=== PATIENT | female | born 1965 | race Caucasian/White ===

== ENCOUNTER 2017-11-17 09:29 | Emergency (ER) | payer MEDICAID, SELFPAY ==
[2017-11-17 09:30] VITALS: BP 105/62; PULSE 96; RESP 16; TEMP 36.5; O2SAT 100; BMI 19.5
--- NOTE | 2017-11-17 09:48 | EKG12_ITS ---
Test Reason : BACK PAIN Blood Pressure : / mmHG Vent. Rate : 087 BPM Atrial Rate : 087 BPM P-R Int : 156 ms QRS Dur : 090 ms QT Int : 358 ms P-R-T Axes : 069 077 074 degrees QTc Int : 430 ms Normal sinus rhythm Normal ECG Confirmed by JUAN MANUEL SUAZO, SHERIN ([id number]), electronic news gathering editor MIREYA WEISS ([id number]) on 11/22/2017 9:02:17 AM Referred By: TATO Confirmed By:SHERIN ZAMBRANO MD
--- NOTE | 2017-11-17 09:49 | CT_ITS ---
STUDY: CT CHEST WITH CONTRAST REASON FOR EXAM: Female, 52 years old. Chest pain. Lung cancer. RADIATION DOSAGE (If Supplied By Facility): CTDIvol = ( 7.66 ) mGy, DLP = ( 381.24 ) mGycm TECHNIQUE: Transaxial imaging was performed following intravenous administration of 75 ml of Isovue 370 contrast material. Individualized dose optimization techniques were used for this CT. COMPARISON: 05/31/2017 FINDINGS: Lungs are adequately inflated. Again noted is a left perihilar spiculated mass which is increased in size since prior exam. Now measuring 2.1 cm AP by 2 cm wide. Increased size of nodules in the left lower lobe as well. No acute airspace disease is noted. Increased spiculated nodule in the right upper lobe. There is no demonstrated pleural abnormality. Normal heart and pericardium. Increased mediastinal and bilateral hilar lymphadenopathy. Normal hilar regions. Normal enhanced pulmonary arteries. Normal aorta arch and descending thoracic aorta. No large pulmonary embolism. Normal osseous structures. There is no demonstrated abnormality of the visualized upper abdomen. CT/Chest WITH Contrast IMPRESSION: Increased size of mediastinal and bihilar lymphadenopathy as well as left perihilar spiculated mass and multiple increase in size of left lower lobe pulmonary nodules. Indicating worsening disease. No evidence of large pulmonary embolism. No acute airspace disease. Electronically Signed: David Sarmiento DO at 11:51 EDT Tel , Service support ,
[2017-11-17 10:17] LABS: Hematocrit 35.5 % (37-47); Hemoglobin 11.7 g/dl (12.0-15.0); Mean Corpuscular Hgb 31.5 pg (27.0-32.0); Mean Corpuscular Volume 95.4 fL (81-99); Mean Platelet Vol. 9.5 fl (6.2-12.0); Platelet Count 151 K/mm3 (150-450); RBC Distribution Width CV 15.4 % (11.6-14.6); RBC Distribution Width SD 52.4 fl (35.1-43.9); Red Blood Count 3.72 M/mm3 (4.2-5.4); White Blood Count 11.5 K/mm3 (4.4-11.0)
--- NOTE | 2017-11-17 10:17 | ED.VISSUMM ---
- ER Visit Summary Date of Service: 11/17/17 Chief Complaint: Back pain History of Present Illness: The patient is a 52 F who states that last night she developed the pain in her right scapular region. She states it is very sharp. It is worse with deep breathing. She states that this feels similar to the pain she experienced in her chest when she was diagnosed with pulmonary embolism. Patient has a history of small cell lung carcinoma stage IIIb. She states that she had been in remission until last summer. She is currently seeing oncology in [place]. Patient sees Dr. Mckeon from pulmonology here at this hospital. She is not currently on blood thinners. Patient notes a worsening of her cough. She denies any neurologic deficits. Physical Examination: 105/62 temperature 97.3 heart rate of 96 respirations are 16 pulse ox is 100% on room air Gen: Well-nourished well-developed Head: Normocephalic atraumatic Eyes: Perrl EOMI ENT: TMs clear no rhinorrhea moist mucous membranes Neck: Supple no lymphadenopathy no JVD nontender CVS: Regular rate rhythm no murmurs normal S1-S2 Respiratory: No distress clear to auscultation bilaterally chest nontender dry cough. Abdomen: Soft nontender nondistended normal bowel sounds no masses Back: Tender to palpation along the right thoracic musculature Extremity: Nontender no edema Skin: Normal color no rash Neuro: alert orientated ?3 CN II-XII intact normal strength sensation reflexes gait cerebellar Psych: Patient is tearful Test Results: EKG shows a sinus rhythm at a rate of 87. White count 11.5. Hemoglobin 11.7. Platelets are 151. Troponin less than 0.02. CTA of the chest does not demonstrate pulmonary embolism. There is noted worsening of her cancer. Emergency Department Course and Treatment: Patient received IV fluids, Dilaudid, and Zofran. She is asleep on repeat examination and was easily awoken. Patient was advised that sometimes patient with aggressive cancers can have severe pain and is not always easily diagnosed. I will write for her to have oxycodone because she does not have any pain medication at home. She states she has not needed it. Patient will be following up with her oncologist return if worsening. Impression: 1. Right thoracic back pain 2. Small cell lung cancer stage IIIB This note was generated with MD Revolutionation software. It may contain incorrect words, spelling, and punctuation that were not noted in review of the chart prior to signing ED Disposition - Plan for ED Patient: Disposition: Home or Assisted Living Chief Complaint: Back Instructions: ED Neck Back Pain General Prescriptions: Oxycodone [Oxyir] 10 mg PO Q6H PRN PRN 5 Days #40 tab PRN Reason: Pain Additional Instructions: Follow-up with your oncologist as scheduled. Please take your CT report with them. Follow-up with your primary care doctor soon as possible.
[2017-11-17 10:18] LABS: Differential Indicated MANUAL DIFF; POSITIVE COUNT YES; POSITIVE DIFFERENTIAL NO; POSITIVE MORPHOLOGY YES
--- NOTE | 2017-11-17 10:20 | ED.DCSUM_ITS ---
- ER Visit Summary Date of Service: 11/17/17 Chief Complaint: Back pain History of Present Illness: The patient is a 52 F who states that last night she developed the pain in her right scapular region. She states it is very sharp. It is worse with deep breathing. She states that this feels similar to the pain she experienced in her chest when she was diagnosed with pulmonary embolism. Patient has a history of small cell lung carcinoma stage IIIb. She states that she had been in remission until last summer. She is currently seeing oncology in [place]. Patient sees Dr. Mckeon from pulmonology here at this hospital. She is not currently on blood thinners. Patient notes a worsening of her cough. She denies any neurologic deficits. Physical Examination: 105/62 temperature 97.3 heart rate of 96 respirations are 16 pulse ox is 100% on room air Gen: Well-nourished well-developed Head: Normocephalic atraumatic Eyes: Perrl EOMI ENT: TMs clear no rhinorrhea moist mucous membranes Neck: Supple no lymphadenopathy no JVD nontender CVS: Regular rate rhythm no murmurs normal S1-S2 Respiratory: No distress clear to auscultation bilaterally chest nontender dry cough. Abdomen: Soft nontender nondistended normal bowel sounds no masses Back: Tender to palpation along the right thoracic musculature Extremity: Nontender no edema Skin: Normal color no rash Neuro: alert orientated ?3 CN II-XII intact normal strength sensation reflexes gait cerebellar Psych: Patient is tearful Test Results: EKG shows a sinus rhythm at a rate of 87. White count 11.5. Hemoglobin 11.7. Platelets are 151. Troponin less than 0.02. CTA of the chest does not demonstrate pulmonary embolism. There is noted worsening of her cancer. Emergency Department Course and Treatment: Patient received IV fluids, Dilaudid , and Zofran. She is asleep on repeat examination and was easily awoken. Patient was advised that sometimes patient with aggressive cancers can have severe pain and is not always easily diagnosed. I will write for her to have oxycodone because she does not have any pain medication at home. She states she has not needed it. Patient will be following up with her oncologist return if worsening. Impression: 1. Right thoracic back pain 2. Small cell lung cancer stage IIIB This note was generated with mycirQleation software. It may contain incorrect words, spelling, and punctuation that were not noted in review of the chart prior to signing ED Disposition - Plan for ED Patient: Disposition: Home or Assisted Living Chief Complaint: Back Instructions: ED Neck Back Pain General Prescriptions: Oxycodone [Oxyir] 10 mg PO Q6H PRN PRN 5 Days #40 tab PRN Reason: Pain Additional Instructions: Follow-up with your oncologist as scheduled. Please take your CT report with them. Follow-up with your primary care doctor soon as possible.
[2017-11-17] MEDS: 0.9% Normal Saline 1,000 ML 1000 ML IV (10:22)
[2017-11-17] MEDS: HYDROmorphone 1 MG/ML Syringe IV (10:22)
[2017-11-17] MEDS: 0.9% Normal Saline 1,000 ML 150 ML IV (10:22)
[2017-11-17] MEDS: Ondansetron 4 MG/2 ML Vial IV (10:22)
[2017-11-17 10:24] LABS: Prothrombin Time (Protime)PT. 13.1 SECONDS (11.7-14.9)
[2017-11-17 10:25] LABS: Partial Thromboplast Time 48.3 Seconds (24.1-36.2)
[2017-11-17 10:29] VITALS: BP 94/71; PULSE 88; RESP 15; O2SAT 94
[2017-11-17 10:34] LABS: AST(SGOT) 12 U/L (15-37); Alanine Aminotransfer ALT/SGPT 29 U/L (13-56); Albumin, Serum 3.7 g/dL (3.2-5.0); Alkaline Phosphatase 127 U/L (45-117); Anion Gap 7 (5-15); BUN 9 mg/dL (7-18); Calcium,Total 8.6 mg/dL (8.5-10.1); Chloride 105 mmol/L (98-107); Creatinine, Serum 0.56 mg/dL (0.55-1.02); EST Glomerular Filtration Rate 119 mL/min (>60); Est Glom Filt Rate - Afr Amer 144 mL/min (>60); Estimated Creatinine Clearance 100.51 ml/min; Globulin 3.7 g/dL (2.2-4.2); Glucose 102 mg/dL (74-106); Potassium 3.9 mmol/L (3.5-5.1); Protein, Total 7.4 g/dL (6.4-8.2); Sodium Level 140 mmol/L (136-145)
[2017-11-17 10:50] LABS: Absolute Neutrophil Count 8.9 X10^3/uL (2.0-7.7); Basophil 1 % (0-1); Eosinophil 3 % (0-5); Lymphocyte 11 % (19-41); Metamyelocyte 1 % (0-1); Monocyte 7 % (0-10); Neutrophil-Segmented 77 % (47-70); Platelet Estimate ADEQUATE (ADEQ); Red Cell Morphology NORM C+C NORMAL (NORM C&C); Total Cells Counted 100 (MANUAL DIFF)
[2017-11-17 10:51] LABS: Absolute Lymphocyte Count 1.27 X10^3/ul (0.83-4.51)
[2017-11-17 12:12] VITALS: BP 95/70; PULSE 90; RESP 21; O2SAT 95
[2017-11-17 12:13] VITALS: BP 90/70; PULSE 91; RESP 21; O2SAT 94
[2017-11-18 10:20] LABS: Pathologist Review Reviewed
== END 2017-11-17 12:47 | disposition home or self-care (01) ==
PROVIDERS: Emergency Provider Emergency Medicine; Family Provider Family Medicine; PCP Family Medicine
DX: M54.6 Pain in thoracic spine (principal); C34.90 Malignant neoplasm of unspecified part of unspecified bronchus or lung; Z86.711 Personal history of pulmonary embolism; J44.9 Chronic obstructive pulmonary disease, unspecified; Z72.0 Tobacco use
CPT/HCPCS: 71260; 80053; 84484; 85025; 85610; 85730; 93005; 96361; 96374; 96375; 99284; J7030; Q9967; A4216; J2405

== ENCOUNTER → 2018-01-17 12:51 | Outpatient (CLI) | payer MEDICAID, SELFPAY ==
--- NOTE | 2018-01-17 12:51 | DT_ITS ---
This patient was seen during an EMR downtime January 16, 2018 - January 23, 2018. This patient may have a combination of paper and electronic documentation or all paper documentation. All documentation is viewable within the e-chart portion of [facility] for each patient visit.
--- NOTE | 2018-01-23 11:20 | PFT ---
INTRODUCTION: The patient is a 52-year-old female that presents for pulmonary function testing secondary to a diagnosis of lung cancer. Respiratory therapy reports good patient effort. Bronchodilators were used during testing. INTERPRETATION: Forced expiration spirometry demonstrates no evidence of a large airways obstructive ventilatory defect, based upon GOLD and ATS criteria. There was no significant response to aerosolized bronchodilators. Spirograms are of good quality and plateau gradually. Body plethysmography was performed and reveals lung volumes to be within normal limits. Diffusing capacity by single breath CO is preserved at 75% of predicted. IMPRESSION: These pulmonary function studies are essentially within normal limits.
== END ==
PROVIDERS: Family Provider Family Medicine; PCP Family Medicine; Visit Provider Internal Medicine Critical Care Medicine
DX: C34.90 Malignant neoplasm of unspecified part of unspecified bronchus or lung (principal); J44.9 Chronic obstructive pulmonary disease, unspecified
CPT/HCPCS: 94060; 94726; 94729

== ENCOUNTER → 2018-03-13 09:38 | Outpatient (CLI) | payer MEDICAID, SELFPAY ==
--- NOTE | 2018-03-13 09:41 | RAD_ITS ---
STUDY: X-RAY - ESOPHAGUS (BARIUM SWALLOW) WITH FLUOROSCOPY REASON FOR EXAM: Female, 52 years old. Dysphagia. TECHNIQUE: 20 view(s) of the esophagus were obtained following swallowing of barium. FLUOROSCOPY TIME (if supplied): (0:41) minutes/seconds COMPARISON: None. FINDINGS: There is no demonstrated esophageal foreign body. There is no demonstrated stricture or mucosal abnormality. Normal gastroesophageal junction, without a demonstrated hiatal hernia. The patient ingested a 12 mm tablet of barium without any difficulty. Normal visualized aortic arch and descending thoracic aorta. Normal visualized pulmonary parenchyma. A jeffrey catheter is seen within the superior vena cava. Normal visualized osseous structures of the thorax. RAD/Esophagus Only IMPRESSION: Normal plain film x-ray examination (barium swallow) of the esophagus. Electronically Signed: Rodney Schwartz MD at 9:17 EDT Tel [phone], Service support ,
== END ==
PROVIDERS: Family Provider Family Medicine; PCP Family Medicine; Visit Provider Otolaryngology Otolaryngology/Facial Plastic Surgery
DX: R13.10 Dysphagia, unspecified (principal); J38.01 Paralysis of vocal cords and larynx, unilateral; C34.90 Malignant neoplasm of unspecified part of unspecified bronchus or lung
CPT/HCPCS: 74220

== ENCOUNTER 2018-05-16 17:25 | Inpatient (IN) | payer MEDICAID, SELFPAY ==
[2018-05-16] VITALS (13 sets, daily range): BP systolic 76–107; BP diastolic 59–90; PULSE 89–101; RESP 13–23; TEMP 36.4–36.6; O2SAT 97–100; BMI 19.2; BMI 19.5; BMI 19.6
--- NOTE | 2018-05-16 17:32 | EKG12_ITS ---
Test Reason : CHEST PAIN Blood Pressure : / mmHG Vent. Rate : 102 BPM Atrial Rate : 102 BPM P-R Int : 160 ms QRS Dur : 114 ms QT Int : 416 ms P-R-T Axes : 078 111 064 degrees QTc Int : 542 ms Sinus tachycardia Biatrial enlargement RSR' or QR pattern in V1 suggests right ventricular conduction delay Left posterior fascicular block Cannot rule out Anterior infarct , age undetermined Inferior lateral ischemia Confirmed by JUAN MANUEL SUAZO, SHERIN ([id number]), deputy editor in chief MIREYA WEISS ([id number]) on 05/22/2018 3:34:35 PM Referred By: Eyad Blue Confirmed By:SHERIN ZAMBRANO MD
--- NOTE | 2018-05-16 17:35 | RAD_ITS ---
STUDY: X-RAY CHEST REASON FOR EXAM: Female, 52 years old. Weakness and decreased oral intake x 2 days. History of lung cancer. TECHNIQUE: Single AP portable upright view of the chest. COMPARISON: AP upright expiratory post biopsy chest x-ray January 04, 2017; CT chest/thorax with IV contrast November 17, 2017. FINDINGS: MediPort again seen in the soft tissues of the right chest wall, its catheter extending to the superior vena cava. Ill-defined right perihilar stranding/scarring, minor peripheral scarring in the lateral right apex, as well as bronchiectatic and emphysematous changes in the medial and apical right upper lobe again noted. Faint nodular density with an eccentric gaseous lucency projecting over the lateral right mid lung may be artifact. The lungs are otherwise clear and borderline to mildly hyperexpanded. There is no demonstrated pleural abnormality. Normal size heart. Normal mediastinum and dyan. Normal visualized pulmonary arteries. Normal visualized aortic arch and descending thoracic aorta. Normal visualized thoracic spine. Normal visualized ribs, clavicles, and shoulders. There is no demonstrated abnormality of the visualized soft tissue structures of the upper abdomen. RAD/Chest 1 View (Portable) IMPRESSION: Stable x-ray examination of the chest since CT chest/thorax November 17, 2017, as described. Electronically Signed: Ken Real MD at 17:56 EDT , Service support ,
[2018-05-16] MEDS: 0.9% Normal Saline 1,000 ML IV.SOLN. 2000 ML IV (17:44)
[2018-05-16] MEDS: Aspirin 300 MG Suppository RECTAL (17:51)
--- NOTE | 2018-05-16 18:05 | CM.ED ---
Social Work Note STEMI Alert called. Face to face with pt's friend, Brian, who also reports to be her HCPOA. Introduced self and role at [facility]. Per Brian the pt had chemo on Tuesday at the [facility] in [place], and it took a larger toll on her than it has in the past. He reports that she has not been eating well, and had stated that she started to use a walker on Tuesday because she had a fall. STEMI cancelled. Copied HCPOA and Living Will and placed in chart. Originals given back to Brian to place in pt's folder. Made aware that SW and RN CM on assigned unit can assist with discharge planning. Geri Robertson, MANAGER BOOK, LIGHTING FIXTURES DECORATOR
[2018-05-16 18:08] LABS: Bacteria 0 SEEN /hpf (None Seen); Mucous, Urine 0 SEEN /hpf (<or=2+)
[2018-05-16 18:14] LABS: Prothrombin Time (Protime)PT. 13.2 SECONDS (11.7-14.9)
[2018-05-16 18:20] LABS: Absolute Lymphocyte Count 1.01 X10^3/ul (0.83-4.51); Absolute Neutrophil Count 2.4 X10^3/uL (2.0-7.7); Basophil# 0.01 X10^3/uL; Basophil% 0.3 % (0-1); Eosinophil# 0.15 X10^3/uL; Eosinophils% 3.8 % (0-5); Hematocrit 38.6 % (37-47); Lymphocyte # 1.01 X10^3/ul (4.0); Lymphocyte % 25.6 % (19-41); Mean Corpuscular Volume 76.3 fL (81-99); Monocyte# 0.35 X10^3/uL; Monocyte% 8.9 % (0-10); Neutrophil # 2.42 X10^3/uL (2.7-7.7); Neutrophil % 61.1 % (47-70); Platelet Count 258 K/mm3 (150-450); RBC Distribution Width CV 16.8 % (11.6-14.6); RBC Distribution Width SD 46.6 fl (35.1-43.9); Red Blood Count 5.06 M/mm3 (4.2-5.4)
[2018-05-16 18:21] LABS: Mean Corp Hgb Conc 33.7 g/gl (32-36); Mean Corpuscular Hgb 25.7 pg (27.0-32.0); POSITIVE COUNT NO; POSITIVE DIFFERENTIAL NO; POSITIVE MORPHOLOGY NO
[2018-05-16 18:23] LABS: Lactic Acid 0.9 mmol/L (0.4-2.0)
[2018-05-16 18:24] LABS: Partial Thromboplast Time 157.3 Seconds (24.1-36.2)
--- NOTE | 2018-05-16 18:28 | ED.VISSUMM ---
- ER Visit Summary Date of Service: 05/16/18 Chief Complaint: Decreased p.o. intake History of Present Illness: The patient is a 52 F patient brought in by EMS for decreased p.o. intake. History of small cell lung cancer recurrent with multiple chemotherapy treatments. Reported last chemotherapy in the last week at [facility]. EMS EKG sent and had concerning for possible STEMI with isolated aVR elevation depression inferior lateral leads. STEMI team was activated, art history instructor Dr. Blue was in the department with her arrival. She was evaluated in the room together. She denied any chest pain, pressure, dyspnea, nausea, vomiting. Reports no p.o. intake for 2 days. No cardiac history. Tobacco history. Review records, noted history of psychiatric disorders of bipolar, depression, PTSD. Patient is a poor historian, additional records from [facility]. Physical Examination: General: thin cachetic, poor historian, protecting airway HEENT: Normocephalic, atraumatic. Dry mucosa membranes Neck: supple, nontender. Cardiovascular: Regular rate and rhythm, no murmurs Respiratory: Normal breath sounds, symmetric, no distress Abdomen: Soft, nontender, nondistended Extremities: Nontender, no edema, pulses intact ?4 Neuro: no focal neurological deficits. Test Results: Repeat EKG in room notes sinus rate of 102, isolated ST elevation in aVR depressions inferior lateral leads. T wave inversions V4 to V6 along with inferior leads. White count 4, hemoglobin 13. Potassium 2 sodium 126 creatinine 2.14, BUN 42. Troponin 0 0.015. Lactic acid 0.9. Blood culture x2 pending. Urine culture pending. Magnesium pending. Chest x-ray negative. Emergency Department Course and Treatment: Patient evaluated cardiology bedside. EKG with concerning findings. However she has no angina symptoms. Blood pressure systolic 76/61 on arrival, sepsis protocol will be initiated. She is afebrile. We will give aspirin. STEMI alert was called off by art history instructor Dr. Blue. Plan if elevated troponin will be to give 300 of Plavix, Lovenox and further workup as inpatient. Patient workup notes AK I with creatinine of 2.14 dyspnea. She has potassium 2.0. Magnesium sent and is pending. Sodium 126. Continue oral fluids blood pressure improved to 93/73 heart rate 93. On reevaluation patient more alert awake she is taken down oral fluids, will try oral potassium for replacement. This time concerns for prerenal AK I. She will continue IV fluids. Discussed with hospitalist, Dr. Waddell for admission to stepdown for close monitoring. Discussed plan of care if patient develops angina symptoms. Treatment Plan: [] Disposition: Admission Impression: 1. Acute kidney injury 2. Hypokalemia 3. Abnormal EKG 4. Hyponatremia 5. Small cell lung cancer This note was generated with Waygo dictation software. It may contain incorrect words, spelling, and punctuation that were not noted in review of the chart prior to signing ED Disposition - Plan for ED Patient: Disposition: Acute Care Hospital [facility] Chief Complaint: General Illness Diagnosis: Acute kidney injury, Hypokalemia, Abnormal EKG, Hyponatremia, Small cell lung cancer Referrals: Fausto Iverson DO [Primary Care Provider] -
--- NOTE | 2018-05-16 18:32 | ED.DCSUM_ITS ---
- ER Visit Summary Date of Service: 05/16/18 Chief Complaint: Decreased p.o. intake History of Present Illness: The patient is a 52 F patient brought in by EMS for decreased p.o. intake. History of small cell lung cancer recurrent with multiple chemotherapy treatments. Reported last chemotherapy in the last week at [facility]. EMS EKG sent and had concerning for possible STEMI with isolated aVR elevation depression inferior lateral leads. STEMI team was activated, night worker Dr. Blue was in the department with her arrival. She was evaluated in the room together. She denied any chest pain, pressure, dyspnea, nausea, vomiting. Reports no p.o. intake for 2 days. No cardiac history. Tobacco history. Review records, noted history of psychiatric disorders of bipolar, depression, PTSD. Patient is a poor historian, additional records from [facility]. Physical Examination: General: thin cachetic, poor historian, protecting airway HEENT: Normocephalic, atraumatic. Dry mucosa membranes Neck: supple, nontender. Cardiovascular: Regular rate and rhythm, no murmurs Respiratory: Normal breath sounds, symmetric, no distress Abdomen: Soft, nontender, nondistended Extremities: Nontender, no edema, pulses intact ?4 Neuro: no focal neurological deficits. Test Results: Repeat EKG in room notes sinus rate of 102, isolated ST elevation in aVR depressions inferior lateral leads. T wave inversions V4 to V6 along with inferior leads. White count 4, hemoglobin 13. Potassium 2 sodium 126 creatinine 2.14, BUN 42. Troponin 0 0.015. Lactic acid 0.9. Blood culture x2 pending. Urine culture pending. Magnesium pending. Chest x-ray negative. Emergency Department Course and Treatment: Patient evaluated cardiology bedside. EKG with concerning findings. However she has no angina symptoms. Blood pr essure systolic 76/61 on arrival, sepsis protocol will be initiated. She is afebrile. We will give aspirin. STEMI alert was called off by night worker Dr. Blue. Plan if elevated troponin will be to give 300 of Plavix, Lovenox and further workup as inpatient. Patient workup notes AK I with creatinine of 2.14 dyspnea. She has potassium 2.0. Magnesium sent and is pending. Sodium 126. Continue oral fluids blood pressure improved to 93/73 heart rate 93. On reevaluation patient more alert awake she is taken down oral fluids, will try oral potassium for replacement. This time concerns for prerenal AK I. She will continue IV fluids. Discussed with hospitalist, Dr. Waddell for admission to stepdown for close monitoring. Discussed plan of care if patient develops angina symptoms. Treatment Plan: [] Disposition: Admission Impression: 1. Acute kidney injury 2. Hypokalemia 3. Abnormal EKG 4. Hyponatremia 5. Small cell lung cancer This note was generated with LootWorks dictation software. It may contain incorrect words, spelling, and punctuation that were not noted in review of the chart prior to signing ED Disposition - Plan for ED Patient: Disposition: Acute Care Hospital [facility] Chief Complaint: General Illness Diagnosis: Acute kidney injury, Hypokalemia, Abnormal EKG, Hyponatremia, Small cell lung cancer Referrals: Fausto Iverson DO [Primary Care Provider] -
[2018-05-16 18:48] LABS: Color, Urine Yellow (Yellow); Glucose, Dipstick Normal (Normal); Ketone-Dipstick 50 mg/dl (Negative); Leukocyte Esterase-Dipstick 25 /ul (Negative); Nitrite-Dipstick Negative (Negative); Occult Blood-Urine 10 /ul (Negative); Protein-Dipstick 100 mg/dl (Negative); Urine Bilirubin Dipstick Negative (Negative); Urine Clarity Sl. Cloudy (Clear); Urine Urobilinogen Normal (Normal)
[2018-05-16 19:04] LABS: ALB/GLOB Ratio 0.8 RATIO (0.9-2.4); AST(SGOT) 53 U/L (15-37); Alanine Aminotransfer ALT/SGPT 37 U/L (13-56); Albumin, Serum 3.1 g/dL (3.2-5.0); Alkaline Phosphatase 110 U/L (45-117); Anion Gap 21 (5-15); BUN 42 mg/dL (7-18); BUN/Creat Ratio 19.6 RATIO (10-20); Calcium,Total 8.3 mg/dL (8.5-10.1); Chloride 96 mmol/L (98-107); Creatinine, Serum 2.14 mg/dL (0.55-1.02); EST Glomerular Filtration Rate 26 mL/min (>60); Est Glom Filt Rate - Afr Amer 31 mL/min (>60); Estimated Creatinine Clearance 25.92 ml/min; Globulin 4.1 g/dL (2.2-4.2); Glucose 67 mg/dL (74-106); Protein, Total 7.2 g/dL (6.4-8.2); Sodium Level 126 mmol/L (136-145)
[2018-05-16 19:18] LABS: Magnesium 2.8 mg/dL (1.6-2.6)
[2018-05-16 19:18] LABS: Red Blood Cells-Urine 0-5 SEEN /hpf (0-5); Squamous Epithelial Cells - UA 0-5 SEEN /hpf (5-10); White Blood Cells 0-5 SEEN /hpf (0-5)
[2018-05-16 19:19] LABS: Amorphous Sediment 1+ PHOS
[2018-05-16] MEDS: 0.9% Normal Saline 1,000 ML 150 ML IV (19:51)
--- NOTE | 2018-05-16 20:00 | PCM.HP.STD ---
Problem List (1) Nausea vomiting and diarrhea Status: Acute (2) Acute kidney injury Status: Acute (3) Hypokalemia Status: Acute (4) Abnormal EKG Status: Acute (5) Hyponatremia Status: Acute (6) Bipolar affect, depressed Status: Chronic Qualifiers: Current episode severity: moderate Qualified Code(s): F31.32 - Bipolar disorder, current episode depressed, moderate (7) Tobacco abuse Status: Chronic History of Present Illness Date of Admission: 05/16/18 Chief Complaint: Nausea, vomiting and diarrhea times x 10 days. The patient is a 52 year old F with a significant history of COPD; tobacco abuse; and right lung small cell carcinoma who presents with a 10-day history of nausea, vomiting and diarrhea. Patient came in with her friend who is her POA. Patient is less talkative because of lethargy. Per her friend and occasionally confirmed by patient, patient received a chemotherapy 10 days ago. She follows up with the [facility] [place] for chemotherapy. In the past she had radiation therapy also for her small cell lung cancer. After her chemotherapy 10 days ago patient have had above symptoms. Also associated with her symptoms is anorexia with decreased fluid and food intake.. Her friend who is a POA check on her on the day of admission and found that she has been lying pretty much at the same place in the past 10 days so he called EMS who brought patient here. Her friend to the patient might have lost some weight. Associated with her symptoms is lethargy. EKG reported by the paramedics showed some ST elevation so ST alert was called. ST elevation was subtle and occured only in aVR. Patient had no chest pain or diaphoresis. ED doctor reported conversation between him (ED Doctor) and retirement village manager. At the ED patient was given aspirin rectally. ED doctor reported that cardiology recommended Plavix and Lovenox if patient has an increase in troponin. And if patient has any chest pain cardiology should be called. Per ED doctor cardiology plans to get echocardiogram in am. Patient was found to have severely low potassium, low sodium and elevation of creatinine above her baseline. 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) Acid reflux disease (Chronic) Rotator cuff syndrome (Chronic) Adrenal nodule (Chronic) COPD (chronic obstructive pulmonary disease) (Chronic) Poor compliance with medication (Chronic) Left atrial thrombus (Chronic) Tobacco dependence (Chronic) PTSD (post-traumatic stress disorder) (Chronic) 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 [place] Spasm of back muscles (Chronic) Manic depression (Chronic) Dyspnea (Chronic) 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) Chest pain (Chronic) Medical History: Medical History (Last Reviewed 05/16/18 @ 20:50 by Sohan Waddell MD) Pulmonary embolism (Acute) I26.99 Tobacco abuse (Chronic) Z72.0 Muscle spasm (Chronic) M62.838 Periodontal disease (Acute) K05.6 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) Z79.01 Nausea & vomiting (Acute) R11.2 Acid reflux disease (Chronic) K21.9 Headache (Acute) R51 Rotator cuff syndrome (Chronic) M75.100 Adrenal nodule (Chronic) E27.9 Encounter for adjustment or management of vascular access device (Acute) Z45.2 Small cell lung cancer (Acute) C34.90 Regional lymph node metastasis present (Acute) C77.9 Lung metastasis (Acute) C78.00 COPD (chronic obstructive pulmonary disease) (Chronic) J44.9 Poor compliance with medication (Chronic) Z91.14 Left atrial thrombus (Chronic) [id number] Tobacco dependence (Chronic) F17.200 PTSD (post-traumatic stress disorder) (Chronic) F43.10 Thrombus of pulmonary vein (Chronic) I26.99 R pulmonary vein as it enters the LA Spasm of back muscles (Chronic) M62.830 Manic depression (Chronic) F31.9 Dyspnea (Chronic) R06.00 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) I82.210 Chest pain (Chronic) R07.9 Allergies acetaminophen [From Sudafed PE Severe Cold] Allergy (Verified 05/16/18 17:58) / dextromethorphan HBr [From Comtrex Cold-Cough] Allergy (Verified 05/16/18 17:58) Anaphylaxis diphenhydramine [From Sudafed PE Severe Cold] Allergy (Verified 05/16/18 17:58) / phenylephrine [From Sudafed PE Severe Cold] Allergy (Verified 05/16/18 17:58) / phenylephrine HCl [From Comtrex Cold-Cough] Allergy (Verified 05/16/18 17:58) Anaphylaxis Home Medications: Ambulatory Orders Medication Instructions Recorded Mirtazapine [Remeron] 7.5 mg PO QHS PRN 05/31/17 Cyclobenzaprine HCl 5 mg PO TID PRN 05/16/18 Diazepam 10 mg PO BID PRN 05/16/18 Ondansetron [Zofran] 8 mg PO Q8H PRN PRN 05/16/18 Oxycodone [Oxyir] 5 mg PO Q6H PRN PRN 05/16/18 Surgical History: Surgical History (Last Reviewed 05/16/18 @ 20:50 by Sohan Waddell MD) History of lung biopsy Z98.890 [facility] 09/29/17, Surgical History: - - 2 C sections and surgery on her foot Psychiatric History: Bipolar, 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 Smoking Status: Current every day smoker Tobacco Use: Cigarettes Alcohol: None - *Family History Maternal Family History: Family History (Last Reviewed 05/17/18 @ 03:08 by Sohan Waddell MD) Mother Diabetes Hypertension Cancer Father Cancer Headache Sister Cancer Brother Cancer History Items: Diabetes, Hypertension, - - mother of lung CA Paternal Family History: Family History (Last Reviewed 05/17/18 @ 03:08 by Sohan Waddell MD) Mother Diabetes Hypertension Cancer Father Cancer Headache Sister Cancer Brother Cancer History Items: - - father had pancreatitic CA Sibling Family History: Family History (Last Reviewed 05/17/18 @ 03:08 by Sohan Waddell MD) Mother Diabetes Hypertension Cancer Father Cancer Headache Sister Cancer Brother Cancer History Items: Cancer - 1 sister of lymphoma and a brother with pancreatic, - - no one in her family has been diagnosed with BPD Review of Systems Constitutional: Reports: Anorexia, Malaise, Weakness, Weight Change - subjective per friend, Fatigue. Denies: Chills, Fever Eyes: Denies: Blurred vision, Pain HEENT: Denies: Difficulty Hearing Cardiovascular: Denies: Chest Pain, Orthopnea, Palpitations Respiratory: Denies: Cough, Shortness of breath at rest, Sputum production Gastrointestinal: Reports: Diarrhea, Nausea, Vomiting. Denies: Abdominal Pain, Hematemesis Genitourinary: Denies: Dysuria Musculoskeletal: Denies: Joint Pain, Joint Tenderness Skin: Denies: Rash, Wounds Neurological: Reports: Confusion. Denies: Tremor Psychiatric: Denies: Anxiety, Depression, Homicidal Ideations, Suicidal Ideations Hematologic/ Lymphatic: Denies: Easy Bruising, Easy Bleeding VTE Information - Inpt Only VTE Present on Admission: No VTE Mechan Device Prophylaxis: None VTE Pharm Prophylaxis ordered?: Yes Patient Problems: Active and Suspected Problems (Last Reviewed 05/16/18 @ 20:50 by Soahn Waddell MD) Acute kidney injury (Acute) Hypokalemia (Acute) Abnormal EKG (Acute) Hyponatremia (Acute) Nausea vomiting and diarrhea (Acute) Small cell lung cancer (Acute) - Physical Exam General: Alert, Oriented x3, Cooperative, Lethargic HEENT: Atraumatic, PERRLA, EOMI, Normocephalic Oral: Dry Mucosa Neck: Supple, No JVD, Negative Carotid Bruits Lungs: Clear to auscultation, Rhonchi - mild Cardiovascular: Regular rate, No murmurs Abdomen: Bowel Sounds Present, Soft, Non Tender Extremities: No edema, Capillary Refill Less than 3 Seconds Skin: No rashes, No breakdown Musculoskeletal: No Tenderness to Palpation of Joints or Extremities Neurological: Cranial nerves II-XII grossly intact Psych/Mental Status: Normal Affect, Appropriate Vital Signs Temp Pulse Resp BP Pulse Ox 97.6 F L 89 16 94/64 98 05/16/18 17:30 05/16/18 19:52 05/16/18 19:52 05/16/18 19:52 05/16/18 17:57 Oxygen Flow Rate (L/min) 2 Oxygen Delivery Method Nasal Cannula Weight: 54 kg Body Mass Index (BMI) 19.2 Laboratory Tests Past 24 Hrs 05/16/18 05/16/18 05/16/18 17:35 17:35 17:35 WBC 4.0 L RBC 5.06 Hgb 13.0 Hct 38.6 MCV 76.3 L MCH 25.7 L MCHC 33.7 RDW 16.8 H RDW Differential 46.6 H Plt Count 258 MPV 9.0 Immature Gran % (Auto) 0.300 Neut % (Auto) 61.1 Lymph % (Auto) 25.6 Coffee % (Auto) 8.9 Eos % (Auto) 3.8 Baso % (Auto) 0.3 Absolute Neuts (auto) 2.4 Absolute Lymphs (auto) 1.01 Total Counted Not Reportable PT 13.2 INR 1.0 APTT 157.3 H* Sodium 126 L Potassium 2.0 L* Chloride 96 L Carbon Dioxide 9.0 L* Anion Gap 21 H BUN 42 H Creatinine 2.14 H Estim Creat Clear Calc 25.92 Est GFR (MDRD) Af Amer 31 L Est GFR (MDRD) Non-Af 26 L BUN/Creatinine Ratio 19.6 Glucose 67 L Lactic Acid Calcium 8.3 L Magnesium Total Bilirubin 0.40 AST 53 H ALT 37 Alkaline Phosphatase 110 Troponin I < 0.015 Total Protein 7.2 Albumin 3.1 L Globulin 4.1 Albumin/Globulin Ratio 0.8 L Urine Color Urine Clarity Urine pH Ur Specific [place] Urine Protein Urine Glucose (UA) Urine Ketones Urine Occult Blood Urine Nitrite Urine Bilirubin Urine Urobilinogen Ur Leukocyte Esterase Urine RBC Urine WBC Ur Squamous Epith Cells Amorphous Sediment Urine Bacteria Urine Mucus 05/16/18 05/16/18 05/16/18 17:35 17:35 18:00 WBC RBC Hgb Hct MCV MCH MCHC RDW RDW Differential Plt Count MPV Immature Gran % (Auto) Neut % (Auto) Lymph % (Auto) Coffee % (Auto) Eos % (Auto) Baso % (Auto) Absolute Neuts (auto) Absolute Lymphs (auto) Total Counted PT INR APTT Sodium Potassium Chloride Carbon Dioxide Anion Gap BUN Creatinine Estim Creat Clear Calc Est GFR (MDRD) Af Amer Est GFR (MDRD) Non-Af BUN/Creatinine Ratio Glucose Lactic Acid 0.9 Calcium Magnesium 2.8 H Total Bilirubin AST ALT Alkaline Phosphatase Troponin I Total Protein Albumin Globulin Albumin/Globulin Ratio Urine Color Yellow Urine Clarity Sl. Cloudy Urine pH 7.0 Ur Specific [place] 1.010 Urine Protein 100 H Urine Glucose (UA) Normal Urine Ketones 50 H Urine Occult Blood 10 H Urine Nitrite Negative Urine Bilirubin Negative Urine Urobilinogen Normal Ur Leukocyte Esterase 25 H Urine RBC 0-5 SEEN Urine WBC 0-5 SEEN Ur Squamous Epith Cells 0-5 SEEN Amorphous Sediment 1+ PHOS Urine Bacteria 0 SEEN Urine Mucus 0 SEEN Assessment/Plan All Active Problems (Last Reviewed 05/16/18 @ 20:50 by Sohan Waddell MD) Acute kidney injury (Acute) Hypokalemia (Acute) Abnormal EKG (Acute) Hyponatremia (Acute) Nausea vomiting and diarrhea (Acute) Pulmonary embolism (Acute) Periodontal disease (Acute) Nausea & vomiting (Acute) Headache (Acute) Encounter for adjustment or management of vascular access device (Acute) Small cell lung cancer (Acute) Regional lymph node metastasis present (Acute) Lung metastasis (Acute) The patient is a 52 year old F with a significant history of COPD; tobacco abuse; and right lung small cell carcinoma who received chemotherapy 10 days ago presenting with a 10-day history of nausea; vomiting; diarrhea; anorexia with poor p.o. intake; and lethargy and found to have severe electrolyte imbalance and abnormal EKG Gastroenteritis Likely due to Chemotherapy Emergency department lab, CBC and BMP were reviewed. Patient received IV fluid bolus at emergency department Normal NSS maintenance fluids initiated. Follow BMP and CBC. C. difficile, enteric pathogens and O&P ordered. Hypotension Likely due to diarrhea and poor p.o. intake causing hypovolemia. Lactic acid unremarkable. Sepsis less likely. Emergency department doctor reported that at emergency department patient's initial blood pressure was 76/51. Status post fluid bolus at emergency department Maintenance Normal Saline was started but changed to bicarbonate with dextrose due to hypoglycemia and severe metabolic acidosis.. Electrolytes imbalance likely due to dehydration and diarrhea Hyponatremia, hypokalemia Bicarbonate infusion as above Patient received potassium p.o. at emergency department. Patient was unable to swallow while inpatient. IV potassium ordered. Magnesium level actually elevated Trend BMP urine chloride urine potassium, urine sodium and urine creatinine ordered. MEAGAN Creatinine on admission was 2.14. Her baseline creatinine is around 0.56 to 0.79. IV fluid hydration as above Avoid nephrotoxic. Urine studies as above Abnormal EKG EKG personally reviewed by me showed less than [address] elevation in aVR and ST depression in inferolateral leads. Received aspirin at emergency department Aspirin and Lipitor daily Cardiology consulted Fasting lipids ordered. Trend troponin; so far negative Anion gap metabolic acidosis Bicarbonate on admission was 9. Anion gap is 21 Likely due to diarrhea and dehydration. Urine electrolytes and ABG ordered. ABG remarkable for metabolic acidosis; with appropriate respiratory compensation by Figueredo formula. Nephrology consult. Small cell lung cancer of the right lung This could also explain her hyponatremia. Oncology consulted. Hypoglycemia Blood glucose 67 on BMP while at ED. On the floor blood glucose was 52. D50 was given. Patient was started on bicarbonate with D5W at 150 mL's per hour but her blood glucose started creeping into 180s to lower 200s so the rate of bicarbonate with D5 W was decreased. Hypoglycemia could be due to poor intake as above. We will check her phosphorus level and replace if low to avoid refeeding syndrome. Thiamine ordered to prevent Wernicke encephalopathy. Debility Likely due to devastating effect of chemotherapy or cancer PT/OT to work with patient. Protein Calorie Malnutrition Cachectic and with low albumin Nutrition consult ordered. Ensure Enlive 120 ml 4 times a day Acute encephalopathy Patient with Lethargy and Dysphagia If electrolytes becomes normal and patient continued to be lethargic consider imaging of her head in the setting of patient having small cell lung cancer. Speech therapy for swallowing and cognitive evaluation Tobacco abuse Reportedly she smokes a few cigarettes per day. She has not smoked for the last 10 days. We will not order a nicotine patch at this time. Inpatient consult to smoke smoking cessation. DVT prophylaxis Noted to have elevated aPTT Subcutaneous heparin initially ordered but not administered secondary to elevated aPTT. Will discontinue heparin subcutaneous and repeat PTT in am. If PTT normal consider thromboprophylaxis in the setting of cancer. SCD ordered Code Visit Inpatient E&M: 39288 Init Hosp L3
--- NOTE | 2018-05-16 20:22 | ECHOCS_ITS ---
Reason For Study: ABN EKG Procedure This was a 2D Doppler, Color Flow transthoracic echocardiogram. The study was technically limited. The exam was of poor technical quality due to poor acoustic windows. Exam performed portable in patient room. Left Ventricle Normal size and thickness. The estimated ejection fraction is 60 %. No regional wall motion abnormalities noted. Right Ventricle Normal size and thickness. Normal systolic function. Atria Normal left atrium. Normal right atrium. Tricuspid Valve Normal tricuspid valve. Unable to estimate RV systolic pressure due to inadequate jet, pulmonary artery pressure probably normal. Pulmonic Valve The pulmonic valve is not well visualized. Great Vessels Normal aortic root. Normal arch. Normal inferior vena cava. Inferior vena cava collapse with sniff. Pericardium/Pleural No pericardial effusion. MMode/2D Measurements & Calculations LVIDd: 2.7 cm IVSd: 1.1 cm LVIDs: 2.1 cm LVPWd: 0.99 cm FS: 20.9 % Interpretation Summary The estimated ejection fraction is 60 %. Unable to estimate RV systolic pressure due to inadequate jet, pulmonary artery pressure probably normal. Compared to echo report dated 09/19/2017, no appreciable changes noted. The study was technically difficult. Ordering Physician: Sohan Waddell Referring Physician: KIMBER PATRICIO Performed By: Ileana Guajardo, JANNETH, RVT
[2018-05-16 21:56] LABS: Cholesterol 157 mg/dL (200); High Density Lipoprotein 23 mg/dL; Triglycerides 159 mg/dL; Very Low Density Lipoprotein 32 mg/dL (5-40)
[2018-05-16] MEDS: Dextrose 50%-Water 25 GM/50 ML DISP.SYRIN IV (22:49)
[2018-05-16] MEDS: 0.9% NaCl VAD Flush 10 ML IV ×3 (23:38→23:40)
[2018-05-16 23:51] LABS: Bedside Glucose 52 mg/dL (70-110)
[2018-05-16 23:51] LABS: Bedside Glucose 182 mg/dL (70-110)
[2018-05-16 23:51] LABS: Bedside Glucose 225 mg/dL (70-110)
[2018-05-17] VITALS (54 sets, daily range): BP systolic 62–110; BP diastolic 45–87; PULSE 89–115; RESP 19–30; TEMP 36.2–38.7; O2SAT 96–100
[2018-05-17 00:26] LABS: Allen Test POS; Base Excess -21 mmol/L (-2 to +2); Bicarbonate 7.7 mmol/L (22-26); Blood Gas Specimen Type ART; O2 Delivery Device Nasal Can; PO2 171 mmHG (75-100); SITE R Radial; SO2 99 % (95-99); Total Carbon Dioxide 8 mmol/L; pCO2 20.2 mmHg (35-45); pH 7.19 (7.35-7.45)
[2018-05-17 01:01] LABS: Bedside Glucose 243 mg/dL (70-110)
--- NOTE | 2018-05-17 01:15 | EKG12_ITS ---
Test Reason : RHY CHANGE Blood Pressure : / mmHG Vent. Rate : 099 BPM Atrial Rate : 099 BPM P-R Int : 156 ms QRS Dur : 090 ms QT Int : 376 ms P-R-T Axes : 068 087 075 degrees QTc Int : 482 ms Normal sinus rhythm ST & T wave abnormality, consider lateral ischemia Abnormal ECG Confirmed by JUAN MANUEL SUAZO, SHERIN ([id number]), loan expeditor MIREYA WEISS ([id number]) on 05/22/2018 3:48:24 PM Referred By: Eyad Blue Confirmed By:SHERIN ZAMBRANO MD
[2018-05-17 03:01] LABS: Bedside Glucose 202 mg/dL (70-110)
[2018-05-17 03:29] LABS: Anion Gap 10 (5-15); BUN 31 mg/dL (7-18); BUN/Creat Ratio 20.5 RATIO (10-20); Calcium,Total 7.5 mg/dL (8.5-10.1); Chloride 106 mmol/L (98-107); Creatinine, Serum 1.51 mg/dL (0.55-1.02); EST Glomerular Filtration Rate 38 mL/min (>60); Est Glom Filt Rate - Afr Amer 46 mL/min (>60); Estimated Creatinine Clearance 37.55 ml/min; Glucose 184 mg/dL (74-106); Potassium 2.7 mmol/L (3.5-5.1); Sodium Level 132 mmol/L (136-145)
[2018-05-17 03:37] LABS: Hematocrit 31.3 % (37-47); Hemoglobin 11.6 g/dl (12.0-15.0); Mean Corp Hgb Conc 37.1 g/gl (32-36); Mean Corpuscular Hgb 27.9 pg (27.0-32.0); Mean Corpuscular Volume 75.2 fL (81-99); Mean Platelet Vol. 8.4 fl (6.2-12.0); Platelet Count 190 K/mm3 (150-450); RBC Distribution Width CV 16.7 % (11.6-14.6); RBC Distribution Width SD 45.7 fl (35.1-43.9); Red Blood Count 4.16 M/mm3 (4.2-5.4); Scan Indicated on CBC? Y/N NO; White Blood Count 2.7 K/mm3 (4.4-11.0)
[2018-05-17] MEDS: 0.9% NaCl VAD Flush 10 ML IV ×3 (04:10→07:02)
[2018-05-17 04:12] LABS: Phosphorus 0.6 mg/dL (2.5-4.9)
[2018-05-17 05:53] LABS: Partial Thromboplast Time 45.8 Seconds (24.1-36.2)
[2018-05-17] MEDS: Heparin Injection (Vial) 5,000 UNIT/ML VIAL 5000 UNIT SC ×3 (07:03→21:48)
[2018-05-17 07:15] LABS: Bedside Glucose 112 mg/dL (70-110)
[2018-05-17 09:58] LABS: Urine Sodium 69 mmol/L (Not Establ.)
--- NOTE | 2018-05-17 09:58 | ONC.CONS.INP ---
Subjective Date of Service:: 05/17/18 Chief Complaint: Small cell lung cancer History of Present Illness: Ms. Neetu Angel is 52 year old woman with a PMH significant for anxiety/depression, tobacco use who was diagnosed with limited stage small cell lung cancer in 2014. She underwent concurrent chemoradiation wtih cisplatin/etoposide and completed prophylactic intracranial irradiation. She presented with local recurrent disease in 2016. Biopsy of LIMA on 04/17/17 was positive for small cell carcinoma. She has since progressed through 3 additional cycles of cisplatin/etoposide, topotecan and weekly paclitaxel. Began nivolumab and ipilimumab on 03/03/18 under the care of Dr. Cabral at [facility]. CT chest obtained 04/14/18 demonstrated response as evidenced by decreased size of 2 LLL nodules and pretracheal, periaortic and mediastinal lymphadenopathy. Received cycle 4 nivolumab/ipilimumab on 05/05/18 at the [facility]. Upon interview, patient is lethargic and unable to answer questions necessary for thorough ROS. Denies pain. 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 LA Spasm of back muscles (Chronic) Manic depression (Chronic) Dyspnea (Chronic) 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) Chest pain (Chronic) Past Medical/Surgical History: Past Medical History - Most Recent Inpatient Visit Past Medical History Start: 05/16/18 20:49 Text: Status: Complete Freq: ONCE Protocol: Document 05/16/18 23:04 [email or web address] (Rec: 05/16/18 23:09 [id number]) BMI Required to complete PMH What is Patient's BMI 19.6 Neurologic Medical History Hx Stroke/TIA Yes Hx Dementia/Alzheimer's No Hx Parkinson's Disease No Hx Seizures No Hx Multiple Sclerosis No Hx Migraines No Cardiac Medical History VTE Present on Admission No Hx of Deep Vein Thrombosis/VTE/PE No Hx Hypertension No Hx Chest Pain/Angina Yes: d/t breathing/upper chest Hx Heart Attack No Hx Cardiac Surgery/Stents/Etc. No Hx Heart Failure No Hx Pacemaker/AICD No Hx Irregular Heartbeat and/or Afib No Hx Anticoagulant Therapy Yes Query Text:(Coumadin, Aspirin, Plavix, Xarelto, etc.) Hx Pain in Legs when Walking/Leg Cramps No Respiratory Medical History Hx COPD Yes Hx Emphysema No Hx Smoking Yes: 1/2 ppd currently/1 ppd for 36 yrs Smoking Status Current every day smoker Tobacco Use Cigarettes Hx Smoking Cessation Counseling No Hx Smoking Exposure Yes Hx Tobacco Use in last 12 months Yes Sent to [facility] Yes Hx of Pipe Smoking Yes Hx Sleep Apnea No CPAP No BIPAP No Do you snore loudly (louder than talking Yes or can be heard through closed doors)? Do you often feel tired/ fatigued/ No sleepy during daytime? Has anyone observed you stop breathing No during sleep? STOP Results Negative GI Medical History Hx Ulcer No Hx Hepatitis No Hx Cirrhosis No Hx GI Bleed No Hx Unplanned Weight Loss No Genitourinary Medical History Indwelling Catheter in Place on Arrival/ No Admission Hx Renal Disease No Hx Dialysis No Musculoskeletal History Hx Arthritis Yes Hx Rheumatoid Arthritis No Endocrine Medical History Hx Diabetes No Hx Thyroid Disease No Hematologic Medical History Hx of Blood Transfusion Yes Hx of Transfusion in last 3 Months No Ever experience any problems with No transfusion(s)? Hx of Preganancy in last 3 Months No Nurse Filling Out Transfusion & ZBEAM Questions: Date: 05/16/18 Time: 23:08 Psycho/Social Medical History Hx Depression Yes Hx Anxiety Yes: prn med Hx Behavior Disorder Yes Hx Alcohol Use No Hx Substance Use No Other Medical History Hx Blood Disorders No Hx Anemia No Hx Cancer Yes: small cell lung cancer WITH METS Hx Drug Resistant Organism No Wound/Pressure Injury Present on Arrival No /Admission Query Text:If yes, chart assessment in Shift/Clinical Findings Central Line/PICC/VAD Present on Arrival Yes /Admission Risk for Readmission Number of Risk Factors 6 At Risk for Readmission Patient is At Risk For Readmission Patient is eligible for Call Back Y Past Medical History (Last Reviewed 05/16/18 @ 20:50 by Sohan Waddell MD) Pulmonary embolism (Acute) Tobacco abuse (Chronic) Muscle spasm (Chronic) Periodontal disease (Acute) detention current use of anticoagulant (Chronic) Nausea & vomiting (Acute) Acid reflux disease (Chronic) Headache (Acute) Rotator cuff syndrome (Chronic) Adrenal nodule (Chronic) Encounter for adjustment or management of vascular access device (Acute) Small cell lung cancer (Acute) Regional lymph node metastasis present (Acute) Lung metastasis (Acute) COPD (chronic obstructive pulmonary disease) (Chronic) Poor compliance with medication (Chronic) Left atrial thrombus (Chronic) Tobacco dependence (Chronic) PTSD (post-traumatic stress disorder) (Chronic) Thrombus of pulmonary vein (Chronic) Spasm of back muscles (Chronic) Manic depression (Chronic) Dyspnea (Chronic) 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) Chest pain (Chronic) Past Surgical History (Last Reviewed 05/16/18 @ 20:50 by Sohan Waddell MD) History of lung biopsy (Resolved) Maternal Family History: Family History (Last Reviewed 05/17/18 @ 03:08 by Sohan Waddell MD) Mother Diabetes Hypertension Cancer Father Cancer Headache Sister Cancer Brother Cancer Family History: Diabetes, Hypertension, - - mother of lung CA Paternal Family History: Family History (Last Reviewed 05/17/18 @ 03:08 by Sohan Waddell MD) Mother Diabetes Hypertension Cancer Father Cancer Headache Sister Cancer Brother Cancer Family History: - - father had pancreatitic CA Sibling Family History: Family History (Last Reviewed 05/17/18 @ 03:08 by Sohan Waddell MD) Mother Diabetes Hypertension Cancer Father Cancer Headache Sister Cancer Brother Cancer Family History: Cancer - 1 sister of lymphoma and a brother with pancreatic, - - no one in her family has been diagnosed with BPD - Social History Smoking Status: Current every day smoker Tobacco Use: Cigarettes Alcohol: None Allergies/Adverse Reactions: Allergy/AdvReac Type Severity Reaction Status Date / Time acetaminophen Allergy / Verified 05/16/18 17:58 [From Sudafed PE Severe Cold] dextromethorphan HBr Allergy Anaphylaxis Verified 05/16/18 17:58 [From Comtrex Cold-Cough] diphenhydramine Allergy / Verified 05/16/18 17:58 [From Sudafed PE Severe Cold] phenylephrine Allergy / Verified 05/16/18 17:58 [From Sudafed PE Severe Cold] phenylephrine HCl Allergy Anaphylaxis Verified 05/16/18 17:58 [From Comtrex Cold-Cough] Review of Systems Constitutional:: Reports: - - Unable to perform ROS d/t patient lethargy Vital Signs Height 5 ft 6.14 in Weight: 121 lb 0.54 oz Weight in Pounds 121.0 lbs Pulse Ox 100 Temperature 99.6 F Pulse Rate 102 Respiratory Rate 27 Blood Pressure [BP] 84/53 Blood Pressure 95/64 Blood Pressure Position [BP] Semi-Fowlers Blood Pressure Position Semi-Fowlers - Physical Exam General: No apparent distress, Lethargic HEENT: Atraumatic, Normocephalic Oropharynx:: Dry mucosa Neck:: Supple, Trachea midline. Negative for: JVD, bilateral Cardiac:: Regular rate, Regular rhythm, Normal S1, Normal S2. Negative for: Murmur Lungs: Diminished, Excusion symmetrical. Negative for: Tachypneic, Increased respiratory effort Abdomen:: Bowel sounds x 4, Soft, Non-tender, Non-distended. Negative for: Hepatosplenomegaly Extremities:: Negative for: Cyanosis, Edema Neurological: Slurred Speech Skin:: Negative for: Lesions, Rash, Petechiae, Ecchymosis Lymphatics:: Negative for: Cervical lymphadenopathy, Supraclavicular lymphadenopathy Laboratory Data: Microbiology 05/16/18 21:30 C. difficile DNA Amplification - Final Stool Laboratory Tests 05/17/18 05/17/18 05/17/18 Range/Units 09:30 09:30 07:11 WBC (4.4-11.0) K/mm3 RBC (4.2-5.4) M/mm3 Hgb (12.0-15.0) g/dl Hct (37-47) % MCV (81-99) fL MCH (27.0-32.0) pg MCHC (32-36) g/gl RDW (11.6-14.6) % RDW Differential (35.1-43.9) fl Plt Count (150-450) K/mm3 MPV (6.2-12.0) fl Immature Gran % (Auto) (0.0-0.9) % Neut % (Auto) (47-70) % Lymph % (Auto) (19-41) % Fannin % (Auto) (0-10) % Eos % (Auto) (0-5) % Baso % (Auto) (0-1) % Absolute Neuts (auto) (2.0-7.7) X10^3/uL Absolute Lymphs (auto) (0.83-4.51) X10^3/ul Total Counted PT (11.7-14.9) SECONDS INR APTT (24.1-36.2) Seconds Specimen Type Sample Site pH (7.35-7.45) Bicarbonate Actual (22-26) mmol/L POC Total CO2 mmol/L Base Excess (-2 to +2) mmol/L O2 Saturation (95-99) % ABG pCO2 (35-45) mmHg ABG pO2 (75-100) mmHG Nicolas Test O2 Delivery Device Liter Flow /min Blood Gas Notified Whom Sodium (136-145) mmol/L Potassium (3.5-5.1) mmol/L Chloride (98-107) mmol/L Carbon Dioxide (21.0-32.0) mmol/L Anion Gap (5-15) BUN (7-18) mg/dL Creatinine (0.55-1.02) mg/dL Estim Creat Clear Calc ml/min Est GFR (MDRD) Af Amer (>60) mL/min Est GFR (MDRD) Non-Af (>60) mL/min BUN/Creatinine Ratio (10-20) RATIO Glucose (74-106) mg/dL Lactic Acid (0.4-2.0) mmol/L Calcium (8.5-10.1) mg/dL Phosphorus (2.5-4.9) mg/dL Magnesium (1.6-2.6) mg/dL Total Bilirubin (0.20-1.00) mg/dL AST (15-37) U/L ALT (13-56) U/L Alkaline Phosphatase (45-117) U/L Troponin I (<0.045) ng/mL Total Protein (6.4-8.2) g/dL Albumin (3.2-5.0) g/dL Globulin (2.2-4.2) g/dL Albumin/Globulin Ratio (0.9-2.4) RATIO Triglycerides ( - 199) mg/dL Cholesterol (200) mg/dL LDL Cholesterol (0-130) mg/dL VLDL Cholesterol (5-40) mg/dL HDL Cholesterol (40 - ) mg/dL Urine Color (Yellow) Urine Clarity (Clear) Urine pH (5.0 - 8.0) Ur Specific Cheney (1.002-1.030) Urine Protein (Negative) mg/dl Urine Glucose (UA) (Normal) mg/dl Urine Ketones (Negative) mg/dl Urine Occult Blood (Negative) /ul Urine Nitrite (Negative) Urine Bilirubin (Negative) mg/dL Urine Urobilinogen (Normal) mg/dl Ur Leukocyte Esterase (Negative) /ul Urine RBC (0-5) /hpf Urine WBC (0-5) /hpf Ur Squamous Epith Cells (5-10) /hpf Amorphous Sediment Urine Bacteria (None Seen) /hpf Urine Mucus (<or=2+) /hpf Ur Random Sodium 69 (Not Establ.) mmol/L Urine Creatinine 25.90 (NO RANGE EST.) mg/dL POC Glucose 112 H (70-110) mg/dL 05/17/18 05/17/18 05/17/18 Range/Units 05:00 03:00 03:00 WBC (4.4-11.0) K/mm3 RBC (4.2-5.4) M/mm3 Hgb (12.0-15.0) g/dl Hct (37-47) % MCV (81-99) fL MCH (27.0-32.0) pg MCHC (32-36) g/gl RDW (11.6-14.6) % RDW Differential (35.1-43.9) fl Plt Count (150-450) K/mm3 MPV (6.2-12.0) fl Immature Gran % (Auto) (0.0-0.9) % Neut % (Auto) (47-70) % Lymph % (Auto) (19-41) % Fannin % (Auto) (0-10) % Eos % (Auto) (0-5) % Baso % (Auto) (0-1) % Absolute Neuts (auto) (2.0-7.7) X10^3/uL Absolute Lymphs (auto) (0.83-4.51) X10^3/ul Total Counted PT (11.7-14.9) SECONDS INR APTT 45.8 H (24.1-36.2) Seconds Specimen Type Sample Site pH (7.35-7.45) Bicarbonate Actual (22-26) mmol/L POC Total CO2 mmol/L Base Excess (-2 to +2) mmol/L O2 Saturation (95-99) % ABG pCO2 (35-45) mmHg ABG pO2 (75-100) mmHG Nicolas Test O2 Delivery Device Liter Flow /min Blood Gas Notified Whom Sodium (136-145) mmol/L Potassium (3.5-5.1) mmol/L Chloride (98-107) mmol/L Carbon Dioxide (21.0-32.0) mmol/L Anion Gap (5-15) BUN (7-18) mg/dL Creatinine (0.55-1.02) mg/dL Estim Creat Clear Calc ml/min Est GFR (MDRD) Af Amer (>60) mL/min Est GFR (MDRD) Non-Af (>60) mL/min BUN/Creatinine Ratio (10-20) RATIO Glucose (74-106) mg/dL Lactic Acid (0.4-2.0) mmol/L Calcium (8.5-10.1) mg/dL Phosphorus 0.6 L* (2.5-4.9) mg/dL Magnesium (1.6-2.6) mg/dL Total Bilirubin (0.20-1.00) mg/dL AST (15-37) U/L ALT (13-56) U/L Alkaline Phosphatase (45-117) U/L Troponin I < 0.015 (<0.045) ng/mL Total Protein (6.4-8.2) g/dL Albumin (3.2-5.0) g/dL Globulin (2.2-4.2) g/dL Albumin/Globulin Ratio (0.9-2.4) RATIO Triglycerides ( - 199) mg/dL Cholesterol (200) mg/dL LDL Cholesterol (0-130) mg/dL VLDL Cholesterol (5-40) mg/dL HDL Cholesterol (40 - ) mg/dL Urine Color (Yellow) Urine Clarity (Clear) Urine pH (5.0 - 8.0) Ur Specific Cheney (1.002-1.030) Urine Protein (Negative) mg/dl Urine Glucose (UA) (Normal) mg/dl Urine Ketones (Negative) mg/dl Urine Occult Blood (Negative) /ul Urine Nitrite (Negative) Urine Bilirubin (Negative) mg/dL Urine Urobilinogen (Normal) mg/dl Ur Leukocyte Esterase (Negative) /ul Urine RBC (0-5) /hpf Urine WBC (0-5) /hpf Ur Squamous Epith Cells (5-10) /hpf Amorphous Sediment Urine Bacteria (None Seen) /hpf Urine Mucus (<or=2+) /hpf Ur Random Sodium (Not Establ.) mmol/L Urine Creatinine (NO RANGE EST.) mg/dL POC Glucose (70-110) mg/dL 05/17/18 05/17/18 05/17/18 Range/Units 03:00 03:00 02:55 WBC 2.7 L (4.4-11.0) K/mm3 RBC 4.16 L (4.2-5.4) M/mm3 Hgb 11.6 L (12.0-15.0) g/dl Hct 31.3 L (37-47) % MCV 75.2 L (81-99) fL MCH 27.9 (27.0-32.0) pg MCHC 37.1 H (32-36) g/gl RDW 16.7 H (11.6-14.6) % RDW Differential 45.7 H (35.1-43.9) fl Plt Count 190 (150-450) K/mm3 MPV 8.4 (6.2-12.0) fl Immature Gran % (Auto) (0.0-0.9) % Neut % (Auto) (47-70) % Lymph % (Auto) (19-41) % Fannin % (Auto) (0-10) % Eos % (Auto) (0-5) % Baso % (Auto) (0-1) % Absolute Neuts (auto) (2.0-7.7) X10^3/uL Absolute Lymphs (auto) (0.83-4.51) X10^3/ul Total Counted PT (11.7-14.9) SECONDS INR APTT (24.1-36.2) Seconds Specimen Type Sample Site pH (7.35-7.45) Bicarbonate Actual (22-26) mmol/L POC Total CO2 mmol/L Base Excess (-2 to +2) mmol/L O2 Saturation (95-99) % ABG pCO2 (35-45) mmHg ABG pO2 (75-100) mmHG Nicolas Test O2 Delivery Device Liter Flow /min Blood Gas Notified Whom Sodium 132 L (136-145) mmol/L Potassium 2.7 L* (3.5-5.1) mmol/L Chloride 106 (98-107) mmol/L Carbon Dioxide 16.0 L (21.0-32.0) mmol/L Anion Gap 10 (5-15) BUN 31 H (7-18) mg/dL Creatinine 1.51 H (0.55-1.02) mg/dL Estim Creat Clear Calc 37.55 ml/min Est GFR (MDRD) Af Amer 46 L (>60) mL/min Est GFR (MDRD) Non-Af 38 L (>60) mL/min BUN/Creatinine Ratio 20.5 H (10-20) RATIO Glucose 184 H (74-106) mg/dL Lactic Acid (0.4-2.0) mmol/L Calcium 7.5 L (8.5-10.1) mg/dL Phosphorus (2.5-4.9) mg/dL Magnesium (1.6-2.6) mg/dL Total Bilirubin (0.20-1.00) mg/dL AST (15-37) U/L ALT (13-56) U/L Alkaline Phosphatase (45-117) U/L Troponin I (<0.045) ng/mL Total Protein (6.4-8.2) g/dL Albumin (3.2-5.0) g/dL Globulin (2.2-4.2) g/dL Albumin/Globulin Ratio (0.9-2.4) RATIO Triglycerides ( - 199) mg/dL Cholesterol (200) mg/dL LDL Cholesterol (0-130) mg/dL VLDL Cholesterol (5-40) mg/dL HDL Cholesterol (40 - ) mg/dL Urine Color (Yellow) Urine Clarity (Clear) Urine pH (5.0 - 8.0) Ur Specific [place]ney (1.002-1.030) Urine Protein (Negative) mg/dl Urine Glucose (UA) (Normal) mg/dl Urine Ketones (Negative) mg/dl Urine Occult Blood (Negative) /ul Urine Nitrite (Negative) Urine Bilirubin (Negative) mg/dL Urine Urobilinogen (Normal) mg/dl Ur Leukocyte Esterase (Negative) /ul Urine RBC (0-5) /hpf Urine WBC (0-5) /hpf Ur Squamous Epith Cells (5-10) /hpf Amorphous Sediment Urine Bacteria (None Seen) /hpf Urine Mucus (<or=2+) /hpf Ur Random Sodium (Not Establ.) mmol/L Urine Creatinine (NO RANGE EST.) mg/dL POC Glucose 202 H (70-110) mg/dL 05/17/18 05/17/18 05/16/18 Range/Units 00:44 00:15 23:42 WBC (4.4-11.0) K/mm3 RBC (4.2-5.4) M/mm3 Hgb (12.0-15.0) g/dl Hct (37-47) % MCV (81-99) fL MCH (27.0-32.0) pg MCHC (32-36) g/gl RDW (11.6-14.6) % RDW Differential (35.1-43.9) fl Plt Count (150-450) K/mm3 MPV (6.2-12.0) fl Immature Gran % (Auto) (0.0-0.9) % Neut % (Auto) (47-70) % Lymph % (Auto) (19-41) % Fannin % (Auto) (0-10) % Eos % (Auto) (0-5) % Baso % (Auto) (0-1) % Absolute Neuts (auto) (2.0-7.7) X10^3/uL Absolute Lymphs (auto) (0.83-4.51) X10^3/ul Total Counted PT (11.7-14.9) SECONDS INR APTT (24.1-36.2) Seconds Specimen Type ART Sample Site R Radial pH 7.19 L* (7.35-7.45) Bicarbonate Actual 7.7 L (22-26) mmol/L POC Total CO2 8 mmol/L Base Excess -21 L (-2 to +2) mmol/L O2 Saturation 99 (95-99) % ABG pCO2 20.2 L (35-45) mmHg ABG pO2 171 H (75-100) mmHG Nicolas Test POS O2 Delivery Device Nasal Can Liter Flow 2.0 /min Blood Gas Notified Whom HOSP Sodium (136-145) mmol/L Potassium (3.5-5.1) mmol/L Chloride (98-107) mmol/L Carbon Dioxide (21.0-32.0) mmol/L Anion Gap (5-15) BUN (7-18) mg/dL Creatinine (0.55-1.02) mg/dL Estim Creat Clear Calc ml/min Est GFR (MDRD) Af Amer (>60) mL/min Est GFR (MDRD) Non-Af (>60) mL/min BUN/Creatinine Ratio (10-20) RATIO Glucose (74-106) mg/dL Lactic Acid (0.4-2.0) mmol/L Calcium (8.5-10.1) mg/dL Phosphorus (2.5-4.9) mg/dL Magnesium (1.6-2.6) mg/dL Total Bilirubin (0.20-1.00) mg/dL AST (15-37) U/L ALT (13-56) U/L Alkaline Phosphatase (45-117) U/L Troponin I (<0.045) ng/mL Total Protein (6.4-8.2) g/dL Albumin (3.2-5.0) g/dL Globulin (2.2-4.2) g/dL Albumin/Globulin Ratio (0.9-2.4) RATIO Triglycerides ( - 199) mg/dL Cholesterol (200) mg/dL LDL Cholesterol (0-130) mg/dL VLDL Cholesterol (5-40) mg/dL HDL Cholesterol (40 - ) mg/dL Urine Color (Yellow) Urine Clarity (Clear) Urine pH (5.0 - 8.0) Ur Specific Cheney (1.002-1.030) Urine Protein (Negative) mg/dl Urine Glucose (UA) (Normal) mg/dl Urine Ketones (Negative) mg/dl Urine Occult Blood (Negative) /ul Urine Nitrite (Negative) Urine Bilirubin (Negative) mg/dL Urine Urobilinogen (Normal) mg/dl Ur Leukocyte Esterase (Negative) /ul Urine RBC (0-5) /hpf Urine WBC (0-5) /hpf Ur Squamous Epith Cells (5-10) /hpf Amorphous Sediment Urine Bacteria (None Seen) /hpf Urine Mucus (<or=2+) /hpf Ur Random Sodium (Not Establ.) mmol/L Urine Creatinine (NO RANGE EST.) mg/dL POC Glucose 243 H 182 H (70-110) mg/dL 05/16/18 05/16/18 05/16/18 Range/Units 23:40 23:01 22:07 WBC (4.4-11.0) K/mm3 RBC (4.2-5.4) M/mm3 Hgb (12.0-15.0) g/dl Hct (37-47) % MCV (81-99) fL MCH (27.0-32.0) pg MCHC (32-36) g/gl RDW (11.6-14.6) % RDW Differential (35.1-43.9) fl Plt Count (150-450) K/mm3 MPV (6.2-12.0) fl Immature Gran % (Auto) (0.0-0.9) % Neut % (Auto) (47-70) % Lymph % (Auto) (19-41) % Fannin % (Auto) (0-10) % Eos % (Auto) (0-5) % Baso % (Auto) (0-1) % Absolute Neuts (auto) (2.0-7.7) X10^3/uL Absolute Lymphs (auto) (0.83-4.51) X10^3/ul Total Counted PT (11.7-14.9) SECONDS INR APTT (24.1-36.2) Seconds Specimen Type Sample Site pH (7.35-7.45) Bicarbonate Actual (22-26) mmol/L POC Total CO2 mmol/L Base Excess (-2 to +2) mmol/L O2 Saturation (95-99) % ABG pCO2 (35-45) mmHg ABG pO2 (75-100) mmHG Nicolas Test O2 Delivery Device Liter Flow /min Blood Gas Notified Whom Sodium (136-145) mmol/L Potassium (3.5-5.1) mmol/L Chloride (98-107) mmol/L Carbon Dioxide (21.0-32.0) mmol/L Anion Gap (5-15) BUN (7-18) mg/dL Creatinine (0.55-1.02) mg/dL Estim Creat Clear Calc ml/min Est GFR (MDRD) Af Amer (>60) mL/min Est GFR (MDRD) Non-Af (>60) mL/min BUN/Creatinine Ratio (10-20) RATIO Glucose (74-106) mg/dL Lactic Acid (0.4-2.0) mmol/L Calcium (8.5-10.1) mg/dL Phosphorus (2.5-4.9) mg/dL Magnesium (1.6-2.6) mg/dL Total Bilirubin (0.20-1.00) mg/dL AST (15-37) U/L ALT (13-56) U/L Alkaline Phosphatase (45-117) U/L Troponin I < 0.015 (<0.045) ng/mL Total Protein (6.4-8.2) g/dL Albumin (3.2-5.0) g/dL Globulin (2.2-4.2) g/dL Albumin/Globulin Ratio (0.9-2.4) RATIO Triglycerides ( - 199) mg/dL Cholesterol (200) mg/dL LDL Cholesterol (0-130) mg/dL VLDL Cholesterol (5-40) mg/dL HDL Cholesterol (40 - ) mg/dL Urine Color (Yellow) Urine Clarity (Clear) Urine pH (5.0 - 8.0) Ur Specific [place]ney (1.002-1.030) Urine Protein (Negative) mg/dl Urine Glucose (UA) (Normal) mg/dl Urine Ketones (Negative) mg/dl Urine Occult Blood (Negative) /ul Urine Nitrite (Negative) Urine Bilirubin (Negative) mg/dL Urine Urobilinogen (Normal) mg/dl Ur Leukocyte Esterase (Negative) /ul Urine RBC (0-5) /hpf Urine WBC (0-5) /hpf Ur Squamous Epith Cells (5-10) /hpf Amorphous Sediment Urine Bacteria (None Seen) /hpf Urine Mucus (<or=2+) /hpf Ur Random Sodium (Not Establ.) mmol/L Urine Creatinine (NO RANGE EST.) mg/dL POC Glucose 225 H 52 L (70-110) mg/dL 05/16/18 05/16/18 05/16/18 Range/Units 21:30 18:00 17:35 WBC (4.4-11.0) K/mm3 RBC (4.2-5.4) M/mm3 Hgb (12.0-15.0) g/dl Hct (37-47) % MCV (81-99) fL MCH (27.0-32.0) pg MCHC (32-36) g/gl RDW (11.6-14.6) % RDW Differential (35.1-43.9) fl Plt Count (150-450) K/mm3 MPV (6.2-12.0) fl Immature Gran % (Auto) (0.0-0.9) % Neut % (Auto) (47-70) % Lymph % (Auto) (19-41) % Fannin % (Auto) (0-10) % Eos % (Auto) (0-5) % Baso % (Auto) (0-1) % Absolute Neuts (auto) (2.0-7.7) X10^3/uL Absolute Lymphs (auto) (0.83-4.51) X10^3/ul Total Counted PT (11.7-14.9) SECONDS INR APTT (24.1-36.2) Seconds Specimen Type Sample Site pH (7.35-7.45) Bicarbonate Actual (22-26) mmol/L POC Total CO2 mmol/L Base Excess (-2 to +2) mmol/L O2 Saturation (95-99) % ABG pCO2 (35-45) mmHg ABG pO2 (75-100) mmHG Nicolas Test O2 Delivery Device Liter Flow /min Blood Gas Notified Whom Sodium (136-145) mmol/L Potassium (3.5-5.1) mmol/L Chloride (98-107) mmol/L Carbon Dioxide (21.0-32.0) mmol/L Anion Gap (5-15) BUN (7-18) mg/dL Creatinine (0.55-1.02) mg/dL Estim Creat Clear Calc ml/min Est GFR (MDRD) Af Amer (>60) mL/min Est GFR (MDRD) Non-Af (>60) mL/min BUN/Creatinine Ratio (10-20) RATIO Glucose (74-106) mg/dL Lactic Acid (0.4-2.0) mmol/L Calcium (8.5-10.1) mg/dL Phosphorus (2.5-4.9) mg/dL Magnesium 2.8 H (1.6-2.6) mg/dL Total Bilirubin (0.20-1.00) mg/dL AST (15-37) U/L ALT (13-56) U/L Alkaline Phosphatase (45-117) U/L Troponin I < 0.015 (<0.045) ng/mL Total Protein (6.4-8.2) g/dL Albumin (3.2-5.0) g/dL Globulin (2.2-4.2) g/dL Albumin/Globulin Ratio (0.9-2.4) RATIO Triglycerides 159 ( - 199) mg/dL Cholesterol 157 (200) mg/dL LDL Cholesterol 102 (0-130) mg/dL VLDL Cholesterol 32 (5-40) mg/dL HDL Cholesterol 23 L (40 - ) mg/dL Urine Color Yellow (Yellow) Urine Clarity Sl. Cloudy (Clear) Urine pH 7.0 (5.0 - 8.0) Ur Specific [place] 1.010 (1.002-1.030) Urine Protein 100 H (Negative) mg/dl Urine Glucose (UA) Normal (Normal) mg/dl Urine Ketones 50 H (Negative) mg/dl Urine Occult Blood 10 H (Negative) /ul Urine Nitrite Negative (Negative) Urine Bilirubin Negative (Negative) mg/dL Urine Urobilinogen Normal (Normal) mg/dl Ur Leukocyte Esterase 25 H (Negative) /ul Urine RBC 0-5 SEEN (0-5) /hpf Urine WBC 0-5 SEEN (0-5) /hpf Ur Squamous Epith Cells 0-5 SEEN (5-10) /hpf Amorphous Sediment 1+ PHOS Urine Bacteria 0 SEEN (None Seen) /hpf Urine Mucus 0 SEEN (<or=2+) /hpf Ur Random Sodium (Not Establ.) mmol/L Urine Creatinine (NO RANGE EST.) mg/dL POC Glucose (70-110) mg/dL 05/16/18 05/16/18 05/16/18 Range/Units 17:35 17:35 17:35 WBC (4.4-11.0) K/mm3 RBC (4.2-5.4) M/mm3 Hgb (12.0-15.0) g/dl Hct (37-47) % MCV (81-99) fL MCH (27.0-32.0) pg MCHC (32-36) g/gl RDW (11.6-14.6) % RDW Differential (35.1-43.9) fl Plt Count (150-450) K/mm3 MPV (6.2-12.0) fl Immature Gran % (Auto) (0.0-0.9) % Neut % (Auto) (47-70) % Lymph % (Auto) (19-41) % [place] % (Auto) (0-10) % Eos % (Auto) (0-5) % Baso % (Auto) (0-1) % Absolute Neuts (auto) (2.0-7.7) X10^3/uL Absolute Lymphs (auto) (0.83-4.51) X10^3/ul Total Counted PT 13.2 (11.7-14.9) SECONDS INR 1.0 APTT 157.3 H* (24.1-36.2) Seconds Specimen Type Sample Site pH (7.35-7.45) Bicarbonate Actual (22-26) mmol/L POC Total CO2 mmol/L Base Excess (-2 to +2) mmol/L O2 Saturation (95-99) % ABG pCO2 (35-45) mmHg ABG pO2 (75-100) mmHG Nicolas Test O2 Delivery Device Liter Flow /min Blood Gas Notified Whom Sodium 126 L (136-145) mmol/L Potassium 2.0 L* (3.5-5.1) mmol/L Chloride 96 L (98-107) mmol/L Carbon Dioxide 9.0 L* (21.0-32.0) mmol/L Anion Gap 21 H (5-15) BUN 42 H (7-18) mg/dL Creatinine 2.14 H (0.55-1.02) mg/dL Estim Creat Clear Calc 25.92 ml/min Est GFR (MDRD) Af Amer 31 L (>60) mL/min Est GFR (MDRD) Non-Af 26 L (>60) mL/min BUN/Creatinine Ratio 19.6 (10-20) RATIO Glucose 67 L (74-106) mg/dL Lactic Acid 0.9 (0.4-2.0) mmol/L Calcium 8.3 L (8.5-10.1) mg/dL Phosphorus (2.5-4.9) mg/dL Magnesium (1.6-2.6) mg/dL Total Bilirubin 0.40 (0.20-1.00) mg/dL AST 53 H (15-37) U/L ALT 37 (13-56) U/L Alkaline Phosphatase 110 (45-117) U/L Troponin I < 0.015 (<0.045) ng/mL Total Protein 7.2 (6.4-8.2) g/dL Albumin 3.1 L (3.2-5.0) g/dL Globulin 4.1 (2.2-4.2) g/dL Albumin/Globulin Ratio 0.8 L (0.9-2.4) RATIO Triglycerides ( - 199) mg/dL Cholesterol (200) mg/dL LDL Cholesterol (0-130) mg/dL VLDL Cholesterol (5-40) mg/dL HDL Cholesterol (40 - ) mg/dL Urine Color (Yellow) Urine Clarity (Clear) Urine pH (5.0 - 8.0) Ur Specific [place] (1.002-1.030) Urine Protein (Negative) mg/dl Urine Glucose (UA) (Normal) mg/dl Urine Ketones (Negative) mg/dl Urine Occult Blood (Negative) /ul Urine Nitrite (Negative) Urine Bilirubin (Negative) mg/dL Urine Urobilinogen (Normal) mg/dl Ur Leukocyte Esterase (Negative) /ul Urine RBC (0-5) /hpf Urine WBC (0-5) /hpf Ur Squamous Epith Cells (5-10) /hpf Amorphous Sediment Urine Bacteria (None Seen) /hpf Urine Mucus (<or=2+) /hpf Ur Random Sodium (Not Establ.) mmol/L Urine Creatinine (NO RANGE EST.) mg/dL POC Glucose (70-110) mg/dL 05/16/18 Range/Units 17:35 WBC 4.0 L (4.4-11.0) K/mm3 RBC 5.06 (4.2-5.4) M/mm3 Hgb 13.0 (12.0-15.0) g/dl Hct 38.6 (37-47) % MCV 76.3 L (81-99) fL MCH 25.7 L (27.0-32.0) pg MCHC 33.7 (32-36) g/gl RDW 16.8 H (11.6-14.6) % RDW Differential 46.6 H (35.1-43.9) fl Plt Count 258 (150-450) K/mm3 MPV 9.0 (6.2-12.0) fl Immature Gran % (Auto) 0.300 (0.0-0.9) % Neut % (Auto) 61.1 (47-70) % Lymph % (Auto) 25.6 (19-41) % [place] % (Auto) 8.9 (0-10) % Eos % (Auto) 3.8 (0-5) % Baso % (Auto) 0.3 (0-1) % Absolute Neuts (auto) 2.4 (2.0-7.7) X10^3/uL Absolute Lymphs (auto) 1.01 (0.83-4.51) X10^3/ul Total Counted Not Reportable PT (11.7-14.9) SECONDS INR APTT (24.1-36.2) Seconds Specimen Type Sample Site pH (7.35-7.45) Bicarbonate Actual (22-26) mmol/L POC Total CO2 mmol/L Base Excess (-2 to +2) mmol/L O2 Saturation (95-99) % ABG pCO2 (35-45) mmHg ABG pO2 (75-100) mmHG Nicolas Test O2 Delivery Device Liter Flow /min Blood Gas Notified Whom Sodium (136-145) mmol/L Potassium (3.5-5.1) mmol/L Chloride (98-107) mmol/L Carbon Dioxide (21.0-32.0) mmol/L Anion Gap (5-15) BUN (7-18) mg/dL Creatinine (0.55-1.02) mg/dL Estim Creat Clear Calc ml/min Est GFR (MDRD) Af Amer (>60) mL/min Est GFR (MDRD) Non-Af (>60) mL/min BUN/Creatinine Ratio (10-20) RATIO Glucose (74-106) mg/dL Lactic Acid (0.4-2.0) mmol/L Calcium (8.5-10.1) mg/dL Phosphorus (2.5-4.9) mg/dL Magnesium (1.6-2.6) mg/dL Total Bilirubin (0.20-1.00) mg/dL AST (15-37) U/L ALT (13-56) U/L Alkaline Phosphatase (45-117) U/L Troponin I (<0.045) ng/mL Total Protein (6.4-8.2) g/dL Albumin (3.2-5.0) g/dL Globulin (2.2-4.2) g/dL Albumin/Globulin Ratio (0.9-2.4) RATIO Triglycerides ( - 199) mg/dL Cholesterol (200) mg/dL LDL Cholesterol (0-130) mg/dL VLDL Cholesterol (5-40) mg/dL HDL Cholesterol (40 - ) mg/dL Urine Color (Yellow) Urine Clarity (Clear) Urine pH (5.0 - 8.0) Ur Specific [place] (1.002-1.030) Urine Protein (Negative) mg/dl Urine Glucose (UA) (Normal) mg/dl Urine Ketones (Negative) mg/dl Urine Occult Blood (Negative) /ul Urine Nitrite (Negative) Urine Bilirubin (Negative) mg/dL Urine Urobilinogen (Normal) mg/dl Ur Leukocyte Esterase (Negative) /ul Urine RBC (0-5) /hpf Urine WBC (0-5) /hpf Ur Squamous Epith Cells (5-10) /hpf Amorphous Sediment Urine Bacteria (None Seen) /hpf Urine Mucus (<or=2+) /hpf Ur Random Sodium (Not Establ.) mmol/L Urine Creatinine (NO RANGE EST.) mg/dL POC Glucose (70-110) mg/dL Diagnostic Data: Diagnostic Data Chest X-Ray 05/16/18 17:35 IMPRESSION: Stable x-ray examination of the chest since CT chest/thorax November 17, 2017, as described. Electronically Signed: Ken Real MD at 17:56 EDT , Service support , Assessment and Plan 52 year old woman with recurrent small cell lung cancer, progressed through multiple lines of palliative chemotherapy now receiving immunotherapy, ipilimumab and nivolumab at [facility] under the care of Dr. Cabral. 1. Small cell lung cancer- Managed by Dr. Cabral as [facility]. Last dose of ipilimumab and nivolumab administered on 05/05/18. Most recent brain MRI to assess for [employer] involvement was completed 01/2018. May consider repeating study given degree of lethargy and cognitive changes. No active therapy is recommended at this time. 2. Electrolyte aberrancies- accompanied by nausea concerning for adrenal insufficiency (although hypokalemia is present rather than hyperkalemia?). May consider endocrinology consult to r/o other endocrinopathies associated with checkpoint inhibitor therapy such as pituitary insufficiency, hypophysitis and hypothyroidism in which case corticosteroids may be indicated. Also may consider nephrology consult r/o SIADH. Case discussed with Dr. Fontanez. Radha Man, MSN, [employer], AOCNP Medications: Prescriptions This Visit Medication Instructions Recorded Cyclobenzaprine HCl 5 mg PO TID PRN 05/16/18 Diazepam 10 mg PO BID PRN 05/16/18 Ondansetron [Zofran] 8 mg PO Q8H PRN PRN 05/16/18 Oxycodone [Oxyir] 5 mg PO Q6H PRN PRN 05/16/18 Medications Added to Medication List This Visit Category Date Time Status Aspirin [Aspirin, Baby] Med 05/17/18 08:00 Active 81 mg PO DAILY@0800 Dextrose 5%-Water 1,000 ml Med 05/17/18 01:33 Active Sodium Bicarbonate 150 meq IV 100 mls/hr Potassium Chloride IVPB [KCl 10Meq/100Ml] Med 05/17/18 10:00 Active 10 meq in 100 ml IV BOLUS Q1H Sodium Phosphate/Na Biphos [Sod. Phos] 30 mm Med 05/17/18 05:55 Active 0.9% Normal Saline 250 ml IV X1 Thiamine Hydrochloride 100 mg Med 05/17/18 03:25 Active 0.9% Normal Saline 50 ml IV DAILY Primary Care Provider: Fausto Iverson DO Referring Provider: Eyad Blue
[2018-05-17 10:10] LABS: Urine Chloride 93 mmol/L (Not Establ.)
[2018-05-17] MEDS: 0.9% Normal Saline 1,000 ML 999 ML IV (11:15)
--- NOTE | 2018-05-17 11:16 | PCM.PN.HOSP ---
Patient Problems: Active and Suspected Problems (Last Reviewed 05/16/18 @ 20:50 by Sohan Waddell MD) Acute kidney injury (Acute) Hypokalemia (Acute) Abnormal EKG (Acute) Hyponatremia (Acute) Nausea vomiting and diarrhea (Acute) Small cell lung cancer (Acute) Subjective: Patient is very lethargic and moribund. Not able to respond with verbal command but only incomprehensible sounds. Blood pressure on the lower side. She was admitted with systolic blood pressure 95 and intermittently in systolic 80s. Temperature was 99.6 in the morning and then 100s, T-max 100.7. Map is 66. Patient is very acidotic, pH 7.19/PCO2 20, PO2 171 on 2 L of oxygen with bicarb on initial BMP 9 which improved to 16 on bicarb drip. ABG is consistent with metabolic acidosis with compensatory respiratory alkalosis Patient is tachypneic. Heart rate is low 100s. 1 L normal saline bolus. ABG stat. Patient is being transferred to ICU. Discussed with mortar mixer. Vitals/I&O's: Vital Signs Temp Pulse Resp BP Pulse Ox 99.6 F H 102 H 22 H 85/57 L 100 05/17/18 07:00 05/17/18 10:00 05/17/18 10:00 05/17/18 10:00 05/17/18 10:00 Oxygen Flow Rate (L/min) 2 Oxygen Delivery Method Nasal Cannula Weight: 121 lb 0.54 oz Body Mass Index (BMI) 19.5 Intake and Output for Last 24 Hours 05/15/18 05/16/18 05/17/18 23:59 23:59 23:59 Intake Total 512 / 512 433 / 433 Output Total 300 / 300 Balance 512 / 512 133 / 133 General: Confused, Disoriented, Lethargic, - - Somnolent HEENT: Atraumatic, PERRLA, EOMI, Normocephalic Oral: Dry Mucosa Neck: Supple, No JVD, Negative Carotid Bruits Lungs: No rhonchi, No wheeze, Diminished - Diminished in both lungs. Cardiovascular: Regular rate, Normal S1, Normal S2, No murmurs Abdomen: Bowel Sounds Present, Soft, Non Tender, Non-Distended Extremities: No edema, Capillary Refill Less than 3 Seconds Skin: No rashes, No breakdown Musculoskeletal: Arthritic Changes Neurological: - - Patient is lethargic and somnolent. Hard to assess neurologically Microbiology Past 72 Hours 05/16/18 21:30 Stool C. difficile DNA Amplification - Final Laboratory Results 05/16/18 17:35: WBC 4.0 L, RBC 5.06, Hgb 13.0, Hct 38.6, MCV 76.3 L, MCH 25.7 L, MCHC 33.7, RDW 16.8 H, RDW Differential 46.6 H, Plt Count 258, MPV 9.0, Immature Gran % (Auto) 0.300, Neut % (Auto) 61.1, Lymph % (Auto) 25.6, [place] % (Auto) 8.9, Eos % (Auto) 3.8, Baso % (Auto) 0.3, Absolute Neuts (auto) 2.4, Absolute Lymphs (auto) 1.01, Total Counted Not Reportable 05/16/18 17:35: PT 13.2, INR 1.0, APTT 157.3 H* 05/16/18 17:35: Sodium 126 L, Potassium 2.0 L*, Chloride 96 L, Carbon Dioxide 9.0 L*, Anion Gap 21 H, BUN 42 H, Creatinine 2.14 H, Estim Creat Clear Calc 25.92, Est GFR (MDRD) Af Amer 31 L, Est GFR (MDRD) Non-Af 26 L, BUN/Creatinine Ratio 19.6, Glucose 67 L, Calcium 8.3 L, Total Bilirubin 0.40, AST 53 H, ALT 37, Alkaline Phosphatase 110, Troponin I < 0.015, Total Protein 7.2, Albumin 3.1 L, Globulin 4.1, Albumin/Globulin Ratio 0.8 L 05/16/18 17:35: Lactic Acid 0.9 05/16/18 17:35: Magnesium 2.8 H 05/16/18 18:00: Urine Color Yellow, Urine Clarity Sl. Cloudy, Urine pH 7.0, Ur Specific [place] 1.010, Urine Protein 100 H, Urine Glucose (UA) Normal, Urine Ketones 50 H, Urine Occult Blood 10 H, Urine Nitrite Negative, Urine Bilirubin Negative, Urine Urobilinogen Normal, Ur Leukocyte Esterase 25 H, Urine RBC 0-5 SEEN, Urine WBC 0-5 SEEN, Ur Squamous Epith Cells 0-5 SEEN, Amorphous Sediment 1+ PHOS, Urine Bacteria 0 SEEN, Urine Mucus 0 SEEN 05/16/18 21:30: Troponin I < 0.015, Triglycerides 159, Cholesterol 157, LDL Cholesterol 102, VLDL Cholesterol 32, HDL Cholesterol 23 L 05/16/18 22:07: POC Glucose 52 L 05/16/18 23:01: POC Glucose 225 H 05/16/18 23:40: Troponin I < 0.015 05/16/18 23:42: POC Glucose 182 H 05/17/18 00:15: Specimen Type ART, Sample Site R Radial, pH 7.19 L*, Bicarbonate Actual 7.7 L, POC Total CO2 8, Base Excess -21 L, O2 Saturation 99, ABG pCO2 20.2 L, ABG pO2 171 H, Nicolas Test POS, O2 Delivery Device Nasal Can, Liter Flow 2.0, Blood Gas Notified Whom HOSP 05/17/18 00:44: POC Glucose 243 H 05/17/18 02:55: POC Glucose 202 H 05/17/18 03:00: WBC 2.7 L, RBC 4.16 L, Hgb 11.6 L, Hct 31.3 L, MCV 75.2 L, MCH 27.9, MCHC 37.1 H, RDW 16.7 H, RDW Differential 45.7 H, Plt Count 190, MPV 8.4 05/17/18 03:00: Sodium 132 L, Potassium 2.7 L*, Chloride 106, Carbon Dioxide 16.0 L, Anion Gap 10, BUN 31 H, Creatinine 1.51 H, Estim Creat Clear Calc 37.55, Est GFR (MDRD) Af Amer 46 L, Est GFR (MDRD) Non-Af 38 L, BUN/Creatinine Ratio 20.5 H, Glucose 184 H, Calcium 7.5 L 05/17/18 03:00: Troponin I < 0.015 05/17/18 03:00: Phosphorus 0.6 L* 05/17/18 05:00: APTT 45.8 H 05/17/18 07:11: POC Glucose 112 H 05/17/18 09:30: Urine Creatinine 25.90 05/17/18 09:30: Urine Chloride 93 05/17/18 09:30: Urine Potassium 28.0 05/17/18 09:30: Ur Random Sodium 69 Current Medications Aspirin (Aspirin, Baby) 81 mg PO DAILY@0800 [facility] Last Admin: 05/17/18 08:47 Dose: Not Given Atorvastatin Calcium (Lipitor) 80 mg PO QHS [facility] Last Admin: 05/16/18 22:27 Dose: Not Given Cyclobenzaprine HCl (Cyclobenzaprine Hcl) 5 mg PO TID PRN PRN Reason: ANXIETY Heparin Sodium (Porcine) (Heparin Na) 5,000 unit SC Q8 [facility] Last Admin: 05/17/18 07:03 Dose: 5,000 unit Sodium Bicarbonate 150 meq/ (Dextrose) 1,150 mls @ 100 mls/hr IV .[id number] [facility] Stop: 05/18/18 00:31 Last Admin: 05/17/18 01:47 Dose: Not Given Thiamine HCl 100 mg/ Sodium (Chloride) 51 mls @ 200 mls/hr IV DAILY [facility] Last Admin: 05/17/18 08:49 Dose: Not Given Potassium Chloride (Kcl 10meq/100ml) 10 meq in 100 mls @ 100 mls/hr IV BOLUS Q1H [facility] Stop: 05/17/18 11:59 Sodium Chloride () 1,000 mls @ 999 mls/hr IV .Q1H1M ONE Stop: 05/17/18 12:05 Last Admin: 05/17/18 11:15 Dose: 999 mls/hr Lorazepam (Ativan) 1 mg PO Q4H PRN PRN PRN Reason: ANXIETY Magnesium Hydroxide (Milk Of Magnesia) 30 ml PO DAILY PRN PRN Reason: Constipation Mirtazapine (Remeron) 7.5 mg PO QHS PRN PRN Reason: SLEEP Ondansetron HCl (Zofran) 8 mg PO Q8H PRN PRN PRN Reason: NAUSEA Ondansetron HCl (Zofran) 4 mg IV Q6H PRN PRN PRN Reason: NAUSEA/VOMITING Oxycodone HCl (Oxyir) 5 mg PO Q6H PRN PRN PRN Reason: PAIN Sodium Chloride () 10 ml IV UD PRN PRN Reason: VAD FLUSH Last Admin: 05/17/18 07:02 Dose: 10 ml Medical Necessity - Tobacco Use Smoking Status: Current every day smoker Tobacco Use: Cigarettes Assessment/Plan All Active Problems (Last Reviewed 05/16/18 @ 20:50 by Sohan Waddell MD) Acute kidney injury (Acute) Hypokalemia (Acute) Abnormal EKG (Acute) Hyponatremia (Acute) Nausea vomiting and diarrhea (Acute) Pulmonary embolism (Acute) Periodontal disease (Acute) Nausea & vomiting (Acute) Headache (Acute) Encounter for adjustment or management of vascular access device (Acute) Small cell lung cancer (Acute) Regional lymph node metastasis present (Acute) Lung metastasis (Acute) There is a 52 female with history of COPD, right side limited small cell cancer on chemoradiation before and now on immunotherapy, follows Dr. Giraldo in [facility] was admitted yesterday night for 10 days history of nausea, vomiting, diarrhea, anorexia and poor oral intake, lethargic with altered mental status and severe electrolyte imbalance to stepdown. The patient was initially resuscitated with IV fluid normal saline, electrolyte repletion and bicarb drip for severe metabolic acidosis. Patient was later transferred to ICU. Discussed with the oncologist team and Dr. Mckeon. 1. Septic shock/hypovolemic shock secondary to fluid loss: Patient is currently admitted in ICU. C. difficile and entry but probably panel are negative. Blood culture drawn on 05/16 and then in ICU, 05/17 are pending. On IV fluid resuscitation. Started on Levophed drip. Currently on IV vancomycin and meropenem for broad-spectrum coverage. 2. Severe electrolyte imbalance with high anion gap metabolic acidosis with compensatory respiratory alkalosis: Hypokalemia, hypophosphatemia and hyponatremia: Potassium was 2.0. It improved to 2.7 and then back to 2.2. Phosphorus 0.6 improved 1.8. Oncologist think electrolyte imbalance may be secondary to endocrinopathy due to immunotherapy. Continue monitoring and replacement. 3. Acute kidney injury most probably secondary to hypovolemia/prerenal etiology: Monitor creatinine and electrolytes as mentioned above. Sack Sewer Machine consulted. 4. Abnormal EKG: Patient had ST depression in inferolateral leads and slight ST elevation in aVR. Discussed with Dr. Blue and he thinks there is no coronary event as patient troponins are negative. It may be secondary to electrolyte imbalance: 5. Right-sided small cell lung cancer with history of multiple chemoradiation, currently immunotherapy ipilimumab and nivolumab at [facility] under the care of Dr. Cabral. Discussed with the oncologist Radha FRIEDMAN. Severe protein calorie malnutrition: Brake Operator Helper consult. 6. 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 Multiple comorbidities complicates the present care and expect difficult and delay recovery. Poor prognosis. DVT prophylaxis: On heparin 500 subcutaneous 3 times daily. Microbiology Past 72 Hours 05/16/18 21:30 Stool Enteric Bacteriology - Final 05/16/18 21:30 Stool C. difficile DNA Amplification - Final Laboratory Results 05/17/18 03:00: Sodium 132 L, Potassium 2.7 L*, Chloride 106, Carbon Dioxide 16.0 L, Anion Gap 10, BUN 31 H, Creatinine 1.51 H, Estim Creat Clear Calc 37.55, Est GFR (MDRD) Af Amer 46 L, Est GFR (MDRD) Non-Af 38 L, BUN/Creatinine Ratio 20.5 H, Glucose 184 H, Calcium 7.5 L 05/17/18 03:00: Troponin I < 0.015 05/17/18 03:00: Phosphorus 0.6 L* 05/17/18 12:09: Specimen Type ART, Sample Site R Brachial, pH 7.36, Bicarbonate Actual 13.7 L, POC Total CO2 14, Base Excess -12 L, O2 Saturation 99, ABG pCO2 24.1 L, ABG pO2 123 H, O2 Delivery Device Nasal Can, Liter Flow 2.0, Blood Gas Notified Whom ICU MD, Blood Gas Notified Time 1207 05/17/18 12:45: Phosphorus 1.8 L 05/17/18 12:45: WBC 2.3 L, RBC 3.73 L, Hgb 10.4 L, Hct 27.9 L, MCV 74.8 L, MCH 27.9, MCHC 37.3 H, RDW 16.8 H, RDW Differential 46.1 H, Plt Count 164, MPV 8.3, Immature Gran % (Auto) 0.000, Neut % (Auto) 66.5, Lymph % (Auto) 23.9, [place] % (Auto) 6.1, Eos % (Auto) 3.5, Baso % (Auto) 0.0, Absolute Neuts (auto) 1.5 L, Absolute Lymphs (auto) 0.55 L, Total Counted Not Reportable, Platelet Estimate ADEQUATE, Hypochromasia RARE, Microcytosis 1+ 05/17/18 12:45: Sodium 137, Potassium 2.2 L*, Chloride 109 H, Carbon Dioxide 18.0 L, Anion Gap 10, BUN 20 H, Creatinine 1.22 H, Estim Creat Clear Calc 46.22, Est GFR (MDRD) Af Amer 59 L, Est GFR (MDRD) Non-Af 49 L, BUN/Creatinine Ratio 16.4, Glucose 67 L, Calcium 7.2 L Active Medications Aspirin (Aspirin, Baby) 81 mg PO DAILY@0800 [facility] Last Admin: 05/17/18 08:47 Dose: Not Given Atorvastatin Calcium (Lipitor) 80 mg PO QHS [facility] Last Admin: 05/16/18 22:27 Dose: Not Given Cyclobenzaprine HCl (Cyclobenzaprine Hcl) 5 mg PO TID PRN PRN Reason: ANXIETY Heparin Sodium (Beef Lung) (Heparin 500 Unit/5 Ml (100/Ml)) 500 unit IV UD PRN PRN Reason: HEPARIN FLUSH Heparin Sodium (Porcine) (Heparin Na) 5,000 unit SC Q8 [facility] Last Admin: 05/17/18 13:53 Dose: 5,000 unit Sodium Bicarbonate 150 meq/ (Dextrose) 1,150 mls @ 100 mls/hr IV .[id number] [facility] Stop: 05/18/18 00:31 Last Admin: 05/17/18 12:57 Dose: 100 mls/hr Thiamine HCl 100 mg/ Sodium (Chloride) 51 mls @ 200 mls/hr IV DAILY [facility] Last Admin: 05/17/18 13:11 Dose: 200 mls/hr Norepinephrine Bitartrate 8 mg (/ Dextrose) 258 mls @ 9.68 mls/hr IV .[id number] [facility] Last Admin: 05/17/18 13:38 Dose: 9.68 mls/hr Vancomycin IV Pharmacy to Dose (1 ea/ Sodium Chloride) 500 mls @ 250 mls/hr IV X1 PRN; Protocol PRN Reason: Rx to Dose Potassium Phosphate 40 mm/ (Sodium Chloride) 513.3333 mls @ 62.5 mls/hr IV X1 ONE Stop: 05/17/18 22:12 Meropenem 500 mg/ Sodium (Chloride) 60 mls @ 100 mls/hr IV Q8 [facility] Last Admin: 05/17/18 13:44 Dose: 100 mls/hr Vancomycin HCl () 500 mg in 100 mls @ 100 mls/hr IV Q12H [facility] Lorazepam (Ativan) 1 mg PO Q4H PRN PRN PRN Reason: ANXIETY Magnesium Hydroxide (Milk Of Magnesia) 30 ml PO DAILY PRN PRN Reason: Constipation Mirtazapine (Remeron) 7.5 mg PO QHS PRN PRN Reason: SLEEP Ondansetron HCl (Zofran) 8 mg PO Q8H PRN PRN PRN Reason: NAUSEA Ondansetron HCl (Zofran) 4 mg IV Q6H PRN PRN PRN Reason: NAUSEA/VOMITING Oxycodone HCl (Oxyir) 5 mg PO Q6H PRN PRN PRN Reason: PAIN Sodium Chloride () 10 ml IV UD PRN PRN Reason: VAD FLUSH Last Admin: 05/17/18 07:02 Dose: 10 ml Sodium Chloride () 10 ml IV UD PRN PRN Reason: VAD FLUSH . Code Visit Inpatient E&M: 27243 Subs Hosp L3
--- NOTE | 2018-05-17 11:21 | PN_ITS ---
Patient Problems: Active and Suspected Problems (Last Reviewed 05/16/18 @ 20:50 by Sohan Waddell MD) Acute kidney injury (Acute) Hypokalemia (Acute) Abnormal EKG (Acute) Hyponatremia (Acute) Nausea vomiting and diarrhea (Acute) Small cell lung cancer (Acute) Subjective: Patient is very lethargic and moribund. Not able to respond with verbal command but only incomprehensible sounds. Blood pressure on the lower side. She was admitted with systolic blood pressure 95 and intermittently in systolic 80s. Temperature was 99.6 in the morning and then 100s, T-max 100.7. Map is 66. Patient is very acidotic, pH 7.19/PCO2 20, PO2 171 on 2 L of oxygen with bicarb on initial BMP 9 which improved to 16 on bicarb drip. ABG is consistent with metabolic acidosis with compensatory respiratory alkalosis Patient is tachypneic. Heart rate is low 100s. 1 L normal saline bolus. ABG stat. Patient is being transferred to ICU. Discussed with syrup filterer. Vitals/I&O's: Vital Signs Temp Pulse Resp BP Pulse Ox 99.6 F H 102 H 22 H 85/57 L 100 05/17/18 07:00 05/17/18 10:00 05/17/18 10:00 05/17/18 10:00 05/17/18 10:00 Oxygen Flow Rate (L/min) 2 Oxygen Delivery Method Nasal Cannula Weight: 121 lb 0.54 oz Body Mass Index (BMI) 19.5 Intake and Output for Last 24 Hours 05/15/18 05/16/18 05/17/18 23:59 23:59 23:59 Intake Total 512 / 512 433 / 433 Output Total 300 / 300 Balance 512 / 512 133 / 133 General: Confused, Disoriented, Lethargic, - - Somnolent HEENT: Atraumatic, PERRLA, EOMI, Normocephalic Oral: Dry Mucosa Neck: Supple, No JVD, Negative Carotid Bruits Lungs: No rhonchi, No wheeze, Diminished - Diminished in both lungs. Cardiovascular: Regular rate, Normal S1, Normal S2, No murmurs Abdomen: Bowel Sounds Present, Soft, Non Tender, Non-Distended Extremities: No edema, Capillary Refill Less than 3 Seconds Skin: No rashes, No breakdown Musculoskeletal: Arthritic Changes Neurological: - - Patient is lethargic and somnolent. Hard to assess neurologically Microbiology Past 72 Hours 05/16/18 21:30 Stool C. difficile DNA Amplification - Final Laboratory Results 05/16/18 17:35: WBC 4.0 L, RBC 5.06, Hgb 13.0, Hct 38.6, MCV 76.3 L, MCH 25.7 L, MCHC 33.7, RDW 16.8 H, RDW Differential 46.6 H, Plt Count 258, MPV 9.0, Immature Gran % (Auto) 0.300, Neut % (Auto) 61.1, Lymph % (Auto) 25.6, [place] % (Auto) 8.9, Eos % (Auto) 3.8, Baso % (Auto) 0.3, Absolute Neuts (auto) 2.4, Absolute Lymphs (auto) 1.01, Total Counted Not Reportable 05/16/18 17:35: PT 13.2, INR 1.0, APTT 157.3 H* 05/16/18 17:35: Sodium 126 L, Potassium 2.0 L*, Chloride 96 L, Carbon Dioxide 9.0 L*, Anion Gap 21 H, BUN 42 H, Creatinine 2.14 H, Estim Creat Clear Calc 25.92, Est GFR (MDRD) Af Amer 31 L, Est GFR (MDRD) Non-Af 26 L, BUN/Creatinine Ratio 19.6, Glucose 67 L, Calcium 8.3 L, Total Bilirubin 0.40, AST 53 H, ALT 37, Alkaline Phosphatase 110, Troponin I < 0.015, Total Protein 7.2, Albumin 3.1 L, Globulin 4.1, Albumin/Globulin Ratio 0.8 L 05/16/18 17:35: Lactic Acid 0.9 05/16/18 17:35: Magnesium 2.8 H 05/16/18 18:00: Urine Color Yellow, Urine Clarity Sl. Cloudy, Urine pH 7.0, Ur Specific [place] 1.010, Urine Protein 100 H, Urine Glucose (UA) Normal, Urine Ketones 50 H, Urine Occult Blood 10 H, Urine Nitrite Negative, Urine Bilirubin Negative, Urine Urobilinogen Normal, Ur Leukocyte Esterase 25 H, Urine RBC 0-5 SEEN, Urine WBC 0-5 SEEN, Ur Squamous Epith Cells 0-5 SEEN, Amorphous Sediment 1+ PHOS, Urine Bacteria 0 SEEN, Urine Mucus 0 SEEN 05/16/18 21:30: Troponin I < 0.015, Triglycerides 159, Cholesterol 157, LDL Cholesterol 102, VLDL Cholesterol 32, HDL Cholesterol 23 L 05/16/18 22:07: POC Glucose 52 L 05/16/18 23:01: POC Glucose 225 H 05/16/18 23:40: Troponin I < 0.015 05/16/18 23:42: POC Glucose 182 H 05/17/18 00:15: Specimen Type ART, Sample Site R Radial, pH 7.19 L*, Bicarbonate Actual 7.7 L, POC Total CO2 8, Base Excess -21 L, O2 Saturation 99, ABG pCO2 20.2 L, ABG pO2 171 H, Nicolas Test POS, O2 Delivery Device Nasal Can, Liter Flow 2.0, Blood Gas Notified Whom HOSP 05/17/18 00:44: POC Glucose 243 H 05/17/18 02:55: POC Glucose 202 H 05/17/18 03:00: WBC 2.7 L, RBC 4.16 L, Hgb 11.6 L, Hct 31.3 L, MCV 75.2 L, MCH 27.9, MCHC 37.1 H, RDW 16.7 H, RDW Differential 45.7 H, Plt Count 190, MPV 8.4 05/17/18 03:00: Sodium 132 L, Potassium 2.7 L*, Chloride 106, Carbon Dioxide 16.0 L, Anion Gap 10, BUN 31 H, Creatinine 1.51 H, Estim Creat Clear Calc 37.55, Est GFR (MDRD) Af Amer 46 L, Est GFR (MDRD) Non-Af 38 L, BUN/Creatinine Ratio 20.5 H, Glucose 184 H, Calcium 7.5 L 05/17/18 03:00: Troponin I < 0.015 05/17/18 03:00: Phosphorus 0.6 L* 05/17/18 05:00: APTT 45.8 H 05/17/18 07:11: POC Glucose 112 H 05/17/18 09:30: Urine Creatinine 25.90 05/17/18 09:30: Urine Chloride 93 05/17/18 09:30: Urine Potassium 28.0 05/17/18 09:30: Ur Random Sodium 69 Current Medications Aspirin (Aspirin, Baby) 81 mg PO DAILY@0800 [facility] Last Admin: 05/17/18 08:47 Dose: Not Given Atorvastatin Calcium (Lipitor) 80 mg PO QHS [facility] Last Admin: 05/16/18 22:27 Dose: Not Given Cyclobenzaprine HCl (Cyclobenzaprine Hcl) 5 mg PO TID PRN PRN Reason: ANXIETY Heparin Sodium (Porcine) (Heparin Na) 5,000 unit SC Q8 [facility] Last Admin: 05/17/18 07:03 Dose: 5,000 unit Sodium Bicarbonate 150 meq/ (Dextrose) 1,150 mls @ 100 mls/hr IV .[id number] [facility] Stop: 05/18/18 00:31 Last Admin: 05/17/18 01:47 Dose: Not Given Thiamine HCl 100 mg/ Sodium (Chloride) 51 mls @ 200 mls/hr IV DAILY [facility] Last Admin: 05/17/18 08:49 Dose: Not Given Potassium Chloride (Kcl 10meq/100ml) 10 meq in 100 mls @ 100 mls/hr IV BOLUS Q1H [facility] Stop: 05/17/18 11:59 Sodium Chloride () 1,000 mls @ 999 mls/hr IV .[id number] [facility] Stop: 05/17/18 12:05 Last Admin: 05/17/18 11:15 Dose: 999 mls/hr Lorazepam (Ativan) 1 mg PO Q4H PRN PRN PRN Reason: ANXIETY Magnesium Hydroxide (Milk Of Magnesia) 30 ml PO DAILY PRN PRN Reason: Constipation Mirtazapine (Remeron) 7.5 mg PO QHS PRN PRN Reason: SLEEP Ondansetron HCl (Zofran) 8 mg PO Q8H PRN PRN PRN Reason: NAUSEA Ondansetron HCl (Zofran) 4 mg IV Q6H PRN PRN PRN Reason: NAUSEA/VOMITING Oxycodone HCl (Oxyir) 5 mg PO Q6H PRN PRN PRN Reason: PAIN Sodium Chloride () 10 ml IV UD PRN PRN Reason: VAD FLUSH Last Admin: 05/17/18 07:02 Dose: 10 ml Medical Necessity - Tobacco Use Smoking Status: Current every day smoker Tobacco Use: Cigarettes Assessment/Plan All Active Problems (Last Reviewed 05/16/18 @ 20:50 by Sohan Waddell MD) Acute kidney injury (Acute) Hypokalemia (Acute) Abnormal EKG (Acute) Hyponatremia (Acute) Nausea vomiting and diarrhea (Acute) Pulmonary embolism (Acute) Periodontal disease (Acute) Nausea & vomiting (Acute) Headache (Acute) Encounter for adjustment or management of vascular access device (Acute) Small cell lung cancer (Acute) Regional lymph node metastasis present (Acute) Lung metastasis (Acute) There is a 52 female with history of COPD, right side limited small cell cancer on chemoradiation before and now on immunotherapy, follows Dr. Giraldo in [facility] was admitted yesterday night for 10 days history of nausea, vomiting, diarrhea, anorexia and poor oral intake, lethargic with altered mental status and severe electrolyte imbalance to stepdown. The patient was initially resuscitated with IV fluid normal saline, electrolyte repletion and bicarb drip for severe metabolic acidosis. Patient was later transferred to ICU. Discussed with the oncologist team and Dr. Mckeon. 1. Septic shock/hypovolemic shock secondary to fluid loss: Patient is currently admitted in ICU. C. difficile and entry but probably panel are negative. Blood culture drawn on 05/16 and then in ICU, 05/17 are pending. On IV fluid resuscitation. Started on Levophed drip. Currently on IV vancomycin and meropenem for broad-spectrum coverage. 2. Severe electrolyte imbalance with high anion gap metabolic acidosis with compensatory respiratory alkalosis: Hypokalemia, hypophosphatemia and hyponatremia: Potassium was 2.0. It improved to 2.7 and then back to 2.2. Phosphorus 0.6 improved 1.8. Oncologist think electrolyte imbalance may be secondary to endocrinopathy due to immunotherapy. Continue monitoring and replacement. 3. Acute kidney injury most probably secondary to hypovolemia/prerenal etiology: Monitor creatinine and electrolytes as mentioned above. Blasting Helper consulted. 4. Abnormal EKG: Patient had ST depression in inferolateral leads and slight ST elevation in aVR. Discussed with Dr. Blue and he thinks there is no coronary event as patient troponins are negative. It may be secondary to electrolyte imbalance: 5. Right-sided small cell lung cancer with history of multiple chemoradiation, currently immunotherapy ipilimumab and nivolumab at [facility] under the care of Dr. Cabral. Discussed with the oncologist Radha FRIEDMAN. Severe protein calorie malnutrition: Medical Device Sales consult. 6. 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 Multiple comorbidities complicates the present care and expect difficult and delay recovery. Poor prognosis. DVT prophylaxis: On heparin 500 subcutaneous 3 times daily. Microbiology Past 72 Hours 05/16/18 21:30 Stool Enteric Bacteriology - Final 05/16/18 21:30 Stool C. difficile DNA Amplification - Final Laboratory Results 05/17/18 03:00: Sodium 132 L, Potassium 2.7 L*, Chloride 106, Carbon Dioxide 16.0 L, Anion Gap 10, BUN 31 H, Creatinine 1.51 H, Estim Creat Clear Calc 37.55, Est GFR (MDRD) Af Amer 46 L, Est GFR (MDRD) Non-Af 38 L, BUN/Creatinine Ratio 20.5 H, Glucose 184 H, Calcium 7.5 L 05/17/18 03:00: Troponin I < 0.015 05/17/18 03:00: Phosphorus 0.6 L* 05/17/18 12:09: Specimen Type ART, Sample Site R Brachial, pH 7.36, Bicarbonate Actual 13.7 L, POC Total CO2 14, Base Excess -12 L, O2 Saturation 99, ABG pCO2 24.1 L, ABG pO2 123 H, O2 Delivery Device Nasal Can, Liter Flow 2.0, Blood Gas Notified Whom ICU MD, Blood Gas Notified Time 1207 05/17/18 12:45: Phosphorus 1.8 L 05/17/18 12:45: WBC 2.3 L, RBC 3.73 L, Hgb 10.4 L, Hct 27.9 L, MCV 74.8 L, MCH 27.9, MCHC 37.3 H, RDW 16.8 H, RDW Differential 46.1 H, Plt Count 164, MPV 8.3, Immature Gran % (Auto) 0.000, Neut % (Auto) 66.5, Lymph % (Auto) 23.9, [place]son % (Auto) 6.1, Eos % (Auto) 3.5, Baso % (Auto) 0.0, Absolute Neuts (auto) 1.5 L, Absolute Lymphs (auto) 0.55 L, Total Counted Not Reportable, Platelet Estimate ADEQUATE, Hypochromasia RARE, Microcytosis 1+ 05/17/18 12:45: Sodium 137, Potassium 2.2 L*, Chloride 109 H, Carbon Dioxide 18.0 L, Anion Gap 10, BUN 20 H, Creatinine 1.22 H, Estim Creat Clear Calc 46.22, Est GFR (MDRD) Af Amer 59 L, Est GFR (MDRD) Non-Af 49 L, BUN/Creatinine Ratio 16.4, Glucose 67 L, Calcium 7.2 L Active Medications Aspirin (Aspirin, Baby) 81 mg PO DAILY@0800 [facility] Last Admin: 05/17/18 08:47 Dose: Not Given Atorvastatin Calcium (Lipitor) 80 mg PO QHS [facility] Last Admin: 05/16/18 22:27 Dose: Not Given Cyclobenzaprine HCl (Cyclobenzaprine Hcl) 5 mg PO TID PRN PRN Reason: ANXIETY Heparin Sodium (Beef Lung) (Heparin 500 Unit/5 Ml (100/Ml)) 500 unit IV UD PRN PRN Reason: HEPARIN FLUSH Heparin Sodium (Porcine) (Heparin Na) 5,000 unit SC Q8 [facility] Last Admin: 05/17/18 13:53 Dose: 5,000 unit Sodium Bicarbonate 150 meq/ (Dextrose) 1,150 mls @ 100 mls/hr IV .[id number] [facility] Stop: 05/18/18 00:31 Last Admin: 05/17/18 12:57 Dose: 100 mls/hr Thiamine HCl 100 mg/ Sodium (Chloride) 51 mls @ 200 mls/hr IV DAILY [facility] Last Admin: 05/17/18 13:11 Dose: 200 mls/hr Norepinephrine Bitartrate 8 mg (/ Dextrose) 258 mls @ 9.68 mls/hr IV .[id number] [facility] Last Admin: 05/17/18 13:38 Dose: 9.68 mls/hr Vancomycin IV Pharmacy to Dose (1 ea/ Sodium Chloride) 500 mls @ 250 mls/hr IV X1 PRN; Protocol PRN Reason: Rx to Dose Potassium Phosphate 40 mm/ (Sodium Chloride) 513.3333 mls @ 62.5 mls/hr IV X1 ONE Stop: 05/17/18 22:12 Meropenem 500 mg/ Sodium (Chloride) 60 mls @ 100 mls/hr IV Q8 [facility] Last Admin: 05/17/18 13:44 Dose: 100 mls/hr Vancomycin HCl () 500 mg in 100 mls @ 100 mls/hr IV Q12H [facility] Lorazepam (Ativan) 1 mg PO Q4H PRN PRN PRN Reason: ANXIETY Magnesium Hydroxide (Milk Of Magnesia) 30 ml PO DAILY PRN PRN Reason: Constipation Mirtazapine (Remeron) 7.5 mg PO QHS PRN PRN Reason: SLEEP Ondansetron HCl (Zofran) 8 mg PO Q8H PRN PRN PRN Reason: NAUSEA Ondansetron HCl (Zofran) 4 mg IV Q6H PRN PRN PRN Reason: NAUSEA/VOMITING Oxycodone HCl (Oxyir) 5 mg PO Q6H PRN PRN PRN Reason: PAIN Sodium Chloride () 10 ml IV UD PRN PRN Reason: VAD FLUSH Last Admin: 05/17/18 07:02 Dose: 10 ml Sodium Chloride () 10 ml IV UD PRN PRN Reason: VAD FLUSH . Code Visit Inpatient E&M: 10783 Subs Hosp L3
[2018-05-17 11:25] LABS: Bedside Glucose 105 mg/dL (70-110)
[2018-05-17 12:16] LABS: Base Excess -12 mmol/L (-2 to +2); Bicarbonate 13.7 mmol/L (22-26); Blood Gas Specimen Type ART; O2 Delivery Device Nasal Can; PO2 123 mmHG (75-100); SITE R Brachial; SO2 99 % (95-99); Time Given 1207; Total Carbon Dioxide 14 mmol/L; pCO2 24.1 mmHg (35-45); pH 7.36 (7.35-7.45)
--- NOTE | 2018-05-17 12:21 | RAD_ITS ---
STUDY: X-RAY CHEST REASON FOR EXAM: Female, 52 years old. Fever. TECHNIQUE: Single AP portable upright view of the chest. COMPARISON: Portable AP upright chest x-ray May 16, 2018. FINDINGS: Right chest wall MediPort again noted. The right perihilar stranding density as well as small irregular interstitial densities in the periphery of the right upper lobe are unchanged. Faint nodular density projecting on the left base between the posterolateral left eighth and ninth ribs is likely a summation artifact. There is no demonstrated pleural abnormality. Normal size heart. Normal mediastinum and dyan. Normal visualized pulmonary arteries. Normal visualized aortic arch and descending thoracic aorta. Normal visualized thoracic spine. Normal visualized ribs, clavicles, and shoulders. There is no demonstrated abnormality of the visualized soft tissue structures of the upper abdomen. RAD/Chest 1 View (Portable) IMPRESSION: 1. Stable chronic right perihilar stranding. 2. Subcentimeter faint nodular density projecting in left base is likely an artifact. 3. Right chest wall MediPort again noted. Electronically Signed: Ken Real MD at 13:33 EDT , Service support ,
--- NOTE | 2018-05-17 12:27 | NURSING ---
Contacted [facility] Magana and notified of transfer from PCU to ICU
[2018-05-17] MEDS: Lactated Ringers 1,000 ML 999 ML IV (12:30)
[2018-05-17 13:19] LABS: Anion Gap 10 (5-15); BUN 20 mg/dL (7-18); BUN/Creat Ratio 16.4 RATIO (10-20); Calcium,Total 7.2 mg/dL (8.5-10.1); Chloride 109 mmol/L (98-107); Creatinine, Serum 1.22 mg/dL (0.55-1.02); EST Glomerular Filtration Rate 49 mL/min (>60); Est Glom Filt Rate - Afr Amer 59 mL/min (>60); Estimated Creatinine Clearance 46.22 ml/min; Glucose 67 mg/dL (74-106); Potassium 2.2 mmol/L (3.5-5.1); Sodium Level 137 mmol/L (136-145)
[2018-05-17 13:26] LABS: Phosphorus 1.8 mg/dL (2.5-4.9)
[2018-05-17 14:01] LABS: Differential Indicated SCAN CRITERIA MET; Eosinophils% 3.5 % (0-5); Hematocrit 27.9 % (37-47); Hemoglobin 10.4 g/dl (12.0-15.0); Lymphocyte % 23.9 % (19-41); Mean Corp Hgb Conc 37.3 g/gl (32-36); Mean Corpuscular Hgb 27.9 pg (27.0-32.0); Mean Corpuscular Volume 74.8 fL (81-99); Mean Platelet Vol. 8.3 fl (6.2-12.0); Monocyte% 6.1 % (0-10); Neutrophil % 66.5 % (47-70); POSITIVE COUNT YES; POSITIVE DIFFERENTIAL YES; POSITIVE MORPHOLOGY NO; Platelet Count 164 K/mm3 (150-450); RBC Distribution Width CV 16.8 % (11.6-14.6); RBC Distribution Width SD 46.1 fl (35.1-43.9); Red Blood Count 3.73 M/mm3 (4.2-5.4); White Blood Count 2.3 K/mm3 (4.4-11.0)
[2018-05-17 14:02] LABS: Absolute Lymphocyte Count 0.55 X10^3/ul (0.83-4.51); Absolute Neutrophil Count 1.5 X10^3/uL (2.0-7.7); Eosinophil# 0.08 X10^3/uL; Lymphocyte # 0.55 X10^3/ul (4.0); Monocyte# 0.14 X10^3/uL; Neutrophil # 1.53 X10^3/uL (2.7-7.7)
--- NOTE | 2018-05-17 14:06 | PCM.CON.CC ---
Problem List (1) Acute kidney injury Status: Acute (2) Hypokalemia Status: Acute (3) Hyponatremia Status: Acute (4) Nausea vomiting and diarrhea Status: Acute (5) Bipolar affect, depressed Status: Chronic Qualifiers: Current episode severity: moderate Qualified Code(s): F31.32 - Bipolar disorder, current episode depressed, moderate (6) Pulmonary embolism Status: Acute (7) Rotator cuff syndrome Status: Chronic (8) Small cell lung cancer Status: Acute (9) Regional lymph node metastasis present Status: Acute (10) COPD (chronic obstructive pulmonary disease) Status: Chronic Qualifiers: COPD type: chronic bronchitis Chronic bronchitis type: simple Qualified Code(s): J41.0 - Simple chronic bronchitis; J41.0 - Simple chronic bronchitis; J41.0 - Simple chronic bronchitis; J41.0 - Simple chronic bronchitis (11) Left atrial thrombus Status: Chronic (12) PTSD (post-traumatic stress disorder) Status: Chronic Reason for Consult Date of Consultation: 05/17/18 Reason for Consultation: Severe Sepsis History of Present Illness: The patient is a 52 year old F, with past medical history listed below, who presented to [facility] on May 16, 2018 secondary to nausea, vomiting and diarrhea for 10 days. Patient is well-known to me from the outpatient office where I follow her for her small cell lung cancer and COPD. Patient is currently being treated at the [facility] with immunotherapy. Patient recently had a recurrence and had to be reinitiated on therapy. Upon being evaluated in the field, there was some ST elevation noted. Patient was evaluated cardiology in the emergency department, given aspirin rectally, Plavix and Lovenox. Patient was not taken to the [employer] Service [employer]. Patient was found to have severely low potassium and admitted to the floor for further evaluation. While in the PCU, patient developed worsening hypotension and mental status. Patient was transferred to the intensive care unit for more aggressive electrolyte repletion and for possible pressor therapy. On arrival to the intensive care unit, patient was found to be listless and did not know who I was despite the fact I have been seeing her for over 2 years. Is unable to provide any history at this time. Patient's POA is no longer at the bedside. Patient was noted to be hypotensive. Patient did receive a liter and a half of crystalloid bolus with some improvement in blood pressure. Repeat laboratory data showed continued hypokalemia. Repletion has been ordered. ABG showed normalization of acid base status, but patient does have a respiratory alkalosis compensating for a metabolic acidosis. Patient has been having continued watery diarrhea throughout the hospitalization is continued in the intensive care unit. 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) Acid reflux disease (Chronic) Rotator cuff syndrome (Chronic) Adrenal nodule (Chronic) COPD (chronic obstructive pulmonary disease) (Chronic) Poor compliance with medication (Chronic) Left atrial thrombus (Chronic) Tobacco dependence (Chronic) PTSD (post-traumatic stress disorder) (Chronic) 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 [place] Spasm of back muscles (Chronic) Manic depression (Chronic) Dyspnea (Chronic) 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) Chest pain (Chronic) Medical History: Medical History (Last Reviewed 05/16/18 @ 20:50 by Sohna Waddell MD) Pulmonary embolism (Acute) I26.99 Tobacco abuse (Chronic) Z72.0 Muscle spasm (Chronic) M62.838 Periodontal disease (Acute) K05.6 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) Z79.01 Nausea & vomiting (Acute) R11.2 Acid reflux disease (Chronic) K21.9 Headache (Acute) R51 Rotator cuff syndrome (Chronic) M75.100 Adrenal nodule (Chronic) E27.9 Encounter for adjustment or management of vascular access device (Acute) Z45.2 Small cell lung cancer (Acute) C34.90 Regional lymph node metastasis present (Acute) C77.9 Lung metastasis (Acute) C78.00 COPD (chronic obstructive pulmonary disease) (Chronic) J44.9 Poor compliance with medication (Chronic) Z91.14 Left atrial thrombus (Chronic) [id number] Tobacco dependence (Chronic) F17.200 PTSD (post-traumatic stress disorder) (Chronic) F43.10 Thrombus of pulmonary vein (Chronic) I26.99 R pulmonary vein as it enters the LA Spasm of back muscles (Chronic) M62.830 Manic depression (Chronic) F31.9 Dyspnea (Chronic) R06.00 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) I82.210 Chest pain (Chronic) R07.9 Allergies acetaminophen [From Sudafed PE Severe Cold] Allergy (Verified 05/16/18 17:58) / dextromethorphan HBr [From Comtrex Cold-Cough] Allergy (Verified 05/16/18 17:58) Anaphylaxis diphenhydramine [From Sudafed PE Severe Cold] Allergy (Verified 05/16/18 17:58) / phenylephrine [From Sudafed PE Severe Cold] Allergy (Verified 05/16/18 17:58) / phenylephrine HCl [From Comtrex Cold-Cough] Allergy (Verified 05/16/18 17:58) Anaphylaxis Home Medications: Ambulatory Orders Medication Instructions Recorded Mirtazapine [Remeron] 7.5 mg PO QHS PRN 17 Cyclobenzaprine HCl 5 mg PO TID PRN 05/16/18 Diazepam 10 mg PO BID PRN 05/16/18 Ondansetron [Zofran] 8 mg PO Q8H PRN PRN 05/16/18 Oxycodone [Oxyir] 5 mg PO Q6H PRN PRN 05/16/18 Surgical History: Surgical History (Last Reviewed 05/16/18 @ 20:50 by Sohan Waddell MD) History of lung biopsy Z98.890 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 History: No pertinent FRONT LINE LEADER history Smoking Status: Current every day smoker Tobacco Use: Cigarettes Alcohol: None - *Family History Maternal Family History: Family History (Last Reviewed 05/17/18 @ 03:08 by Sohan Waddell MD) Mother Diabetes Hypertension Cancer Father Cancer Headache Sister Cancer Brother Cancer History Items: Diabetes, Hypertension, - - mother of lung CA Paternal Family History: Family History (Last Reviewed 05/17/18 @ 03:08 by Sohan Waddell MD) Mother Diabetes Hypertension Cancer Father Cancer Headache Sister Cancer Brother Cancer History Items: - - father had pancreatitic CA Sibling Family History: Family History (Last Reviewed 05/17/18 @ 03:08 by Sohan Waddell MD) Mother Diabetes Hypertension Cancer Father Cancer Headache Sister Cancer Brother Cancer History Items: Cancer - 1 sister of lymphoma and a brother with pancreatic, - - no one in her family has been diagnosed with BPD Review of Systems Comment: See HPI Patient Problems: Active and Suspected Problems (Last Reviewed 05/16/18 @ 20:50 by Sohan Waddell MD) Acute kidney injury (Acute) Hypokalemia (Acute) Abnormal EKG (Acute) Hyponatremia (Acute) Nausea vomiting and diarrhea (Acute) Small cell lung cancer (Acute) Objective: Chest x-rays were personally reviewed and I agree with the formal interpretation. She has had slightly increased infiltrates bilaterally. Echocardiogram shows an EF of 60% with no focal wall motion abnormality. This was a difficult exam, so RV systolic pressure was not adequately visualized. Inferior vena cava did collapse with sniff. - Physical Exam General: Lethargic, Non-Cooperative, - - Thin build. Appears older than stated age. HEENT: Atraumatic, PERRLA, EOMI, Normocephalic, - - Slight scleral injection without icterus Oral: No Gingival or Mucosal Lesions/ Ulcerations, Dry Mucosa Neck: Supple, No JVD, No Nodes, Trachea Midline Lungs: No rhonchi, No wheeze, No rales, Diminished, - - Symmetric expansion. No dullness to percussion. Cardiovascular: Normal S1, Normal S2, No murmurs, No rub noted, No Gallop, Tachycardic Abdomen: Bowel Sounds Present, Soft, Non Tender, Non-Distended Extremities: No cyanosis, No edema, Clubbing Skin: - - Desquamation on the forehead noted. Musculoskeletal: No Tenderness to Palpation of Joints or Extremities, Muscle Wasting Lymphatic: No Cervical, Supraclavicular, or Inguinal Adenopathy Neurological: Cranial nerves II-XII grossly intact, Neuro grossly intact Psych/Mental Status: Flat Affect, Restless Vital Signs Temp Pulse Resp BP Pulse Ox 37.9 C H 96 25 H 70/53 L 100 05/17/18 13:42 05/17/18 13:42 05/17/18 13:42 05/17/18 13:42 05/17/18 13:42 Oxygen Flow Rate (L/min) 2 Oxygen Delivery Method Nasal Cannula Weight: 54.9 kg Body Mass Index (BMI) 19.5 Intake and Output for Last 24 Hours 05/15/18 05/16/18 05/17/18 23:59 23:59 23:59 Intake Total 512 / 512 433 / 433 Output Total 300 / 300 Balance 512 / 512 133 / 133 Microbiology Past 72 Hours 05/16/18 21:30 Enteric Bacteriology - Final Stool 05/16/18 21:30 C. difficile DNA Amplification - Final Stool Laboratory Tests Past 24 Hrs 05/16/18 05/16/18 05/16/18 17:35 17:35 17:35 WBC 4.0 L RBC 5.06 Hgb 13.0 Hct 38.6 MCV 76.3 L MCH 25.7 L MCHC 33.7 RDW 16.8 H RDW Differential 46.6 H Plt Count 258 MPV 9.0 Immature Gran % (Auto) 0.300 Neut % (Auto) 61.1 Lymph % (Auto) 25.6 [place] % (Auto) 8.9 Eos % (Auto) 3.8 Baso % (Auto) 0.3 Absolute Neuts (auto) 2.4 Absolute Lymphs (auto) 1.01 Total Counted Not Reportable PT 13.2 INR 1.0 APTT 157.3 H* Specimen Type Sample Site pH Bicarbonate Actual POC Total CO2 Base Excess O2 Saturation ABG pCO2 ABG pO2 Nicolas Test O2 Delivery Device Liter Flow Blood Gas Notified Whom Blood Gas Notified Time Sodium 126 L Potassium 2.0 L* Chloride 96 L Carbon Dioxide 9.0 L* Anion Gap 21 H BUN 42 H Creatinine 2.14 H Estim Creat Clear Calc 25.92 Est GFR (MDRD) Af Amer 31 L Est GFR (MDRD) Non-Af 26 L BUN/Creatinine Ratio 19.6 Glucose 67 L Lactic Acid Calcium 8.3 L Phosphorus Magnesium Total Bilirubin 0.40 AST 53 H ALT 37 Alkaline Phosphatase 110 Troponin I < 0.015 Total Protein 7.2 Albumin 3.1 L Globulin 4.1 Albumin/Globulin Ratio 0.8 L Triglycerides Cholesterol LDL Cholesterol VLDL Cholesterol HDL Cholesterol Urine Color Urine Clarity Urine pH Ur Specific [place] Urine Protein Urine Glucose (UA) Urine Ketones Urine Occult Blood Urine Nitrite Urine Bilirubin Urine Urobilinogen Ur Leukocyte Esterase Urine RBC Urine WBC Ur Squamous Epith Cells Amorphous Sediment Urine Bacteria Urine Mucus Ur Random Sodium Urine Creatinine Urine Potassium Urine Chloride 05/16/18 05/16/18 05/16/18 17:35 17:35 18:00 WBC RBC Hgb Hct MCV MCH MCHC RDW RDW Differential Plt Count MPV Immature Gran % (Auto) Neut % (Auto) Lymph % (Auto) [place] % (Auto) Eos % (Auto) Baso % (Auto) Absolute Neuts (auto) Absolute Lymphs (auto) Total Counted PT INR APTT Specimen Type Sample Site pH Bicarbonate Actual POC Total CO2 Base Excess O2 Saturation ABG pCO2 ABG pO2 Nicolas Test O2 Delivery Device Liter Flow Blood Gas Notified Whom Blood Gas Notified Time Sodium Potassium Chloride Carbon Dioxide Anion Gap BUN Creatinine Estim Creat Clear Calc Est GFR (MDRD) Af Amer Est GFR (MDRD) Non-Af BUN/Creatinine Ratio Glucose Lactic Acid 0.9 Calcium Phosphorus Magnesium 2.8 H Total Bilirubin AST ALT Alkaline Phosphatase Troponin I Total Protein Albumin Globulin Albumin/Globulin Ratio Triglycerides Cholesterol LDL Cholesterol VLDL Cholesterol HDL Cholesterol Urine Color Yellow Urine Clarity Sl. Cloudy Urine pH 7.0 Ur Specific [place] 1.010 Urine Protein 100 H Urine Glucose (UA) Normal Urine Ketones 50 H Urine Occult Blood 10 H Urine Nitrite Negative Urine Bilirubin Negative Urine Urobilinogen Normal Ur Leukocyte Esterase 25 H Urine RBC 0-5 SEEN Urine WBC 0-5 SEEN Ur Squamous Epith Cells 0-5 SEEN Amorphous Sediment 1+ PHOS Urine Bacteria 0 SEEN Urine Mucus 0 SEEN Ur Random Sodium Urine Creatinine Urine Potassium Urine Chloride 05/16/18 05/16/18 05/17/18 21:30 23:40 00:15 WBC RBC Hgb Hct MCV MCH MCHC RDW RDW Differential Plt Count MPV Immature Gran % (Auto) Neut % (Auto) Lymph % (Auto) [place] % (Auto) Eos % (Auto) Baso % (Auto) Absolute Neuts (auto) Absolute Lymphs (auto) Total Counted PT INR APTT Specimen Type ART Sample Site R Radial pH 7.19 L* Bicarbonate Actual 7.7 L POC Total CO2 8 Base Excess -21 L O2 Saturation 99 ABG pCO2 20.2 L ABG pO2 171 H Nicolas Test POS O2 Delivery Device Nasal Can Liter Flow 2.0 Blood Gas Notified Whom [facility] Blood Gas Notified Time Sodium Potassium Chloride Carbon Dioxide Anion Gap BUN Creatinine Estim Creat Clear Calc Est GFR (MDRD) Af Amer Est GFR (MDRD) Non-Af BUN/Creatinine Ratio Glucose Lactic Acid Calcium Phosphorus Magnesium Total Bilirubin AST ALT Alkaline Phosphatase Troponin I < 0.015 < 0.015 Total Protein Albumin Globulin Albumin/Globulin Ratio Triglycerides 159 Cholesterol 157 LDL Cholesterol 102 VLDL Cholesterol 32 HDL Cholesterol 23 L Urine Color Urine Clarity Urine pH Ur Specific [place] Urine Protein Urine Glucose (UA) Urine Ketones Urine Occult Blood Urine Nitrite Urine Bilirubin Urine Urobilinogen Ur Leukocyte Esterase Urine RBC Urine WBC Ur Squamous Epith Cells Amorphous Sediment Urine Bacteria Urine Mucus Ur Random Sodium Urine Creatinine Urine Potassium Urine Chloride 05/17/18 05/17/18 05/17/18 03:00 03:00 03:00 WBC 2.7 L RBC 4.16 L Hgb 11.6 L Hct 31.3 L MCV 75.2 L MCH 27.9 MCHC 37.1 H RDW 16.7 H RDW Differential 45.7 H Plt Count 190 MPV 8.4 Immature Gran % (Auto) Neut % (Auto) Lymph % (Auto) [place] % (Auto) Eos % (Auto) Baso % (Auto) Absolute Neuts (auto) Absolute Lymphs (auto) Total Counted PT INR APTT Specimen Type Sample Site pH Bicarbonate Actual POC Total CO2 Base Excess O2 Saturation ABG pCO2 ABG pO2 Nicolas Test O2 Delivery Device Liter Flow Blood Gas Notified Whom Blood Gas Notified Time Sodium 132 L Potassium 2.7 L* Chloride 106 Carbon Dioxide 16.0 L Anion Gap 10 BUN 31 H Creatinine 1.51 H Estim Creat Clear Calc 37.55 Est GFR (MDRD) Af Amer 46 L Est GFR (MDRD) Non-Af 38 L BUN/Creatinine Ratio 20.5 H Glucose 184 H Lactic Acid Calcium 7.5 L Phosphorus Magnesium Total Bilirubin AST ALT Alkaline Phosphatase Troponin I < 0.015 Total Protein Albumin Globulin Albumin/Globulin Ratio Triglycerides Cholesterol LDL Cholesterol VLDL Cholesterol HDL Cholesterol Urine Color Urine Clarity Urine pH Ur Specific [place] Urine Protein Urine Glucose (UA) Urine Ketones Urine Occult Blood Urine Nitrite Urine Bilirubin Urine Urobilinogen Ur Leukocyte Esterase Urine RBC Urine WBC Ur Squamous Epith Cells Amorphous Sediment Urine Bacteria Urine Mucus Ur Random Sodium Urine Creatinine Urine Potassium Urine Chloride 05/17/18 05/17/18 05/17/18 03:00 05:00 09:30 WBC RBC Hgb Hct MCV MCH MCHC RDW RDW Differential Plt Count MPV Immature Gran % (Auto) Neut % (Auto) Lymph % (Auto) [place] % (Auto) Eos % (Auto) Baso % (Auto) Absolute Neuts (auto) Absolute Lymphs (auto) Total Counted PT INR APTT 45.8 H Specimen Type Sample Site pH Bicarbonate Actual POC Total CO2 Base Excess O2 Saturation ABG pCO2 ABG pO2 Nicolas Test O2 Delivery Device Liter Flow Blood Gas Notified Whom Blood Gas Notified Time Sodium Potassium Chloride Carbon Dioxide Anion Gap BUN Creatinine Estim Creat Clear Calc Est GFR (MDRD) Af Amer Est GFR (MDRD) Non-Af BUN/Creatinine Ratio Glucose Lactic Acid Calcium Phosphorus 0.6 L* Magnesium Total Bilirubin AST ALT Alkaline Phosphatase Troponin I Total Protein Albumin Globulin Albumin/Globulin Ratio Triglycerides Cholesterol LDL Cholesterol VLDL Cholesterol HDL Cholesterol Urine Color Urine Clarity Urine pH Ur Specific [place] Urine Protein Urine Glucose (UA) Urine Ketones Urine Occult Blood Urine Nitrite Urine Bilirubin Urine Urobilinogen Ur Leukocyte Esterase Urine RBC Urine WBC Ur Squamous Epith Cells Amorphous Sediment Urine Bacteria Urine Mucus Ur Random Sodium Urine Creatinine 25.90 Urine Potassium Urine Chloride 05/17/18 05/17/18 05/17/18 09:30 09:30 09:30 WBC RBC Hgb Hct MCV MCH MCHC RDW RDW Differential Plt Count MPV Immature Gran % (Auto) Neut % (Auto) Lymph % (Auto) [place] % (Auto) Eos % (Auto) Baso % (Auto) Absolute Neuts (auto) Absolute Lymphs (auto) Total Counted PT INR APTT Specimen Type Sample Site pH Bicarbonate Actual POC Total CO2 Base Excess O2 Saturation ABG pCO2 ABG pO2 Nicolas Test O2 Delivery Device Liter Flow Blood Gas Notified Whom Blood Gas Notified Time Sodium Potassium Chloride Carbon Dioxide Anion Gap BUN Creatinine Estim Creat Clear Calc Est GFR (MDRD) Af Amer Est GFR (MDRD) Non-Af BUN/Creatinine Ratio Glucose Lactic Acid Calcium Phosphorus Magnesium Total Bilirubin AST ALT Alkaline Phosphatase Troponin I Total Protein Albumin Globulin Albumin/Globulin Ratio Triglycerides Cholesterol LDL Cholesterol VLDL Cholesterol HDL Cholesterol Urine Color Urine Clarity Urine pH Ur Specific [place] Urine Protein Urine Glucose (UA) Urine Ketones Urine Occult Blood Urine Nitrite Urine Bilirubin Urine Urobilinogen Ur Leukocyte Esterase Urine RBC Urine WBC Ur Squamous Epith Cells Amorphous Sediment Urine Bacteria Urine Mucus Ur Random Sodium 69 Urine Creatinine Urine Potassium 28.0 Urine Chloride 93 05/17/18 05/17/18 05/17/18 12:09 12:45 12:45 WBC Pending RBC Pending Hgb Pending Hct Pending MCV Pending MCH Pending MCHC Pending RDW Pending RDW Differential Pending Plt Count Pending MPV Pending Immature Gran % (Auto) Pending Neut % (Auto) Pending Lymph % (Auto) Pending [place] % (Auto) Pending Eos % (Auto) Pending Baso % (Auto) Pending Absolute Neuts (auto) Pending Absolute Lymphs (auto) Pending Total Counted Not Reportable PT INR APTT Specimen Type ART Sample Site R Brachial pH 7.36 Bicarbonate Actual 13.7 L POC Total CO2 14 Base Excess -12 L O2 Saturation 99 ABG pCO2 24.1 L ABG pO2 123 H Nicolas Test O2 Delivery Device Nasal Can Liter Flow 2.0 Blood Gas Notified Whom ICU MD Blood Gas Notified Time 1207 Sodium Potassium Chloride Carbon Dioxide Anion Gap BUN Creatinine Estim Creat Clear Calc Est GFR (MDRD) Af Amer Est GFR (MDRD) Non-Af BUN/Creatinine Ratio Glucose Lactic Acid Calcium Phosphorus 1.8 L Magnesium Total Bilirubin AST ALT Alkaline Phosphatase Troponin I Total Protein Albumin Globulin Albumin/Globulin Ratio Triglycerides Cholesterol LDL Cholesterol VLDL Cholesterol HDL Cholesterol Urine Color Urine Clarity Urine pH Ur Specific [place] Urine Protein Urine Glucose (UA) Urine Ketones Urine Occult Blood Urine Nitrite Urine Bilirubin Urine Urobilinogen Ur Leukocyte Esterase Urine RBC Urine WBC Ur Squamous Epith Cells Amorphous Sediment Urine Bacteria Urine Mucus Ur Random Sodium Urine Creatinine Urine Potassium Urine Chloride 05/17/18 12:45 WBC RBC Hgb Hct MCV MCH MCHC RDW RDW Differential Plt Count MPV Immature Gran % (Auto) Neut % (Auto) Lymph % (Auto) [place] % (Auto) Eos % (Auto) Baso % (Auto) Absolute Neuts (auto) Absolute Lymphs (auto) Total Counted PT INR APTT Specimen Type Sample Site pH Bicarbonate Actual POC Total CO2 Base Excess O2 Saturation ABG pCO2 ABG pO2 Nicolas Test O2 Delivery Device Liter Flow Blood Gas Notified Whom Blood Gas Notified Time Sodium 137 Potassium 2.2 L* Chloride 109 H Carbon Dioxide 18.0 L Anion Gap 10 BUN 20 H Creatinine 1.22 H Estim Creat Clear Calc 46.22 Est GFR (MDRD) Af Amer 59 L Est GFR (MDRD) Non-Af 49 L BUN/Creatinine Ratio 16.4 Glucose 67 L Lactic Acid Calcium 7.2 L Phosphorus Magnesium Total Bilirubin AST ALT Alkaline Phosphatase Troponin I Total Protein Albumin Globulin Albumin/Globulin Ratio Triglycerides Cholesterol LDL Cholesterol VLDL Cholesterol HDL Cholesterol Urine Color Urine Clarity Urine pH Ur Specific [place] Urine Protein Urine Glucose (UA) Urine Ketones Urine Occult Blood Urine Nitrite Urine Bilirubin Urine Urobilinogen Ur Leukocyte Esterase Urine RBC Urine WBC Ur Squamous Epith Cells Amorphous Sediment Urine Bacteria Urine Mucus Ur Random Sodium Urine Creatinine Urine Potassium Urine Chloride POC Glucose 05/17/18 05/17/18 05/17/18 11:14 07:11 02:55 POC Glucose 105 112 H 202 H 05/17/18 05/16/18 05/16/18 00:44 23:42 23:01 POC Glucose 243 H 182 H 225 H 05/16/18 22:07 POC Glucose 52 L Clinical Impression(s) from Imaging Studies Chest X-Ray 05/16/18 17:35 IMPRESSION: Stable x-ray examination of the chest since CT chest/thorax November 17, 2017, as described. Electronically Signed: Ken Real MD at 17:56 EDT , Service support , Chest X-Ray 05/17/18 12:21 IMPRESSION: 1. Stable chronic right perihilar stranding. 2. Subcentimeter faint nodular density projecting in left base is likely an artifact. 3. Right chest wall [employer] again noted. Electronically Signed: Ken Real MD at 13:33 EDT , Service support , Assessment/Plan Active and Suspected Problems (Last Reviewed 05/16/18 @ 20:50 by Sohan Waddell MD) Acute kidney injury (Acute) Hypokalemia (Acute) Abnormal EKG (Acute) Hyponatremia (Acute) Nausea vomiting and diarrhea (Acute) Small cell lung cancer (Acute) RECOMMENDATIONS: 1. Initiate empiric antibiotics, guevara culture 2. Initiate pressors if not fluid responsive 3. Aggressive potassium repletion 4. Appreciate oncology input 5. Obtain chest x-ray IMPRESSIONS: 1. Septic shock of unclear etiology Patient is currently immunosuppressed secondary to chemotherapy. Patient did develop fever and hypotension. Patient did not respond to fluid boluses. Levophed has been initiated. Patient will have guevara cultures to evaluate for etiology. Patient will also be started initially on healthcare associated antibiotics. 2. Acute kidney injury secondary to hypovolemia secondary to gastroenteritis Clinical suspicion for prerenal etiology secondary to volume loss from gastroenteritis. Patient may have an element of sloughing secondary to immunotherapy. No indication for renal replacement therapy at this time. Hima difficile and enteric pathogens are negative. Continue with supportive care. 3. Hypokalemia/hypophosphatemia/hyponatremia Patient continues to have very suppressed potassium levels. Patient was significantly acidotic on presentation. Acidosis has been improved, but still very hypokalemic. We will aggressively resuscitate potassium and phosphorus. Continue telemetry monitoring. Patient may require calcium supplementation. Magnesium is elevated. Patient's EKG changes are likely secondary to electrolyte abnormalities, but cardiology is following. Patient is on aspirin and Lipitor. 4. Small cell lung cancer of the right lung Patient currently receiving immunotherapy at [facility]. Oncology is currently following. 5. Severe protein calorie malnutrition/debility/recurrent hypoglycemia/bipolar/minimal tobacco abuse Complicates care, management, recovery and prognosis. Patient's mental status makes feeding difficult at this time. We will continue to monitor. Dietitian has been consulted and will be following. TIME: 33 minutes critical care time spent addressing patient's septic shock, acute kidney injury, electrolyte abnormalities, review of all data and collaboration with care team. (12:30 PM to 2:30 PM) Code Visit 9xxxx: [id number] Critical care first hour
--- NOTE | 2018-05-17 14:14 | CON.PCM_ITS ---
Problem List (1) Acute kidney injury Status: Acute (2) Hypokalemia Status: Acute (3) Hyponatremia Status: Acute (4) Nausea vomiting and diarrhea Status: Acute (5) Bipolar affect, depressed Status: Chronic Qualifiers: Current episode severity: moderate Qualified Code(s): F31.32 - Bipolar disorder, current episode depressed, moderate (6) Pulmonary embolism Status: Acute (7) Rotator cuff syndrome Status: Chronic (8) Small cell lung cancer Status: Acute (9) Regional lymph node metastasis present Status: Acute (10) COPD (chronic obstructive pulmonary disease) Status: Chronic Qualifiers: COPD type: chronic bronchitis Chronic bronchitis type: simple Qualified Code(s): J41.0 - Simple chronic bronchitis; J41.0 - Simple chronic bronchitis; J41.0 - Simple chronic bronchitis; J41.0 - Simple chronic bronchitis (11) Left atrial thrombus Status: Chronic (12) PTSD (post-traumatic stress disorder) Status: Chronic Reason for Consult Date of Consultation: 05/17/18 Reason for Consultation: Severe Sepsis History of Present Illness: The patient is a 52 year old F, with past medical history listed below, who presented to [facility] on May 16, 2018 secondary to nausea, vomiting and diarrhea for 10 days. Patient is well-known to me from the outpatient office where I follow her for her small cell lung cancer and COPD. Patient is currently being treated at the [facility] with immunotherapy. Patient recently had a recurrence and had to be reinitiated on therapy. Upon being evaluated in the field, there was some ST elevation noted. Patient was evaluated cardiology in the emergency department, given aspirin rectally, Plavix and Lovenox. Patient was not taken to the [facility]. Patient was found to have severely low potassium and admitted to the floor for further evaluation. While in the PCU, patient developed worsening hypotension and mental status. Patient was transferred to the intensive care unit for more aggressive electrolyte repletion and for possible pressor therapy. On arrival to the intensive care unit, patient was found to be listless and did not know who I was despite the fact I have been seeing her for over 2 years. Is unable to provide any history at this time. Patient's POA is no longer at the bedside. Patient was noted to be hypotensive. Patient did receive a liter and a half of crystalloid bolus with some improvement in blood pressure. Repeat laboratory data showed continued hypokalemia. Repletion has been ordered. ABG showed normalization of acid base status, but patient does have a respiratory alkalosis compensating for a metabolic acidosis. Patient has been having continued watery diarrhea throughout the hospitalization is continued in the intensive care unit. 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) Acid reflux disease (Chronic) Rotator cuff syndrome (Chronic) Adrenal nodule (Chronic) COPD (chronic obstructive pulmonary disease) (Chronic) Poor compliance with medication (Chronic) Left atrial thrombus (Chronic) Tobacco dependence (Chronic) PTSD (post-traumatic stress disorder) (Chronic) 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 LA Spasm of back muscles (Chronic) Manic depression (Chronic) Dyspnea (Chronic) 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) Chest pain (Chronic) Medical History: Medical History (Last Reviewed 05/16/18 @ 20:50 by Sohan Waddell MD) Pulmonary embolism (Acute) I26.99 Tobacco abuse (Chronic) Z72.0 Muscle spasm (Chronic) M62.838 Periodontal disease (Acute) K05.6 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 (Chronic) Z79.01 Nausea & vomiting (Acute) R11.2 Acid reflux disease (Chronic) K21.9 Headache (Acute) R51 Rotator cuff syndrome (Chronic) M75.100 Adrenal nodule (Chronic) E27.9 Encounter for adjustment or management of vascular access device (Acute) Z45.2 Small cell lung cancer (Acute) C34.90 Regional lymph node metastasis present (Acute) C77.9 Lung metastasis (Acute) C78.00 COPD (chronic obstructive pulmonary disease) (Chronic) J44.9 Poor compliance with medication (Chronic) Z91.14 Left atrial thrombus (Chronic) [id number] Tobacco dependence (Chronic) F17.200 PTSD (post-traumatic stress disorder) (Chronic) F43.10 Thrombus of pulmonary vein (Chronic) I26.99 R pulmonary vein as it enters the LA Spasm of back muscles (Chronic) M62.830 Manic depression (Chronic) F31.9 Dyspnea (Chronic) R06.00 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) I82.210 Chest pain (Chronic) R07.9 Allergies acetaminophen [From Sudafed PE Severe Cold] Allergy (Verified 05/16/18 17:58) / dextromethorphan HBr [From Comtrex Cold-Cough] Allergy (Verified 05/16/18 17:58) Anaphylaxis diphenhydramine [From Sudafed PE Severe Cold] Allergy (Verified 05/16/18 17:58) / phenylephrine [From Sudafed PE Severe Cold] Allergy (Verified 05/16/18 17:58) / phenylephrine HCl [From Comtrex Cold-Cough] Allergy (Verified 05/16/18 17:58) Anaphylaxis Home Medications: Ambulatory Orders Medication Instructions Recorded Mirtazapine [Remeron] 7.5 mg PO QHS PRN 17 Cyclobenzaprine HCl 5 mg PO TID PRN 05/16/18 Diazepam 10 mg PO BID PRN 05/16/18 Ondansetron [Zofran] 8 mg PO Q8H PRN PRN 05/16/18 Oxycodone [Oxyir] 5 mg PO Q6H PRN PRN 05/16/18 Surgical History: Surgical History (Last Reviewed 05/16/18 @ 20:50 by Sohan Waddell MD) History of lung biopsy Z98.890 [facility] 09/29/17, Surgical History: - - 2 C sections and surgery on her foot Psychiatric History: Bipolar, Post traumatic stress HOSPITAL PHARMACY DIRECTOR History: No pertinent HOSPITAL PHARMACY DIRECTOR history Smoking Status: Current every day smoker Tobacco Use: Cigarettes Alcohol: None - *Family History Maternal Family History: Family History (Last Reviewed 05/17/18 @ 03:08 by Sohan Waddell MD) Mother Diabetes Hypertension Cancer Father Cancer Headache Sister Cancer Brother Cancer History Items: Diabetes, Hypertension, - - mother of lung CA Paternal Family History: Family History (Last Reviewed 05/17/18 @ 03:08 by Sohan Waddell MD) Mother Diabetes Hypertension Cancer Father Cancer Headache Sister Cancer Brother Cancer History Items: - - father had pancreatitic CA Sibling Family History: Family History (Last Reviewed 05/17/18 @ 03:08 by Sohan Waddell MD) Mother Diabetes Hypertension Cancer Father Cancer Headache Sister Cancer Brother Cancer History Items: Cancer - 1 sister of lymphoma and a brother with pancreatic, - - no one in her family has been diagnosed with BPD Review of Systems Comment: See HPI Patient Problems: Active and Suspected Problems (Last Reviewed 05/16/18 @ 20:50 by Sohan Waddell MD) Acute kidney injury (Acute) Hypokalemia (Acute) Abnormal EKG (Acute) Hyponatremia (Acute) Nausea vomiting and diarrhea (Acute) Small cell lung cancer (Acute) Objective: Chest x-rays were personally reviewed and I agree with the formal interpretation. She has had slightly increased infiltrates bilaterally. Echocardiogram shows an EF of 60% with no focal wall motion abnormality. This was a difficult exam, so RV systolic pressure was not adequately visualized. Inferior vena cava did collapse with sniff. - Physical Exam General: Lethargic, Non-Cooperative, - - Thin build. Appears older than stated age. HEENT: Atraumatic, PERRLA, EOMI, Normocephalic, - - Slight scleral injection without icterus Oral: No Gingival or Mucosal Lesions/ Ulcerations, Dry Mucosa Neck: Supple, No JVD, No Nodes, Trachea Midline Lungs: No rhonchi, No wheeze, No rales, Diminished, - - Symmetric expansion. No dullness to percussion. Cardiovascular: Normal S1, Normal S2, No murmurs, No rub noted, No Gallop, Tachycardic Abdomen: Bowel Sounds Present, Soft, Non Tender, Non-Distended Extremities: No cyanosis, No edema, Clubbing Skin: - - Desquamation on the forehead noted. Musculoskeletal: No Tenderness to Palpation of Joints or Extremities, Muscle Wasting Lymphatic: No Cervical, Supraclavicular, or Inguinal Adenopathy Neurological: Cranial nerves II-XII grossly intact, Neuro grossly intact Psych/Mental Status: Flat Affect, Restless Vital Signs Temp Pulse Resp BP Pulse Ox 37.9 C H 96 25 H 70/53 L 100 05/17/18 13:42 05/17/18 13:42 05/17/18 13:42 05/17/18 13:42 05/17/18 13:42 Oxygen Flow Rate (L/min) 2 Oxygen Delivery Method Nasal Cannula Weight: 54.9 kg Body Mass Index (BMI) 19.5 Intake and Output for Last 24 Hours 05/15/18 05/16/18 05/17/18 23:59 23:59 23:59 Intake Total 512 / 512 433 / 433 Output Total 300 / 300 Balance 512 / 512 133 / 133 Microbiology Past 72 Hours 05/16/18 21:30 Enteric Bacteriology - Final Stool 05/16/18 21:30 C. difficile DNA Amplification - Final Stool Laboratory Tests Past 24 Hrs 05/16/18 05/16/18 05/16/18 17:35 17:35 17:35 WBC 4.0 L RBC 5.06 Hgb 13.0 Hct 38.6 MCV 76.3 L MCH 25.7 L MCHC 33.7 RDW 16.8 H RDW Differential 46.6 H Plt Count 258 MPV 9.0 Immature Gran % (Auto) 0.300 Neut % (Auto) 61.1 Lymph % (Auto) 25.6 Bowie % (Auto) 8.9 Eos % (Auto) 3.8 Baso % (Auto) 0.3 Absolute Neuts (auto) 2.4 Absolute Lymphs (auto) 1.01 Total Counted Not Reportable PT 13.2 INR 1.0 APTT 157.3 H* Specimen Type Sample Site pH Bicarbonate Actual POC Total CO2 Base Excess O2 Saturation ABG pCO2 ABG pO2 Nicolas Test O2 Delivery Device Liter Flow Blood Gas Notified Whom Blood Gas Notified Time Sodium 126 L Potassium 2.0 L* Chloride 96 L Carbon Dioxide 9.0 L* Anion Gap 21 H BUN 42 H Creatinine 2.14 H Estim Creat Clear Calc 25.92 Est GFR (MDRD) Af Amer 31 L Est GFR (MDRD) Non-Af 26 L BUN/Creatinine Ratio 19.6 Glucose 67 L Lactic Acid Calcium 8.3 L Phosphorus Magnesium Total Bilirubin 0.40 AST 53 H ALT 37 Alkaline Phosphatase 110 Troponin I < 0.015 Total Protein 7.2 Albumin 3.1 L Globulin 4.1 Albumin/Globulin Ratio 0.8 L Triglycerides Cholesterol LDL Cholesterol VLDL Cholesterol HDL Cholesterol Urine Color Urine Clarity Urine pH Ur Specific [place] Urine Protein Urine Glucose (UA) Urine Ketones Urine Occult Blood Urine Nitrite Urine Bilirubin Urine Urobilinogen Ur Leukocyte Esterase Urine RBC Urine WBC Ur Squamous Epith Cells Amorphous Sediment Urine Bacteria Urine Mucus Ur Random Sodium Urine Creatinine Urine Potassium Urine Chloride 05/16/18 05/16/18 05/16/18 17:35 17:35 18:00 WBC RBC Hgb Hct MCV MCH MCHC RDW RDW Differential Plt Count MPV Immature Gran % (Auto) Neut % (Auto) Lymph % (Auto) Bowie % (Auto) Eos % (Auto) Baso % (Auto) Absolute Neuts (auto) Absolute Lymphs (auto) Total Counted PT INR APTT Specimen Type Sample Site pH Bicarbonate Actual POC Total CO2 Base Excess O2 Saturation ABG pCO2 ABG pO2 Nicolas Test O2 Delivery Device Liter Flow Blood Gas Notified Whom Blood Gas Notified Time Sodium Potassium Chloride Carbon Dioxide Anion Gap BUN Creatinine Estim Creat Clear Calc Est GFR (MDRD) Af Amer Est GFR (MDRD) Non-Af BUN/Creatinine Ratio Glucose Lactic Acid 0.9 Calcium Phosphorus Magnesium 2.8 H Total Bilirubin AST ALT Alkaline Phosphatase Troponin I Total Protein Albumin Globulin Albumin/Globulin Ratio Triglycerides Cholesterol LDL Cholesterol VLDL Cholesterol HDL Cholesterol Urine Color Yellow Urine Clarity Sl. Cloudy Urine pH 7.0 Ur Specific [place] 1.010 Urine Protein 100 H Urine Glucose (UA) Normal Urine Ketones 50 H Urine Occult Blood 10 H Urine Nitrite Negative Urine Bilirubin Negative Urine Urobilinogen Normal Ur Leukocyte Esterase 25 H Urine RBC 0-5 SEEN Urine WBC 0-5 SEEN Ur Squamous Epith Cells 0-5 SEEN Amorphous Sediment 1+ PHOS Urine Bacteria 0 SEEN Urine Mucus 0 SEEN Ur Random Sodium Urine Creatinine Urine Potassium Urine Chloride 05/16/18 05/16/18 05/17/18 21:30 23:40 00:15 WBC RBC Hgb Hct MCV MCH MCHC RDW RDW Differential Plt Count MPV Immature Gran % (Auto) Neut % (Auto) Lymph % (Auto) Bowie % (Auto) Eos % (Auto) Baso % (Auto) Absolute Neuts (auto) Absolute Lymphs (auto) Total Counted PT INR APTT Specimen Type ART Sample Site R Radial pH 7.19 L* Bicarbonate Actual 7.7 L POC Total CO2 8 Base Excess -21 L O2 Saturation 99 ABG pCO2 20.2 L ABG pO2 171 H Nicolas Test POS O2 Delivery Device Nasal Can Liter Flow 2.0 Blood Gas Notified Whom [facility] Blood Gas Notified Time Sodium Potassium Chloride Carbon Dioxide Anion Gap BUN Creatinine Estim Creat Clear Calc Est GFR (MDRD) Af Amer Est GFR (MDRD) Non-Af BUN/Creatinine Ratio Glucose Lactic Acid Calcium Phosphorus Magnesium Total Bilirubin AST ALT Alkaline Phosphatase Troponin I < 0.015 < 0.015 Total Protein Albumin Globulin Albumin/Globulin Ratio Triglycerides 159 Cholesterol 157 LDL Cholesterol 102 VLDL Cholesterol 32 HDL Cholesterol 23 L Urine Color Urine Clarity Urine pH Ur Specific [place] Urine Protein Urine Glucose (UA) Urine Ketones Urine Occult Blood Urine Nitrite Urine Bilirubin Urine Urobilinogen Ur Leukocyte Esterase Urine RBC Urine WBC Ur Squamous Epith Cells Amorphous Sediment Urine Bacteria Urine Mucus Ur Random Sodium Urine Creatinine Urine Potassium Urine Chloride 05/17/18 05/17/18 05/17/18 03:00 03:00 03:00 WBC 2.7 L RBC 4.16 L Hgb 11.6 L Hct 31.3 L MCV 75.2 L MCH 27.9 MCHC 37.1 H RDW 16.7 H RDW Differential 45.7 H Plt Count 190 MPV 8.4 Immature Gran % (Auto) Neut % (Auto) Lymph % (Auto) Bowie % (Auto) Eos % (Auto) Baso % (Auto) Absolute Neuts (auto) Absolute Lymphs (auto) Total Counted PT INR APTT Specimen Type Sample Site pH Bicarbonate Actual POC Total CO2 Base Excess O2 Saturation ABG pCO2 ABG pO2 Nicolas Test O2 Delivery Device Liter Flow Blood Gas Notified Whom Blood Gas Notified Time Sodium 132 L Potassium 2.7 L* Chloride 106 Carbon Dioxide 16.0 L Anion Gap 10 BUN 31 H Creatinine 1.51 H Estim Creat Clear Calc 37.55 Est GFR (MDRD) Af Amer 46 L Est GFR (MDRD) Non-Af 38 L BUN/Creatinine Ratio 20.5 H Glucose 184 H Lactic Acid Calcium 7.5 L Phosphorus Magnesium Total Bilirubin AST ALT Alkaline Phosphatase Troponin I < 0.015 Total Protein Albumin Globulin Albumin/Globulin Ratio Triglycerides Cholesterol LDL Cholesterol VLDL Cholesterol HDL Cholesterol Urine Color Urine Clarity Urine pH Ur Specific [place] Urine Protein Urine Glucose (UA) Urine Ketones Urine Occult Blood Urine Nitrite Urine Bilirubin Urine Urobilinogen Ur Leukocyte Esterase Urine RBC Urine WBC Ur Squamous Epith Cells Amorphous Sediment Urine Bacteria Urine Mucus Ur Random Sodium Urine Creatinine Urine Potassium Urine Chloride 05/17/18 05/17/18 05/17/18 03:00 05:00 09:30 WBC RBC Hgb Hct MCV MCH MCHC RDW RDW Differential Plt Count MPV Immature Gran % (Auto) Neut % (Auto) Lymph % (Auto) Bowie % (Auto) Eos % (Auto) Baso % (Auto) Absolute Neuts (auto) Absolute Lymphs (auto) Total Counted PT INR APTT 45.8 H Specimen Type Sample Site pH Bicarbonate Actual POC Total CO2 Base Excess O2 Saturation ABG pCO2 ABG pO2 Nicolas Test O2 Delivery Device Liter Flow Blood Gas Notified Whom Blood Gas Notified Time Sodium Potassium Chloride Carbon Dioxide Anion Gap BUN Creatinine Estim Creat Clear Calc Est GFR (MDRD) Af Amer Est GFR (MDRD) Non-Af BUN/Creatinine Ratio Glucose Lactic Acid Calcium Phosphorus 0.6 L* Magnesium Total Bilirubin AST ALT Alkaline Phosphatase Troponin I Total Protein Albumin Globulin Albumin/Globulin Ratio Triglycerides Cholesterol LDL Cholesterol VLDL Cholesterol HDL Cholesterol Urine Color Urine Clarity Urine pH Ur Specific [place] Urine Protein Urine Glucose (UA) Urine Ketones Urine Occult Blood Urine Nitrite Urine Bilirubin Urine Urobilinogen Ur Leukocyte Esterase Urine RBC Urine WBC Ur Squamous Epith Cells Amorphous Sediment Urine Bacteria Urine Mucus Ur Random Sodium Urine Creatinine 25.90 Urine Potassium Urine Chloride 05/17/18 05/17/18 05/17/18 09:30 09:30 09:30 WBC RBC Hgb Hct MCV MCH MCHC RDW RDW Differential Plt Count MPV Immature Gran % (Auto) Neut % (Auto) Lymph % (Auto) Bowie % (Auto) Eos % (Auto) Baso % (Auto) Absolute Neuts (auto) Absolute Lymphs (auto) Total Counted PT INR APTT Specimen Type Sample Site pH Bicarbonate Actual POC Total CO2 Base Excess O2 Saturation ABG pCO2 ABG pO2 Nicolas Test O2 Delivery Device Liter Flow Blood Gas Notified Whom Blood Gas Notified Time Sodium Potassium Chloride Carbon Dioxide Anion Gap BUN Creatinine Estim Creat Clear Calc Est GFR (MDRD) Af Amer Est GFR (MDRD) Non-Af BUN/Creatinine Ratio Glucose Lactic Acid Calcium Phosphorus Magnesium Total Bilirubin AST ALT Alkaline Phosphatase Troponin I Total Protein Albumin Globulin Albumin/Globulin Ratio Triglycerides Cholesterol LDL Cholesterol VLDL Cholesterol HDL Cholesterol Urine Color Urine Clarity Urine pH Ur Specific [place] Urine Protein Urine Glucose (UA) Urine Ketones Urine Occult Blood Urine Nitrite Urine Bilirubin Urine Urobilinogen Ur Leukocyte Esterase Urine RBC Urine WBC Ur Squamous Epith Cells Amorphous Sediment Urine Bacteria Urine Mucus Ur Random Sodium 69 Urine Creatinine Urine Potassium 28.0 Urine Chloride 93 05/17/18 05/17/18 05/17/18 12:09 12:45 12:45 WBC Pending RBC Pending Hgb Pending Hct Pending MCV Pending MCH Pending MCHC Pending RDW Pending RDW Differential Pending Plt Count Pending MPV Pending Immature Gran % (Auto) Pending Neut % (Auto) Pending Lymph % (Auto) Pending Bowie % (Auto) Pending Eos % (Auto) Pending Baso % (Auto) Pending Absolute Neuts (auto) Pending Absolute Lymphs (auto) Pending Total Counted Not Reportable PT INR APTT Specimen Type ART Sample Site R Brachial pH 7.36 Bicarbonate Actual 13.7 L POC Total CO2 14 Base Excess -12 L O2 Saturation 99 ABG pCO2 24.1 L ABG pO2 123 H Nicolas Test O2 Delivery Device Nasal Can Liter Flow 2.0 Blood Gas Notified Whom ICU MD Blood Gas Notified Time 1207 Sodium Potassium Chloride Carbon Dioxide Anion Gap BUN Creatinine Estim Creat Clear Calc Est GFR (MDRD) Af Amer Est GFR (MDRD) Non-Af BUN/Creatinine Ratio Glucose Lactic Acid Calcium Phosphorus 1.8 L Magnesium Total Bilirubin AST ALT Alkaline Phosphatase Troponin I Total Protein Albumin Globulin Albumin/Globulin Ratio Triglycerides Cholesterol LDL Cholesterol VLDL Cholesterol HDL Cholesterol Urine Color Urine Clarity Urine pH Ur Specific [place] Urine Protein Urine Glucose (UA) Urine Ketones Urine Occult Blood Urine Nitrite Urine Bilirubin Urine Urobilinogen Ur Leukocyte Esterase Urine RBC Urine WBC Ur Squamous Epith Cells Amorphous Sediment Urine Bacteria Urine Mucus Ur Random Sodium Urine Creatinine Urine Potassium Urine Chloride 05/17/18 12:45 WBC RBC Hgb Hct MCV MCH MCHC RDW RDW Differential Plt Count MPV Immature Gran % (Auto) Neut % (Auto) Lymph % (Auto) Bowie % (Auto) Eos % (Auto) Baso % (Auto) Absolute Neuts (auto) Absolute Lymphs (auto) Total Counted PT INR APTT Specimen Type Sample Site pH Bicarbonate Actual POC Total CO2 Base Excess O2 Saturation ABG pCO2 ABG pO2 Nicolas Test O2 Delivery Device Liter Flow Blood Gas Notified Whom Blood Gas Notified Time Sodium 137 Potassium 2.2 L* Chloride 109 H Carbon Dioxide 18.0 L Anion Gap 10 BUN 20 H Creatinine 1.22 H Estim Creat Clear Calc 46.22 Est GFR (MDRD) Af Amer 59 L Est GFR (MDRD) Non-Af 49 L BUN/Creatinine Ratio 16.4 Glucose 67 L Lactic Acid Calcium 7.2 L Phosphorus Magnesium Total Bilirubin AST ALT Alkaline Phosphatase Troponin I Total Protein Albumin Globulin Albumin/Globulin Ratio Triglycerides Cholesterol LDL Cholesterol VLDL Cholesterol HDL Cholesterol Urine Color Urine Clarity Urine pH Ur Specific [place] Urine Protein Urine Glucose (UA) Urine Ketones Urine Occult Blood Urine Nitrite Urine Bilirubin Urine Urobilinogen Ur Leukocyte Esterase Urine RBC Urine WBC Ur Squamous Epith Cells Amorphous Sediment Urine Bacteria Urine Mucus Ur Random Sodium Urine Creatinine Urine Potassium Urine Chloride POC Glucose 05/17/18 05/17/18 05/17/18 11:14 07:11 02:55 POC Glucose 105 112 H 202 H 05/17/18 05/16/18 05/16/18 00:44 23:42 23:01 POC Glucose 243 H 182 H 225 H 05/16/18 22:07 POC Glucose 52 L Clinical Impression(s) from Imaging Studies Chest X-Ray 05/16/18 17:35 IMPRESSION: Stable x-ray examination of the chest since CT chest/thorax November 17, 2017, as described. Electronically Signed: Ken Real MD at 17:56 EDT , Service support , Chest X-Ray 05/17/18 12:21 IMPRESSION: 1. Stable chronic right perihilar stranding. 2. Subcentimeter faint nodular density projecting in left base is likely an artifact. 3. Right chest wall MediPort again noted. Electronically Signed: Ken Real MD at 13:33 EDT , Service support , Assessment/Plan Active and Suspected Problems (Last Reviewed 05/16/18 @ 20:50 by Sohan Waddell MD) Acute kidney injury (Acute) Hypokalemia (Acute) Abnormal EKG (Acute) Hyponatremia (Acute) Nausea vomiting and diarrhea (Acute) Small cell lung cancer (Acute) RECOMMENDATIONS: 1. Initiate empiric antibiotics, guevara culture 2. Initiate pressors if not fluid responsive 3. Aggressive potassium repletion 4. Appreciate oncology input 5. Obtain chest x-ray IMPRESSIONS: 1. Septic shock of unclear etiology Patient is currently immunosuppressed secondary to chemotherapy. Patient did develop fever and hypotension. Patient did not respond to fluid boluses. Levophed has been initiated. Patient will have guevara cultures to evaluate for etiology. Patient will also be started initially on healthcare associated antibiotics. 2. Acute kidney injury secondary to hypovolemia secondary to gastroenteritis Clinical suspicion for prerenal etiology secondary to volume loss from gastroenteritis. Patient may have an element of sloughing secondary to immunotherapy. No indication for renal replacement therapy at this time. Hima difficile and enteric pathogens are negative. Continue with supportive care. 3. Hypokalemia/hypophosphatemia/hyponatremia Patient continues to have very suppressed potassium levels. Patient was significantly acidotic on presentation. Acidosis has been improved, but still very hypokalemic. We will aggressively resuscitate potassium and phosphorus. Continue telemetry monitoring. Patient may require calcium supplementation. Magnesium is elevated. Patient's EKG changes are likely secondary to jazzmine ctrolyte abnormalities, but cardiology is following. Patient is on aspirin and Lipitor. 4. Small cell lung cancer of the right lung Patient currently receiving immunotherapy at [facility]. Oncology is currently following. 5. Severe protein calorie malnutrition/debility/recurrent hypoglycemia/bipolar/minimal tobacco abuse Complicates care, management, recovery and prognosis. Patient's mental status makes feeding difficult at this time. We will continue to monitor. Dietitian has been consulted and will be following. TIME: 33 minutes critical care time spent addressing patient's septic shock, acute kidney injury, electrolyte abnormalities, review of all data and collaboration with care team. (12:30 PM to 2:30 PM) Code Visit 9xxxx: [id number] Critical care first hour
[2018-05-17 14:21] LABS: Hypochromasia RARE; Microcytosis 1+; Platelet Estimate ADEQUATE (ADEQ)
--- NOTE | 2018-05-17 15:16 | PCM.RX.CS ---
Consult Pharmacy has been consulted to manage selected antiobiotic: Vancomycin Type of Consult: New start Suspected Infection: Sepsis Labs: Sodium 137 mmol/L (136-145) 05/17/18 12:45 Potassium 2.2 mmol/L (3.5-5.1) L* 05/17/18 12:45 Chloride 109 mmol/L (98-107) H 05/17/18 12:45 Carbon Dioxide 18.0 mmol/L (21.0-32.0) L 05/17/18 12:45 Anion Gap 10 (5-15) 05/17/18 12:45 BUN 20 mg/dL (7-18) H 05/17/18 12:45 Creatinine 1.22 mg/dL (0.55-1.02) H 05/17/18 12:45 Est GFR (MDRD) Af Amer 59 mL/min (>60) L 05/17/18 12:45 Est GFR (MDRD) Non-Af 49 mL/min (>60) L 05/17/18 12:45 BUN/Creatinine Ratio 16.4 RATIO (10-20) 05/17/18 12:45 Glucose 67 mg/dL (74-106) L 05/17/18 12:45 Microbiology: Microbiology 05/16/18 21:30 Stool Enteric Bacteriology - Final 05/16/18 21:30 Stool C. difficile DNA Amplification - Final Weight used for dosin.9 kg Estimated Creatinine Clearance: 46 ML/MIN Goal Trough: 15-20 mcg/mL Pharmacy Plan for Drug Dosing: Load with vancomycin 1500mg IV x1, then continue at 500mg IV q12h per pharmacist-managed IV vancomycin dosing protocol. Obtain trough before the 4th total dose. Pharmacy Service will continue to monitor and adjust dosing as required. Follow-Up Labs: Trough Vancomycin Labs to be done on [date and time ordered]: 05/19/18 at 02:30 before the 4th dose at 03:00
--- NOTE | 2018-05-17 17:10 | CON.PCM_ITS ---
Problem List (1) Acute kidney injury Status: Acute (2) Hypokalemia Status: Acute (3) Hyponatremia Status: Acute Consultation - Renal 05/17/18 PCP/ Referring MD: Requesting physician: Dr Caceres Primary care physician: Fausto Iverson DO Reason for Consultation:: MEAGAN, electrolytes abnormalities - History of Present Illness History of Present Illness: The patient is a 52 year old F admitted to hospital with AMS after being found down by friend. she has known history of lung malignancy now with metastasis. was initially on cisplatin, etoposide and recently on opdivo and opililumab. presented to hospital with above complaints. currently in severe septic shock with multiple electrolyte abnormalities currently denies any complaints - Allergies Allergies: Allergies acetaminophen [From Sudafed PE Severe Cold] Allergy (Verified 05/16/18 17:58) / dextromethorphan HBr [From Comtrex Cold-Cough] Allergy (Verified 05/16/18 17:58) Anaphylaxis diphenhydramine [From Sudafed PE Severe Cold] Allergy (Verified 05/16/18 17:58) / phenylephrine [From Sudafed PE Severe Cold] Allergy (Verified 05/16/18 17:58) / phenylephrine HCl [From Comtrex Cold-Cough] Allergy (Verified 05/16/18 17:58) Anaphylaxis - Current Medications Current Medications: Current Medications Aspirin (Aspirin, Baby) 81 mg PO DAILY@0800 [facility] Last Admin: 05/17/18 08:47 Dose: Not Given Atorvastatin Calcium (Lipitor) 80 mg PO QHS [facility] Last Admin: 05/16/18 22:27 Dose: Not Given Cyclobenzaprine HCl (Cyclobenzaprine Hcl) 5 mg PO TID PRN PRN Reason: ANXIETY Heparin Sodium (Beef Lung) (Heparin 500 Unit/5 Ml (100/Ml)) 500 unit IV UD PRN PRN Reason: HEPARIN FLUSH Heparin Sodium (Porcine) (Heparin Na) 5,000 unit SC Q8 [facility] Last Admin: 05/17/18 13:53 Dose: 5,000 unit Sodium Bicarbonate 150 meq/ (Dextrose) 1,150 mls @ 100 mls/hr IV .[id number] [facility] Stop: 05/18/18 00:31 Last Admin: 05/17/18 12:57 Dose: 100 mls/hr Thiamine HCl 100 mg/ Sodium (Chloride) 51 mls @ 200 mls/hr IV DAILY [facility] Last Admin: 05/17/18 13:11 Dose: 200 mls/hr Norepinephrine Bitartrate 8 mg (/ Dextrose) 258 mls @ 9.68 mls/hr IV .[id number] [facility] Last Admin: 05/17/18 13:38 Dose: 9.68 mls/hr Vancomycin IV Pharmacy to Dose (1 ea/ Sodium Chloride) 500 mls @ 250 mls/hr IV X1 PRN; Protocol PRN Reason: Rx to Dose Potassium Phosphate 40 mm/ (Sodium Chloride) 513.3333 mls @ 62.5 mls/hr IV X1 ONE Stop: 05/17/18 22:12 Last Admin: 05/17/18 16:10 Dose: 62.5 mls/hr Meropenem 500 mg/ Sodium (Chloride) 60 mls @ 100 mls/hr IV Q8 [facility] Last Admin: 05/17/18 13:44 Dose: 100 mls/hr Vancomycin HCl () 500 mg in 100 mls @ 100 mls/hr IV Q12H [facility] Potassium Chloride 40 meq/ (Sodium Chloride) 120 mls @ 100 mls/hr IV BOLUS X1 ONE Stop: 05/17/18 17:41 Lorazepam (Ativan) 1 mg PO Q4H PRN PRN PRN Reason: ANXIETY Magnesium Hydroxide (Milk Of Magnesia) 30 ml PO DAILY PRN PRN Reason: Constipation Mirtazapine (Remeron) 7.5 mg PO QHS PRN PRN Reason: SLEEP Ondansetron HCl (Zofran) 8 mg PO Q8H PRN PRN PRN Reason: NAUSEA Ondansetron HCl (Zofran) 4 mg IV Q6H PRN PRN PRN Reason: NAUSEA/VOMITING Oxycodone HCl (Oxyir) 5 mg PO Q6H PRN PRN PRN Reason: PAIN Sodium Chloride () 10 ml IV UD PRN PRN Reason: VAD FLUSH Last Admin: 05/17/18 07:02 Dose: 10 ml Sodium Chloride () 10 ml IV UD PRN PRN Reason: VAD FLUSH - Past Medical History Past Medical History (Chronic Problems): Chronic Problems (Last Reviewed 05/16/18 @ 20:50 by Sohan Waddell MD) Bipolar affect, depressed (Chronic) Tobacco abuse (Chronic) 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) Acid reflux disease (Chronic) Rotator cuff syndrome (Chronic) Adrenal nodule (Chronic) COPD (chronic obstructive pulmonary disease) (Chronic) Poor compliance with medication (Chronic) Left atrial thrombus (Chronic) Tobacco dependence (Chronic) PTSD (post-traumatic stress disorder) (Chronic) 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 [place] Spasm of back muscles (Chronic) Manic depression (Chronic) Dyspnea (Chronic) 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) Chest pain (Chronic) - Past Surgical History Surgical History: - - 2 C sections and surgery on her foot - Social History Smoking Status: Current every day smoker Alcohol: None - Family History Maternal Family History: Family History (Last Reviewed 05/17/18 @ 03:08 by Sohan Waddell MD) Mother Diabetes Hypertension Cancer Father Cancer Headache Sister Cancer Brother Cancer History Items: Diabetes, Hypertension, - - mother of lung CA Paternal Family History: Family History (Last Reviewed 05/17/18 @ 03:08 by Sohan Waddell MD) Mother Diabetes Hypertension Cancer Father Cancer Headache Sister Cancer Brother Cancer History Items: - - father had pancreatitic CA Sibling Family History: Family History (Last Reviewed 05/17/18 @ 03:08 by Sohan Waddell MD) Mother Diabetes Hypertension Cancer Father Cancer Headache Sister Cancer Brother Cancer History Items: Cancer - 1 sister of lymphoma and a brother with pancreatic, - - no one in her family has been diagnosed with BPD Review of Systems Constitutional: Denies: Chills, Fever, Weight Change HEENT: Denies: Head Aches, Sinus Congestion, Sinus Drainage Cardiovascular: Denies: Chest Pain, Palpitations Respiratory: Denies: Cough, Shortness of breath at rest, Sputum production Gastrointestinal: Denies: Abdominal Pain, Nausea, Vomiting Genitourinary: Denies: Dysuria Musculoskeletal: Denies: Joint Pain, Joint Tenderness Skin: Denies: Rash, Wounds Neurological: Denies: Numbness, Tingling, Focal weakness Psychiatric: Denies: Anxiety, Depression, Homicidal Ideations, Suicidal Ideations Hematologic/ Lymphatic: Denies: Easy Bruising, Easy Bleeding Patient Problems: Active and Suspected Problems (Last Reviewed 05/16/18 @ 20:50 by Sohan Waddell MD) Acute kidney injury (Acute) Hypokalemia (Acute) Abnormal EKG (Acute) Hyponatremia (Acute) Nausea vomiting and diarrhea (Acute) Small cell lung cancer (Acute) - Physical Exam General: Alert, Oriented x3, Cooperative HEENT: Atraumatic, PERRLA, EOMI, Normocephalic Neck: Supple, No JVD, Negative Carotid Bruits Lungs: Clear to auscultation, Normal air movement Cardiovascular: Regular rate, No murmurs Abdomen: Bowel Sounds Present, Soft, Non Tender Extremities: No edema, Capillary Refill Less than 3 Seconds Skin: No rashes, No breakdown Musculoskeletal: No Tenderness to Palpation of Joints or Extremities Neurological: Cranial nerves II-XII grossly intact Psych/Mental Status: Normal Affect, Appropriate Vital Signs Temp Pulse Resp BP Pulse Ox 100.1 F H 98 25 H 76/61 L 100 05/17/18 15:05 05/17/18 15:05 05/17/18 15:05 05/17/18 15:05 05/17/18 15:05 Oxygen Flow Rate (L/min) 2 Oxygen Delivery Method Room Air Weight: 54.9 kg Body Mass Index (BMI) 19.5 Intake and Output for Last 24 Hours 05/15/18 05/16/18 05/17/18 23:59 23:59 23:59 Intake Total 512 / 512 433 / 433 Output Total 300 / 300 Balance 512 / 512 133 / 133 Microbiology Past 72 Hours 05/16/18 21:30 Enteric Bacteriology - Final Stool 05/16/18 21:30 C. difficile DNA Amplification - Final Stool Laboratory Tests Past 24 Hrs 05/16/18 05/16/18 05/16/18 17:35 17:35 17:35 WBC 4.0 L RBC 5.06 Hgb 13.0 Hct 38.6 MCV 76.3 L MCH 25.7 L MCHC 33.7 RDW 16.8 H RDW Differential 46.6 H Plt Count 258 MPV 9.0 Immature Gran % (Auto) 0.300 Neut % (Auto) 61.1 Lymph % (Auto) 25.6 [place] % (Auto) 8.9 Eos % (Auto) 3.8 Baso % (Auto) 0.3 Absolute Neuts (auto) 2.4 Absolute Lymphs (auto) 1.01 Total Counted Not Reportable Platelet Estimate Hypochromasia Microcytosis PT 13.2 INR 1.0 APTT 157.3 H* Specimen Type Sample Site pH Bicarbonate Actual POC Total CO2 Base Excess O2 Saturation ABG pCO2 ABG pO2 Nicolas Test O2 Delivery Device Liter Flow Blood Gas Notified Whom Blood Gas Notified Time Sodium 126 L Potassium 2.0 L* Chloride 96 L Carbon Dioxide 9.0 L* Anion Gap 21 H BUN 42 H Creatinine 2.14 H Estim Creat Clear Calc 25.92 Est GFR (MDRD) Af Amer 31 L Est GFR (MDRD) Non-Af 26 L BUN/Creatinine Ratio 19.6 Glucose 67 L Lactic Acid Calcium 8.3 L Phosphorus Magnesium Total Bilirubin 0.40 AST 53 H ALT 37 Alkaline Phosphatase 110 Troponin I < 0.015 Total Protein 7.2 Albumin 3.1 L Globulin 4.1 Albumin/Globulin Ratio 0.8 L Triglycerides Cholesterol LDL Cholesterol VLDL Cholesterol HDL Cholesterol Urine Color Urine Clarity Urine pH Ur Specific [place] Urine Protein Urine Glucose (UA) Urine Ketones Urine Occult Blood Urine Nitrite Urine Bilirubin Urine Urobilinogen Ur Leukocyte Esterase Urine RBC Urine WBC Ur Squamous Epith Cells Amorphous Sediment Urine Bacteria Urine Mucus Ur Random Sodium Urine Creatinine Urine Potassium Urine Chloride 05/16/18 05/16/18 05/16/18 17:35 17:35 18:00 WBC RBC Hgb Hct MCV MCH MCHC RDW RDW Differential Plt Count MPV Immature Gran % (Auto) Neut % (Auto) Lymph % (Auto) [place] % (Auto) Eos % (Auto) Baso % (Auto) Absolute Neuts (auto) Absolute Lymphs (auto) Total Counted Platelet Estimate Hypochromasia Microcytosis PT INR APTT Specimen Type Sample Site pH Bicarbonate Actual POC Total CO2 Base Excess O2 Saturation ABG pCO2 ABG pO2 Nicolas Test O2 Delivery Device Liter Flow Blood Gas Notified Whom Blood Gas Notified Time Sodium Potassium Chloride Carbon Dioxide Anion Gap BUN Creatinine Estim Creat Clear Calc Est GFR (MDRD) Af Amer Est GFR (MDRD) Non-Af BUN/Creatinine Ratio Glucose Lactic Acid 0.9 Calcium Phosphorus Magnesium 2.8 H Total Bilirubin AST ALT Alkaline Phosphatase Troponin I Total Protein Albumin Globulin Albumin/Globulin Ratio Triglycerides Cholesterol LDL Cholesterol VLDL Cholesterol HDL Cholesterol Urine Color Yellow Urine Clarity Sl. Cloudy Urine pH 7.0 Ur Specific [place] 1.010 Urine Protein 100 H Urine Glucose (UA) Normal Urine Ketones 50 H Urine Occult Blood 10 H Urine Nitrite Negative Urine Bilirubin Negative Urine Urobilinogen Normal Ur Leukocyte Esterase 25 H Urine RBC 0-5 SEEN Urine WBC 0-5 SEEN Ur Squamous Epith Cells 0-5 SEEN Amorphous Sediment 1+ PHOS Urine Bacteria 0 SEEN Urine Mucus 0 SEEN Ur Random Sodium Urine Creatinine Urine Potassium Urine Chloride 05/16/18 05/16/18 05/17/18 21:30 23:40 00:15 WBC RBC Hgb Hct MCV MCH MCHC RDW RDW Differential Plt Count MPV Immature Gran % (Auto) Neut % (Auto) Lymph % (Auto) [place] % (Auto) Eos % (Auto) Baso % (Auto) Absolute Neuts (auto) Absolute Lymphs (auto) Total Counted Platelet Estimate Hypochromasia Microcytosis PT INR APTT Specimen Type ART Sample Site R Radial pH 7.19 L* Bicarbonate Actual 7.7 L POC Total CO2 8 Base Excess -21 L O2 Saturation 99 ABG pCO2 20.2 L ABG pO2 171 H Nicolas Test POS O2 Delivery Device Nasal Can Liter Flow 2.0 Blood Gas Notified Whom HOSP Blood Gas Notified Time Sodium Potassium Chloride Carbon Dioxide Anion Gap BUN Creatinine Estim Creat Clear Calc Est GFR (MDRD) Af Amer Est GFR (MDRD) Non-Af BUN/Creatinine Ratio Glucose Lactic Acid Calcium Phosphorus Magnesium Total Bilirubin AST ALT Alkaline Phosphatase Troponin I < 0.015 < 0.015 Total Protein Albumin Globulin Albumin/Globulin Ratio Triglycerides 159 Cholesterol 157 LDL Cholesterol 102 VLDL Cholesterol 32 HDL Cholesterol 23 L Urine Color Urine Clarity Urine pH Ur Specific [place] Urine Protein Urine Glucose (UA) Urine Ketones Urine Occult Blood Urine Nitrite Urine Bilirubin Urine Urobilinogen Ur Leukocyte Esterase Urine RBC Urine WBC Ur Squamous Epith Cells Amorphous Sediment Urine Bacteria Urine Mucus Ur Random Sodium Urine Creatinine Urine Potassium Urine Chloride 05/17/18 05/17/18 05/17/18 03:00 03:00 03:00 WBC 2.7 L RBC 4.16 L Hgb 11.6 L Hct 31.3 L MCV 75.2 L MCH 27.9 MCHC 37.1 H RDW 16.7 H RDW Differential 45.7 H Plt Count 190 MPV 8.4 Immature Gran % (Auto) Neut % (Auto) Lymph % (Auto) [place] % (Auto) Eos % (Auto) Baso % (Auto) Absolute Neuts (auto) Absolute Lymphs (auto) Total Counted Platelet Estimate Hypochromasia Microcytosis PT INR APTT Specimen Type Sample Site pH Bicarbonate Actual POC Total CO2 Base Excess O2 Saturation ABG pCO2 ABG pO2 Nicolas Test O2 Delivery Device Liter Flow Blood Gas Notified Whom Blood Gas Notified Time Sodium 132 L Potassium 2.7 L* Chloride 106 Carbon Dioxide 16.0 L Anion Gap 10 BUN 31 H Creatinine 1.51 H Estim Creat Clear Calc 37.55 Est GFR (MDRD) Af Amer 46 L Est GFR (MDRD) Non-Af 38 L BUN/Creatinine Ratio 20.5 H Glucose 184 H Lactic Acid Calcium 7.5 L Phosphorus Magnesium Total Bilirubin AST ALT Alkaline Phosphatase Troponin I < 0.015 Total Protein Albumin Globulin Albumin/Globulin Ratio Triglycerides Cholesterol LDL Cholesterol VLDL Cholesterol HDL Cholesterol Urine Color Urine Clarity Urine pH Ur Specific [place] Urine Protein Urine Glucose (UA) Urine Ketones Urine Occult Blood Urine Nitrite Urine Bilirubin Urine Urobilinogen Ur Leukocyte Esterase Urine RBC Urine WBC Ur Squamous Epith Cells Amorphous Sediment Urine Bacteria Urine Mucus Ur Random Sodium Urine Creatinine Urine Potassium Urine Chloride 05/17/18 05/17/18 05/17/18 03:00 05:00 09:30 WBC RBC Hgb Hct MCV MCH MCHC RDW RDW Differential Plt Count MPV Immature Gran % (Auto) Neut % (Auto) Lymph % (Auto) [place] % (Auto) Eos % (Auto) Baso % (Auto) Absolute Neuts (auto) Absolute Lymphs (auto) Total Counted Platelet Estimate Hypochromasia Microcytosis PT INR APTT 45.8 H Specimen Type Sample Site pH Bicarbonate Actual POC Total CO2 Base Excess O2 Saturation ABG pCO2 ABG pO2 Nicolas Test O2 Delivery Device Liter Flow Blood Gas Notified Whom Blood Gas Notified Time Sodium Potassium Chloride Carbon Dioxide Anion Gap BUN Creatinine Estim Creat Clear Calc Est GFR (MDRD) Af Amer Est GFR (MDRD) Non-Af BUN/Creatinine Ratio Glucose Lactic Acid Calcium Phosphorus 0.6 L* Magnesium Total Bilirubin AST ALT Alkaline Phosphatase Troponin I Total Protein Albumin Globulin Albumin/Globulin Ratio Triglycerides Cholesterol LDL Cholesterol VLDL Cholesterol HDL Cholesterol Urine Color Urine Clarity Urine pH Ur Specific [place] Urine Protein Urine Glucose (UA) Urine Ketones Urine Occult Blood Urine Nitrite Urine Bilirubin Urine Urobilinogen Ur Leukocyte Esterase Urine RBC Urine WBC Ur Squamous Epith Cells Amorphous Sediment Urine Bacteria Urine Mucus Ur Random Sodium Urine Creatinine 25.90 Urine Potassium Urine Chloride 05/17/18 05/17/18 05/17/18 09:30 09:30 09:30 WBC RBC Hgb Hct MCV MCH MCHC RDW RDW Differential Plt Count MPV Immature Gran % (Auto) Neut % (Auto) Lymph % (Auto) [place] % (Auto) Eos % (Auto) Baso % (Auto) Absolute Neuts (auto) Absolute Lymphs (auto) Total Counted Platelet Estimate Hypochromasia Microcytosis PT INR APTT Specimen Type Sample Site pH Bicarbonate Actual POC Total CO2 Base Excess O2 Saturation ABG pCO2 ABG pO2 Nicolas Test O2 Delivery Device Liter Flow Blood Gas Notified Whom Blood Gas Notified Time Sodium Potassium Chloride Carbon Dioxide Anion Gap BUN Creatinine Estim Creat Clear Calc Est GFR (MDRD) Af Amer Est GFR (MDRD) Non-Af BUN/Creatinine Ratio Glucose Lactic Acid Calcium Phosphorus Magnesium Total Bilirubin AST ALT Alkaline Phosphatase Troponin I Total Protein Albumin Globulin Albumin/Globulin Ratio Triglycerides Cholesterol LDL Cholesterol VLDL Cholesterol HDL Cholesterol Urine Color Urine Clarity Urine pH Ur Specific [place] Urine Protein Urine Glucose (UA) Urine Ketones Urine Occult Blood Urine Nitrite Urine Bilirubin Urine Urobilinogen Ur Leukocyte Esterase Urine RBC Urine WBC Ur Squamous Epith Cells Amorphous Sediment Urine Bacteria Urine Mucus Ur Random Sodium 69 Urine Creatinine Urine Potassium 28.0 Urine Chloride 93 05/17/18 05/17/18 05/17/18 12:09 12:45 12:45 WBC 2.3 L RBC 3.73 L Hgb 10.4 L Hct 27.9 L MCV 74.8 L MCH 27.9 MCHC 37.3 H RDW 16.8 H RDW Differential 46.1 H Plt Count 164 MPV 8.3 Immature Gran % (Auto) 0.000 Neut % (Auto) 66.5 Lymph % (Auto) 23.9 [place] % (Auto) 6.1 Eos % (Auto) 3.5 Baso % (Auto) 0.0 Absolute Neuts (auto) 1.5 L Absolute Lymphs (auto) 0.55 L Total Counted Not Reportable Platelet Estimate ADEQUATE Hypochromasia RARE Microcytosis 1+ PT INR APTT Specimen Type ART Sample Site R Brachial pH 7.36 Bicarbonate Actual 13.7 L POC Total CO2 14 Base Excess -12 L O2 Saturation 99 ABG pCO2 24.1 L ABG pO2 123 H Nicolas Test O2 Delivery Device Nasal Can Liter Flow 2.0 Blood Gas Notified Whom ICU MD Blood Gas Notified Time 1207 Sodium Potassium Chloride Carbon Dioxide Anion Gap BUN Creatinine Estim Creat Clear Calc Est GFR (MDRD) Af Amer Est GFR (MDRD) Non-Af BUN/Creatinine Ratio Glucose Lactic Acid Calcium Phosphorus 1.8 L Magnesium Total Bilirubin AST ALT Alkaline Phosphatase Troponin I Total Protein Albumin Globulin Albumin/Globulin Ratio Triglycerides Cholesterol LDL Cholesterol VLDL Cholesterol HDL Cholesterol Urine Color Urine Clarity Urine pH Ur Specific [place] Urine Protein Urine Glucose (UA) Urine Ketones Urine Occult Blood Urine Nitrite Urine Bilirubin Urine Urobilinogen Ur Leukocyte Esterase Urine RBC Urine WBC Ur Squamous Epith Cells Amorphous Sediment Urine Bacteria Urine Mucus Ur Random Sodium Urine Creatinine Urine Potassium Urine Chloride 05/17/18 12:45 WBC RBC Hgb Hct MCV MCH MCHC RDW RDW Differential Plt Count MPV Immature Gran % (Auto) Neut % (Auto) Lymph % (Auto) [place] % (Auto) Eos % (Auto) Baso % (Auto) Absolute Neuts (auto) Absolute Lymphs (auto) Total Counted Platelet Estimate Hypochromasia Microcytosis PT INR APTT Specimen Type Sample Site pH Bicarbonate Actual POC Total CO2 Base Excess O2 Saturation ABG pCO2 ABG pO2 Nicolas Test O2 Delivery Device Liter Flow Blood Gas Notified Whom Blood Gas Notified Time Sodium 137 Potassium 2.2 L* Chloride 109 H Carbon Dioxide 18.0 L Anion Gap 10 BUN 20 H Creatinine 1.22 H Estim Creat Clear Calc 46.22 Est GFR (MDRD) Af Amer 59 L Est GFR (MDRD) Non-Af 49 L BUN/Creatinine Ratio 16.4 Glucose 67 L Lactic Acid Calcium 7.2 L Phosphorus Magnesium Total Bilirubin AST ALT Alkaline Phosphatase Troponin I Total Protein Albumin Globulin Albumin/Globulin Ratio Triglycerides Cholesterol LDL Cholesterol VLDL Cholesterol HDL Cholesterol Urine Color Urine Clarity Urine pH Ur Specific [place] Urine Protein Urine Glucose (UA) Urine Ketones Urine Occult Blood Urine Nitrite Urine Bilirubin Urine Urobilinogen Ur Leukocyte Esterase Urine RBC Urine WBC Ur Squamous Epith Cells Amorphous Sediment Urine Bacteria Urine Mucus Ur Random Sodium Urine Creatinine Urine Potassium Urine Chloride POC Glucose 05/17/18 05/17/18 05/17/18 11:14 07:11 02:55 POC Glucose 105 112 H 202 H 05/17/18 05/16/18 05/16/18 00:44 23:42 23:01 POC Glucose 243 H 182 H 225 H 05/16/18 22:07 POC Glucose 52 L Assessment/Plan All Active Problems (Last Reviewed 05/16/18 @ 20:50 by Sohan Waddell MD) Acute kidney injury (Acute) Hypokalemia (Acute) Abnormal EKG (Acute) Hyponatremia (Acute) Nausea vomiting and diarrhea (Acute) Pulmonary embolism (Acute) Periodontal disease (Acute) Nausea & vomiting (Acute) Headache (Acute) Encounter for adjustment or management of vascular access device (Acute) Small cell lung cancer (Acute) Regional lymph node metastasis present (Acute) Lung metastasis (Acute) MEAGAN. likely related to volume depletion. Creatinine is better, urine output is better Hypokalemia Hypophosphatemia Acidosis normal serum magnesium Could be part of fanconis syndrome related to cisplatin or electrolyte depletion. Opdivo is not known to cause fanconis syndrome. continue bicarbonate drip continue other electrolyte repletion as tolerated Hyponatremia. likely hypovolemic. better will follow
[2018-05-17 18:46] LABS: Bedside Glucose 119 mg/dL (70-110)
[2018-05-17] MEDS: Acetaminophen 325 MG Tablet 650 MG PO (21:47)
[2018-05-18] VITALS (59 sets, daily range): BP systolic 63–104; BP diastolic 40–80; PULSE 98–130; RESP 15–126; TEMP 37.1–39.1; O2SAT 96–100
[2018-05-18 01:06] LABS: Bedside Glucose 171 mg/dL (70-110)
[2018-05-18] MEDS: Vancomycin IV 500 MG/100 ML BAG 100 MG IV ×2 (02:58→15:14)
[2018-05-18] MEDS: 0.9% NaCl VAD Flush 10 ML IV ×5 (02:59→13:36)
[2018-05-18] MEDS: CHLORHEXIDINE GLUC 2% CLOTH 1 EACH TOWELETTE TOPICAL (03:37)
[2018-05-18 04:02] LABS: Anion Gap 10 (5-15); BUN 10 mg/dL (7-18); Calcium,Total 7.1 mg/dL (8.5-10.1); Chloride 108 mmol/L (98-107); Creatinine, Serum 1.25 mg/dL (0.55-1.02); EST Glomerular Filtration Rate 48 mL/min (>60); Est Glom Filt Rate - Afr Amer 57 mL/min (>60); Estimated Creatinine Clearance 45.11 ml/min; Glucose 158 mg/dL (74-106); Phosphorus 2.7 mg/dL (2.5-4.9); Potassium 2.7 mmol/L (3.5-5.1); Sodium Level 140 mmol/L (136-145)
[2018-05-18 04:11] LABS: Absolute Lymphocyte Count 0.79 X10^3/ul (0.83-4.51); Absolute Neutrophil Count 2.1 X10^3/uL (2.0-7.7); Basophil# 0.01 X10^3/uL; Basophil% 0.3 % (0-1); Eosinophils% 3.2 % (0-5); Hematocrit 29.8 % (37-47); Hemoglobin 11.6 g/dl (12.0-15.0); Lymphocyte # 0.79 X10^3/ul (4.0); Mean Corp Hgb Conc 38.9 g/gl (32-36); Mean Corpuscular Volume 74.5 fL (81-99); Mean Platelet Vol. 8.9 fl (6.2-12.0); Monocyte% 6.3 % (0-10); Neutrophil # 2.05 X10^3/uL (2.7-7.7); Neutrophil % 64.9 % (47-70); Platelet Count 212 K/mm3 (150-450); RBC Distribution Width CV 16.7 % (11.6-14.6); RBC Distribution Width SD 44.2 fl (35.1-43.9); White Blood Count 3.2 K/mm3 (4.4-11.0)
[2018-05-18 04:45] LABS: Differential Comment SCANNED; Differential Indicated SCAN CRITERIA MET; POSITIVE COUNT YES; POSITIVE DIFFERENTIAL NO; POSITIVE MORPHOLOGY NO
[2018-05-18] MEDS: Heparin Injection (Vial) 5,000 UNIT/ML VIAL 5000 UNIT SC ×3 (06:06→21:25)
[2018-05-18] MEDS: Acetaminophen 325 MG Tablet 650 MG PO (06:06)
[2018-05-18 06:31] LABS: Bedside Glucose 96 mg/dL (70-110)
--- NOTE | 2018-05-18 06:43 | PN_ITS ---
Subjective: Patient did okay overnight. Patient did have significant fever that did respond to Tylenol. No anaphylaxis was noted. Patient has been able to come off of pressor therapy this morning, but remains tachycardic. Patient is more responsive and knows who I am, which is an improvement from yesterday. However, patient does not appear to be completely alert and oriented. Patient continues to have significant diarrhea. General: Cooperative - Improved from previous, No apparent distress, - - RASS - 1. Appears older than stated age. Cachectic. HEENT: Atraumatic, PERRLA, EOMI, Normocephalic, - - No scleral icterus or injection noted. Oral: No Gingival or Mucosal Lesions/ Ulcerations, Dry Mucosa, - - No thrush is appreciated. Neck: Supple, No JVD, No Nodes, Trachea Midline Lungs: No rhonchi, No wheeze, No rales, Diminished, - - Symmetric expansion. No dullness to percussion. Cardiovascular: Normal S1, Normal S2, No murmurs, No rub noted, No Gallop, Tachycardic Abdomen: Bowel Sounds Present, Soft, Non Tender, Non-Distended Extremities: No cyanosis, No edema, Capillary Refill Less than 3 Seconds, Clubbing Musculoskeletal: No Tenderness to Palpation of Joints or Extremities, Cachexia, Muscle Wasting Lymphatic: No Cervical, Supraclavicular, or Inguinal Adenopathy Neurological: Cranial nerves II-XII grossly intact, Neuro grossly intact Psych/Mental Status: Flat Affect Vital Signs Temp Pulse Resp BP Pulse Ox 38.7 C H 111 H 30 H 88/67 L 99 05/18/18 06:00 05/18/18 06:30 05/18/18 06:30 05/18/18 06:30 05/18/18 06:30 Oxygen Flow Rate (L/min) 2 Oxygen Delivery Method Room Air Weight: 54.7 kg Body Mass Index (BMI) 19.5 Intake and Output for Last 24 Hours 05/16/18 05/17/18 05/18/18 23:59 23:59 23:59 Intake Total 512 / 512 1641 / 1641 2402 / 2402 Output Total 1600 / 1600 2400 / 2400 Balance 512 / 512 41 / 41 2 / 2 Labs (Last 48 Hours) 05/16/18 05/16/18 05/16/18 17:35 17:35 17:35 WBC 4.0 L RBC 5.06 Hgb 13.0 Hct 38.6 MCV 76.3 L MCH 25.7 L MCHC 33.7 RDW 16.8 H RDW Differential 46.6 H Plt Count 258 MPV 9.0 Immature Gran % (Auto) 0.300 Neut % (Auto) 61.1 Lymph % (Auto) 25.6 [place] % (Auto) 8.9 Eos % (Auto) 3.8 Baso % (Auto) 0.3 Absolute Neuts (auto) 2.4 Absolute Lymphs (auto) 1.01 Total Counted Not Reportable Differential Comment Platelet Estimate Hypochromasia Microcytosis PT 13.2 INR 1.0 APTT 157.3 H* Specimen Type Sample Site pH Bicarbonate Actual POC Total CO2 Base Excess O2 Saturation ABG pCO2 ABG pO2 Nicolas Test O2 Delivery Device Liter Flow Blood Gas Notified Whom Blood Gas Notified Time Sodium 126 L Potassium 2.0 L* Chloride 96 L Carbon Dioxide 9.0 L* Anion Gap 21 H BUN 42 H Creatinine 2.14 H Estim Creat Clear Calc 25.92 Est GFR (MDRD) Af Amer 31 L Est GFR (MDRD) Non-Af 26 L BUN/Creatinine Ratio 19.6 Glucose 67 L Lactic Acid Calcium 8.3 L Phosphorus Magnesium Total Bilirubin 0.40 AST 53 H ALT 37 Alkaline Phosphatase 110 Troponin I < 0.015 Total Protein 7.2 Albumin 3.1 L Globulin 4.1 Albumin/Globulin Ratio 0.8 L Triglycerides Cholesterol LDL Cholesterol VLDL Cholesterol HDL Cholesterol Urine Color Urine Clarity Urine pH Ur Specific [place] Urine Protein Urine Glucose (UA) Urine Ketones Urine Occult Blood Urine Nitrite Urine Bilirubin Urine Urobilinogen Ur Leukocyte Esterase Urine RBC Urine WBC Ur Squamous Epith Cells Amorphous Sediment Urine Bacteria Urine Mucus Ur Random Sodium Urine Creatinine Urine Potassium Urine Chloride POC Glucose 05/16/1818 18 17:35 17:35 18:00 WBC RBC Hgb Hct MCV MCH MCHC RDW RDW Differential Plt Count MPV Immature Gran % (Auto) Neut % (Auto) Lymph % (Auto) [place] % (Auto) Eos % (Auto) Baso % (Auto) Absolute Neuts (auto) Absolute Lymphs (auto) Total Counted Differential Comment Platelet Estimate Hypochromasia Microcytosis PT INR APTT Specimen Type Sample Site pH Bicarbonate Actual POC Total CO2 Base Excess O2 Saturation ABG pCO2 ABG pO2 Nicolas Test O2 Delivery Device Liter Flow Blood Gas Notified Whom Blood Gas Notified Time Sodium Potassium Chloride Carbon Dioxide Anion Gap BUN Creatinine Estim Creat Clear Calc Est GFR (MDRD) Af Amer Est GFR (MDRD) Non-Af BUN/Creatinine Ratio Glucose Lactic Acid 0.9 Calcium Phosphorus Magnesium 2.8 H Total Bilirubin AST ALT Alkaline Phosphatase Troponin I Total Protein Albumin Globulin Albumin/Globulin Ratio Triglycerides Cholesterol LDL Cholesterol VLDL Cholesterol HDL Cholesterol Urine Color Yellow Urine Clarity Sl. Cloudy Urine pH 7.0 Ur Specific [place] 1.010 Urine Protein 100 H Urine Glucose (UA) Normal Urine Ketones 50 H Urine Occult Blood 10 H Urine Nitrite Negative Urine Bilirubin Negative Urine Urobilinogen Normal Ur Leukocyte Esterase 25 H Urine RBC 0-5 SEEN Urine WBC 0-5 SEEN Ur Squamous Epith Cells 0-5 SEEN Amorphous Sediment 1+ PHOS Urine Bacteria 0 SEEN Urine Mucus 0 SEEN Ur Random Sodium Urine Creatinine Urine Potassium Urine Chloride POC Glucose 05/16/18 05/16/18 05/16/18 21:30 22:07 23:01 WBC RBC Hgb Hct MCV MCH MCHC RDW RDW Differential Plt Count MPV Immature Gran % (Auto) Neut % (Auto) Lymph % (Auto) [place] % (Auto) Eos % (Auto) Baso % (Auto) Absolute Neuts (auto) Absolute Lymphs (auto) Total Counted Differential Comment Platelet Estimate Hypochromasia Microcytosis PT INR APTT Specimen Type Sample Site pH Bicarbonate Actual POC Total CO2 Base Excess O2 Saturation ABG pCO2 ABG pO2 Nicolas Test O2 Delivery Device Liter Flow Blood Gas Notified Whom Blood Gas Notified Time Sodium Potassium Chloride Carbon Dioxide Anion Gap BUN Creatinine Estim Creat Clear Calc Est GFR (MDRD) Af Amer Est GFR (MDRD) Non-Af BUN/Creatinine Ratio Glucose Lactic Acid Calcium Phosphorus Magnesium Total Bilirubin AST ALT Alkaline Phosphatase Troponin I < 0.015 Total Protein Albumin Globulin Albumin/Globulin Ratio Triglycerides 159 Cholesterol 157 LDL Cholesterol 102 VLDL Cholesterol 32 HDL Cholesterol 23 L Urine Color Urine Clarity Urine pH Ur Specific [place] Urine Protein Urine Glucose (UA) Urine Ketones Urine Occult Blood Urine Nitrite Urine Bilirubin Urine Urobilinogen Ur Leukocyte Esterase Urine RBC Urine WBC Ur Squamous Epith Cells Amorphous Sediment Urine Bacteria Urine Mucus Ur Random Sodium Urine Creatinine Urine Potassium Urine Chloride POC Glucose 52 L 225 H 05/16/18 05/16/18 05/17/18 23:40 23:42 00:15 WBC RBC Hgb Hct MCV MCH MCHC RDW RDW Differential Plt Count MPV Immature Gran % (Auto) Neut % (Auto) Lymph % (Auto) [place] % (Auto) Eos % (Auto) Baso % (Auto) Absolute Neuts (auto) Absolute Lymphs (auto) Total Counted Differential Comment Platelet Estimate Hypochromasia Microcytosis PT INR APTT Specimen Type ART Sample Site R Radial pH 7.19 L* Bicarbonate Actual 7.7 L POC Total CO2 8 Base Excess -21 L O2 Saturation 99 ABG pCO2 20.2 L ABG pO2 171 H Nicolas Test POS O2 Delivery Device Nasal Can Liter Flow 2.0 Blood Gas Notified Whom [facility] Blood Gas Notified Time Sodium Potassium Chloride Carbon Dioxide Anion Gap BUN Creatinine Estim Creat Clear Calc Est GFR (MDRD) Af Amer Est GFR (MDRD) Non-Af BUN/Creatinine Ratio Glucose Lactic Acid Calcium Phosphorus Magnesium Total Bilirubin AST ALT Alkaline Phosphatase Troponin I < 0.015 Total Protein Albumin Globulin Albumin/Globulin Ratio Triglycerides Cholesterol LDL Cholesterol VLDL Cholesterol HDL Cholesterol Urine Color Urine Clarity Urine pH Ur Specific [place] Urine Protein Urine Glucose (UA) Urine Ketones Urine Occult Blood Urine Nitrite Urine Bilirubin Urine Urobilinogen Ur Leukocyte Esterase Urine RBC Urine WBC Ur Squamous Epith Cells Amorphous Sediment Urine Bacteria Urine Mucus Ur Random Sodium Urine Creatinine Urine Potassium Urine Chloride POC Glucose 182 H 05/17/18 05/17/18 05/17/18 00:44 02:55 03:00 WBC 2.7 L RBC 4.16 L Hgb 11.6 L Hct 31.3 L MCV 75.2 L MCH 27.9 MCHC 37.1 H RDW 16.7 H RDW Differential 45.7 H Plt Count 190 MPV 8.4 Immature Gran % (Auto) Neut % (Auto) Lymph % (Auto) [place] % (Auto) Eos % (Auto) Baso % (Auto) Absolute Neuts (auto) Absolute Lymphs (auto) Total Counted Differential Comment Platelet Estimate Hypochromasia Microcytosis PT INR APTT Specimen Type Sample Site pH Bicarbonate Actual POC Total CO2 Base Excess O2 Saturation ABG pCO2 ABG pO2 Nicolas Test O2 Delivery Device Liter Flow Blood Gas Notified Whom Blood Gas Notified Time Sodium Potassium Chloride Carbon Dioxide Anion Gap BUN Creatinine Estim Creat Clear Calc Est GFR (MDRD) Af Amer Est GFR (MDRD) Non-Af BUN/Creatinine Ratio Glucose Lactic Acid Calcium Phosphorus Magnesium Total Bilirubin AST ALT Alkaline Phosphatase Troponin I Total Protein Albumin Globulin Albumin/Globulin Ratio Triglycerides Cholesterol LDL Cholesterol VLDL Cholesterol HDL Cholesterol Urine Color Urine Clarity Urine pH Ur Specific [place] Urine Protein Urine Glucose (UA) Urine Ketones Urine Occult Blood Urine Nitrite Urine Bilirubin Urine Urobilinogen Ur Leukocyte Esterase Urine RBC Urine WBC Ur Squamous Epith Cells Amorphous Sediment Urine Bacteria Urine Mucus Ur Random Sodium Urine Creatinine Urine Potassium Urine Chloride POC Glucose 243 H 202 H 05/17/18 05/17/18 05/17/18 03:00 03:00 03:00 WBC RBC Hgb Hct MCV MCH MCHC RDW RDW Differential Plt Count MPV Immature Gran % (Auto) Neut % (Auto) Lymph % (Auto) [place] % (Auto) Eos % (Auto) Baso % (Auto) Absolute Neuts (auto) Absolute Lymphs (auto) Total Counted Differential Comment Platelet Estimate Hypochromasia Microcytosis PT INR APTT Specimen Type Sample Site pH Bicarbonate Actual POC Total CO2 Base Excess O2 Saturation ABG pCO2 ABG pO2 Nicolas Test O2 Delivery Device Liter Flow Blood Gas Notified Whom Blood Gas Notified Time Sodium 132 L Potassium 2.7 L* Chloride 106 Carbon Dioxide 16.0 L Anion Gap 10 BUN 31 H Creatinine 1.51 H Estim Creat Clear Calc 37.55 Est GFR (MDRD) Af Amer 46 L Est GFR (MDRD) Non-Af 38 L BUN/Creatinine Ratio 20.5 H Glucose 184 H Lactic Acid Calcium 7.5 L Phosphorus 0.6 L* Magnesium Total Bilirubin AST ALT Alkaline Phosphatase Troponin I < 0.015 Total Protein Albumin Globulin Albumin/Globulin Ratio Triglycerides Cholesterol LDL Cholesterol VLDL Cholesterol HDL Cholesterol Urine Color Urine Clarity Urine pH Ur Specific [place] Urine Protein Urine Glucose (UA) Urine Ketones Urine Occult Blood Urine Nitrite Urine Bilirubin Urine Urobilinogen Ur Leukocyte Esterase Urine RBC Urine WBC Ur Squamous Epith Cells Amorphous Sediment Urine Bacteria Urine Mucus Ur Random Sodium Urine Creatinine Urine Potassium Urine Chloride POC Glucose 05/17/18 05/17/18 05/17/18 05:00 07:11 09:30 WBC RBC Hgb Hct MCV MCH MCHC RDW RDW Differential Plt Count MPV Immature Gran % (Auto) Neut % (Auto) Lymph % (Auto) [place] % (Auto) Eos % (Auto) Baso % (Auto) Absolute Neuts (auto) Absolute Lymphs (auto) Total Counted Differential Comment Platelet Estimate Hypochromasia Microcytosis PT INR APTT 45.8 H Specimen Type Sample Site pH Bicarbonate Actual POC Total CO2 Base Excess O2 Saturation ABG pCO2 ABG pO2 Nicolas Test O2 Delivery Device Liter Flow Blood Gas Notified Whom Blood Gas Notified Time Sodium Potassium Chloride Carbon Dioxide Anion Gap BUN Creatinine Estim Creat Clear Calc Est GFR (MDRD) Af Amer Est GFR (MDRD) Non-Af BUN/Creatinine Ratio Glucose Lactic Acid Calcium Phosphorus Magnesium Total Bilirubin AST ALT Alkaline Phosphatase Troponin I Total Protein Albumin Globulin Albumin/Globulin Ratio Triglycerides Cholesterol LDL Cholesterol VLDL Cholesterol HDL Cholesterol Urine Color Urine Clarity Urine pH Ur Specific [place] Urine Protein Urine Glucose (UA) Urine Ketones Urine Occult Blood Urine Nitrite Urine Bilirubin Urine Urobilinogen Ur Leukocyte Esterase Urine RBC Urine WBC Ur Squamous Epith Cells Amorphous Sediment Urine Bacteria Urine Mucus Ur Random Sodium Urine Creatinine 25.90 Urine Potassium Urine Chloride POC Glucose 112 H 05/17/18 05/17/18 05/17/18 09:30 09:30 09:30 WBC RBC Hgb Hct MCV MCH MCHC RDW RDW Differential Plt Count MPV Immature Gran % (Auto) Neut % (Auto) Lymph % (Auto) [place] % (Auto) Eos % (Auto) Baso % (Auto) Absolute Neuts (auto) Absolute Lymphs (auto) Total Counted Differential Comment Platelet Estimate Hypochromasia Microcytosis PT INR APTT Specimen Type Sample Site pH Bicarbonate Actual POC Total CO2 Base Excess O2 Saturation ABG pCO2 ABG pO2 Nicolas Test O2 Delivery Device Liter Flow Blood Gas Notified Whom Blood Gas Notified Time Sodium Potassium Chloride Carbon Dioxide Anion Gap BUN Creatinine Estim Creat Clear Calc Est GFR (MDRD) Af Amer Est GFR (MDRD) Non-Af BUN/Creatinine Ratio Glucose Lactic Acid Calcium Phosphorus Magnesium Total Bilirubin AST ALT Alkaline Phosphatase Troponin I Total Protein Albumin Globulin Albumin/Globulin Ratio Triglycerides Cholesterol LDL Cholesterol VLDL Cholesterol HDL Cholesterol Urine Color Urine Clarity Urine pH Ur Specific [place] Urine Protein Urine Glucose (UA) Urine Ketones Urine Occult Blood Urine Nitrite Urine Bilirubin Urine Urobilinogen Ur Leukocyte Esterase Urine RBC Urine WBC Ur Squamous Epith Cells Amorphous Sediment Urine Bacteria Urine Mucus Ur Random Sodium 69 Urine Creatinine Urine Potassium 28.0 Urine Chloride 93 POC Glucose 05/17/18 05/17/18 05/17/18 11:14 12:09 12:45 WBC RBC Hgb Hct MCV MCH MCHC RDW RDW Differential Plt Count MPV Immature Gran % (Auto) Neut % (Auto) Lymph % (Auto) [place] % (Auto) Eos % (Auto) Baso % (Auto) Absolute Neuts (auto) Absolute Lymphs (auto) Total Counted Differential Comment Platelet Estimate Hypochromasia Microcytosis PT INR APTT Specimen Type ART Sample Site R Brachial pH 7.36 Bicarbonate Actual 13.7 L POC Total CO2 14 Base Excess -12 L O2 Saturation 99 ABG pCO2 24.1 L ABG pO2 123 H Nicolas Test O2 Delivery Device Nasal Can Liter Flow 2.0 Blood Gas Notified Whom ICU MD Blood Gas Notified Time 1207 Sodium Potassium Chloride Carbon Dioxide Anion Gap BUN Creatinine Estim Creat Clear Calc Est GFR (MDRD) Af Amer Est GFR (MDRD) Non-Af BUN/Creatinine Ratio Glucose Lactic Acid Calcium Phosphorus 1.8 L Magnesium Total Bilirubin AST ALT Alkaline Phosphatase Troponin I Total Protein Albumin Globulin Albumin/Globulin Ratio Triglycerides Cholesterol LDL Cholesterol VLDL Cholesterol HDL Cholesterol Urine Color Urine Clarity Urine pH Ur Specific [place] Urine Protein Urine Glucose (UA) Urine Ketones Urine Occult Blood Urine Nitrite Urine Bilirubin Urine Urobilinogen Ur Leukocyte Esterase Urine RBC Urine WBC Ur Squamous Epith Cells Amorphous Sediment Urine Bacteria Urine Mucus Ur Random Sodium Urine Creatinine Urine Potassium Urine Chloride POC Glucose 105 05/17/18 05/17/18 05/17/18 12:45 12:45 18:38 WBC 2.3 L RBC 3.73 L Hgb 10.4 L Hct 27.9 L MCV 74.8 L MCH 27.9 MCHC 37.3 H RDW 16.8 H RDW Differential 46.1 H Plt Count 164 MPV 8.3 Immature Gran % (Auto) 0.000 Neut % (Auto) 66.5 Lymph % (Auto) 23.9 [place] % (Auto) 6.1 Eos % (Auto) 3.5 Baso % (Auto) 0.0 Absolute Neuts (auto) 1.5 L Absolute Lymphs (auto) 0.55 L Total Counted Not Reportable Differential Comment Platelet Estimate ADEQUATE Hypochromasia RARE Microcytosis 1+ PT INR APTT Specimen Type Sample Site pH Bicarbonate Actual POC Total CO2 Base Excess O2 Saturation ABG pCO2 ABG pO2 Nicolas Test O2 Delivery Device Liter Flow Blood Gas Notified Whom Blood Gas Notified Time Sodium 137 Potassium 2.2 L* Chloride 109 H Carbon Dioxide 18.0 L Anion Gap 10 BUN 20 H Creatinine 1.22 H Estim Creat Clear Calc 46.22 Est GFR (MDRD) Af Amer 59 L Est GFR (MDRD) Non-Af 49 L BUN/Creatinine Ratio 16.4 Glucose 67 L Lactic Acid Calcium 7.2 L Phosphorus Magnesium Total Bilirubin AST ALT Alkaline Phosphatase Troponin I Total Protein Albumin Globulin Albumin/Globulin Ratio Triglycerides Cholesterol LDL Cholesterol VLDL Cholesterol HDL Cholesterol Urine Color Urine Clarity Urine pH Ur Specific [place] Urine Protein Urine Glucose (UA) Urine Ketones Urine Occult Blood Urine Nitrite Urine Bilirubin Urine Urobilinogen Ur Leukocyte Esterase Urine RBC Urine WBC Ur Squamous Epith Cells Amorphous Sediment Urine Bacteria Urine Mucus Ur Random Sodium Urine Creatinine Urine Potassium Urine Chloride POC Glucose 119 H 05/18/18 05/18/18 05/18/18 00:59 03:30 03:30 WBC 3.2 L RBC 4.00 L Hgb 11.6 L Hct 29.8 L MCV 74.5 L MCH 29.0 MCHC 38.9 H RDW 16.7 H RDW Differential 44.2 H Plt Count 212 MPV 8.9 Immature Gran % (Auto) 0.300 Neut % (Auto) 64.9 Lymph % (Auto) 25.0 [place] % (Auto) 6.3 Eos % (Auto) 3.2 Baso % (Auto) 0.3 Absolute Neuts (auto) 2.1 Absolute Lymphs (auto) 0.79 L Total Counted Not Reportable Differential Comment SCANNED Platelet Estimate Hypochromasia Microcytosis PT INR APTT Specimen Type Sample Site pH Bicarbonate Actual POC Total CO2 Base Excess O2 Saturation ABG pCO2 ABG pO2 Nicolas Test O2 Delivery Device Liter Flow Blood Gas Notified Whom Blood Gas Notified Time Sodium 140 Potassium 2.7 L* Chloride 108 H Carbon Dioxide 22.0 Anion Gap 10 BUN 10 Creatinine 1.25 H Estim Creat Clear Calc 45.11 Est GFR (MDRD) Af Amer 57 L Est GFR (MDRD) Non-Af 48 L BUN/Creatinine Ratio 8.0 L Glucose 158 H Lactic Acid Calcium 7.1 L Phosphorus 2.7 Magnesium Total Bilirubin AST ALT Alkaline Phosphatase Troponin I Total Protein Albumin Globulin Albumin/Globulin Ratio Triglycerides Cholesterol LDL Cholesterol VLDL Cholesterol HDL Cholesterol Urine Color Urine Clarity Urine pH Ur Specific [place] Urine Protein Urine Glucose (UA) Urine Ketones Urine Occult Blood Urine Nitrite Urine Bilirubin Urine Urobilinogen Ur Leukocyte Esterase Urine RBC Urine WBC Ur Squamous Epith Cells Amorphous Sediment Urine Bacteria Urine Mucus Ur Random Sodium Urine Creatinine Urine Potassium Urine Chloride POC Glucose 171 H 05/18/18 06:26 WBC RBC Hgb Hct MCV MCH MCHC RDW RDW Differential Plt Count MPV Immature Gran % (Auto) Neut % (Auto) Lymph % (Auto) [place] % (Auto) Eos % (Auto) Baso % (Auto) Absolute Neuts (auto) Absolute Lymphs (auto) Total Counted Differential Comment Platelet Estimate Hypochromasia Microcytosis PT INR APTT Specimen Type Sample Site pH Bicarbonate Actual POC Total CO2 Base Excess O2 Saturation ABG pCO2 ABG pO2 Nicolas Test O2 Delivery Device Liter Flow Blood Gas Notified Whom Blood Gas Notified Time Sodium Potassium Chloride Carbon Dioxide Anion Gap BUN Creatinine Estim Creat Clear Calc Est GFR (MDRD) Af Amer Est GFR (MDRD) Non-Af BUN/Creatinine Ratio Glucose Lactic Acid Calcium Phosphorus Magnesium Total Bilirubin AST ALT Alkaline Phosphatase Troponin I Total Protein Albumin Globulin Albumin/Globulin Ratio Triglycerides Cholesterol LDL Cholesterol VLDL Cholesterol HDL Cholesterol Urine Color Urine Clarity Urine pH Ur Specific [place] Urine Protein Urine Glucose (UA) Urine Ketones Urine Occult Blood Urine Nitrite Urine Bilirubin Urine Urobilinogen Ur Leukocyte Esterase Urine RBC Urine WBC Ur Squamous Epith Cells Amorphous Sediment Urine Bacteria Urine Mucus Ur Random Sodium Urine Creatinine Urine Potassium Urine Chloride POC Glucose 96 Microbiology 05/16/18 21:30 Stool Enteric Bacteriology - Final 05/16/18 21:30 Stool C. difficile DNA Amplification - Final Clinical Impression(s) from Imaging Studies Chest X-Ray 05/17/18 12:21 IMPRESSION: 1. Stable chronic right perihilar stranding. 2. Subcentimeter faint nodular density projecting in left base is likely an artifact. 3. Right chest wall MediPort again noted. Electronically Signed: Ken Real MD at 13:33 EDT , Service support , Medical Necessity - Tobacco Use Smoking Status: Current every day smoker Tobacco Use: Cigarettes Assessment/Plan All Active Problems (Last Reviewed 05/16/18 @ 20:50 by Sohan Waddell MD) Acute kidney injury (Acute) Hypokalemia (Acute) Abnormal EKG (Acute) Hyponatremia (Acute) Nausea vomiting and diarrhea (Acute) Pulmonary embolism (Acute) Periodontal disease (Acute) Nausea & vomiting (Acute) Headache (Acute) Encounter for adjustment or management of vascular access device (Acute) Small cell lung cancer (Acute) Regional lymph node metastasis present (Acute) Lung metastasis (Acute) RECOMMENDATIONS: 1. Continue empiric antibiotics, await guevara culture 2. Reinitiate pressors if needed 3. Aggressive potassium repletion 4. Appreciate oncology, renal input 5. Consult speech therapy for evaluation IMPRESSIONS: 1. Septic shock of unclear etiology Patient is currently immunosuppressed secondary to chemotherapy. Patient did develop fever and hypotension. Patient did not respond to fluid boluses. Levophed was initiated overnight, but is currently on hold. Await guevara cultures to evaluate for etiology. Patient will also be started initially on healthcare associated antibiotics. 2. Acute kidney injury secondary to hypovolemia secondary to gastroenteritis Improving. Clinical suspicion for prerenal etiology secondary to volume loss from gastroenteritis. Patient may have an element of sloughing secondary to immunotherapy. No indication for renal replacement therapy at this time. C. difficile and enteric pathogens are negative. Continue with supportive care. 3. Hypokalemia/hypophosphatemia/hyponatremia Patient continues to have very suppressed potassium levels. Patient's phosphorus is now repleted. We will continue with aggressive potassium repletion. 80 mEq will be ordered along with a repeat lab. Anticipate 160-200 mEq of potassium will be needed today to get to appropriate levels. No EKG changes are appreciated. 4. 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 Oncology is currently following. 5. Severe protein calorie malnutrition/debility/recurrent hypoglycemia/bipolar/minimal tobacco abuse Complicates care, management, recovery and prognosis. Patient's mental status makes feeding difficult at this time. We will continue to monitor. Dietitian has been consulted and will be following. TIME: 31 minutes critical care time spent addressing patient's septic shock, acute kidney injury, electrolyte abnormalities, review of all data and collaboration with care team. (5:30 AM to 6:45 AM) Code Visit [id number]: [id number] Critical care first hour
--- NOTE | 2018-05-18 08:12 | PCM.PN.HOSP ---
Patient Problems: Active and Suspected Problems (Last Reviewed 05/16/18 @ 20:50 by Sohan Waddell MD) Acute kidney injury (Acute) Hypokalemia (Acute) Abnormal EKG (Acute) Hyponatremia (Acute) Nausea vomiting and diarrhea (Acute) Small cell lung cancer (Acute) Subjective: Patient is more awake and alert and talking coherent although which is low volume and slow to respond. On Levophed 5 mcg per minute, IV KCl supplement. Patient was seen by technical communication teacher and civil engineering intern. Patient had low-grade fever, temperature range from 99.5 -101.7. Blood pressure is 72/55. Heart rate in 100s. Urine output 2400 mL last 24 hours. 3 bowel movements Vitals/I&O's: Vital Signs Temp Pulse Resp BP Pulse Ox 100.4 F H 106 H 24 H 72/55 L 99 05/18/18 08:00 05/18/18 08:00 05/18/18 08:00 05/18/18 08:00 05/18/18 08:00 Oxygen Flow Rate (L/min) 2 Oxygen Delivery Method Room Air Weight: 120 lb 9.486 oz Body Mass Index (BMI) 19.5 Intake and Output for Last 24 Hours 05/16/18 05/17/18 05/18/18 23:59 23:59 23:59 Intake Total 512 / 512 1641 / 1641 2402 / 2402 Output Total 1600 / 1600 2400 / 2400 Balance 512 / 512 41 / 41 2 / 2 General: Alert, Cooperative, Lethargic HEENT: Atraumatic, PERRLA, EOMI, Normocephalic Oral: Moist Mucosa Neck: Supple, No JVD, Negative Carotid Bruits Lungs: Clear to auscultation, No rhonchi, No wheeze, No rales, Diminished Cardiovascular: Regular Rhythm, Normal S1, Normal S2, No murmurs, Tachycardic Abdomen: Bowel Sounds Present, Soft, Non Tender, Non-Distended Extremities: No edema, Capillary Refill Less than 3 Seconds Skin: No rashes, No breakdown Musculoskeletal: No Tenderness to Palpation of Joints or Extremities, Arthritic Changes, Cachexia, Muscle Wasting Neurological: Cranial nerves II-XII grossly intact, Neuro grossly intact, - - Generalized weakness of muscles. Detailed neurological assessment not possible Psych/Mental Status: Normal Affect, Appropriate Microbiology Past 72 Hours 05/16/18 21:30 Stool Enteric Bacteriology - Final 05/16/18 21:30 Stool C. difficile DNA Amplification - Final Laboratory Results 05/17/18 09:30: Urine Creatinine 25.90 05/17/18 09:30: Urine Chloride 93 05/17/18 09:30: Urine Potassium 28.0 05/17/18 09:30: Ur Random Sodium 69 05/17/18 11:14: POC Glucose 105 05/17/18 12:09: Specimen Type ART, Sample Site R Brachial, pH 7.36, Bicarbonate Actual 13.7 L, POC Total CO2 14, Base Excess -12 L, O2 Saturation 99, ABG pCO2 24.1 L, ABG pO2 123 H, O2 Delivery Device Nasal Can, Liter Flow 2.0, Blood Gas Notified Whom ICU , Blood Gas Notified Time 1207 05/17/18 12:45: Phosphorus 1.8 L 05/17/18 12:45: WBC 2.3 L, RBC 3.73 L, Hgb 10.4 L, Hct 27.9 L, MCV 74.8 L, MCH 27.9, MCHC 37.3 H, RDW 16.8 H, RDW Differential 46.1 H, Plt Count 164, MPV 8.3, Immature Gran % (Auto) 0.000, Neut % (Auto) 66.5, Lymph % (Auto) 23.9, Conway % (Auto) 6.1, Eos % (Auto) 3.5, Baso % (Auto) 0.0, Absolute Neuts (auto) 1.5 L, Absolute Lymphs (auto) 0.55 L, Total Counted Not Reportable, Platelet Estimate ADEQUATE, Hypochromasia RARE, Microcytosis 1+ 05/17/18 12:45: Sodium 137, Potassium 2.2 L*, Chloride 109 H, Carbon Dioxide 18.0 L, Anion Gap 10, BUN 20 H, Creatinine 1.22 H, Estim Creat Clear Calc 46.22, Est GFR (MDRD) Af Amer 59 L, Est GFR (MDRD) Non-Af 49 L, BUN/Creatinine Ratio 16.4, Glucose 67 L, Calcium 7.2 L 05/17/18 18:38: POC Glucose 119 H 05/18/18 00:59: POC Glucose 171 H 05/18/18 03:30: WBC 3.2 L, RBC 4.00 L, Hgb 11.6 L, Hct 29.8 L, MCV 74.5 L, MCH 29.0, MCHC 38.9 H, RDW 16.7 H, RDW Differential 44.2 H, Plt Count 212, MPV 8.9, Immature Gran % (Auto) 0.300, Neut % (Auto) 64.9, Lymph % (Auto) 25.0, Conway % (Auto) 6.3, Eos % (Auto) 3.2, Baso % (Auto) 0.3, Absolute Neuts (auto) 2.1, Absolute Lymphs (auto) 0.79 L, Total Counted Not Reportable, Differential Comment SCANNED 05/18/18 03:30: Sodium 140, Potassium 2.7 L*, Chloride 108 H, Carbon Dioxide 22.0, Anion Gap 10, BUN 10, Creatinine 1.25 H, Estim Creat Clear Calc 45.11, Est GFR (MDRD) Af Amer 57 L, Est GFR (MDRD) Non-Af 48 L, BUN/Creatinine Ratio 8.0 L, Glucose 158 H, Calcium 7.1 L, Phosphorus 2.7 05/18/18 06:26: POC Glucose 96 Current Medications Acetaminophen (Tylenol) 650 mg PO Q6H PRN PRN PRN Reason: Fever >101 Last Admin: 05/18/18 06:06 Dose: 650 mg Aspirin (Aspirin, Baby) 81 mg PO DAILY@0800 [facility] Last Admin: 05/18/18 08:10 Dose: Not Given Atorvastatin Calcium (Lipitor) 80 mg PO QHS [facility] Last Admin: 05/17/18 21:14 Dose: Not Given Chlorhexidine Gluconate () 1 each TOPICAL DAILY [facility] Last Admin: 05/18/18 03:37 Dose: 1 each Cyclobenzaprine HCl (Cyclobenzaprine Hcl) 5 mg PO TID PRN PRN Reason: ANXIETY Heparin Sodium (Beef Lung) (Heparin 500 Unit/5 Ml (100/Ml)) 500 unit IV UD PRN PRN Reason: HEPARIN FLUSH Heparin Sodium (Porcine) (Heparin Na) 5,000 unit SC Q8 [facility] Last Admin: 05/18/18 06:06 Dose: 5,000 unit Thiamine HCl 100 mg/ Sodium (Chloride) 51 mls @ 200 mls/hr IV DAILY [facility] Last Admin: 05/17/18 13:11 Dose: 200 mls/hr Norepinephrine Bitartrate 8 mg (/ Dextrose) 258 mls @ 9.68 mls/hr IV .[id number] [facility] Last Admin: 05/18/18 02:59 Dose: 9.68 mls/hr Vancomycin IV Pharmacy to Dose (1 ea/ Sodium Chloride) 500 mls @ 250 mls/hr IV X1 PRN; Protocol PRN Reason: Rx to Dose Meropenem 500 mg/ Sodium (Chloride) 60 mls @ 100 mls/hr IV Q8 [facility] Last Admin: 05/18/18 06:06 Dose: 100 mls/hr Vancomycin HCl () 500 mg in 100 mls @ 100 mls/hr IV Q12H [facility] Last Admin: 05/18/18 02:58 Dose: 100 mls/hr Potassium Chloride 40 meq/ (Sodium Chloride) 120 mls @ 100 mls/hr IV BOLUS X1 ONE Stop: 05/18/18 10:11 Last Admin: 05/18/18 08:11 Dose: 100 mls/hr Lorazepam (Ativan) 1 mg PO Q4H PRN PRN PRN Reason: ANXIETY Magnesium Hydroxide (Milk Of Magnesia) 30 ml PO DAILY PRN PRN Reason: Constipation Mirtazapine (Remeron) 7.5 mg PO QHS PRN PRN Reason: SLEEP Ondansetron HCl (Zofran) 8 mg PO Q8H PRN PRN PRN Reason: NAUSEA Ondansetron HCl (Zofran) 4 mg IV Q6H PRN PRN PRN Reason: NAUSEA/VOMITING Oxycodone HCl (Oxyir) 5 mg PO Q6H PRN PRN PRN Reason: PAIN Sodium Chloride () 10 ml IV UD PRN PRN Reason: VAD FLUSH Last Admin: 05/18/18 02:59 Dose: 10 ml Sodium Chloride () 10 ml IV UD PRN PRN Reason: VAD FLUSH Medical Necessity - Tobacco Use Smoking Status: Current every day smoker Tobacco Use: Cigarettes Assessment/Plan All Active Problems (Last Reviewed 05/16/18 @ 20:50 by Sohan Waddell MD) Acute kidney injury (Acute) Hypokalemia (Acute) Abnormal EKG (Acute) Hyponatremia (Acute) Nausea vomiting and diarrhea (Acute) Pulmonary embolism (Acute) Periodontal disease (Acute) Nausea & vomiting (Acute) Headache (Acute) Encounter for adjustment or management of vascular access device (Acute) Small cell lung cancer (Acute) Regional lymph node metastasis present (Acute) Lung metastasis (Acute) There is a 52 female with history of COPD, right side limited small cell cancer on chemoradiation before and now on immunotherapy, follows Dr. Giraldo in [facility] was admitted yesterday night for 10 days history of nausea, vomiting, diarrhea, anorexia and poor oral intake, lethargic with altered mental status and severe electrolyte imbalance to stepdown. The patient was initially resuscitated with IV fluid normal saline, electrolyte repletion and bicarb drip for severe metabolic acidosis. Patient was later transferred to ICU. Discussed with the oncologist team and Dr. Mckeon. 1. Septic shock of unclear etiology: Patient is currently admitted in ICU. C. difficile and enteric bacteriology panel are negative. Blood culture drawn on 05/16 and then in ICU, 05/17 are pending. On IV fluid resuscitation. Started on Levophed drip. Currently on IV vancomycin and meropenem for broad-spectrum coverage. 2. Severe electrolyte imbalance with high anion gap metabolic acidosis with compensatory respiratory alkalosis: Hypokalemia, hypophosphatemia and hyponatremia: Potassium was 2.0. Patient still significantly hypokalemic 2.7 despite high dose of replacement. Phosphorus normal. Sodium normal. Oncologist think electrolyte imbalance may be secondary to endocrinopathy due to immunotherapy Fanconi syndrome as per civil engineering intern. But patient completed 4 cycles nivolumab/ipilimumab, last dose on 05/05/[address] [facility]. 3. Acute kidney injury most probably secondary to hypovolemia/prerenal etiology: Monitor creatinine and electrolytes as mentioned above. Childcare Director consult reviewed. Creatinine remains stable 1.25, BUN 10. Urine electrolytes 6 sodium 69, potassium 28, chloride 93, creatinine 25.9. 4. Abnormal EKG: Patient had ST depression in inferolateral leads and slight ST elevation in aVR. Discussed with Dr. Blue and he thinks there is no coronary event as patient troponins are negative. It may be secondary to electrolyte imbalance: 5. Right-sided small cell lung cancer with history of multiple chemoradiation, currently immunotherapy ipilimumab and nivolumab at [facility] under the care of Dr. Cabral. Discussed with the oncologist Radha FRIEDMAN. Severe protein calorie malnutrition: Desktop Operator consult. 6. 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 Multiple comorbidities complicates the present care and expect difficult and delay recovery. Poor prognosis. DVT prophylaxis: On heparin 500 subcutaneous 3 times daily. Microbiology Past 72 Hours 05/16/18 21:30 Stool Enteric Bacteriology - Final 05/16/18 21:30 Stool C. difficile DNA Amplification - Final Laboratory Results 05/17/18 09:30: Urine Creatinine 25.90 05/17/18 09:30: Urine Chloride 93 05/17/18 09:30: Urine Potassium 28.0 05/17/18 09:30: Ur Random Sodium 69 05/17/18 11:14: POC Glucose 105 05/17/18 12:09: Specimen Type ART, Sample Site R Brachial, pH 7.36, Bicarbonate Actual 13.7 L, POC Total CO2 14, Base Excess -12 L, O2 Saturation 99, ABG pCO2 24.1 L, ABG pO2 123 H, O2 Delivery Device Nasal Can, Liter Flow 2.0, Blood Gas Notified Whom ICU MD, Blood Gas Notified Time 1207 05/17/18 12:45: Phosphorus 1.8 L 1 05/18/18 03:30: WBC 3.2 L, RBC 4.00 L, Hgb 11.6 L, Hct 29.8 L, MCV 74.5 L, MCH 29.0, MCHC 38.9 H, RDW 16.7 H, RDW Differential 44.2 H, Plt Count 212, MPV 8.9, Immature Gran % (Auto) 0.300, Neut % (Auto) 64.9, Lymph % (Auto) 25.0, Conway % (Auto) 6.3, Eos % (Auto) 3.2, Baso % (Auto) 0.3, Absolute Neuts (auto) 2.1, Absolute Lymphs (auto) 0.79 L, Total Counted Not Reportable, Differential Comment SCANNED 05/18/18 03:30: Sodium 140, Potassium 2.7 L*, Chloride 108 H, Carbon Dioxide 22.0, Anion Gap 10, BUN 10, Creatinine 1.25 H, Estim Creat Clear Calc 45.11, Est GFR (MDRD) Af Amer 57 L, Est GFR (MDRD) Non-Af 48 L, BUN/Creatinine Ratio 8.0 L, Glucose 158 H, Calcium 7.1 L, Phosphorus 2.7 05/18/18 06:26: POC Glucose 96 Clinical Impression(s) from Imaging Studies Chest X-Ray 05/16/18 17:35 IMPRESSION: Stable x-ray examination of the chest since CT chest/thorax November 17, 2017, as described. Chest X-Ray 05/17/18 12:21 IMPRESSION: 1. Stable chronic right perihilar stranding. 2. Subcentimeter faint nodular density projecting in left base is likely an artifact. 3. Right chest wall MediPort again noted. Active Medications Acetaminophen (Tylenol) 650 mg PO Q6H PRN PRN PRN Reason: Fever >101 Last Admin: 05/18/18 06:06 Dose: 650 mg Aspirin (Aspirin, Baby) 81 mg PO DAILY@0800 [facility] Last Admin: 05/18/18 08:10 Dose: Not Given Atorvastatin Calcium (Lipitor) 80 mg PO QHS [facility] Last Admin: 05/17/18 21:14 Dose: Not Given Chlorhexidine Gluconate () 1 each TOPICAL DAILY [facility] Last Admin: 05/18/18 03:37 Dose: 1 each Cyclobenzaprine HCl (Cyclobenzaprine Hcl) 5 mg PO TID PRN PRN Reason: ANXIETY Heparin Sodium (Beef Lung) (Heparin 500 Unit/5 Ml (100/Ml)) 500 unit IV UD PRN PRN Reason: HEPARIN FLUSH Heparin Sodium (Porcine) (Heparin Na) 5,000 unit SC Q8 [facility] Last Admin: 05/18/18 06:06 Dose: 5,000 unit Thiamine HCl 100 mg/ Sodium (Chloride) 51 mls @ 200 mls/hr IV DAILY [facility] Last Admin: 05/17/18 13:11 Dose: 200 mls/hr Norepinephrine Bitartrate 8 mg (/ Dextrose) 258 mls @ 9.68 mls/hr IV .[id number] [facility] Last Admin: 05/18/18 02:59 Dose: 9.68 mls/hr Vancomycin IV Pharmacy to Dose (1 ea/ Sodium Chloride) 500 mls @ 250 mls/hr IV X1 PRN; Protocol PRN Reason: Rx to Dose Meropenem 500 mg/ Sodium (Chloride) 60 mls @ 100 mls/hr IV Q8 [facility] Last Admin: 05/18/18 06:06 Dose: 100 mls/hr Vancomycin HCl () 500 mg in 100 mls @ 100 mls/hr IV Q12H [facility] Last Admin: 05/18/18 02:58 Dose: 100 mls/hr Potassium Chloride 40 meq/ (Sodium Chloride) 120 mls @ 100 mls/hr IV BOLUS X1 ONE Stop: 05/18/18 10:11 Last Admin: 05/18/18 08:11 Dose: 100 mls/hr Lorazepam (Ativan) 1 mg PO Q4H PRN PRN PRN Reason: ANXIETY Magnesium Hydroxide (Milk Of Magnesia) 30 ml PO DAILY PRN PRN Reason: Constipation Mirtazapine (Remeron) 7.5 mg PO QHS PRN PRN Reason: SLEEP Ondansetron HCl (Zofran) 8 mg PO Q8H PRN PRN PRN Reason: NAUSEA Ondansetron HCl (Zofran) 4 mg IV Q6H PRN PRN PRN Reason: NAUSEA/VOMITING Oxycodone HCl (Oxyir) 5 mg PO Q6H PRN PRN PRN Reason: PAIN Sodium Chloride () 10 ml IV UD PRN PRN Reason: VAD FLUSH Last Admin: 05/18/18 02:59 Dose: 10 ml Sodium Chloride () 10 ml IV UD PRN PRN Reason: VAD FLUSH Code Visit Inpatient E&M: [id number] [place] [id number]
--- NOTE | 2018-05-18 08:16 | PN_ITS ---
Patient Problems: Active and Suspected Problems (Last Reviewed 05/16/18 @ 20:50 by Sohan Waddell MD) Acute kidney injury (Acute) Hypokalemia (Acute) Abnormal EKG (Acute) Hyponatremia (Acute) Nausea vomiting and diarrhea (Acute) Small cell lung cancer (Acute) Subjective: Patient is more awake and alert and talking coherent although which is low volume and slow to respond. On Levophed 5 mcg per minute, IV KCl supplement. Patient was seen by cardiac catheterization technician and supervisor pole yard. Patient had low-grade fever, temperature range from 99.5 -101.7. Blood pressure is 72/55. Heart rate in 100s. Urine output 2400 mL last 24 hours. 3 bowel movements Vitals/I&O's: Vital Signs Temp Pulse Resp BP Pulse Ox 100.4 F H 106 H 24 H 72/55 L 99 05/18/18 08:00 05/18/18 08:00 05/18/18 08:00 05/18/18 08:00 05/18/18 08:00 Oxygen Flow Rate (L/min) 2 Oxygen Delivery Method Room Air Weight: 120 lb 9.486 oz Body Mass Index (BMI) 19.5 Intake and Output for Last 24 Hours 05/16/18 05/17/18 05/18/18 23:59 23:59 23:59 Intake Total 512 / 512 1641 / 1641 2402 / 2402 Output Total 1600 / 1600 2400 / 2400 Balance 512 / 512 41 / 41 2 / 2 General: Alert, Cooperative, Lethargic HEENT: Atraumatic, PERRLA, EOMI, Normocephalic Oral: Moist Mucosa Neck: Supple, No JVD, Negative Carotid Bruits Lungs: Clear to auscultation, No rhonchi, No wheeze, No rales, Diminished Cardiovascular: Regular Rhythm, Normal S1, Normal S2, No murmurs, Tachycardic Abdomen: Bowel Sounds Present, Soft, Non Tender, Non-Distended Extremities: No edema, Capillary Refill Less than 3 Seconds Skin: No rashes, No breakdown Musculoskeletal: No Tenderness to Palpation of Joints or Extremities, Arthritic Changes, Cachexia, Muscle Wasting Neurological: Cranial nerves II-XII grossly intact, Neuro grossly intact, - - Generalized weakness of muscles. Detailed neurological assessment not possible Psych/Mental Status: Normal Affect, Appropriate Microbiology Past 72 Hours 05/16/18 21:30 Stool Enteric Bacteriology - Final 05/16/18 21:30 Stool C. difficile DNA Amplification - Final Laboratory Results 05/17/18 09:30: Urine Creatinine 25.90 05/17/18 09:30: Urine Chloride 93 05/17/18 09:30: Urine Potassium 28.0 05/17/18 09:30: Ur Random Sodium 69 05/17/18 11:14: POC Glucose 105 05/17/18 12:09: Specimen Type ART, Sample Site R Brachial, pH 7.36, Bicarbonate Actual 13.7 L, POC Total CO2 14, Base Excess -12 L, O2 Saturation 99, ABG pCO2 24.1 L, ABG pO2 123 H, O2 Delivery Device Nasal Can, Liter Flow 2.0, Blood Gas Notified Whom ICU , Blood Gas Notified Time 1207 05/17/18 12:45: Phosphorus 1.8 L 05/17/18 12:45: WBC 2.3 L, RBC 3.73 L, Hgb 10.4 L, Hct 27.9 L, MCV 74.8 L, MCH 27.9, MCHC 37.3 H, RDW 16.8 H, RDW Differential 46.1 H, Plt Count 164, MPV 8.3, Immature Gran % (Auto) 0.000, Neut % (Auto) 66.5, Lymph % (Auto) 23.9, [place] % (Auto) 6.1, Eos % (Auto) 3.5, Baso % (Auto) 0.0, Absolute Neuts (auto) 1.5 L, Absolute Lymphs (auto) 0.55 L, Total Counted Not Reportable, Platelet Estimate ADEQUATE, Hypochromasia RARE, Microcytosis 1+ 05/17/18 12:45: Sodium 137, Potassium 2.2 L*, Chloride 109 H, Carbon Dioxide 18.0 L, Anion Gap 10, BUN 20 H, Creatinine 1.22 H, Estim Creat Clear Calc 46.22, Est GFR (MDRD) Af Amer 59 L, Est GFR (MDRD) Non-Af 49 L, BUN/Creatinine Ratio 16.4, Glucose 67 L, Calcium 7.2 L 05/17/18 18:38: POC Glucose 119 H 05/18/18 00:59: POC Glucose 171 H 05/18/18 03:30: WBC 3.2 L, RBC 4.00 L, Hgb 11.6 L, Hct 29.8 L, MCV 74.5 L, MCH 29.0, MCHC 38.9 H, RDW 16.7 H, RDW Differential 44.2 H, Plt Count 212, MPV 8.9, Immature Gran % (Auto) 0.300, Neut % (Auto) 64.9, Lymph % (Auto) 25.0, [place] % (Auto) 6.3, Eos % (Auto) 3.2, Baso % (Auto) 0.3, Absolute Neuts (auto) 2.1, Absolute Lymphs (auto) 0.79 L, Total Counted Not Reportable, Differential Comment SCANNED 05/18/18 03:30: Sodium 140, Potassium 2.7 L*, Chloride 108 H, Carbon Dioxide 22.0, Anion Gap 10, BUN 10, Creatinine 1.25 H, Estim Creat Clear Calc 45.11, Est GFR (MDRD) Af Amer 57 L, Est GFR (MDRD) Non-Af 48 L, BUN/Creatinine Ratio 8.0 L, Glucose 158 H, Calcium 7.1 L, Phosphorus 2.7 05/18/18 06:26: POC Glucose 96 Current Medications Acetaminophen (Tylenol) 650 mg PO Q6H PRN PRN PRN Reason: Fever >101 Last Admin: 05/18/18 06:06 Dose: 650 mg Aspirin (Aspirin, Baby) 81 mg PO DAILY@0800 [facility] Last Admin: 05/18/18 08:10 Dose: Not Given Atorvastatin Calcium (Lipitor) 80 mg PO QHS [facility] Last Admin: 05/17/18 21:14 Dose: Not Given Chlorhexidine Gluconate () 1 each TOPICAL DAILY [facility] Last Admin: 05/18/18 03:37 Dose: 1 each Cyclobenzaprine HCl (Cyclobenzaprine Hcl) 5 mg PO TID PRN PRN Reason: ANXIETY Heparin Sodium (Beef Lung) (Heparin 500 Unit/5 Ml (100/Ml)) 500 unit IV UD PRN PRN Reason: HEPARIN FLUSH Heparin Sodium (Porcine) (Heparin Na) 5,000 unit SC Q8 [facility] Last Admin: 05/18/18 06:06 Dose: 5,000 unit Thiamine HCl 100 mg/ Sodium (Chloride) 51 mls @ 200 mls/hr IV DAILY [facility] Last Admin: 05/17/18 13:11 Dose: 200 mls/hr Norepinephrine Bitartrate 8 mg (/ Dextrose) 258 mls @ 9.68 mls/hr IV .[id number] [facility] Last Admin: 05/18/18 02:59 Dose: 9.68 mls/hr Vancomycin IV Pharmacy to Dose (1 ea/ Sodium Chloride) 500 mls @ 250 mls/hr IV X1 PRN; Protocol PRN Reason: Rx to Dose Meropenem 500 mg/ Sodium (Chloride) 60 mls @ 100 mls/hr IV Q8 [facility] Last Admin: 05/18/18 06:06 Dose: 100 mls/hr Vancomycin HCl () 500 mg in 100 mls @ 100 mls/hr IV Q12H [facility] Last Admin: 05/18/18 02:58 Dose: 100 mls/hr Potassium Chloride 40 meq/ (Sodium Chloride) 120 mls @ 100 mls/hr IV BOLUS X1 ONE Stop: 05/18/18 10:11 Last Admin: 05/18/18 08:11 Dose: 100 mls/hr Lorazepam (Ativan) 1 mg PO Q4H PRN PRN PRN Reason: ANXIETY Magnesium Hydroxide (Milk Of Magnesia) 30 ml PO DAILY PRN PRN Reason: Constipation Mirtazapine (Remeron) 7.5 mg PO QHS PRN PRN Reason: SLEEP Ondansetron HCl (Zofran) 8 mg PO Q8H PRN PRN PRN Reason: NAUSEA Ondansetron HCl (Zofran) 4 mg IV Q6H PRN PRN PRN Reason: NAUSEA/VOMITING Oxycodone HCl (Oxyir) 5 mg PO Q6H PRN PRN PRN Reason: PAIN Sodium Chloride () 10 ml IV UD PRN PRN Reason: VAD FLUSH Last Admin: 05/18/18 02:59 Dose: 10 ml Sodium Chloride () 10 ml IV UD PRN PRN Reason: VAD FLUSH Medical Necessity - Tobacco Use Smoking Status: Current every day smoker Tobacco Use: Cigarettes Assessment/Plan All Active Problems (Last Reviewed 05/16/18 @ 20:50 by Sohan Waddell MD) Acute kidney injury (Acute) Hypokalemia (Acute) Abnormal EKG (Acute) Hyponatremia (Acute) Nausea vomiting and diarrhea (Acute) Pulmonary embolism (Acute) Periodontal disease (Acute) Nausea & vomiting (Acute) Headache (Acute) Encounter for adjustment or management of vascular access device (Acute) Small cell lung cancer (Acute) Regional lymph node metastasis present (Acute) Lung metastasis (Acute) There is a 52 female with history of COPD, right side limited small cell cancer on chemoradiation before and now on immunotherapy, follows Dr. Giraldo in [facility] was admitted yesterday night for 10 days history of nausea, vomiting, diarrhea, anorexia and poor oral intake, lethargic with altered mental status and severe electrolyte imbalance to stepdown. The patient was initially resuscitated with IV fluid normal saline, electrolyte repletion and bicarb drip for severe metabolic acidosis. Patient was later transferred to ICU. Discussed with the oncologist team and Dr. Mckeon. 1. Septic shock of unclear etiology: Patient is currently admitted in ICU. C. difficile and enteric bacteriology panel are negative. Blood culture drawn on 05/16 and then in ICU, 05/17 are pending. On IV fluid resuscitation. Started on Levophed drip. Currently on IV vancomycin and meropenem for broad-spectrum coverage. 2. Severe electrolyte imbalance with high anion gap metabolic acidosis with compensatory respiratory alkalosis: Hypokalemia, hypophosphatemia and hyponatremia: Potassium was 2.0. Patient still significantly hypokalemic 2.7 despite high dose of replacement. Phosphorus normal. Sodium normal. Oncologist think electrolyte imbalance may be secondary to endocrinopathy due to immunotherapy Fanconi syndrome as per supervisor pole yard. But patient completed 4 cycles nivolumab/ipilimumab, last dose on 05/05/18 at the [facility]. 3. Acute kidney injury most probably secondary to hypovolemia/prerenal etiology: Monitor creatinine and electrolytes as mentioned above. Handbag Finisher consult reviewed. Creatinine remains stable 1.25, BUN 10. Urine electrolytes 6 sodium 69, potassium 28, chloride 93, creatinine 25.9. 4. Abnormal EKG: Patient had ST depression in inferolateral leads and slight ST elevation in aVR. Discussed with Dr. Blue and he thinks there is no coronary event as patient troponins are negative. It may be secondary to electrolyte imbalance: 5. Right-sided small cell lung cancer with history of multiple chemoradiation, currently immunotherapy ipilimumab and nivolumab at [facility] under the care of Dr. Cabral. Discussed with the oncologist Radha FRIEDMAN. Severe protein calorie malnutrition: Child Care Associate Teacher consult. 6. 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 Multiple comorbidities complicates the present care and expect difficult and delay recovery. Poor prognosis. DVT prophylaxis: On heparin 500 subcutaneous 3 times daily. Microbiology Past 72 Hours 05/16/18 21:30 Stool Enteric Bacteriology - Final 05/16/18 21:30 Stool C. difficile DNA Amplification - Final Laboratory Results 05/17/18 09:30: Urine Creatinine 25.90 05/17/18 09:30: Urine Chloride 93 05/17/18 09:30: Urine Potassium 28.0 05/17/18 09:30: Ur Random Sodium 69 05/17/18 11:14: POC Glucose 105 05/17/18 12:09: Specimen Type ART, Sample Site R Brachial, pH 7.36, Bicarbonate Actual 13.7 L, POC Total CO2 14, Base Excess -12 L, O2 Saturation 99, ABG pCO2 24.1 L, ABG pO2 123 H, O2 Delivery Device Nasal Can, Liter Flow 2.0, Blood Gas Notified Whom ICU MD, Blood Gas Notified Time 1207 05/17/18 12:45: Phosphorus 1.8 L 1 05/18/18 03:30: WBC 3.2 L, RBC 4.00 L, Hgb 11.6 L, Hct 29.8 L, MCV 74.5 L, MCH 29.0, MCHC 38.9 H, RDW 16.7 H, RDW Differential 44.2 H, Plt Count 212, MPV 8.9, Immature Gran % (Auto) 0.300, Neut % (Auto) 64.9, Lymph % (Auto) 25.0, [place] % (Auto) 6.3, Eos % (Auto) 3.2, Baso % (Auto) 0.3, Absolute Neuts (auto) 2.1, Absolute Lymphs (auto) 0.79 L, Total Counted Not Reportable, Differential Comment SCANNED 05/18/18 03:30: Sodium 140, Potassium 2.7 L*, Chloride 108 H, Carbon Dioxide 22.0, Anion Gap 10, BUN 10, Creatinine 1.25 H, Estim Creat Clear Calc 45.11, Est GFR (MDRD) Af Amer 57 L, Est GFR (MDRD) Non-Af 48 L, BUN/Creatinine Ratio 8.0 L, Glucose 158 H, Calcium 7.1 L, Phosphorus 2.7 05/18/18 06:26: POC Glucose 96 Clinical Impression(s) from Imaging Studies Chest X-Ray 05/16/18 17:35 IMPRESSION: Stable x-ray examination of the chest since CT chest/thorax November 17, 2017, as described. Chest X-Ray 05/17/18 12:21 IMPRESSION: 1. Stable chronic right perihilar stranding. 2. Subcentimeter faint nodular density projecting in left base is likely an artifact. 3. Right chest wall MediPort again noted. Active Medications Acetaminophen (Tylenol) 650 mg PO Q6H PRN PRN PRN Reason: Fever >101 Last Admin: 05/18/18 06:06 Dose: 650 mg Aspirin (Aspirin, Baby) 81 mg PO DAILY@0800 [facility] Last Admin: 05/18/18 08:10 Dose: Not Given Atorvastatin Calcium (Lipitor) 80 mg PO QHS [facility] Last Admin: 05/17/18 21:14 Dose: Not Given Chlorhexidine Gluconate () 1 each TOPICAL DAILY [facility] Last Admin: 05/18/18 03:37 Dose: 1 each Cyclobenzaprine HCl (Cyclobenzaprine Hcl) 5 mg PO TID PRN PRN Reason: ANXIETY Heparin Sodium (Beef Lung) (Heparin 500 Unit/5 Ml (100/Ml)) 500 unit IV UD PRN PRN Reason: HEPARIN FLUSH Heparin Sodium (Porcine) (Heparin Na) 5,000 unit SC Q8 [facility] Last Admin: 05/18/18 06:06 Dose: 5,000 unit Thiamine HCl 100 mg/ Sodium (Chloride) 51 mls @ 200 mls/hr IV DAILY [facility] Last Admin: 05/17/18 13:11 Dose: 200 mls/hr Norepinephrine Bitartrate 8 mg (/ Dextrose) 258 mls @ 9.68 mls/hr IV .[id number] [facility] Last Admin: 05/18/18 02:59 Dose: 9.68 mls/hr Vancomycin IV Pharmacy to Dose (1 ea/ Sodium Chloride) 500 mls @ 250 mls/hr IV X1 PRN; Protocol PRN Reason: Rx to Dose Meropenem 500 mg/ Sodium (Chloride) 60 mls @ 100 mls/hr IV Q8 [facility] Last Admin: 05/18/18 06:06 Dose: 100 mls/hr Vancomycin HCl () 500 mg in 100 mls @ 100 mls/hr IV Q12H [facility] Last Admin: 05/18/18 02:58 Dose: 100 mls/hr Potassium Chloride 40 meq/ (Sodium Chloride) 120 mls @ 100 mls/hr IV BOLUS X1 ONE Stop: 05/18/18 10:11 Last Admin: 05/18/18 08:11 Dose: 100 mls/hr Lorazepam (Ativan) 1 mg PO Q4H PRN PRN PRN Reason: ANXIETY Magnesium Hydroxide (Milk Of Magnesia) 30 ml PO DAILY PRN PRN Reason: Constipation Mirtazapine (Remeron) 7.5 mg PO QHS PRN PRN Reason: SLEEP Ondansetron HCl (Zofran) 8 mg PO Q8H PRN PRN PRN Reason: NAUSEA Ondansetron HCl (Zofran) 4 mg IV Q6H PRN PRN PRN Reason: NAUSEA/VOMITING Oxycodone HCl (Oxyir) 5 mg PO Q6H PRN PRN PRN Reason: PAIN Sodium Chloride () 10 ml IV UD PRN PRN Reason: VAD FLUSH Last Admin: 05/18/18 02:59 Dose: 10 ml Sodium Chloride () 10 ml IV UD PRN PRN Reason: VAD FLUSH Code Visit Inpatient E&M: [id number] [place] [id number]
[2018-05-18] MEDS: Famotidine 20mg IV Push Syringe Q24 300 MG IV (10:37)
--- NOTE | 2018-05-18 11:56 | PCM.PN.REN ---
Patient Problems: Active and Suspected Problems (Last Reviewed 05/16/18 @ 20:50 by Sohna Waddell MD) Acute kidney injury (Acute) Hypokalemia (Acute) Abnormal EKG (Acute) Hyponatremia (Acute) Nausea vomiting and diarrhea (Acute) Small cell lung cancer (Acute) Subjective: no new events - Physical Exam General: Alert, Oriented x3, Cooperative HEENT: Atraumatic, PERRLA, EOMI, Normocephalic Neck: Supple, No JVD, Negative Carotid Bruits Lungs: Clear to auscultation, Normal air movement Cardiovascular: Regular rate, No murmurs Abdomen: Bowel Sounds Present, Soft, Non Tender Extremities: No edema, Capillary Refill Less than 3 Seconds Skin: No rashes, No breakdown Musculoskeletal: No Tenderness to Palpation of Joints or Extremities Neurological: Cranial nerves II-XII grossly intact Psych/Mental Status: Normal Affect, Appropriate Vital Signs Temp Pulse Resp BP Pulse Ox 99.2 F H 106 H 27 H 75/63 L 99 05/18/18 11:00 05/18/18 11:09 05/18/18 11:00 05/18/18 11:00 05/18/18 11:00 Oxygen Flow Rate (L/min) 2 Oxygen Delivery Method Room Air Weight: 54.7 kg Body Mass Index (BMI) 19.5 Intake and Output for Last 24 Hours 05/16/18 05/17/18 05/18/18 23:59 23:59 23:59 Intake Total 512 / 512 1641 / 1641 2402 / 2402 Output Total 1600 / 1600 2400 / 2400 Balance 512 / 512 41 / 41 2 / 2 Microbiology Past 72 Hours 05/16/18 18:00 Urine Culture - Final Urine, Clean Catch Culture exhibits no growth. 05/16/18 21:30 Enteric Bacteriology - Final Stool 05/16/18 21:30 C. difficile DNA Amplification - Final Stool Laboratory Tests Past 24 Hrs 05/17/18 05/17/18 05/17/18 12:09 12:45 12:45 WBC 2.3 L RBC 3.73 L Hgb 10.4 L Hct 27.9 L MCV 74.8 L MCH 27.9 MCHC 37.3 H RDW 16.8 H RDW Differential 46.1 H Plt Count 164 MPV 8.3 Immature Gran % (Auto) 0.000 Neut % (Auto) 66.5 Lymph % (Auto) 23.9 [place] % (Auto) 6.1 Eos % (Auto) 3.5 Baso % (Auto) 0.0 Absolute Neuts (auto) 1.5 L Absolute Lymphs (auto) 0.55 L Total Counted Not Reportable Differential Comment Platelet Estimate ADEQUATE Hypochromasia RARE Microcytosis 1+ Specimen Type ART Sample Site R Brachial pH 7.36 Bicarbonate Actual 13.7 L POC Total CO2 14 Base Excess -12 L O2 Saturation 99 ABG pCO2 24.1 L ABG pO2 123 H O2 Delivery Device Nasal Can Liter Flow 2.0 Blood Gas Notified Whom ICU MD Blood Gas Notified Time 1207 Sodium Potassium Chloride Carbon Dioxide Anion Gap BUN Creatinine Estim Creat Clear Calc Est GFR (MDRD) Af Amer Est GFR (MDRD) Non-Af BUN/Creatinine Ratio Glucose Calcium Phosphorus 1.8 L 05/17/18 05/18/18 05/18/18 12:45 03:30 03:30 WBC 3.2 L RBC 4.00 L Hgb 11.6 L Hct 29.8 L MCV 74.5 L MCH 29.0 MCHC 38.9 H RDW 16.7 H RDW Differential 44.2 H Plt Count 212 MPV 8.9 Immature Gran % (Auto) 0.300 Neut % (Auto) 64.9 Lymph % (Auto) 25.0 [place] % (Auto) 6.3 Eos % (Auto) 3.2 Baso % (Auto) 0.3 Absolute Neuts (auto) 2.1 Absolute Lymphs (auto) 0.79 L Total Counted Not Reportable Differential Comment SCANNED Platelet Estimate Hypochromasia Microcytosis Specimen Type Sample Site pH Bicarbonate Actual POC Total CO2 Base Excess O2 Saturation ABG pCO2 ABG pO2 O2 Delivery Device Liter Flow Blood Gas Notified Whom Blood Gas Notified Time Sodium 137 140 Potassium 2.2 L* 2.7 L* Chloride 109 H 108 H Carbon Dioxide 18.0 L 22.0 Anion Gap 10 10 BUN 20 H 10 Creatinine 1.22 H 1.25 H Estim Creat Clear Calc 46.22 45.11 Est GFR (MDRD) Af Amer 59 L 57 L Est GFR (MDRD) Non-Af 49 L 48 L BUN/Creatinine Ratio 16.4 8.0 L Glucose 67 L 158 H Calcium 7.2 L 7.1 L Phosphorus 2.7 POC Glucose 05/18/18 05/18/18 05/17/18 06:26 00:59 18:38 POC Glucose 96 171 H 119 H Medical Necessity - Tobacco Use Smoking Status: Current every day smoker Tobacco Use: Cigarettes Assessment/Plan All Active Problems (Last Reviewed 05/16/18 @ 20:50 by Sohan Waddell MD) Acute kidney injury (Acute) Hypokalemia (Acute) Abnormal EKG (Acute) Hyponatremia (Acute) Nausea vomiting and diarrhea (Acute) Pulmonary embolism (Acute) Periodontal disease (Acute) Nausea & vomiting (Acute) Headache (Acute) Encounter for adjustment or management of vascular access device (Acute) Small cell lung cancer (Acute) Regional lymph node metastasis present (Acute) Lung metastasis (Acute) MEAGAN. likely related to volume depletion. Creatinine is better, urine output is better Hypokalemia Hypophosphatemia Acidosis normal serum magnesium Could be part of fanconis syndrome related to cisplatin or electrolyte depletion. Opdivo is not known to cause fanconis syndrome. bicarbonate normal phor normal K better, more repletion today Hyponatremia. likely hypovolemic. better d/w Dr Mckeon
[2018-05-18 12:41] LABS: Bedside Glucose 112 mg/dL (70-110)
[2018-05-18 12:54] LABS: Magnesium 1.4 mg/dL (1.6-2.6)
[2018-05-18 13:03] LABS: Potassium 2.3 mmol/L (3.5-5.1)
--- NOTE | 2018-05-18 15:11 | CASEMGMT ---
RN CM Assessment. PCP: Dr. Iverson Pharmacy: [facility], [place] DME: none -Intro role of CM to patient in room. Noted lethargy, but awakens to questions, slow to respond. Pt answered that she bathes @ sink, did not use DME @ home, either drove self or friend drove to appointments and pt stated she drove self to grocery store, pharmacy. -Attempted call to her friend Brian. Message machine was full, could not leave message. -No Home Health or aide assistance @ home -PT/OT evaluations are pending. Pt remains in ICU on Norepi gtt, PT/OT deferred @ this time. -anticipate pt may need SNF on dc-will continue to follow and assess dc needs. Yamil PHILIPN RN ACM
[2018-05-18] MEDS: Acetaminophen 650 MG Suppository RECTAL (20:18)
[2018-05-18] MEDS: Menthol/Lanolin/Calamine/Znox 113 GM Tube 1 APPLIC TOPICAL (21:24)
[2018-05-18 23:36] LABS: Bedside Glucose 91 mg/dL (70-110)
[2018-05-19] VITALS (48 sets, daily range): BP systolic 69–115; BP diastolic 46–88; PULSE 92–132; RESP 13–34; TEMP 36.1–38.6; O2SAT 96–100
[2018-05-19 03:47] LABS: Anion Gap 11 (5-15); BUN 8 mg/dL (7-18); BUN/Creat Ratio 6.1 RATIO (10-20); Calcium,Total 7.6 mg/dL (8.5-10.1); Chloride 114 mmol/L (98-107); Creatinine, Serum 1.31 mg/dL (0.55-1.02); EST Glomerular Filtration Rate 45 mL/min (>60); Est Glom Filt Rate - Afr Amer 54 mL/min (>60); Estimated Creatinine Clearance 42.89 ml/min; Glucose 82 mg/dL (74-106); Potassium 2.8 mmol/L (3.5-5.1); Sodium Level 143 mmol/L (136-145)
[2018-05-19] MEDS: Vancomycin IV 500 MG/100 ML BAG 100 MG IV ×2 (04:00→15:07)
[2018-05-19] MEDS: CHLORHEXIDINE GLUC 2% CLOTH 1 EACH TOWELETTE TOPICAL (04:00)
[2018-05-19] MEDS: Ondansetron 4 MG/2 ML Vial IV (04:05)
[2018-05-19] MEDS: 0.9% NaCl VAD Flush 10 ML IV ×2 (04:05→06:21)
[2018-05-19 04:22] LABS: Absolute Lymphocyte Count 0.84 X10^3/ul (0.83-4.51); Absolute Neutrophil Count 2.7 X10^3/uL (2.0-7.7); Basophil# 0.01 X10^3/uL; Basophil% 0.3 % (0-1); Eosinophil# 0.11 X10^3/uL; Eosinophils% 2.9 % (0-5); Hematocrit 33.6 % (37-47); Lymphocyte # 0.84 X10^3/ul (4.0); Mean Corpuscular Volume 76.4 fL (81-99); Mean Platelet Vol. 9.1 fl (6.2-12.0); Monocyte# 0.16 X10^3/uL; Monocyte% 4.2 % (0-10); Neutrophil # 2.69 X10^3/uL (2.7-7.7); Neutrophil % 70.6 % (47-70); Platelet Count 183 K/mm3 (150-450); RBC Distribution Width CV 17.3 % (11.6-14.6); RBC Distribution Width SD 48.4 fl (35.1-43.9); White Blood Count 3.8 K/mm3 (4.4-11.0)
[2018-05-19 04:30] LABS: Magnesium 3.5 mg/dL (1.6-2.6); Phosphorus 3.5 mg/dL (2.5-4.9)
[2018-05-19 04:41] LABS: Mean Corp Hgb Conc 35.7 g/gl (32-36); Mean Corpuscular Hgb 27.3 pg (27.0-32.0)
[2018-05-19 04:42] LABS: Differential Indicated SCAN CRITERIA MET; POSITIVE COUNT YES; POSITIVE DIFFERENTIAL NO; POSITIVE MORPHOLOGY NO
[2018-05-19 04:54] LABS: Vancomycin, Trough Level 18.9 ug/mL (5.0-15.0)
--- NOTE | 2018-05-19 05:03 | PCM.RX.CS ---
Consult Pharmacy has been consulted to manage selected antiobiotic: Vancomycin Type of Consult: Follow-up Suspected Infection: Sepsis Prior Doses of Antibiotics Received/Current Regimen: Medications Vancomycin HCl () 500 mg in 100 mls @ 100 mls/hr IV Q12H [facility] Last Admin: 05/19/18 04:00 Dose: 100 mls/hr Labs: Sodium 143 mmol/L (136-145) 05/19/18 03:15 Potassium 2.8 mmol/L (3.5-5.1) L 05/19/18 03:15 Chloride 114 mmol/L (98-107) H 05/19/18 03:15 Carbon Dioxide 18.0 mmol/L (21.0-32.0) L 05/19/18 03:15 Anion Gap 11 (5-15) 05/19/18 03:15 BUN 8 mg/dL (7-18) 05/19/18 03:15 Creatinine 1.31 mg/dL (0.55-1.02) H 05/19/18 03:15 Est GFR (MDRD) Af Amer 54 mL/min (>60) L 05/19/18 03:15 Est GFR (MDRD) Non-Af 45 mL/min (>60) L 05/19/18 03:15 BUN/Creatinine Ratio 6.1 RATIO (10-20) L 05/19/18 03:15 Glucose 82 mg/dL (74-106) 05/19/18 03:15 Vancomycin Trough 18.9 ug/mL (5.0-15.0) H 05/19/18 03:15 Microbiology: Microbiology 05/16/18 18:00 Urine, Clean Catch Urine Culture - Final Culture exhibits no growth. 05/16/18 21:30 Stool Enteric Bacteriology - Final 05/16/18 21:30 Stool C. difficile DNA Amplification - Final Weight used for dosin.9 kg Estimated Creatinine Clearance: 42.9 Goal Trough: 15-20 mcg/mL Pharmacy Plan for Drug Dosing: Trough level received as 18.9, within target range of 15-20. Will continue current dose of 500mg q 12 hours, and redraw trough in 4 days. Pharmacy Service will continue to monitor and adjust dosing as required. Follow-Up Labs: Trough Vancomycin Labs to be done on [date and time ordered]: 05/23/18 @023
[2018-05-19 05:16] LABS: Anisocytosis RARE; Platelet Estimate ADEQUATE (ADEQ)
[2018-05-19] MEDS: Heparin Injection (Vial) 5,000 UNIT/ML VIAL 5000 UNIT SC ×3 (05:28→21:13)
[2018-05-19 05:46] LABS: Bedside Glucose 88 mg/dL (70-110)
[2018-05-19] MEDS: Lactated Ringers 1,000 ML 999 ML IV ×2 (06:25→07:38)
--- NOTE | 2018-05-19 07:47 | PN_ITS ---
Subjective: Patient did okay overnight. Patient is more responsive, but is still having significant amounts of diarrhea and Levophed had to be increased to 12.5 overnight. Patient is also having issues with tachycardia. Patient did spike a fever overnight despite rectal Tylenol. Patient continues to deny any pain. Patient has not been able to pass a swallow evaluation. General: Alert, Cooperative - Intermittently, No apparent distress, - - Appears older than stated age. HEENT: Atraumatic, PERRLA, EOMI, Normocephalic, - - Some temporal wasting Oral: No Gingival or Mucosal Lesions/ Ulcerations, Dry Mucosa Neck: Supple, No JVD, No Nodes, Trachea Midline Lungs: No rhonchi, No wheeze, No rales, Diminished, - - Symmetric expansion. No dullness to percussion. Cardiovascular: Normal S1, Normal S2, No murmurs, No rub noted, No Gallop, Tachycardic, - - Sinus tachycardia noted on telemetry Abdomen: Bowel Sounds Present, Soft, Non Tender, Non-Distended, - - Scaphoid abdomen. Extremities: No cyanosis, No edema, Capillary Refill Less than 3 Seconds, Clubbing Skin: - - No significant change compared to previous Musculoskeletal: No Tenderness to Palpation of Joints or Extremities Lymphatic: No Cervical, Supraclavicular, or Inguinal Adenopathy Neurological: Cranial nerves II-XII grossly intact, Neuro grossly intact Psych/Mental Status: Flat Affect Vital Signs Temp Pulse Resp BP Pulse Ox 38.6 C H 124 H 34 H 79/61 L 100 05/19/18 06:00 05/19/18 06:00 05/19/18 06:00 05/19/18 06:00 05/19/18 06:00 Oxygen Flow Rate (L/min) 2 Oxygen Delivery Method Room Air Weight: 54 kg Body Mass Index (BMI) 19.5 Intake and Output for Last 24 Hours 05/17/18 05/18/18 05/19/18 23:59 23:59 23:59 Intake Total 1641 / 1641 4060 / 4060 272 / 272 Output Total 1600 / 1600 3675 / 3675 250 / 250 Balance 41 / 41 385 / 385 22 / 22 Labs (Last 48 Hours) 05/17/18 05/17/18 05/17/18 09:30 09:30 09:30 WBC RBC Hgb Hct MCV MCH MCHC RDW RDW Differential Plt Count MPV Immature Gran % (Auto) Neut % (Auto) Lymph % (Auto) [place] % (Auto) Eos % (Auto) Baso % (Auto) Absolute Neuts (auto) Absolute Lymphs (auto) Total Counted Differential Comment Platelet Estimate Hypochromasia Anisocytosis Microcytosis Specimen Type Sample Site pH Bicarbonate Actual POC Total CO2 Base Excess O2 Saturation ABG pCO2 ABG pO2 O2 Delivery Device Liter Flow Blood Gas Notified Whom Blood Gas Notified Time Sodium Potassium Chloride Carbon Dioxide Anion Gap BUN Creatinine Estim Creat Clear Calc Est GFR (MDRD) Af Amer Est GFR (MDRD) Non-Af BUN/Creatinine Ratio Glucose Calcium Phosphorus Magnesium Cortisol Ur Random Sodium Urine Creatinine 25.90 Urine Potassium 28.0 Urine Chloride 93 Vancomycin Trough POC Glucose 05/17/18 05/17/18 05/17/18 09:30 11:14 12:09 WBC RBC Hgb Hct MCV MCH MCHC RDW RDW Differential Plt Count MPV Immature Gran % (Auto) Neut % (Auto) Lymph % (Auto) [place] % (Auto) Eos % (Auto) Baso % (Auto) Absolute Neuts (auto) Absolute Lymphs (auto) Total Counted Differential Comment Platelet Estimate Hypochromasia Anisocytosis Microcytosis Specimen Type ART Sample Site R Brachial pH 7.36 Bicarbonate Actual 13.7 L POC Total CO2 14 Base Excess -12 L O2 Saturation 99 ABG pCO2 24.1 L ABG pO2 123 H O2 Delivery Device Nasal Can Liter Flow 2.0 Blood Gas Notified Whom ICU MD Blood Gas Notified Time 1207 Sodium Potassium Chloride Carbon Dioxide Anion Gap BUN Creatinine Estim Creat Clear Calc Est GFR (MDRD) Af Amer Est GFR (MDRD) Non-Af BUN/Creatinine Ratio Glucose Calcium Phosphorus Magnesium Cortisol Ur Random Sodium 69 Urine Creatinine Urine Potassium Urine Chloride Vancomycin Trough POC Glucose 105 05/17/18 05/17/18 05/17/18 12:45 12:45 12:45 WBC 2.3 L RBC 3.73 L Hgb 10.4 L Hct 27.9 L MCV 74.8 L MCH 27.9 MCHC 37.3 H RDW 16.8 H RDW Differential 46.1 H Plt Count 164 MPV 8.3 Immature Gran % (Auto) 0.000 Neut % (Auto) 66.5 Lymph % (Auto) 23.9 [place] % (Auto) 6.1 Eos % (Auto) 3.5 Baso % (Auto) 0.0 Absolute Neuts (auto) 1.5 L Absolute Lymphs (auto) 0.55 L Total Counted Not Reportable Differential Comment Platelet Estimate ADEQUATE Hypochromasia RARE Anisocytosis Microcytosis 1+ Specimen Type Sample Site pH Bicarbonate Actual POC Total CO2 Base Excess O2 Saturation ABG pCO2 ABG pO2 O2 Delivery Device Liter Flow Blood Gas Notified Whom Blood Gas Notified Time Sodium 137 Potassium 2.2 L* Chloride 109 H Carbon Dioxide 18.0 L Anion Gap 10 BUN 20 H Creatinine 1.22 H Estim Creat Clear Calc 46.22 Est GFR (MDRD) Af Amer 59 L Est GFR (MDRD) Non-Af 49 L BUN/Creatinine Ratio 16.4 Glucose 67 L Calcium 7.2 L Phosphorus 1.8 L Magnesium Cortisol Ur Random Sodium Urine Creatinine Urine Potassium Urine Chloride Vancomycin Trough POC Glucose 05/17/18 05/18/18 05/18/18 18:38 00:59 03:30 WBC 3.2 L RBC 4.00 L Hgb 11.6 L Hct 29.8 L MCV 74.5 L MCH 29.0 MCHC 38.9 H RDW 16.7 H RDW Differential 44.2 H Plt Count 212 MPV 8.9 Immature Gran % (Auto) 0.300 Neut % (Auto) 64.9 Lymph % (Auto) 25.0 [place] % (Auto) 6.3 Eos % (Auto) 3.2 Baso % (Auto) 0.3 Absolute Neuts (auto) 2.1 Absolute Lymphs (auto) 0.79 L Total Counted Not Reportable Differential Comment SCANNED Platelet Estimate Hypochromasia Anisocytosis Microcytosis Specimen Type Sample Site pH Bicarbonate Actual POC Total CO2 Base Excess O2 Saturation ABG pCO2 ABG pO2 O2 Delivery Device Liter Flow Blood Gas Notified Whom Blood Gas Notified Time Sodium Potassium Chloride Carbon Dioxide Anion Gap BUN Creatinine Estim Creat Clear Calc Est GFR (MDRD) Af Amer Est GFR (MDRD) Non-Af BUN/Creatinine Ratio Glucose Calcium Phosphorus Magnesium Cortisol Ur Random Sodium Urine Creatinine Urine Potassium Urine Chloride Vancomycin Trough POC Glucose 119 H 171 H 05/18/18 05/18/18 05/18/18 03:30 06:26 12:25 WBC RBC Hgb Hct MCV MCH MCHC RDW RDW Differential Plt Count MPV Immature Gran % (Auto) Neut % (Auto) Lymph % (Auto) [place] % (Auto) Eos % (Auto) Baso % (Auto) Absolute Neuts (auto) Absolute Lymphs (auto) Total Counted Differential Comment Platelet Estimate Hypochromasia Anisocytosis Microcytosis Specimen Type Sample Site pH Bicarbonate Actual POC Total CO2 Base Excess O2 Saturation ABG pCO2 ABG pO2 O2 Delivery Device Liter Flow Blood Gas Notified Whom Blood Gas Notified Time Sodium 140 Potassium 2.7 L* 2.3 L* Chloride 108 H Carbon Dioxide 22.0 Anion Gap 10 BUN 10 Creatinine 1.25 H Estim Creat Clear Calc 45.11 Est GFR (MDRD) Af Amer 57 L Est GFR (MDRD) Non-Af 48 L BUN/Creatinine Ratio 8.0 L Glucose 158 H Calcium 7.1 L Phosphorus 2.7 Magnesium Cortisol Ur Random Sodium Urine Creatinine Urine Potassium Urine Chloride Vancomycin Trough POC Glucose 96 05/18/18 05/18/18 05/18/18 12:25 12:34 23:26 WBC RBC Hgb Hct MCV MCH MCHC RDW RDW Differential Plt Count MPV Immature Gran % (Auto) Neut % (Auto) Lymph % (Auto) [place] % (Auto) Eos % (Auto) Baso % (Auto) Absolute Neuts (auto) Absolute Lymphs (auto) Total Counted Differential Comment Platelet Estimate Hypochromasia Anisocytosis Microcytosis Specimen Type Sample Site pH Bicarbonate Actual POC Total CO2 Base Excess O2 Saturation ABG pCO2 ABG pO2 O2 Delivery Device Liter Flow Blood Gas Notified Whom Blood Gas Notified Time Sodium Potassium Chloride Carbon Dioxide Anion Gap BUN Creatinine Estim Creat Clear Calc Est GFR (MDRD) Af Amer Est GFR (MDRD) Non-Af BUN/Creatinine Ratio Glucose Calcium Phosphorus Magnesium 1.4 L Cortisol Ur Random Sodium Urine Creatinine Urine Potassium Urine Chloride Vancomycin Trough POC Glucose 112 H 91 05/19/18 05/19/18 05/19/18 03:15 03:15 03:15 WBC 3.8 L RBC 4.40 Hgb 12.0 Hct 33.6 L MCV 76.4 L MCH 27.3 MCHC 35.7 RDW 17.3 H RDW Differential 48.4 H Plt Count 183 MPV 9.1 Immature Gran % (Auto) 0.000 Neut % (Auto) 70.6 H Lymph % (Auto) 22.0 [place] % (Auto) 4.2 Eos % (Auto) 2.9 Baso % (Auto) 0.3 Absolute Neuts (auto) 2.7 Absolute Lymphs (auto) 0.84 Total Counted Not Reportable Differential Comment Platelet Estimate ADEQUATE Hypochromasia Anisocytosis RARE Microcytosis Specimen Type Sample Site pH Bicarbonate Actual POC Total CO2 Base Excess O2 Saturation ABG pCO2 ABG pO2 O2 Delivery Device Liter Flow Blood Gas Notified Whom Blood Gas Notified Time Sodium 143 Potassium 2.8 L Chloride 114 H Carbon Dioxide 18.0 L Anion Gap 11 BUN 8 Creatinine 1.31 H Estim Creat Clear Calc 42.89 Est GFR (MDRD) Af Amer 54 L Est GFR (MDRD) Non-Af 45 L BUN/Creatinine Ratio 6.1 L Glucose 82 Calcium 7.6 L Phosphorus Magnesium Cortisol Ur Random Sodium Urine Creatinine Urine Potassium Urine Chloride Vancomycin Trough 18.9 H POC Glucose 05/19/18 05/19/18 05/19/18 03:15 05:29 06:25 WBC RBC Hgb Hct MCV MCH MCHC RDW RDW Differential Plt Count MPV Immature Gran % (Auto) Neut % (Auto) Lymph % (Auto) [place] % (Auto) Eos % (Auto) Baso % (Auto) Absolute Neuts (auto) Absolute Lymphs (auto) Total Counted Differential Comment Platelet Estimate Hypochromasia Anisocytosis Microcytosis Specimen Type Sample Site pH Bicarbonate Actual POC Total CO2 Base Excess O2 Saturation ABG pCO2 ABG pO2 O2 Delivery Device Liter Flow Blood Gas Notified Whom Blood Gas Notified Time Sodium Potassium Chloride Carbon Dioxide Anion Gap BUN Creatinine Estim Creat Clear Calc Est GFR (MDRD) Af Amer Est GFR (MDRD) Non-Af BUN/Creatinine Ratio Glucose Calcium Phosphorus 3.5 Magnesium 3.5 H Cortisol Pending Ur Random Sodium Urine Creatinine Urine Potassium Urine Chloride Vancomycin Trough POC Glucose 88 Microbiology 05/16/18 18:00 Urine, Clean Catch Urine Culture - Final Culture exhibits no growth. 05/16/18 21:30 Stool Enteric Bacteriology - Final Medical Necessity - Tobacco Use Smoking Status: Current every day smoker Tobacco Use: Cigarettes Assessment/Plan All Active Problems (Last Reviewed 05/16/18 @ 20:50 by Sohan Waddell MD) Acute kidney injury (Acute) Hypokalemia (Acute) Abnormal EKG (Acute) Hyponatremia (Acute) Nausea vomiting and diarrhea (Acute) Pulmonary embolism (Acute) Periodontal disease (Acute) Nausea & vomiting (Acute) Headache (Acute) Encounter for adjustment or management of vascular access device (Acute) Small cell lung cancer (Acute) Regional lymph node metastasis present (Acute) Lung metastasis (Acute) RECOMMENDATIONS: 1. Continue empiric antibiotics, repeat culture with next fever spike 2. Continue pressors, obtain random cortisol 3. Aggressive potassium repletion 4. Appreciate oncology, renal input 5. Likely initiate Imodium if able to pass swallow eval IMPRESSIONS: 1. Septic shock of unclear etiology Patient is currently immunosuppressed secondary to chemotherapy. Patient did develop fever and hypotension. Patient was given a fluid challenge this morning and appears to have improved somewhat. Patient is still on significant amount of Levophed. Nursing estimates 500-1000 mL's of stool in a daily basis. Stool continues to be reported as liquid, but workup for C. difficile and other infectious etiologies has been negative to this point. Will obtain a random cortisol to see if stress dose steroids would be appropriate. 2. Acute kidney injury secondary to hypovolemia secondary to gastroenteritis Improving. Clinical suspicion for prerenal etiology secondary to volume loss from gastroenteritis. Patient may have an element of sloughing secondary to immunotherapy. No indication for renal replacement therapy at this time. C. difficile and enteric pathogens are negative. Continue with supportive care. 3. Hypokalemia/hypophosphatemia/hyponatremia Patient continues to have very suppressed potassium levels. Patient's phosphorus is now repleted. We will continue with aggressive potassium repletion. 80 mEq will be ordered along with a repeat lab. Anticipate 160-200 mEq of potassium will be needed today to get to appropriate levels. No EKG changes are appreciated. Clinical suspicion for GI losses. 4. Small cell lung cancer of the right lung Patient currently receiving immunotherapy at [facility]. Oncology is currently following. 5. Severe protein calorie malnutrition/debility/recurrent hypoglycemia/bipolar/minimal tobacco abuse Complicates care, management, recovery and prognosis. Patient's mental status makes feeding difficult at this time. We will continue to monitor. Dietitian has been consulted and will be following. TIME: 32 minutes critical care time spent addressing patient's septic shock, acute kidney injury, electrolyte abnormalities, review of all data and collaboration with care team. (5:30 AM to 7:45 AM) Code Visit [id number]: [id number] Critical care first hour
--- NOTE | 2018-05-19 08:05 | PCM.PN.HOSP ---
Patient Problems: Active and Suspected Problems (Last Reviewed 05/16/18 @ 20:50 by Sohan Waddell MD) Acute kidney injury (Acute) Hypokalemia (Acute) Abnormal EKG (Acute) Hyponatremia (Acute) Nausea vomiting and diarrhea (Acute) Small cell lung cancer (Acute) Subjective: Patient continues to have persistent temperature, 101-102F, T-max last night 102.4 Fahrenheit. Blood pressure persistently low, Levophed drip which was increased. Patient has diarrhea, significant fluid loss. Serum potassium is low but better than before. Patient is awake but disoriented x1 with weakness and lethargy Vitals/I&O's: Vital Signs Temp Pulse Resp BP Pulse Ox 101.4 F H 122 H 34 H 79/61 L 100 05/19/18 06:00 05/19/18 07:54 05/19/18 06:00 05/19/18 06:00 05/19/18 06:00 Oxygen Flow Rate (L/min) 2 Oxygen Delivery Method Room Air Weight: 119 lb 0.794 oz Body Mass Index (BMI) 19.5 Intake and Output for Last 24 Hours 05/17/18 05/18/18 05/19/18 23:59 23:59 23:59 Intake Total 1641 / 1641 4060 / 4060 272 / 272 Output Total 1600 / 1600 3675 / 3675 250 / 250 Balance 41 / 41 385 / 385 22 / 22 General: Confused, Disoriented, Lethargic HEENT: Atraumatic, PERRLA, EOMI, Normocephalic Oral: Moist Mucosa Neck: Supple, No JVD, Negative Carotid Bruits Lungs: No rhonchi, No wheeze, Diminished Cardiovascular: Regular rate, Regular Rhythm, Normal S1, Normal S2, No murmurs Abdomen: Bowel Sounds Present, Soft, Non Tender, Non-Distended Extremities: No edema, Capillary Refill Less than 3 Seconds Skin: No rashes, No breakdown Musculoskeletal: No Tenderness to Palpation of Joints or Extremities, Arthritic Changes, Muscle Wasting Neurological: Cranial nerves II-XII grossly intact Psych/Mental Status: Normal Affect, Appropriate Microbiology Past 72 Hours 05/16/18 18:00 Urine, Clean Catch Urine Culture - Final Culture exhibits no growth. 05/16/18 21:30 Stool Enteric Bacteriology - Final 05/16/18 21:30 Stool C. difficile DNA Amplification - Final Laboratory Results 05/18/18 12:25: Potassium 2.3 L* 05/18/18 12:25: Magnesium 1.4 L 05/18/18 12:34: POC Glucose 112 H 05/18/18 23:26: POC Glucose 91 05/19/18 03:15: Sodium 143, Potassium 2.8 L, Chloride 114 H, Carbon Dioxide 18.0 L, Anion Gap 11, BUN 8, Creatinine 1.31 H, Estim Creat Clear Calc 42.89, Est GFR (MDRD) Af Amer 54 L, Est GFR (MDRD) Non-Af 45 L, BUN/Creatinine Ratio 6.1 L, Glucose 82, Calcium 7.6 L 05/19/18 03:15: WBC 3.8 L, RBC 4.40, Hgb 12.0, Hct 33.6 L, MCV 76.4 L, MCH 27.3, MCHC 35.7, RDW 17.3 H, RDW Differential 48.4 H, Plt Count 183, MPV 9.1, Immature Gran % (Auto) 0.000, Neut % (Auto) 70.6 H, Lymph % (Auto) 22.0, [place] % (Auto) 4.2, Eos % (Auto) 2.9, Baso % (Auto) 0.3, Absolute Neuts (auto) 2.7, Absolute Lymphs (auto) 0.84, Total Counted Not Reportable, Platelet Estimate ADEQUATE, Anisocytosis RARE 05/19/18 03:15: Vancomycin Trough 18.9 H 05/19/18 03:15: Phosphorus 3.5, Magnesium 3.5 H 05/19/18 05:29: POC Glucose 88 05/19/18 06:25: Cortisol Pending Current Medications Acetaminophen (Tylenol) 650 mg RECTAL Q6H PRN PRN PRN Reason: Fever >101 Last Admin: 05/18/18 20:18 Dose: 650 mg Albuterol/Ipratropium (Duoneb) 3 ml INHALATION Q6H PRN PRN PRN Reason: Shortness of breath/Wheeze Aspirin (Aspirin, Baby) 81 mg PO DAILY@0800 [facility] Last Admin: 05/19/18 07:29 Dose: Not Given Atorvastatin Calcium (Lipitor) 80 mg PO QHS [facility] Last Admin: 05/18/18 21:15 Dose: Not Given Calamine/Phenol (Calmoseptine Ointment) 1 applic TOPICAL BID [facility]; Protocol Last Admin: 05/18/18 21:24 Dose: 1 applicatio Chlorhexidine Gluconate () 1 each TOPICAL DAILY [facility] Last Admin: 05/19/18 04:00 Dose: 1 each Cyclobenzaprine HCl (Cyclobenzaprine Hcl) 5 mg PO TID PRN PRN Reason: ANXIETY Heparin Sodium (Beef Lung) (Heparin 500 Unit/5 Ml (100/Ml)) 500 unit IV UD PRN PRN Reason: HEPARIN FLUSH Heparin Sodium (Porcine) (Heparin Na) 5,000 unit SC Q8 [facility] Last Admin: 05/19/18 05:28 Dose: 5,000 unit Thiamine HCl 100 mg/ Sodium (Chloride) 51 mls @ 200 mls/hr IV DAILY [facility] Last Admin: 05/18/18 10:37 Dose: 200 mls/hr Norepinephrine Bitartrate 8 mg (/ Dextrose) 258 mls @ 9.68 mls/hr IV .[id number] [facility] Last Admin: 05/18/18 21:25 Dose: 9.68 mls/hr Vancomycin IV Pharmacy to Dose (1 ea/ Sodium Chloride) 500 mls @ 250 mls/hr IV X1 PRN; Protocol PRN Reason: Rx to Dose Meropenem 500 mg/ Sodium (Chloride) 60 mls @ 100 mls/hr IV Q8 [facility] Last Admin: 05/19/18 05:27 Dose: 100 mls/hr Vancomycin HCl () 500 mg in 100 mls @ 100 mls/hr IV Q12H [facility] Last Admin: 05/19/18 04:00 Dose: 100 mls/hr Famotidine 20 mg/ Sodium (Chloride) 10 mls @ 300 mls/hr IV Q24 [facility] Last Admin: 05/18/18 10:37 Dose: 300 mls/hr Potassium Chloride 40 meq/ (Sodium Chloride) 120 mls @ 100 mls/hr IV BOLUS X1 ONE Stop: 05/19/18 10:11 Lactated Ringer's () 1,000 mls @ 999 mls/hr IV .Q1H1M [facility] Stop: 05/19/18 08:35 Last Admin: 05/19/18 07:38 Dose: 999 mls/hr Lorazepam (Ativan) 1 mg PO Q4H PRN PRN PRN Reason: ANXIETY Magnesium Hydroxide (Milk Of Magnesia) 30 ml PO DAILY PRN PRN Reason: Constipation Mirtazapine (Remeron) 7.5 mg PO QHS PRN PRN Reason: SLEEP Ondansetron HCl (Zofran) 8 mg PO Q8H PRN PRN PRN Reason: NAUSEA Ondansetron HCl (Zofran) 4 mg IV Q6H PRN PRN PRN Reason: NAUSEA/VOMITING Last Admin: 05/19/18 04:05 Dose: 4 mg Oxycodone HCl (Oxyir) 5 mg PO Q6H PRN PRN PRN Reason: PAIN Sodium Chloride () 10 ml IV UD PRN PRN Reason: VAD FLUSH Last Admin: 05/19/18 06:21 Dose: 10 ml Sodium Chloride () 10 ml IV UD PRN PRN Reason: VAD FLUSH Last Admin: 05/18/18 13:36 Dose: 10 ml Medical Necessity - Tobacco Use Smoking Status: Current every day smoker Tobacco Use: Cigarettes Assessment/Plan All Active Problems (Last Reviewed 05/16/18 @ 20:50 by Sohan Waddell MD) Acute kidney injury (Acute) Hypokalemia (Acute) Abnormal EKG (Acute) Hyponatremia (Acute) Nausea vomiting and diarrhea (Acute) Pulmonary embolism (Acute) Periodontal disease (Acute) Nausea & vomiting (Acute) Headache (Acute) Encounter for adjustment or management of vascular access device (Acute) Small cell lung cancer (Acute) Regional lymph node metastasis present (Acute) Lung metastasis (Acute) There is a 52 female with history of COPD, right side limited small cell cancer on chemoradiation before and now on immunotherapy, follows Dr. Giraldo in [facility] was admitted yesterday night for 10 days history of nausea, vomiting, diarrhea, anorexia and poor oral intake, lethargic with altered mental status and severe electrolyte imbalance to stepdown. The patient was initially resuscitated with IV fluid normal saline, electrolyte repletion and bicarb drip for severe metabolic acidosis. Patient was later transferred to ICU. Discussed with the oncologist team and Dr. Mckeon. 1. Septic shock of unclear etiology: Patient is currently admitted in ICU. C. difficile and enteric bacteriology panel are negative. Blood culture drawn on 05/16 and then in ICU, 05/17 are pending. On IV fluid resuscitation. Started on Levophed drip. Currently on IV vancomycin and meropenem for broad-spectrum coverage. 2. Severe electrolyte imbalance with high anion gap metabolic acidosis with compensatory respiratory alkalosis, most probably secondary to diarrhea, or Fanconi syndrome/possible endocrinopathy secondary to immunotherapy: Hypokalemia, hypophosphatemia and hyponatremia: Potassium was 2.0. Serum is improved to 2.8. Bicarb 18. Anion gap 11. Phosphorus normal. Sodium normal. B gastroenteritis, nausea, vomiting, diarrhea secondary to chemotherapy/immunotherapy. 3. Acute kidney injury most probably secondary to hypovolemia/prerenal etiology: Monitor creatinine and electrolytes as mentioned above. Insurance Sales Assistant consult reviewed. Creatinine remains stable. Urine electrolytes 6 sodium 69, potassium 28, chloride 93, creatinine 25.9. 4. Abnormal EKG: Patient had ST depression in inferolateral leads and slight ST elevation in aVR. Discussed with Dr. Blue and he thinks there is no coronary event as patient troponins are negative. It may be secondary to electrolyte imbalance: 5. Right-sided small cell lung cancer with history of multiple chemoradiation, currently immunotherapy ipilimumab and nivolumab at [facility] under the care of Dr. Cabral. Discussed with the oncologist Radha FRIEDMAN. patient completed 4 cycles nivolumab/ipilimumab, last dose on 05/05/18 at the [facility]. Severe protein calorie malnutrition: Solvent Mixer consult. 6. 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 Multiple comorbidities complicates the present care and expect difficult and delay recovery. Poor prognosis. DVT prophylaxis: On heparin 500 subcutaneous 3 times daily. Microbiology Past 72 Hours 05/16/18 19:05 Blood Culture (Wb) - Left Hand Blood Culture - Preliminary No growth in 48 hours. 05/16/18 17:35 Blood Culture (Wb) - Port Blood Culture - Preliminary No growth in 48 hours. 05/16/18 18:00 Urine, Clean Catch Urine Culture - Final Culture exhibits no growth. 05/16/18 21:30 Stool Enteric Bacteriology - Final 05/16/18 21:30 Stool C. difficile DNA Amplification - Final Laboratory Results 05/19/18 03:15: Sodium 143, Potassium 2.8 L, Chloride 114 H, Carbon Dioxide 18.0 L, Anion Gap 11, BUN 8, Creatinine 1.31 H, Estim Creat Clear Calc 42.89, Est GFR (MDRD) Af Amer 54 L, Est GFR (MDRD) Non-Af 45 L, BUN/Creatinine Ratio 6.1 L, Glucose 82, Calcium 7.6 L 05/19/18 03:15: WBC 3.8 L, RBC 4.40, Hgb 12.0, Hct 33.6 L, MCV 76.4 L, MCH 27.3, MCHC 35.7, RDW 17.3 H, RDW Differential 48.4 H, Plt Count 183, MPV 9.1, Immature Gran % (Auto) 0.000, Neut % (Auto) 70.6 H, Lymph % (Auto) 22.0, [place] % (Auto) 4.2, Eos % (Auto) 2.9, Baso % (Auto) 0.3, Absolute Neuts (auto) 2.7, Absolute Lymphs (auto) 0.84, Total Counted Not Reportable, Platelet Estimate ADEQUATE, Anisocytosis RARE 05/19/18 03:15: Vancomycin Trough 18.9 H 05/19/18 03:15: Phosphorus 3.5, Magnesium 3.5 H 05/19/18 05:29: POC Glucose 88 05/19/18 06:25: Cortisol Pending Clinical Impression(s) from Imaging Studies Chest X-Ray 05/16/18 17:35 IMPRESSION: Stable x-ray examination of the chest since CT chest/thorax November 17, 2017, as described. Chest X-Ray 05/17/18 12:21 IMPRESSION: 1. Stable chronic right perihilar stranding. 2. Subcentimeter faint nodular density projecting in left base is likely an artifact. 3. Right chest wall MediPort again noted. Active Medications Acetaminophen (Tylenol) 650 mg RECTAL Q6H PRN PRN PRN Reason: Fever >101 Last Admin: 05/18/18 20:18 Dose: 650 mg Albuterol/Ipratropium (Duoneb) 3 ml INHALATION Q6H PRN PRN PRN Reason: Shortness of breath/Wheeze Aspirin (Aspirin, Baby) 81 mg PO DAILY@0800 [facility] Last Admin: 05/19/18 07:29 Dose: Not Given Atorvastatin Calcium (Lipitor) 80 mg PO QHS [facility] Last Admin: 05/18/18 21:15 Dose: Not Given Calamine/Phenol (Calmoseptine Ointment) 1 applic TOPICAL BID [facility]; Protocol Last Admin: 05/18/18 21:24 Dose: 1 applicatio Chlorhexidine Gluconate () 1 each TOPICAL DAILY [facility] Last Admin: 05/19/18 04:00 Dose: 1 each Cyclobenzaprine HCl (Cyclobenzaprine Hcl) 5 mg PO TID PRN PRN Reason: ANXIETY Heparin Sodium (Beef Lung) (Heparin 500 Unit/5 Ml (100/Ml)) 500 unit IV UD PRN PRN Reason: HEPARIN FLUSH Heparin Sodium (Porcine) (Heparin Na) 5,000 unit SC Q8 [facility] Last Admin: 05/19/18 05:28 Dose: 5,000 unit Thiamine HCl 100 mg/ Sodium (Chloride) 51 mls @ 200 mls/hr IV DAILY [facility] Last Admin: 05/18/18 10:37 Dose: 200 mls/hr Norepinephrine Bitartrate 8 mg (/ Dextrose) 258 mls @ 9.68 mls/hr IV .[id number] [facility] Last Admin: 05/18/18 21:25 Dose: 9.68 mls/hr Vancomycin IV Pharmacy to Dose (1 ea/ Sodium Chloride) 500 mls @ 250 mls/hr IV X1 PRN; Protocol PRN Reason: Rx to Dose Meropenem 500 mg/ Sodium (Chloride) 60 mls @ 100 mls/hr IV Q8 [facility] Last Admin: 05/19/18 05:27 Dose: 100 mls/hr Vancomycin HCl () 500 mg in 100 mls @ 100 mls/hr IV Q12H [facility] Last Admin: 05/19/18 04:00 Dose: 100 mls/hr Famotidine 20 mg/ Sodium (Chloride) 10 mls @ 300 mls/hr IV Q24 [facility] Last Admin: 05/18/18 10:37 Dose: 300 mls/hr Potassium Chloride 40 meq/ (Sodium Chloride) 120 mls @ 100 mls/hr IV BOLUS X1 ONE Stop: 05/19/18 10:11 Lactated Ringer's () 1,000 mls @ 999 mls/hr IV .Q1H1M [facility] Stop: 05/19/18 08:35 Last Admin: 05/19/18 07:38 Dose: 999 mls/hr Lorazepam (Ativan) 1 mg PO Q4H PRN PRN PRN Reason: ANXIETY Magnesium Hydroxide (Milk Of Magnesia) 30 ml PO DAILY PRN PRN Reason: Constipation Mirtazapine (Remeron) 7.5 mg PO QHS PRN PRN Reason: SLEEP Ondansetron HCl (Zofran) 8 mg PO Q8H PRN PRN PRN Reason: NAUSEA Ondansetron HCl (Zofran) 4 mg IV Q6H PRN PRN PRN Reason: NAUSEA/VOMITING Last Admin: 05/19/18 04:05 Dose: 4 mg Oxycodone HCl (Oxyir) 5 mg PO Q6H PRN PRN PRN Reason: PAIN Sodium Chloride () 10 ml IV UD PRN PRN Reason: VAD FLUSH Last Admin: 05/19/18 06:21 Dose: 10 ml Sodium Chloride () 10 ml IV UD PRN PRN Reason: VAD FLUSH Last Admin: 05/18/18 13:36 Dose: 10 ml Code Visit Inpatient E&M: 76724 Subs Hosp L3
--- NOTE | 2018-05-19 08:12 | PN_ITS ---
Patient Problems: Active and Suspected Problems (Last Reviewed 05/16/18 @ 20:50 by Sohan Waddell MD) Acute kidney injury (Acute) Hypokalemia (Acute) Abnormal EKG (Acute) Hyponatremia (Acute) Nausea vomiting and diarrhea (Acute) Small cell lung cancer (Acute) Subjective: Patient continues to have persistent temperature, 101-102F, T-max last night 102.4 Fahrenheit. Blood pressure persistently low, Levophed drip which was increased. Patient has diarrhea, significant fluid loss. Serum potassium is low but better than before. Patient is awake but disoriented x1 with weakness and lethargy Vitals/I&O's: Vital Signs Temp Pulse Resp BP Pulse Ox 101.4 F H 122 H 34 H 79/61 L 100 05/19/18 06:00 05/19/18 07:54 05/19/18 06:00 05/19/18 06:00 05/19/18 06:00 Oxygen Flow Rate (L/min) 2 Oxygen Delivery Method Room Air Weight: 119 lb 0.794 oz Body Mass Index (BMI) 19.5 Intake and Output for Last 24 Hours 05/17/18 05/18/18 05/19/18 23:59 23:59 23:59 Intake Total 1641 / 1641 4060 / 4060 272 / 272 Output Total 1600 / 1600 3675 / 3675 250 / 250 Balance 41 / 41 385 / 385 22 / 22 General: Confused, Disoriented, Lethargic HEENT: Atraumatic, PERRLA, EOMI, Normocephalic Oral: Moist Mucosa Neck: Supple, No JVD, Negative Carotid Bruits Lungs: No rhonchi, No wheeze, Diminished Cardiovascular: Regular rate, Regular Rhythm, Normal S1, Normal S2, No murmurs Abdomen: Bowel Sounds Present, Soft, Non Tender, Non-Distended Extremities: No edema, Capillary Refill Less than 3 Seconds Skin: No rashes, No breakdown Musculoskeletal: No Tenderness to Palpation of Joints or Extremities, Arthritic Changes, Muscle Wasting Neurological: Cranial nerves II-XII grossly intact Psych/Mental Status: Normal Affect, Appropriate Microbiology Past 72 Hours 05/16/18 18:00 Urine, Clean Catch Urine Culture - Final Culture exhibits no growth. 05/16/18 21:30 Stool Enteric Bacteriology - Final 05/16/18 21:30 Stool C. difficile DNA Amplification - Final Laboratory Results 05/18/18 12:25: Potassium 2.3 L* 05/18/18 12:25: Magnesium 1.4 L 05/18/18 12:34: POC Glucose 112 H 05/18/18 23:26: POC Glucose 91 05/19/18 03:15: Sodium 143, Potassium 2.8 L, Chloride 114 H, Carbon Dioxide 18.0 L, Anion Gap 11, BUN 8, Creatinine 1.31 H, Estim Creat Clear Calc 42.89, Est GFR (MDRD) Af Amer 54 L, Est GFR (MDRD) Non-Af 45 L, BUN/Creatinine Ratio 6.1 L, Glucose 82, Calcium 7.6 L 05/19/18 03:15: WBC 3.8 L, RBC 4.40, Hgb 12.0, Hct 33.6 L, MCV 76.4 L, MCH 27.3, MCHC 35.7, RDW 17.3 H, RDW Differential 48.4 H, Plt Count 183, MPV 9.1, Immature Gran % (Auto) 0.000, Neut % (Auto) 70.6 H, Lymph % (Auto) 22.0, [place] % (Auto) 4.2, Eos % (Auto) 2.9, Baso % (Auto) 0.3, Absolute Neuts (auto) 2.7, Absolute Lymphs (auto) 0.84, Total Counted Not Reportable, Platelet Estimate ADEQUATE, Anisocytosis RARE 05/19/18 03:15: Vancomycin Trough 18.9 H 05/19/18 03:15: Phosphorus 3.5, Magnesium 3.5 H 05/19/18 05:29: POC Glucose 88 05/19/18 06:25: Cortisol Pending Current Medications Acetaminophen (Tylenol) 650 mg RECTAL Q6H PRN PRN PRN Reason: Fever >101 Last Admin: 05/18/18 20:18 Dose: 650 mg Albuterol/Ipratropium (Duoneb) 3 ml INHALATION Q6H PRN PRN PRN Reason: Shortness of breath/Wheeze Aspirin (Aspirin, Baby) 81 mg PO DAILY@0800 [facility] Last Admin: 05/19/18 07:29 Dose: Not Given Atorvastatin Calcium (Lipitor) 80 mg PO QHS [facility] Last Admin: 05/18/18 21:15 Dose: Not Given Calamine/Phenol (Calmoseptine Ointment) 1 applic TOPICAL BID [facility]; Protocol Last Admin: 05/18/18 21:24 Dose: 1 applicatio Chlorhexidine Gluconate () 1 each TOPICAL DAILY [facility] Last Admin: 05/19/18 04:00 Dose: 1 each Cyclobenzaprine HCl (Cyclobenzaprine Hcl) 5 mg PO TID PRN PRN Reason: ANXIETY Heparin Sodium (Beef Lung) (Heparin 500 Unit/5 Ml (100/Ml)) 500 unit IV UD PRN PRN Reason: HEPARIN FLUSH Heparin Sodium (Porcine) (Heparin Na) 5,000 unit SC Q8 [facility] Last Admin: 05/19/18 05:28 Dose: 5,000 unit Thiamine HCl 100 mg/ Sodium (Chloride) 51 mls @ 200 mls/hr IV DAILY [facility] Last Admin: 05/18/18 10:37 Dose: 200 mls/hr Norepinephrine Bitartrate 8 mg (/ Dextrose) 258 mls @ 9.68 mls/hr IV .[id number] [facility] Last Admin: 05/18/18 21:25 Dose: 9.68 mls/hr Vancomycin IV Pharmacy to Dose (1 ea/ Sodium Chloride) 500 mls @ 250 mls/hr IV X1 PRN; Protocol PRN Reason: Rx to Dose Meropenem 500 mg/ Sodium (Chloride) 60 mls @ 100 mls/hr IV Q8 [facility] Last Admin: 05/19/18 05:27 Dose: 100 mls/hr Vancomycin HCl () 500 mg in 100 mls @ 100 mls/hr IV Q12H [facility] Last Admin: 05/19/18 04:00 Dose: 100 mls/hr Famotidine 20 mg/ Sodium (Chloride) 10 mls @ 300 mls/hr IV Q24 [facility] Last Admin: 05/18/18 10:37 Dose: 300 mls/hr Potassium Chloride 40 meq/ (Sodium Chloride) 120 mls @ 100 mls/hr IV BOLUS X1 ONE Stop: 05/19/18 10:11 Lactated Ringer's () 1,000 mls @ 999 mls/hr IV .Q1H1M [facility] Stop: 05/19/18 08:35 Last Admin: 05/19/18 07:38 Dose: 999 mls/hr Lorazepam (Ativan) 1 mg PO Q4H PRN PRN PRN Reason: ANXIETY Magnesium Hydroxide (Milk Of Magnesia) 30 ml PO DAILY PRN PRN Reason: Constipation Mirtazapine (Remeron) 7.5 mg PO QHS PRN PRN Reason: SLEEP Ondansetron HCl (Zofran) 8 mg PO Q8H PRN PRN PRN Reason: NAUSEA Ondansetron HCl (Zofran) 4 mg IV Q6H PRN PRN PRN Reason: NAUSEA/VOMITING Last Admin: 05/19/18 04:05 Dose: 4 mg Oxycodone HCl (Oxyir) 5 mg PO Q6H PRN PRN PRN Reason: PAIN Sodium Chloride () 10 ml IV UD PRN PRN Reason: VAD FLUSH Last Admin: 05/19/18 06:21 Dose: 10 ml Sodium Chloride () 10 ml IV UD PRN PRN Reason: VAD FLUSH Last Admin: 05/18/18 13:36 Dose: 10 ml Medical Necessity - Tobacco Use Smoking Status: Current every day smoker Tobacco Use: Cigarettes Assessment/Plan All Active Problems (Last Reviewed 05/16/18 @ 20:50 by Sohan Waddell MD) Acute kidney injury (Acute) Hypokalemia (Acute) Abnormal EKG (Acute) Hyponatremia (Acute) Nausea vomiting and diarrhea (Acute) Pulmonary embolism (Acute) Periodontal disease (Acute) Nausea & vomiting (Acute) Headache (Acute) Encounter for adjustment or management of vascular access device (Acute) Small cell lung cancer (Acute) Regional lymph node metastasis present (Acute) Lung metastasis (Acute) There is a 52 female with history of COPD, right side limited small cell cancer on chemoradiation before and now on immunotherapy, follows Dr. Giraldo in [facility] was admitted yesterday night for 10 days history of nausea, vomiting, diarrhea, anorexia and poor oral intake, lethargic with altered mental status and severe electrolyte imbalance to stepdown. The patient was initially resuscitated with IV fluid normal saline, electrolyte repletion and bicarb drip for severe metabolic acidosis. Patient was later transferred to ICU. Discussed with the oncologist team and Dr. Mckeon. 1. Septic shock of unclear etiology: Patient is currently admitted in ICU. C. difficile and enteric bacteriology panel are negative. Blood culture drawn on 05/16 and then in ICU, 05/17 are pending. On IV fluid resuscitation. Started on Levophed drip. Currently on IV vancomycin and meropenem for broad-spectrum coverage. 2. Severe electrolyte imbalance with high anion gap metabolic acidosis with compensatory respiratory alkalosis, most probably secondary to diarrhea, or Fanconi syndrome/possible endocrinopathy secondary to immunotherapy: Hypokalemia, hypophosphatemia and hyponatremia: Potassium was 2.0. Serum is improved to 2.8. Bicarb 18. Anion gap 11. Phosphorus normal. Sodium normal. B gastroenteritis, nausea, vomiting, diarrhea secondary to chemotherapy/immunotherapy. 3. Acute kidney injury most probably secondary to hypovolemia/prerenal etiology: Monitor creatinine and electrolytes as mentioned above. Carpentry Instructor consult reviewed. Creatinine remains stable. Urine electrolytes 6 sodium 69, potassium 28, chloride 93, creatinine 25.9. 4. Abnormal EKG: Patient had ST depression in inferolateral leads and slight ST elevation in aVR. Discussed with Dr. Blue and he thinks there is no coronary event as patient troponins are negative. It may be secondary to electrolyte imbalance: 5. Right-sided small cell lung cancer with history of multiple chemoradiation, currently immunotherapy ipilimumab and nivolumab at [facility] under the care of Dr. Cabral. Discussed with the oncologist Radha FRIEDMAN. patient completed 4 cycles nivolumab/ipilimumab, last dose on 05/05/18 at the [facility]. Severe protein calorie malnutrition: Systems Software Manager consult. 6. 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 Multiple comorbidities complicates the present care and expect difficult and delay recovery. Poor prognosis. DVT prophylaxis: On heparin 500 subcutaneous 3 times daily. Microbiology Past 72 Hours 05/16/18 19:05 Blood Culture (Wb) - Left Hand Blood Culture - Preliminary No growth in 48 hours. 05/16/18 17:35 Blood Culture (Wb) - Port Blood Culture - Preliminary No growth in 48 hours. 05/16/18 18:00 Urine, Clean Catch Urine Culture - Final Culture exhibits no growth. 05/16/18 21:30 Stool Enteric Bacteriology - Final 05/16/18 21:30 Stool C. difficile DNA Amplification - Final Laboratory Results 05/19/18 03:15: Sodium 143, Potassium 2.8 L, Chloride 114 H, Carbon Dioxide 18.0 L, Anion Gap 11, BUN 8, Creatinine 1.31 H, Estim Creat Clear Calc 42.89, Est GFR (MDRD) Af Amer 54 L, Est GFR (MDRD) Non-Af 45 L, BUN/Creatinine Ratio 6.1 L, Glucose 82, Calcium 7.6 L 05/19/18 03:15: WBC 3.8 L, RBC 4.40, Hgb 12.0, Hct 33.6 L, MCV 76.4 L, MCH 27.3, MCHC 35.7, RDW 17.3 H, RDW Differential 48.4 H, Plt Count 183, MPV 9.1, Immature Gran % (Auto) 0.000, Neut % (Auto) 70.6 H, Lymph % (Auto) 22.0, [place] % (Auto) 4.2, Eos % (Auto) 2.9, Baso % (Auto) 0.3, Absolute Neuts (auto) 2.7, Absolute Lymphs (auto) 0.84, Total Counted Not Reportable, Platelet Estimate ADEQUATE, Anisocytosis RARE 05/19/18 03:15: Vancomycin Trough 18.9 H 05/19/18 03:15: Phosphorus 3.5, Magnesium 3.5 H 05/19/18 05:29: POC Glucose 88 05/19/18 06:25: Cortisol Pending Clinical Impression(s) from Imaging Studies Chest X-Ray 05/16/18 17:35 IMPRESSION: Stable x-ray examination of the chest since CT chest/thorax November 17, 2017, as described. Chest X-Ray 05/17/18 12:21 IMPRESSION: 1. Stable chronic right perihilar stranding. 2. Subcentimeter faint nodular density projecting in left base is likely an artifact. 3. Right chest wall MediPort again noted. Active Medications Acetaminophen (Tylenol) 650 mg RECTAL Q6H PRN PRN PRN Reason: Fever >101 Last Admin: 05/18/18 20:18 Dose: 650 mg Albuterol/Ipratropium (Duoneb) 3 ml INHALATION Q6H PRN PRN PRN Reason: Shortness of breath/Wheeze Aspirin (Aspirin, Baby) 81 mg PO DAILY@0800 [facility] Last Admin: 05/19/18 07:29 Dose: Not Given Atorvastatin Calcium (Lipitor) 80 mg PO QHS [facility] Last Admin: 05/18/18 21:15 Dose: Not Given Calamine/Phenol (Calmoseptine Ointment) 1 applic TOPICAL BID [facility]; Protocol Last Admin: 05/18/18 21:24 Dose: 1 applicatio Chlorhexidine Gluconate () 1 each TOPICAL DAILY [facility] Last Admin: 05/19/18 04:00 Dose: 1 each Cyclobenzaprine HCl (Cyclobenzaprine Hcl) 5 mg PO TID PRN PRN Reason: ANXIETY Heparin Sodium (Beef Lung) (Heparin 500 Unit/5 Ml (100/Ml)) 500 unit IV UD PRN PRN Reason: HEPARIN FLUSH Heparin Sodium (Porcine) (Heparin Na) 5,000 unit SC Q8 [facility] Last Admin: 05/19/18 05:28 Dose: 5,000 unit Thiamine HCl 100 mg/ Sodium (Chloride) 51 mls @ 200 mls/hr IV DAILY [facility] Last Admin: 05/18/18 10:37 Dose: 200 mls/hr Norepinephrine Bitartrate 8 mg (/ Dextrose) 258 mls @ 9.68 mls/hr IV .[id number] [facility] Last Admin: 05/18/18 21:25 Dose: 9.68 mls/hr Vancomycin IV Pharmacy to Dose (1 ea/ Sodium Chloride) 500 mls @ 250 mls/hr IV X1 PRN; Protocol PRN Reason: Rx to Dose Meropenem 500 mg/ Sodium (Chloride) 60 mls @ 100 mls/hr IV Q8 [facility] Last Admin: 05/19/18 05:27 Dose: 100 mls/hr Vancomycin HCl () 500 mg in 100 mls @ 100 mls/hr IV Q12H [facility] Last Admin: 05/19/18 04:00 Dose: 100 mls/hr Famotidine 20 mg/ Sodium (Chloride) 10 mls @ 300 mls/hr IV Q24 [facility] Last Admin: 05/18/18 10:37 Dose: 300 mls/hr Potassium Chloride 40 meq/ (Sodium Chloride) 120 mls @ 100 mls/hr IV BOLUS X1 ONE Stop: 05/19/18 10:11 Lactated Ringer's () 1,000 mls @ 999 mls/hr IV .Q1H1M [facility] Stop: 05/19/18 08:35 Last Admin: 05/19/18 07:38 Dose: 999 mls/hr Lorazepam (Ativan) 1 mg PO Q4H PRN PRN PRN Reason: ANXIETY Magnesium Hydroxide (Milk Of Magnesia) 30 ml PO DAILY PRN PRN Reason: Constipation Mirtazapine (Remeron) 7.5 mg PO QHS PRN PRN Reason: SLEEP Ondansetron HCl (Zofran) 8 mg PO Q8H PRN PRN PRN Reason: NAUSEA Ondansetron HCl (Zofran) 4 mg IV Q6H PRN PRN PRN Reason: NAUSEA/VOMITING Last Admin: 05/19/18 04:05 Dose: 4 mg Oxycodone HCl (Oxyir) 5 mg PO Q6H PRN PRN PRN Reason: PAIN Sodium Chloride () 10 ml IV UD PRN PRN Reason: VAD FLUSH Last Admin: 05/19/18 06:21 Dose: 10 ml Sodium Chloride () 10 ml IV UD PRN PRN Reason: VAD FLUSH Last Admin: 05/18/18 13:36 Dose: 10 ml Code Visit Inpatient E&M: 31706 Subs Hosp L3
--- NOTE | 2018-05-19 09:17 | CASEMGMT ---
SW participated in ICU rounds this morning, spoke w/pt after rounds. SW confirmed w/pt she lives alone and is normally independent. SW spoke w/pt about possibly needing to go somewhere for rehab, pt has not done this in the past. SW asked pt about her mental health, how she is managing. Pt states, I need a walker. SW inquired if pt is in counseling at this time, she states she does not want counseling. SW asked about medication, pt states she takes Valium. Pt quite sleepy this morning, struggling to stay awake to speak w/SW. RN entered room for care, SW will speak w/pt again when more appropriate. GIL Bolton, DIRECTOR OF SCIENCE
[2018-05-19] MEDS: Famotidine 20mg IV Push Syringe Q24 300 MG IV (09:31)
[2018-05-19] MEDS: Menthol/Lanolin/Calamine/Znox 113 GM Tube 1 APPLIC TOPICAL ×2 (09:32→21:13)
--- NOTE | 2018-05-19 09:45 | CASEMGMT ---
ED SW placed copies of living will and POA in chart. GIL Bolton, STATION EXAMINER
[2018-05-19 12:05] LABS: Bedside Glucose 110 mg/dL (70-110)
[2018-05-19 12:43] LABS: Anion Gap 12 (5-15); BUN 8 mg/dL (7-18); BUN/Creat Ratio 5.7 RATIO (10-20); Calcium,Total 7.3 mg/dL (8.5-10.1); Chloride 116 mmol/L (98-107); EST Glomerular Filtration Rate 42 mL/min (>60); Est Glom Filt Rate - Afr Amer 50 mL/min (>60); Estimated Creatinine Clearance 39.62 ml/min; Glucose 97 mg/dL (74-106); Potassium 3.9 mmol/L (3.5-5.1); Sodium Level 146 mmol/L (136-145)
--- NOTE | 2018-05-19 12:59 | PCM.PN.REN ---
Patient Problems: Active and Suspected Problems (Last Reviewed 05/16/18 @ 20:50 by Sohan Waddell MD) Acute kidney injury (Acute) Hypokalemia (Acute) Abnormal EKG (Acute) Hyponatremia (Acute) Nausea vomiting and diarrhea (Acute) Small cell lung cancer (Acute) Subjective: no new complaints - Physical Exam General: Alert, Oriented x3, Cooperative HEENT: Atraumatic, PERRLA, EOMI, Normocephalic Neck: Supple, No JVD, Negative Carotid Bruits Lungs: Clear to auscultation, Normal air movement Cardiovascular: Regular rate, No murmurs Abdomen: Bowel Sounds Present, Soft, Non Tender Extremities: No edema, Capillary Refill Less than 3 Seconds Skin: No rashes, No breakdown Musculoskeletal: No Tenderness to Palpation of Joints or Extremities Neurological: Cranial nerves II-XII grossly intact Psych/Mental Status: Normal Affect, Appropriate Vital Signs Temp Pulse Resp BP Pulse Ox 100.2 F H 120 H 23 H 99/88 H 100 05/19/18 12:00 05/19/18 12:00 05/19/18 12:00 05/19/18 12:17 05/19/18 12:00 Oxygen Flow Rate (L/min) 2 Oxygen Delivery Method Room Air Weight: 54 kg Body Mass Index (BMI) 19.5 Intake and Output for Last 24 Hours 05/17/18 05/18/18 05/19/18 23:59 23:59 23:59 Intake Total 1641 / 1641 4060 / 4060 1822 / 1822 Output Total 1600 / 1600 3675 / 3675 875 / 875 Balance 41 / 41 385 / 385 947 / 947 Microbiology Past 72 Hours 05/17/18 12:45 Blood Culture - Preliminary Blood Culture (Wb) - Port No growth in 48 hours. 05/17/18 15:15 Urine Culture - Preliminary Urine Catheter - [place] Culture exhibits no growth. 05/16/18 19:05 Blood Culture - Preliminary Blood Culture (Wb) - Left Hand No growth in 48 hours. 05/16/18 17:35 Blood Culture - Preliminary Blood Culture (Wb) - Port No growth in 48 hours. 05/16/18 18:00 Urine Culture - Final Urine, Clean Catch Culture exhibits no growth. 05/16/18 21:30 Enteric Bacteriology - Final Stool 10/02/18 21:30 C. difficile DNA Amplification - Final Stool Laboratory Tests Past 24 Hrs 05/18/18 05/19/18 05/19/18 12:25 03:15 03:15 WBC 3.8 L RBC 4.40 Hgb 12.0 Hct 33.6 L MCV 76.4 L MCH 27.3 MCHC 35.7 RDW 17.3 H RDW Differential 48.4 H Plt Count 183 MPV 9.1 Immature Gran % (Auto) 0.000 Neut % (Auto) 70.6 H Lymph % (Auto) 22.0 [place] % (Auto) 4.2 Eos % (Auto) 2.9 Baso % (Auto) 0.3 Absolute Neuts (auto) 2.7 Absolute Lymphs (auto) 0.84 Total Counted Not Reportable Platelet Estimate ADEQUATE Anisocytosis RARE Sodium 143 Potassium 2.3 L* 2.8 L Chloride 114 H Carbon Dioxide 18.0 L Anion Gap 11 BUN 8 Creatinine 1.31 H Estim Creat Clear Calc 42.89 Est GFR (MDRD) Af Amer 54 L Est GFR (MDRD) Non-Af 45 L BUN/Creatinine Ratio 6.1 L Glucose 82 Calcium 7.6 L Phosphorus Magnesium Cortisol Vancomycin Trough 05/19/18 05/19/18 05/19/18 03:15 03:15 06:25 WBC RBC Hgb Hct MCV MCH MCHC RDW RDW Differential Plt Count MPV Immature Gran % (Auto) Neut % (Auto) Lymph % (Auto) [place] % (Auto) Eos % (Auto) Baso % (Auto) Absolute Neuts (auto) Absolute Lymphs (auto) Total Counted Platelet Estimate Anisocytosis Sodium Potassium Chloride Carbon Dioxide Anion Gap BUN Creatinine Estim Creat Clear Calc Est GFR (MDRD) Af Amer Est GFR (MDRD) Non-Af BUN/Creatinine Ratio Glucose Calcium Phosphorus 3.5 Magnesium 3.5 H Cortisol 9.60 Vancomycin Trough 18.9 H 05/19/18 12:00 WBC RBC Hgb Hct MCV MCH MCHC RDW RDW Differential Plt Count MPV Immature Gran % (Auto) Neut % (Auto) Lymph % (Auto) [place] % (Auto) Eos % (Auto) Baso % (Auto) Absolute Neuts (auto) Absolute Lymphs (auto) Total Counted Platelet Estimate Anisocytosis Sodium 146 H Potassium 3.9 Chloride 116 H Carbon Dioxide 18.0 L Anion Gap 12 BUN 8 Creatinine 1.40 H Estim Creat Clear Calc 39.62 Est GFR (MDRD) Af Amer 50 L Est GFR (MDRD) Non-Af 42 L BUN/Creatinine Ratio 5.7 L Glucose 97 Calcium 7.3 L Phosphorus Magnesium Cortisol Vancomycin Trough POC Glucose 05/19/18 05/19/18 05/18/18 12:01 05:29 23:26 POC Glucose 110 88 91 Medical Necessity - Tobacco Use Smoking Status: Current every day smoker Tobacco Use: Cigarettes Assessment/Plan All Active Problems (Last Reviewed 05/16/18 @ 20:50 by Sohan Waddell MD) Acute kidney injury (Acute) Hypokalemia (Acute) Abnormal EKG (Acute) Hyponatremia (Acute) Nausea vomiting and diarrhea (Acute) Pulmonary embolism (Acute) Periodontal disease (Acute) Nausea & vomiting (Acute) Headache (Acute) Encounter for adjustment or management of vascular access device (Acute) Small cell lung cancer (Acute) Regional lymph node metastasis present (Acute) Lung metastasis (Acute) MEAGAN. likely related to volume depletion. 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 Opdivo is not known to cause fanconis syndrome. bicarbonate better phos normal now Mg repleted she continues to have some diarrhea which might be causing K losses Hyponatremia. likely hypovolemic. better d/w Dr branch
[2018-05-19] MEDS: Loperamide 2 MG Capsule PO ×2 (13:09→21:08)
[2018-05-19] MEDS: Aspirin 81 MG TAB.CHEW PO (13:10)
[2018-05-19] MEDS: Hydrocortisone Sod Succinate 100 MG/2 ML Vial IV ×2 (15:34→21:12)
[2018-05-19 17:37] LABS: Bedside Glucose 138 mg/dL (70-110)
[2018-05-19] MEDS: Atorvastatin Calcium 80 MG Tablet PO (21:08)
[2018-05-19 23:41] LABS: Bedside Glucose 153 mg/dL (70-110)
[2018-05-20] VITALS (36 sets, daily range): BP systolic 78–114; BP diastolic 61–88; PULSE 90–111; RESP 14–23; TEMP 35.8–36.3; O2SAT 97–100
--- NOTE | 2018-05-20 01:41 | NURSING ---
Pt. given water and cranberry juice nectar thickened and had a consistent dry cough after drinking both. Pt. was seated in an upright position while drinking. Told pt. that will make her NPO until speech can re-evaluate her. Drinks moved from pt's reach.
[2018-05-20] MEDS: Vancomycin IV 500 MG/100 ML BAG 100 MG IV ×2 (02:33→15:56)
[2018-05-20] MEDS: Heparin Injection (Vial) 5,000 UNIT/ML VIAL 5000 UNIT SC ×3 (05:10→22:17)
[2018-05-20] MEDS: Hydrocortisone Sod Succinate 100 MG/2 ML Vial IV ×3 (05:10→22:17)
[2018-05-20] MEDS: 0.9% NaCl VAD Flush 10 ML IV ×3 (05:11→22:17)
[2018-05-20 05:48] LABS: Anion Gap 13 (5-15); BUN 12 mg/dL (7-18); BUN/Creat Ratio 8.6 RATIO (10-20); Calcium,Total 7.3 mg/dL (8.5-10.1); Chloride 110 mmol/L (98-107); Creatinine, Serum 1.39 mg/dL (0.55-1.02); EST Glomerular Filtration Rate 42 mL/min (>60); Est Glom Filt Rate - Afr Amer 51 mL/min (>60); Estimated Creatinine Clearance 40.64 ml/min; Glucose 161 mg/dL (74-106); Magnesium 2.8 mg/dL (1.6-2.6); Phosphorus 4.7 mg/dL (2.5-4.9); Potassium 2.9 mmol/L (3.5-5.1); Sodium Level 141 mmol/L (136-145)
[2018-05-20 05:53] LABS: Absolute Lymphocyte Count 0.66 X10^3/ul (0.83-4.51); Absolute Neutrophil Count 2.9 X10^3/uL (2.0-7.7); Basophil# 0.02 X10^3/uL; Basophil% 0.6 % (0-1); Hematocrit 26.7 % (37-47); Hemoglobin 9.6 g/dl (12.0-15.0); Lymphocyte # 0.66 X10^3/ul (4.0); Lymphocyte % 18.2 % (19-41); Mean Corpuscular Volume 77.4 fL (81-99); Monocyte# 0.07 X10^3/uL; Monocyte% 1.9 % (0-10); Neutrophil # 2.87 X10^3/uL (2.7-7.7); Platelet Count 196 K/mm3 (150-450); RBC Distribution Width CV 18.1 % (11.6-14.6); RBC Distribution Width SD 48.7 fl (35.1-43.9); Red Blood Count 3.45 M/mm3 (4.2-5.4); White Blood Count 3.6 K/mm3 (4.4-11.0)
[2018-05-20 05:54] LABS: Mean Corpuscular Hgb 27.8 pg (27.0-32.0); POSITIVE COUNT YES; POSITIVE DIFFERENTIAL NO; POSITIVE MORPHOLOGY NO
[2018-05-20 05:55] LABS: Differential Indicated SCAN CRITERIA MET
--- NOTE | 2018-05-20 06:43 | PN_ITS ---
Subjective: The patient was seen and examined at the bedside this morning. Events from the last 24 hours have been reviewed. The patient is a bit hypothermic this morning, but is maintaining appropriate oxygen saturations on room air. Her Levophed requirement has been decreased this morning to 5 mics. Nursing staff did report that the patient was coughing overnight with ingestion of liquids. Therefore, she was made n.p.o. until reevaluation by speech therapy this morning. Potassium was also low this morning at 2.9. Objective: The patient's most recent lab work, culture data and imaging studies have all been personally reviewed. Blood and urine cultures have shown no growth to date. C. difficile was negative. Ova and parasites are pending. Surface echocardiogram revealed normal LV size and thickness with an ejection fraction of 60%. Pulmonary artery systolic pressure was unable to be estimated. General: Alert, No apparent distress, - - A bit disoriented this morning. HEENT: Atraumatic, PERRLA, Normocephalic Oral: Dry Mucosa Neck: Supple, No Nodes, Trachea Midline Lungs: No rhonchi, No wheeze, No rales, Diminished Cardiovascular: Normal S1, Normal S2, No murmurs, Tachycardic Abdomen: Bowel Sounds Present, Soft, Non Tender Extremities: No cyanosis, No edema, Clubbing Skin: No breakdown Musculoskeletal: No Tenderness to Palpation of Joints or Extremities Lymphatic: No Cervical, Supraclavicular, or Inguinal Adenopathy Neurological: Neuro grossly intact Psych/Mental Status: Flat Affect Vital Signs Temp Pulse Resp BP Pulse Ox 96.4 F L 94 21 H 85/66 L 100 05/20/18 06:00 05/20/18 06:30 05/20/18 06:30 05/20/18 06:30 05/20/18 06:30 Oxygen Flow Rate (L/min) 2 Oxygen Delivery Method Room Air Weight: 121 lb 4.068 oz Body Mass Index (BMI) 19.5 Intake and Output for Last 24 Hours 05/18/18 05/19/18 05/20/18 23:59 23:59 23:59 Intake Total 4060 / 4060 3315 / 3315 363.6 / 363.6 Output Total 3675 / 3675 1400 / 1400 250 / 250 Balance 385 / 385 1915 / 1915 113.6 / 113.6 Labs (Last 48 Hours) 05/18/18 05/18/18 05/18/18 12:25 12:25 12:34 WBC RBC Hgb Hct MCV MCH MCHC RDW RDW Differential Plt Count MPV Immature Gran % (Auto) Neut % (Auto) Lymph % (Auto) Amador % (Auto) Eos % (Auto) Baso % (Auto) Absolute Neuts (auto) Absolute Lymphs (auto) Total Counted Platelet Estimate Anisocytosis Sodium Potassium 2.3 L* Chloride Carbon Dioxide Anion Gap BUN Creatinine Estim Creat Clear Calc Est GFR (MDRD) Af Amer Est GFR (MDRD) Non-Af BUN/Creatinine Ratio Glucose Calcium Phosphorus Magnesium 1.4 L Cortisol Vancomycin Trough POC Glucose 112 H 05/18/18 05/19/18 05/19/18 23:26 03:15 03:15 WBC 3.8 L RBC 4.40 Hgb 12.0 Hct 33.6 L MCV 76.4 L MCH 27.3 MCHC 35.7 RDW 17.3 H RDW Differential 48.4 H Plt Count 183 MPV 9.1 Immature Gran % (Auto) 0.000 Neut % (Auto) 70.6 H Lymph % (Auto) 22.0 Amador % (Auto) 4.2 Eos % (Auto) 2.9 Baso % (Auto) 0.3 Absolute Neuts (auto) 2.7 Absolute Lymphs (auto) 0.84 Total Counted Not Reportable Platelet Estimate ADEQUATE Anisocytosis RARE Sodium 143 Potassium 2.8 L Chloride 114 H Carbon Dioxide 18.0 L Anion Gap 11 BUN 8 Creatinine 1.31 H Estim Creat Clear Calc 42.89 Est GFR (MDRD) Af Amer 54 L Est GFR (MDRD) Non-Af 45 L BUN/Creatinine Ratio 6.1 L Glucose 82 Calcium 7.6 L Phosphorus Magnesium Cortisol Vancomycin Trough POC Glucose 91 05/19/18 05/19/18 05/19/18 03:15 03:15 05:29 WBC RBC Hgb Hct MCV MCH MCHC RDW RDW Differential Plt Count MPV Immature Gran % (Auto) Neut % (Auto) Lymph % (Auto) Amador % (Auto) Eos % (Auto) Baso % (Auto) Absolute Neuts (auto) Absolute Lymphs (auto) Total Counted Platelet Estimate Anisocytosis Sodium Potassium Chloride Carbon Dioxide Anion Gap BUN Creatinine Estim Creat Clear Calc Est GFR (MDRD) Af Amer Est GFR (MDRD) Non-Af BUN/Creatinine Ratio Glucose Calcium Phosphorus 3.5 Magnesium 3.5 H Cortisol Vancomycin Trough 18.9 H POC Glucose 88 05/19/18 05/19/18 05/19/18 06:25 12:00 12:01 WBC RBC Hgb Hct MCV MCH MCHC RDW RDW Differential Plt Count MPV Immature Gran % (Auto) Neut % (Auto) Lymph % (Auto) Amador % (Auto) Eos % (Auto) Baso % (Auto) Absolute Neuts (auto) Absolute Lymphs (auto) Total Counted Platelet Estimate Anisocytosis Sodium 146 H Potassium 3.9 Chloride 116 H Carbon Dioxide 18.0 L Anion Gap 12 BUN 8 Creatinine 1.40 H Estim Creat Clear Calc 39.62 Est GFR (MDRD) Af Amer 50 L Est GFR (MDRD) Non-Af 42 L BUN/Creatinine Ratio 5.7 L Glucose 97 Calcium 7.3 L Phosphorus Magnesium Cortisol 9.60 Vancomycin Trough POC Glucose 110 05/19/18 05/19/18 05/20/18 17:31 23:34 05:10 WBC 3.6 L RBC 3.45 L Hgb 9.6 L Hct 26.7 L MCV 77.4 L MCH 27.8 MCHC 36.0 RDW 18.1 H RDW Differential 48.7 H Plt Count 196 MPV 9.0 Immature Gran % (Auto) 0.300 Neut % (Auto) 79.0 H Lymph % (Auto) 18.2 L Amador % (Auto) 1.9 Eos % (Auto) 0.0 Baso % (Auto) 0.6 Absolute Neuts (auto) 2.9 Absolute Lymphs (auto) 0.66 L Total Counted Not Reportable Platelet Estimate Anisocytosis Sodium Potassium Chloride Carbon Dioxide Anion Gap BUN Creatinine Estim Creat Clear Calc Est GFR (MDRD) Af Amer Est GFR (MDRD) Non-Af BUN/Creatinine Ratio Glucose Calcium Phosphorus Magnesium Cortisol Vancomycin Trough POC Glucose 138 H 153 H 05/20/18 05:10 WBC RBC Hgb Hct MCV MCH MCHC RDW RDW Differential Plt Count MPV Immature Gran % (Auto) Neut % (Auto) Lymph % (Auto) Amador % (Auto) Eos % (Auto) Baso % (Auto) Absolute Neuts (auto) Absolute Lymphs (auto) Total Counted Platelet Estimate Anisocytosis Sodium 141 Potassium 2.9 L Chloride 110 H Carbon Dioxide 18.0 L Anion Gap 13 BUN 12 Creatinine 1.39 H Estim Creat Clear Calc 40.64 Est GFR (MDRD) Af Amer 51 L Est GFR (MDRD) Non-Af 42 L BUN/Creatinine Ratio 8.6 L Glucose 161 H Calcium 7.3 L Phosphorus 4.7 Magnesium 2.8 H Cortisol Vancomycin Trough POC Glucose Microbiology 05/17/18 12:45 Blood Culture (Wb) - Port Blood Culture - Preliminary No growth in 48 hours. 05/17/18 15:15 Urine Catheter - [place] Urine Culture - Preliminary Culture exhibits no growth. 05/16/18 19:05 Blood Culture (Wb) - Left Hand Blood Culture - Preliminary No growth in 48 hours. 05/16/18 17:35 Blood Culture (Wb) - Port Blood Culture - Preliminary No growth in 48 hours. 05/16/18 18:00 Urine, Clean Catch Urine Culture - Final Culture exhibits no growth. Clinical Impression(s) from Imaging Studies Chest X-Ray 05/16/18 17:35 IMPRESSION: Stable x-ray examination of the chest since CT chest/thorax November 17, 2017, as described. Electronically Signed: Ken Real MD at 17:56 EDT , Service support , Chest X-Ray 05/17/18 12:21 IMPRESSION: 1. Stable chronic right perihilar stranding. 2. Subcentimeter faint nodular density projecting in left base is likely an artifact. 3. Right chest wall [employer] again noted. Electronically Signed: Ken Real MD at 13:33 EDT , Service support , Medical Necessity - Tobacco Use Smoking Status: Current every day smoker Tobacco Use: Cigarettes Assessment/Plan All Active Problems (Last Reviewed 05/16/18 @ 20:50 by Sohan Waddell MD) Acute kidney injury (Acute) Hypokalemia (Acute) Abnormal EKG (Acute) Hyponatremia (Acute) Nausea vomiting and diarrhea (Acute) Pulmonary embolism (Acute) Periodontal disease (Acute) Nausea & vomiting (Acute) Headache (Acute) Encounter for adjustment or management of vascular access device (Acute) Small cell lung cancer (Acute) Regional lymph node metastasis present (Acute) Lung metastasis (Acute) RECOMMENDATIONS: 1. Continue to wean Levophed to maintain a mean arterial pressure at or above 65 mmHg. 2. Continue empiric antibiotics. 3. Patient to remain n.p.o. until reevaluation by speech therapy this morning. 4. Continue stress dose steroids. Continue weaning once vasopressor requirement has decreased. 5. Potassium repletion IMPRESSIONS: 1. Septic shock of unclear etiology Patient is currently immunosuppressed secondary to chemotherapy. Patient did de velop fever and hypotension, which may be secondary to gastrointestinal infection and subsequent GI losses. Her hemodynamics have improved in the setting of volume expansion and stress dose steroid therapy. She will also remain on empiric antibiotics, pending finalized infectious workup. Levophed will be weaned to maintain a mean arterial pressure at or above 65 mmHg. The patient stress dose steroids can be weaned once the Levophed has been discontinued. 2. Acute kidney injury secondary to hypovolemia secondary to gastroenteritis Improving. Clinical suspicion for prerenal etiology secondary to volume loss from gastroenteritis. No indication for renal replacement therapy at this time. Continue with supportive care. 3. Hypokalemia Patient continues to have very suppressed potassium levels. Patient's phosphorus is now repleted. We will continue with aggressive potassium repletion. Clinical suspicion for GI losses. 4. Small cell lung cancer of the right lung Patient currently receiving immunotherapy at [facility]. Oncology is currently following. 5. Severe protein calorie malnutrition/debility/recurrent hypoglycemia/bipolar/minimal tobacco abuse Complicates care, management, recovery and prognosis. The patient is once again to remain n.p.o. until reevaluation by speech therapy. TIME: 35 minutes of critical care time, independent of procedures, was spent addressing the patient's septic shock, acute kidney injury, presumptive gastroenteritis, hypokalemia, small cell lung cancer, review of all data and collaboration with the care team. ([id number]) Code Visit [id number]: [id number] Critical care first hour
--- NOTE | 2018-05-20 07:42 | PN_ITS ---
Patient Problems: Active and Suspected Problems (Last Reviewed 05/16/18 @ 20:50 by Sohan Waddell MD) Acute kidney injury (Acute) Hypokalemia (Acute) Abnormal EKG (Acute) Hyponatremia (Acute) Nausea vomiting and diarrhea (Acute) Small cell lung cancer (Acute) Subjective: Patient is awake and responding to simple questions. No fever last night but patient was a little hypothermic, temperature 96.4-97.0 Fahrenheit. Currently on 5 mcg/min of Levophed drip. Patient is being evaluated by speech therapist. Currently n.p.o. patient has cough, mainly dry. Vitals/I&O's: Vital Signs Temp Pulse Resp BP Pulse Ox 96.4 F L 100 18 100/77 100 05/20/18 06:00 05/20/18 07:38 05/20/18 06:45 05/20/18 06:45 05/20/18 06:45 Oxygen Flow Rate (L/min) 2 Oxygen Delivery Method Room Air Weight: 121 lb 4.068 oz Body Mass Index (BMI) 19.5 Intake and Output for Last 24 Hours 05/18/18 05/19/18 05/20/18 23:59 23:59 23:59 Intake Total 4060 / 4060 3315 / 3315 363.6 / 363.6 Output Total 3675 / 3675 1400 / 1400 250 / 250 Balance 385 / 385 1915 / 1915 113.6 / 113.6 General: Alert, Cooperative, Confused, Disoriented - Disorientation to time HEENT: Atraumatic, PERRLA, EOMI, Normocephalic Neck: Supple, No JVD, Negative Carotid Bruits Lungs: Diminished, Rhonchi, Wheezes Cardiovascular: Regular rate, Regular Rhythm, Normal S1, Normal S2, No murmurs Abdomen: Bowel Sounds Present, Soft, Non Tender, Non-Distended Extremities: No edema, Capillary Refill Less than 3 Seconds Skin: Rash Present - Maculopapular, patchy rash present over face. Musculoskeletal: No Tenderness to Palpation of Joints or Extremities, Arthritic Changes, Muscle Wasting Neurological: Cranial nerves II-XII grossly intact, Neuro grossly intact Psych/Mental Status: Normal Affect, Appropriate Microbiology Past 72 Hours 05/17/18 12:45 Blood Culture (Wb) - Port Blood Culture - Preliminary No growth in 48 hours. 05/17/18 15:15 Urine Catheter - Mcdermott Urine Culture - Preliminary Culture exhibits no growth. 05/16/18 19:05 Blood Culture (Wb) - Left Hand Blood Culture - Preliminary No growth in 48 hours. 05/16/18 17:35 Blood Culture (Wb) - Port Blood Culture - Preliminary No growth in 48 hours. 05/16/18 18:00 Urine, Clean Catch Urine Culture - Final Culture exhibits no growth. 05/16/18 21:30 Stool Enteric Bacteriology - Final Laboratory Results 05/19/18 06:25: Cortisol 9.60 05/19/18 12:00: Sodium 146 H, Potassium 3.9, Chloride 116 H, Carbon Dioxide 18.0 L, Anion Gap 12, BUN 8, Creatinine 1.40 H, Estim Creat Clear Calc 39.62, Est GFR (MDRD) Af Amer 50 L, Est GFR (MDRD) Non-Af 42 L, BUN/Creatinine Ratio 5.7 L, Glucose 97, Calcium 7.3 L 05/19/18 12:01: POC Glucose 110 05/19/18 17:31: POC Glucose 138 H 05/19/18 23:34: POC Glucose 153 H 05/20/18 05:10: WBC 3.6 L, RBC 3.45 L, Hgb 9.6 L, Hct 26.7 L, MCV 77.4 L, MCH 27.8, MCHC 36.0, RDW 18.1 H, RDW Differential 48.7 H, Plt Count 196, MPV 9.0, Immature Gran % (Auto) 0.300, Neut % (Auto) 79.0 H, Lymph % (Auto) 18.2 L, Garden % (Auto) 1.9, Eos % (Auto) 0.0, Baso % (Auto) 0.6, Absolute Neuts (auto) 2.9, Absolute Lymphs (auto) 0.66 L, Total Counted Not Reportable 05/20/18 05:10: Sodium 141, Potassium 2.9 L, Chloride 110 H, Carbon Dioxide 18.0 L, Anion Gap 13, BUN 12, Creatinine 1.39 H, Estim Creat Clear Calc 40.64, Est GFR (MDRD) Af Amer 51 L, Est GFR (MDRD) Non-Af 42 L, BUN/Creatinine Ratio 8.6 L, Glucose 161 H, Calcium 7.3 L, Phosphorus 4.7, Magnesium 2.8 H Current Medications Acetaminophen (Tylenol) 650 mg RECTAL Q6H PRN PRN PRN Reason: Fever >101 Last Admin: 05/18/18 20:18 Dose: 650 mg Albuterol/Ipratropium (Duoneb) 3 ml INHALATION Q6H PRN PRN PRN Reason: Shortness of breath/Wheeze Aspirin (Aspirin, Baby) 81 mg PO DAILY@0800 [facility] Last Admin: 05/19/18 13:10 Dose: 81 mg Atorvastatin Calcium (Lipitor) 80 mg PO QHS [facility] Last Admin: 05/19/18 21:08 Dose: 80 mg Calamine/Phenol (Calmoseptine Ointment) 1 applic TOPICAL BID [facility]; Protocol Last Admin: 05/19/18 21:13 Dose: 1 applicatio Chlorhexidine Gluconate () 1 each TOPICAL DAILY [facility] Last Admin: 05/19/18 04:00 Dose: 1 each Cyclobenzaprine HCl (Cyclobenzaprine Hcl) 5 mg PO TID PRN PRN Reason: ANXIETY Heparin Sodium (Beef Lung) (Heparin 500 Unit/5 Ml (100/Ml)) 500 unit IV UD PRN PRN Reason: HEPARIN FLUSH Heparin Sodium (Porcine) (Heparin Na) 5,000 unit SC Q8 [facility] Last Admin: 05/20/18 05:10 Dose: 5,000 unit Hydrocortisone Sodium Succinate (Solu-Cortef) 100 mg IV Q8 [facility] Last Admin: 05/20/18 05:10 Dose: 100 mg Thiamine HCl 100 mg/ Sodium (Chloride) 51 mls @ 200 mls/hr IV DAILY [facility] Last Admin: 05/19/18 10:38 Dose: 200 mls/hr Vancomycin IV Pharmacy to Dose (1 ea/ Sodium Chloride) 500 mls @ 250 mls/hr IV X1 PRN; Protocol PRN Reason: Rx to Dose Meropenem 500 mg/ Sodium (Chloride) 60 mls @ 100 mls/hr IV Q8 [facility] Last Admin: 05/20/18 05:10 Dose: 100 mls/hr Vancomycin HCl () 500 mg in 100 mls @ 100 mls/hr IV Q12H [facility] Last Admin: 05/20/18 02:33 Dose: 100 mls/hr Famotidine 20 mg/ Sodium (Chloride) 10 mls @ 300 mls/hr IV Q24 [facility] Last Admin: 05/19/18 09:31 Dose: 300 mls/hr Norepinephrine Bitartrate 8 mg (/ Dextrose) 258 mls @ 9.68 mls/hr IV .[id number] [facility]; Protocol Last Admin: 05/19/18 21:52 Dose: 9.68 mls/hr Potassium Chloride 40 meq/ (Sodium Chloride) 120 mls @ 100 mls/hr IV BOLUS X1 ONE Stop: 05/20/18 08:37 Potassium Chloride 40 meq/ (Sodium Chloride) 120 mls @ 100 mls/hr IV BOLUS X1 ONE Stop: 05/20/18 10:11 Insulin Human Lispro (Humalog Kwikpen (Bkc)) 0 unit SC Q6 [facility]; Protocol Loperamide HCl (Imodium) 2 mg PO Q2H PRN PRN PRN Reason: DIARRHEA/LOOSE STOOLS Last Admin: 05/19/18 21:08 Dose: 2 mg Lorazepam (Ativan) 1 mg PO Q4H PRN PRN PRN Reason: ANXIETY Magnesium Hydroxide (Milk Of Magnesia) 30 ml PO DAILY PRN PRN Reason: Constipation Mirtazapine (Remeron) 7.5 mg PO QHS PRN PRN Reason: SLEEP Ondansetron HCl (Zofran) 8 mg PO Q8H PRN PRN PRN Reason: NAUSEA Ondansetron HCl (Zofran) 4 mg IV Q6H PRN PRN PRN Reason: NAUSEA/VOMITING Last Admin: 05/19/18 04:05 Dose: 4 mg Oxycodone HCl (Oxyir) 5 mg PO Q6H PRN PRN PRN Reason: PAIN Sodium Chloride () 10 ml IV UD PRN PRN Reason: VAD FLUSH Last Admin: 05/20/18 05:14 Dose: 10 ml Sodium Chloride () 10 ml IV UD PRN PRN Reason: VAD FLUSH Last Admin: 05/18/18 13:36 Dose: 10 ml Medical Necessity - Tobacco Use Smoking Status: Current every day smoker Tobacco Use: Cigarettes Assessment/Plan All Active Problems (Last Reviewed 05/16/18 @ 20:50 by Soahn Waddell MD) Acute kidney injury (Acute) Hypokalemia (Acute) Abnormal EKG (Acute) Hyponatremia (Acute) Nausea vomiting and diarrhea (Acute) Pulmonary embolism (Acute) Periodontal disease (Acute) Nausea & vomiting (Acute) Headache (Acute) Encounter for adjustment or management of vascular access device (Acute) Small cell lung cancer (Acute) Regional lymph node metastasis present (Acute) Lung metastasis (Acute) There is a 52 female with history of COPD, right side limited small cell cancer on chemoradiation before and now on immunotherapy, follows Dr. Giraldo in [facility] was admitted yesterday night for 10 days history of nausea, vomiting, diarrhea, anorexia and poor oral intake, lethargic with altered mental status and severe electrolyte imbalance to stepdown. The patient was initially resuscitated with IV fluid normal saline, electrolyte repletion and bicarb drip for severe metabolic acidosis. Patient was later transferred to ICU. Discussed with the oncologist team and Dr. Mckeon. 1. Septic shock of unclear etiology: Patient is currently admitted in ICU. C. difficile and enteric bacteriology panel are negative. Blood culture drawn on 05/16 and then in ICU, 05/17 did not show growth for more than 48 hours. On IV fluid resuscitation. Started on Levophed drip, on taper to keep map more than 65. Currently on IV vancomycin and meropenem for broad-spectrum coverage. 2. Severe electrolyte imbalance with high anion gap metabolic acidosis with compensatory respiratory alkalosis, most probably secondary to diarrhea, or Fanconi syndrome/possible endocrinopathy secondary to immunotherapy: Hypokalemia, hypophosphatemia and hyponatremia: Potassium was 2.0 and still fluctuates. Currently 2.9. Phosphorus 4.7. Magnesium 2.8. Serum cortisol level normal, 9.6. gastroenteritis, nausea, vomiting, diarrhea secondary to chemotherapy/immunotherapy. 3. Acute kidney injury most probably secondary to hypovolemia/prerenal etiology and ATN, probably ischemic or secondary to chemotherapy: Monitor creatinine and electrolytes as mentioned above. Clock Mechanic consult reviewed. Creatinine remains stable. Urine electrolytes 6 sodium 69, potassium 28, chloride 93, creatinine 25.9. Creatinine is still elevated 1.39, BUN normal even after aggressive fluid resuscitation 4. Abnormal EKG: Patient had ST depression in inferolateral leads and slight ST elevation in aVR. Discussed with Dr. Blue and he thinks there is no coronary event as patient troponins are negative. It may be secondary to electrolyte imbalance: Echo on 05/16 shows EF 60% with normal LV size. No regional wall motion abnormality. Normal right and left atria. Normal right ventricle. No significant valvular pathology. 5. Right-sided small cell lung cancer with history of multiple chemoradiation, currently immunotherapy ipilimumab and nivolumab at [facility] under the care of Dr. Cabral. Discussed with the oncologist Radha FRIEDMAN. patient completed 4 cycles nivolumab/ipilimumab, last dose on 05/05/18 at the [facility]. Severe protein calorie malnutrition: Rn Digestive consult. 6. 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 Multiple comorbidities complicates the present care and expect difficult and delay recovery. Poor prognosis. DVT prophylaxis: On heparin 5000 subcutaneous 3 times daily. Microbiology Past 72 Hours 05/17/18 12:45 Blood Culture (Wb) - Port Blood Culture - Preliminary No growth in 48 hours. 05/17/18 15:15 Urine Catheter - Mcdermott Urine Culture - Preliminary Culture exhibits no growth. 05/16/18 19:05 Blood Culture (Wb) - Left Hand Blood Culture - Preliminary No growth in 48 hours. 05/16/18 17:35 Blood Culture (Wb) - Port Blood Culture - Preliminary No growth in 48 hours. 05/16/18 18:00 Urine, Clean Catch Urine Culture - Final Culture exhibits no growth. 05/16/18 21:30 Stool Enteric Bacteriology - Final Laboratory Results 05/19/18 06:25: Cortisol 9.60 05/19/18 12:00: Sodium 146 H, Potassium 3.9, Chloride 116 H, Carbon Dioxide 18.0 L, Anion Gap 12, BUN 8, Creatinine 1.40 H, Estim Creat Clear Calc 39.62, Est GFR (MDRD) Af Amer 50 L, Est GFR (MDRD) Non-Af 42 L, BUN/Creatinine Ratio 5.7 L, Glucose 97, Calcium 7.3 L 05/19/18 12:01: POC Glucose 110 05/20/18 05:10: WBC 3.6 L, RBC 3.45 L, Hgb 9.6 L, Hct 26.7 L, MCV 77.4 L, MCH 27.8, MCHC 36.0, RDW 18.1 H, RDW Differential 48.7 H, Plt Count 196, MPV 9.0, Immature Gran % (Auto) 0.300, Neut % (Auto) 79.0 H, Lymph % (Auto) 18.2 L, Garden % (Auto) 1.9, Eos % (Auto) 0.0, Baso % (Auto) 0.6, Absolute Neuts (auto) 2.9, Absolute Lymphs (auto) 0.66 L, Total Counted Not Reportable 05/20/18 05:10: Sodium 141, Potassium 2.9 L, Chloride 110 H, Carbon Dioxide 18.0 L, Anion Gap 13, BUN 12, Creatinine 1.39 H, Estim Creat Clear Calc 40.64, Est GFR (MDRD) Af Amer 51 L, Est GFR (MDRD) Non-Af 42 L, BUN/Creatinine Ratio 8.6 L, Glucose 161 H, Calcium 7.3 L, Phosphorus 4.7, Magnesium 2.8 H Clinical Impression(s) from Imaging Studies Chest X-Ray 05/16/18 17:35 IMPRESSION: Stable x-ray examination of the chest since CT chest/thorax November 17, 2017, as described. Chest X-Ray 05/17/18 12:21 IMPRESSION: 1. Stable chronic right perihilar stranding. 2. Subcentimeter faint nodular density projecting in left base is likely an artifact. 3. Right chest wall MediPort again noted. Active Medications Acetaminophen (Tylenol) 650 mg RECTAL Q6H PRN PRN PRN Reason: Fever >101 Last Admin: 05/18/18 20:18 Dose: 650 mg Albuterol/Ipratropium (Duoneb) 3 ml INHALATION Q6H PRN PRN PRN Reason: Shortness of breath/Wheeze Aspirin (Aspirin, Baby) 81 mg PO DAILY@0800 [facility] Last Admin: 05/20/18 09:31 Dose: 81 mg Atorvastatin Calcium (Lipitor) 80 mg PO QHS [facility] Last Admin: 05/19/18 21:08 Dose: 80 mg Calamine/Phenol (Calmoseptine Ointment) 1 applic TOPICAL BID [facility]; Protocol Last Admin: 05/20/18 08:26 Dose: 1 applicatio Chlorhexidine Gluconate () 1 each TOPICAL DAILY [facility] Last Admin: 05/20/18 09:32 Dose: 1 each Cyclobenzaprine HCl (Cyclobenzaprine Hcl) 5 mg PO TID PRN PRN Reason: ANXIETY Heparin Sodium (Beef Lung) (Heparin 500 Unit/5 Ml (100/Ml)) 500 unit IV UD PRN PRN Reason: HEPARIN FLUSH Heparin Sodium (Porcine) (Heparin Na) 5,000 unit SC Q8 [facility] Last Admin: 05/20/18 05:10 Dose: 5,000 unit Hydrocortisone Sodium Succinate (Solu-Cortef) 100 mg IV Q8 [facility] Last Admin: 05/20/18 05:10 Dose: 100 mg Thiamine HCl 100 mg/ Sodium (Chloride) 51 mls @ 200 mls/hr IV DAILY [facility] Last Admin: 05/20/18 10:14 Dose: 200 mls/hr Vancomycin IV Pharmacy to Dose (1 ea/ Sodium Chloride) 500 mls @ 250 mls/hr IV X1 PRN; Protocol PRN Reason: Rx to Dose Meropenem 500 mg/ Sodium (Chloride) 60 mls @ 100 mls/hr IV Q8 [facility] Last Admin: 05/20/18 05:10 Dose: 100 mls/hr Vancomycin HCl () 500 mg in 100 mls @ 100 mls/hr IV Q12H [facility] Last Admin: 05/20/18 02:33 Dose: 100 mls/hr Famotidine 20 mg/ Sodium (Chloride) 10 mls @ 300 mls/hr IV Q24 [facility] Last Admin: 05/20/18 09:32 Dose: 300 mls/hr Norepinephrine Bitartrate 8 mg (/ Dextrose) 258 mls @ 9.68 mls/hr IV .[id number] [facility]; Protocol Last Admin: 05/19/18 21:52 Dose: 9.68 mls/hr Sodium Chloride () 250 mls @ 15 mls/hr IV .[id number] PRN PRN Reason: SALINE FLUSH Insulin Human Lispro (Humalog Kwikpen (Bkc)) 0 unit SC ACHS [facility]; Protocol Last Admin: 05/20/18 11:26 Dose: Not Given Loperamide HCl (Imodium) 2 mg PO Q2H PRN PRN PRN Reason: DIARRHEA/LOOSE STOOLS Last Admin: 05/20/18 10:19 Dose: 2 mg Lorazepam (Ativan) 1 mg PO Q4H PRN PRN PRN Reason: ANXIETY Magnesium Hydroxide (Milk Of Magnesia) 30 ml PO DAILY PRN PRN Reason: Constipation Mirtazapine (Remeron) 7.5 mg PO QHS PRN PRN Reason: SLEEP Ondansetron HCl (Zofran) 8 mg PO Q8H PRN PRN PRN Reason: NAUSEA Ondansetron HCl (Zofran) 4 mg IV Q6H PRN PRN PRN Reason: NAUSEA/VOMITING Last Admin: 05/19/18 04:05 Dose: 4 mg Oxycodone HCl (Oxyir) 5 mg PO Q6H PRN PRN PRN Reason: PAIN Sodium Chloride () 10 ml IV UD PRN PRN Reason: VAD FLUSH Last Admin: 05/20/18 05:14 Dose: 10 ml Sodium Chloride () 10 ml IV UD PRN PRN Reason: VAD FLUSH Last Admin: 05/18/18 13:36 Dose: 10 ml Code Visit Inpatient E&M: 63471 Subs Hosp L3
[2018-05-20] MEDS: Menthol/Lanolin/Calamine/Znox 113 GM Tube 1 APPLIC TOPICAL (08:26)
[2018-05-20] MEDS: Aspirin 81 MG TAB.CHEW PO (09:31)
[2018-05-20] MEDS: Famotidine 20mg IV Push Syringe Q24 300 MG IV (09:32)
[2018-05-20] MEDS: CHLORHEXIDINE GLUC 2% CLOTH 1 EACH TOWELETTE TOPICAL (09:32)
[2018-05-20] MEDS: Loperamide 2 MG Capsule PO ×2 (10:19→23:56)
--- NOTE | 2018-05-20 10:49 | CASEMGMT ---
Social Work Note SW met with pt to discuss mental health and to discuss discharge plans. SW introduced self and role at [facility]. Pt is alert and orientated, able to answer most questions appropriately. Pt states that she lives alone in a story home. Pt states that she was previously independent with ADLs. Pt states that she has one good friend that she is able to call for support. Pt states that she would like to return home at discharge and would like someone checking in on her a few times a week. SW educated pt on HHC, private aides, and waiver programs through [facility]. Pt states that she would prefer to return home at discharge with HHC. Pt denied wanting SNF placement at this time. SW provided pt with [facility] information and list of private duty aides. SW explained to pt that HHC will most likely need to be set up on Tuesday. Pt states she doesn't want to be here till Tuesday and that she can leave at any time. SW educated pt to the risk of leaving AMA. Pt states understanding. Pt states that she has a history of anxiety and depression. Pt states that she currently takes medication. Pt states that she was previously seeing a counselor but current denied seeing a counselor and denied counseling resources. Pt denied any current suicidal/homicidal thoughts/plans/ideations. Pt states that being at the hospital is making her depression worse. Pt informed this worker that she has cancer. SW offered support and empathy to pt. Plan: Pt wishes to discharge home at this time. It should be noted that PT/OT haven't been able to work with pt yet due to pt's medication levophed. Per physician notes, pt's levophed requirements dropped to 5 mics today. RN CM/SW will follow up with pt, most likely on Tuesday, to determine discharge plans. Samreen Saini LIGHTER, [employer] DEVELOPER
[2018-05-20 11:40] LABS: Bedside Glucose 108 mg/dL (70-110)
[2018-05-20 14:33] LABS: Anion Gap 10 (5-15); BUN 15 mg/dL (7-18); BUN/Creat Ratio 11.4 RATIO (10-20); Calcium,Total 7.2 mg/dL (8.5-10.1); Chloride 112 mmol/L (98-107); Creatinine, Serum 1.32 mg/dL (0.55-1.02); EST Glomerular Filtration Rate 45 mL/min (>60); Est Glom Filt Rate - Afr Amer 54 mL/min (>60); Glucose 121 mg/dL (74-106); Potassium 4.4 mmol/L (3.5-5.1); Sodium Level 139 mmol/L (136-145)
[2018-05-20 17:45] LABS: Bedside Glucose 133 mg/dL (70-110)
[2018-05-20] MEDS: Atorvastatin Calcium 80 MG Tablet PO (22:17)
[2018-05-20 23:00] LABS: Bedside Glucose 141 mg/dL (70-110)
[2018-05-21] VITALS (11 sets, daily range): BP systolic 94–109; BP diastolic 66–78; PULSE 93–110; RESP 18; TEMP 36.6–36.8; O2SAT 95–100
[2018-05-21] MEDS: Vancomycin IV 500 MG/100 ML BAG 100 MG IV (02:39)
[2018-05-21] MEDS: Heparin Injection (Vial) 5,000 UNIT/ML VIAL 5000 UNIT SC ×2 (05:43→14:01)
[2018-05-21] MEDS: Hydrocortisone Sod Succinate 100 MG/2 ML Vial IV ×3 (05:43→21:34)
[2018-05-21] MEDS: 0.9% NaCl VAD Flush 10 ML IV ×4 (05:43→21:34)
[2018-05-21 06:05] LABS: Anion Gap 12 (5-15); BUN 15 mg/dL (7-18); BUN/Creat Ratio 13.2 RATIO (10-20); Calcium,Total 7.3 mg/dL (8.5-10.1); Chloride 112 mmol/L (98-107); Creatinine, Serum 1.14 mg/dL (0.55-1.02); EST Glomerular Filtration Rate 53 mL/min (>60); Est Glom Filt Rate - Afr Amer 64 mL/min (>60); Estimated Creatinine Clearance 49.55 ml/min; Glucose 100 mg/dL (74-106); Potassium 3.2 mmol/L (3.5-5.1); Sodium Level 142 mmol/L (136-145)
[2018-05-21 07:00] LABS: Bedside Glucose 98 mg/dL (70-110)
--- NOTE | 2018-05-21 07:54 | PCM.PN.HOSP ---
Patient Problems: Active and Suspected Problems (Last Reviewed 05/16/18 @ 20:50 by Sohan Waddell MD) Acute kidney injury (Acute) Hypokalemia (Acute) Abnormal EKG (Acute) Hyponatremia (Acute) Nausea vomiting and diarrhea (Acute) Small cell lung cancer (Acute) Subjective: The patient was transferred to PCU yesterday, patient did not had fever for about 2 days. No growth on culture. Enteric bacteriology panel, C. difficile and urine culture all negative. Patient is awake and alert but seems irritable and she could not sleep for about 72 hours. Blood pressure is on lower side but I think that is normal and she has a small body size, lost a lot of weight on chemotherapy immunotherapy for small cell lung cancer Vitals/I&O's: Vital Signs Temp Pulse Resp BP Pulse Ox 97.8 F 110 H 18 106/67 98 05/21/18 05:37 05/21/18 07:07 05/21/18 05:37 05/21/18 05:37 05/21/18 07:15 Oxygen Flow Rate (L/min) 3 Oxygen Delivery Method Room Air Weight: 121 lb 0.54 oz Body Mass Index (BMI) 19.5 Intake and Output for Last 24 Hours 05/19/18 05/20/18 05/21/18 23:59 23:59 23:59 Intake Total 3315 / 3315 1463.6 / 1463.6 305 / 305 Output Total 1400 / 1400 600 / 600 575 / 575 Balance 1915 / 1915 863.6 / 863.6 -270 / -270 General: Alert, Oriented x3, Cooperative HEENT: Atraumatic, PERRLA, EOMI, Normocephalic Neck: Supple, No JVD, Negative Carotid Bruits Lungs: No wheeze, No rales, Diminished, Rhonchi Cardiovascular: Regular rate, Regular Rhythm, Normal S1, Normal S2, No murmurs Abdomen: Bowel Sounds Present, Soft, Non Tender, Non-Distended Extremities: No edema, Capillary Refill Less than 3 Seconds Skin: No rashes, No breakdown, Rash Present - Small edematous rash, improving on face Musculoskeletal: No Tenderness to Palpation of Joints or Extremities, Muscle Wasting Neurological: Cranial nerves II-XII grossly intact Psych/Mental Status: Normal Affect, Appropriate Microbiology Past 72 Hours 05/17/18 15:15 Urine Catheter - Mcdermott Urine Culture - Final Culture exhibits no growth. 05/17/18 12:45 Blood Culture (Wb) - Port Blood Culture - Preliminary No growth in 48 hours. 05/16/18 19:05 Blood Culture (Wb) - Left Hand Blood Culture - Preliminary No growth in 48 hours. 05/16/18 17:35 Blood Culture (Wb) - Port Blood Culture - Preliminary No growth in 48 hours. 05/16/18 18:00 Urine, Clean Catch Urine Culture - Final Culture exhibits no growth. Laboratory Results 05/20/18 11:25: POC Glucose 108 05/20/18 14:15: Sodium 139, Potassium 4.4, Chloride 112 H, Carbon Dioxide 17.0 L, Anion Gap 10, BUN 15, Creatinine 1.32 H, Estim Creat Clear Calc 42.80, Est GFR (MDRD) Af Amer 54 L, Est GFR (MDRD) Non-Af 45 L, BUN/Creatinine Ratio 11.4, Glucose 121 H, Calcium 7.2 L 05/20/18 17:42: POC Glucose 133 H 05/20/18 22:14: POC Glucose 141 H 05/21/18 05:35: Sodium 142, Potassium 3.2 L, Chloride 112 H, Carbon Dioxide 18.0 L, Anion Gap 12, BUN 15, Creatinine 1.14 H, Estim Creat Clear Calc 49.55, Est GFR (MDRD) Af Amer 64, Est GFR (MDRD) Non-Af 53 L, BUN/Creatinine Ratio 13.2, Glucose 100, Calcium 7.3 L 05/21/18 06:51: POC Glucose 98 Current Medications Acetaminophen (Tylenol) 650 mg RECTAL Q6H PRN PRN PRN Reason: Fever >101 Last Admin: 05/18/18 20:18 Dose: 650 mg Albuterol/Ipratropium (Duoneb) 3 ml INHALATION Q6H PRN PRN PRN Reason: Shortness of breath/Wheeze Aspirin (Aspirin, Baby) 81 mg PO DAILY@0800 REPLACED BY [facility] Last Admin: 05/20/18 09:31 Dose: 81 mg Atorvastatin Calcium (Lipitor) 80 mg PO QHS REPLACED BY [facility] Last Admin: 05/20/18 22:17 Dose: 80 mg Calamine/Phenol (Calmoseptine Ointment) 1 applic TOPICAL BID REPLACED BY [facility]; Protocol Last Admin: 05/20/18 22:18 Dose: Not Given Chlorhexidine Gluconate () 1 each TOPICAL DAILY REPLACED BY [facility] Last Admin: 05/20/18 09:32 Dose: 1 each Cyclobenzaprine HCl (Cyclobenzaprine Hcl) 5 mg PO TID PRN PRN Reason: ANXIETY Heparin Sodium (Beef Lung) (Heparin 500 Unit/5 Ml (100/Ml)) 500 unit IV UD PRN PRN Reason: HEPARIN FLUSH Heparin Sodium (Porcine) (Heparin Na) 5,000 unit SC Q8 REPLACED BY [facility] Last Admin: 05/21/18 05:43 Dose: 5,000 unit Hydrocortisone Sodium Succinate (Solu-Cortef) 100 mg IV Q8 REPLACED BY [facility] Last Admin: 05/21/18 05:43 Dose: 100 mg Thiamine HCl 100 mg/ Sodium (Chloride) 51 mls @ 200 mls/hr IV DAILY REPLACED BY [facility] Last Admin: 05/20/18 10:14 Dose: 200 mls/hr Vancomycin IV Pharmacy to Dose (1 ea/ Sodium Chloride) 500 mls @ 250 mls/hr IV X1 PRN; Protocol PRN Reason: Rx to Dose Meropenem 500 mg/ Sodium (Chloride) 60 mls @ 100 mls/hr IV Q8 REPLACED BY [facility] Last Admin: 05/21/18 05:43 Dose: 100 mls/hr Vancomycin HCl () 500 mg in 100 mls @ 100 mls/hr IV Q12H REPLACED BY [facility] Last Admin: 05/21/18 02:39 Dose: 100 mls/hr Famotidine 20 mg/ Sodium (Chloride) 10 mls @ 300 mls/hr IV Q24 REPLACED BY [facility] Last Admin: 05/20/18 09:32 Dose: 300 mls/hr Norepinephrine Bitartrate 8 mg (/ Dextrose) 258 mls @ 9.68 mls/hr IV .[id number] REPLACED BY [facility]; Protocol Last Admin: 05/20/18 20:44 Dose: Not Given Sodium Chloride () 250 mls @ 15 mls/hr IV .[id number] PRN PRN Reason: SALINE FLUSH Potassium Chloride 40 meq/ (Sodium Chloride) 120 mls @ 100 mls/hr IV BOLUS X1 ONE Stop: 05/21/18 09:03 Insulin Human Lispro (Humalog Kwikpen (Bkc)) 0 unit SC ACHS REPLACED BY [facility]; Protocol Last Admin: 05/21/18 07:39 Dose: Not Given Loperamide HCl (Imodium) 2 mg PO Q2H PRN PRN PRN Reason: DIARRHEA/LOOSE STOOLS Last Admin: 05/20/18 23:56 Dose: 2 mg Lorazepam (Ativan) 1 mg PO Q4H PRN PRN PRN Reason: ANXIETY Magnesium Hydroxide (Milk Of Magnesia) 30 ml PO DAILY PRN PRN Reason: Constipation Mirtazapine (Remeron) 7.5 mg PO QHS PRN PRN Reason: SLEEP Ondansetron HCl (Zofran) 8 mg PO Q8H PRN PRN PRN Reason: NAUSEA Ondansetron HCl (Zofran) 4 mg IV Q6H PRN PRN PRN Reason: NAUSEA/VOMITING Last Admin: 05/19/18 04:05 Dose: 4 mg Oxycodone HCl (Oxyir) 5 mg PO Q6H PRN PRN PRN Reason: PAIN Potassium Chloride (K-Dur) 40 meq PO DAILYCM LUCRECIA Sodium Chloride () 10 ml IV UD PRN PRN Reason: VAD FLUSH Last Admin: 05/21/18 05:44 Dose: 10 ml Sodium Chloride () 10 ml IV UD PRN PRN Reason: VAD FLUSH Last Admin: 05/18/18 13:36 Dose: 10 ml Medical Necessity - Tobacco Use Smoking Status: Current every day smoker Tobacco Use: Cigarettes Assessment/Plan All Active Problems (Last Reviewed 05/16/18 @ 20:50 by Sohan Waddell MD) Acute kidney injury (Acute) Hypokalemia (Acute) Abnormal EKG (Acute) Hyponatremia (Acute) Nausea vomiting and diarrhea (Acute) Pulmonary embolism (Acute) Periodontal disease (Acute) Nausea & vomiting (Acute) Headache (Acute) Encounter for adjustment or management of vascular access device (Acute) Small cell lung cancer (Acute) Regional lymph node metastasis present (Acute) Lung metastasis (Acute) There is a 52 female with history of COPD, right side limited small cell cancer on chemoradiation before and now on immunotherapy, follows Dr. Giraldo in [facility] was admitted yesterday night for 10 days history of nausea, vomiting, diarrhea, anorexia and poor oral intake, lethargic with altered mental status and severe electrolyte imbalance to stepdown. The patient was initially resuscitated with IV fluid normal saline, electrolyte repletion and bicarb drip for severe metabolic acidosis. Patient was later transferred to ICU. Discussed with the oncologist team and Dr. Mckeon. 1. Septic shock of unclear etiology: Patient is currently admitted in ICU. C. difficile and enteric bacteriology panel are negative. Blood culture drawn on 05/16 and then in ICU, 05/17 did not show growth for more than 48 hours. Levophed is discontinued. As patient has been afebrile for about 2 days with negative culture, Dr. Cano suggested discontinuation of antibiotics and watch temperature curve off antibiotics. IV vancomycin and meropenem discontinued. 2. Severe electrolyte imbalance with high anion gap metabolic acidosis with compensatory respiratory alkalosis, most probably secondary to diarrhea, or Fanconi syndrome/possible endocrinopathy secondary to immunotherapy: Hypokalemia, hypophosphatemia and hyponatremia: Potassium was 2.0 and still fluctuates. Phosphorus 4.7. Magnesium 2.8. K still low 3.2. On replacement. Started on K-Dur 40 M EQ twice daily with intermittent IV potassium replacement depending on K level. Serum cortisol level normal, 9.6. gastroenteritis, nausea, vomiting, diarrhea secondary to chemotherapy/immunotherapy. 3. Acute kidney injury most probably secondary to hypovolemia/prerenal etiology and ATN, probably ischemic or secondary to chemotherapy: Monitor creatinine and electrolytes as mentioned above. Roll Inspector consult reviewed. Creatinine remains stable. Urine electrolytes 6 sodium 69, potassium 28, chloride 93, creatinine 25.9. Creatinine is still elevated 1.39, BUN normal even after aggressive fluid resuscitation 4. Abnormal EKG: Patient had ST depression in inferolateral leads and slight ST elevation in aVR. Discussed with Dr. Blue and he thinks there is no coronary event as patient troponins are negative. It may be secondary to electrolyte imbalance: Echo on 05/16 shows EF 60% with normal LV size. No regional wall motion abnormality. Normal right and left atria. Normal right ventricle. No significant valvular pathology. 5. Right-sided small cell lung cancer with history of multiple chemoradiation, currently immunotherapy ipilimumab and nivolumab at [facility] under the care of Dr. Cabral. Discussed with the oncologist Radha FRIEDMAN. patient completed 4 cycles nivolumab/ipilimumab, last dose on 05/05/18 at [facility]. Severe protein calorie malnutrition: Tape Duplicator consult. 6. 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 Multiple comorbidities complicates the present care and expect difficult and delay recovery. Poor prognosis. DVT prophylaxis: On heparin 5000 subcutaneous 3 times daily. Discharge planning: Patient will need SNF placement as she is very weak with severe protein calorie malnutrition. Microbiology Past 72 Hours 05/17/18 15:15 Urine Catheter - Mcdermott Urine Culture - Final Culture exhibits no growth. 05/17/18 12:45 Blood Culture (Wb) - Port Blood Culture - Preliminary No growth in 48 hours. 05/16/18 19:05 Blood Culture (Wb) - Left Hand Blood Culture - Preliminary No growth in 48 hours. 05/16/18 17:35 Blood Culture (Wb) - Port Blood Culture - Preliminary No growth in 48 hours. Laboratory Results 05/20/18 14:15: Sodium 139, Potassium 4.4, Chloride 112 H, Carbon Dioxide 17.0 L, Anion Gap 10, BUN 15, Creatinine 1.32 H, Estim Creat Clear Calc 42.80, Est GFR (MDRD) Af Amer 54 L, Est GFR (MDRD) Non-Af 45 L, BUN/Creatinine Ratio 11.4, Glucose 121 H, Calcium 7.2 L 05/20/18 17:42: POC Glucose 133 H 05/20/18 22:14: POC Glucose 141 H 05/21/18 05:35: Sodium 142, Potassium 3.2 L, Chloride 112 H, Carbon Dioxide 18.0 L, Anion Gap 12, BUN 15, Creatinine 1.14 H, Estim Creat Clear Calc 49.55, Est GFR (MDRD) Af Amer 64, Est GFR (MDRD) Non-Af 53 L, BUN/Creatinine Ratio 13.2, Glucose 100, Calcium 7.3 L 05/21/18 06:51: POC Glucose 98 05/21/18 : MRSA (PCR) Pending Clinical Impression(s) from Imaging Studies Chest X-Ray 05/16/18 17:35 IMPRESSION: Stable x-ray examination of the chest since CT chest/thorax November 17, 2017, as described. Chest X-Ray 05/17/18 12:21 IMPRESSION: 1. Stable chronic right perihilar stranding. 2. Subcentimeter faint nodular density projecting in left base is likely an artifact. 3. Right chest wall MediPort again noted. Active Medications Acetaminophen (Tylenol) 650 mg RECTAL Q6H PRN PRN PRN Reason: Fever >101 Last Admin: 05/18/18 20:18 Dose: 650 mg Albuterol/Ipratropium (Duoneb) 3 ml INHALATION Q6H PRN PRN PRN Reason: Shortness of breath/Wheeze Aspirin (Aspirin, Baby) 81 mg PO DAILY@0800 REPLACED BY [facility] Last Admin: 05/21/18 08:03 Dose: 81 mg Atorvastatin Calcium (Lipitor) 80 mg PO QHS REPLACED BY [facility] Last Admin: 05/20/18 22:17 Dose: 80 mg Calamine/Phenol (Calmoseptine Ointment) 1 applic TOPICAL BID REPLACED BY [facility]; Protocol Last Admin: 05/21/18 09:22 Dose: 1 applicatio Cyclobenzaprine HCl (Cyclobenzaprine Hcl) 5 mg PO TID PRN PRN Reason: ANXIETY Heparin Sodium (Beef Lung) (Heparin 500 Unit/5 Ml (100/Ml)) 500 unit IV UD PRN PRN Reason: HEPARIN FLUSH Heparin Sodium (Porcine) (Heparin Na) 5,000 unit SC Q8 REPLACED BY [facility] Last Admin: 05/21/18 14:01 Dose: 5,000 unit Hydrocortisone Sodium Succinate (Solu-Cortef) 100 mg IV Q8 REPLACED BY [facility] Last Admin: 05/21/18 14:01 Dose: 100 mg Thiamine HCl 100 mg/ Sodium (Chloride) 51 mls @ 200 mls/hr IV DAILY REPLACED BY [facility] Last Admin: 05/21/18 11:21 Dose: Not Given Famotidine 20 mg/ Sodium (Chloride) 10 mls @ 300 mls/hr IV Q24 REPLACED BY [facility] Last Admin: 05/21/18 10:49 Dose: 300 mls/hr Sodium Chloride () 250 mls @ 15 mls/hr IV .[id number] PRN PRN Reason: SALINE FLUSH Insulin Human Lispro (Humalog Kwikpen (Bkc)) 0 unit SC ACHS REPLACED BY [facility]; Protocol Last Admin: 05/21/18 11:22 Dose: Not Given Loperamide HCl (Imodium) 2 mg PO Q2H PRN PRN PRN Reason: DIARRHEA/LOOSE STOOLS Last Admin: 05/20/18 23:56 Dose: 2 mg Lorazepam (Ativan) 1 mg PO Q4H PRN PRN PRN Reason: ANXIETY Magnesium Hydroxide (Milk Of Magnesia) 30 ml PO DAILY PRN PRN Reason: Constipation Mirtazapine (Remeron) 7.5 mg PO QHS PRN PRN Reason: SLEEP Ondansetron HCl (Zofran) 8 mg PO Q8H PRN PRN PRN Reason: NAUSEA Ondansetron HCl (Zofran) 4 mg IV Q6H PRN PRN PRN Reason: NAUSEA/VOMITING Last Admin: 05/19/18 04:05 Dose: 4 mg Oxycodone HCl (Oxyir) 5 mg PO Q6H PRN PRN PRN Reason: PAIN Potassium Chloride (K-Dur) 40 meq PO DAILYCM LUCRECIA Last Admin: 05/21/18 08:03 Dose: 40 meq Sodium Chloride () 10 ml IV UD PRN PRN Reason: VAD FLUSH Last Admin: 05/21/18 10:49 Dose: 10 ml Sodium Chloride () 10 ml IV UD PRN PRN Reason: VAD FLUSH Last Admin: 05/18/18 13:36 Dose: 10 ml Code Visit Inpatient E&M: 93906 Subs Hosp L3
[2018-05-21] MEDS: Aspirin 81 MG TAB.CHEW PO (08:03)
--- NOTE | 2018-05-21 08:34 | PCM.PROGNOTE ---
Patient Problems: Active and Suspected Problems (Last Reviewed 05/16/18 @ 20:50 by Sohan Waddell MD) Acute kidney injury (Acute) Hypokalemia (Acute) Abnormal EKG (Acute) Hyponatremia (Acute) Nausea vomiting and diarrhea (Acute) Small cell lung cancer (Acute) Subjective: The patient was seen and examined at the bedside this morning. Events from the last 24 hours have been reviewed. The patient is currently afebrile, hemodynamically stable and maintaining appropriate oxygen saturations on room air. The patient has remained clinically stable following her transfer out of the intensive care unit yesterday. Objective: The patient's most recent lab work, culture data and imaging studies have all been personally reviewed. Blood and urine cultures have shown no growth to date. C. difficile was negative. Ova and parasites are pending. Surface echocardiogram revealed normal LV size and thickness with an ejection fraction of 60%. Pulmonary artery systolic pressure was unable to be estimated. - Physical Exam General: Alert, No apparent distress HEENT: Atraumatic, PERRLA, Normocephalic Oral: Dry Mucosa Neck: Supple, No Nodes, Trachea Midline Lungs: No rhonchi, No wheeze, No rales, Diminished Cardiovascular: Regular rate, Regular Rhythm, Normal S1, Normal S2, No murmurs Abdomen: Bowel Sounds Present, Soft, Non Tender Extremities: No cyanosis, No edema, Clubbing Skin: - - No significant change from previous. Musculoskeletal: No Tenderness to Palpation of Joints or Extremities Lymphatic: No Cervical, Supraclavicular, or Inguinal Adenopathy Neurological: Neuro grossly intact Psych/Mental Status: Flat Affect Vital Signs Temp Pulse Resp BP Pulse Ox 97.8 F 110 H 18 106/67 98 05/21/18 05:37 05/21/18 07:07 05/21/18 05:37 05/21/18 05:37 05/21/18 07:15 Oxygen Flow Rate (L/min) 3 Oxygen Delivery Method Room Air Weight: 121 lb 0.54 oz Body Mass Index (BMI) 19.5 Intake and Output for Last 24 Hours 05/19/18 05/20/18 05/21/18 23:59 23:59 23:59 Intake Total 3315 / 3315 1463.6 / 1463.6 305 / 305 Output Total 1400 / 1400 600 / 600 575 / 575 Balance 1915 / 191 863.6 / 863.6 -270 / -270 Microbiology Past 72 Hours 05/17/18 15:15 Urine Culture - Final Urine Catheter - Mcdermott Culture exhibits no growth. 05/17/18 12:45 Blood Culture - Preliminary Blood Culture (Wb) - Port No growth in 48 hours. 05/16/18 19:05 Blood Culture - Preliminary Blood Culture (Wb) - Left Hand No growth in 48 hours. 05/16/18 17:35 Blood Culture - Preliminary Blood Culture (Wb) - Port No growth in 48 hours. 05/16/18 18:00 Urine Culture - Final Urine, Clean Catch Culture exhibits no growth. Laboratory Tests Past 24 Hrs 05/20/18 05/21/18 14:15 05:35 Sodium 139 142 Potassium 4.4 3.2 L Chloride 112 H 112 H Carbon Dioxide 17.0 L 18.0 L Anion Gap 10 12 BUN 15 15 Creatinine 1.32 H 1.14 H Estim Creat Clear Calc 42.80 49.55 Est GFR (MDRD) Af Amer 54 L 64 Est GFR (MDRD) Non-Af 45 L 53 L BUN/Creatinine Ratio 11.4 13.2 Glucose 121 H 100 Calcium 7.2 L 7.3 L POC Glucose 05/21/18 05/20/18 05/20/18 06:51 22:14 17:42 POC Glucose 98 141 H 133 H 05/20/18 11:25 POC Glucose 108 Clinical Impression(s) from Imaging Studies Chest X-Ray 05/16/18 17:35 IMPRESSION: Stable x-ray examination of the chest since CT chest/thorax November 17, 2017, as described. Electronically Signed: Ken Real MD at 17:56 EDT , Service support , Chest X-Ray 05/17/18 12:21 IMPRESSION: 1. Stable chronic right perihilar stranding. 2. Subcentimeter faint nodular density projecting in left base is likely an artifact. 3. Right chest wall MediPort again noted. Electronically Signed: Ken Real MD at 13:33 EDT , Service support , Medical Necessity - Tobacco Use Smoking Status: Current every day smoker Tobacco Use: Cigarettes Assessment/Plan All Active Problems (Last Reviewed 05/16/18 @ 20:50 by Sohan Waddell MD) Acute kidney injury (Acute) Hypokalemia (Acute) Abnormal EKG (Acute) Hyponatremia (Acute) Nausea vomiting and diarrhea (Acute) Pulmonary embolism (Acute) Periodontal disease (Acute) Nausea & vomiting (Acute) Headache (Acute) Encounter for adjustment or management of vascular access device (Acute) Small cell lung cancer (Acute) Regional lymph node metastasis present (Acute) Lung metastasis (Acute) RECOMMENDATIONS: 1. Begin to wean stress dose steroids. 2. Continue bronchodilators 3. Antibiotics can likely be discontinued, as no infectious process has been identified. 4. The patient should follow-up with Dr. Mckeon as scheduled. IMPRESSIONS: 1. Septic shock of unclear etiology Patient is currently immunosuppressed secondary to chemotherapy. Patient did develop fever and hypotension, which may be secondary to gastrointestinal infection and subsequent GI losses. Her hemodynamics have improved in the setting of volume expansion and stress dose steroid therapy. At this time, her antibiotics can likely be discontinued, as no infectious process has been identified. She has been successfully weaned from vasopressor support. Stress dose steroids can be weaned at this time. 2. Acute kidney injury secondary to hypovolemia secondary to gastroenteritis Improving. Clinical suspicion for prerenal etiology secondary to volume loss from gastroenteritis. No indication for renal replacement therapy at this time. Continue with supportive care. 3. Hypokalemia Patient continues to have very suppressed potassium levels. Additional potassium repletion as indicated. 4. Small cell lung cancer of the right lung Patient currently receiving immunotherapy at [facility]. Oncology is currently following. 5. Severe protein calorie malnutrition/debility/recurrent hypoglycemia/bipolar/minimal tobacco abuse Complicates care, management, recovery and prognosis. This note was generated with [employer] dictation software. It may contain incorrect words, spelling, and punctuation that were not noted in checking the note before signing. DISPOSITION: Given the lack of ongoing ICU/pulmonary needs, will sign off. Please call with any additional questions. Code Visit Inpatient E&M: 95559 Subs Hosp L2
--- NOTE | 2018-05-21 08:37 | PN_ITS ---
Patient Problems: Active and Suspected Problems (Last Reviewed 05/16/18 @ 20:50 by Sohan Waddell MD) Acute kidney injury (Acute) Hypokalemia (Acute) Abnormal EKG (Acute) Hyponatremia (Acute) Nausea vomiting and diarrhea (Acute) Small cell lung cancer (Acute) Subjective: The patient was seen and examined at the bedside this morning. Events from the last 24 hours have been reviewed. The patient is currently afebrile, hemodynamically stable and maintaining appropriate oxygen saturations on room air. The patient has remained clinically stable following her transfer out of the intensive care unit yesterday. Objective: The patient's most recent lab work, culture data and imaging studies have all been personally reviewed. Blood and urine cultures have shown no growth to date. C. difficile was negative. Ova and parasites are pending. Surface echocardiogram revealed normal LV size and thickness with an ejection fraction of 60%. Pulmonary artery systolic pressure was unable to be estimated. - Physical Exam General: Alert, No apparent distress HEENT: Atraumatic, PERRLA, Normocephalic Oral: Dry Mucosa Neck: Supple, No Nodes, Trachea Midline Lungs: No rhonchi, No wheeze, No rales, Diminished Cardiovascular: Regular rate, Regular Rhythm, Normal S1, Normal S2, No murmurs Abdomen: Bowel Sounds Present, Soft, Non Tender Extremities: No cyanosis, No edema, Clubbing Skin: - - No significant change from previous. Musculoskeletal: No Tenderness to Palpation of Joints or Extremities Lymphatic: No Cervical, Supraclavicular, or Inguinal Adenopathy Neurological: Neuro grossly intact Psych/Mental Status: Flat Affect Vital Signs Temp Pulse Resp BP Pulse Ox 97.8 F 110 H 18 106/67 98 05/21/18 05:37 05/21/18 07:07 05/21/18 05:37 05/21/18 05:37 05/21/18 07:15 Oxygen Flow Rate (L/min) 3 Oxygen Delivery Method Room Air Weight: 121 lb 0.54 oz Body Mass Index (BMI) 19.5 Intake and Output for Last 24 Hours 05/19/18 05/20/18 05/21/18 23:59 23:59 23:59 Intake Total 3315 / 3315 1463.6 / 1463.6 305 / 305 Output Total 1400 / 1400 600 / 600 575 / 575 Balance 1915 / 191 863.6 / 863.6 -270 / -270 Microbiology Past 72 Hours 05/17/18 15:15 Urine Culture - Final Urine Catheter - Mcdermott Culture exhibits no growth. 05/17/18 12:45 Blood Culture - Preliminary Blood Culture (Wb) - Port No growth in 48 hours. 05/16/18 19:05 Blood Culture - Preliminary Blood Culture (Wb) - Left Hand No growth in 48 hours. 05/16/18 17:35 Blood Culture - Preliminary Blood Culture (Wb) - Port No growth in 48 hours. 05/16/18 18:00 Urine Culture - Final Urine, Clean Catch Culture exhibits no growth. Laboratory Tests Past 24 Hrs 05/20/18 05/21/18 14:15 05:35 Sodium 139 142 Potassium 4.4 3.2 L Chloride 112 H 112 H Carbon Dioxide 17.0 L 18.0 L Anion Gap 10 12 BUN 15 15 Creatinine 1.32 H 1.14 H Estim Creat Clear Calc 42.80 49.55 Est GFR (MDRD) Af Amer 54 L 64 Est GFR (MDRD) Non-Af 45 L 53 L BUN/Creatinine Ratio 11.4 13.2 Glucose 121 H 100 Calcium 7.2 L 7.3 L POC Glucose 05/21/18 05/20/18 05/20/18 06:51 22:14 17:42 POC Glucose 98 141 H 133 H 05/20/18 11:25 POC Glucose 108 Clinical Impression(s) from Imaging Studies Chest X-Ray 05/16/18 17:35 IMPRESSION: Stable x-ray examination of the chest since CT chest/thorax November 17, 2017, as described. Electronically Signed: Ken Real MD at 17:56 EDT , Service support , Chest X-Ray 05/17/18 12:21 IMPRESSION: 1. Stable chronic right perihilar stranding. 2. Subcentimeter faint nodular density projecting in left base is likely an artifact. 3. Right chest wall MediPort again noted. Electronically Signed: Ken Real MD at 13:33 EDT , Service support , Medical Necessity - Tobacco Use Smoking Status: Current every day smoker Tobacco Use: Cigarettes Assessment/Plan All Active Problems (Last Reviewed 05/16/18 @ 20:50 by Sohan Waddell MD) Acute kidney injury (Acute) Hypokalemia (Acute) Abnormal EKG (Acute) Hyponatremia (Acute) Nausea vomiting and diarrhea (Acute) Pulmonary embolism (Acute) Periodontal disease (Acute) Nausea & vomiting (Acute) Headache (Acute) Encounter for adjustment or management of vascular access device (Acute) Small cell lung cancer (Acute) Regional lymph node metastasis present (Acute) Lung metastasis (Acute) RECOMMENDATIONS: 1. Begin to wean stress dose steroids. 2. Continue bronchodilators 3. Antibiotics can likely be discontinued, as no infectious process has been identified. 4. The patient should follow-up with Dr. Mckeon as scheduled. IMPRESSIONS: 1. Septic shock of unclear etiology Patient is currently immunosuppressed secondary to chemotherapy. Patient did develop fever and hypotension, which may be secondary to gastrointestinal infection and subsequent GI losses. Her hemodynamics have improved in the setting of volume expansion and stress dose steroid therapy. At this time, her antibiotics can likely be discontinued, as no infectious process has been i dentified. She has been successfully weaned from vasopressor support. Stress dose steroids can be weaned at this time. 2. Acute kidney injury secondary to hypovolemia secondary to gastroenteritis Improving. Clinical suspicion for prerenal etiology secondary to volume loss from gastroenteritis. No indication for renal replacement therapy at this time. Continue with supportive care. 3. Hypokalemia Patient continues to have very suppressed potassium levels. Additional potassium repletion as indicated. 4. 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 Oncology is currently following. 5. Severe protein calorie malnutrition/debility/recurrent hypoglycemia/bipolar/minimal tobacco abuse Complicates care, management, recovery and prognosis. This note was generated with App[employer] dictation software. It may contain incorrect words, spelling, and punctuation that were not noted in checking the note before signing. DISPOSITION: Given the lack of ongoing ICU/pulmonary needs, will sign off. Please call with any additional questions. Code Visit Inpatient E&M: 00031 Subs Hosp L2
[2018-05-21] MEDS: Menthol/Lanolin/Calamine/Znox 113 GM Tube 1 APPLIC TOPICAL ×2 (09:22→21:34)
[2018-05-21] MEDS: Famotidine 20mg IV Push Syringe Q24 300 MG IV (10:49)
[2018-05-21 15:29] LABS: M R Staph aureus DNA By PCR Negative (Negative); Probe Check PASS; Specimen Processing Control PASS
[2018-05-21 16:30] LABS: Bedside Glucose 117 mg/dL (70-110)
[2018-05-21] MEDS: Atorvastatin Calcium 80 MG Tablet PO (21:33)
[2018-05-21 21:55] LABS: Bedside Glucose 100 mg/dL (70-110)
[2018-05-22] VITALS (7 sets, daily range): BP systolic 95–108; BP diastolic 60–73; PULSE 91–102; RESP 16–18; TEMP 36.6–36.8; O2SAT 99
[2018-05-22] MEDS: 0.9% NaCl VAD Flush 10 ML IV ×5 (04:48→16:06)
[2018-05-22] MEDS: Hydrocortisone Sod Succinate 100 MG/2 ML Vial IV ×2 (05:08→13:39)
[2018-05-22 05:11] LABS: Absolute Lymphocyte Count 0.77 X10^3/ul (0.83-4.51); Absolute Neutrophil Count 2.5 X10^3/uL (2.0-7.7); Basophil# 0.01 X10^3/uL; Basophil% 0.3 % (0-1); Hematocrit 24.3 % (37-47); Hemoglobin 8.6 g/dl (12.0-15.0); Lymphocyte # 0.77 X10^3/ul (4.0); Lymphocyte % 21.9 % (19-41); Mean Corp Hgb Conc 35.4 g/gl (32-36); Mean Corpuscular Hgb 28.8 pg (27.0-32.0); Mean Corpuscular Volume 81.3 fL (81-99); Mean Platelet Vol. 9.3 fl (6.2-12.0); Monocyte# 0.25 X10^3/uL; Monocyte% 7.1 % (0-10); Neutrophil # 2.46 X10^3/uL (2.7-7.7); Neutrophil % 69.8 % (47-70); Platelet Count 173 K/mm3 (150-450); RBC Distribution Width CV 18.2 % (11.6-14.6); Red Blood Count 2.99 M/mm3 (4.2-5.4); White Blood Count 3.5 K/mm3 (4.4-11.0)
[2018-05-22 05:12] LABS: POSITIVE COUNT NO; POSITIVE DIFFERENTIAL NO; POSITIVE MORPHOLOGY NO
[2018-05-22 05:14] LABS: Anion Gap 11 (5-15); BUN 14 mg/dL (7-18); BUN/Creat Ratio 13.3 RATIO (10-20); Calcium,Total 7.8 mg/dL (8.5-10.1); Chloride 116 mmol/L (98-107); Creatinine, Serum 1.05 mg/dL (0.55-1.02); EST Glomerular Filtration Rate 58 mL/min (>60); Est Glom Filt Rate - Afr Amer 70 mL/min (>60); Glucose 114 mg/dL (74-106); Potassium 3.3 mmol/L (3.5-5.1); Sodium Level 144 mmol/L (136-145)
[2018-05-22 06:56] LABS: Bedside Glucose 127 mg/dL (70-110)
[2018-05-22] MEDS: Aspirin 81 MG TAB.CHEW PO (09:05)
[2018-05-22] MEDS: Menthol/Lanolin/Calamine/Znox 113 GM Tube 1 APPLIC TOPICAL (09:05)
[2018-05-22] MEDS: Famotidine 20 MG Tablet PO (09:06)
--- NOTE | 2018-05-22 09:27 | DCINST_ITS ---
- Discharge Diagnoses Current Active Problems: Current Active and Chronic Problems (Last Reviewed 05/16/18 @ 20:50 by Sohan Waddell MD) Acute kidney injury (Acute) Hypokalemia (Acute) Abnormal EKG (Acute) Hyponatremia (Acute) Nausea vomiting and diarrhea (Acute) Small cell lung cancer (Acute) You will use the following diet at home:: Regular Your food should be the consistency of: Mechanical soft (ground) Discharge Activity: May not drive while taking narcotic pain medications. Allergies/Adverse Reactions: Allergies dextromethorphan HBr [From Comtrex Cold-Cough] Allergy (Verified 05/16/18 17:58) Anaphylaxis diphenhydramine [From Sudafed PE Severe Cold] Allergy (Verified 05/16/18 17:58) / phenylephrine [From Sudafed PE Severe Cold] Allergy (Verified 05/16/18 17:58) / phenylephrine HCl [From Comtrex Cold-Cough] Allergy (Verified 05/16/18 17:58) Anaphylaxis Medications to take at Discharge Mirtazapine [Remeron] 7.5 mg PO QHS PRN 05/31/17 Cyclobenzaprine HCl 5 mg PO TID PRN 05/16/18 Diazepam 10 mg PO BID PRN 05/16/18 Ondansetron [Zofran] 8 mg PO Q8H PRN PRN 05/16/18 Oxycodone [Oxyir] 5 mg PO Q6H PRN PRN 05/16/18 Potassium Chloride [K-Dur] 40 meq PO DAILY #30 tablet 05/22/18 The following prescriptions were given: Potassium Chloride [K-Dur] 40 meq PO DAILY #30 tablet Primary Care Physician: Fausto Iverson DO [Primary Care Provider] - Please follow up with your Primary Care Physician in: in 5-7 days Test Results: Test results from this visit will be discussed in further detail at your follow- up appointment, if applicable. Proposed Discharge Date: 05/22/18
--- NOTE | 2018-05-22 09:27 | PCM.DC.SUM ---
Discharge Date and Diagnosis - Problem List Patient Problems: Active and Suspected Problems (Last Reviewed 05/16/18 @ 20:50 by Sohan Waddell MD) Acute kidney injury (Acute) Hypokalemia (Acute) Abnormal EKG (Acute) Hyponatremia (Acute) Nausea vomiting and diarrhea (Acute) Small cell lung cancer (Acute) Date of Admission: 05/16/18 Date of Discharge: 05/22/18 - Primary Discharge Diagnosis Active and Suspected Problems (Last Reviewed 05/16/18 @ 20:50 by Sohan Waddell MD) Acute kidney injury (Acute) Hypokalemia (Acute) Abnormal EKG (Acute) Hyponatremia (Acute) Nausea vomiting and diarrhea (Acute) Small cell lung cancer (Acute) - Secondary Discharge Diagnosis Chronic Problems (Last Reviewed 05/16/18 @ 20:50 by Sohan Waddell MD) Bipolar affect, depressed (Chronic) Tobacco abuse (Chronic) Muscle spasm (Chronic) custodial current use of anticoagulant (Chronic) Acid reflux disease (Chronic) Rotator cuff syndrome (Chronic) Adrenal nodule (Chronic) COPD (chronic obstructive pulmonary disease) (Chronic) Poor compliance with medication (Chronic) Left atrial thrombus (Chronic) Tobacco dependence (Chronic) PTSD (post-traumatic stress disorder) (Chronic) 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 LA Spasm of back muscles (Chronic) Manic depression (Chronic) Dyspnea (Chronic) 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 Patient was found to have multiple electrolyte abnormalities including hypokalemia hypophosphatemia as well as hyponatremia 1. Septic shock ruled out 2. Hypotension secondary to hypovolemia from gastroenteritis patient was managed with IV fluid resuscitation 3. Acute gastroenteritis attributed to patient's immunotherapy treated symptomatically 4. Acute kidney injury secondary to hypovolemia from above did resolve prior to discharge 5. Hypokalemia repleted per protocol 6. Hypophosphatemia corrected per protocol 7. Hyponatremia resuscitated with IV fluid resolved at time of discharge 8. Abnormal EKG attributed to patient's electrolyte imbalance 9. COPD; nebs prn 10. Right side limited small cell cancer on current receives treatment at the [facility] 11. 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 GERD, 13. History of of pulmonary embolism 14. Bipolar disorder 15. Severe protein calorie malnutrition Discharge Diet: No Restrictions Discharge Activity: May not drive while taking narcotic pain medications. Home Medications: Medications to take at Discharge Mirtazapine [Remeron] 7.5 mg PO QHS PRN 05/31/17 Cyclobenzaprine HCl 5 mg PO TID PRN 05/16/18 Diazepam 10 mg PO BID PRN 05/16/18 Ondansetron [Zofran] 8 mg PO Q8H PRN PRN 05/16/18 Oxycodone [Oxyir] 5 mg PO Q6H PRN PRN 05/16/18 Potassium Chloride [K-Dur] 40 meq PO DAILY #30 tablet 05/22/18 Following Prescrptions Were Given to Patient: Potassium Chloride [K-Dur] 40 meq PO DAILY #30 tablet Primary Care Physician: Fausto Iverson DO [Primary Care Provider] - Please follow up with your Primary Care Physician in: in 5-7 days Disposition: Home with Home Health Minutes spent on discharge:: 35 Medical Necessity - Tobacco Use Smoking Status: Current every day smoker Tobacco Use: Cigarettes Meaningful Use Info Meaningful Use Diagnoses (Choose all that apply): None applicable Code Visit Inpatient E&M: 60965 Disch Hosp - Physical Exam General: Alert HEENT: Atraumatic Neck: Supple Lungs: Diminished Neurological: Neuro grossly intact Psych/Mental Status: Appropriate Vital Signs Temp Pulse Resp BP Pulse Ox 98.3 F 99 16 108/73 99 05/22/18 13:52 05/22/18 13:52 05/22/18 13:52 05/22/18 13:52 05/22/18 13:52 Oxygen Flow Rate (L/min) 3 Oxygen Delivery Method Room Air Weight: 58.1 kg Body Mass Index (BMI) 19.5 Intake and Output for Last 24 Hours 05/20/18 05/21/18 05/22/18 23:59 23:59 23:59 Intake Total 1463.6 / 1463.6 1770 / 1770 999 / 999 Output Total 600 / 600 1275 / 1275 Balance 863.6 / 863.6 495 / 495 999 / 999 Microbiology Past 72 Hours 05/17/18 12:45 Blood Culture - Final Blood Culture (Wb) - Port No growth in 5 days. 05/16/18 19:05 Blood Culture - Final Blood Culture (Wb) - Left Hand No growth in 5 days. 05/16/18 17:35 Blood Culture - Final Blood Culture (Wb) - Port No growth in 5 days. 05/17/18 15:15 Urine Culture - Final Urine Catheter - Mcdermott Culture exhibits no growth. Laboratory Tests Past 24 Hrs 05/21/18 05/22/18 05/22/18 Unknown 04:45 04:45 WBC 3.5 L RBC 2.99 L Hgb 8.6 L Hct 24.3 L MCV 81.3 MCH 28.8 MCHC 35.4 RDW 18.2 H RDW Differential 52.0 H Plt Count 173 MPV 9.3 Immature Gran % (Auto) 0.900 Neut % (Auto) 69.8 Lymph % (Auto) 21.9 [place] % (Auto) 7.1 Eos % (Auto) 0.0 Baso % (Auto) 0.3 Absolute Neuts (auto) 2.5 Absolute Lymphs (auto) 0.77 L Total Counted Not Reportable Sodium 144 Potassium 3.3 L Chloride 116 H Carbon Dioxide 17.0 L Anion Gap 11 BUN 14 Creatinine 1.05 H Estim Creat Clear Calc 53.70 Est GFR (MDRD) Af Amer 70 Est GFR (MDRD) Non-Af 58 L BUN/Creatinine Ratio 13.3 Glucose 114 H Calcium 7.8 L MRSA (PCR) Negative POC Glucose 05/22/18 05/22/18 05/21/18 12:16 06:49 21:36 POC Glucose 138 H 127 H 100 05/21/18 16:17 POC Glucose 117 H
--- NOTE | 2018-05-22 09:52 | CASEMGMT ---
Patient is ready for discharge today. Physician spoke with her and she wants to go home with home health and a walker. SW spoke with patient and she has no preference for agency for home health or DME. SW called [facility] and they do not take [facility]. SW called [facility] and made referral for detention, PT, and OT. Faxed referral. [place] [facility] and [place] prescription for wheeled walker. SW spoke with patient and let her know [facility] is the agency that will be seeing her at home. [facility] told her they will be calling her to set up a time to visit. [facility] told her that [facility] will deliver her walker here before she leaves today. She thanked [facility]. Plan: d/c home with [facility] detention, PT, and OT. She also received a wheeled walker from [facility]. Josy RODRIGUEZ MSW
--- NOTE | 2018-05-22 10:24 | PCM.PN.REN ---
Patient Problems: Active and Suspected Problems (Last Reviewed 05/16/18 @ 20:50 by Sohan Waddell MD) Acute kidney injury (Acute) Hypokalemia (Acute) Abnormal EKG (Acute) Hyponatremia (Acute) Nausea vomiting and diarrhea (Acute) Small cell lung cancer (Acute) Subjective: no new complaints - Physical Exam General: Alert, Oriented x3, Cooperative HEENT: Atraumatic, PERRLA, EOMI, Normocephalic Neck: Supple, No JVD, Negative Carotid Bruits Lungs: Clear to auscultation, Normal air movement Cardiovascular: Regular rate, No murmurs Abdomen: Bowel Sounds Present, Soft, Non Tender Extremities: No edema, Capillary Refill Less than 3 Seconds Skin: No rashes, No breakdown Musculoskeletal: No Tenderness to Palpation of Joints or Extremities Neurological: Cranial nerves II-XII grossly intact Psych/Mental Status: Normal Affect, Appropriate Vital Signs Temp Pulse Resp BP Pulse Ox 98.0 F 95 16 95/64 99 05/22/18 08:06 05/22/18 08:06 05/22/18 08:06 05/22/18 08:06 05/22/18 08:06 Oxygen Flow Rate (L/min) 3 Oxygen Delivery Method Room Air Weight: 58.1 kg Body Mass Index (BMI) 19.5 Intake and Output for Last 24 Hours 05/20/18 05/21/18 05/22/18 23:59 23:59 23:59 Intake Total 1463.6 / 1463.6 1770 / 1770 550 / 550 Output Total 600 / 600 1275 / 1275 Balance 863.6 / 863.6 495 / 495 550 / 550 Microbiology Past 72 Hours 05/17/18 12:45 Blood Culture - Final Blood Culture (Wb) - Port No growth in 5 days. 05/16/18 19:05 Blood Culture - Final Blood Culture (Wb) - Left Hand No growth in 5 days. 05/16/18 17:35 Blood Culture - Final Blood Culture (Wb) - Port No growth in 5 days. 05/17/18 15:15 Urine Culture - Final Urine Catheter - Mcdermott Culture exhibits no growth. Laboratory Tests Past 24 Hrs 05/21/18 05/22/18 05/22/18 Unknown 04:45 04:45 WBC 3.5 L RBC 2.99 L Hgb 8.6 L Hct 24.3 L MCV 81.3 MCH 28.8 MCHC 35.4 RDW 18.2 H RDW Differential 52.0 H Plt Count 173 MPV 9.3 Immature Gran % (Auto) 0.900 Neut % (Auto) 69.8 Lymph % (Auto) 21.9 [place] % (Auto) 7.1 Eos % (Auto) 0.0 Baso % (Auto) 0.3 Absolute Neuts (auto) 2.5 Absolute Lymphs (auto) 0.77 L Total Counted Not Reportable Sodium 144 Potassium 3.3 L Chloride 116 H Carbon Dioxide 17.0 L Anion Gap 11 BUN 14 Creatinine 1.05 H Estim Creat Clear Calc 53.70 Est GFR (MDRD) Af Amer 70 Est GFR (MDRD) Non-Af 58 L BUN/Creatinine Ratio 13.3 Glucose 114 H Calcium 7.8 L MRSA (PCR) Negative POC Glucose 05/22/18 05/21/18 05/21/18 06:49 21:36 16:17 POC Glucose 127 H 100 117 H Medical Necessity - Tobacco Use Smoking Status: Current every day smoker Tobacco Use: Cigarettes Assessment/Plan All Active Problems (Last Reviewed 05/16/18 @ 20:50 by Sohan Waddell MD) Acute kidney injury (Acute) Hypokalemia (Acute) Abnormal EKG (Acute) Hyponatremia (Acute) Nausea vomiting and diarrhea (Acute) Pulmonary embolism (Acute) Periodontal disease (Acute) Nausea & vomiting (Acute) Headache (Acute) Encounter for adjustment or management of vascular access device (Acute) Small cell lung cancer (Acute) Regional lymph node metastasis present (Acute) Lung metastasis (Acute) MEAGAN. likely related to volume depletion. 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 Opdivo is not known to cause fanconis syndrome. bicarbonate better phos normal now Mg repleted Hyponatremia. likely hypovolemic. better d/w Dr jhaveri discharge today. will follow up with oncology at [facility]
--- NOTE | 2018-05-22 10:45 | PHA.DC.MC ---
Pharmacy Service has performed discharge medication reconciliation and counseling for this patient. The patient's discharge medication list was reviewed for discrepancies and discrepancies were resolved. The patient was counseled on the following discharge medications and changes in medications for homegoing were reviewed. The Reason for Use, instructions for use, and potential side effects were reviewed for all new medications. The patient's questions regarding all of their medications were answered. The patient was able to verbally demonstrate an understanding of their discharge medications.
[2018-05-22 12:25] LABS: Bedside Glucose 138 mg/dL (70-110)
[2018-05-22] MEDS: Loperamide 2 MG Capsule PO (13:38)
--- NOTE | 2018-05-22 14:42 | CASEMGMT ---
Received call from [facility] and they are not able to take patient. Apparently her insurance is not approving home health through their agency. SW called [facility] and they do not go to [place]. SW called [facility] and made a referral as well as faxed over information. SW wrote down name and number of [facility] on patient's d/c instructions. Josy RODRIGUEZ MSW
--- NOTE | 2018-05-23 13:43 | CASEMGMT ---
JENNIFER LOZANO DC phone call DC DATE: 05/23/18 DC Dispostion: Home with Home Health MARLENE 13/STRATA 4 Intro role of CM via home phone. Pt states she does not have questions re: dc instructions, f/u or prescriptions. States Home Health did notify her and will be seeing pt tomorrow. RN MARTA thanked her for utilizing [facility]. No suggestions given for care improvements per pt. Yamil TAM RN AC
== END 2018-05-22 16:34 | disposition home health service (06) | DRG 469 ==
LOC: ED 19:46 → PCU 20:03 → ICU 05-17 11:51 → PCU 05-20 20:39 → ICU 05-22 15:35
PROVIDERS: Internal Medicine; Internal Medicine Critical Care Medicine; Admitting Provider Hospitalist; Emergency Provider Emergency Medicine; Family Provider Family Medicine; PCP Family Medicine; Referring Provider Internal Medicine Cardiovascular Disease; Visit Provider Internal Medicine
DX: N17.9 Acute kidney failure, unspecified (principal); J44.9 Chronic obstructive pulmonary disease, unspecified; K52.1 Toxic gastroenteritis and colitis; E87.1 Hypo-osmolality and hyponatremia; E86.1 Hypovolemia; C34.91 Malignant neoplasm of unspecified part of right bronchus or lung; R64 Cachexia; E87.6 Hypokalemia; E83.39 Other disorders of phosphorus metabolism; T45.1X5A Adverse effect of antineoplastic and immunosuppressive drugs, initial encounter; R94.31 Abnormal electrocardiogram [ECG] [EKG]; K21.9 Gastro-esophageal reflux disease without esophagitis; Z86.711 Personal history of pulmonary embolism; Z68.1 Body mass index [BMI] 19.9 or less, adult; Z86.718 Personal history of other venous thrombosis and embolism; F43.12 Post-traumatic stress disorder, chronic; F17.210 Nicotine dependence, cigarettes, uncomplicated; G93.40 Encephalopathy, unspecified; F31.9 Bipolar disorder, unspecified
CPT/HCPCS: 36600; 71045; 80048; 80053; 80061; 80202; 81001; 82436; 82533; 82570; 82803; 82962; 83605; 83735; 84100; 84132; 84133; 84300; 84484; 85025; 85027; 85610; 85730; 87040; 87086; 87177; 87209; 87493; 87506; 87641; 92526; 93005; 93306; 97110; 97162; 97166; 97530; 99284; 99406; J2185; J7030; J7040; J7050; J7120; A4216; J2405; J3490

== ENCOUNTER 2018-05-26 11:46 | Inpatient (IN) | payer MEDICAID, SELFPAY ==
[2018-05-26] VITALS (38 sets, daily range): BP systolic 56–91; BP diastolic 44–72; PULSE 86–123; RESP 18–24; TEMP 35.9–37.2; O2SAT 96–100; BMI 19.3; BMI 18.3; BMI 18.4
--- NOTE | 2018-05-26 11:56 | EKG12_ITS ---
Test Reason : Blood Pressure : / mmHG Vent. Rate : 115 BPM Atrial Rate : 115 BPM P-R Int : 148 ms QRS Dur : 100 ms QT Int : 358 ms P-R-T Axes : 075 097 065 degrees QTc Int : 495 ms Sinus tachycardia Right atrial enlargement Rightward axis Incomplete right bundle branch block Cannot rule out Anterior infarct , age undetermined T wave abnormality, consider inferior ischemia Abnormal ECG Confirmed by JUAN MANUEL SUAZO, SHERIN ([id number]), staff editor MIREYA WEISS ([id number]) on 05/29/2018 3:06:10 PM Referred By: MIGUEL Confirmed By:SHERIN ZAMBRANO MD
[2018-05-26 12:45] LABS: Hematocrit 35.4 % (37-47); Hemoglobin 12.4 g/dl (12.0-15.0); Mean Corpuscular Hgb 28.2 pg (27.0-32.0); Mean Corpuscular Volume 80.6 fL (81-99); Mean Platelet Vol. 9.1 fl (6.2-12.0); Platelet Count 432 K/mm3 (150-450); RBC Distribution Width CV 17.8 % (11.6-14.6); RBC Distribution Width SD 50.6 fl (35.1-43.9); Red Blood Count 4.39 M/mm3 (4.2-5.4); White Blood Count 10.1 K/mm3 (4.4-11.0)
[2018-05-26 12:49] LABS: Differential Indicated MANUAL DIFF; POSITIVE COUNT YES; POSITIVE DIFFERENTIAL NO; POSITIVE MORPHOLOGY YES
[2018-05-26 12:55] LABS: ALB/GLOB Ratio 0.7 RATIO (0.9-2.4); AST(SGOT) 41 U/L (15-37); Alanine Aminotransfer ALT/SGPT 83 U/L (13-56); Albumin, Serum 2.9 g/dL (3.2-5.0); Alkaline Phosphatase 173 U/L (45-117); Anion Gap 13 (5-15); BUN 22 mg/dL (7-18); BUN/Creat Ratio 12.9 RATIO (10-20); Calcium,Total 8.2 mg/dL (8.5-10.1); Chloride 103 mmol/L (98-107); Creatinine, Serum 1.71 mg/dL (0.55-1.02); EST Glomerular Filtration Rate 33 mL/min (>60); Est Glom Filt Rate - Afr Amer 40 mL/min (>60); Estimated Creatinine Clearance 32.61 ml/min; Globulin 3.9 g/dL (2.2-4.2); Glucose 78 mg/dL (74-106); Potassium 2.5 mmol/L (3.5-5.1); Protein, Total 6.8 g/dL (6.4-8.2); Sodium Level 132 mmol/L (136-145)
--- NOTE | 2018-05-26 12:57 | ED.RN ---
potassium 2.[address] dr lu aware
[2018-05-26 12:59] LABS: Lactic Acid 1.2 mmol/L (0.4-2.0)
[2018-05-26] MEDS: Ondansetron 4 MG/2 ML Vial IV (12:59)
[2018-05-26 13:13] LABS: Eosinophil 4 % (0-5); Lymphocyte 24 % (19-41); Metamyelocyte 5 % (0-1); Monocyte 1 % (0-10); Neutrophil-Band 19 % (0-5); Neutrophil-Segmented 47 % (47-70); Total Cells Counted 100 (MANUAL DIFF)
[2018-05-26 13:14] LABS: Absolute Neutrophil Count 6.7 X10^3/uL (2.0-7.7); Neutrophil # 6.66 X10^3/uL (2.7-7.7); Platelet Estimate ADEQUATE (ADEQ); Red Cell Morphology NORM C+C NORMAL (NORM C&C)
--- NOTE | 2018-05-26 13:19 | ED.VISSUMM ---
- ER Visit Summary Date of Service: 05/26/18 Chief Complaint: [Weakness] History of Present Illness: The patient is a 52 F [presents the emergency department generalized weakness since yesterday. Patient's caregiver is with her and was over this morning to pick her up to take her to a doctor's appointment and she was found in the tub apparently had gotten in and then can get back out. Patient has a history of small cell lung cancer and undergoing chemotherapy. Patient also with history of COPD. Patient is not been eating or drinking very much. Patient was admitted for dehydration last week. Apparently patient was on vancomycin at that time they are not sure why. Patient denies any headache, chest pain, or shortness of breath. She denies any abdominal pain. She denies any fever or recent illness.] Patient does state that she felt hot today but did not take her temperature. Physical Examination: [HEENT-PERRLA, EOMI. Cranial nerves II through XII grossly intact. TMs clear. Mucous membranes dry. No adenopathy. Cardiovascular-regular rate and cardiac. No murmurs. Lungs-clear to auscultation, chest wall stable without crepitus or subcu emphysema Abdomen-normoactive bowel sounds, soft, nontender, no rebound or rigidity, no peritoneal signs. Extremities-intact ?4, normal range of motion, normal pulses, atraumatic] Test Results: [EKG obtained arrival shows sinus tachycardia with a ventricular rate of 115 bpm with some nonspecific ST changes. CBC with differential showed a white count 10.1, hemoglobin 12, hematocrit 35, platelets 432. Chemistry showed a sodium 132, potassium 2.5 CO2 was 16, glucose 78, BUN 21 creatinine was 1.71. LFTs showed alk phos 173, ALT of 83, AST 41, troponin less than 0.015.] Emergency Department Course and Treatment: [Patient had her port accessed and she was given 2 L normal saline. Patient was given 60 mg once potassium chloride.] Treatment Plan: [Admit] Disposition: Admit to ICU] Impression: [Dehydration Hypotension Hypokalemia] This note was generated with [employer] dictation software. It may contain incorrect words, spelling, and punctuation that were not noted in review of the chart prior to signing ED Disposition - Plan for ED Patient: Chief Complaint: Weakness Referrals: Fausto Iverson DO [Primary Care Provider] -
--- NOTE | 2018-05-26 13:23 | ED.DCSUM_ITS ---
- ER Visit Summary Date of Service: 05/26/18 Chief Complaint: [Weakness] History of Present Illness: The patient is a 52 F [presents the emergency department generalized weakness since yesterday. Patient's caregiver is with her and was over this morning to pick her up to take her to a doctor's appointment and she was found in the tub apparently had gotten in and then can get back out. Patient has a history of small cell lung cancer and undergoing chemotherapy. Patient also with history of COPD. Patient is not been eating or drinking very much. Patient was admitted for dehydration last week. Apparently patient was on vancomycin at that time they are not sure why. Patient denies any headache, chest pain, or shortness of breath. She denies any abdominal pain. She denies any fever or recent illness.] Patient does state that she felt hot today but did not take her temperature. Physical Examination: [HEENT-PERRLA, EOMI. Cranial nerves II through XII grossly intact. TMs clear. Mucous membranes dry. No adenopathy. Cardiovascular-regular rate and cardiac. No murmurs. Lungs-clear to auscultation, chest wall stable without crepitus or subcu emphysema Abdomen-normoactive bowel sounds, soft, nontender, no rebound or rigidity, no peritoneal signs. Extremities-intact ?4, normal range of motion, normal pulses, atraumatic] Test Results: [EKG obtained arrival shows sinus tachycardia with a ventricular rate of 115 bpm with some nonspecific ST changes. CBC with differential showed a white count 10.1, hemoglobin 12, hematocrit 35, platelets 432. Chemistry showed a sodium 132, potassium 2.5 CO2 was 16, glucose 78, BUN 21 creatinine was 1.71. LFTs showed alk phos 173, ALT of 83, AST 41, troponin less than 0.015.] Emergency Department Course and Treatment: [Patient had her port accessed and s he was given 2 L normal saline. Patient was given 60 mg once potassium chloride.] Treatment Plan: [Admit] Disposition: Admit to ICU] Impression: [Dehydration Hypotension Hypokalemia] This note was generated with [employer] dictation software. It may contain incorrect words, spelling, and punctuation that were not noted in review of the chart prior to signing ED Disposition - Plan for ED Patient: Chief Complaint: Weakness Referrals: Fausto Iverson DO [Primary Care Provider] -
[2018-05-26 14:14] LABS: Mucous, Urine 0 SEEN /hpf (<or=2+)
[2018-05-26 14:16] LABS: Color, Urine Yellow (Yellow); Glucose, Dipstick Normal (Normal); Ketone-Dipstick Negative (Negative); Leukocyte Esterase-Dipstick 25 /ul (Negative); Nitrite-Dipstick Negative (Negative); Occult Blood-Urine 150 /ul (Negative); Protein-Dipstick 100 mg/dl (Negative); Specific Gravity, Urine 1.005 (1.002-1.030); Urine Bilirubin Dipstick Negative (Negative); Urine Clarity Sl. Cloudy (Clear); Urine Urobilinogen Normal (Normal)
[2018-05-26 14:24] LABS: Bacteria 1+ /hpf (None Seen); Red Blood Cells-Urine 10-25 SEEN /hpf (0-5); Squamous Epithelial Cells - UA 0-5 SEEN /hpf (5-10); White Blood Cells 0-5 SEEN /hpf (0-5)
[2018-05-26] MEDS: 0.9% Normal Saline 1,000 ML 999 ML IV ×4 (14:30→17:35)
--- NOTE | 2018-05-26 14:41 | PCM.HP.STD ---
Problem List (1) Severe dehydration Status: Acute History of Present Illness Date of Admission: 05/26/18 Chief Complaint: weakness and hypotension x 2-3 days Is a 52-year-old female with a history of small cell lung cancer currently undergoing immunotherapy at [facility]. She is receiving treatment Ipilimumab and Nivolumab (Opdivo). Last treatment was 3 weeks ago. Patient was at was discharged just 4 days ago following an admission for intractable nausea vomiting and diarrhea with severe weakness acute kidney injury and dehydration. She presents to the emergency department with similar symptoms but apparently worse. She was found in the bathtub today extremely weak and unable to help herself out. Patient states that a day or 2 following discharge same symptoms of intractable nausea vomiting and diarrhea started again she also complains of severe weakness fatigue lethargy malaise and inability to walk or ambulate. In the emergency department patient was found to be hypotensive with systolic blood pressure in the 60s. She has received about 3 L of IV fluid with normal saline. Blood pressure remains in the 80s. Patient denies any chest pain but does admit to SOB. Appetite is extremely poor as well as intake. She denies any fever or chills. Past Medical History Past Medical History (Chronic Problems): Chronic Problems (Last Reviewed 05/16/18 @ 20:50 by Sohan Waddell MD) Bipolar affect, depressed (Chronic) Tobacco abuse (Chronic) Muscle spasm (Chronic) detention current use of anticoagulant (Chronic) Acid reflux disease (Chronic) Rotator cuff syndrome (Chronic) Adrenal nodule (Chronic) COPD (chronic obstructive pulmonary disease) (Chronic) Poor compliance with medication (Chronic) Left atrial thrombus (Chronic) Tobacco dependence (Chronic) PTSD (post-traumatic stress disorder) (Chronic) 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 [place] Spasm of back muscles (Chronic) Manic depression (Chronic) Dyspnea (Chronic) 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) Chest pain (Chronic) Medical History: Medical History (Last Reviewed 05/16/18 @ 20:50 by Sohan Waddell MD) Pulmonary embolism (Acute) I26.99 Tobacco abuse (Chronic) Z72.0 Muscle spasm (Chronic) M62.838 Periodontal disease (Acute) 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) Z79.01 Nausea & vomiting (Acute) R11.2 Acid reflux disease (Chronic) K21.9 Headache (Acute) R51 Rotator cuff syndrome (Chronic) M75.100 Adrenal nodule (Chronic) E27.9 Encounter for adjustment or management of vascular access device (Acute) Z45.2 Small cell lung cancer (Acute) C34.90 Regional lymph node metastasis present (Acute) C77.9 Lung metastasis (Acute) C78.00 COPD (chronic obstructive pulmonary disease) (Chronic) J44.9 Poor compliance with medication (Chronic) Z91.14 Left atrial thrombus (Chronic) [id number] Tobacco dependence (Chronic) F17.200 PTSD (post-traumatic stress disorder) (Chronic) F43.10 Thrombus of pulmonary vein (Chronic) I26.99 R pulmonary vein as it enters the [place] Spasm of back muscles (Chronic) M62.830 Manic depression (Chronic) F31.9 Dyspnea (Chronic) R06.00 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) I82.210 Chest pain (Chronic) R07.9 Allergies No Known Allergies Allergy (Verified 05/26/18 12:01) Home Medications: Ambulatory Orders Medication Instructions Recorded Mirtazapine [Remeron] 7.5 - 15 mg PO QHS PRN 05/31/17 Cyclobenzaprine HCl 5 mg PO TID PRN 05/16/18 Diazepam 10 mg PO BID PRN 05/16/18 Ondansetron [Zofran] 8 mg PO Q8H PRN PRN 05/16/18 Oxycodone [Oxyir] 5 mg PO Q6H PRN PRN 05/16/18 Potassium Chloride [K-Dur] 40 meq PO DAILY #30 tablet 05/22/18 Diphenoxylate HCl/Atropine 1 each PO Q4H PRN PRN 05/26/18 [Lomotil 2.5-0.025 mg Tablet] Nicotine [Nicotine Patch] 1 patch TD DAILY 05/26/18 Surgical History: Surgical History (Last Reviewed 05/16/18 @ 20:50 by Sohan Waddell MD) History of lung biopsy Z98.890 [facility] 09/29/17, Surgical History: - - 2 C sections and surgery on her foot Smoking Status: Current some day smoker - *Family History Maternal Family History: Family History (Last Reviewed 05/17/18 @ 03:08 by Sohan Waddell MD) Mother Diabetes Hypertension Cancer Father Cancer Headache Sister Cancer Brother Cancer History Items: Diabetes, Hypertension, - - mother of lung CA Paternal Family History: Family History (Last Reviewed 05/17/18 @ 03:08 by Sohan Waddell MD) Mother Diabetes Hypertension Cancer Father Cancer Headache Sister Cancer Brother Cancer History Items: - - father had pancreatitic CA Sibling Family History: Family History (Last Reviewed 05/17/18 @ 03:08 by Sohan Waddell MD) Mother Diabetes Hypertension Cancer Father Cancer Headache Sister Cancer Brother Cancer History Items: Cancer - 1 sister of lymphoma and a brother with pancreatic, - - no one in her family has been diagnosed with BPD Review of Systems Constitutional: Reports: Anorexia, Malaise, Weakness, Weight Change, Fatigue Cardiovascular: Reports: Light Headedness. Denies: Chest Pain Respiratory: Reports: Cough, Shortness of Breath, Shortness of breath upon exertion Neurological: Reports: Balance problems, Focal weakness Comment: All other systems were reviewed and found to be negative. VTE Information - Inpt Only VTE Present on Admission: No Patient Problems: Active and Suspected Problems (Last Reviewed 05/16/18 @ 20:50 by Sohan Waddell MD) Severe dehydration (Acute) - Physical Exam General: Alert, Oriented x3, Lethargic, - - Very weak and chronically ill looking listless and restless HEENT: Atraumatic Oral: Dry Mucosa Neck: Supple Lungs: - - Reduced breath sounds and air entry in the left hemithorax with mild wheezing there as well. Cardiovascular: Regular rate, Regular Rhythm, Normal S1, Normal S2, No murmurs, No Ectopic Activity Abdomen: Soft, Non Tender, Non-Distended, No Hepato-splenomegaly Extremities: No edema Skin: - - Scaly hyperpigmented plaque on the forehead with desquamation Neurological: Cranial nerves II-XII grossly intact, - - Weakness in legs. Psych/Mental Status: Depressed Vital Signs Temp Pulse Resp BP Pulse Ox 99.0 F 107 H 20 H 63/44 L 100 05/26/18 14:00 05/26/18 14:00 05/26/18 14:00 05/26/18 14:00 05/26/18 14:00 Oxygen Flow Rate (L/min) 2 Oxygen Delivery Method Nasal Cannula Weight: 54.3 kg Body Mass Index (BMI) 19.3 Laboratory Tests Past 24 Hrs 05/26/18 05/26/18 05/26/18 12:15 12:15 12:15 WBC 10.1 RBC 4.39 Hgb 12.4 Hct 35.4 L MCV 80.6 L MCH 28.2 MCHC 35.0 RDW 17.8 H RDW Differential 50.6 H Plt Count 432 MPV 9.1 Neut % (Auto) Not Reportable Absolute Neuts (auto) 6.7 Absolute Lymphs (auto) 2.40 Total Counted 100 Neutrophils % (Manual) 47 Band Neutrophils % 19 H Lymphocytes % (Manual) 24 Monocytes % (Manual) 1 Eosinophils % (Manual) 4 Metamyelocytes % 5 H Diff Path Review May foll Platelet Estimate ADEQUATE RBC Morphology NORM C+C Sodium 132 L Potassium 2.5 L* Chloride 103 Carbon Dioxide 16.0 L Anion Gap 13 BUN 22 H Creatinine 1.71 H Estim Creat Clear Calc 32.61 Est GFR (MDRD) Af Amer 40 L Est GFR (MDRD) Non-Af 33 L BUN/Creatinine Ratio 12.9 Glucose 78 Lactic Acid 1.2 Calcium 8.2 L Total Bilirubin 0.80 AST 41 H ALT 83 H Alkaline Phosphatase 173 H Troponin I < 0.015 Total Protein 6.8 Albumin 2.9 L Globulin 3.9 Albumin/Globulin Ratio 0.7 L Urine Color Urine Clarity Urine pH Ur Specific [place] Urine Protein Urine Glucose (UA) Urine Ketones Urine Occult Blood Urine Nitrite Urine Bilirubin Urine Urobilinogen Ur Leukocyte Esterase Urine RBC Urine WBC Ur Squamous Epith Cells Urine Bacteria Urine Mucus 05/26/18 14:05 WBC RBC Hgb Hct MCV MCH MCHC RDW RDW Differential Plt Count MPV Neut % (Auto) Absolute Neuts (auto) Absolute Lymphs (auto) Total Counted Neutrophils % (Manual) Band Neutrophils % Lymphocytes % (Manual) Monocytes % (Manual) Eosinophils % (Manual) Metamyelocytes % Diff Path Review Platelet Estimate RBC Morphology Sodium Potassium Chloride Carbon Dioxide Anion Gap BUN Creatinine Estim Creat Clear Calc Est GFR (MDRD) Af Amer Est GFR (MDRD) Non-Af BUN/Creatinine Ratio Glucose Lactic Acid Calcium Total Bilirubin AST ALT Alkaline Phosphatase Troponin I Total Protein Albumin Globulin Albumin/Globulin Ratio Urine Color Yellow Urine Clarity Sl. Cloudy Urine pH 7.0 Ur Specific [place] 1.005 Urine Protein 100 H Urine Glucose (UA) Normal Urine Ketones Negative Urine Occult Blood 150 H Urine Nitrite Negative Urine Bilirubin Negative Urine Urobilinogen Normal Ur Leukocyte Esterase 25 H Urine RBC 10-25 SEEN Urine WBC 0-5 SEEN Ur Squamous Epith Cells 0-5 SEEN Urine Bacteria 1+ Urine Mucus 0 SEEN Assessment/Plan All Active Problems (Last Reviewed 05/16/18 @ 20:50 by Sohan Waddell MD) Acute kidney injury (Acute) Hypokalemia (Acute) Abnormal EKG (Acute) Hyponatremia (Acute) Nausea vomiting and diarrhea (Acute) Severe dehydration (Acute) Pulmonary embolism (Acute) Periodontal disease (Acute) Nausea & vomiting (Acute) Headache (Acute) Encounter for adjustment or management of vascular access device (Acute) Small cell lung cancer (Acute) Regional lymph node metastasis present (Acute) Lung metastasis (Acute) 1. Intractable nausea vomiting and diarrhea. I doubt if this is an infectious gastroenteritis. Strongly suspect that this is related to the chemotherapy/immunotherapy that the patient has been receiving. We will treat symptomatically with aggressive treatment of nausea vomiting and diarrhea. 2. Severe dehydration secondary to #1 above with hypovolemic shock. Patient will be managed initially in the intensive care unit until hemodynamics are stable. She was normal blood glucose 2 We will aggressively rehydrate. 3. Acute kidney injury. Secondary to volume depletion. will aggressively rehydrate 4. Severe protein energy malnutrition secondary to cancer causing cachexia and markedly reduced caloric intake due to nausea and vomiting. 5. Hypokalemia secondary to potassium losses from the GI tract. Will repeat orally and intravenously. 6. Hyponatremia mild secondary to due to dehydration. 7. COPD stable and not in exacerbation at this time. 8. Small cell lung cancer getting systemic chemotherapy/immunotherapy. Code Visit Inpatient E&M: 14539 Init Hosp L3
[2018-05-26 16:18] LABS: Phosphorus 2.8 mg/dL (2.5-4.9)
[2018-05-26] MEDS: Potassium Chloride 40 MEQ in Dextrose 5%/0.9% NaCl 1,000 ML 150 MEQ IV (18:43)
[2018-05-26] MEDS: proCHLORPERazine 10 MG/2 ML Vial IV (18:50)
[2018-05-26] MEDS: Ondansetron 4 MG/2 ML Vial 8 MG IV ×2 (18:53→22:40)
[2018-05-26] MEDS: Mirtazapine 30 MG Tablet PO (21:54)
[2018-05-26] MEDS: Menthol/Lanolin/Calamine/Znox 113 GM Tube 1 APPLIC TOPICAL (21:55)
[2018-05-26] MEDS: 0.9% NaCl Peripheral Flush Adult/Peds IV (22:41)
[2018-05-27] VITALS (43 sets, daily range): BP systolic 71–107; BP diastolic 48–90; PULSE 99–131; RESP 18–29; TEMP 36.4–37.7; O2SAT 97–100
[2018-05-27] MEDS: proCHLORPERazine 10 MG/2 ML Vial IV ×5 (00:12→23:00)
[2018-05-27] MEDS: Potassium Chloride 40 MEQ in Dextrose 5%/0.9% NaCl 1,000 ML 150 MEQ IV (02:35)
[2018-05-27] MEDS: Acetaminophen 325 MG Tablet 650 MG PO (05:34)
[2018-05-27] MEDS: Loperamide 2 MG Capsule PO ×4 (05:34→22:52)
[2018-05-27] MEDS: Ondansetron 4 MG/2 ML Vial 8 MG IV ×3 (05:40→21:02)
[2018-05-27 06:00] LABS: Hematocrit 30.6 % (37-47); Hemoglobin 10.5 g/dl (12.0-15.0); Mean Corp Hgb Conc 34.3 g/gl (32-36); Mean Corpuscular Hgb 28.3 pg (27.0-32.0); Mean Corpuscular Volume 82.5 fL (81-99); Mean Platelet Vol. 8.7 fl (6.2-12.0); Platelet Count 365 K/mm3 (150-450); RBC Distribution Width CV 17.9 % (11.6-14.6); RBC Distribution Width SD 53.1 fl (35.1-43.9); Red Blood Count 3.71 M/mm3 (4.2-5.4); White Blood Count 7.8 K/mm3 (4.4-11.0)
[2018-05-27 06:01] LABS: Scan Indicated on CBC? Y/N NO
[2018-05-27 06:20] LABS: Phosphorus 3.1 mg/dL (2.5-4.9)
[2018-05-27 06:30] LABS: ALB/GLOB Ratio 0.6 RATIO (0.9-2.4); AST(SGOT) 43 U/L (15-37); Alanine Aminotransfer ALT/SGPT 63 U/L (13-56); Albumin, Serum 2.2 g/dL (3.2-5.0); Alkaline Phosphatase 163 U/L (45-117); Anion Gap 10 (5-15); BUN 12 mg/dL (7-18); Calcium,Total 7.1 mg/dL (8.5-10.1); Chloride 118 mmol/L (98-107); EST Glomerular Filtration Rate 50 mL/min (>60); Est Glom Filt Rate - Afr Amer 60 mL/min (>60); Estimated Creatinine Clearance 43.82 ml/min; Globulin 3.4 g/dL (2.2-4.2); Glucose 138 mg/dL (74-106); Potassium 3.2 mmol/L (3.5-5.1); Protein, Total 5.6 g/dL (6.4-8.2); Sodium Level 140 mmol/L (136-145)
--- NOTE | 2018-05-27 07:31 | CON.PCM_ITS ---
Reason for Consult Date of Consultation: 05/27/18 Reason for Consultation: Hypovolemic shock History of Present Illness: The patient is a 52-year-old female, with a history as outlined below, who presented to the emergency department on May 26 with generalized weakness and failure to thrive. The patient does have a known history of small cell lung cancer and COPD, for which she follows with Dr. Chucky Mckeon. She is currently on immunotherapy through the [facility]. The patient was just admitted to the hospital May 16 under similar circumstances with concerns for septic shock in the setting of hypotension and severe electrolyte abnormalities. The patient's infectious workup during her previous hospitalization was completely negative. She did receive stress dose steroids during her prior hospitalization. On presentation to the emergency department, the patient was noted to be afebrile, tachycardic and hypotensive. Laboratory evaluation revealed no evidence of a leukocytosis. Chemistry profile did reveal a sodium of 132, potassium of 2.5, serum bicarbonate of 16 and acute kidney injury with a creatinine of 1.71. Her lactate was only noted to be 1.2. AST and ALT were mildly elevated with an elevated alkaline phosphatase to 173. Troponin was negative. Urinalysis was largely unrevealing for the presence of infection. The patient received IV fluid resuscitation and was subsequently admitted to the medical intensive care unit in treatment for presumptive hypovolemic shock. The patient is currently overall net +2 L for the admission. She did have to be started on vasopressor support last night due to non-fluid responsive hypotension. She was also noted to have 3 loose bowel movements. This morning, she is quite lethargic, and will only answer a few of the questions posed to her. She currently denies the presence of abdominal pain, nausea or vomiting. 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 (Chronic) Acid reflux disease (Chronic) Rotator cuff syndrome (Chronic) Adrenal nodule (Chronic) COPD (chronic obstructive pulmonary disease) (Chronic) Poor compliance with medication (Chronic) Left atrial thrombus (Chronic) Tobacco dependence (Chronic) PTSD (post-traumatic stress disorder) (Chronic) 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 [place] Spasm of back muscles (Chronic) Manic depression (Chronic) Dyspnea (Chronic) 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) Chest pain (Chronic) Medical History: Medical History (Last Reviewed 05/16/18 @ 20:50 by Sohan Waddell MD) Pulmonary embolism (Acute) I26.99 Tobacco abuse (Chronic) Z72.0 Muscle spasm (Chronic) M62.838 Periodontal disease (Acute) K05.6 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 use of anticoagulant (Chronic) Z79.01 Nausea & vomiting (Acute) R11.2 Acid reflux disease (Chronic) K21.9 Headache (Acute) R51 Rotator cuff syndrome (Chronic) M75.100 Adrenal nodule (Chronic) E27.9 Encounter for adjustment or management of vascular access device (Acute) Z45.2 Small cell lung cancer (Acute) C34.90 Regional lymph node metastasis present (Acute) C77.9 Lung metastasis (Acute) C78.00 COPD (chronic obstructive pulmonary disease) (Chronic) J44.9 Poor compliance with medication (Chronic) Z91.14 Left atrial thrombus (Chronic) [id number] Tobacco dependence (Chronic) F17.200 PTSD (post-traumatic stress disorder) (Chronic) F43.10 Thrombus of pulmonary vein (Chronic) I26.99 R pulmonary vein as it enters the [place] Spasm of back muscles (Chronic) M62.830 Manic depression (Chronic) F31.9 Dyspnea (Chronic) R06.00 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) I82.210 Chest pain (Chronic) R07.9 Allergies No Known Allergies Allergy (Verified 05/26/18 12:01) Home Medications: Ambulatory Orders Medication Instructions Recorded Mirtazapine [Remeron] 7.5 - 15 mg PO QHS PRN 05/31/17 Cyclobenzaprine HCl 5 mg PO TID PRN 05/16/18 Diazepam 10 mg PO BID PRN 05/16/18 Ondansetron [Zofran] 8 mg PO Q8H PRN PRN 05/16/18 Oxycodone [Oxyir] 5 mg PO Q6H PRN PRN 05/16/18 Potassium Chloride [K-Dur] 40 meq PO DAILY #30 tablet 05/22/18 Diphenoxylate HCl/Atropine 1 each PO Q4H PRN PRN 05/26/18 [Lomotil 2.5-0.025 mg Tablet] Nicotine [Nicotine Patch] 1 patch TD DAILY 05/26/18 Surgical History: Surgical History (Last Reviewed 05/16/18 @ 20:50 by Sohan Waddell MD) History of lung biopsy Z98.890 [facility] 09/29/17, Surgical History: - - 2 C sections and surgery on her foot Smoking Status: Current some day smoker - *Family History Maternal Family History: Family History (Last Reviewed 05/17/18 @ 03:08 by Sohan Waddell MD) Mother Diabetes Hypertension Cancer Father Cancer Headache Sister Cancer Brother Cancer History Items: Diabetes, Hypertension, - - mother of lung CA Paternal Family History: Family History (Last Reviewed 05/17/18 @ 03:08 by Sohan Waddell MD) Mother Diabetes Hypertension Cancer Father Cancer Headache Sister Cancer Brother Cancer History Items: - - father had pancreatitic CA Sibling Family History: Family History (Last Reviewed 05/17/18 @ 03:08 by Sohan Waddell MD) Mother Diabetes Hypertension Cancer Father Cancer Headache Sister Cancer Brother Cancer History Items: Cancer - 1 sister of lymphoma and a brother with pancreatic, - - no one in her family has been diagnosed with BPD Review of Systems Constitutional: Reports: Weakness, Fatigue Eyes: Denies: Blurred vision, Double vision HEENT: Reports: Difficulty Swallowing, Dysphasia Cardiovascular: Denies: Chest Pain, Palpitations Respiratory: Denies: Cough, Shortness of breath at rest, Sputum production Gastrointestinal: Reports: Diarrhea. Denies: Abdominal Pain, Nausea, Vomiting Genitourinary: Denies: Dysuria Musculoskeletal: Reports: - - Chronic pain syndrome Skin: Reports: Dryness. Denies: Rash, Wounds Neurological: Reports: Balance problems Psychiatric: Reports: Depression Hematologic/ Lymphatic: Reports: Anemia Patient Problems: Active and Suspected Problems (Last Reviewed 05/16/18 @ 20:50 by Sohan Waddell MD) Severe dehydration (Acute) Objective: The patient's most recent lab work, culture data and imaging studies have all been personally reviewed. The patient's most recent lab work, culture data and imaging studies have all been personally reviewed. C. difficile was negative. Ova and parasites are currently pending. Prior surface echocardiogram revealed normal LV size and thickness with an ejection fraction of 60%. Pulmonary artery systolic pressure was unable to be estimated. - Physical Exam General: No apparent distress, Lethargic HEENT: Atraumatic, PERRLA, Normocephalic Oral: Dry Mucosa Neck: Supple, No Nodes, Trachea Midline Lungs: No rhonchi, No wheeze, No rales, Diminished Cardiovascular: Normal S1, Normal S2, No murmurs, Tachycardic Abdomen: Bowel Sounds Present, Soft, Non Tender Extremities: No cyanosis, No edema, Clubbing Skin: No breakdown Musculoskeletal: No Tenderness to Palpation of Joints or Extremities Lymphatic: No Cervical, Supraclavicular, or Inguinal Adenopathy Neurological: Neuro grossly intact Psych/Mental Status: Flat Affect Vital Signs Temp Pulse Resp BP Pulse Ox 99.1 F 113 H 23 H 79/52 L 99 05/27/18 07:00 05/27/18 07:00 05/27/18 07:00 05/27/18 07:00 05/27/18 07:00 Oxygen Flow Rate (L/min) 2 Oxygen Delivery Method Room Air Weight: 112 lb 14.027 oz Body Mass Index (BMI) 18.3 Intake and Output for Last 24 Hours 05/25/18 05/26/18 05/27/18 23:59 23:59 23:59 Intake Total 4050 / 4050 1944 / 1944 Output Total 1100 / 1100 2900 / 2900 Balance 2950 / 2950 -956 / -956 Microbiology Past 72 Hours 05/26/18 14:05 C. difficile DNA Amplification - Final Stool Laboratory Tests Past 24 Hrs 05/26/18 05/26/18 05/26/18 12:15 12:15 12:15 WBC 10.1 RBC 4.39 Hgb 12.4 Hct 35.4 L MCV 80.6 L MCH 28.2 MCHC 35.0 RDW 17.8 H RDW Differential 50.6 H Plt Count 432 MPV 9.1 Neut % (Auto) Not Reportable Absolute Neuts (auto) 6.7 Absolute Lymphs (auto) 2.40 Total Counted 100 Neutrophils % (Manual) 47 Band Neutrophils % 19 H Lymphocytes % (Manual) 24 Monocytes % (Manual) 1 Eosinophils % (Manual) 4 Metamyelocytes % 5 H Diff Path Review May foll Platelet Estimate ADEQUATE RBC Morphology NORM C+C Sodium 132 L Potassium 2.5 L* Chloride 103 Carbon Dioxide 16.0 L Anion Gap 13 BUN 22 H Creatinine 1.71 H Estim Creat Clear Calc 32.61 Est GFR (MDRD) Af Amer 40 L Est GFR (MDRD) Non-Af 33 L BUN/Creatinine Ratio 12.9 Glucose 78 Lactic Acid 1.2 Calcium 8.2 L Phosphorus Total Bilirubin 0.80 AST 41 H ALT 83 H Alkaline Phosphatase 173 H Troponin I < 0.015 Total Protein 6.8 Albumin 2.9 L Globulin 3.9 Albumin/Globulin Ratio 0.7 L Urine Color Urine Clarity Urine pH Ur Specific [place] Urine Protein Urine Glucose (UA) Urine Ketones Urine Occult Blood Urine Nitrite Urine Bilirubin Urine Urobilinogen Ur Leukocyte Esterase Urine RBC Urine WBC Ur Squamous Epith Cells Urine Bacteria Urine Mucus 05/26/18 05/26/18 05/27/18 12:15 14:05 05:45 WBC 7.8 RBC 3.71 L Hgb 10.5 L Hct 30.6 L MCV 82.5 MCH 28.3 MCHC 34.3 RDW 17.9 H RDW Differential 53.1 H Plt Count 365 MPV 8.7 Neut % (Auto) Absolute Neuts (auto) Absolute Lymphs (auto) Total Counted Neutrophils % (Manual) Band Neutrophils % Lymphocytes % (Manual) Monocytes % (Manual) Eosinophils % (Manual) Metamyelocytes % Diff Path Review Platelet Estimate RBC Morphology Sodium Potassium Chloride Carbon Dioxide Anion Gap BUN Creatinine Estim Creat Clear Calc Est GFR (MDRD) Af Amer Est GFR (MDRD) Non-Af BUN/Creatinine Ratio Glucose Lactic Acid Calcium Phosphorus 2.8 Total Bilirubin AST ALT Alkaline Phosphatase Troponin I Total Protein Albumin Globulin Albumin/Globulin Ratio Urine Color Yellow Urine Clarity Sl. Cloudy Urine pH 7.0 Ur Specific [place] 1.005 Urine Protein 100 H Urine Glucose (UA) Normal Urine Ketones Negative Urine Occult Blood 150 H Urine Nitrite Negative Urine Bilirubin Negative Urine Urobilinogen Normal Ur Leukocyte Esterase 25 H Urine RBC 10-25 SEEN Urine WBC 0-5 SEEN Ur Squamous Epith Cells 0-5 SEEN Urine Bacteria 1+ Urine Mucus 0 SEEN 05/27/18 05/27/18 05:45 05:45 WBC RBC Hgb Hct MCV MCH MCHC RDW RDW Differential Plt Count MPV Neut % (Auto) Absolute Neuts (auto) Absolute Lymphs (auto) Total Counted Neutrophils % (Manual) Band Neutrophils % Lymphocytes % (Manual) Monocytes % (Manual) Eosinophils % (Manual) Metamyelocytes % Diff Path Review Platelet Estimate RBC Morphology Sodium 140 Potassium 3.2 L Chloride 118 H Carbon Dioxide 12.0 L Anion Gap 10 BUN 12 Creatinine 1.20 H Estim Creat Clear Calc 43.82 Est GFR (MDRD) Af Amer 60 Est GFR (MDRD) Non-Af 50 L BUN/Creatinine Ratio 10.0 Glucose 138 H Lactic Acid Calcium 7.1 L Phosphorus 3.1 Total Bilirubin 0.50 AST 43 H ALT 63 H Alkaline Phosphatase 163 H Troponin I Total Protein 5.6 L Albumin 2.2 L Globulin 3.4 Albumin/Globulin Ratio 0.6 L Urine Color Urine Clarity Urine pH Ur Specific [place] Urine Protein Urine Glucose (UA) Urine Ketones Urine Occult Blood Urine Nitrite Urine Bilirubin Urine Urobilinogen Ur Leukocyte Esterase Urine RBC Urine WBC Ur Squamous Epith Cells Urine Bacteria Urine Mucus Assessment/Plan Active and Suspected Problems (Last Reviewed 05/16/18 @ 20:50 by Sohan Waddell MD) Severe dehydration (Acute) RECOMMENDATIONS: 1. Change fluids to D5 half-normal saline with potassium, given rising chloride level. 2. Potassium supplementation as ordered. 3. Continue Imodium 4. Check stool lactoferrin 5. Obtain plain film chest x-ray, along with blood and urine cultures. 6. Perform cosyntropin stimulation test, after which time, stress dose steroids can be initiated as indicated. 7. Potassium repletion as ordered. IMPRESSIONS: 1. Distributive versus hypovolemic shock The patient presented with hypotension, similar to her previous hospitalization. She has been volume resuscitated with IV fluids, but has remained hemodynamically unstable, requiring vasopressor initiation. Continue Levophed to maintain a mean arterial pressure at or above 65 mmHg. We will plan to check a cosyntropin stimulation test and evaluation for potential adrenal insufficiency. Following the completion of the test, the patient can be started empirically on stress dose steroids. C. difficile was again negative with stool for ova and parasites currently pending. Given that the patient currently has no fever or white count, will hold off on empiric antibiotics. Additional supplemental IV fluid hydration will likely be required, given the patient's ongoing GI losses. 2. Acute kidney injury likely secondary to prerenal azotemia Improving with volume expansion. We will continue to monitor urine output. No indication for renal replacement therapy at this time. 3. Hyponatremia/hypokalemia/non-anion gap metabolic acidosis Likely secondary to intravascular volume depletion from gastrointestinal losses. We will continue supplemental IV fluid hydration as ordered. 4. Small cell lung cancer of the right lung Patient currently receiving immunotherapy at [facility]. 5. Severe protein calorie malnutrition/debility/recurrent hypoglycemia/bipolar/minimal tobacco abuse Complicates care, management, recovery and prognosis. Continue nicotine replacement therapy. Nutrition is following. TIME: 45 minutes of critical care time, independent of procedures, was spent addressing the patient's hypovolemic versus septic shock, acute kidney injury, hyponatremia, now an anion gap metabolic acidosis, small cell lung cancer, review of all data and collaboration with the care team. ([id number]) Code Visit 9xxxx: [id number] Critical care first hour
[2018-05-27 08:06] LABS: Magnesium 2.3 mg/dL (1.6-2.6)
[2018-05-27] MEDS: 0.9% NaCl Peripheral Flush Adult/Peds IV ×3 (08:17→11:37)
[2018-05-27] MEDS: Cosyntropin 0.25 MG Vial IV (08:17)
--- NOTE | 2018-05-27 08:35 | PCM.PN.HOSP ---
Patient Problems: Active and Suspected Problems (Last Reviewed 05/16/18 @ 20:50 by Sohan Waddell MD) Severe dehydration (Acute) Subjective: Patient was seen and examined. Remains in ICU, started on Levophed last night. Vitals/I&O's: Vital Signs Temp Pulse Resp BP Pulse Ox 97.5 F L 109 H 22 H 98/63 99 05/27/18 08:25 05/27/18 08:00 05/27/18 08:00 05/27/18 08:00 05/27/18 08:00 Oxygen Flow Rate (L/min) 2 Oxygen Delivery Method Room Air Weight: 51.2 kg Body Mass Index (BMI) 18.3 Intake and Output for Last 24 Hours 05/25/18 05/26/18 05/27/18 23:59 23:59 23:59 Intake Total 4050 / 4050 1944 / 1944 Output Total 1100 / 1100 2900 / 2900 Balance 2950 / 2950 -956 / -956 General: Alert, Cooperative, Lethargic HEENT: Atraumatic, PERRLA, EOMI, Normocephalic Neck: Supple Lungs: Clear to auscultation, Normal air movement Cardiovascular: Regular rate, Regular Rhythm, Normal S1, Normal S2, No murmurs Abdomen: Bowel Sounds Present, Soft, Non Tender, Non-Distended, No Hepato-splenomegaly Extremities: No edema Skin: No rashes, No breakdown Musculoskeletal: No Tenderness to Palpation of Joints or Extremities Lymphatic: No Cervical, Supraclavicular, or Inguinal Adenopathy Neurological: Cranial nerves II-XII grossly intact, Neuro grossly intact Psych/Mental Status: Normal Affect, Appropriate Microbiology Past 72 Hours 05/26/18 14:05 Stool C. difficile DNA Amplification - Final Laboratory Results 05/26/18 12:15: WBC 10.1, RBC 4.39, Hgb 12.4, Hct 35.4 L, MCV 80.6 L, MCH 28.2, MCHC 35.0, RDW 17.8 H, RDW Differential 50.6 H, Plt Count 432, MPV 9.1, Neut % (Auto) Not Reportable, Absolute Neuts (auto) 6.7, Absolute Lymphs (auto) 2.40, Total Counted 100, Neutrophils % (Manual) 47, Band Neutrophils % 19 H, Lymphocytes % (Manual) 24, Monocytes % (Manual) 1, Eosinophils % (Manual) 4, Metamyelocytes % 5 H, Diff Path Review December, Platelet Estimate ADEQUATE, RBC Morphology NORM C+C 05/26/18 12:15: Sodium 132 L, Potassium 2.5 L*, Chloride 103, Carbon Dioxide 16.0 L, Anion Gap 13, BUN 22 H, Creatinine 1.71 H, Estim Creat Clear Calc 32.61, Est GFR (MDRD) Af Amer 40 L, Est GFR (MDRD) Non-Af 33 L, BUN/Creatinine Ratio 12.9, Glucose 78, Calcium 8.2 L, Total Bilirubin 0.80, AST 41 H, ALT 83 H, Alkaline Phosphatase 173 H, Troponin I < 0.015, Total Protein 6.8, Albumin 2.9 L, Globulin 3.9, Albumin/Globulin Ratio 0.7 L 05/26/18 12:15: Lactic Acid 1.2 05/26/18 12:15: Phosphorus 2.8 05/26/18 14:05: Urine Color Yellow, Urine Clarity Sl. Cloudy, Urine pH 7.0, Ur Specific [place] 1.005, Urine Protein 100 H, Urine Glucose (UA) Normal, Urine Ketones Negative, Urine Occult Blood 150 H, Urine Nitrite Negative, Urine Bilirubin Negative, Urine Urobilinogen Normal, Ur Leukocyte Esterase 25 H, Urine RBC 10-25 SEEN, Urine WBC 0-5 SEEN, Ur Squamous Epith Cells 0-5 SEEN, Urine Bacteria 1+, Urine Mucus 0 SEEN 05/27/18 05:45: WBC 7.8, RBC 3.71 L, Hgb 10.5 L, Hct 30.6 L, MCV 82.5, MCH 28.3, MCHC 34.3, RDW 17.9 H, RDW Differential 53.1 H, Plt Count 365, MPV 8.7 05/27/18 05:45: Sodium 140, Potassium 3.2 L, Chloride 118 H, Carbon Dioxide 12.0 L, Anion Gap 10, BUN 12, Creatinine 1.20 H, Estim Creat Clear Calc 43.82, Est GFR (MDRD) Af Amer 60, Est GFR (MDRD) Non-Af 50 L, BUN/Creatinine Ratio 10.0, Glucose 138 H, Calcium 7.1 L, Total Bilirubin 0.50, AST 43 H, ALT 63 H, Alkaline Phosphatase 163 H, Total Protein 5.6 L, Albumin 2.2 L, Globulin 3.4, Albumin/Globulin Ratio 0.6 L 05/27/18 05:45: Phosphorus 3.1 05/27/18 05:53: Magnesium 2.3 05/27/18 08:15: Cortisol Pending Current Medications Acetaminophen (Tylenol) 650 mg PO Q6H PRN PRN PRN Reason: Fever >101 Last Admin: 05/27/18 05:34 Dose: 650 mg Calamine/Phenol (Calmoseptine Ointment) 1 applic TOPICAL 4X/DAY [facility]; Protocol Last Admin: 05/26/18 21:55 Dose: 1 applicatio Diazepam (Valium) 10 mg PO BID PRN PRN PRN Reason: ANXIETY Enoxaparin Sodium (Lovenox) 40 mg SC DAILY@1000 [place] Heparin Sodium (Beef Lung) () 50 units IV UD PRN PRN Reason: HEPARIN FLUSH Potassium Chloride 40 meq/ (Dextrose/Sodium Chloride) 1,020 mls @ 150 mls/hr IV .[id number] [facility] Last Admin: 05/27/18 02:35 Dose: 150 mls/hr Norepinephrine Bitartrate 8 mg (/ Dextrose) 258 mls @ 9.68 mls/hr IV .[id number] [facility]; Protocol Last Admin: 05/26/18 20:26 Dose: 9.68 mls/hr Potassium Chloride 40 meq/ (Sodium Chloride) 120 mls @ 100 mls/hr IV BOLUS X1 ONE Stop: 05/27/18 09:41 Loperamide HCl (Imodium) 2 mg PO Q4H PRN PRN PRN Reason: Diarrhea Last Admin: 05/27/18 05:34 Dose: 2 mg Magnesium Hydroxide (Milk Of Magnesia) 30 ml PO DAILY PRN PRN PRN Reason: Constipation Mirtazapine (Remeron) 30 mg PO HS [facility] Last Admin: 05/26/18 21:54 Dose: 30 mg Nicotine (Nicoderm Cq (Pbkc)) 21 mg TRANSDERM. DAILY [facility] Last Admin: 05/26/18 18:49 Dose: 21 mg Nutritional Formula (Lactose Free) (Ensure Enlive) 120 ml PO 4X/DAY [facility] Last Admin: 05/26/18 21:54 Dose: Not Given Ondansetron HCl (Zofran) 8 mg IV Q8 [place] Last Admin: 05/27/18 05:40 Dose: 8 mg Oxycodone HCl (Oxyir) 5 mg PO Q6H PRN PRN PRN Reason: PAIN Prochlorperazine Edisylate (Compazine Iv) 10 mg IV Q6 [place] Last Admin: 05/27/18 05:38 Dose: 10 mg Sodium Chloride () 5 - 30 ml IV UD PRN PRN Reason: SALINE FLUSH Last Admin: 05/27/18 08:17 Dose: 30 ml Sodium Chloride () 10 ml IV UD PRN PRN Reason: VAD FLUSH Medical Necessity - Tobacco Use Smoking Status: Current some day smoker Assessment/Plan All Active Problems (Last Reviewed 05/16/18 @ 20:50 by Sohan Waddell MD) Acute kidney injury (Acute) Hypokalemia (Acute) Abnormal EKG (Acute) Hyponatremia (Acute) Nausea vomiting and diarrhea (Acute) Severe dehydration (Acute) Pulmonary embolism (Acute) Periodontal disease (Acute) Nausea & vomiting (Acute) Headache (Acute) Encounter for adjustment or management of vascular access device (Acute) Small cell lung cancer (Acute) Regional lymph node metastasis present (Acute) Lung metastasis (Acute) 52-year-old female with past medical history of small cell lung cancer status on immunotherapy, COPD, chronic smoker who was admitted with hypotension has since been managed in the ICU. 1. Hypovolemic shock due to dehydration, persistent, remains on IV fluids, started on levophed, will continue to wean off inotropic support, pulse 65 2. Intractable nausea, vomiting, diarrhea, resolved, will continue to monitor symptomatically 3. Hypokalemia, no noted hypomagnesemia, magnesium is 2.3, replaced, recheck in a.m. 4. Acute kidney injury secondary to dehydration, improving with hydration, creatinine improved to 1.2 from 1.71, will continue to monitor. 5. Hyponatremia, acute, hypovolemic, resolved, will continue to monitor 6. Non-anion gap metabolic acidosis secondary to acute kidney injury, will continue to monitor 7. COPD, not in acute exacerbation, stable, on room air 8. History of small cell lung cancer, on immunotherapy 9. DVT prophylaxis with Lovenox subcu Code Visit Inpatient E&M: 09521 [facility] L3
--- NOTE | 2018-05-27 08:39 | PN_ITS ---
Patient Problems: Active and Suspected Problems (Last Reviewed 05/16/18 @ 20:50 by Sohan Waddell MD) Severe dehydration (Acute) Subjective: Patient was seen and examined. Remains in ICU, started on Levophed last night. Vitals/I&O's: Vital Signs Temp Pulse Resp BP Pulse Ox 97.5 F L 109 H 22 H 98/63 99 05/27/18 08:25 05/27/18 08:00 05/27/18 08:00 05/27/18 08:00 05/27/18 08:00 Oxygen Flow Rate (L/min) 2 Oxygen Delivery Method Room Air Weight: 51.2 kg Body Mass Index (BMI) 18.3 Intake and Output for Last 24 Hours 05/25/18 05/26/18 05/27/18 23:59 23:59 23:59 Intake Total 4050 / 4050 1944 / 1944 Output Total 1100 / 1100 2900 / 2900 Balance 2950 / 2950 -956 / -956 General: Alert, Cooperative, Lethargic HEENT: Atraumatic, PERRLA, EOMI, Normocephalic Neck: Supple Lungs: Clear to auscultation, Normal air movement Cardiovascular: Regular rate, Regular Rhythm, Normal S1, Normal S2, No murmurs Abdomen: Bowel Sounds Present, Soft, Non Tender, Non-Distended, No Hepato- splenomegaly Extremities: No edema Skin: No rashes, No breakdown Musculoskeletal: No Tenderness to Palpation of Joints or Extremities Lymphatic: No Cervical, Supraclavicular, or Inguinal Adenopathy Neurological: Cranial nerves II-XII grossly intact, Neuro grossly intact Psych/Mental Status: Normal Affect, Appropriate Microbiology Past 72 Hours 05/26/18 14:05 Stool C. difficile DNA Amplification - Final Laboratory Results 05/26/18 12:15: WBC 10.1, RBC 4.39, Hgb 12.4, Hct 35.4 L, MCV 80.6 L, MCH 28.2, MCHC 35.0, RDW 17.8 H, RDW Differential 50.6 H, Plt Count 432, MPV 9.1, Neut % (Auto) Not Reportable, Absolute Neuts (auto) 6.7, Absolute Lymphs (auto) 2.40, Total Counted 100, Neutrophils % (Manual) 47, Band Neutrophils % 19 H, Lymphocytes % (Manual) 24, Monocytes % (Manual) 1, Eosinophils % (Manual) 4, Metamyelocytes % 5 H, Diff Path Review December, Platelet Estimate ADEQUATE, RBC Morphology NORM C+C 05/26/18 12:15: Sodium 132 L, Potassium 2.5 L*, Chloride 103, Carbon Dioxide 16.0 L, Anion Gap 13, BUN 22 H, Creatinine 1.71 H, Estim Creat Clear Calc 32.61, Est GFR (MDRD) Af Amer 40 L, Est GFR (MDRD) Non-Af 33 L, BUN/Creatinine Ratio 12.9, Glucose 78, Calcium 8.2 L, Total Bilirubin 0.80, AST 41 H, ALT 83 H, Alkaline Phosphatase 173 H, Troponin I < 0.015, Total Protein 6.8, Albumin 2.9 L , Globulin 3.9, Albumin/Globulin Ratio 0.7 L 05/26/18 12:15: Lactic Acid 1.2 05/26/18 12:15: Phosphorus 2.8 05/26/18 14:05: Urine Color Yellow, Urine Clarity Sl. Cloudy, Urine pH 7.0, Ur Specific [place] 1.005, Urine Protein 100 H, Urine Glucose (UA) Normal, Urine Ketones Negative, Urine Occult Blood 150 H, Urine Nitrite Negative, Urine Bilirubin Negative, Urine Urobilinogen Normal, Ur Leukocyte Esterase 25 H, Urine RBC 10-25 SEEN, Urine WBC 0-5 SEEN, Ur Squamous Epith Cells 0-5 SEEN, Urine Bacteria 1+, Urine Mucus 0 SEEN 05/27/18 05:45: WBC 7.8, RBC 3.71 L, Hgb 10.5 L, Hct 30.6 L, MCV 82.5, MCH 28.3, MCHC 34.3, RDW 17.9 H, RDW Differential 53.1 H, Plt Count 365, MPV 8.7 05/27/18 05:45: Sodium 140, Potassium 3.2 L, Chloride 118 H, Carbon Dioxide 12.0 L, Anion Gap 10, BUN 12, Creatinine 1.20 H, Estim Creat Clear Calc 43.82, Est GFR (MDRD) Af Amer 60, Est GFR (MDRD) Non-Af 50 L, BUN/Creatinine Ratio 10.0, Glucose 138 H, Calcium 7.1 L, Total Bilirubin 0.50, AST 43 H, ALT 63 H, Alkaline Phosphatase 163 H, Total Protein 5.6 L, Albumin 2.2 L, Globulin 3.4, Albumin/Globulin Ratio 0.6 L 05/27/18 05:45: Phosphorus 3.1 05/27/18 05:53: Magnesium 2.3 05/27/18 08:15: Cortisol Pending Current Medications Acetaminophen (Tylenol) 650 mg PO Q6H PRN PRN PRN Reason: Fever >101 Last Admin: 05/27/18 05:34 Dose: 650 mg Calamine/Phenol (Calmoseptine Ointment) 1 applic TOPICAL 4X/DAY REPLACED BY [facility]; Protocol Last Admin: 05/26/18 21:55 Dose: 1 applicatio Diazepam (Valium) 10 mg PO BID PRN PRN PRN Reason: ANXIETY Enoxaparin Sodium (Lovenox) 40 mg SC DAILY@1000 [place]CR[place] Heparin Sodium (Beef Lung) () 50 units IV UD PRN PRN Reason: HEPARIN FLUSH Potassium Chloride 40 meq/ (Dextrose/Sodium Chloride) 1,020 mls @ 150 mls/hr IV .[id number] REPLACED BY [facility] Last Admin: 05/27/18 02:35 Dose: 150 mls/hr Norepinephrine Bitartrate 8 mg (/ Dextrose) 258 mls @ 9.68 mls/hr IV .[id number] REPLACED BY [facility]; Protocol Last Admin: 05/26/18 20:26 Dose: 9.68 mls/hr Potassium Chloride 40 meq/ (Sodium Chloride) 120 mls @ 100 mls/hr IV BOLUS X1 ONE Stop: 05/27/18 09:41 Loperamide HCl (Imodium) 2 mg PO Q4H PRN PRN PRN Reason: Diarrhea Last Admin: 05/27/18 05:34 Dose: 2 mg Magnesium Hydroxide (Milk Of Magnesia) 30 ml PO DAILY PRN PRN PRN Reason: Constipation Mirtazapine (Remeron) 30 mg PO HS REPLACED BY [facility] Last Admin: 05/26/18 21:54 Dose: 30 mg Nicotine (Nicoderm Cq (Pbkc)) 21 mg TRANSDERM. DAILY REPLACED BY [facility] Last Admin: 05/26/18 18:49 Dose: 21 mg Nutritional Formula (Lactose Free) (Ensure Enlive) 120 ml PO 4X/DAY REPLACED BY [facility] Last Admin: 05/26/18 21:54 Dose: Not Given Ondansetron HCl (Zofran) 8 mg IV Q8 LUCRECIA Last Admin: 05/27/18 05:40 Dose: 8 mg Oxycodone HCl (Oxyir) 5 mg PO Q6H PRN PRN PRN Reason: PAIN Prochlorperazine Edisylate (Compazine Iv) 10 mg IV Q6 LUCRECIA Last Admin: 05/27/18 05:38 Dose: 10 mg Sodium Chloride () 5 - 30 ml IV UD PRN PRN Reason: SALINE FLUSH Last Admin: 05/27/18 08:17 Dose: 30 ml Sodium Chloride () 10 ml IV UD PRN PRN Reason: VAD FLUSH Medical Necessity - Tobacco Use Smoking Status: Current some day smoker Assessment/Plan All Active Problems (Last Reviewed 05/16/18 @ 20:50 by Sohan Waddell MD) Acute kidney injury (Acute) Hypokalemia (Acute) Abnormal EKG (Acute) Hyponatremia (Acute) Nausea vomiting and diarrhea (Acute) Severe dehydration (Acute) Pulmonary embolism (Acute) Periodontal disease (Acute) Nausea & vomiting (Acute) Headache (Acute) Encounter for adjustment or management of vascular access device (Acute) Small cell lung cancer (Acute) Regional lymph node metastasis present (Acute) Lung metastasis (Acute) 52-year-old female with past medical history of small cell lung cancer status on immunotherapy, COPD, chronic smoker who was admitted with hypotension has since been managed in the ICU. 1. Hypovolemic shock due to dehydration, persistent, remains on IV fluids, started on levophed, will continue to wean off inotropic support, pulse 65 2. Intractable nausea, vomiting, diarrhea, resolved, will continue to monitor symptomatically 3. Hypokalemia, no noted hypomagnesemia, magnesium is 2.3, replaced, recheck in a.m. 4. Acute kidney injury secondary to dehydration, improving with hydration, creatinine improved to 1.2 from 1.71, will continue to monitor. 5. Hyponatremia, acute, hypovolemic, resolved, will continue to monitor 6. Non-anion gap metabolic acidosis secondary to acute kidney injury, will continue to monitor 7. COPD, not in acute exacerbation, stable, on room air 8. History of small cell lung cancer, on immunotherapy 9. DVT prophylaxis with Lovenox subcu Code Visit Inpatient E&M: 34634 [facility] Hosp L3
--- NOTE | 2018-05-27 08:52 | RAD_ITS ---
STUDY: X-RAY CHEST REASON FOR EXAM: Female, 52 years old. Short of breath TECHNIQUE: Single AP portable view of the chest. COMPARISON: 05/17/2018 FINDINGS: There is a right Port-A-Cath and/or mediport in place. The tip is in the superior vena cava. There is hyperinflation of the lungs consistent with chronic obstructive lung disease (COPD). There is no demonstrated pleural abnormality. Normal size heart. Normal mediastinum and dyan. Normal visualized pulmonary arteries. Normal visualized aortic arch and descending thoracic aorta. Normal visualized thoracic spine. Normal visualized ribs, clavicles, and shoulders. There is no demonstrated abnormality of the visualized soft tissue structures of the upper abdomen. RAD/Chest 1 View (Portable) IMPRESSION: Normal x-ray examination of the chest. Electronically Signed: Evens Ann MD at 17:56 EDT , Service support ,
[2018-05-27] MEDS: Menthol/Lanolin/Calamine/Znox 113 GM Tube 1 APPLIC TOPICAL ×4 (10:22→21:03)
[2018-05-27] MEDS: Enoxaparin 40 MG/0.4 ML Syringe SC (10:23)
--- NOTE | 2018-05-27 11:23 | CASEMGMT ---
Social Work Note Pt discharged from [facility] last week. Introduced self and role at [facility]. The pt reports that she lives alone in a one-story home. Her primary support is her friend Brian. She is undergoing treatment for Cancer at [facility] in [place]. Claims that a man from [facility] came out and she does not want people at her house. Inquire if she thinks she can manage at home, or if she will need additional therapy prior to returning. She states she would prefer to do it here. Then pt states that she will return home. Discuss that PT/OT will evaluate the pt and can make a determination at that time. Pt is in agreement. No further needs at this time. SW to f/u on Tuesday. Plan: Home vs. SNF Geri Robertson, TRANSACTION ADVISORY SERVICES MANAGER, [employer]
[2018-05-27] MEDS: Potassium Chloride 40 MEQ in Dext 5%-0.45% NS 1,000 ML 150 MEQ IV ×2 (11:35→18:25)
[2018-05-27] MEDS: Hydrocortisone Sod Succinate 100 MG/2 ML Vial 50 MG IV ×2 (17:45→23:00)
[2018-05-27] MEDS: 0.9% NaCl VAD Flush 10 ML IV ×2 (21:02→23:00)
[2018-05-27] MEDS: Mirtazapine 30 MG Tablet PO (21:02)
[2018-05-28] VITALS (34 sets, daily range): BP systolic 81–133; BP diastolic 58–101; PULSE 97–113; RESP 12–25; TEMP 35.9–37.1; O2SAT 99–100
[2018-05-28] MEDS: Potassium Chloride 40 MEQ in Dext 5%-0.45% NS 1,000 ML 150 MEQ IV ×4 (01:25→23:03)
[2018-05-28] MEDS: Loperamide 2 MG Capsule PO (02:53)
[2018-05-28 04:32] LABS: Absolute Lymphocyte Count 0.94 X10^3/ul (0.83-4.51); Absolute Neutrophil Count 4.5 X10^3/uL (2.0-7.7); Basophil# 0.02 X10^3/uL; Basophil% 0.3 % (0-1); Hematocrit 26.9 % (37-47); Hemoglobin 9.3 g/dl (12.0-15.0); Lymphocyte # 0.94 X10^3/ul (4.0); Lymphocyte % 16.2 % (19-41); Mean Corp Hgb Conc 34.6 g/gl (32-36); Mean Corpuscular Hgb 28.4 pg (27.0-32.0); Mean Corpuscular Volume 82.3 fL (81-99); Mean Platelet Vol. 9.3 fl (6.2-12.0); Monocyte# 0.29 X10^3/uL; Neutrophil % 77.6 % (47-70); Platelet Count 332 K/mm3 (150-450); Red Blood Count 3.27 M/mm3 (4.2-5.4); White Blood Count 5.8 K/mm3 (4.4-11.0)
[2018-05-28 04:46] LABS: POSITIVE COUNT NO; POSITIVE DIFFERENTIAL NO; POSITIVE MORPHOLOGY NO
[2018-05-28 04:47] LABS: Anion Gap 14 (5-15); BUN 9 mg/dL (7-18); BUN/Creat Ratio 8.7 RATIO (10-20); Calcium,Total 7.4 mg/dL (8.5-10.1); Chloride 113 mmol/L (98-107); Creatinine, Serum 1.03 mg/dL (0.55-1.02); EST Glomerular Filtration Rate 59 mL/min (>60); Est Glom Filt Rate - Afr Amer 72 mL/min (>60); Estimated Creatinine Clearance 51.06 ml/min; Glucose 191 mg/dL (74-106); Potassium 3.5 mmol/L (3.5-5.1); Sodium Level 139 mmol/L (136-145)
[2018-05-28] MEDS: Hydrocortisone Sod Succinate 100 MG/2 ML Vial 50 MG IV ×4 (05:34→23:04)
[2018-05-28] MEDS: proCHLORPERazine 10 MG/2 ML Vial IV ×4 (05:34→23:05)
[2018-05-28] MEDS: Ondansetron 4 MG/2 ML Vial 8 MG IV ×3 (05:34→22:20)
[2018-05-28] MEDS: 0.9% NaCl VAD Flush 10 ML IV (05:34)
--- NOTE | 2018-05-28 07:20 | PN_ITS ---
Subjective: The patient was seen and examined at the bedside this morning. Events from the last 24 hours have been reviewed. The patient is currently afebrile and maintaining appropriate oxygen saturations on room air. Her Levophed requirement has been decreased to 3 mcg as of this morning. The patient was started on stress dose steroids yesterday, following the completion of her cosyntropin stimulation test. She continues to have a large amount of diarrhea, per nursing report. Creatinine continues to improve. The patient was noted by the speech therapist this morning to be coughing quite a bit with ingestion of water. She is currently on a modified diet. Objective: The patient's most recent lab work, culture data and imaging studies have all been personally reviewed. The patient's most recent lab work, culture data and imaging studies have all been personally reviewed. C. difficile was negative. Ova and parasites are currently pending. Prior surface echocardiogram revealed normal LV size and thickness with an ejection fraction of 60%. Pulmonary artery systolic pressure was unable to be estimated. Stool lactoferrin was positive. Blood and urine cultures are pending. Plain film chest x-ray revealed no acute cardiopulmonary process. General: Alert, Cooperative, No apparent distress HEENT: Atraumatic, PERRLA, Normocephalic Oral: Dry Mucosa Neck: Supple, No Nodes, Trachea Midline Lungs: No rhonchi, No wheeze, No rales, Diminished Cardiovascular: Normal S1, Normal S2, No murmurs, Tachycardic Abdomen: Bowel Sounds Present, Soft, Non Tender Extremities: No cyanosis, No edema, Clubbing Musculoskeletal: No Tenderness to Palpation of Joints or Extremities Lymphatic: No Cervical, Supraclavicular, or Inguinal Adenopathy Neurological: Neuro grossly intact Psych/Mental Status: Flat Affect Vital Signs Temp Pulse Resp BP Pulse Ox 98.2 F 98 19 H 81/59 L 100 05/28/18 00:00 05/28/18 06:00 05/28/18 06:00 05/28/18 06:00 05/28/18 06:00 Oxygen Flow Rate (L/min) 2 Oxygen Delivery Method Room Air Weight: 115 lb 15.41 oz Body Mass Index (BMI) 18.3 Intake and Output for Last 24 Hours 05/26/18 05/27/18 05/28/18 23:59 23:59 23:59 Intake Total 4050 / 4050 3924 / 3924 1903.1 / 1903.1 Output Total 1100 / 1100 3950 / 3950 1350 / 1350 Balance 2950 / 2950 -26 / -26 553.1 / 553.1 Labs (Last 48 Hours) 05/26/18 05/26/18 05/26/18 12:15 12:15 12:15 WBC 10.1 RBC 4.39 Hgb 12.4 Hct 35.4 L MCV 80.6 L MCH 28.2 MCHC 35.0 RDW 17.8 H RDW Differential 50.6 H Plt Count 432 MPV 9.1 Immature Gran % (Auto) Neut % (Auto) Not Reportable Lymph % (Auto) [place] % (Auto) Eos % (Auto) Baso % (Auto) Absolute Neuts (auto) 6.7 Absolute Lymphs (auto) 2.40 Total Counted 100 Neutrophils % (Manual) 47 Band Neutrophils % 19 H Lymphocytes % (Manual) 24 Monocytes % (Manual) 1 Eosinophils % (Manual) 4 Metamyelocytes % 5 H Diff Path Review May foll Platelet Estimate ADEQUATE RBC Morphology NORM C+C Sodium 132 L Potassium 2.5 L* Chloride 103 Carbon Dioxide 16.0 L Anion Gap 13 BUN 22 H Creatinine 1.71 H Estim Creat Clear Calc 32.61 Est GFR (MDRD) Af Amer 40 L Est GFR (MDRD) Non-Af 33 L BUN/Creatinine Ratio 12.9 Glucose 78 Lactic Acid 1.2 Calcium 8.2 L Phosphorus Magnesium Total Bilirubin 0.80 AST 41 H ALT 83 H Alkaline Phosphatase 173 H Troponin I < 0.015 Total Protein 6.8 Albumin 2.9 L Globulin 3.9 Albumin/Globulin Ratio 0.7 L Cortisol Urine Color Urine Clarity Urine pH Ur Specific [place] Urine Protein Urine Glucose (UA) Urine Ketones Urine Occult Blood Urine Nitrite Urine Bilirubin Urine Urobilinogen Ur Leukocyte Esterase Urine RBC Urine WBC Ur Squamous Epith Cells Urine Bacteria Urine Mucus 05/26/18 05/26/18 05/27/18 12:15 14:05 05:45 WBC 7.8 RBC 3.71 L Hgb 10.5 L Hct 30.6 L MCV 82.5 MCH 28.3 MCHC 34.3 RDW 17.9 H RDW Differential 53.1 H Plt Count 365 MPV 8.7 Immature Gran % (Auto) Neut % (Auto) Lymph % (Auto) [place] % (Auto) Eos % (Auto) Baso % (Auto) Absolute Neuts (auto) Absolute Lymphs (auto) Total Counted Neutrophils % (Manual) Band Neutrophils % Lymphocytes % (Manual) Monocytes % (Manual) Eosinophils % (Manual) Metamyelocytes % Diff Path Review Platelet Estimate RBC Morphology Sodium Potassium Chloride Carbon Dioxide Anion Gap BUN Creatinine Estim Creat Clear Calc Est GFR (MDRD) Af Amer Est GFR (MDRD) Non-Af BUN/Creatinine Ratio Glucose Lactic Acid Calcium Phosphorus 2.8 Magnesium Total Bilirubin AST ALT Alkaline Phosphatase Troponin I Total Protein Albumin Globulin Albumin/Globulin Ratio Cortisol Urine Color Yellow Urine Clarity Sl. Cloudy Urine pH 7.0 Ur Specific [place] 1.005 Urine Protein 100 H Urine Glucose (UA) Normal Urine Ketones Negative Urine Occult Blood 150 H Urine Nitrite Negative Urine Bilirubin Negative Urine Urobilinogen Normal Ur Leukocyte Esterase 25 H Urine RBC 10-25 SEEN Urine WBC 0-5 SEEN Ur Squamous Epith Cells 0-5 SEEN Urine Bacteria 1+ Urine Mucus 0 SEEN 05/27/18 05/27/18 05/27/18 05:45 05:45 05:53 WBC RBC Hgb Hct MCV MCH MCHC RDW RDW Differential Plt Count MPV Immature Gran % (Auto) Neut % (Auto) Lymph % (Auto) [place] % (Auto) Eos % (Auto) Baso % (Auto) Absolute Neuts (auto) Absolute Lymphs (auto) Total Counted Neutrophils % (Manual) Band Neutrophils % Lymphocytes % (Manual) Monocytes % (Manual) Eosinophils % (Manual) Metamyelocytes % Diff Path Review Platelet Estimate RBC Morphology Sodium 140 Potassium 3.2 L Chloride 118 H Carbon Dioxide 12.0 L Anion Gap 10 BUN 12 Creatinine 1.20 H Estim Creat Clear Calc 43.82 Est GFR (MDRD) Af Amer 60 Est GFR (MDRD) Non-Af 50 L BUN/Creatinine Ratio 10.0 Glucose 138 H Lactic Acid Calcium 7.1 L Phosphorus 3.1 Magnesium 2.3 Total Bilirubin 0.50 AST 43 H ALT 63 H Alkaline Phosphatase 163 H Troponin I Total Protein 5.6 L Albumin 2.2 L Globulin 3.4 Albumin/Globulin Ratio 0.6 L Cortisol Urine Color Urine Clarity Urine pH Ur Specific [place] Urine Protein Urine Glucose (UA) Urine Ketones Urine Occult Blood Urine Nitrite Urine Bilirubin Urine Urobilinogen Ur Leukocyte Esterase Urine RBC Urine WBC Ur Squamous Epith Cells Urine Bacteria Urine Mucus 05/27/18 05/27/18 05/27/18 08:15 08:47 09:25 WBC RBC Hgb Hct MCV MCH MCHC RDW RDW Differential Plt Count MPV Immature Gran % (Auto) Neut % (Auto) Lymph % (Auto) [place] % (Auto) Eos % (Auto) Baso % (Auto) Absolute Neuts (auto) Absolute Lymphs (auto) Total Counted Neutrophils % (Manual) Band Neutrophils % Lymphocytes % (Manual) Monocytes % (Manual) Eosinophils % (Manual) Metamyelocytes % Diff Path Review Platelet Estimate RBC Morphology Sodium Potassium Chloride Carbon Dioxide Anion Gap BUN Creatinine Estim Creat Clear Calc Est GFR (MDRD) Af Amer Est GFR (MDRD) Non-Af BUN/Creatinine Ratio Glucose Lactic Acid Calcium Phosphorus Magnesium Total Bilirubin AST ALT Alkaline Phosphatase Troponin I Total Protein Albumin Globulin Albumin/Globulin Ratio Cortisol 5.00 10.80 16.20 Urine Color Urine Clarity Urine pH Ur Specific [place] Urine Protein Urine Glucose (UA) Urine Ketones Urine Occult Blood Urine Nitrite Urine Bilirubin Urine Urobilinogen Ur Leukocyte Esterase Urine RBC Urine WBC Ur Squamous Epith Cells Urine Bacteria Urine Mucus 05/28/18 05/28/18 04:15 04:15 WBC 5.8 RBC 3.27 L Hgb 9.3 L Hct 26.9 L MCV 82.3 MCH 28.4 MCHC 34.6 RDW 18.0 H RDW Differential 52.0 H Plt Count 332 MPV 9.3 Immature Gran % (Auto) 0.900 Neut % (Auto) 77.6 H Lymph % (Auto) 16.2 L [place] % (Auto) 5.0 Eos % (Auto) 0.0 Baso % (Auto) 0.3 Absolute Neuts (auto) 4.5 Absolute Lymphs (auto) 0.94 Total Counted Not Reportable Neutrophils % (Manual) Band Neutrophils % Lymphocytes % (Manual) Monocytes % (Manual) Eosinophils % (Manual) Metamyelocytes % Diff Path Review Platelet Estimate RBC Morphology Sodium 139 Potassium 3.5 Chloride 113 H Carbon Dioxide 12.0 L Anion Gap 14 BUN 9 Creatinine 1.03 H Estim Creat Clear Calc 51.06 Est GFR (MDRD) Af Amer 72 Est GFR (MDRD) Non-Af 59 L BUN/Creatinine Ratio 8.7 L Glucose 191 H Lactic Acid Calcium 7.4 L Phosphorus Magnesium Total Bilirubin AST ALT Alkaline Phosphatase Troponin I Total Protein Albumin Globulin Albumin/Globulin Ratio Cortisol Urine Color Urine Clarity Urine pH Ur Specific [place] Urine Protein Urine Glucose (UA) Urine Ketones Urine Occult Blood Urine Nitrite Urine Bilirubin Urine Urobilinogen Ur Leukocyte Esterase Urine RBC Urine WBC Ur Squamous Epith Cells Urine Bacteria Urine Mucus Microbiology 05/26/18 14:19 Stool Stool Lactoferrin - Final 05/26/18 14:05 Stool C. difficile DNA Amplification - Final Clinical Impression(s) from Imaging Studies Chest X-Ray 05/27/18 08:52 IMPRESSION: Normal x-ray examination of the chest. Electronically Signed: Evens Ann MD at 17:56 EDT , Service support , Medical Necessity - Tobacco Use Smoking Status: Current some day smoker Assessment/Plan All Active Problems (Last Reviewed 05/16/18 @ 20:50 by Sohan Waddell MD) Acute kidney injury (Acute) Hypokalemia (Acute) Abnormal EKG (Acute) Hyponatremia (Acute) Nausea vomiting and diarrhea (Acute) Severe dehydration (Acute) Pulmonary embolism (Acute) Periodontal disease (Acute) Nausea & vomiting (Acute) Headache (Acute) Encounter for adjustment or management of vascular access device (Acute) Small cell lung cancer (Acute) Regional lymph node metastasis present (Acute) Lung metastasis (Acute) RECOMMENDATIONS: 1. Continue supplemental IV fluid hydration, given continued ongoing GI losses. 2. Potassium supplementation as ordered. 3. Continue Imodium 4. Given positive stool lactoferrin, will check enteric pathogen assay. 5. Continue stress dose steroids. 6. Wean Levophed to maintain a mean arterial pressure at or above 65 mmHg. 7. Continue Lovenox for DVT prophylaxis 8. Modified diet per speech therapy recommendations. IMPRESSIONS: 1. Distributive versus hypovolemic shock The patient presented with hypotension, similar to her previous hospitalization. She has been volume resuscitated with IV fluids, but has remained hemodynamically unstable, requiring vasopressor initiation. Continue Levophed to maintain a mean arterial pressure at or above 65 mmHg. Continue stress dose steroids over concerns for underlying adrenal insufficiency. GI infectious workup is currently pending. We will plan to continue supplemental IV fluid hydration, given the patient's ongoing GI losses. Unclear if her gastrointestinal illness could be related to her immunotherapy that she is receiving. 2. Acute kidney injury likely secondary to prerenal azotemia Improving with volume expansion. We will continue to monitor urine output. No indication for renal replacement therapy at this time. 3. Hyponatremia/hypokalemia/non-anion gap metabolic acidosis Likely secondary to intravascular volume depletion from gastrointestinal losses. We will continue supplemental IV fluid hydration as ordered. 4. Small cell lung cancer of the right lung The patient was diagnosed with limited stage small cell lung cancer in 2014. She underwent concurrent chemoradiation wtih cisplatin/etoposide and completed prophylactic intracranial irradiation. She presented with local recurrent disease in 2016. Biopsy of LIMA on 04/17/17 was positive for small cell carcinoma. She has since progressed through 3 additional cycles of cisplatin/etoposide, topotecan and weekly paclitaxel. Began nivolumab and ipilimumab on 03/03/18 under the care of Dr. Cabral at [facility]. 5. Severe protein calorie malnutrition/debility/recurrent hypoglycemia/bipolar/minimal tobacco abuse Complicates care, management, recovery and prognosis. Continue nicotine replacement therapy. Nutrition is following. TIME: 35 minutes of critical care time, independent of procedures, was spent addressing the patient's hypovolemic versus septic shock, acute kidney injury, hyponatremia, now an anion gap metabolic acidosis, small cell lung cancer, review of all data and collaboration with the care team. ([id number]) Code Visit [id number]: [id number] Critical care first hour
--- NOTE | 2018-05-28 07:42 | PN_ITS ---
Patient Problems: Active and Suspected Problems (Last Reviewed 05/16/18 @ 20:50 by Sohan Waddell MD) Severe dehydration (Acute) Subjective: Patient was seen and examined. Remains in ICU. Levophed drip being gradually reduced. Currently at 3mcg/min. Has been having quite a lot of stools. Denies any fever or dizziness or chest pain Objective: General: Alert, Cooperative, Lethargic, pale HEENT: Atraumatic, PERRLA, EOMI, Normocephalic Neck: Supple Lungs: Clear to auscultation, Normal air movement Cardiovascular: Regular rate, Regular Rhythm, Normal S1, Normal S2, No murmurs Abdomen: Bowel Sounds Present, Soft, Tenderness over epigastric region, Non- Distended, No Hepato-splenomegaly Extremities: No edema Skin: No rashes, No breakdown Musculoskeletal: No Tenderness to Palpation of Joints or Extremities Lymphatic: No Cervical, Supraclavicular, or Inguinal Adenopathy Neurological: Cranial nerves II-XII grossly intact, Neuro grossly intact Psych/Mental Status: Normal Affect, Appropriate Vitals/I&O's: Vital Signs Temp Pulse Resp BP Pulse Ox 98.2 F 98 19 H 81/59 L 100 05/28/18 00:00 05/28/18 06:00 05/28/18 06:00 05/28/18 06:00 05/28/18 06:00 Oxygen Flow Rate (L/min) 2 Oxygen Delivery Method Room Air Weight: 52.6 kg Body Mass Index (BMI) 18.3 Intake and Output for Last 24 Hours 05/26/18 05/27/18 05/28/18 23:59 23:59 23:59 Intake Total 4050 / 4050 3924 / 3924 1903.1 / 1903.1 Output Total 1100 / 1100 3950 / 3950 1350 / 1350 Balance 2950 / 2950 -26 / -26 553.1 / 553.1 Microbiology Past 72 Hours 05/26/18 14:19 Stool Stool Lactoferrin - Final 05/26/18 14:05 Stool C. difficile DNA Amplification - Final Laboratory Results 05/27/18 05:53: Magnesium 2.3 05/27/18 08:15: Cortisol 5.00 05/27/18 08:47: Cortisol 10.80 05/27/18 09:25: Cortisol 16.20 05/28/18 04:15: WBC 5.8, RBC 3.27 L, Hgb 9.3 L, Hct 26.9 L, MCV 82.3, MCH 28.4, MCHC 34.6, RDW 18.0 H, RDW Differential 52.0 H, Plt Count 332, MPV 9.3, Immature Gran % (Auto) 0.900, Neut % (Auto) 77.6 H, Lymph % (Auto) 16.2 L, [place] % (Auto) 5.0, Eos % (Auto) 0.0, Baso % (Auto) 0.3, Absolute Neuts (auto) 4.5, Absolute Lymphs (auto) 0.94, Total Counted Not Reportable 05/28/18 04:15: Sodium 139, Potassium 3.5, Chloride 113 H, Carbon Dioxide 12.0 L , Anion Gap 14, BUN 9, Creatinine 1.03 H, Estim Creat Clear Calc 51.06, Est GFR (MDRD) Af Amer 72, Est GFR (MDRD) Non-Af 59 L, BUN/Creatinine Ratio 8.7 L, Glucose 191 H, Calcium 7.4 L Current Medications Acetaminophen (Tylenol) 650 mg PO Q6H PRN PRN PRN Reason: Fever >101 Last Admin: 05/27/18 05:34 Dose: 650 mg Calamine/Phenol (Calmoseptine Ointment) 1 applic TOPICAL 4X/DAY [facility]; Protocol Last Admin: 05/27/18 21:03 Dose: 1 applicatio Diazepam (Valium) 10 mg PO BID PRN PRN PRN Reason: ANXIETY Enoxaparin Sodium (Lovenox) 40 mg SC DAILY@1000 [place] Last Admin: 05/27/18 10:23 Dose: 40 mg Heparin Sodium (Beef Lung) () 50 units IV UD PRN PRN Reason: HEPARIN FLUSH Hydrocortisone Sodium Succinate (Solu-Cortef) 50 mg IV Q6 [place] Last Admin: 05/28/18 05:34 Dose: 50 mg Norepinephrine Bitartrate 8 mg (/ Dextrose) 258 mls @ 9.68 mls/hr IV .[id number] [facility]; Protocol Last Admin: 05/27/18 22:55 Dose: Not Given Potassium Chloride 40 meq/ (Dextrose/Sodium Chloride) 1,020 mls @ 150 mls/hr IV .[id number] [facility] Last Admin: 05/28/18 05:42 Dose: Not Given Potassium Chloride 40 meq/ (Sodium Chloride) 120 mls @ 100 mls/hr IV BOLUS X1 ONE Stop: 05/28/18 08:51 Loperamide HCl (Imodium) 2 mg PO Q4H PRN PRN PRN Reason: Diarrhea Last Admin: 05/28/18 02:53 Dose: 2 mg Magnesium Hydroxide (Milk Of Magnesia) 30 ml PO DAILY PRN PRN PRN Reason: Constipation Mirtazapine (Remeron) 30 mg PO HS [facility] Last Admin: 05/27/18 21:02 Dose: 30 mg Nicotine (Nicoderm Cq (Pbkc)) 21 mg TRANSDERM. DAILY [facility] Last Admin: 05/27/18 10:23 Dose: 21 mg Nutritional Formula (Lactose Free) (Ensure Enlive) 120 ml PO 4X/DAY [facility] Last Admin: 05/27/18 21:01 Dose: Not Given Ondansetron HCl (Zofran) 8 mg IV Q8 [facility] Last Admin: 05/28/18 05:34 Dose: 8 mg Oxycodone HCl (Oxyir) 5 mg PO Q6H PRN PRN PRN Reason: PAIN Prochlorperazine Edisylate (Compazine Iv) 10 mg IV Q6 [facility] Last Admin: 05/28/18 05:34 Dose: 10 mg Sodium Chloride () 5 - 30 ml IV UD PRN PRN Reason: SALINE FLUSH Last Admin: 05/27/18 11:37 Dose: 30 ml Sodium Chloride () 10 ml IV UD PRN PRN Reason: VAD FLUSH Last Admin: 05/28/18 05:34 Dose: 10 ml Medical Necessity - Tobacco Use Smoking Status: Current some day smoker Assessment/Plan All Active Problems (Last Reviewed 05/16/18 @ 20:50 by Sohan Waddell MD) Acute kidney injury (Acute) Hypokalemia (Acute) Abnormal EKG (Acute) Hyponatremia (Acute) Nausea vomiting and diarrhea (Acute) Severe dehydration (Acute) Pulmonary embolism (Acute) Periodontal disease (Acute) Nausea & vomiting (Acute) Headache (Acute) Encounter for adjustment or management of vascular access device (Acute) Small cell lung cancer (Acute) Regional lymph node metastasis present (Acute) Lung metastasis (Acute) 52-year-old female with past medical history of small cell lung cancer status on immunotherapy, COPD, chronic smoker who was admitted with hypotension has since been managed in the ICU. 1. Hypovolemic shock due to dehydration, persistent, remains on IV fluids, levophed, will continue to wean off inotropic support for MAP>65 We will also give intermittent IV fluid boluses. 2. Intractable nausea, vomiting, resolved, 3. Diarrhea, persistent, likely secondary to colitis, likely possible of Opdivo side effect, stool lactoferrin positive, stool for enteric panel pending, will continue to follow-up on results of enteric panel. 4. Hypokalemia, resolved, will continue on IVF with potassium supplementation. 5. Acute kidney injury secondary to dehydration, resolving 6. Hyponatremia, acute, hypovolemic, resolved, will continue to monitor 7. Non-anion gap metabolic acidosis secondary to acute diarrhea, HCO3 persistent at 12, will continue to monitor 8. COPD, not in acute exacerbation, stable, on room air 9. History of small cell lung cancer, on immunotherapy 10. DVT prophylaxis with Lovenox subcu Code Visit Inpatient E&M: 21488 Subs Hosp L2
[2018-05-28 08:53] LABS: Magnesium 1.8 mg/dL (1.6-2.6)
[2018-05-28] MEDS: Enoxaparin 40 MG/0.4 ML Syringe SC (10:15)
[2018-05-28] MEDS: Menthol/Lanolin/Calamine/Znox 113 GM Tube 1 APPLIC TOPICAL ×4 (10:16→22:15)
--- NOTE | 2018-05-28 15:43 | PCM.OP.BLANK ---
Problem List (1) Cardiac arrest Status: Acute Operative Report Date of Procedure: 05/28/18 Intraosseous line during NAYELI OCHOA and then right central venous catheter insertion. Initially, NAYELI OCHOA was called for cardiopulmonary arrest. Right medial tibial plateau was sterilized. Intraosseous needle was inserted with the help of motorized intraosseous gun. Normal saline IV bolus was started. Right central venous catheter insertion. Right and left side of neck both was sterilized and draped with aseptic technique. With ultrasound, right jugular vein was visualized but it seemed smaller than normal size and thought probably because of hypovolemia. In Trendelenburg position, right jugular vein was accessed and thick dark blood was aspirated. The guidewire was advanced but soon felt to be resistance and guidewire was removed. Left-sided jugular vein was visualized with ultrasound and seemed right IJ is almost half of left-sided IJ. It seems most probably patient has a right IJ venous thromboembolism. Then right subclavian vein was accessed with Seldinger technique without difficulty and venous blood flow confirmed. The guidewire was advanced without difficulty and resistance. Triple-lumen catheter was passed under guidewire without difficulty. Triple-lumen catheter was secured. This was relayed and discussed to Dr. Barriga. Pencil further discussed with the instructor of education Dr. Cano. Chest x-ray was done and right subclavian CVC was confirmed in good position at of vena cava junction. No pneumothorax. Furthermore, care as per Dr. Barriga. ultrasound service was tried for venous Doppler of jugular veins but they are not available afternoon. Detail and further care and management as per Attending, Dr. Barriga. Code Visit Procedures: [id number] Insert Non-tunnel CV Cath
--- NOTE | 2018-05-28 15:57 | OP.PCM_ITS ---
Problem List (1) Cardiac arrest Status: Acute Operative Report Date of Procedure: 05/28/18 Intraosseous line during NAYELI OCHOA and then right central venous catheter insertion. Initially, NAYEIL OCHOA was called for cardiopulmonary arrest. Right medial tibial plateau was sterilized. Intraosseous needle was inserted with the help of motorized intraosseous gun. Normal saline IV bolus was started. Right central venous catheter insertion. Right and left side of neck both was sterilized and draped with aseptic technique. With ultrasound, right jugular vein was visualized but it seemed smaller than normal size and thought probably because of hypovolemia. In Trendelenburg position, right jugular vein was accessed and thick dark blood was aspirated. The guidewire was advanced but soon felt to be resistance and guidewire was removed. Left-sided jugular vein was visualized with ultrasound and seemed right IJ is almost half of left-sided IJ. It seems most probably patient has a right IJ venous thromboembolism. Then right subclavian vein was accessed with Seldinger technique without difficulty and venous blood flow confirmed. The guidewire was advanced without difficulty and resistance. Triple-lumen catheter was passed under guidewire without difficulty. Triple-lumen catheter was secured. This was relayed and discussed to Dr. Barriga. Pencil further discussed with the perishable fruit inspector Dr. Cano. Chest x-ray was done and right subclavian CVC was confirmed in good position at of vena cava junction. No pneumothorax. Furthermore, care as per Dr. Barriga. ultrasound service was tried for venous Doppler of jugular veins but they are not available afternoon. Detail and further care and management as per Attending, Dr. Barriga. Code Visit Procedures: [id number] Insert Non-tunnel CV Cath
[2018-05-28] MEDS: Mirtazapine 30 MG Tablet PO (22:15)
[2018-05-29] VITALS (19 sets, daily range): BP systolic 81–126; BP diastolic 51–86; PULSE 93–109; RESP 18–25; TEMP 36.2–37.1; O2SAT 96–100
[2018-05-29] MEDS: Hydrocortisone Sod Succinate 100 MG/2 ML Vial 50 MG IV ×3 (05:06→22:44)
[2018-05-29] MEDS: proCHLORPERazine 10 MG/2 ML Vial IV (05:07)
[2018-05-29] MEDS: Ondansetron 4 MG/2 ML Vial 8 MG IV (05:07)
[2018-05-29 05:11] LABS: Absolute Lymphocyte Count 1.04 X10^3/ul (0.83-4.51); Absolute Neutrophil Count 5.1 X10^3/uL (2.0-7.7); Basophil# 0.01 X10^3/uL; Basophil% 0.1 % (0-1); Hematocrit 23.5 % (37-47); Lymphocyte # 1.04 X10^3/ul (4.0); Lymphocyte % 15.6 % (19-41); Mean Corpuscular Volume 82.2 fL (81-99); Mean Platelet Vol. 9.2 fl (6.2-12.0); Monocyte# 0.46 X10^3/uL; Monocyte% 6.9 % (0-10); Neutrophil # 5.08 X10^3/uL (2.7-7.7); Neutrophil % 76.2 % (47-70); Platelet Count 343 K/mm3 (150-450); RBC Distribution Width CV 17.6 % (11.6-14.6); RBC Distribution Width SD 50.3 fl (35.1-43.9); Red Blood Count 2.86 M/mm3 (4.2-5.4); White Blood Count 6.7 K/mm3 (4.4-11.0)
[2018-05-29 05:26] LABS: POSITIVE COUNT NO; POSITIVE DIFFERENTIAL NO; POSITIVE MORPHOLOGY NO
[2018-05-29 05:30] LABS: BUN 7 mg/dL (7-18); BUN/Creat Ratio 6.9 RATIO (10-20); Calcium,Total 7.9 mg/dL (8.5-10.1); Chloride 116 mmol/L (98-107); Creatinine, Serum 1.01 mg/dL (0.55-1.02); EST Glomerular Filtration Rate 61 mL/min (>60); Est Glom Filt Rate - Afr Amer 74 mL/min (>60); Estimated Creatinine Clearance 53.49 ml/min; Glucose 132 mg/dL (74-106); Phosphorus 2.9 mg/dL (2.5-4.9); Potassium 3.6 mmol/L (3.5-5.1); Sodium Level 140 mmol/L (136-145)
[2018-05-29] MEDS: Potassium Chloride 40 MEQ in Dext 5%-0.45% NS 1,000 ML 150 MEQ IV (06:28)
--- NOTE | 2018-05-29 06:51 | PCM.PN.INT ---
Subjective: Patient did well overnight. No acute issues were reported. Patient was able to come off of pressor therapy at approximately 11 PM. Patient denies any pain issues. Patient states nausea is much improved compared to previous. Patient still having significant diarrhea. General: Alert, Oriented x3, Cooperative, No apparent distress, - - Cachectic. Speaking in full sentences. Appears older than stated age. HEENT: Atraumatic, PERRLA, EOMI, Normocephalic, - - No scleral icterus or injection noted. Oral: Moist Mucosa, No Gingival or Mucosal Lesions/ Ulcerations Neck: Supple, No JVD, No Nodes, Trachea Midline Lungs: Clear to auscultation, Normal air movement, No rhonchi, No wheeze, No rales Cardiovascular: Regular rate, Regular Rhythm, Normal S1, Normal S2, No murmurs, No rub noted, No Gallop Abdomen: Bowel Sounds Present, Soft, Non Tender, Non-Distended Extremities: No cyanosis, No edema, Capillary Refill Less than 3 Seconds, Clubbing Skin: No rashes, No breakdown Musculoskeletal: No Tenderness to Palpation of Joints or Extremities Lymphatic: No Cervical, Supraclavicular, or Inguinal Adenopathy Neurological: Cranial nerves II-XII grossly intact, Neuro grossly intact, Motor Exam 5/5 strength throughout Psych/Mental Status: Alert and oriented to time, place, person, mood and affect Vital Signs Temp Pulse Resp BP Pulse Ox 36.5 C L 104 H 21 H 113/79 100 05/29/18 04:00 05/29/18 06:00 05/29/18 06:00 05/29/18 06:00 05/29/18 06:00 Oxygen Flow Rate (L/min) 2 Oxygen Delivery Method Room Air Weight: 52.5 kg Body Mass Index (BMI) 18.3 Intake and Output for Last 24 Hours 05/27/18 05/28/18 05/29/18 23:59 23:59 23:59 Intake Total 3924 / 3924 4213.1 / 4213.1 1721 / 1721 Output Total 3950 / 3950 1950 / 1950 875 / 875 Balance -26 / -26 2263.1 / 2263.1 846 / 846 Labs (Last 48 Hours) 05/27/18 05/27/18 05/27/18 05:53 08:15 08:47 WBC RBC Hgb Hct MCV MCH MCHC RDW RDW Differential Plt Count MPV Immature Gran % (Auto) Neut % (Auto) Lymph % (Auto) [place] % (Auto) Eos % (Auto) Baso % (Auto) Absolute Neuts (auto) Absolute Lymphs (auto) Total Counted Sodium Potassium Chloride Carbon Dioxide Anion Gap BUN Creatinine Estim Creat Clear Calc Est GFR (MDRD) Af Amer Est GFR (MDRD) Non-Af BUN/Creatinine Ratio Glucose Calcium Phosphorus Magnesium 2.3 Albumin Cortisol 5.00 10.80 05/27/18 05/28/18 05/28/18 09:25 04:15 04:15 WBC 5.8 RBC 3.27 L Hgb 9.3 L Hct 26.9 L MCV 82.3 MCH 28.4 MCHC 34.6 RDW 18.0 H RDW Differential 52.0 H Plt Count 332 MPV 9.3 Immature Gran % (Auto) 0.900 Neut % (Auto) 77.6 H Lymph % (Auto) 16.2 L [place] % (Auto) 5.0 Eos % (Auto) 0.0 Baso % (Auto) 0.3 Absolute Neuts (auto) 4.5 Absolute Lymphs (auto) 0.94 Total Counted Not Reportable Sodium 139 Potassium 3.5 Chloride 113 H Carbon Dioxide 12.0 L Anion Gap 14 BUN 9 Creatinine 1.03 H Estim Creat Clear Calc 51.06 Est GFR (MDRD) Af Amer 72 Est GFR (MDRD) Non-Af 59 L BUN/Creatinine Ratio 8.7 L Glucose 191 H Calcium 7.4 L Phosphorus Magnesium Albumin Cortisol 16.20 05/28/18 05/29/18 05/29/18 04:15 04:50 04:50 WBC 6.7 RBC 2.86 L Hgb 8.0 L Hct 23.5 L MCV 82.2 MCH 28.0 MCHC 34.0 RDW 17.6 H RDW Differential 50.3 H Plt Count 343 MPV 9.2 Immature Gran % (Auto) 1.200 H Neut % (Auto) 76.2 H Lymph % (Auto) 15.6 L [place] % (Auto) 6.9 Eos % (Auto) 0.0 Baso % (Auto) 0.1 Absolute Neuts (auto) 5.1 Absolute Lymphs (auto) 1.04 Total Counted Not Reportable Sodium 140 Potassium 3.6 Chloride 116 H Carbon Dioxide 13.0 L Anion Gap BUN 7 Creatinine 1.01 Estim Creat Clear Calc 53.49 Est GFR (MDRD) Af Amer 74 Est GFR (MDRD) Non-Af 61 BUN/Creatinine Ratio 6.9 L Glucose 132 H Calcium 7.9 L Phosphorus 2.9 Magnesium 1.8 Albumin 2.0 L Cortisol Microbiology 05/28/18 11:00 Stool Enteric Bacteriology - Final 05/27/18 10:35 Urine Catheter - Mcdermott Urine Culture - Preliminary Gram negative norma Gram negative norma#2 05/26/18 14:19 Stool Stool Lactoferrin - Final Medical Necessity - Tobacco Use Smoking Status: Current some day smoker Assessment/Plan All Active Problems (Last Reviewed 05/16/18 @ 20:50 by Sohan Waddell MD) Acute kidney injury (Acute) Hypokalemia (Acute) Abnormal EKG (Acute) Hyponatremia (Acute) Nausea vomiting and diarrhea (Acute) Severe dehydration (Acute) Cardiac arrest (Acute) Pulmonary embolism (Acute) Periodontal disease (Acute) Nausea & vomiting (Acute) Headache (Acute) Encounter for adjustment or management of vascular access device (Acute) Small cell lung cancer (Acute) Regional lymph node metastasis present (Acute) Lung metastasis (Acute) RECOMMENDATIONS: 1. Decrease stress dose steroids 2. Position antinausea medications to as needed 3. Continue Imodium 4. Initiate p.o. bicarbonate 5. Discontinue Levophed therapy 6. Okay to go out of the intensive care unit from my perspective IMPRESSIONS: 1. Relative adrenal insufficiency with hypovolemic shock Patient has responded well to IV fluids. However, patient's pressor requirements improved rapidly after administration of stress dose steroids. Will decrease stress dose steroids, but patient will need to be on a slow taper. Patient would benefit from outpatient evaluation by endocrinology. We will keep steroids IV given patient's continued diarrhea with questionable absorption. Add bicarbonate by mouth to compensate for GI losses. Stool O&P is still pending. 2. Acute kidney injury likely secondary to prerenal azotemia Improving with volume expansion. We will continue to monitor urine output. No indication for renal replacement therapy at this time. 3. Hyponatremia/hypokalemia/non-anion gap metabolic acidosis Likely secondary to intravascular volume depletion from gastrointestinal losses. Likely okay to transition to p.o. replacement in the next 24-48 hours 4. Small cell lung cancer of the right lung The patient was diagnosed with limited stage small cell lung cancer in 2014. She underwent concurrent chemoradiation wtih cisplatin/etoposide and completed prophylactic intracranial irradiation. She presented with local recurrent disease in 2016. Biopsy of LIMA on 04/17/17 was positive for small cell carcinoma. She has since progressed through 3 additional cycles of cisplatin/etoposide, topotecan and weekly paclitaxel. Began nivolumab and ipilimumab on 03/03/18 under the care of Dr. Cabral at [facility]. 5. Severe protein calorie malnutrition/debility/recurrent hypoglycemia/bipolar/minimal tobacco abuse Complicates care, management, recovery and prognosis. Continue nicotine replacement therapy. Nutrition is following. Code Visit Inpatient E&M: 81918 Subs Hosp L3
--- NOTE | 2018-05-29 09:19 | PCM.PN.HOSP ---
Patient Problems: Active and Suspected Problems (Last Reviewed 05/16/18 @ 20:50 by Sohan Waddell MD) Severe dehydration (Acute) Cardiac arrest (Acute) Subjective: Patient seen and examined. Feeling slightly better. Has had 2 very liquid bowel movements since yesterday. Denies fever or chills or SOB. On IVF going at 150cc/hr. Objective: Physical exam: General: Alert, Cooperative,pale, cachetic HEENT: Atraumatic, PERRLA, EOMI, Normocephalic Neck: Supple Lungs: Clear to auscultation, Normal air movement Cardiovascular: Regular rate, Regular Rhythm, Normal S1, Normal S2, No murmurs Abdomen: Bowel Sounds Present, Soft, Tenderness over epigastric region, Non-Distended, No Hepato-splenomegaly Extremities: No edema Skin: No rashes, No breakdown Musculoskeletal: No Tenderness to Palpation of Joints or Extremities Lymphatic: No Cervical, Supraclavicular, or Inguinal Adenopathy Neurological: Cranial nerves II-XII grossly intact, Neuro grossly intact Psych/Mental Status: Normal Affect, Appropriate Vitals/I&O's: Vital Signs Temp Pulse Resp BP Pulse Ox 98.1 F 109 H 24 H 122/85 H 100 05/29/18 07:00 05/29/18 08:00 05/29/18 08:00 05/29/18 08:00 05/29/18 08:00 Oxygen Flow Rate (L/min) 2 Oxygen Delivery Method Room Air Weight: 52.5 kg Body Mass Index (BMI) 18.3 Intake and Output for Last 24 Hours 05/27/18 05/28/18 05/29/18 23:59 23:59 23:59 Intake Total 3924 / 3924 4213.1 / 4213.1 1721 / 1721 Output Total 3950 / 3950 1950 / 1950 875 / 875 Balance -26 / -26 2263.1 / 2263.1 846 / 846 Microbiology Past 72 Hours 05/28/18 11:00 Stool Enteric Bacteriology - Final 05/27/18 10:35 Urine Catheter - Mcdermott Urine Culture - Preliminary Gram negative norma Gram negative norma#2 05/26/18 14:19 Stool Stool Lactoferrin - Final 05/26/18 14:05 Stool C. difficile DNA Amplification - Final Laboratory Results 05/29/18 04:50: WBC 6.7, RBC 2.86 L, Hgb 8.0 L, Hct 23.5 L, MCV 82.2, MCH 28.0, MCHC 34.0, RDW 17.6 H, RDW Differential 50.3 H, Plt Count 343, MPV 9.2, Immature Gran % (Auto) 1.200 H, Neut % (Auto) 76.2 H, Lymph % (Auto) 15.6 L, [place] % (Auto) 6.9, Eos % (Auto) 0.0, Baso % (Auto) 0.1, Absolute Neuts (auto) 5.1, Absolute Lymphs (auto) 1.04, Total Counted Not Reportable 05/29/18 04:50: Sodium 140, Potassium 3.6, Chloride 116 H, Carbon Dioxide 13.0 L, BUN 7, Creatinine 1.01, Estim Creat Clear Calc 53.49, Est GFR (MDRD) Af Amer 74, Est GFR (MDRD) Non-Af 61, BUN/Creatinine Ratio 6.9 L, Glucose 132 H, Calcium 7.9 L, Phosphorus 2.9, Albumin 2.0 L Current Medications Acetaminophen (Tylenol) 650 mg PO Q6H PRN PRN PRN Reason: Fever >101 Last Admin: 05/27/18 05:34 Dose: 650 mg Calamine/Phenol (Calmoseptine Ointment) 1 applic TOPICAL 4X/DAY [facility]; Protocol Last Admin: 05/28/18 22:15 Dose: 1 applicatio Diazepam (Valium) 10 mg PO BID PRN PRN PRN Reason: ANXIETY Enoxaparin Sodium (Lovenox) 40 mg SC DAILY@1000 [place] Last Admin: 05/28/18 10:15 Dose: 40 mg Heparin Sodium (Beef Lung) () 50 units IV UD PRN PRN Reason: HEPARIN FLUSH Hydrocortisone Sodium Succinate (Solu-Cortef) 50 mg IV Q8 [place] Potassium Chloride 40 meq/ (Dextrose/Sodium Chloride) 1,020 mls @ 150 mls/hr IV .Q6H48M [facility] Last Admin: 05/29/18 06:28 Dose: 150 mls/hr Loperamide HCl (Imodium) 2 mg PO Q4H PRN PRN PRN Reason: Diarrhea Last Admin: 05/28/18 02:53 Dose: 2 mg Magnesium Hydroxide (Milk Of Magnesia) 30 ml PO DAILY PRN PRN PRN Reason: Constipation Mirtazapine (Remeron) 30 mg PO HS [facility] Last Admin: 05/28/18 22:15 Dose: 30 mg Nicotine (Nicoderm Cq (Pbkc)) 21 mg TRANSDERM. DAILY [facility] Last Admin: 05/28/18 10:17 Dose: 21 mg Ondansetron HCl (Zofran) 8 mg IV Q8H PRN PRN PRN Reason: NAUSEA/VOMITING Oxycodone HCl (Oxyir) 5 mg PO Q6H PRN PRN PRN Reason: PAIN Sodium Bicarbonate (Sodium Bicarbonate) 650 mg PO 4X/DAY [facility] Stop: 05/29/18 22:01 Sodium Chloride () 5 - 30 ml IV UD PRN PRN Reason: SALINE FLUSH Last Admin: 05/27/18 11:37 Dose: 30 ml Sodium Chloride () 10 ml IV UD PRN PRN Reason: VAD FLUSH Last Admin: 05/28/18 05:34 Dose: 10 ml Medical Necessity - Tobacco Use Smoking Status: Current some day smoker Assessment/Plan All Active Problems (Last Reviewed 05/16/18 @ 20:50 by Sohan Waddell MD) Acute kidney injury (Acute) Hypokalemia (Acute) Abnormal EKG (Acute) Hyponatremia (Acute) Nausea vomiting and diarrhea (Acute) Severe dehydration (Acute) Cardiac arrest (Acute) Pulmonary embolism (Acute) Periodontal disease (Acute) Nausea & vomiting (Acute) Headache (Acute) Encounter for adjustment or management of vascular access device (Acute) Small cell lung cancer (Acute) Regional lymph node metastasis present (Acute) Lung metastasis (Acute) 52-year-old female with past medical history of small cell lung cancer status on immunotherapy, COPD, chronic smoker who was admitted with hypotension and has since been managed in the ICU. 1. Hypovolemic shock due to dehydration, possible adrenal insufficiency, resolved, off pressors, remains on IV fluids, will continue on IV fluids 2. Intractable nausea, vomiting, resolved, 3. Diarrhea, persistent, likely secondary to colitis, likely possible of Opdivo side effect, stool lactoferrin positive, stool for enteric panel negative, started on Imodium prn, will continue to monitor. 4. Hypokalemia, resolved, will continue on IVF with potassium supplementation, labs in am. 5. Acute kidney injury secondary to dehydration, resolving 6. Hyponatremia, acute, hypovolemic, resolved, will continue to monitor 7. Non-anion gap metabolic acidosis secondary to acute diarrhea, started on sodium bicarbonate, labs in am. 8. COPD, not in acute exacerbation, stable, on room air 9. History of small cell lung cancer, on immunotherapy 10. DVT prophylaxis with Lovenox subcu 11. Disposition: Will wait for PT/OT evaluations to assist in discharge planning. Code Visit Inpatient E&M: 23374 Subs Hosp L2
--- NOTE | 2018-05-29 09:24 | PN_ITS ---
Patient Problems: Active and Suspected Problems (Last Reviewed 05/16/18 @ 20:50 by Sohan Waddell MD) Severe dehydration (Acute) Cardiac arrest (Acute) Subjective: Patient seen and examined. Feeling slightly better. Has had 2 very liquid bowel movements since yesterday. Denies fever or chills or SOB. On IVF going at 150cc/hr. Objective: Physical exam: General: Alert, Cooperative,pale, cachetic HEENT: Atraumatic, PERRLA, EOMI, Normocephalic Neck: Supple Lungs: Clear to auscultation, Normal air movement Cardiovascular: Regular rate, Regular Rhythm, Normal S1, Normal S2, No murmurs Abdomen: Bowel Sounds Present, Soft, Tenderness over epigastric region, Non- Distended, No Hepato-splenomegaly Extremities: No edema Skin: No rashes, No breakdown Musculoskeletal: No Tenderness to Palpation of Joints or Extremities Lymphatic: No Cervical, Supraclavicular, or Inguinal Adenopathy Neurological: Cranial nerves II-XII grossly intact, Neuro grossly intact Psych/Mental Status: Normal Affect, Appropriate Vitals/I&O's: Vital Signs Temp Pulse Resp BP Pulse Ox 98.1 F 109 H 24 H 122/85 H 100 05/29/18 07:00 05/29/18 08:00 05/29/18 08:00 05/29/18 08:00 05/29/18 08:00 Oxygen Flow Rate (L/min) 2 Oxygen Delivery Method Room Air Weight: 52.5 kg Body Mass Index (BMI) 18.3 Intake and Output for Last 24 Hours 05/27/18 05/28/18 05/29/18 23:59 23:59 23:59 Intake Total 3924 / 3924 4213.1 / 4213.1 1721 / 1721 Output Total 3950 / 3950 1950 / 1950 875 / 875 Balance -26 / -26 2263.1 / 2263.1 846 / 846 Microbiology Past 72 Hours 05/28/18 11:00 Stool Enteric Bacteriology - Final 05/27/18 10:35 Urine Catheter - Mcdermott Urine Culture - Preliminary Gram negative norma Gram negative norma#2 05/26/18 14:19 Stool Stool Lactoferrin - Final 05/26/18 14:05 Stool C. difficile DNA Amplification - Final Laboratory Results 05/29/18 04:50: WBC 6.7, RBC 2.86 L, Hgb 8.0 L, Hct 23.5 L, MCV 82.2, MCH 28.0, MCHC 34.0, RDW 17.6 H, RDW Differential 50.3 H, Plt Count 343, MPV 9.2, Immature Gran % (Auto) 1.200 H, Neut % (Auto) 76.2 H, Lymph % (Auto) 15.6 L, Andrew % (Auto) 6.9, Eos % (Auto) 0.0, Baso % (Auto) 0.1, Absolute Neuts (auto) 5.1, Absolute Lymphs (auto) 1.04, Total Counted Not Reportable 05/29/18 04:50: Sodium 140, Potassium 3.6, Chloride 116 H, Carbon Dioxide 13.0 L , BUN 7, Creatinine 1.01, Estim Creat Clear Calc 53.49, Est GFR (MDRD) Af Amer 74, Est GFR (MDRD) Non-Af 61, BUN/Creatinine Ratio 6.9 L, Glucose 132 H, Calcium 7.9 L, Phosphorus 2.9, Albumin 2.0 L Current Medications Acetaminophen (Tylenol) 650 mg PO Q6H PRN PRN PRN Reason: Fever >101 Last Admin: 05/27/18 05:34 Dose: 650 mg Calamine/Phenol (Calmoseptine Ointment) 1 applic TOPICAL 4X/DAY [facility]; Protocol Last Admin: 05/28/18 22:15 Dose: 1 applicatio Diazepam (Valium) 10 mg PO BID PRN PRN PRN Reason: ANXIETY Enoxaparin Sodium (Lovenox) 40 mg SC DAILY@1000 LUCRECIA Last Admin: 05/28/18 10:15 Dose: 40 mg Heparin Sodium (Beef Lung) () 50 units IV UD PRN PRN Reason: HEPARIN FLUSH Hydrocortisone Sodium Succinate (Solu-Cortef) 50 mg IV Q8 LUCRECIA Potassium Chloride 40 meq/ (Dextrose/Sodium Chloride) 1,020 mls @ 150 mls/hr IV .[id number] LUCRECIA Last Admin: 05/29/18 06:28 Dose: 150 mls/hr Loperamide HCl (Imodium) 2 mg PO Q4H PRN PRN PRN Reason: Diarrhea Last Admin: 05/28/18 02:53 Dose: 2 mg Magnesium Hydroxide (Milk Of Magnesia) 30 ml PO DAILY PRN PRN PRN Reason: Constipation Mirtazapine (Remeron) 30 mg PO HS [facility] Last Admin: 05/28/18 22:15 Dose: 30 mg Nicotine (Nicoderm Cq (Pbkc)) 21 mg TRANSDERM. DAILY LUCRECIA Last Admin: 05/28/18 10:17 Dose: 21 mg Ondansetron HCl (Zofran) 8 mg IV Q8H PRN PRN PRN Reason: NAUSEA/VOMITING Oxycodone HCl (Oxyir) 5 mg PO Q6H PRN PRN PRN Reason: PAIN Sodium Bicarbonate (Sodium Bicarbonate) 650 mg PO 4X/DAY [facility] Stop: 05/29/18 22:01 Sodium Chloride () 5 - 30 ml IV UD PRN PRN Reason: SALINE FLUSH Last Admin: 05/27/18 11:37 Dose: 30 ml Sodium Chloride () 10 ml IV UD PRN PRN Reason: VAD FLUSH Last Admin: 05/28/18 05:34 Dose: 10 ml Medical Necessity - Tobacco Use Smoking Status: Current some day smoker Assessment/Plan All Active Problems (Last Reviewed 05/16/18 @ 20:50 by Sohan Waddell MD) Acute kidney injury (Acute) Hypokalemia (Acute) Abnormal EKG (Acute) Hyponatremia (Acute) Nausea vomiting and diarrhea (Acute) Severe dehydration (Acute) Cardiac arrest (Acute) Pulmonary embolism (Acute) Periodontal disease (Acute) Nausea & vomiting (Acute) Headache (Acute) Encounter for adjustment or management of vascular access device (Acute) Small cell lung cancer (Acute) Regional lymph node metastasis present (Acute) Lung metastasis (Acute) 52-year-old female with past medical history of small cell lung cancer status on immunotherapy, COPD, chronic smoker who was admitted with hypotension and has since been managed in the ICU. 1. Hypovolemic shock due to dehydration, possible adrenal insufficiency, resolved, off pressors, remains on IV fluids, will continue on IV fluids 2. Intractable nausea, vomiting, resolved, 3. Diarrhea, persistent, likely secondary to colitis, likely possible of Opdivo side effect, stool lactoferrin positive, stool for enteric panel negative, started on Imodium prn, will continue to monitor. 4. Hypokalemia, resolved, will continue on IVF with potassium supplementation, labs in am. 5. Acute kidney injury secondary to dehydration, resolving 6. Hyponatremia, acute, hypovolemic, resolved, will continue to monitor 7. Non-anion gap metabolic acidosis secondary to acute diarrhea, started on sodium bicarbonate, labs in am. 8. COPD, not in acute exacerbation, stable, on room air 9. History of small cell lung cancer, on immunotherapy 10. DVT prophylaxis with Lovenox subcu 11. Disposition: Will wait for PT/OT evaluations to assist in discharge planning. Code Visit Inpatient E&M: 51989 Subs Hosp L2
--- NOTE | 2018-05-29 09:30 | CASEMGMT ---
RN MARTA NOTE: RN CM in to talk with pt. Pt resting quietly in bed, awake/alert/oriented, and agreeable to talking w/ JENNIFER LOZANO. *Pt reports she thinks she may have an appt @ [facility] oncology for today or next week, stating she is unsure of when the appt was. Call placed to [facility] @ [phone]. -They confirmed pt has an appts scheduled on TuesdayMay 24- as follows: -0800: To arrive @ [facility] for CT scans. -1100: Labs to be drawn -1120: To be seen by MD. -1300: Treatment. *Dr Mckeon requesting for appt to be made with an Linen Grader, preferably while pt is @ [facility]. Phone number @ endocrinology department is [phone]. Appt has not been scheduled yet, as it is undetermined if pt will be receiving treatment @ oncology on May 24 yet. *Pt reports she was set up with [facility] but voiced she was not pleased with the man that called her from their agency and how he spoke to her and states she does not want him working with her and stated if she could be seen by someone else within their agency, that she would be agreeable to [facility]. Call placed to [facility] and they stated that since they had not started care yet, that she is no longer current with them and they would need another referral. Сергей TAM RN CM
[2018-05-29] MEDS: Sodium Bicarbonate 650 MG Tablet PO ×4 (09:45→22:43)
[2018-05-29] MEDS: Enoxaparin 40 MG/0.4 ML Syringe SC (09:45)
[2018-05-29] MEDS: Menthol/Lanolin/Calamine/Znox 113 GM Tube 1 APPLIC TOPICAL ×4 (09:46→22:41)
--- NOTE | 2018-05-29 13:32 | CASEMGMT ---
SW was told patient is in agreement with going to SNF at d/c. SW spoke with patient, introduced self and role at [facility]. Patient was in agreement with going to [facility]. She said her friend that normally transports her to [place] for appts can still take her. SW told her SW will work on referral and that SW will have to find out about her treatment as this may effect whether or not a facility can accept her or not. SW called [facility] with referral and faxed over information as well. SW told her that SW will call her as soon as SW finds out about treatment. JENNIFER Chance is awaiting a return call from Paint Spray Inspector at [facility] to let her know if they will continue with treatment or not. Josy RODRIGUEZ IMAGING MANAGER
[2018-05-29 14:12] LABS: Pathologist Review Reviewed
--- NOTE | 2018-05-29 14:26 | CASEMGMT ---
Addendum entered by Josy Feliz 05/29/18 14:39: SW printed a SNF list from [facility] website and gave it to patient. SW will check back with patient tomorrow to see which facility she will consider. Josy WOODWARD Original Note: SW received a call from [facility] and they are not able to accept patient. SW will talk with patient to see what other facility she would be willing to go to. Josy RODRIGUEZ MSW
--- NOTE | 2018-05-29 14:49 | CASEMGMT ---
JENNIFER LOZANO NOTE: Call placed to [facility] @ [phone] to make an appt. Pt has an appt @ Dr Cabral's office on Tuesday06-02-18 @ [facility] and was going to try and get an appt for pt on the same day. Endocrinology office states they do not have any appts available 06-02-18. Also, this RN MARTA was informed that a referral is required prior to making appt. *Referral form can be found @ [facility] under referrals. *Referral to be faxed to [phone]. Pt has been transferred to [facility]. The above information given to JENNIFER Cain CM, and is aware pt needs an appt made. Сергей TAM RN RM
[2018-05-29] MEDS: Potassium Chloride 40 MEQ in Dext 5%-0.45% NS 1,000 ML 75 MEQ IV (15:52)
[2018-05-29] MEDS: Loperamide 2 MG Capsule PO ×2 (16:56→22:42)
[2018-05-29] MEDS: Mirtazapine 30 MG Tablet PO (22:44)
[2018-05-29] MEDS: 0.9% NaCl Peripheral Flush Adult/Peds IV (22:50)
[2018-05-30] VITALS (10 sets, daily range): BP systolic 96–129; BP diastolic 67–89; PULSE 91–108; RESP 18; TEMP 36.4–36.9; O2SAT 97–100
[2018-05-30] MEDS: 0.9% NaCl Peripheral Flush Adult/Peds IV ×4 (06:08→21:09)
[2018-05-30] MEDS: Hydrocortisone Sod Succinate 100 MG/2 ML Vial 50 MG IV ×2 (06:21→21:09)
[2018-05-30] MEDS: Potassium Chloride 40 MEQ in Dext 5%-0.45% NS 1,000 ML 75 MEQ IV ×2 (06:23→19:59)
[2018-05-30 06:36] LABS: Absolute Neutrophil Count 5.4 X10^3/uL (2.0-7.7); Basophil# 0.02 X10^3/uL; Basophil% 0.3 % (0-1); Hematocrit 23.8 % (37-47); Hemoglobin 8.3 g/dl (12.0-15.0); Lymphocyte % 14.2 % (19-41); Mean Corp Hgb Conc 34.9 g/gl (32-36); Mean Corpuscular Hgb 28.9 pg (27.0-32.0); Mean Corpuscular Volume 82.9 fL (81-99); Mean Platelet Vol. 9.1 fl (6.2-12.0); Monocyte# 0.44 X10^3/uL; Monocyte% 6.3 % (0-10); Neutrophil % 76.6 % (47-70); Platelet Count 332 K/mm3 (150-450); RBC Distribution Width CV 17.8 % (11.6-14.6); RBC Distribution Width SD 51.2 fl (35.1-43.9); Red Blood Count 2.87 M/mm3 (4.2-5.4)
[2018-05-30 06:38] LABS: POSITIVE COUNT YES; POSITIVE DIFFERENTIAL NO; POSITIVE MORPHOLOGY YES
[2018-05-30 06:52] LABS: Albumin, Serum 2.1 g/dL (3.2-5.0); BUN 8 mg/dL (7-18); BUN/Creat Ratio 8.1 RATIO (10-20); Calcium,Total 7.9 mg/dL (8.5-10.1); Chloride 116 mmol/L (98-107); Creatinine, Serum 0.98 mg/dL (0.55-1.02); EST Glomerular Filtration Rate 63 mL/min (>60); Est Glom Filt Rate - Afr Amer 76 mL/min (>60); Estimated Creatinine Clearance 53.24 ml/min; Glucose 98 mg/dL (74-106); Phosphorus 3.4 mg/dL (2.5-4.9); Potassium 2.7 mmol/L (3.5-5.1); Sodium Level 142 mmol/L (136-145)
[2018-05-30] MEDS: Enoxaparin 40 MG/0.4 ML Syringe SC (10:55)
[2018-05-30] MEDS: Menthol/Lanolin/Calamine/Znox 113 GM Tube 1 APPLIC TOPICAL ×4 (10:56→21:10)
[2018-05-30 11:15] LABS: Magnesium 1.7 mg/dL (1.6-2.6)
--- NOTE | 2018-05-30 11:17 | CASEMGMT ---
SW spoke with patient, and asked if she had a chance to look at the SNF list. She said she has not. Every time she picks up the list someone comes into the room for something. She said she is tired and needs some rest. SW asked if she needed assistance with choosing SNF and she said she will just look through the list. MOSES told her SW will check back a little later today. Josy WOODWARD
[2018-05-30 12:35] LABS: Pathologist Review Reviewed
--- NOTE | 2018-05-30 13:27 | CASEMGMT ---
Addendum entered by Josy Feliz 05/30/18 15:05: SW received a call from [facility] and they have no available beds. SW spoke with patient and she was okay with SW making a referral to [facility] and [facility] as they are 2 other facilities in [place]. SW called both facilities with referral and also faxed referrals. Josy WOODWARD Original Note: SW spoke with patient per her request. She asked SW to make a referral to [facility]. SW told her to think of a couple of back up places in case [facility] says no. SW called [facility] and left a voice mail for their admissions person. SW also faxed over referral. Josy WOODWARD
--- NOTE | 2018-05-30 13:51 | PCM.PROGNOTE ---
Patient Problems: Active and Suspected Problems (Last Reviewed 05/16/18 @ 20:50 by Sohan Waddell MD) Severe dehydration (Acute) Cardiac arrest (Acute) Subjective: Patient did well overnight. Patient does continue to have diarrhea. Patient overall feels subjectively improved compared to previous. Blood pressures have remained stable since transfer from the intensive care unit. - Physical Exam General: Alert, Oriented x3, Cooperative, No apparent distress, - - Appears older than stated age. Thin build. No conversational dyspnea noted. HEENT: Atraumatic, PERRLA, EOMI, Normocephalic, - - Some temporal wasting appreciated. Oral: No Gingival or Mucosal Lesions/ Ulcerations, Dry Mucosa Neck: Supple, No JVD, No Nodes, Trachea Midline Lungs: No rhonchi, No wheeze, No rales, Diminished, - - Symmetric expansion. No dullness to percussion. Cardiovascular: Normal S1, Normal S2, No murmurs, No rub noted, No Gallop, Tachycardic Abdomen: Bowel Sounds Present, Soft, Non Tender Extremities: No cyanosis, No edema, Capillary Refill Less than 3 Seconds, Clubbing Skin: - - Desquamation across the forehead noted. Musculoskeletal: No Tenderness to Palpation of Joints or Extremities Lymphatic: No Cervical, Supraclavicular, or Inguinal Adenopathy Neurological: Cranial nerves II-XII grossly intact, Neuro grossly intact, Motor Exam 5/5 strength throughout Psych/Mental Status: Flat Affect, Restless Vital Signs Temp Pulse Resp BP Pulse Ox 36.6 C 104 H 18 120/89 H 100 05/30/18 10:50 05/30/18 11:00 05/30/18 10:50 05/30/18 10:50 05/30/18 10:50 Oxygen Flow Rate (L/min) 2 Oxygen Delivery Method Room Air Weight: 50.8 kg Body Mass Index (BMI) 18.3 Intake and Output for Last 24 Hours 05/28/18 05/29/18 05/30/18 23:59 23:59 23:59 Intake Total 4213.1 / 4213.1 3271 / 3271 1720 / 1720 Output Total 1950 / 1950 2400 / 2400 1475 / 1475 Balance 2263.1 / 2263.1 871 / 871 245 / 245 Microbiology Past 72 Hours 05/27/18 10:35 Blood Culture - Preliminary Blood Culture (Wb) - Left Wrist No growth in 48 hours. 05/27/18 09:25 Blood Culture - Preliminary Blood Culture (Wb) - Central Line No growth in 48 hours. 05/27/18 10:35 Urine Culture - Final Urine Catheter - Mcdermott Escherichia coli Pseudomonas aeroginosa 05/28/18 11:00 Enteric Bacteriology - Final Stool 05/26/18 14:19 Stool Lactoferrin - Final Stool Laboratory Tests Past 24 Hrs 05/26/18 05/28/18 05/30/18 12:15 04:15 06:10 WBC 7.0 RBC 2.87 L Hgb 8.3 L Hct 23.8 L MCV 82.9 MCH 28.9 MCHC 34.9 RDW 17.8 H RDW Differential 51.2 H Plt Count 332 MPV 9.1 Immature Gran % (Auto) 2.600 H Neut % (Auto) 76.6 H Lymph % (Auto) 14.2 L [facility] % (Auto) 6.3 Eos % (Auto) 0.0 Baso % (Auto) 0.3 Absolute Neuts (auto) 5.4 Absolute Lymphs (auto) 1.00 Total Counted Not Reportable Diff Path Review Reviewed Reviewed Sodium Potassium Chloride Carbon Dioxide BUN Creatinine Estim Creat Clear Calc Est GFR (MDRD) Af Amer Est GFR (MDRD) Non-Af BUN/Creatinine Ratio Glucose Calcium Phosphorus Magnesium 1.8 Albumin 05/30/18 05/30/18 06:10 10:23 WBC RBC Hgb Hct MCV MCH MCHC RDW RDW Differential Plt Count MPV Immature Gran % (Auto) Neut % (Auto) Lymph % (Auto) [facility] % (Auto) Eos % (Auto) Baso % (Auto) Absolute Neuts (auto) Absolute Lymphs (auto) Total Counted Diff Path Review Sodium 142 Potassium 2.7 L* Chloride 116 H Carbon Dioxide 15.0 L BUN 8 Creatinine 0.98 Estim Creat Clear Calc 53.24 Est GFR (MDRD) Af Amer 76 Est GFR (MDRD) Non-Af 63 BUN/Creatinine Ratio 8.1 L Glucose 98 Calcium 7.9 L Phosphorus 3.4 Magnesium 1.7 Albumin 2.1 L Medical Necessity - Tobacco Use Smoking Status: Current some day smoker Assessment/Plan All Active Problems (Last Reviewed 05/16/18 @ 20:50 by Sohan Waddell MD) Acute kidney injury (Acute) Hypokalemia (Acute) Abnormal EKG (Acute) Hyponatremia (Acute) Nausea vomiting and diarrhea (Acute) Severe dehydration (Acute) Cardiac arrest (Acute) Pulmonary embolism (Acute) Periodontal disease (Acute) Nausea & vomiting (Acute) Headache (Acute) Encounter for adjustment or management of vascular access device (Acute) Small cell lung cancer (Acute) Regional lymph node metastasis present (Acute) Lung metastasis (Acute) RECOMMENDATIONS: 1. Decrease stress dose steroids 2. Position antinausea medications to as needed 3. Continue Imodium 4. Initiate p.o. bicarbonate 5. Discontinue Levophed therapy 6. Okay to go out of the intensive care unit from my perspective IMPRESSIONS: 1. Relative adrenal insufficiency with hypovolemic shock Patient has responded well to IV fluids. However, patient's pressor requirements improved rapidly after administration of stress dose steroids. Will decrease stress dose steroids, but patient will need to be on a slow taper. Patient would benefit from outpatient evaluation by endocrinology. We will keep steroids IV given patient's continued diarrhea with questionable absorption. Add bicarbonate by mouth to compensate for GI losses. Stool O&P is still pending. 2. Acute kidney injury likely secondary to prerenal azotemia Improving with volume expansion. We will continue to monitor urine output. No indication for renal replacement therapy at this time. 3. Hyponatremia/hypokalemia/non-anion gap metabolic acidosis Likely secondary to intravascular volume depletion from gastrointestinal losses. Patient tolerating modified diet. Defer electrolyte repletion to hospitalist. 4. Small cell lung cancer of the right lung The patient was diagnosed with limited stage small cell lung cancer in 2014. She underwent concurrent chemoradiation wtih cisplatin/etoposide and completed prophylactic intracranial irradiation. She presented with local recurrent disease in 2017. Biopsy of LIMA on 04/17/17 was positive for small cell carcinoma. She has since progressed through 3 additional cycles of cisplatin/etoposide, topotecan and weekly paclitaxel. Began nivolumab and ipilimumab on 03/03/18 under the care of Dr. Cabral at [facility]. 5. Severe protein calorie malnutrition/debility/recurrent hypoglycemia/bipolar/minimal tobacco abuse Complicates care, management, recovery and prognosis. Continue nicotine replacement therapy. Nutrition is following. Code Visit Inpatient E&M: 45078 Subs Hosp L2
--- NOTE | 2018-05-30 14:58 | PCM.PN.HOSP ---
Patient Problems: Active and Suspected Problems (Last Reviewed 05/16/18 @ 20:50 by Sohan Waddell MD) Severe dehydration (Acute) Cardiac arrest (Acute) Subjective: Patient was seen and examined. Having multiple bowel movements. Denies any fever or chills or abdominal cramps. Objective: Physical exam: General: Alert, Cooperative,pale, cachetic HEENT: Atraumatic, PERRLA, EOMI, Normocephalic Neck: Supple Lungs: Clear to auscultation, Normal air movement Cardiovascular: Regular rate, Regular Rhythm, Normal S1, Normal S2, No murmurs Abdomen: Bowel Sounds Present, Soft, Tenderness over epigastric region, Non-Distended, No Hepato-splenomegaly Extremities: No edema Skin: No rashes, No breakdown Musculoskeletal: No Tenderness to Palpation of Joints or Extremities Lymphatic: No Cervical, Supraclavicular, or Inguinal Adenopathy Neurological: Cranial nerves II-XII grossly intact, Neuro grossly intact Psych/Mental Status: Normal Affect, Appropriate Vitals/I&O's: Vital Signs Temp Pulse Resp BP Pulse Ox 97.9 F 104 H 18 120/89 H 100 05/30/18 10:50 05/30/18 11:00 05/30/18 10:50 05/30/18 10:50 05/30/18 10:50 Oxygen Flow Rate (L/min) 2 Oxygen Delivery Method Room Air Weight: 50.8 kg Body Mass Index (BMI) 18.3 Intake and Output for Last 24 Hours 05/28/18 05/29/18 05/30/18 23:59 23:59 23:59 Intake Total 4213.1 / 4213.1 3271 / 3271 1720 / 1720 Output Total 1950 / 1950 2400 / 2400 1475 / 1475 Balance 2263.1 / 2263.1 871 / 871 245 / 245 Microbiology Past 72 Hours 05/27/18 10:35 Blood Culture (Wb) - Left Wrist Blood Culture - Preliminary No growth in 48 hours. 05/27/18 09:25 Blood Culture (Wb) - Central Line Blood Culture - Preliminary No growth in 48 hours. 05/27/18 10:35 Urine Catheter - Mcdermott Urine Culture - Final Escherichia coli Pseudomonas aeroginosa 05/28/18 11:00 Stool Enteric Bacteriology - Final 05/26/18 14:19 Stool Stool Lactoferrin - Final Laboratory Results 05/28/18 04:15: Magnesium 1.8 05/30/18 06:10: WBC 7.0, RBC 2.87 L, Hgb 8.3 L, Hct 23.8 L, MCV 82.9, MCH 28.9, MCHC 34.9, RDW 17.8 H, RDW Differential 51.2 H, Plt Count 332, MPV 9.1, Immature Gran % (Auto) 2.600 H, Neut % (Auto) 76.6 H, Lymph % (Auto) 14.2 L, Wagoner % (Auto) 6.3, Eos % (Auto) 0.0, Baso % (Auto) 0.3, Absolute Neuts (auto) 5.4, Absolute Lymphs (auto) 1.00, Total Counted Not Reportable, Diff Path Review Reviewed 05/30/18 06:10: Sodium 142, Potassium 2.7 L*, Chloride 116 H, Carbon Dioxide 15.0 L, BUN 8, Creatinine 0.98, Estim Creat Clear Calc 53.24, Est GFR (MDRD) Af Amer 76, Est GFR (MDRD) Non-Af 63, BUN/Creatinine Ratio 8.1 L, Glucose 98, Calcium 7.9 L, Phosphorus 3.4, Albumin 2.1 L 05/30/18 10:23: Magnesium 1.7 Current Medications Acetaminophen (Tylenol) 650 mg PO Q6H PRN PRN PRN Reason: Fever >101 Last Admin: 05/27/18 05:34 Dose: 650 mg Calamine/Phenol (Calmoseptine Ointment) 1 applic TOPICAL 4X/DAY [facility]; Protocol Last Admin: 05/30/18 10:56 Dose: 1 applicatio Diazepam (Valium) 10 mg PO BID PRN PRN PRN Reason: ANXIETY Enoxaparin Sodium (Lovenox) 40 mg SC DAILY@1000 LUCRECIA Last Admin: 05/30/18 10:55 Dose: 40 mg Heparin Sodium (Beef Lung) () 50 units IV UD PRN PRN Reason: HEPARIN FLUSH Hydrocortisone Sodium Succinate (Solu-Cortef) 50 mg IV Q12 LUCRECIA Potassium Chloride 40 meq/ (Dextrose/Sodium Chloride) 1,020 mls @ 75 mls/hr IV .[id number] LUCRECIA Last Admin: 05/30/18 06:23 Dose: 75 mls/hr Loperamide HCl (Imodium) 2 mg PO Q4H PRN PRN PRN Reason: Diarrhea Last Admin: 05/29/18 22:42 Dose: 2 mg Magnesium Hydroxide (Milk Of Magnesia) 30 ml PO DAILY PRN PRN PRN Reason: Constipation Mirtazapine (Remeron) 30 mg PO HS [place]ECIA Last Admin: 05/29/18 22:44 Dose: 30 mg Nicotine (Nicoderm Cq (Pbkc)) 21 mg TRANSDERM. DAILY LUCRECIA Last Admin: 05/30/18 12:10 Dose: 21 mg Ondansetron HCl (Zofran) 8 mg IV Q8H PRN PRN PRN Reason: NAUSEA/VOMITING Oxycodone HCl (Oxyir) 5 mg PO Q6H PRN PRN PRN Reason: PAIN Sodium Chloride () 5 - 30 ml IV UD PRN PRN Reason: SALINE FLUSH Last Admin: 05/30/18 10:55 Dose: 10 ml Sodium Chloride () 10 ml IV UD PRN PRN Reason: VAD FLUSH Last Admin: 05/28/18 05:34 Dose: 10 ml Medical Necessity - Tobacco Use Smoking Status: Current some day smoker Assessment/Plan All Active Problems (Last Reviewed 05/16/18 @ 20:50 by Sohan Waddell MD) Acute kidney injury (Acute) Hypokalemia (Acute) Abnormal EKG (Acute) Hyponatremia (Acute) Nausea vomiting and diarrhea (Acute) Severe dehydration (Acute) Cardiac arrest (Acute) Pulmonary embolism (Acute) Periodontal disease (Acute) Nausea & vomiting (Acute) Headache (Acute) Encounter for adjustment or management of vascular access device (Acute) Small cell lung cancer (Acute) Regional lymph node metastasis present (Acute) Lung metastasis (Acute) 52-year-old female with past medical history of small cell lung cancer status on immunotherapy, COPD, chronic smoker who was admitted with hypotension and has since been managed in the ICU. 1. Hypovolemic shock due to dehydration, possible adrenal insufficiency, resolved, off pressors, remains on IV fluids, will continue on IV fluids 2. Intractable nausea, vomiting, resolved, 3. Diarrhea, persistent, likely secondary to colitis, likely possible of Opdivo side effect, stool lactoferrin positive, stool for enteric panel negative, started on Imodium prn, will continue to monitor. 4. Hypokalemia, K is 2.7, will replace IV and po, labs in am 5. Acute kidney injury secondary to dehydration, resolved 6. Hyponatremia, acute, hypovolemic, resolved 7. Non-anion gap metabolic acidosis secondary to acute diarrhea, persistent, will continue on sodium bicarbonate x 24 hours 8. COPD, not in acute exacerbation, stable, on room air 9. History of small cell lung cancer, on immunotherapy 10. DVT prophylaxis with Lovenox subcu 11. Disposition: Will wait for PT/OT evaluations to assist in discharge planning. Code Visit Inpatient E&M: 74116 Subs Hosp L2
--- NOTE | 2018-05-30 16:32 | CASEMGMT ---
MOSES heard back from [facility] and they will take patient as long as she is ok with not smoking. MOSES has not heard back from [facility] yet. MOSES received a voice mail from Chandana at [facility]. He left date and time of next appointment for chemo. MOSES will have to follow up on this as [facility] may not accept patient now that she will be getting chemo. MOSES let patient know [facility] should be able to take her as long as she is ok with not smoking. She said she is find with this. MOSES will call Chandana at [facility] tomorrow and Geovanna at [facility] to figure out the chemo. Josy RODRIGUEZ MSW
[2018-05-30] MEDS: Loperamide 2 MG Capsule PO ×2 (17:12→22:08)
[2018-05-30] MEDS: Sodium Bicarbonate 650 MG Tablet PO ×2 (17:12→21:11)
[2018-05-30] MEDS: Mirtazapine 30 MG Tablet PO (21:11)
[2018-05-31] VITALS (12 sets, daily range): BP systolic 115–131; BP diastolic 73–82; PULSE 85–98; RESP 18; TEMP 36.8–36.9; O2SAT 99–100
[2018-05-31] MEDS: 0.9% NaCl Peripheral Flush Adult/Peds IV ×4 (05:32→21:21)
[2018-05-31 06:30] LABS: Albumin, Serum 2.2 g/dL (3.2-5.0); BUN 9 mg/dL (7-18); BUN/Creat Ratio 9.7 RATIO (10-20); Calcium,Total 7.7 mg/dL (8.5-10.1); Chloride 114 mmol/L (98-107); Creatinine, Serum 0.93 mg/dL (0.55-1.02); EST Glomerular Filtration Rate 67 mL/min (>60); Est Glom Filt Rate - Afr Amer 81 mL/min (>60); Estimated Creatinine Clearance 56.66 ml/min; Glucose 77 mg/dL (74-106); Phosphorus 2.9 mg/dL (2.5-4.9); Potassium 2.9 mmol/L (3.5-5.1); Sodium Level 141 mmol/L (136-145)
[2018-05-31 06:39] LABS: Hemoglobin 8.4 g/dl (12.0-15.0); Mean Corp Hgb Conc 33.6 g/gl (32-36); Mean Corpuscular Hgb 27.9 pg (27.0-32.0); Mean Corpuscular Volume 83.1 fL (81-99); Mean Platelet Vol. 8.5 fl (6.2-12.0); Platelet Count 283 K/mm3 (150-450); RBC Distribution Width CV 18.3 % (11.6-14.6); RBC Distribution Width SD 55.3 fl (35.1-43.9); Red Blood Count 3.01 M/mm3 (4.2-5.4); White Blood Count 7.8 K/mm3 (4.4-11.0)
[2018-05-31 06:40] LABS: Differential Indicated MANUAL DIFF; POSITIVE COUNT YES; POSITIVE DIFFERENTIAL NO; POSITIVE MORPHOLOGY YES
[2018-05-31 06:54] LABS: Eosinophil 1 % (0-5); Lymphocyte 16 % (19-41); Metamyelocyte 2 % (0-1); Monocyte 8 % (0-10); Neutrophil-Band 2 % (0-5); Neutrophil-Segmented 71 % (47-70); Total Cells Counted 100 (MANUAL DIFF)
[2018-05-31 06:55] LABS: Absolute Lymphocyte Count 1.24 X10^3/ul (0.83-4.51); Absolute Neutrophil Count 5.7 X10^3/uL (2.0-7.7); Lymphocyte # 1.24 X10^3/ul (4.0); Neutrophil # 5.69 X10^3/uL (2.7-7.7); Platelet Estimate ADEQUATE (ADEQ); Red Cell Morphology NORM C+C NORMAL (NORM C&C)
--- NOTE | 2018-05-31 09:13 | CASEMGMT ---
MOSES spoke with Chandana at [facility]. He said patient's appt is 10-25 and schedule for appt is as follows: 9am CT at [facility], 11:15 blood work, 11:30 appt with Nurse Practitioner, Dalton Huizar, and 12:30 chemo. The chemo drug is Nivo. Chandana did not know how often this will be or if appt could be changed. He will have nurse and schedule call MOSES back. MOSES called Geovanna at [facility] and left her a vm letting her know patient is ok with no smoking, but now her Oncologist is talking about chemo next week. MOSES asked her to please call MOSES back. Josy RODRIGUEZ MULTIPLE PRESSURE RIVETER OPERATOR
[2018-05-31] MEDS: Potassium Chloride 40 MEQ in Dext 5%-0.45% NS 1,000 ML 75 MEQ IV (09:30)
[2018-05-31] MEDS: Menthol/Lanolin/Calamine/Znox 113 GM Tube 1 APPLIC TOPICAL ×4 (09:31→21:12)
[2018-05-31] MEDS: Sodium Bicarbonate 650 MG Tablet PO ×4 (09:31→21:21)
[2018-05-31] MEDS: Hydrocortisone Sod Succinate 100 MG/2 ML Vial 50 MG IV ×2 (09:37→21:11)
[2018-05-31] MEDS: Enoxaparin 40 MG/0.4 ML Syringe SC (09:37)
--- NOTE | 2018-05-31 10:45 | CASEMGMT ---
MOSES spoke with Erika the triage nurse with [facility]. MOSES explained patient will be going to a [facility] and getting chemo is usually an issue. She said they don't like to do chemo while a patient is in a [facility], they prefer to wait until patient is better. MOSES told her there is an appt on the May. She will have that appt canceled and would like patient to follow up when she is discharged from the [facility]. MOSES called Geovanna at [facility] back and let her know this information. She will start the pre-cert. Plan: [facility] pending pre-cert Josy RODRIGUEZ MSW
--- NOTE | 2018-05-31 11:10 | CASEMGMT ---
MOSES spoke with patient and let her know that [facility] can take her and she will not be getting any chemo until she leaves the group home. MOSES told her we are waiting on her insurance to approve her to go to [facility]. MOSES explained this will likely not be until tomorrow or Tuesday. She thanked MOSES for the help. Plan: [facility] pending insurance approval Josy WOODWARD
--- NOTE | 2018-05-31 11:58 | PN_ITS ---
Patient Problems: Active and Suspected Problems (Last Reviewed 05/16/18 @ 20:50 by Sohan Waddell MD) Severe dehydration (Acute) Cardiac arrest (Acute) Subjective: Patient did okay overnight. Patient is reporting intermittent muscle cramping. No chest pain, abdominal pain, nausea or vomiting has been reported. Patient does continue to have diarrhea. Vision is tolerating room air. No boluses have been required for hypotension, but patient has had significant potassium repletion. - Physical Exam General: Alert, Cooperative, No apparent distress, - - Appears older than stated age. Speaking in full sentences. HEENT: Atraumatic, PERRLA, EOMI, Normocephalic Oral: Moist Mucosa, No Gingival or Mucosal Lesions/ Ulcerations Neck: Supple, No JVD, No Nodes, Trachea Midline Lungs: No rhonchi, No wheeze, No rales, Diminished Cardiovascular: Regular rate, Regular Rhythm, Normal S1, Normal S2, No murmurs, No rub noted, No Gallop Abdomen: Bowel Sounds Present, Soft, Non Tender, Non-Distended Extremities: No cyanosis, No edema, Capillary Refill Less than 3 Seconds, Clubbing Skin: - - Desquamation continues to improve Musculoskeletal: No Tenderness to Palpation of Joints or Extremities Lymphatic: No Cervical, Supraclavicular, or Inguinal Adenopathy Neurological: Cranial nerves II-XII grossly intact, Neuro grossly intact, Motor Exam 5/5 strength throughout Psych/Mental Status: Anxious, Restless Vital Signs Temp Pulse Resp BP Pulse Ox 36.8 C 90 18 117/73 99 05/31/18 09:26 05/31/18 11:34 05/31/18 09:44 05/31/18 09:26 05/31/18 09:26 Oxygen Flow Rate (L/min) 2 Oxygen Delivery Method Room Air Weight: 51.3 kg Body Mass Index (BMI) 18.3 Intake and Output for Last 24 Hours 05/29/18 05/30/18 05/31/18 23:59 23:59 23:59 Intake Total 3271 / 3271 2802 / 2802 431 / 431 Output Total 2400 / 2400 3225 / 3225 900 / 900 Balance 871 / 871 -423 / -423 -469 / -469 Microbiology Past 72 Hours 05/27/18 10:35 Blood Culture - Preliminary Blood Culture (Wb) - Left Wrist No growth in 48 hours. 05/27/18 09:25 Blood Culture - Preliminary Blood Culture (Wb) - Central Line No growth in 48 hours. 05/27/18 10:35 Urine Culture - Final Urine Catheter - Mcdermott Escherichia coli Pseudomonas aeroginosa 05/28/18 11:00 Enteric Bacteriology - Final Stool Laboratory Tests Past 24 Hrs 05/30/18 05/31/18 05/31/18 06:10 05:30 05:30 WBC 7.8 RBC 3.01 L Hgb 8.4 L Hct 25.0 L MCV 83.1 MCH 27.9 MCHC 33.6 RDW 18.3 H RDW Differential 55.3 H Plt Count 283 MPV 8.5 Neut % (Auto) Not Reportable Absolute Neuts (auto) 5.7 Absolute Lymphs (auto) 1.24 Total Counted 100 Neutrophils % (Manual) 71 H Band Neutrophils % 2 Lymphocytes % (Manual) 16 L Monocytes % (Manual) 8 Eosinophils % (Manual) 1 Metamyelocytes % 2 H Diff Path Review Reviewed May foll Platelet Estimate ADEQUATE RBC Morphology NORM C+C Sodium 141 Potassium 2.9 L Chloride 114 H Carbon Dioxide 16.0 L BUN 9 Creatinine 0.93 Estim Creat Clear Calc 56.66 Est GFR (MDRD) Af Amer 81 Est GFR (MDRD) Non-Af 67 BUN/Creatinine Ratio 9.7 L Glucose 77 Calcium 7.7 L Phosphorus 2.9 Albumin 2.2 L Medical Necessity - Tobacco Use Smoking Status: Current some day smoker Assessment/Plan All Active Problems (Last Reviewed 05/16/18 @ 20:50 by Sohan Waddell MD) Acute kidney injury (Acute) Hypokalemia (Acute) Abnormal EKG (Acute) Hyponatremia (Acute) Nausea vomiting and diarrhea (Acute) Severe dehydration (Acute) Cardiac arrest (Acute) Pulmonary embolism (Acute) Periodontal disease (Acute) Nausea & vomiting (Acute) Headache (Acute) Encounter for adjustment or management of vascular access device (Acute) Small cell lung cancer (Acute) Regional lymph node metastasis present (Acute) Lung metastasis (Acute) RECOMMENDATIONS: 1. Continue stress dose steroids by IV until diarrhea improves 2. Position antinausea medications to as needed 3. Continue Imodium 4. Consider p.o. bicarbonate 5. Patient should not be discontinued off of antibiotics until seen by endocrinology as an outpatient IMPRESSIONS: 1. Relative adrenal insufficiency with hypovolemic shock Patient has responded well to IV fluids. However, patient's pressor requirements improved rapidly after administration of stress dose steroids. Will decrease stress dose steroids, but patient will need to be on a slow taper. Patient would benefit from outpatient evaluation by endocrinology. We will keep steroids IV given patient's continued diarrhea with questionable absorption. Consider adding bicarbonate by mouth to compensate for GI losses. Stool O&P is still pending. 2. Acute kidney injury likely secondary to prerenal azotemia Improving with volume expansion. We will continue to monitor urine output. No indication for renal replacement therapy at this time. 3. Hyponatremia/hypokalemia/non-anion gap metabolic acidosis Likely secondary to intravascular volume depletion from gastrointestinal losses. Patient tolerating modified diet. Defer electrolyte repletion to hospitalist. 4. Small cell lung cancer of the right lung The patient was diagnosed with limited stage small cell lung cancer in 2014. She underwent concurrent chemoradiation wtih cisplatin/etoposide and completed prophylactic intracranial irradiation. She presented with local recurrent disease in 2016. Biopsy of LIMA on 04/17/17 was positive for small cell carcinoma. She has since progressed through 3 additional cycles of cisplatin/etoposide, topotecan and weekly paclitaxel. Began nivolumab and ipilimumab on 03/03/18 under the care of Dr. Cabral at [facility]. 5. Severe protein calorie malnutrition/debility/recurrent hypog lycemia/bipolar/minimal tobacco abuse Complicates care, management, recovery and prognosis. Continue nicotine replacement therapy. Nutrition is following. Code Visit Inpatient E&M: 34862 Subs Hosp L2
[2018-05-31 12:37] LABS: Pathologist Review Reviewed
--- NOTE | 2018-05-31 15:55 | PCM.PN.HOSP ---
Patient Problems: Active and Suspected Problems (Last Reviewed 05/16/18 @ 20:50 by Sohan Waddell MD) Severe dehydration (Acute) Cardiac arrest (Acute) Subjective: Patient seen and examined. She has been having repeated bowel movements. Denies fever, chills, SOB, chest pain. Still feels very weak. Discussed with care management, patient will be discharged to a [facility] facility. Objective: Physical exam: General: Alert, Cooperative,pale, cachetic, on room air. HEENT: Atraumatic, PERRLA, EOMI, Normocephalic Neck: Supple Lungs: Clear to auscultation, Normal air movement Cardiovascular: Regular rate, Regular Rhythm, Normal S1, Normal S2, No murmurs Abdomen: Bowel Sounds Present, Soft, Tenderness over epigastric region, Non-Distended, No Hepato-splenomegaly Extremities: No edema Skin: No rashes, No breakdown Musculoskeletal: No Tenderness to Palpation of Joints or Extremities Lymphatic: No Cervical, Supraclavicular, or Inguinal Adenopathy Neurological: Cranial nerves II-XII grossly intact, Neuro grossly intact Psych/Mental Status: Normal Affect, Appropriate Vitals/I&O's: Vital Signs Temp Pulse Resp BP Pulse Ox 98.2 F 98 18 117/73 99 05/31/18 09:26 05/31/18 15:06 05/31/18 13:24 05/31/18 09:26 05/31/18 09:26 Oxygen Flow Rate (L/min) 2 Oxygen Delivery Method Room Air Weight: 51.3 kg Body Mass Index (BMI) 18.3 Intake and Output for Last 24 Hours 05/29/18 05/30/18 05/31/18 23:59 23:59 23:59 Intake Total 3271 / 3271 2802 / 2802 1376 / 1376 Output Total 2400 / 2400 3225 / 3225 1675 / 1675 Balance 871 / 871 -423 / -423 -299 / -299 Microbiology Past 72 Hours 05/27/18 10:35 Blood Culture (Wb) - Left Wrist Blood Culture - Preliminary No growth in 48 hours. 05/27/18 09:25 Blood Culture (Wb) - Central Line Blood Culture - Preliminary No growth in 48 hours. 05/27/18 10:35 Urine Catheter - Mcdermott Urine Culture - Final Escherichia coli Pseudomonas aeroginosa 05/28/18 11:00 Stool Enteric Bacteriology - Final Laboratory Results 05/31/18 05:30: WBC 7.8, RBC 3.01 L, Hgb 8.4 L, Hct 25.0 L, MCV 83.1, MCH 27.9, MCHC 33.6, RDW 18.3 H, RDW Differential 55.3 H, Plt Count 283, MPV 8.5, Neut % (Auto) Not Reportable, Absolute Neuts (auto) 5.7, Absolute Lymphs (auto) 1.24, Total Counted 100, Neutrophils % (Manual) 71 H, Band Neutrophils % 2, Lymphocytes % (Manual) 16 L, Monocytes % (Manual) 8, Eosinophils % (Manual) 1, Metamyelocytes % 2 H, Diff Path Review Reviewed, Platelet Estimate ADEQUATE, RBC Morphology NORM C+C 05/31/18 05:30: Sodium 141, Potassium 2.9 L, Chloride 114 H, Carbon Dioxide 16.0 L, BUN 9, Creatinine 0.93, Estim Creat Clear Calc 56.66, Est GFR (MDRD) Af Amer 81, Est GFR (MDRD) Non-Af 67, BUN/Creatinine Ratio 9.7 L, Glucose 77, Calcium 7.7 L, Phosphorus 2.9, Albumin 2.2 L Current Medications Acetaminophen (Tylenol) 650 mg PO Q6H PRN PRN PRN Reason: Fever >101 Last Admin: 05/27/18 05:34 Dose: 650 mg Calamine/Phenol (Calmoseptine Ointment) 1 applic TOPICAL 4X/DAY [facility]; Protocol Last Admin: 05/31/18 13:28 Dose: 1 applicatio Diazepam (Valium) 10 mg PO BID PRN PRN PRN Reason: ANXIETY Enoxaparin Sodium (Lovenox) 40 mg SC DAILY@1000 [place] Last Admin: 05/31/18 09:37 Dose: 40 mg Heparin Sodium (Beef Lung) () 50 units IV UD PRN PRN Reason: HEPARIN FLUSH Hydrocortisone Sodium Succinate (Solu-Cortef) 50 mg IV Q12 [place]IA Last Admin: 05/31/18 09:37 Dose: 50 mg Potassium Chloride 40 meq/ (Dextrose/Sodium Chloride) 1,020 mls @ 75 mls/hr IV .[id number] [facility] Last Admin: 05/31/18 09:30 Dose: 75 mls/hr Loperamide HCl (Imodium) 2 mg PO Q4H PRN PRN PRN Reason: Diarrhea Last Admin: 05/30/18 22:08 Dose: 2 mg Magnesium Hydroxide (Milk Of Magnesia) 30 ml PO DAILY PRN PRN PRN Reason: Constipation Mirtazapine (Remeron) 30 mg PO HS LUCRECIA Last Admin: 05/30/18 21:11 Dose: 30 mg Nicotine (Nicoderm Cq (Pbkc)) 21 mg TRANSDERM. DAILY [place] Last Admin: 05/31/18 09:37 Dose: 21 mg Ondansetron HCl (Zofran) 8 mg IV Q8H PRN PRN PRN Reason: NAUSEA/VOMITING Oxycodone HCl (Oxyir) 5 mg PO Q6H PRN PRN PRN Reason: PAIN Potassium Chloride (K-Dur) 40 meq PO BIDCM [place] Sodium Chloride () 5 - 30 ml IV UD PRN PRN Reason: SALINE FLUSH Last Admin: 05/31/18 14:58 Dose: 10 ml Sodium Chloride () 10 ml IV UD PRN PRN Reason: VAD FLUSH Last Admin: 05/28/18 05:34 Dose: 10 ml Medical Necessity - Tobacco Use Smoking Status: Current some day smoker Tobacco Use: Non-smoker Assessment/Plan All Active Problems (Last Reviewed 05/16/18 @ 20:50 by Sohan Waddell MD) Acute kidney injury (Acute) Hypokalemia (Acute) Abnormal EKG (Acute) Hyponatremia (Acute) Nausea vomiting and diarrhea (Acute) Severe dehydration (Acute) Cardiac arrest (Acute) Pulmonary embolism (Acute) Periodontal disease (Acute) Nausea & vomiting (Acute) Headache (Acute) Encounter for adjustment or management of vascular access device (Acute) Small cell lung cancer (Acute) Regional lymph node metastasis present (Acute) Lung metastasis (Acute) 52-year-old female with past medical history of small cell lung cancer status on immunotherapy, COPD, chronic smoker who was admitted with hypotension and has since been managed in the ICU. 1. Hypovolemic shock due to dehydration, possible adrenal insufficiency, resolved, on maintenance IV fluids. 2. Intractable nausea, vomiting, resolved, 3. Diarrhea, persistent, likely secondary to colitis, likely possible of Opdivo side effect, stool lactoferrin positive, stool for enteric panel negative, on Imodium prn, will continue to monitor. 4. Hypokalemia, K is 2.9, will replace IV and po, labs in am 5. Acute kidney injury secondary to dehydration, resolved 6. Hyponatremia, acute, hypovolemic, resolved 7. Non-anion gap metabolic acidosis secondary to acute diarrhea, persistent, will continue on sodium bicarbonate x 24 hours 8. COPD, not in acute exacerbation, stable, on room air 9. History of small cell lung cancer, on immunotherapy 10. DVT prophylaxis with Lovenox subcu 11. Disposition: Waiting on SNF Code Visit Inpatient E&M: 51652 Subs Hosp L2
--- NOTE | 2018-05-31 16:03 | PN_ITS ---
Patient Problems: Active and Suspected Problems (Last Reviewed 05/16/18 @ 20:50 by Sohan Waddell MD) Severe dehydration (Acute) Cardiac arrest (Acute) Subjective: Patient seen and examined. She has been having repeated bowel movements. Denies fever, chills, SOB, chest pain. Still feels very weak. Discussed with care management, patient will be discharged to a long-term facility. Objective: Physical exam: General: Alert, Cooperative,pale, cachetic, on room air. HEENT: Atraumatic, PERRLA, EOMI, Normocephalic Neck: Supple Lungs: Clear to auscultation, Normal air movement Cardiovascular: Regular rate, Regular Rhythm, Normal S1, Normal S2, No murmurs Abdomen: Bowel Sounds Present, Soft, Tenderness over epigastric region, Non- Distended, No Hepato-splenomegaly Extremities: No edema Skin: No rashes, No breakdown Musculoskeletal: No Tenderness to Palpation of Joints or Extremities Lymphatic: No Cervical, Supraclavicular, or Inguinal Adenopathy Neurological: Cranial nerves II-XII grossly intact, Neuro grossly intact Psych/Mental Status: Normal Affect, Appropriate Vitals/I&O's: Vital Signs Temp Pulse Resp BP Pulse Ox 98.2 F 98 18 117/73 99 05/31/18 09:26 05/31/18 15:06 05/31/18 13:24 05/31/18 09:26 05/31/18 09:26 Oxygen Flow Rate (L/min) 2 Oxygen Delivery Method Room Air Weight: 51.3 kg Body Mass Index (BMI) 18.3 Intake and Output for Last 24 Hours 05/29/18 05/30/18 05/31/18 23:59 23:59 23:59 Intake Total 3271 / 3271 2802 / 2802 1376 / 1376 Output Total 2400 / 2400 3225 / 3225 1675 / 1675 Balance 871 / 871 -423 / -423 -299 / -299 Microbiology Past 72 Hours 05/27/18 10:35 Blood Culture (Wb) - Left Wrist Blood Culture - Preliminary No growth in 48 hours. 05/27/18 09:25 Blood Culture (Wb) - Central Line Blood Culture - Preliminary No growth in 48 hours. 05/27/18 10:35 Urine Catheter - Mcdermott Urine Culture - Final Escherichia coli Pseudomonas aeroginosa 05/28/18 11:00 Stool Enteric Bacteriology - Final Laboratory Results 05/31/18 05:30: WBC 7.8, RBC 3.01 L, Hgb 8.4 L, Hct 25.0 L, MCV 83.1, MCH 27.9, MCHC 33.6, RDW 18.3 H, RDW Differential 55.3 H, Plt Count 283, MPV 8.5, Neut % (Auto) Not Reportable, Absolute Neuts (auto) 5.7, Absolute Lymphs (auto) 1.24, Total Counted 100, Neutrophils % (Manual) 71 H, Band Neutrophils % 2, Lymphocytes % (Manual) 16 L, Monocytes % (Manual) 8, Eosinophils % (Manual) 1, Metamyelocytes % 2 H, Diff Path Review Reviewed, Platelet Estimate ADEQUATE, RBC Morphology NORM C+C 05/31/18 05:30: Sodium 141, Potassium 2.9 L, Chloride 114 H, Carbon Dioxide 16.0 L, BUN 9, Creatinine 0.93, Estim Creat Clear Calc 56.66, Est GFR (MDRD) Af Amer 81, Est GFR (MDRD) Non-Af 67, BUN/Creatinine Ratio 9.7 L, Glucose 77, Calcium 7.7 L, Phosphorus 2.9, Albumin 2.2 L Current Medications Acetaminophen (Tylenol) 650 mg PO Q6H PRN PRN PRN Reason: Fever >101 Last Admin: 05/27/18 05:34 Dose: 650 mg Calamine/Phenol (Calmoseptine Ointment) 1 applic TOPICAL 4X/DAY [facility]; Protocol Last Admin: 05/31/18 13:28 Dose: 1 applicatio Diazepam (Valium) 10 mg PO BID PRN PRN PRN Reason: ANXIETY Enoxaparin Sodium (Lovenox) 40 mg SC DAILY@1000 [place] Last Admin: 05/31/18 09:37 Dose: 40 mg Heparin Sodium (Beef Lung) () 50 units IV UD PRN PRN Reason: HEPARIN FLUSH Hydrocortisone Sodium Succinate (Solu-Cortef) 50 mg IV Q12 [place] Last Admin: 05/31/18 09:37 Dose: 50 mg Potassium Chloride 40 meq/ (Dextrose/Sodium Chloride) 1,020 mls @ 75 mls/hr IV .[id number] [facility] Last Admin: 05/31/18 09:30 Dose: 75 mls/hr Loperamide HCl (Imodium) 2 mg PO Q4H PRN PRN PRN Reason: Diarrhea Last Admin: 05/30/18 22:08 Dose: 2 mg Magnesium Hydroxide (Milk Of Magnesia) 30 ml PO DAILY PRN PRN PRN Reason: Constipation Mirtazapine (Remeron) 30 mg PO HS [place]ECIA Last Admin: 05/30/18 21:11 Dose: 30 mg Nicotine (Nicoderm Cq (Pbkc)) 21 mg TRANSDERM. DAILY [place]IA Last Admin: 05/31/18 09:37 Dose: 21 mg Ondansetron HCl (Zofran) 8 mg IV Q8H PRN PRN PRN Reason: NAUSEA/VOMITING Oxycodone HCl (Oxyir) 5 mg PO Q6H PRN PRN PRN Reason: PAIN Potassium Chloride (K-Dur) 40 meq PO BIDCM [place] Sodium Chloride () 5 - 30 ml IV UD PRN PRN Reason: SALINE FLUSH Last Admin: 05/31/18 14:58 Dose: 10 ml Sodium Chloride () 10 ml IV UD PRN PRN Reason: VAD FLUSH Last Admin: 05/28/18 05:34 Dose: 10 ml Medical Necessity - Tobacco Use Smoking Status: Current some day smoker Tobacco Use: Non-smoker Assessment/Plan All Active Problems (Last Reviewed 05/16/18 @ 20:50 by Sohan Waddell MD) Acute kidney injury (Acute) Hypokalemia (Acute) Abnormal EKG (Acute) Hyponatremia (Acute) Nausea vomiting and diarrhea (Acute) Severe dehydration (Acute) Cardiac arrest (Acute) Pulmonary embolism (Acute) Periodontal disease (Acute) Nausea & vomiting (Acute) Headache (Acute) Encounter for adjustment or management of vascular access device (Acute) Small cell lung cancer (Acute) Regional lymph node metastasis present (Acute) Lung metastasis (Acute) 52-year-old female with past medical history of small cell lung cancer status on immunotherapy, COPD, chronic smoker who was admitted with hypotension and has since been managed in the ICU. 1. Hypovolemic shock due to dehydration, possible adrenal insufficiency, resolved, on maintenance IV fluids. 2. Intractable nausea, vomiting, resolved, 3. Diarrhea, persistent, likely secondary to colitis, likely possible of Opdivo side effect, stool lactoferrin positive, stool for enteric panel negative, on Imodium prn, will continue to monitor. 4. Hypokalemia, K is 2.9, will replace IV and po, labs in am 5. Acute kidney injury secondary to dehydration, resolved 6. Hyponatremia, acute, hypovolemic, resolved 7. Non-anion gap metabolic acidosis secondary to acute diarrhea, persistent, will continue on sodium bicarbonate x 24 hours 8. COPD, not in acute exacerbation, stable, on room air 9. History of small cell lung cancer, on immunotherapy 10. DVT prophylaxis with Lovenox subcu 11. Disposition: Waiting on SNF Code Visit Inpatient E&M: 46090 Subs Hosp L2
[2018-05-31 16:24] LABS: Potassium 3.3 mmol/L (3.5-5.1)
--- NOTE | 2018-05-31 20:46 | NURSING ---
Patient requested to talk to charge nurse. Entered patient's room, she voices frustration with warm thickened water. She said she asked for cold water, explained to her it would still need to be thickened and she verbalizes understanding. Also, she said she would give the thickened water just one more day. Explained to her this would be addressed with day shift charge nurse in the morning, that would have speech therapy address need for thickened liquids, after much discussion she agreed for one more day.
[2018-05-31] MEDS: diazePAM 5 MG Tablet 10 MG PO (21:11)
[2018-05-31] MEDS: Mirtazapine 30 MG Tablet PO (21:11)
[2018-06-01] VITALS (11 sets, daily range): BP systolic 96–122; BP diastolic 64–85; PULSE 84–101; RESP 16–18; TEMP 36.4–36.6; O2SAT 99–100
[2018-06-01] MEDS: Potassium Chloride 40 MEQ in Dext 5%-0.45% NS 1,000 ML 75 MEQ IV ×2 (00:45→22:34)
[2018-06-01] MEDS: 0.9% NaCl Peripheral Flush Adult/Peds IV (05:27)
[2018-06-01 05:57] LABS: Anion Gap 8 (5-15); BUN 8 mg/dL (7-18); BUN/Creat Ratio 9.4 RATIO (10-20); Calcium,Total 7.2 mg/dL (8.5-10.1); Chloride 115 mmol/L (98-107); Creatinine, Serum 0.85 mg/dL (0.55-1.02); EST Glomerular Filtration Rate 74 mL/min (>60); Est Glom Filt Rate - Afr Amer 90 mL/min (>60); Estimated Creatinine Clearance 61.99 ml/min; Glucose 97 mg/dL (74-106); Potassium 3.1 mmol/L (3.5-5.1); Sodium Level 141 mmol/L (136-145)
[2018-06-01] MEDS: predniSONE 20 MG Tablet PO (07:41)
[2018-06-01] MEDS: Menthol/Lanolin/Calamine/Znox 113 GM Tube 1 APPLIC TOPICAL ×4 (09:35→21:04)
[2018-06-01] MEDS: Enoxaparin 40 MG/0.4 ML Syringe SC (09:35)
[2018-06-01] MEDS: Sodium Bicarbonate 650 MG Tablet PO ×4 (09:36→21:03)
--- NOTE | 2018-06-01 10:17 | PCM.PROGNOTE ---
Patient Problems: Active and Suspected Problems (Last Reviewed 05/16/18 @ 20:50 by Sohan Waddell MD) Severe dehydration (Acute) Cardiac arrest (Acute) Subjective: Patient did okay overnight. Patient did receive significant potassium repletion yesterday and tolerated well. Patient does continue to have some diarrhea. Patient not very interactive with me this morning on my evaluation, but has been hemodynamically stable on room air per nursing staff. Patient has had intermittent periods of confusion reported. - Physical Exam General: Alert, Cooperative, No apparent distress, - - Not answering questions on orientation. Appears older than stated age. HEENT: Atraumatic, PERRLA, EOMI, Normocephalic, - - No scleral icterus or injection noted. Oral: Moist Mucosa, No Gingival or Mucosal Lesions/ Ulcerations Neck: Supple, No JVD, No Nodes, Trachea Midline Lungs: No rhonchi, No wheeze, No rales, Diminished, - - Symmetric expansion. No dullness to percussion. Cardiovascular: Regular rate, Regular Rhythm, Normal S1, Normal S2, No murmurs, No rub noted, No Gallop Abdomen: Bowel Sounds Present, Soft, Non Tender, Non-Distended Extremities: No cyanosis, No edema, Clubbing Skin: - - Desquamation appears to be improving Musculoskeletal: No Tenderness to Palpation of Joints or Extremities Lymphatic: No Cervical, Supraclavicular, or Inguinal Adenopathy Neurological: Cranial nerves II-XII grossly intact, Neuro grossly intact, Motor Exam 5/5 strength throughout Psych/Mental Status: Flat Affect Vital Signs Temp Pulse Resp BP Pulse Ox 36.5 C L 94 18 122/74 H 100 06/01/18 09:32 06/01/18 09:32 06/01/18 09:32 06/01/18 09:32 06/01/18 09:32 Oxygen Flow Rate (L/min) 2 Oxygen Delivery Method Room Air Weight: 50.9 kg Body Mass Index (BMI) 18.3 Intake and Output for Last 24 Hours 05/30/18 05/31/18 06/01/18 23:59 23:59 23:59 Intake Total 2802 / 2802 1969.9 / 1969.9 1720 / 1720 Output Total 3225 / 3225 2375 / 2375 1200 / 1200 Balance -423 / -423 -405.1 / -405.1 520 / 520 Microbiology Past 72 Hours 05/27/18 10:35 Blood Culture - Preliminary Blood Culture (Wb) - Left Wrist No growth in 48 hours. 05/27/18 09:25 Blood Culture - Preliminary Blood Culture (Wb) - Central Line No growth in 48 hours. 05/27/18 10:35 Urine Culture - Final Urine Catheter - Mcdermott Escherichia coli Pseudomonas aeroginosa Laboratory Tests Past 24 Hrs 05/31/18 05/31/18 06/01/18 05:30 16:05 05:18 [address] Review Reviewed Sodium 141 Potassium 3.3 L 3.1 L Chloride 115 H Carbon Dioxide 18.0 L Anion Gap 8 BUN 8 Creatinine 0.85 Estim Creat Clear Calc 61.99 Est GFR (MDRD) Af Amer 90 Est GFR (MDRD) Non-Af 74 BUN/Creatinine Ratio 9.4 L Glucose 97 Calcium 7.2 L Medical Necessity - Tobacco Use Smoking Status: Current some day smoker Tobacco Use: Non-smoker Assessment/Plan All Active Problems (Last Reviewed 05/16/18 @ 20:50 by Sohan Waddell MD) Acute kidney injury (Acute) Hypokalemia (Acute) Abnormal EKG (Acute) Hyponatremia (Acute) Nausea vomiting and diarrhea (Acute) Severe dehydration (Acute) Cardiac arrest (Acute) Pulmonary embolism (Acute) Periodontal disease (Acute) Nausea & vomiting (Acute) Headache (Acute) Encounter for adjustment or management of vascular access device (Acute) Small cell lung cancer (Acute) Regional lymph node metastasis present (Acute) Lung metastasis (Acute) RECOMMENDATIONS: 1. Attempt transition to prednisone therapy 2. Continue Imodium and p.o. bicarbonate 3. Aggressive potassium repletion 4. Okay to discharge from a pulmonary perspective on prednisone therapy 5. Patient should not be discontinued off of antibiotics until seen by endocrinology as an outpatient IMPRESSIONS: 1. Relative adrenal insufficiency with hypovolemic shock Patient has responded well to IV fluids. However, patient's pressor requirements improved rapidly after administration of stress dose steroids. Will decrease stress dose steroids, but patient will need to be on a slow taper. Patient would benefit from outpatient evaluation by endocrinology. Will attempt transition to prednisone therapy. Continue bicarbonate by mouth to compensate for GI losses. Stool O&P is still pending. Clinical suspicion for loss of potassium secondary to adrenal insufficiency and diarrhea. 2. Acute kidney injury likely secondary to prerenal azotemia Improving with volume expansion. We will continue to monitor urine output. No indication for renal replacement therapy at this time. 3. Hyponatremia/hypokalemia/non-anion gap metabolic acidosis Likely secondary to intravascular volume depletion from gastrointestinal losses. Patient tolerating modified diet. Aggressive potassium repletion has been ordered 4. Small cell lung cancer of the right lung The patient was diagnosed with limited stage small cell lung cancer in 2014. She underwent concurrent chemoradiation wtih cisplatin/etoposide and completed prophylactic intracranial irradiation. She presented with local recurrent disease in 2016. Biopsy of LIMA on 04/17/17 was positive for small cell carcinoma. She has since progressed through 3 additional cycles of cisplatin/etoposide, topotecan and weekly paclitaxel. Began nivolumab and ipilimumab on 03/03/18 under the care of Dr. Cabral at [facility]. 5. Severe protein calorie malnutrition/debility/recurrent hypoglycemia/bipolar/minimal tobacco abuse Complicates care, management, recovery and prognosis. Continue nicotine replacement therapy. Nutrition is following. Code Visit Inpatient E&M: 74537 Subs Hosp L3
[2018-06-01 12:08] LABS: Magnesium 2.1 mg/dL (1.6-2.6)
--- NOTE | 2018-06-01 14:08 | CASEMGMT ---
Addendum entered by Josy Feliz 06/01/18 14:33: Physician plans on sending patient to SNF tomorrow. SW notified Geovanna at [facility]. SW also notified patient that she was approved and will probably go tomorrow. She asked about her appts at [facility]. SW told her that she needs [facility]t. She thanked SW. Josy WOODWARD Original Note: Received insurance approval for patient to go to [facility]. Physician notified. Josy WOODWARD
[2018-06-01] MEDS: diazePAM 5 MG Tablet 10 MG PO (14:27)
--- NOTE | 2018-06-01 14:31 | NURSING ---
PT REQUESTING THIN LIQUIDS. EXPLAINED RISKS. LET MD KNOW. PT REFUSING THICKENED LIQUIDS.
--- NOTE | 2018-06-01 15:47 | PCM.PN.HOSP ---
Patient Problems: Active and Suspected Problems (Last Reviewed 05/16/18 @ 20:50 by Sohan Waddell MD) Severe dehydration (Acute) Cardiac arrest (Acute) Subjective: Patient was seen and examined. Has persistent diarrhea, feels very frustrated, feels like she wants to give up. Denies any depression or suicidal ideation or homicidal ideation. Patient is upset that she has to drink thickened liquids. Denies dizziness or chest pain or palpitations Objective: Physical exam: General: Alert, Cooperative,pale, cachetic, on room air. HEENT: Atraumatic, PERRLA, EOMI, Normocephalic Neck: Supple Lungs: Clear to auscultation, Normal air movement Cardiovascular: Regular rate, Regular Rhythm, Normal S1, Normal S2, No murmurs Abdomen: Bowel Sounds Present, Soft, Tenderness over epigastric region, Non-Distended, No Hepato-splenomegaly Extremities: No edema Skin: No rashes, No breakdown Musculoskeletal: No Tenderness to Palpation of Joints or Extremities Lymphatic: No Cervical, Supraclavicular, or Inguinal Adenopathy Neurological: Cranial nerves II-XII grossly intact, Neuro grossly intact Psych/Mental Status: Normal Affect, Appropriate Vitals/I&O's: Vital Signs Temp Pulse Resp BP Pulse Ox 97.7 F L 97 18 122/74 H 100 06/01/18 09:32 06/01/18 15:06 06/01/18 14:28 06/01/18 09:32 06/01/18 09:32 Oxygen Flow Rate (L/min) 2 Oxygen Delivery Method Room Air Weight: 50.9 kg Body Mass Index (BMI) 18.3 Intake and Output for Last 24 Hours 05/30/18 05/31/18 06/01/18 23:59 23:59 23:59 Intake Total 2802 / 2802 1969.9 / 1969.9 2320 / 2320 Output Total 3225 / 3225 2375 / 2375 1200 / 1200 Balance -423 / -423 -405.1 / -405.1 1120 / 1120 Microbiology Past 72 Hours 05/27/18 09:25 Blood Culture (Wb) - Central Line Blood Culture - Final No growth in 5 days. 05/27/18 10:35 Blood Culture (Wb) - Left Wrist Blood Culture - Final No growth in 5 days. Laboratory Results 05/31/18 16:05: Potassium 3.3 L 06/01/18 05:18: Sodium 141, Potassium 3.1 L, Chloride 115 H, Carbon Dioxide 18.0 L, Anion Gap 8, BUN 8, Creatinine 0.85, Estim Creat Clear Calc 61.99, Est GFR (MDRD) Af Amer 90, Est GFR (MDRD) Non-Af 74, BUN/Creatinine Ratio 9.4 L, Glucose 97, Calcium 7.2 L 06/01/18 05:18: Magnesium 2.1 Current Medications Acetaminophen (Tylenol) 650 mg PO Q6H PRN PRN PRN Reason: Fever >101 Last Admin: 05/27/18 05:34 Dose: 650 mg Calamine/Phenol (Calmoseptine Ointment) 1 applic TOPICAL 4X/DAY [facility]; Protocol Last Admin: 06/01/18 14:21 Dose: 1 applicatio Diazepam (Valium) 10 mg PO BID PRN PRN PRN Reason: ANXIETY Last Admin: 06/01/18 14:27 Dose: 10 mg Enoxaparin Sodium (Lovenox) 40 mg SC DAILY@1000 [facility]CR[facility] Last Admin: 06/01/18 09:35 Dose: 40 mg Heparin Sodium (Beef Lung) () 50 units IV UD PRN PRN Reason: HEPARIN FLUSH Potassium Chloride 40 meq/ (Dextrose/Sodium Chloride) 1,020 mls @ 75 mls/hr IV .[id number] [facility] Last Admin: 06/01/18 00:45 Dose: 75 mls/hr Loperamide HCl (Imodium) 2 mg PO Q4H PRN PRN PRN Reason: Diarrhea Last Admin: 05/30/18 22:08 Dose: 2 mg Magnesium Hydroxide (Milk Of Magnesia) 30 ml PO DAILY PRN PRN PRN Reason: Constipation Mirtazapine (Remeron) 30 mg PO HS [facility] Last Admin: 05/31/18 21:11 Dose: 30 mg Nicotine (Nicoderm Cq (Pbkc)) 21 mg TRANSDERM. DAILY [facility] Last Admin: 06/01/18 09:35 Dose: 21 mg Ondansetron HCl (Zofran) 8 mg IV Q8H PRN PRN PRN Reason: NAUSEA/VOMITING Oxycodone HCl (Oxyir) 5 mg PO Q6H PRN PRN PRN Reason: PAIN Potassium Chloride (K-Dur) 40 meq PO BIDCM [facility] Last Admin: 06/01/18 07:41 Dose: 40 meq Prednisone () 20 mg PO DAILY@0800 [facility] Last Admin: 06/01/18 07:41 Dose: 20 mg Sodium Bicarbonate (Sodium Bicarbonate) 650 mg PO 4X/DAY [facility] Last Admin: 06/01/18 14:22 Dose: 650 mg Sodium Chloride () 5 - 30 ml IV UD PRN PRN Reason: SALINE FLUSH Last Admin: 06/01/18 05:27 Dose: 20 ml Sodium Chloride () 10 ml IV UD PRN PRN Reason: VAD FLUSH Last Admin: 05/28/18 05:34 Dose: 10 ml Medical Necessity - Tobacco Use Smoking Status: Current some day smoker Tobacco Use: Non-smoker Assessment/Plan All Active Problems (Last Reviewed 05/16/18 @ 20:50 by Sohan Waddell MD) Acute kidney injury (Acute) Hypokalemia (Acute) Abnormal EKG (Acute) Hyponatremia (Acute) Nausea vomiting and diarrhea (Acute) Severe dehydration (Acute) Cardiac arrest (Acute) Pulmonary embolism (Acute) Periodontal disease (Acute) Nausea & vomiting (Acute) Headache (Acute) Encounter for adjustment or management of vascular access device (Acute) Small cell lung cancer (Acute) Regional lymph node metastasis present (Acute) Lung metastasis (Acute) 52-year-old female with past medical history of small cell lung cancer status on immunotherapy, COPD, chronic smoker who was admitted with hypotension and has since been managed in the ICU. 1. Hypovolemic shock due to dehydration, resolved, on maintenance IV fluids, 2. Possible adrenal insufficiency, started on prednisone, will need endocrinology follow-up 3. Intractable nausea and vomiting, resolved, 4. Diarrhea, persistent, likely secondary to colitis, likely possible of Opdivo side effect, stool lactoferrin positive, stool for enteric panel negative, on Imodium prn, will continue to monitor. 5. Hypokalemia, K 3.1, will replace IV and po, labs in am 6. Acute kidney injury secondary to dehydration, resolved 7. Hyponatremia, acute, hypovolemic, resolved 8. Non-anion gap metabolic acidosis secondary to acute diarrhea, persistent, will continue on sodium bicarbonate x 24 hours 9. COPD, not in acute exacerbation, stable, on room air 10. History of small cell lung cancer, on immunotherapy 11. DVT prophylaxis with Lovenox subcu 12. Disposition: Possible discharge in the next 24-48 hours Code Visit Inpatient E&M: 34168 Subs Hosp L2
--- NOTE | 2018-06-01 15:51 | PN_ITS ---
Patient Problems: Active and Suspected Problems (Last Reviewed 05/16/18 @ 20:50 by Sohan Waddell MD) Severe dehydration (Acute) Cardiac arrest (Acute) Subjective: Patient was seen and examined. Has persistent diarrhea, feels very frustrated, feels like she wants to give up. Denies any depression or suicidal ideation or homicidal ideation. Patient is upset that she has to drink thickened liquids. Denies dizziness or chest pain or palpitations Objective: Physical exam: General: Alert, Cooperative,pale, cachetic, on room air. HEENT: Atraumatic, PERRLA, EOMI, Normocephalic Neck: Supple Lungs: Clear to auscultation, Normal air movement Cardiovascular: Regular rate, Regular Rhythm, Normal S1, Normal S2, No murmurs Abdomen: Bowel Sounds Present, Soft, Tenderness over epigastric region, Non- Distended, No Hepato-splenomegaly Extremities: No edema Skin: No rashes, No breakdown Musculoskeletal: No Tenderness to Palpation of Joints or Extremities Lymphatic: No Cervical, Supraclavicular, or Inguinal Adenopathy Neurological: Cranial nerves II-XII grossly intact, Neuro grossly intact Psych/Mental Status: Normal Affect, Appropriate Vitals/I&O's: Vital Signs Temp Pulse Resp BP Pulse Ox 97.7 F L 97 18 122/74 H 100 06/01/18 09:32 06/01/18 15:06 06/01/18 14:28 06/01/18 09:32 06/01/18 09:32 Oxygen Flow Rate (L/min) 2 Oxygen Delivery Method Room Air Weight: 50.9 kg Body Mass Index (BMI) 18.3 Intake and Output for Last 24 Hours 05/30/18 05/31/18 06/01/18 23:59 23:59 23:59 Intake Total 2802 / 2802 1969.9 / 1969.9 2320 / 2320 Output Total 3225 / 3225 2375 / 2375 1200 / 1200 Balance -423 / -423 -405.1 / -405.1 1120 / 1120 Microbiology Past 72 Hours 05/27/18 09:25 Blood Culture (Wb) - Central Line Blood Culture - Final No growth in 5 days. 05/27/18 10:35 Blood Culture (Wb) - Left Wrist Blood Culture - Final No growth in 5 days. Laboratory Results 05/31/18 16:05: Potassium 3.3 L 06/01/18 05:18: Sodium 141, Potassium 3.1 L, Chloride 115 H, Carbon Dioxide 18.0 L, Anion Gap 8, BUN 8, Creatinine 0.85, Estim Creat Clear Calc 61.99, Est GFR (MDRD) Af Amer 90, Est GFR (MDRD) Non-Af 74, BUN/Creatinine Ratio 9.4 L, Glucose 97, Calcium 7.2 L 06/01/18 05:18: Magnesium 2.1 Current Medications Acetaminophen (Tylenol) 650 mg PO Q6H PRN PRN PRN Reason: Fever >101 Last Admin: 05/27/18 05:34 Dose: 650 mg Calamine/Phenol (Calmoseptine Ointment) 1 applic TOPICAL 4X/DAY [facility]; Protocol Last Admin: 06/01/18 14:21 Dose: 1 applicatio Diazepam (Valium) 10 mg PO BID PRN PRN PRN Reason: ANXIETY Last Admin: 06/01/18 14:27 Dose: 10 mg Enoxaparin Sodium (Lovenox) 40 mg SC DAILY@1000 [facility] Last Admin: 06/01/18 09:35 Dose: 40 mg Heparin Sodium (Beef Lung) () 50 units IV UD PRN PRN Reason: HEPARIN FLUSH Potassium Chloride 40 meq/ (Dextrose/Sodium Chloride) 1,020 mls @ 75 mls/hr IV .[id number] [facility] Last Admin: 06/01/18 00:45 Dose: 75 mls/hr Loperamide HCl (Imodium) 2 mg PO Q4H PRN PRN PRN Reason: Diarrhea Last Admin: 05/30/18 22:08 Dose: 2 mg Magnesium Hydroxide (Milk Of Magnesia) 30 ml PO DAILY PRN PRN PRN Reason: Constipation Mirtazapine (Remeron) 30 mg PO HS [facility] Last Admin: 05/31/18 21:11 Dose: 30 mg Nicotine (Nicoderm Cq (Pbkc)) 21 mg TRANSDERM. DAILY [facility] Last Admin: 06/01/18 09:35 Dose: 21 mg Ondansetron HCl (Zofran) 8 mg IV Q8H PRN PRN PRN Reason: NAUSEA/VOMITING Oxycodone HCl (Oxyir) 5 mg PO Q6H PRN PRN PRN Reason: PAIN Potassium Chloride (K-Dur) 40 meq PO BIDCM [facility] Last Admin: 06/01/18 07:41 Dose: 40 meq Prednisone () 20 mg PO DAILY@0800 [facility] Last Admin: 06/01/18 07:41 Dose: 20 mg Sodium Bicarbonate (Sodium Bicarbonate) 650 mg PO 4X/DAY [facility] Last Admin: 06/01/18 14:22 Dose: 650 mg Sodium Chloride () 5 - 30 ml IV UD PRN PRN Reason: SALINE FLUSH Last Admin: 06/01/18 05:27 Dose: 20 ml Sodium Chloride () 10 ml IV UD PRN PRN Reason: VAD FLUSH Last Admin: 05/28/18 05:34 Dose: 10 ml Medical Necessity - Tobacco Use Smoking Status: Current some day smoker Tobacco Use: Non-smoker Assessment/Plan All Active Problems (Last Reviewed 05/16/18 @ 20:50 by Sohan Waddell MD) Acute kidney injury (Acute) Hypokalemia (Acute) Abnormal EKG (Acute) Hyponatremia (Acute) Nausea vomiting and diarrhea (Acute) Severe dehydration (Acute) Cardiac arrest (Acute) Pulmonary embolism (Acute) Periodontal disease (Acute) Nausea & vomiting (Acute) Headache (Acute) Encounter for adjustment or management of vascular access device (Acute) Small cell lung cancer (Acute) Regional lymph node metastasis present (Acute) Lung metastasis (Acute) 52-year-old female with past medical history of small cell lung cancer status on immunotherapy, COPD, chronic smoker who was admitted with hypotension and has since been managed in the ICU. 1. Hypovolemic shock due to dehydration, resolved, on maintenance IV fluids, 2. Possible adrenal insufficiency, started on prednisone, will need endocrinology follow-up 3. Intractable nausea and vomiting, resolved, 4. Diarrhea, persistent, likely secondary to colitis, likely possible of Opdivo side effect, stool lactoferrin positive, stool for enteric panel negative, on Imodium prn, will continue to monitor. 5. Hypokalemia, K 3.1, will replace IV and po, labs in am 6. Acute kidney injury secondary to dehydration, resolved 7. Hyponatremia, acute, hypovolemic, resolved 8. Non-anion gap metabolic acidosis secondary to acute diarrhea, persistent, will continue on sodium bicarbonate x 24 hours 9. COPD, not in acute exacerbation, stable, on room air 10. History of small cell lung cancer, on immunotherapy 11. DVT prophylaxis with Lovenox subcu 12. Disposition: Possible discharge in the next 24-48 hours Code Visit Inpatient E&M: 78355 Subs Hosp L2
[2018-06-01] MEDS: Mirtazapine 30 MG Tablet PO (21:03)
[2018-06-02 02:54] VITALS: PULSE 85
[2018-06-02 03:10] VITALS: BP 130/83; PULSE 94; RESP 16; TEMP 36.8; O2SAT 100
[2018-06-02] MEDS: Loperamide 2 MG Capsule PO (03:15)
[2018-06-02] MEDS: 0.9% NaCl Peripheral Flush Adult/Peds IV ×2 (05:00→15:37)
[2018-06-02 05:26] LABS: Albumin, Serum 2.4 g/dL (3.2-5.0); BUN 7 mg/dL (7-18); BUN/Creat Ratio 8.1 RATIO (10-20); Calcium,Total 7.9 mg/dL (8.5-10.1); Chloride 115 mmol/L (98-107); Creatinine, Serum 0.86 mg/dL (0.55-1.02); EST Glomerular Filtration Rate 73 mL/min (>60); Est Glom Filt Rate - Afr Amer 88 mL/min (>60); Estimated Creatinine Clearance 60.79 ml/min; Glucose 85 mg/dL (74-106); Phosphorus 2.6 mg/dL (2.5-4.9); Potassium 3.1 mmol/L (3.5-5.1); Sodium Level 140 mmol/L (136-145)
[2018-06-02 07:00] VITALS: PULSE 84
--- NOTE | 2018-06-02 08:18 | PCM.PROGNOTE ---
Patient Problems: Active and Suspected Problems (Last Reviewed 05/16/18 @ 20:50 by Sohan Waddell MD) Severe dehydration (Acute) Cardiac arrest (Acute) Subjective: Patient did okay overnight. Patient does report continued diarrhea, but no other symptomatology is reported. Patient denies any significant pain at this time. Patient continues to be well on room air. - Physical Exam General: Alert, Oriented x3, Cooperative, No apparent distress, - - Very flat affect, but more interactive today. Appears older than stated age. HEENT: Atraumatic, PERRLA, EOMI, Normocephalic, - - Some temporal wasting noted. No scleral icterus or injection noted. Oral: Moist Mucosa, No Gingival or Mucosal Lesions/ Ulcerations, - - Dentures in place. Neck: Supple, No JVD, No Nodes, Trachea Midline Lungs: No rhonchi, No wheeze, No rales, Diminished, - - Symmetric expansion. No dullness to percussion. Cardiovascular: Regular rate, Regular Rhythm, Normal S1, Normal S2, No murmurs, No rub noted, No Gallop Abdomen: Bowel Sounds Present, Soft, Non Tender, Non-Distended Extremities: No cyanosis, No edema, Capillary Refill Less than 3 Seconds, Clubbing Skin: - - No significant change compared to previous Musculoskeletal: No Tenderness to Palpation of Joints or Extremities, Muscle Wasting Lymphatic: No Cervical, Supraclavicular, or Inguinal Adenopathy Neurological: Cranial nerves II-XII grossly intact, Neuro grossly intact Psych/Mental Status: Flat Affect, Restless Vital Signs Temp Pulse Resp BP Pulse Ox 36.8 C 84 16 130/83 H 100 06/02/18 03:10 06/02/18 07:00 06/02/18 03:10 06/02/18 03:10 06/02/18 03:10 Oxygen Flow Rate (L/min) 2 Oxygen Delivery Method Room Air Weight: 53.569 kg Body Mass Index (BMI) 18.3 Intake and Output for Last 24 Hours 05/31/18 06/01/18 06/02/18 23:59 23:59 23:59 Intake Total 1969.9 / 1969.9 3393 / 3393 1384 / 1384 Output Total 2375 / 2375 1200 / 1200 Balance -405.1 / -405.1 2193 / 2193 1384 / 1384 Microbiology Past 72 Hours 05/27/18 09:25 Blood Culture - Final Blood Culture (Wb) - Central Line No growth in 5 days. 05/27/18 10:35 Blood Culture - Final Blood Culture (Wb) - Left Wrist No growth in 5 days. Laboratory Tests Past 24 Hrs 06/01/18 06/01/18 06/02/18 05:18 17:55 05:00 Sodium 140 Potassium 4.0 3.1 L Chloride 115 H Carbon Dioxide 16.0 L BUN 7 Creatinine 0.86 Estim Creat Clear Calc 60.79 Est GFR (MDRD) Af Amer 88 Est GFR (MDRD) Non-Af 73 BUN/Creatinine Ratio 8.1 L Glucose 85 Calcium 7.9 L Phosphorus 2.6 Magnesium 2.1 Albumin 2.4 L Medical Necessity - Tobacco Use Smoking Status: Current some day smoker Tobacco Use: Non-smoker Assessment/Plan All Active Problems (Last Reviewed 05/16/18 @ 20:50 by Sohan Waddell MD) Acute kidney injury (Acute) Hypokalemia (Acute) Abnormal EKG (Acute) Hyponatremia (Acute) Nausea vomiting and diarrhea (Acute) Severe dehydration (Acute) Cardiac arrest (Acute) Pulmonary embolism (Acute) Periodontal disease (Acute) Nausea & vomiting (Acute) Headache (Acute) Encounter for adjustment or management of vascular access device (Acute) Small cell lung cancer (Acute) Regional lymph node metastasis present (Acute) Lung metastasis (Acute) RECOMMENDATIONS: 1. Continue prednisone therapy until seen by endocrinology 2. Continue Imodium and p.o. bicarbonate 3. Aggressive potassium repletion 4. Okay to discharge from a pulmonary perspective on prednisone therapy 5. Patient should not be discontinued off of prednisone until seen by endocrinology as an outpatient IMPRESSIONS: 1. Relative adrenal insufficiency with hypovolemic shock Patient has responded well to IV fluids. However, patient's pressor requirements improved rapidly after administration of stress dose steroids. Will decrease stress dose steroids, but patient will need to be on a slow taper. Patient would benefit from outpatient evaluation by endocrinology. Patient appears to be absorbing enough prednisone to avoid adrenal crisis at this time. Continue bicarbonate by mouth to compensate for GI losses. Clinical suspicion for loss of potassium secondary to adrenal insufficiency and diarrhea. 2. Acute kidney injury likely secondary to prerenal azotemia Resolved. Improving with volume expansion. We will continue to monitor urine output. No indication for renal replacement therapy at this time. 3. Hyponatremia/hypokalemia/non-anion gap metabolic acidosis Likely secondary to intravascular volume depletion from gastrointestinal losses. Patient tolerating modified diet. Aggressive potassium repletion has been ordered 4. Small cell lung cancer of the right lung The patient was diagnosed with limited stage small cell lung cancer in 2014. She underwent concurrent chemoradiation wtih cisplatin/etoposide and completed prophylactic intracranial irradiation. She presented with local recurrent disease in 2017. Biopsy of LIMA on 04/17/17 was positive for small cell carcinoma. She has since progressed through 3 additional cycles of cisplatin/etoposide, topotecan and weekly paclitaxel. Began nivolumab and ipilimumab on 03/03/18 under the care of Dr. Cabral at [facility]. 5. Severe protein calorie malnutrition/debility/recurrent hypoglycemia/bipolar/minimal tobacco abuse Complicates care, management, recovery and prognosis. Continue nicotine replacement therapy. Nutrition is following. Code Visit Inpatient E&M: 20568 Subs Hosp L2
[2018-06-02 09:01] VITALS: BP 116/73; PULSE 64; RESP 16; TEMP 37; O2SAT 98
[2018-06-02] MEDS: Menthol/Lanolin/Calamine/Znox 113 GM Tube 1 APPLIC TOPICAL ×2 (09:07→14:20)
[2018-06-02] MEDS: Enoxaparin 40 MG/0.4 ML Syringe SC (09:07)
[2018-06-02] MEDS: Sodium Bicarbonate 650 MG Tablet PO ×2 (09:08→14:21)
[2018-06-02] MEDS: predniSONE 20 MG Tablet PO (09:12)
[2018-06-02 11:41] VITALS: PULSE 99
--- NOTE | 2018-06-02 11:44 | PCM.TXEXTCAR ---
- Diet 05/28/18 08:40 Diet: Regular Diet Dietary Modifications:: Mechanical Soft Diet Is pt able to select menu?: Yes Diet Comments: please add magic cup (either pudding or ice cream) w/each meal; supervision - Routine Orders/Code Status Routine Lab Work: CBC - within 1 week, BMP - on 06/03/18 - Wound(s) perineum/buttocks Wound Type: excoriation - Therapies Physical Therapy: Eval and Treat Occupational Therapy: Eval and Treat Speech Therapy: Eval and Treat - Allergies/Procedures Done in Hospital Allergies/Adverse Reactions: Allergies No Known Allergies Allergy (Verified 05/26/18 12:01) Procedures: None - Type of Care/Length of Stay Estimated LOS: Convalescent Care Less Than 30 days Type of Care Needed: Skilled Rehab Potential: Fair Prognosis: Fair - Additional Orders/Day of Discharge Additional Orders: Patient should be on prednsione until she sees an healthcare or medical in [facility] within 2 weeks for possible adrenal insufficiency. Continue to encourage hydration. May need daily BMP for a while to catch up with severe hypokalemia. Day of Discharge: 06/02/18 - Dietary and Speech Recommendations Dietitian Recommendations/Changes: Will d/c ONS medpass d/t pt refusals - Follow Up Care Primary Care Physician: Fausto Iverson DO [Primary Care Provider] - Please follow up with your Primary Care Physician in: within 2 weeks of discharge When: Oncologist in [facility] as scheduled When: Follow-up with healthcare or medical in [facility] within 2 weeks
--- NOTE | 2018-06-02 11:48 | TREXTCAR_ITS ---
- Diet 05/28/18 08:40 Diet: Regular Diet Dietary Modifications:: Mechanical Soft Diet Is pt able to select menu?: Yes Diet Comments: please add magic cup (either pudding or ice cream) w/each meal; supervision - Routine Orders/Code Status Routine Lab Work: CBC - within 1 week, BMP - on 06/03/18 - Wound(s) perineum/buttocks Wound Type: excoriation - Therapies Physical Therapy: Eval and Treat Occupational Therapy: Eval and Treat Speech Therapy: Eval and Treat - Allergies/Procedures Done in Hospital Allergies/Adverse Reactions: Allergies No Known Allergies Allergy (Verified 05/26/18 12:01) Procedures: None - Type of Care/Length of Stay Estimated LOS: Convalescent Care Less Than 30 days Type of Care Needed: Skilled Rehab Potential: Fair Prognosis: Fair - Additional Orders/Day of Discharge Additional Orders: Patient should be on prednsione until she sees an project facilitator in [facility] within 2 weeks for possible adrenal insufficiency. Continue to encourage hydration. May need daily BMP for a while to catch up with severe hypokalemia. Day of Discharge: 06/02/18 - Dietary and Speech Recommendations Dietitian Recommendations/Changes: Will d/c ONS medpass d/t pt refusals - Follow Up Care Primary Care Physician: Fausto Iverson DO [Primary Care Provider] - Please follow up with your Primary Care Physician in: within 2 weeks of discharge When: Oncologist in [facility] as scheduled When: Follow-up with project facilitator in [facility] within 2 weeks
--- NOTE | 2018-06-02 11:48 | PCM.DC.SUM ---
Discharge Date and Diagnosis Date of Admission: 05/26/18 Date of Discharge: 06/02/18 - Primary Discharge Diagnosis Active and Suspected Problems (Last Reviewed 05/16/18 @ 20:50 by Sohan Waddell MD) Severe dehydration (Acute) Hypovolemic shock Possible adrenal insufficiency Intractable nausea and vomiting Possible Immunotherapy side-effect Diarrhea secondary to non-infectious colitis Non-gap metabolic acidosis Severe hypokalemia Acute kidney injury - Secondary Discharge Diagnosis Chronic Problems (Last Reviewed 05/16/18 @ 20:50 by Sohan Waddell MD) Bipolar affect, depressed (Chronic) Tobacco abuse (Chronic) Muscle spasm (Chronic) 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) Acid reflux disease (Chronic) Rotator cuff syndrome (Chronic) Adrenal nodule (Chronic) COPD (chronic obstructive pulmonary disease) (Chronic) Poor compliance with medication (Chronic) Left atrial thrombus (Chronic) Tobacco dependence (Chronic) PTSD (post-traumatic stress disorder) (Chronic) 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 Electronically Signed: Evens Ann MD at 17:56 EDT , Service support , Critical care Operations: None, cholecystecomy Procedures: None, Transesophageal Echo Summary of Care Provided: 52-year-old female with past medical history of small cell lung cancer status on immunotherapy, COPD, chronic smoker who was admitted with hypotension due to gastroenteritis, s/p immunotherapy for SCLC. She was initially managed with aggressive IV fluids in the ICU. Started on IV pressors when she continued to be hypotensive. Subsequently started on IV hydrocortisone for possible adrenal insufficiency. Stool studies were negative for C. diff, enteric panel was negative. Patient was later transitioned to the regular telemetry floor when hypotension improved. Her severe hypokalemia, hypomagnesemia was aggressively replaced IV and po. She continued to have diarrhea although improved with use of Imodium. She was transitioned to oral prednisone and will follow-up with endocrinology in [facility] as well as oncology. She had non-anion gap metabolic acidosis secondary to diarrhea that improved a little with oral bicarbonate. She was discharged on same and will follow-up with repeat BMP. Subjective: On the day of discharge, patient was seen and examined. Has had 3 BM the previous night and another 3 BM on the day of discharge. Denies fever, chills, SOB. She has been on regular diet, thin liquids; refusing to use thickner as recommended by Speech therapy. Objective: Physical exam: General: Alert, Cooperative,pale, cachetic, on room air. HEENT: Atraumatic, PERRLA, EOMI, Normocephalic Neck: Supple Lungs: Clear to auscultation, Normal air movement Cardiovascular: Regular rate, Regular Rhythm, Normal S1, Normal S2, No murmurs Abdomen: Bowel Sounds Present, Soft, Tenderness over epigastric region, Non-Distended, No Hepato-splenomegaly Extremities: No edema Skin: No rashes, No breakdown Musculoskeletal: No Tenderness to Palpation of Joints or Extremities Lymphatic: No Cervical, Supraclavicular, or Inguinal Adenopathy Neurological: Cranial nerves II-XII grossly intact, Neuro grossly intact Psych/Mental Status: Flat Affect - Physical Exam Vital Signs Temp Pulse Resp BP Pulse Ox 98.6 F 64 16 116/73 98 06/02/18 09:01 06/02/18 09:01 06/02/18 09:01 06/02/18 09:01 06/02/18 09:01 Oxygen Flow Rate (L/min) 2 Oxygen Delivery Method Room Air Weight: 53.569 kg Body Mass Index (BMI) 18.3 Intake and Output for Last 24 Hours 05/31/18 06/01/18 06/02/18 23:59 23:59 23:59 Intake Total 1969.9 / 1969.9 3393 / 3393 1384 / 1384 Output Total 2375 / 2375 1200 / 1200 Balance -405.1 / -405.1 2193 / 2193 1384 / 1384 Microbiology Past 72 Hours 05/27/18 09:25 Blood Culture - Final Blood Culture (Wb) - Central Line No growth in 5 days. 05/27/18 10:35 Blood Culture - Final Blood Culture (Wb) - Left Wrist No growth in 5 days. Laboratory Tests Past 24 Hrs 10/06/01/18 06/02/18 05:18 17:55 05:00 Sodium 140 Potassium 4.0 3.1 L Chloride 115 H Carbon Dioxide 16.0 L BUN 7 Creatinine 0.86 Estim Creat Clear Calc 60.79 Est GFR (MDRD) Af Amer 88 Est GFR (MDRD) Non-Af 73 BUN/Creatinine Ratio 8.1 L Glucose 85 Calcium 7.9 L Phosphorus 2.6 Magnesium 2.1 Albumin 2.4 L Discharge Diet: Low fat/ Low Cholesterol, 2000 mg Sodium Diet Discharge Activity: Return to Normal Activity Home Medications: Medications to take at Discharge Cyclobenzaprine HCl 5 mg PO TID PRN 05/16/18 Ondansetron [Zofran] 8 mg PO Q8H PRN PRN 05/16/18 Diphenoxylate HCl/Atropine [Lomotil 2.5-0.025 mg Tablet] 1 each PO Q4H PRN PRN 05/26/18 Nicotine [Nicotine Patch] 1 patch TD DAILY 05/26/18 Diazepam 10 mg PO BID PRN #10 tab 06/02/18 Heparin Pf Lock 10 units/ml 50 units IV UD PRN syringe 06/02/18 Loperamide [Imodium] 2 mg PO Q4H PRN PRN capsule 06/02/18 Mirtazapine [Remeron] 30 mg PO HS tablet 06/02/18 Oxycodone [Oxyir] 5 mg PO Q6H PRN PRN #20 tab 06/02/18 Potassium Chloride [K-Dur] 40 meq PO BIDCM tablet 06/02/18 Sodium Bicarbonate 650 mg PO TID #90 tablet 06/02/18 Following Prescrptions Were Given to Patient: Oxycodone [Oxyir] 5 mg PO Q6H PRN PRN #20 tab PRN Reason: Pain Diazepam 10 mg PO BID PRN #10 tab PRN Reason: Anxiety Sodium Bicarbonate 650 mg PO TID #90 tablet Primary Care Physician: Fausto Iverson DO [Primary Care Provider] - Please follow up with your Primary Care Physician in: within 2 weeks of discharge When: Oncologist in [facility] as scheduled When: Follow-up with instructional media services technician in [facility] within 2 weeks Disposition: Half-Way facility Minutes spent on discharge:: 40 Patient Condition:: Stable Medical Necessity - Tobacco Use Smoking Status: Current some day smoker Tobacco Use: Non-smoker Meaningful Use Info Meaningful Use Diagnoses (Choose all that apply): None applicable Code Visit Inpatient E&M: 42700 Disch Hosp
--- NOTE | 2018-06-02 12:12 | CHAPLAIN ---
Type of Pastoral Visit _x__ Initial Visit ___ Follow-up Visit ___ On-call Visit ___ General Patient Visit ___ Spiritual Assessment ___ Family Conference ___ Bereavement ___ Rapid Response ___ Code Blue ___ Other (describe below) Pastoral Care Referral From ___ Patient ___ Family ___ Nurse _x__ Physician ___ Dispensary Clerk ___ Retail Greeting Card Merchandiser ___ Other (describe below) Sacrament/Intervention _x__ Active listening ___ Anointing ___ Orthodox ___ Bereavement ___ Communion _x__ Leyda exploration ___ _x__ Life review _x__ Prayer ___ Reconciliation ___ Sacrament of Sick _x__ Supportive presence ___ Wedding ___ Other (describe below) Pastoral Comments this was a long visit as recommended by DR and agreed upon by patient; pt gives life story, family dynamics, and recent discovery of spiritual leyda; pt has family that live out of the area and a local daughter that is estranged; pt had a son that at age 17; pt says she has only two friends that she has for physical and emotional support and mostly faces her illness alone; pt declares that she is facing this terminal illness with Fight and Leyda; pt has recently been attending a advent that she finds very meaningful; this is after a long absence of personal leyda in her life; pt has plans for admission to [facility] for a time; pt welcomed inspirational reading booklets and prayer support from cigarette roller; pt was talkative and expressed appreciation for someone that she could speak with about her life;
--- NOTE | 2018-06-02 14:14 | CASEMGMT ---
Social Work Pt is ready for d/c today. Met with pt in room and she is agreeable to transfer to [facility] today and states she plans on her friend taking her to the SNF. While SW was in room pt called friend Brian and notified of d/c and requested he come pick pt up. Brian is agreeable to pick pt up at 3:30 today and transport to [facility]. Phone call to Geovanna at [facility] and notified of d/c today. Orders and [phone] faxed. Nursing notified of d/c time. Plan: [facility]
[2018-06-02 14:23] VITALS: BP 121/76; PULSE 106; RESP 16; TEMP 36.4; O2SAT 100
[2018-06-02] MEDS: diazePAM 5 MG Tablet 10 MG PO (14:28)
--- NOTE | 2018-06-02 15:31 | NURSING ---
Gave report to Valery from the [facility].
== END 2018-06-02 16:25 | disposition skilled nursing facility (03) | DRG 469 ==
LOC: ED 13:27 → ICU 13:39 → PCU 05-29 09:57
PROVIDERS: Hospitalist; Internal Medicine Critical Care Medicine; Admitting Provider Internal Medicine; Emergency Provider Emergency Medicine; Family Provider Family Medicine; PCP Family Medicine; Visit Provider Internal Medicine
DX: N17.9 Acute kidney failure, unspecified (principal); E87.6 Hypokalemia; E86.0 Dehydration; R57.1 Hypovolemic shock; Z68.1 Body mass index [BMI] 19.9 or less, adult; R64 Cachexia; E87.1 Hypo-osmolality and hyponatremia; J44.9 Chronic obstructive pulmonary disease, unspecified; C34.91 Malignant neoplasm of unspecified part of right bronchus or lung; Z72.0 Tobacco use; E87.2 Acidosis; C78.02 Secondary malignant neoplasm of left lung; F31.9 Bipolar disorder, unspecified; E27.40 Unspecified adrenocortical insufficiency; R11.2 Nausea with vomiting, unspecified; T45.1X5A Adverse effect of antineoplastic and immunosuppressive drugs, initial encounter; K52.9 Noninfective gastroenteritis and colitis, unspecified
CPT/HCPCS: 36591; 51702; 71045; 80048; 80053; 80069; 81001; 82533; 83605; 83630; 83735; 84100; 84132; 84484; 85025; 85027; 87040; 87077; 87086; 87088; 87177; 87186; 87209; 87493; 87506; 92526; 93005; 97110; 97163; 97166; 97530; 97535; 97802; 99284; J7030; J7050; A4216; J0834; J2405; J7799

== ENCOUNTER 2018-06-20 16:03 | Inpatient (IN) | payer MEDICAID, SELFPAY ==
[2018-06-20] VITALS (23 sets, daily range): BP systolic 59–100; BP diastolic 38–74; PULSE 79–98; RESP 15–30; TEMP 36.3–36.6; O2SAT 98–100; BMI 17.4; BMI 17.1
--- NOTE | 2018-06-20 16:32 | RAD_ITS ---
STUDY: X-RAY CHEST REASON FOR EXAM: Female, 53 years old. Short of breath and weakness. COPD. Small cell lung cancer. TECHNIQUE: Frontal and lateral views of the chest. COMPARISON: 05/27/2018. FINDINGS: Right Mediport catheter terminates in the mid SVC. There is hyperinflation of the lungs consistent with chronic obstructive lung disease (COPD). Fibrotic changes seen around the right hilum, stable. No gross mass or infiltrate. No effusion. There is no demonstrated pleural abnormality. Normal size heart. Normal mediastinum and dyan. Normal visualized pulmonary arteries. Normal visualized aortic arch and descending thoracic aorta. Normal visualized thoracic spine. Normal visualized ribs, clavicles, and shoulders. There is no demonstrated abnormality of the visualized soft tissue structures of the upper abdomen. RAD/Chest PA and Lateral IMPRESSION: No change. No definite mass or acute chest disease. Electronically Signed: Farooq Fountain MD at 16:56 EST , Service support ,
[2018-06-20 16:50] LABS: Lactic Acid 0.8 mmol/L (0.4-2.0)
[2018-06-20] MEDS: 0.9% Normal Saline 1,000 ML 50 ML IV (16:53)
[2018-06-20] MEDS: 0.9% Normal Saline 1,000 ML 1000 ML IV (17:08)
[2018-06-20 17:45] LABS: Hematocrit 33.5 % (37-47); Hemoglobin 11.8 g/dl (12.0-15.0); Mean Corp Hgb Conc 35.2 g/gl (32-36); Mean Corpuscular Hgb 29.8 pg (27.0-32.0); Mean Corpuscular Volume 84.6 fL (81-99); Mean Platelet Vol. 8.8 fl (6.2-12.0); Platelet Count 255 K/mm3 (150-450); RBC Distribution Width CV 18.5 % (11.6-14.6); RBC Distribution Width SD 57.2 fl (35.1-43.9); Red Blood Count 3.96 M/mm3 (4.2-5.4); White Blood Count 14.2 K/mm3 (4.4-11.0)
[2018-06-20 17:47] LABS: Scan Indicated on CBC? Y/N NO
[2018-06-20 17:53] LABS: ALB/GLOB Ratio 0.8 RATIO (0.9-2.4); AST(SGOT) 11 U/L (15-37); Alanine Aminotransfer ALT/SGPT 18 U/L (13-56); Alkaline Phosphatase 97 U/L (45-117); Anion Gap 14 (5-15); BUN 28 mg/dL (7-18); BUN/Creat Ratio 30.7 RATIO (10-20); Calcium,Total 8.4 mg/dL (8.5-10.1); Chloride 104 mmol/L (98-107); Creatinine, Serum 0.91 mg/dL (0.55-1.02); EST Glomerular Filtration Rate 68 mL/min (>60); Est Glom Filt Rate - Afr Amer 83 mL/min (>60); Estimated Creatinine Clearance 54.67 ml/min; Globulin 3.9 g/dL (2.2-4.2); Glucose 79 mg/dL (74-106); Potassium 1.5 mmol/L (3.5-5.1); Protein, Total 6.9 g/dL (6.4-8.2); Sodium Level 132 mmol/L (136-145)
--- NOTE | 2018-06-20 18:20 | ED.DCSUM_ITS ---
- ER Visit Summary Date of Service: 06/20/18 Chief Complaint: Diarrhea weakness History of Present Illness: The patient is a 53 F with small cell lung cancer has been home a week after rehab and is presenting with diarrhea 6-8 episodes a day decreased p.o. intake and weakness. His chemo was about a month ago. No fever or chills. No cough or congestion. Physical Examination: She appears chronically ill but not toxic. Dry mucous membranes, no obvious facial deformity No C-spine tenderness supple neck. Regular rate and rhythm without any obvious murmurs Worse lungs bilaterally speaking in full sentences without any obvious respiratory distress Abdomen soft and nontender no guarding or rebound Moves all extremities without any difficulty or pain. Skin does not show any obvious rashes or lesions, no trauma. She has a flat depressed affect Emergency Department Course and Treatment: Is found to be dehydrated hypokalemic but not septic. She will be treated and admitted to the hospital. Disposition: Admit in guarded condition Impression: DeHydration Hypokalemia Diarrhea This note was generated with [employer] dictation software. It may contain incorrect words, spelling, and punctuation that were not noted in review of the chart prior to signing ED Disposition - Plan for ED Patient: Chief Complaint: Weakness Referrals: Fausto Iverson DO [Primary Care Provider] -
--- NOTE | 2018-06-20 18:35 | PCM.HP.STD ---
Problem List (1) Hypokalemia Status: Acute (2) Hyponatremia Status: Acute (3) Nausea vomiting and diarrhea Status: Acute (4) Bipolar affect, depressed Status: Chronic Qualifiers: Current episode severity: moderate Qualified Code(s): F31.32 - Bipolar disorder, current episode depressed, moderate (5) Pulmonary embolism Status: Chronic Qualifiers: Pulmonary embolism type: other Chronicity: unspecified Acute cor pulmonale presence: without acute cor pulmonale Qualified Code(s): I26.99 - Other pulmonary embolism without acute cor pulmonale (6) Tobacco abuse Status: Chronic (7) Acid reflux disease Status: Chronic Qualifiers: Esophagitis presence: esophagitis presence not specified Qualified Code(s): K21.9 - Gastro-esophageal reflux disease without esophagitis (8) Small cell lung cancer Status: Chronic (9) COPD (chronic obstructive pulmonary disease) Status: Chronic Qualifiers: COPD type: chronic bronchitis Chronic bronchitis type: simple Qualified Code(s): J41.0 - Simple chronic bronchitis; J41.0 - Simple chronic bronchitis; J41.0 - Simple chronic bronchitis; J41.0 - Simple chronic bronchitis (10) Tobacco dependence Status: Chronic (11) PTSD (post-traumatic stress disorder) Status: Chronic History of Present Illness Date of Admission: 06/20/18 Chief Complaint: Weakness, Diarrhea, N/V The patient is a 53 y/o F w/ PMHx: PTSD/Anxiety and Depression, Tobacco use, Chronic COPD, Severe Protein-Calorie Malnutrition, Small Cell Lung Cancer on system chemotherapy last ~ 1 month prior and immunotherapy following w/ [facility] w/ recent discharge from [facility] on 06/02/18 with transition to SNF following prolonged admission w/ severe dehydration secondary to GI losses, hypovolemic shock, suspected adrenal insufficiency with severe hypokalemia with MEAGAN eventually discharged on prolonged slow steroid taper, potassium supplementation and sodium bicarb secondary to her non-AG metabolic acidosis w/ recommendation to follow-up with [facility] endocrinology and strict continued steroid usage until their evaluation who following transition to SNF worsened over 24 hours and was transitioned to [facility] where she remained in their ICU x 1 week with similar exact presentation with discharge ~ 6-7 days ago now w/ recurrent nausea, emesis, diarrhea at least 6-8x day, watery in nature with no marked abdominal cramping or pain, no fevers or chills but severely worsening fatigue and weakness. She has not followed w/ Endocrinology and she noted completing her taper. She has been unable to have any repeat chemotherapy sessions secondary to her ongoing acute presentation. In the ED work-up included T 97.8, heart rate 98, BP 87/57, respiratory rate 17, 100% on room air, BC with WBC 14.2, hemoglobin 11.8, platelet 255 without any differential performed, CMP with sodium 132, potassium 1.5, carbon dioxide 14, BUN/creatinine 28/0.91, urinalysis not severe appearing, chest x-ray with no acute findings. In the ED patient administered normal saline bolus as well as 40 mEq potassium initiated. 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) Acid reflux disease (Chronic) Rotator cuff syndrome (Chronic) Adrenal nodule (Chronic) Small cell lung cancer (Chronic) COPD (chronic obstructive pulmonary disease) (Chronic) Poor compliance with medication (Chronic) Left atrial thrombus (Chronic) Tobacco dependence (Chronic) PTSD (post-traumatic stress disorder) (Chronic) 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 [place] Spasm of back muscles (Chronic) Manic depression (Chronic) Dyspnea (Chronic) 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) Chest pain (Chronic) Medical History: Medical History (Last Reviewed 05/16/18 @ 20:50 by Sohan Waddell MD) Pulmonary embolism (Acute) I26.99 Tobacco abuse (Chronic) Z72.0 Muscle spasm (Chronic) M62.838 Periodontal disease (Acute) K05.6 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 (Chronic) Z79.01 Nausea & vomiting (Acute) R11.2 Acid reflux disease (Chronic) K21.9 Headache (Acute) R51 Rotator cuff syndrome (Chronic) M75.100 Adrenal nodule (Chronic) E27.9 Encounter for adjustment or management of vascular access device (Acute) Z45.2 Small cell lung cancer (Acute) C34.90 Regional lymph node metastasis present (Acute) C77.9 Lung metastasis (Acute) C78.00 COPD (chronic obstructive pulmonary disease) (Chronic) J44.9 Poor compliance with medication (Chronic) Z91.14 Left atrial thrombus (Chronic) [id number] Tobacco dependence (Chronic) F17.200 PTSD (post-traumatic stress disorder) (Chronic) F43.10 Thrombus of pulmonary vein (Chronic) I26.99 R pulmonary vein as it enters the [place] Spasm of back muscles (Chronic) M62.830 Manic depression (Chronic) F31.9 Dyspnea (Chronic) R06.00 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) I82.210 Chest pain (Chronic) R07.9 Allergies No Known Allergies Allergy (Verified 05/26/18 12:01) Home Medications: Ambulatory Orders Medication Instructions Recorded Cyclobenzaprine HCl 5 mg PO TID PRN 05/16/18 Ondansetron [Zofran] 8 mg PO Q8H PRN PRN 05/16/18 Diphenoxylate HCl/Atropine 1 each PO Q4H PRN PRN 05/26/18 [Lomotil 2.5-0.025 mg Tablet] Nicotine [Nicotine Patch] 1 patch TD DAILY 05/26/18 Diazepam 10 mg PO BID PRN #10 tab 06/02/18 Heparin Pf Lock 10 units/ml 50 units IV UD PRN syringe 06/02/18 Loperamide [Imodium] 2 mg PO Q4H PRN PRN capsule 06/02/18 Mirtazapine [Remeron] 30 mg PO HS tablet 06/02/18 Oxycodone [Oxyir] 5 mg PO Q6H PRN PRN #20 tab 06/02/18 Potassium Chloride [K-Dur] 40 meq PO BIDCM tablet 06/02/18 Sodium Bicarbonate 650 mg PO TID #90 tablet 06/02/18 prednisone 10 mg tablet 10 mg PO QDAY #30 tab 06/12/18 Surgical History: Surgical History (Last Reviewed 05/16/18 @ 20:50 by Sohan Waddell MD) History of lung biopsy Z98.890 [facility] 09/29/17, Surgical History: - - x 2, foot surgery, port placement. 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 traumatic stress DIET AID History: No pertinent DIET AID history Lives: Alone Smoking Status: Former smoker Tobacco Use: Non-smoker Alcohol: None Drugs: None - *Family History Maternal Family History: Family History (Last Reviewed 05/17/18 @ 03:08 by Sohan Waddell MD) Mother Diabetes Hypertension Cancer Father Cancer Headache Sister Cancer Brother Cancer History Items: Diabetes, Hypertension, - - mother of lung CA Paternal Family History: Family History (Last Reviewed 05/17/18 @ 03:08 by Sohan Waddell MD) Mother Diabetes Hypertension Cancer Father Cancer Headache Sister Cancer Brother Cancer History Items: - - father had pancreatitic CA Sibling Family History: Family History (Last Reviewed 05/17/18 @ 03:08 by Sohan Waddell MD) Mother Diabetes Hypertension Cancer Father Cancer Headache Sister Cancer Brother Cancer History Items: Cancer - 1 sister of lymphoma and a brother with pancreatic, - - no one in her family has been diagnosed with BPD Review of Systems Constitutional: Reports: Anorexia, Malaise, Weakness, Weight Change, Fatigue HEENT: Reports: Head Aches. Denies: Sinus Congestion, Sinus Drainage Cardiovascular: Denies: Chest Pain, Palpitations Respiratory: Reports: Shortness of breath upon exertion. Denies: Cough, Shortness of breath at rest, Sputum production Gastrointestinal: Reports: Diarrhea, Nausea, Vomiting. Denies: Abdominal Pain Genitourinary: Denies: Dysuria Musculoskeletal: Reports: Back Pain, Joint Pain, Leg Pain, Muscle pain. Denies: Joint Tenderness Skin: Denies: Rash, Wounds Neurological: Denies: Numbness, Tingling, Focal weakness Psychiatric: Reports: Anxiety, Depression. Denies: Homicidal Ideations, Suicidal Ideations Hematologic/ Lymphatic: Reports: Anemia. Denies: Easy Bruising, Easy Bleeding VTE Information - Inpt Only VTE Present on Admission: No VTE Mechan Device Prophylaxis: SCD's VTE Pharm Prophylaxis ordered?: Yes Subjective: Laying in the ED bed, fatigued, ill appearing. Objective: Physical Examination: General: awake, intermittently alert, oriented x 3 but very fatigued and cooperative, laying in the ED bed, ill-appearing. Skin: normal color, turgor, no icterus, cyanosis except noted dermatitis to the upper forehead scalp region and occasional very staged ecchymoses to the extremities. HEENT: AT/NC, EOMI, PERRLA, dry MM, no carotid bruits or JVD noted. Lungs: Managed breath sounds bilateral bases, mild effort, no rales, ronchi or wheezing. Heart: Regular rate and rhythm; no gallop, rub audible. Abdomen: soft, NTTP, ND, hyperactive BS, no HSM. Extremities: no cyanosis, clubbing, or edema. Neurological: patient awake, alert, oriented as noted; cognitive function appears mildly decreased from baseline but intact; pupils equally reactive to light and accomodation; cranial nerves II-XII grossly normal, moving all 4 extremities, no focal deficits, strength severely globally decreased secondary to acute presentation. Psychiatric: affect appears fatigued, lethargic, no acute evidence of depressive or anxiety feelings. - Physical Exam Vital Signs Temp Pulse Resp BP Pulse Ox 97.8 F 93 19 H 91/61 100 06/20/18 16:05 06/20/18 18:27 06/20/18 18:27 06/20/18 18:27 06/20/18 18:27 Oxygen Delivery Method Room Air Weight: 108 lb 0.424 oz Body Mass Index (BMI) 17.4 Laboratory Tests Past 24 Hrs 06/20/18 06/20/18 06/20/18 16:15 16:15 16:15 WBC 14.2 H RBC 3.96 L Hgb 11.8 L Hct 33.5 L MCV 84.6 MCH 29.8 MCHC 35.2 RDW 18.5 H RDW Differential 57.2 H Plt Count 255 MPV 8.8 Sodium 132 L Potassium 1.5 L* Chloride 104 Carbon Dioxide 14.0 L Anion Gap 14 BUN 28 H Creatinine 0.91 Estim Creat Clear Calc 54.67 Est GFR (MDRD) Af Amer 83 Est GFR (MDRD) Non-Af 68 BUN/Creatinine Ratio 30.7 H Glucose 79 Lactic Acid 0.8 Calcium 8.4 L Total Bilirubin 0.70 AST 11 L ALT 18 Alkaline Phosphatase 97 Total Protein 6.9 Albumin 3.0 L Globulin 3.9 Albumin/Globulin Ratio 0.8 L Assessment/Plan All Active Problems (Last Reviewed 05/16/18 @ 20:50 by Sohan Waddell MD) Acute kidney injury (Acute) Hypokalemia (Acute) Abnormal EKG (Acute) Hyponatremia (Acute) Nausea vomiting and diarrhea (Acute) Severe dehydration (Acute) Cardiac arrest (Acute) Periodontal disease (Acute) Nausea & vomiting (Acute) Headache (Acute) Encounter for adjustment or management of vascular access device (Acute) Regional lymph node metastasis present (Acute) Lung metastasis (Acute) The patient is a 53 y/o F w/ PMHx: PTSD/Anxiety and Depression, Tobacco use, Chronic COPD, Severe Protein-Calorie Malnutrition, Small Cell Lung Cancer on system chemotherapy last ~ 1 month prior and immunotherapy following w/ [facility] w/ recent discharge from [facility] on 06/02/18 with transition to SNF following prolonged admission w/ severe dehydration secondary to GI losses, hypovolemic shock, suspected adrenal insufficiency with severe hypokalemia with MEAGAN eventually discharged on prolonged slow steroid taper, potassium supplementation and sodium bicarb secondary to her non-AG metabolic acidosis w/ recommendation to follow-up with [facility] end[facility] and strict continued steroid usage until their evaluation who following transition to SNF worsened over 24 hours and was transitioned to [facility] where she remained in their ICU x 1 week with similar exact presentation with discharge ~ 6-7 days ago now w/ recurrent nausea, emesis, diarrhea at least 6-8x day, watery in nature with no marked abdominal cramping or pain, no fevers or chills but severely worsening fatigue and weakness. (1) Hypotension, Multifactorial, As noted prior Suspected Adrenal Insufficiency and Hypovolemia w/ Hypovolemic Shock secondary to GI losses: Prior admission w/ need for pressor usage, but great response to steroids. Will admit to ICU given severity of hypokalemia and notably hypotension not markedly response to IVFs in the ED, pending UA, UCx, Bld Cx per ED, less concerned for infectious component but as noted obtaining stool cultures, continue to aggressively hydrate, initiate stress dose steroids again, requested initiation in the ED as BP further decreasing, may need pressor therapy which patient is amenable to using, ICU physician consulted, pending. (2) Recurrent Diarrhea, Nausea, Emesis suspected likely secondary to Immunotherapy, Chemotherapy: Prior admission w/ no obvious infectious etiology, will repeat stool cultures, c-diff and O+P, maintain on precautions pending these results, continue to aggressively hydrate, electrolyte replacement as needed, aggressive loperamide regimen once c-diff returned. (3) Hypokalemia, Severe: Admission K 1.5, secondary to her GI losses and likely adrenal insufficiency, initiated supplementation in the ED, will obtain q 2 level x 3 for continued supplementations needs, maintain on telemetry, obtain mag level and supplement as needed. (4) Small Cell Lung Cancer: Noted initially SCLC R lung 2014, following with [facility], undergoing chemoradiation wtih cisplatin/etoposide and completed prophylactic intracranial irradiation with follow-up LIMA bx 04/17/17 positive for small cell carcinoma, has undergone 3 additional cycles cisplatin/etoposide, topotecan and weekly paclitaxel with initiation of nivolumab and ipilimumab 03/03/18. Mag and phos pending as noted. Suspicion for GI presentations secondary to her ongoing therapies. (5) Severe protein calorie malnutrition: Evidenced per her habitus, BMI, muscle and fat loss, nutrition consulted, pending. (6) PTSD/Anxiety and Depression: Continue home psychiatric regimen. (7) Tobacco use: Encouraged continued tobacco cessation, continue NR. (8) Chronic COPD: ATC duonebs, PRN albuterol, HOB, IS parameters. (9) DVT Prophylaxis: SCDs, heparin. (10) CODE status: Discussed CODE status at length including difference between FULL code, DNR-CCA and DNR-CC status. Following discussions about the differences in these status, requested Full Code Status despite her severe presentation and ongoing healthy issues. Noted likely these interventions would not be successful secondary to here severe status. No family present, only friend. Advanced Care Planning Face to Face Time: 17 minutes. Code Visit Inpatient E&M: 99220 Init Hosp L3 Procedures: 58612 Advncd Care Plan 30 Min
[2018-06-20 18:42] LABS: Bacteria 0 SEEN /hpf (None Seen); Mucous, Urine 0 SEEN /hpf (<or=2+)
[2018-06-20 18:45] LABS: Color, Urine Yellow (Yellow); Glucose, Dipstick Normal (Normal); Ketone-Dipstick 5 mg/dl (Negative); Leukocyte Esterase-Dipstick Negative /ul (Negative); Nitrite-Dipstick Negative (Negative); Occult Blood-Urine 10 /ul (Negative); Protein-Dipstick 100 mg/dl (Negative); Specific Gravity, Urine 1.005 (1.002-1.030); Urine Bilirubin Dipstick Negative (Negative); Urine Clarity Clear (Clear); Urine Urobilinogen Normal (Normal)
[2018-06-20 18:56] LABS: Red Blood Cells-Urine 0-5 SEEN /hpf (0-5); Squamous Epithelial Cells - UA 0-5 SEEN /hpf (5-10); White Blood Cells 0-5 SEEN /hpf (0-5)
[2018-06-20] MEDS: 0.9% Normal Saline 1,000 ML 999 ML IV (20:22)
[2018-06-20] MEDS: Hydrocortisone Sod Succinate 100 MG/2 ML Vial IV (21:10)
[2018-06-20 21:14] LABS: Anion Gap 15 (5-15); BUN 26 mg/dL (7-18); BUN/Creat Ratio 35.2 RATIO (10-20); Calcium,Total 7.1 mg/dL (8.5-10.1); Chloride 112 mmol/L (98-107); Creatinine, Serum 0.74 mg/dL (0.55-1.02); EST Glomerular Filtration Rate 87 mL/min (>60); Est Glom Filt Rate - Afr Amer 106 mL/min (>60); Estimated Creatinine Clearance 65.99 ml/min; Glucose 78 mg/dL (74-106); Magnesium 2.2 mg/dL (1.6-2.6); Phosphorus 4.8 mg/dL (2.5-4.9); Potassium 1.7 mmol/L (3.5-5.1); Sodium Level 137 mmol/L (136-145)
--- NOTE | 2018-06-20 21:27 | NURSING ---
patient refusing second set of blood cultures and attempt for another IV access, states I do not want any more needle sticks.
[2018-06-20] MEDS: Sodium Bicarbonate 650 MG Tablet PO (22:09)
[2018-06-20] MEDS: Pantoprazole Sodium 20 MG Tablet PO (22:09)
[2018-06-20] MEDS: Mirtazapine 30 MG Tablet PO (22:09)
[2018-06-20] MEDS: 0.9% Normal Saline 1,000 ML 150 ML IV (23:23)
[2018-06-21] VITALS (40 sets, daily range): BP systolic 78–125; BP diastolic 49–108; PULSE 80–100; RESP 14–24; TEMP 36.4–36.7; O2SAT 92–100
[2018-06-21 03:28] LABS: Anion Gap 16 (5-15); BUN 23 mg/dL (7-18); BUN/Creat Ratio 31.2 RATIO (10-20); Calcium,Total 6.9 mg/dL (8.5-10.1); Chloride 115 mmol/L (98-107); Creatinine, Serum 0.74 mg/dL (0.55-1.02); EST Glomerular Filtration Rate 87 mL/min (>60); Est Glom Filt Rate - Afr Amer 106 mL/min (>60); Estimated Creatinine Clearance 65.99 ml/min; Glucose 84 mg/dL (74-106); Potassium 1.9 mmol/L (3.5-5.1); Sodium Level 142 mmol/L (136-145)
[2018-06-21 04:28] LABS: Hematocrit 26.3 % (37-47); Hemoglobin 9.4 g/dl (12.0-15.0); Mean Corp Hgb Conc 35.7 g/gl (32-36); Mean Platelet Vol. 8.6 fl (6.2-12.0); Platelet Count 241 K/mm3 (150-450); RBC Distribution Width CV 18.3 % (11.6-14.6); Red Blood Count 3.13 M/mm3 (4.2-5.4); White Blood Count 11.3 K/mm3 (4.4-11.0)
[2018-06-21 04:30] LABS: Scan Indicated on CBC? Y/N NO
[2018-06-21 04:57] LABS: Magnesium 2.2 mg/dL (1.6-2.6); Phosphorus 4.8 mg/dL (2.5-4.9)
[2018-06-21] MEDS: Sodium Bicarbonate 650 MG Tablet PO ×3 (05:19→21:17)
[2018-06-21] MEDS: Hydrocortisone Sod Succinate 100 MG/2 ML Vial IV ×3 (05:19→21:17)
[2018-06-21] MEDS: Menthol/Lanolin/Calamine/Znox 113 GM Tube 1 APPLIC TOPICAL ×3 (05:19→21:37)
[2018-06-21] MEDS: 0.9% Normal Saline 1,000 ML 150 ML IV ×3 (05:26→19:55)
--- NOTE | 2018-06-21 07:57 | EKG12_ITS ---
Test Reason : CP Blood Pressure : / mmHG Vent. Rate : 099 BPM Atrial Rate : 099 BPM P-R Int : 162 ms QRS Dur : 112 ms QT Int : 432 ms P-R-T Axes : 073 090 076 degrees QTc Int : 554 ms Normal sinus rhythm Biatrial enlargement Rightward axis Incomplete right bundle branch block Possible Anterior infarct , age undetermined Marked ST abnormality, possible inferior subendocardial injury Prolonged QT Abnormal ECG Confirmed by JUAN MANUEL SUAZO, SHERIN ([id number]), editor at large MIREYA WEISS ([id number]) on 06/22/2018 3:19:41 PM Referred By: Trciia Allison Confirmed By:SHERIN ZAMBRANO MD
--- NOTE | 2018-06-21 07:57 | CPS ---
Pt refusing aerosols and I.S.
[2018-06-21] MEDS: 0.9% NaCl Peripheral Flush Adult/Peds IV ×3 (08:36→14:18)
--- NOTE | 2018-06-21 08:55 | PCM.CON.CC ---
Reason for Consult Date of Consultation: 06/21/18 Reason for Consultation: Hypovolemic shock/adrenal insufficiency History of Present Illness: The patient is a 53-year-old female, with a history as outlined below, who presented to the emergency department on June 20 with hypotension, generalized weakness and poor p.o. intake. The patient does have a known history of small cell lung cancer and COPD, for which she follows with Dr. Chucky Mckeon. She is currently on immunotherapy through the [facility]. The patient has now been admitted to the hospital 3 separate times over the last 4-6 weeks under similar circumstances. Each time, the patient presents with findings concerning for septic shock in the setting of hypotension and severe electrolyte abnormalities. Up until this hospital admission, all of the patient's previous infectious workups were completely negative. During the patient's last hospitalization, a preliminary workup did reveal findings concerning for adrenal insufficiency, for which she was placed on stress dose steroids. Upon her last discharge on June 02, the [facility], where she remained for only a short period of time, prior to being transitioned to a hospital in [place], where she remained for a week in the ICU under similar circumstances. The patient was supposed to follow-up with endocrinology, but failed to do so. There is also some concern that her current immunotherapy may be leading to her recurrent gastrointestinal issues. On presentation to the emergency department, the patient was noted to be afebrile and hypotensive. She was, nevertheless, maintaining appropriate oxygen saturations on room air. Laboratory evaluation revealed a mildly elevated white blood cell count of 14,000. Chemistry profile was notable for a sodium of 132, potassium of 1.5, bicarbonate of 14 and albumin of 3.0. Cultures were collected. The patient was provided supplemental IV fluid hydration along with aggressive potassium repletion. Due to her hypotension, the patient was initiated on Levophed and transferred to the medical intensive care unit for ongoing management. Overnight, the patient's levophed was able to be weaned off. The patient was noted to be positive for C. difficile and was subsequently started on p.o. vancomycin. She is also receiving stress dose steroids. I did have a discussion with her at the bedside this morning regarding the need for further evaluation from multiple specialists including her oncologist in [place] and endocrinology. The patient is agreeable to proceeding with a transfer to the [facility] for further evaluation. 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) Acid reflux disease (Chronic) Rotator cuff syndrome (Chronic) Adrenal nodule (Chronic) Small cell lung cancer (Chronic) COPD (chronic obstructive pulmonary disease) (Chronic) Poor compliance with medication (Chronic) Left atrial thrombus (Chronic) Tobacco dependence (Chronic) PTSD (post-traumatic stress disorder) (Chronic) 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 [place] Spasm of back muscles (Chronic) Manic depression (Chronic) Dyspnea (Chronic) 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) Chest pain (Chronic) Medical History: Medical History (Last Reviewed 05/16/18 @ 20:50 by Sohan Waddell MD) Pulmonary embolism (Chronic) I26.99 Tobacco abuse (Chronic) Z72.0 Muscle spasm (Chronic) M62.838 Periodontal disease (Acute) K05.6 care home current use of anticoagulant (Chronic) Z79.01 Nausea & vomiting (Acute) R11.2 Acid reflux disease (Chronic) K21.9 Headache (Acute) R51 Rotator cuff syndrome (Chronic) M75.100 Adrenal nodule (Chronic) E27.9 Encounter for adjustment or management of vascular access device (Acute) Z45.2 Small cell lung cancer (Chronic) C34.90 Regional lymph node metastasis present (Acute) C77.9 Lung metastasis (Acute) C78.00 COPD (chronic obstructive pulmonary disease) (Chronic) J44.9 Poor compliance with medication (Chronic) Z91.14 Left atrial thrombus (Chronic) [id number] Tobacco dependence (Chronic) F17.200 PTSD (post-traumatic stress disorder) (Chronic) F43.10 Thrombus of pulmonary vein (Chronic) I26.99 R pulmonary vein as it enters the [place] Spasm of back muscles (Chronic) M62.830 Manic depression (Chronic) F31.9 Dyspnea (Chronic) R06.00 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) I82.210 Chest pain (Chronic) R07.9 Allergies No Known Allergies Allergy (Verified 05/26/18 12:01) Home Medications: Ambulatory Orders Medication Instructions Recorded Cyclobenzaprine HCl 5 mg PO TID PRN 05/16/18 Ondansetron [Zofran] 8 mg PO Q8H PRN PRN 05/16/18 Diazepam 10 mg PO BID PRN #10 tab 06/02/18 Heparin Pf Lock 10 units/ml 50 units IV UD PRN syringe 06/02/18 Loperamide [Imodium] 2 mg PO Q4H PRN PRN capsule 06/02/18 Oxycodone [Oxyir] 5 mg PO Q6H PRN PRN #20 tab 06/02/18 Mirtazapine [Remeron] 15 mg PO HS 06/20/18 Nicotine Polacrilex [Nicotine Gum] 2 mg BC Q1H PRN 06/20/18 Oxybutynin [Ditropan] 5 mg PO TID 06/20/18 Prochlorperazine Maleate 10 mg PO Q6H PRN PRN 06/20/18 [Compazine] Sennosides/Docusate Sodium 1 each PO DAILY 06/20/18 [Docusate Sodium-Senna Tablet] Tiotropium Br/Olodaterol HCl 4 gm IH BID 06/20/18 [Stiolto Respimat Inhal [place]] Surgical History: Surgical History (Last Reviewed 05/16/18 @ 20:50 by Sohan Waddell MD) History of lung biopsy Z98.890 [facility] 09/29/17, Surgical History: - - x 2, foot surgery, port placement. 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 Lives: Alone Smoking Status: Former smoker Tobacco Use: Non-smoker Alcohol: None Drugs: None - *Family History Maternal Family History: Family History (Last Reviewed 05/17/18 @ 03:08 by Sohan Waddell MD) Mother Diabetes Hypertension Cancer Father Cancer Headache Sister Cancer Brother Cancer History Items: Diabetes, Hypertension, - - mother of lung CA Paternal Family History: Family History (Last Reviewed 05/17/18 @ 03:08 by Sohan Waddell MD) Mother Diabetes Hypertension Cancer Father Cancer Headache Sister Cancer Brother Cancer History Items: - - father had pancreatitic CA Sibling Family History: Family History (Last Reviewed 05/17/18 @ 03:08 by Sohan Waddell MD) Mother Diabetes Hypertension Cancer Father Cancer Headache Sister Cancer Brother Cancer History Items: Cancer - 1 sister of lymphoma and a brother with pancreatic, - - no one in her family has been diagnosed with BPD Review of Systems Constitutional: Reports: Malaise, Weakness, Fatigue Eyes: Denies: Blurred vision, Double vision HEENT: Denies: Head Aches, Sinus Congestion, Sinus Drainage Cardiovascular: Denies: Chest Pain, Palpitations Respiratory: Reports: Shortness of Breath Gastrointestinal: Reports: Diarrhea, Nausea Genitourinary: Denies: Dysuria Musculoskeletal: Denies: Joint Pain, Joint Tenderness Skin: Denies: Rash, Wounds Neurological: Denies: Numbness, Tingling, Focal weakness Psychiatric: Reports: Anxiety Hematologic/ Lymphatic: Reports: Anemia Objective: The patient's most recent lab work, culture data and imaging studies have all been personally reviewed. Blood cultures are pending. Stool for ova and parasites along with enteric bacteriology is pending. - Physical Exam General: Alert, Cooperative, - - Frail and cachectic in appearance. HEENT: Atraumatic, PERRLA, Normocephalic Oral: Dry Mucosa Neck: Supple, No Nodes, Trachea Midline Lungs: No rhonchi, No wheeze, No rales, Diminished Cardiovascular: Regular rate, Regular Rhythm, Normal S1, Normal S2, No murmurs Abdomen: Bowel Sounds Present, Soft, Non Tender Extremities: No cyanosis, No edema, Clubbing Skin: No breakdown Musculoskeletal: Cachexia, Muscle Wasting Lymphatic: No Cervical, Supraclavicular, or Inguinal Adenopathy Neurological: Cranial nerves II-XII grossly intact, Neuro grossly intact Psych/Mental Status: Flat Affect Vital Signs Temp Pulse Resp BP Pulse Ox 36.7 C 84 16 83/70 L 100 06/21/18 08:00 06/21/18 08:00 06/21/18 08:00 06/21/18 08:00 06/21/18 08:00 Oxygen Delivery Method Room Air Weight: 111 lb 8.862 oz Body Mass Index (BMI) 17.1 Intake and Output for Last 24 Hours 06/19/18 06/20/18 06/21/18 23:59 23:59 23:59 Intake Total 1430.8 / 1430.8 1551.6 / 1551.6 Output Total 200 / 200 500 / 500 Balance 1230.8 / 1230.8 1051.6 / 1051.6 Microbiology Past 72 Hours 06/20/18 20:10 C. difficile DNA Amplification - Final Stool Toxigenic C. difficile DNA Laboratory Tests Past 24 Hrs 06/20/18 06/20/18 06/20/18 16:15 16:15 16:15 WBC 14.2 H RBC 3.96 L Hgb 11.8 L Hct 33.5 L MCV 84.6 MCH 29.8 MCHC 35.2 RDW 18.5 H RDW Differential 57.2 H Plt Count 255 MPV 8.8 Sodium 132 L Potassium 1.5 L* Chloride 104 Carbon Dioxide 14.0 L Anion Gap 14 BUN 28 H Creatinine 0.91 Estim Creat Clear Calc 54.67 Est GFR (MDRD) Af Amer 83 Est GFR (MDRD) Non-Af 68 BUN/Creatinine Ratio 30.7 H Glucose 79 Lactic Acid 0.8 Calcium 8.4 L Phosphorus Magnesium Total Bilirubin 0.70 AST 11 L ALT 18 Alkaline Phosphatase 97 Total Protein 6.9 Albumin 3.0 L Globulin 3.9 Albumin/Globulin Ratio 0.8 L Urine Color Urine Clarity Urine pH Ur Specific [place] Urine Protein Urine Glucose (UA) Urine Ketones Urine Occult Blood Urine Nitrite Urine Bilirubin Urine Urobilinogen Ur Leukocyte Esterase Urine RBC Urine WBC Ur Squamous Epith Cells Urine Bacteria Urine Mucus 06/20/18 06/20/18 06/21/18 18:30 20:10 02:35 WBC RBC Hgb Hct MCV MCH MCHC RDW RDW Differential Plt Count MPV Sodium 137 142 Potassium 1.7 L* 1.9 L* Chloride 112 H 115 H Carbon Dioxide 10.0 L 11.0 L Anion Gap 15 16 H BUN 26 H 23 H Creatinine 0.74 0.74 Estim Creat Clear Calc 65.99 65.99 Est GFR (MDRD) Af Amer 106 106 Est GFR (MDRD) Non-Af 87 87 BUN/Creatinine Ratio 35.2 H 31.2 H Glucose 78 84 Lactic Acid Calcium 7.1 L 6.9 L Phosphorus 4.8 Magnesium 2.2 Total Bilirubin AST ALT Alkaline Phosphatase Total Protein Albumin Globulin Albumin/Globulin Ratio Urine Color Yellow Urine Clarity Clear Urine pH 7.0 Ur Specific [place] 1.005 Urine Protein 100 H Urine Glucose (UA) Normal Urine Ketones 5 H Urine Occult Blood 10 H Urine Nitrite Negative Urine Bilirubin Negative Urine Urobilinogen Normal Ur Leukocyte Esterase Negative Urine RBC 0-5 SEEN Urine WBC 0-5 SEEN Ur Squamous Epith Cells 0-5 SEEN Urine Bacteria 0 SEEN Urine Mucus 0 SEEN 06/21/18 06/21/18 06/21/18 02:35 04:10 08:30 WBC 11.3 H RBC 3.13 L Hgb 9.4 L Hct 26.3 L MCV 84.0 MCH 30.0 MCHC 35.7 RDW 18.3 H RDW Differential 54.0 H Plt Count 241 MPV 8.6 Sodium Potassium Pending Chloride Carbon Dioxide Anion Gap BUN Creatinine Estim Creat Clear Calc Est GFR (MDRD) Af Amer Est GFR (MDRD) Non-Af BUN/Creatinine Ratio Glucose Lactic Acid Calcium Phosphorus 4.8 Magnesium 2.2 Total Bilirubin AST ALT Alkaline Phosphatase Total Protein Albumin Globulin Albumin/Globulin Ratio Urine Color Urine Clarity Urine pH Ur Specific [place] Urine Protein Urine Glucose (UA) Urine Ketones Urine Occult Blood Urine Nitrite Urine Bilirubin Urine Urobilinogen Ur Leukocyte Esterase Urine RBC Urine WBC Ur Squamous Epith Cells Urine Bacteria Urine Mucus Clinical Impression(s) from Imaging Studies Chest X-Ray 06/20/18 16:32 IMPRESSION: No change. No definite mass or acute chest disease. Electronically Signed: Farooq Fountain MD at 16:56 EST , Service support , Clinical Impression(s) from Imaging Studies Chest X-Ray 06/20/18 16:32 IMPRESSION: No change. No definite mass or acute chest disease. Electronically Signed: Farooq Fountain MD at 16:56 EST , Service support , Assessment/Plan RECOMMENDATIONS: 1. Continue current supportive measures with IV volume resuscitation and aggressive electrolyte repletion. 2. Continue stress dose steroids. 3. Start p.o. vancomycin for C. difficile colitis. 4. Continue scheduled bronchodilators. 5. Continue nicotine replacement therapy. 6. Consider transfer to [facility] for evaluation by the patient's oncologist and endocrinology. IMPRESSIONS: 1. Hypovolemic shock coupled with probable adrenal insufficiency This is now the patient's third hospitalization for similar issues. During each of the patient's prior hospitalizations, she presented with profound hypovolemia and electrolyte disturbances, in the setting of noninfectious gastrointestinal losses. It was initially felt that her GI losses may be the consequence of the immunotherapy she is receiving through the [facility] for her small cell lung cancer. However, the patient was noted to be positive during this hospital admission for C. difficile. Regardless, the patient always responds to IV volume resuscitation and stress dose steroids. She did have an abnormal cosyntropin stimulation test during her previous hospitalization and was supposed to follow-up with endocrinology, but failed to do so. At the current time, the patient's hemodynamics have responded favorably to volume expansion and stress dose steroids. At this point, given the recurrent nature of the patient's hospitalizations, I have recommended consideration for transfer to the [facility] for evaluation by the patient's oncologist and endocrinology. 2. Small cell lung cancer The patient was diagnosed with limited stage small cell lung cancer in 2014. She underwent concurrent chemoradiation wtih cisplatin/etoposide and completed prophylactic intracranial irradiation. She presented with local recurrent disease in 2016. Biopsy of LIMA on 04/17/17 was positive for small cell carcinoma. She has since progressed through 3 additional cycles of cisplatin/etoposide, topotecan and weekly paclitaxel. Began nivolumab and ipilimumab on 03/03/18 under the care of Dr. Cabral at [facility]. 3. Hypovolemic hyponatremia/hypokalemia Continue IV volume resuscitation and aggressive electrolyte repletion. 4. C. difficile colitis The patient will be placed on p.o. vancomycin. 5. Severe protein calorie malnutrition/debility/bipolar disorder/ongoing tobacco dependence Complicates care, management, recovery and prognosis. Continue nicotine replacement therapy. Smoking cessation is advisable. Nutrition team is following. Physical therapy to evaluate patient. This note was generated with [employer] software. It may contain incorrect words, spelling, and punctuation that were not noted in checking the note before signing. Code Visit Inpatient E&M: 04274 Init Hosp L3
--- NOTE | 2018-06-21 08:58 | CON.PCM_ITS ---
Reason for Consult Date of Consultation: 06/21/18 Reason for Consultation: Hypovolemic shock/adrenal insufficiency History of Present Illness: The patient is a 53-year-old female, with a history as outlined below, who presented to the emergency department on June 20 with hypotension, generali zed weakness and poor p.o. intake. The patient does have a known history of small cell lung cancer and COPD, for which she follows with Dr. Chucky Mckeon. She is currently on immunotherapy through the [facility]. The patient has now been admitted to the hospital 3 separate times over the last 4-6 weeks under similar circumstances. Each time, the patient presents with findings concerning for septic shock in the setting of hypotension and severe electrolyte abnormalities. Up until this hospital admission, all of the patient's previous infectious workups were completely negative. During the patient's last hospitalization, a preliminary workup did reveal findings concerning for adrenal insufficiency, for which she was placed on stress dose steroids. Upon her last discharge on June 02, the patient was transitioned to a senior living facility, where she remained for only a short period of time, prior to being transitioned to a hospital in [place], where she remained for a week in the ICU under similar circumstances. The patient was supposed to follow-up with endocrinology, but failed to do so. There is also some concern that her current immunotherapy may be leading to her recurrent gastrointestinal issues. On presentation to the emergency department, the patient was noted to be afebrile and hypotensive. She was, nevertheless, maintaining appropriate oxygen saturations on room air. Laboratory evaluation revealed a mildly elevated white blood cell count of 14,000. Chemistry profile was notable for a sodium of 132, potassium of 1.5, bicarbonate of 14 and albumin of 3.0. Cultures were collected. The patient was provided supplemental IV fluid hydration along with aggressive potassium repletion. Due to her hypotension, the patient was initiated on Levophed and transferred to the medical intensive care unit for ongoing management. Overnight, the patient's levophed was able to be weaned off. The patient was noted to be positive for C. difficile and was subsequently started on p.o. vancomycin. She is also receiving stress dose steroids. I did have a discussion with her at the bedside this morning regarding the need for further evaluation from multiple specialists including her oncologist in [place] and endocrinology. The patient is agreeable to proceeding with a transfer to the [facility] for further evaluation. Past Medical History Past Medical History (Chronic Problems): Chronic Problems (Last Reviewed 05/16/18 @ 20:50 by Sohan Waddell MD) Bipolar affect, depressed (Chronic) Pulmonary embolism (Chronic) Tobacco abuse (Chronic) Muscle spasm (Chronic) intermediate current use of anticoagulant (Chronic) Acid reflux disease (Chronic) Rotator cuff syndrome (Chronic) Adrenal nodule (Chronic) Small cell lung cancer (Chronic) COPD (chronic obstructive pulmonary disease) (Chronic) Poor compliance with medication (Chronic) Left atrial thrombus (Chronic) Tobacco dependence (Chronic) PTSD (post-traumatic stress disorder) (Chronic) 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 [place] Spasm of back muscles (Chronic) Manic depression (Chronic) Dyspnea (Chronic) 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) Chest pain (Chronic) Medical History: Medical History (Last Reviewed 05/16/18 @ 20:50 by Sohan Waddell MD) Pulmonary embolism (Chronic) I26.99 Tobacco abuse (Chronic) Z72.0 Muscle spasm (Chronic) M62.838 Periodontal disease (Acute) K05.6 intermediate current use of anticoagulant (Chronic) Z79.01 Nausea & vomiting (Acute) R11.2 Acid reflux disease (Chronic) K21.9 Headache (Acute) R51 Rotator cuff syndrome (Chronic) M75.100 Adrenal nodule (Chronic) E27.9 Encounter for adjustment or management of vascular access device (Acute) Z45.2 Small cell lung cancer (Chronic) C34.90 Regional lymph node metastasis present (Acute) C77.9 Lung metastasis (Acute) C78.00 COPD (chronic obstructive pulmonary disease) (Chronic) J44.9 Poor compliance with medication (Chronic) Z91.14 Left atrial thrombus (Chronic) [id number] Tobacco dependence (Chronic) F17.200 PTSD (post-traumatic stress disorder) (Chronic) F43.10 Thrombus of pulmonary vein (Chronic) I26.99 R pulmonary vein as it enters the [place] Spasm of back muscles (Chronic) M62.830 Manic depression (Chronic) F31.9 Dyspnea (Chronic) R06.00 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) I82.210 Chest pain (Chronic) R07.9 Allergies No Known Allergies Allergy (Verified 05/26/18 12:01) Home Medications: Ambulatory Orders Medication Instructions Recorded Cyclobenzaprine HCl 5 mg PO TID PRN 05/16/18 Ondansetron [Zofran] 8 mg PO Q8H PRN PRN 05/16/18 Diazepam 10 mg PO BID PRN #10 tab 06/02/18 Heparin Pf Lock 10 units/ml 50 units IV UD PRN syringe 06/02/18 Loperamide [Imodium] 2 mg PO Q4H PRN PRN capsule 06/02/18 Oxycodone [Oxyir] 5 mg PO Q6H PRN PRN #20 tab 06/02/18 Mirtazapine [Remeron] 15 mg PO HS 06/20/18 Nicotine Polacrilex [Nicotine Gum] 2 mg BC Q1H PRN 06/20/18 Oxybutynin [Ditropan] 5 mg PO TID 06/20/18 Prochlorperazine Maleate 10 mg PO Q6H PRN PRN 06/20/18 [Compazine] Sennosides/Docusate Sodium 1 each PO DAILY 06/20/18 [Docusate Sodium-Senna Tablet] Tiotropium Br/Olodaterol HCl 4 gm IH BID 06/20/18 [Stiolto Respimat Inhal [place]] Surgical History: Surgical History (Last Reviewed 05/16/18 @ 20:50 by Sohan Waddell MD) History of lung biopsy Z98.890 [facility] 09/29/17, Surgical History: - - x 2, foot surgery, port placement. 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 traumatic stress PATENT EXAMINER History: No pertinent PATENT EXAMINER history Lives: Alone Smoking Status: Former smoker Tobacco Use: Non-smoker Alcohol: None Drugs: None - *Family History Maternal Family History: Family History (Last Reviewed 05/17/18 @ 03:08 by Sohan Waddell MD) Mother Diabetes Hypertension Cancer Father Cancer Headache Sister Cancer Brother Cancer History Items: Diabetes, Hypertension, - - mother of lung CA Paternal Family History: Family History (Last Reviewed 05/17/18 @ 03:08 by Sohan Waddell MD) Mother Diabetes Hypertension Cancer Father Cancer Headache Sister Cancer Brother Cancer History Items: - - father had pancreatitic CA Sibling Family History: Family History (Last Reviewed 05/17/18 @ 03:08 by Sohan Waddell MD) Mother Diabetes Hypertension Cancer Father Cancer Headache Sister Cancer Brother Cancer History Items: Cancer - 1 sister of lymphoma and a brother with pancreatic, - - no one in her family has been diagnosed with BPD Review of Systems Constitutional: Reports: Malaise, Weakness, Fatigue Eyes: Denies: Blurred vision, Double vision HEENT: Denies: Head Aches, Sinus Congestion, Sinus Drainage Cardiovascular: Denies: Chest Pain, Palpitations Respiratory: Reports: Shortness of Breath Gastrointestinal: Reports: Diarrhea, Nausea Genitourinary: Denies: Dysuria Musculoskeletal: Denies: Joint Pain, Joint Tenderness Skin: Denies: Rash, Wounds Neurological: Denies: Numbness, Tingling, Focal weakness Psychiatric: Reports: Anxiety Hematologic/ Lymphatic: Reports: Anemia Objective: The patient's most recent lab work, culture data and imaging studies have all been personally reviewed. Blood cultures are pending. Stool for ova and parasites along with enteric bacteriology is pending. - Physical Exam General: Alert, Cooperative, - - Frail and cachectic in appearance. HEENT: Atraumatic, PERRLA, Normocephalic Oral: Dry Mucosa Neck: Supple, No Nodes, Trachea Midline Lungs: No rhonchi, No wheeze, No rales, Diminished Cardiovascular: Regular rate, Regular Rhythm, Normal S1, Normal S2, No murmurs Abdomen: Bowel Sounds Present, Soft, Non Tender Extremities: No cyanosis, No edema, Clubbing Skin: No breakdown Musculoskeletal: Cachexia, Muscle Wasting Lymphatic: No Cervical, Supraclavicular, or Inguinal Adenopathy Neurological: Cranial nerves II-XII grossly intact, Neuro grossly intact Psych/Mental Status: Flat Affect Vital Signs Temp Pulse Resp BP Pulse Ox 36.7 C 84 16 83/70 L 100 06/21/18 08:00 06/21/18 08:00 06/21/18 08:00 06/21/18 08:00 06/21/18 08:00 Oxygen Delivery Method Room Air Weight: 111 lb 8.862 oz Body Mass Index (BMI) 17.1 Intake and Output for Last 24 Hours 06/19/18 06/20/18 06/21/18 23:59 23:59 23:59 Intake Total 1430.8 / 1430.8 1551.6 / 1551.6 Output Total 200 / 200 500 / 500 Balance 1230.8 / 1230.8 1051.6 / 1051.6 Microbiology Past 72 Hours 06/20/18 20:10 C. difficile DNA Amplification - Final Stool Toxigenic C. difficile DNA Laboratory Tests Past 24 Hrs 06/20/18 06/20/18 06/20/18 16:15 16:15 16:15 WBC 14.2 H RBC 3.96 L Hgb 11.8 L Hct 33.5 L MCV 84.6 MCH 29.8 MCHC 35.2 RDW 18.5 H RDW Differential 57.2 H Plt Count 255 MPV 8.8 Sodium 132 L Potassium 1.5 L* Chloride 104 Carbon Dioxide 14.0 L Anion Gap 14 BUN 28 H Creatinine 0.91 Estim Creat Clear Calc 54.67 Est GFR (MDRD) Af Amer 83 Est GFR (MDRD) Non-Af 68 BUN/Creatinine Ratio 30.7 H Glucose 79 Lactic Acid 0.8 Calcium 8.4 L Phosphorus Magnesium Total Bilirubin 0.70 AST 11 L ALT 18 Alkaline Phosphatase 97 Total Protein 6.9 Albumin 3.0 L Globulin 3.9 Albumin/Globulin Ratio 0.8 L Urine Color Urine Clarity Urine pH Ur Specific [place] Urine Protein Urine Glucose (UA) Urine Ketones Urine Occult Blood Urine Nitrite Urine Bilirubin Urine Urobilinogen Ur Leukocyte Esterase Urine RBC Urine WBC Ur Squamous Epith Cells Urine Bacteria Urine Mucus 06/20/18 06/20/18 06/21/18 18:30 20:10 02:35 WBC RBC Hgb Hct MCV MCH MCHC RDW RDW Differential Plt Count MPV Sodium 137 142 Potassium 1.7 L* 1.9 L* Chloride 112 H 115 H Carbon Dioxide 10.0 L 11.0 L Anion Gap 15 16 H BUN 26 H 23 H Creatinine 0.74 0.74 Estim Creat Clear Calc 65.99 65.99 Est GFR (MDRD) Af Amer 106 106 Est GFR (MDRD) Non-Af 87 87 BUN/Creatinine Ratio 35.2 H 31.2 H Glucose 78 84 Lactic Acid Calcium 7.1 L 6.9 L Phosphorus 4.8 Magnesium 2.2 Total Bilirubin AST ALT Alkaline Phosphatase Total Protein Albumin Globulin Albumin/Globulin Ratio Urine Color Yellow Urine Clarity Clear Urine pH 7.0 Ur Specific [place] 1.005 Urine Protein 100 H Urine Glucose (UA) Normal Urine Ketones 5 H Urine Occult Blood 10 H Urine Nitrite Negative Urine Bilirubin Negative Urine Urobilinogen Normal Ur Leukocyte Esterase Negative Urine RBC 0-5 SEEN Urine WBC 0-5 SEEN Ur Squamous Epith Cells 0-5 SEEN Urine Bacteria 0 SEEN Urine Mucus 0 SEEN 06/21/18 06/21/18 06/21/18 02:35 04:10 08:30 WBC 11.3 H RBC 3.13 L Hgb 9.4 L Hct 26.3 L MCV 84.0 MCH 30.0 MCHC 35.7 RDW 18.3 H RDW Differential 54.0 H Plt Count 241 MPV 8.6 Sodium Potassium Pending Chloride Carbon Dioxide Anion Gap BUN Creatinine Estim Creat Clear Calc Est GFR (MDRD) Af Amer Est GFR (MDRD) Non-Af BUN/Creatinine Ratio Glucose Lactic Acid Calcium Phosphorus 4.8 Magnesium 2.2 Total Bilirubin AST ALT Alkaline Phosphatase Total Protein Albumin Globulin Albumin/Globulin Ratio Urine Color Urine Clarity Urine pH Ur Specific [place] Urine Protein Urine Glucose (UA) Urine Ketones Urine Occult Blood Urine Nitrite Urine Bilirubin Urine Urobilinogen Ur Leukocyte Esterase Urine RBC Urine WBC Ur Squamous Epith Cells Urine Bacteria Urine Mucus Clinical Impression(s) from Imaging Studies Chest X-Ray 06/20/18 16:32 IMPRESSION: No change. No definite mass or acute chest disease. Electronically Signed: Farooq Fountain MD at 16:56 EST , Service support , Clinical Impression(s) from Imaging Studies Chest X-Ray 06/20/18 16:32 IMPRESSION: No change. No definite mass or acute chest disease. Electronically Signed: Farooq Fountain MD at 16:56 EST , Service support , Assessment/Plan RECOMMENDATIONS: 1. Continue current supportive measures with IV volume resuscitation and aggressive electrolyte repletion. 2. Continue stress dose steroids. 3. Start p.o. vancomycin for C. difficile colitis. 4. Continue scheduled bronchodilators. 5. Continue nicotine replacement therapy. 6. Consider transfer to [facility] for evaluation by the patient's oncologist and endocrinology. IMPRESSIONS: 1. Hypovolemic shock coupled with probable adrenal insufficiency This is now the patient's third hospitalization for similar issues. During each of the patient's prior hospitalizations, she presented with profound hypovolemia and electrolyte disturbances, in the setting of noninfectious gastrointestinal losses. It was initially felt that her GI losses may be the consequence of the immunotherapy she is receiving through the [facility] for her small cell lung cancer. However, the patient was noted to be positive during this hospital admission for C. difficile. Regardless, the patient always responds to IV volume resuscitation and stress dose steroids. She did have an abnormal cosyntropin stimulation test during her previous hospitalization and was supposed to follow-up with endocrinology, but failed to do so. At the current time, the patient's hemodynamics have responded favorably to volume expansion and stress dose steroids. At this point, given the recurrent nature of the patient's hospitalizations, I have recommended consideration for transfer to the [facility] for evaluation by the patient's oncologist and endocrinology. 2. Small cell lung cancer The patient was diagnosed with limited stage small cell lung cancer in 2014. She underwent concurrent chemoradiation wtih cisplatin/etoposide and completed prophylactic intracranial irradiation. She presented with local recurrent disease in 2016. Biopsy of LIMA on 04/17/17 was positive for small cell carcinoma. She has since progressed through 3 additional cycles of cisplatin/etoposide, topotecan and weekly paclitaxel. Began nivolumab and ipilimumab on 03/03/18 under the care of Dr. Cabral at [facility]. 3. Hypovolemic hyponatremia/hypokalemia Continue IV volume resuscitation and aggressive electrolyte repletion. 4. C. difficile colitis The patient will be placed on p.o. vancomycin. 5. Severe protein calorie malnutrition/debility/bipolar disorder/ongoing tobacc o dependence Complicates care, management, recovery and prognosis. Continue nicotine replacement therapy. Smoking cessation is advisable. Nutrition team is following. Physical therapy to evaluate patient. This note was generated with [employer] software. It may contain incorrect words, spelling, and punctuation that were not noted in checking the note before signing. Code Visit Inpatient E&M: 93099 Init Hosp L3
[2018-06-21 09:00] LABS: Potassium 1.9 mmol/L (3.5-5.1)
--- NOTE | 2018-06-21 10:07 | CASEMGMT ---
RN CM Note -Per interdisciplinary rounds, consideration is being given to transfer pt to [facility] due to suspected adrenal insufficiency and is followed by [facility] oncology. -Recent admission to [facility] in [place] after dc from [facility] on 06/02/18. Recent admission to [place] ICU, then home. -call received from [facility] Transition nurse JENNIFER Crook . Updated that pt may transfer to [facility]. She will follow up. Discussed whether Palliative Care/Hospice had been approached with pt and per Ambreen she had this discussion, however pt stated she wasn't ready for either service yet. Pt was not managing well at home per her assessment. Per Ambreen, she will attempt to have an retail maintenance technician assigned to pt for f/u after dc from [facility] or [facility]. -DC Planning deferred @ this time pending transfer to [facility]. Yamil PHILIPN RN ACM
[2018-06-21] MEDS: Lactated Ringers 1,000 ML 999 ML IV (10:36)
[2018-06-21] MEDS: Heparin Injection (Vial) 5,000 UNIT/ML VIAL 5000 UNIT SC (10:37)
[2018-06-21] MEDS: Pantoprazole Sodium 20 MG Tablet PO ×2 (10:39→21:17)
[2018-06-21 12:30] LABS: Potassium 2.5 mmol/L (3.5-5.1)
--- NOTE | 2018-06-21 13:57 | CASEMGMT ---
LW/POA forms in [facility], SW printed and placed in paper chart. They were completed earlier this year. GIL Bolton, TEACHER SELECTION SPECIALIST
--- NOTE | 2018-06-21 16:11 | PCM.PN.HOSP ---
Subjective: Patient seen and examined. She was admitted with a complaint of generalized weakness and poor p.o. intake and was found to have hypotension. She has a history of small cell lung cancer and COPD and has been following up with Dr. Mckeon. She also has immunotherapy through [facility] at the [facility] cancer center. She was started on IV fluids and was noted to have potassium of 1.5 on admission and this was aggressively replaced. Patient seen and examined this morning. She was lethargic and lying in bed . Has had no complaints. She could not tell me what had brought into the hospital and just told me when we figured out we should let her know. She denied any headache or blurred vision, chest pain, abdominal pain, diarrhea vomiting. Review of systems is otherwise negative. Case discussed with shirt line operator. Patient was recently admitted at [facility] for similar complaint and was kept in the ICU for about a week. She was supposed to follow-up with endocrinology but has not been able to do so because she is always in and out of hospital for the exact same results. He suspects that she might have adrenal insufficiency. On account of is having no bpm analyst here, decision was made to transfer patient to [facility]. Currently awaiting bed. Vitals/I&O's: Vital Signs Temp Pulse Resp BP Pulse Ox 98.0 F 90 20 H 100/71 100 06/21/18 12:00 06/21/18 15:00 06/21/18 15:00 06/21/18 15:00 06/21/18 15:00 Oxygen Delivery Method Room Air Weight: 111 lb 8.862 oz Body Mass Index (BMI) 17.1 Intake and Output for Last 24 Hours 06/19/18 06/20/18 06/21/18 23:59 23:59 23:59 Intake Total 1430.8 / 1430.8 1797.6 / 1797.6 Output Total 200 / 200 700 / 700 Balance 1230.8 / 1230.8 1097.6 / 1097.6 General: Alert, Oriented x3, Cooperative, Lethargic HEENT: Atraumatic, PERRLA, EOMI, Normocephalic Oral: Moist Mucosa Neck: Supple, No JVD, Negative Carotid Bruits Lungs: Clear to auscultation, Normal air movement, No rhonchi, No wheeze, No rales Cardiovascular: Regular rate, Regular Rhythm, Normal S1, Normal S2, No murmurs Abdomen: Bowel Sounds Present, Soft, Non Tender, Non-Distended, No Hepato-splenomegaly Extremities: No clubbing, No cyanosis, No edema, Capillary Refill Less than 3 Seconds Skin: No rashes, No breakdown Musculoskeletal: No Tenderness to Palpation of Joints or Extremities Lymphatic: No Cervical, Supraclavicular, or Inguinal Adenopathy Neurological: Cranial nerves II-XII grossly intact Psych/Mental Status: Normal Affect, Appropriate, Alert and oriented to time, place, person, mood and affect Microbiology Past 72 Hours 06/21/18 04:15 Stool Enteric Bacteriology - Final 06/20/18 20:10 Stool C. difficile DNA Amplification - Final Toxigenic C. difficile DNA Laboratory Results 06/20/18 16:15: Lactic Acid 0.8 06/20/18 16:15: WBC 14.2 H, RBC 3.96 L, Hgb 11.8 L, Hct 33.5 L, MCV 84.6, MCH 29.8, MCHC 35.2, RDW 18.5 H, RDW Differential 57.2 H, Plt Count 255, MPV 8.8 06/20/18 16:15: Sodium 132 L, Potassium 1.5 L*, Chloride 104, Carbon Dioxide 14.0 L, Anion Gap 14, BUN 28 H, Creatinine 0.91, Estim Creat Clear Calc 54.67, Est GFR (MDRD) Af Amer 83, Est GFR (MDRD) Non-Af 68, BUN/Creatinine Ratio 30.7 H, Glucose 79, Calcium 8.4 L, Total Bilirubin 0.70, AST 11 L, ALT 18, Alkaline Phosphatase 97, Total Protein 6.9, Albumin 3.0 L, Globulin 3.9, Albumin/Globulin Ratio 0.8 L 06/20/18 18:30: Urine Color Yellow, Urine Clarity Clear, Urine pH 7.0, Ur Specific [place] 1.005, Urine Protein 100 H, Urine Glucose (UA) Normal, Urine Ketones 5 H, Urine Occult Blood 10 H, Urine Nitrite Negative, Urine Bilirubin Negative, Urine Urobilinogen Normal, Ur Leukocyte Esterase Negative, Urine RBC 0-5 SEEN, Urine WBC 0-5 SEEN, Ur Squamous Epith Cells 0-5 SEEN, Urine Bacteria 0 SEEN, Urine Mucus 0 SEEN 06/20/18 20:10: Sodium 137, Potassium 1.7 L*, Chloride 112 H, Carbon Dioxide 10.0 L, Anion Gap 15, BUN 26 H, Creatinine 0.74, Estim Creat Clear Calc 65.99, Est GFR (MDRD) Af Amer 106, Est GFR (MDRD) Non-Af 87, BUN/Creatinine Ratio 35.2 H, Glucose 78, Calcium 7.1 L, Phosphorus 4.8, Magnesium 2.2 06/21/18 02:35: Sodium 142, Potassium 1.9 L*, Chloride 115 H, Carbon Dioxide 11.0 L, Anion Gap 16 H, BUN 23 H, Creatinine 0.74, Estim Creat Clear Calc 65.99, Est GFR (MDRD) Af Amer 106, Est GFR (MDRD) Non-Af 87, BUN/Creatinine Ratio 31.2 H, Glucose 84, Calcium 6.9 L 06/21/18 02:35: Phosphorus 4.8, Magnesium 2.2 06/21/18 04:10: WBC 11.3 H, RBC 3.13 L, Hgb 9.4 L, Hct 26.3 L, MCV 84.0, MCH 30.0, MCHC 35.7, RDW 18.3 H, RDW Differential 54.0 H, Plt Count 241, MPV 8.6 06/21/18 08:30: Potassium 1.9 L* 06/21/18 08:30: Troponin I < 0.015 06/21/18 12:00: Potassium 2.5 L* Diagnostic Data Chest X-Ray 06/20/18 16:32 IMPRESSION: No change. No definite mass or acute chest disease. Electronically Signed: Farooq Fountain MD at 16:56 EST , Service support , Current Medications Al Hydroxide/Mg Hydroxide (Mylanta Ii) 30 ml PO Q6H PRN PRN PRN Reason: Gastric burning Albuterol Sulfate (Ventolin Aerosols) 2.5 mg INHALATION Q2H PRN PRN PRN Reason: dyspnea, wheezing Albuterol/Ipratropium (Duoneb) 3 ml INHALATION Q6HWA.RT [place]CR[place] Last Admin: 06/21/18 13:17 Dose: Not Given Calamine/Phenol (Calmoseptine Ointment) 1 applic TOPICAL TID [facility]; Protocol Last Admin: 06/21/18 05:19 Dose: 1 applicatio Cyclobenzaprine HCl (Cyclobenzaprine Hcl) 5 mg PO TID PRN PRN PRN Reason: BACK SPASMS Diazepam (Valium) 10 mg PO BID PRN PRN Reason: ANXIETY Heparin Sodium (Beef Lung) () 50 units IV UD PRN PRN Reason: HEPARIN FLUSH Heparin Sodium (Porcine) (Heparin Na) 5,000 unit SC Q12 [facility] Last Admin: 06/21/18 10:37 Dose: 5,000 unit Hydrocortisone Sodium Succinate (Solu-Cortef) 100 mg IV Q8 [facility] Last Admin: 06/21/18 14:17 Dose: 100 mg Sodium Chloride () 1,000 mls @ 150 mls/hr IV .[id number] [facility] Last Admin: 06/21/18 12:58 Dose: 150 mls/hr Sodium Chloride () 250 mls @ 15 mls/hr IV .[id number] PRN PRN Reason: SALINE FLUSH Norepinephrine Bitartrate 8 mg (/ Dextrose) 258 mls @ 9.68 mls/hr IV .[id number] [facility]; Protocol Last Admin: 06/20/18 22:10 Dose: 9.68 mls/hr Loperamide HCl (Imodium) 2 mg PO Q4H PRN PRN PRN Reason: Diarrhea Magnesium Hydroxide (Milk Of Magnesia) 30 ml PO DAILY PRN PRN PRN Reason: Constipation Mirtazapine (Remeron) 30 mg PO HS [facility] Last Admin: 06/20/18 22:09 Dose: 30 mg Nicotine (Nicoderm Cq (Pbkc)) 21 mg TRANSDERM. DAILY [facility] Last Admin: 06/21/18 10:39 Dose: 21 mg Nutritional Formula (Lactose Free) (Ensure Enlive) 120 ml PO 4X/DAY [facility] Last Admin: 06/21/18 14:16 Dose: 120 ml Ondansetron HCl (Zofran) 4 mg IV Q8H PRN PRN PRN Reason: NAUSEA Oxycodone HCl (Oxyir) 5 mg PO Q6H PRN PRN PRN Reason: PAIN Pantoprazole Sodium (Protonix) 20 mg PO BID [facility] Last Admin: 06/21/18 10:39 Dose: 20 mg Potassium Chloride (K-Dur) 40 meq PO BIDCM [facility] Last Admin: 06/21/18 08:32 Dose: 40 meq Promethazine HCl (Phenergan) 12.5 mg IV Q6H PRN PRN PRN Reason: NAUSEA/VOMITING Sodium Bicarbonate (Sodium Bicarbonate) 650 mg PO TID [facility] Last Admin: 06/21/18 14:17 Dose: 650 mg Sodium Chloride () 5 - 30 ml IV UD PRN PRN Reason: SALINE FLUSH Last Admin: 06/21/18 14:18 Dose: 10 ml Vancomycin HCl () 125 mg PO Q6 [facility] Last Admin: 06/21/18 12:57 Dose: 125 mg Medical Necessity - Tobacco Use Smoking Status: Former smoker Tobacco Use: Non-smoker Assessment/Plan All Active Problems (Last Reviewed 05/16/18 @ 20:50 by Sohan Waddell MD) Acute kidney injury (Acute) Hypokalemia (Acute) Abnormal EKG (Acute) Hyponatremia (Acute) Nausea vomiting and diarrhea (Acute) Severe dehydration (Acute) Cardiac arrest (Acute) Periodontal disease (Acute) Nausea & vomiting (Acute) Headache (Acute) Encounter for adjustment or management of vascular access device (Acute) Regional lymph node metastasis present (Acute) Lung metastasis (Acute) 1. Hypotension may be due to suspected adrenal insufficiency and possibly hypovolemic shock due to GI losses had diarrhea and tested positive for C Diff. being hydrated with IVF NS. Hasnt required pressors. on IV steroids stress dose. needs to be followed up by endocrinology- decision made to transfer patient to [facility] in [facility] thats where she sees her oncologist. Transfer initiated 2. C diff infection admitted with recurrent diarrhea; thought to be possibly due to immunotherapy. Tested positive for C Diff on PO vancomycin isolation precautions 3. Small cell lung cancer Diagnosed in 2014. Is currently undergoing chemotherapy. Follows up with oncologist at [facility] to follow up with oncologist upon transfer 4. Severe hypokalemia K was 1.5 on admission; aggressively replaced Likely compounded by GI losses Potassium today was up to 2.5. We will continue aggressive replacement. 5. Hyponatremia: Resolved. Sodium was 132 on admission and was 142 and subsequently this morning. 6. Severe protein calorie malnutrition nutrition on board. Likely complicated by malignancy and chemotherapy 7. COPD: on breathing treatments. DVT prophylaxis: heparin Code status: Full code DIsposition: for transfer to [facility]. Code Visit Inpatient E&M: 91152 Subs Hosp L3
--- NOTE | 2018-06-21 16:16 | PN_ITS ---
Subjective: Patient seen and examined. She was admitted with a complaint of generalized weakness and poor p.o. intake and was found to have hypotension. She has a history of small cell lung cancer and COPD and has been following up with Dr. Mckeon. She also has immunotherapy through [facility] at the [facility] cancer center. She was started on IV fluids and was noted to have potassium of 1.5 on admission and this was aggressively replaced. Patient seen and examined this morning. She was lethargic and lying in bed . Has had no complaints. She could not tell me what had brought into the hospital and just told me when we figured out we should let her know. She denied any headache or blurred vision, chest pain, abdominal pain, diarrhea vomiting. Review of systems is otherwise negative. Case discussed with drywall sander. Patient was recently admitted at [facility] for similar complaint and was kept in the ICU for about a week. She was supposed to follow-up with endocrinology but has not been able to do so because she is always in and out of hospital for the exact same results. He suspects that she might have adrenal insufficiency. On account of is having no tennis ball coverer hand here, decision was made to transfer patient to [facility]. Currently awaiting bed. Vitals/I&O's: Vital Signs Temp Pulse Resp BP Pulse Ox 98.0 F 90 20 H 100/71 100 06/21/18 12:00 06/21/18 15:00 06/21/18 15:00 06/21/18 15:00 06/21/18 15:00 Oxygen Delivery Method Room Air Weight: 111 lb 8.862 oz Body Mass Index (BMI) 17.1 Intake and Output for Last 24 Hours 06/19/18 06/20/18 06/21/18 23:59 23:59 23:59 Intake Total 1430.8 / 1430.8 1797.6 / 1797.6 Output Total 200 / 200 700 / 700 Balance 1230.8 / 1230.8 1097.6 / 1097.6 General: Alert, Oriented x3, Cooperative, Lethargic HEENT: Atraumatic, PERRLA, EOMI, Normocephalic Oral: Moist Mucosa Neck: Supple, No JVD, Negative Carotid Bruits Lungs: Clear to auscultation, Normal air movement, No rhonchi, No wheeze, No rales Cardiovascular: Regular rate, Regular Rhythm, Normal S1, Normal S2, No murmurs Abdomen: Bowel Sounds Present, Soft, Non Tender, Non-Distended, No Hepato-splen omegaly Extremities: No clubbing, No cyanosis, No edema, Capillary Refill Less than 3 Seconds Skin: No rashes, No breakdown Musculoskeletal: No Tenderness to Palpation of Joints or Extremities Lymphatic: No Cervical, Supraclavicular, or Inguinal Adenopathy Neurological: Cranial nerves II-XII grossly intact Psych/Mental Status: Normal Affect, Appropriate, Alert and oriented to time, place, person, mood and affect Microbiology Past 72 Hours 06/21/18 04:15 Stool Enteric Bacteriology - Final 06/20/18 20:10 Stool C. difficile DNA Amplification - Final Toxigenic C. difficile DNA Laboratory Results 06/20/18 16:15: Lactic Acid 0.8 06/20/18 16:15: WBC 14.2 H, RBC 3.96 L, Hgb 11.8 L, Hct 33.5 L, MCV 84.6, MCH 29.8, MCHC 35.2, RDW 18.5 H, RDW Differential 57.2 H, Plt Count 255, MPV 8.8 06/20/18 16:15: Sodium 132 L, Potassium 1.5 L*, Chloride 104, Carbon Dioxide 14.0 L, Anion Gap 14, BUN 28 H, Creatinine 0.91, Estim Creat Clear Calc 54.67, Est GFR (MDRD) Af Amer 83, Est GFR (MDRD) Non-Af 68, BUN/Creatinine Ratio 30.7 H , Glucose 79, Calcium 8.4 L, Total Bilirubin 0.70, AST 11 L, ALT 18, Alkaline Phosphatase 97, Total Protein 6.9, Albumin 3.0 L, Globulin 3.9, Albumin/Globulin Ratio 0.8 L 06/20/18 18:30: Urine Color Yellow, Urine Clarity Clear, Urine pH 7.0, Ur Specific [place] 1.005, Urine Protein 100 H, Urine Glucose (UA) Normal, Urine K etones 5 H, Urine Occult Blood 10 H, Urine Nitrite Negative, Urine Bilirubin Negative, Urine Urobilinogen Normal, Ur Leukocyte Esterase Negative, Urine RBC 0-5 SEEN, Urine WBC 0-5 SEEN, Ur Squamous Epith Cells 0-5 SEEN, Urine Bacteria 0 SEEN, Urine Mucus 0 SEEN 06/20/18 20:10: Sodium 137, Potassium 1.7 L*, Chloride 112 H, Carbon Dioxide 10.0 L, Anion Gap 15, BUN 26 H, Creatinine 0.74, Estim Creat Clear Calc 65.99, Est GFR (MDRD) Af Amer 106, Est GFR (MDRD) Non-Af 87, BUN/Creatinine Ratio 35.2 H, Glucose 78, Calcium 7.1 L, Phosphorus 4.8, Magnesium 2.2 06/21/18 02:35: Sodium 142, Potassium 1.9 L*, Chloride 115 H, Carbon Dioxide 11.0 L, Anion Gap 16 H, BUN 23 H, Creatinine 0.74, Estim Creat Clear Calc 65.99, Est GFR (MDRD) Af Amer 106, Est GFR (MDRD) Non-Af 87, BUN/Creatinine Ratio 31.2 H, Glucose 84, Calcium 6.9 L 06/21/18 02:35: Phosphorus 4.8, Magnesium 2.2 06/21/18 04:10: WBC 11.3 H, RBC 3.13 L, Hgb 9.4 L, Hct 26.3 L, MCV 84.0, MCH 30.0, MCHC 35.7, RDW 18.3 H, RDW Differential 54.0 H, Plt Count 241, MPV 8.6 06/21/18 08:30: Potassium 1.9 L* 06/21/18 08:30: Troponin I < 0.015 06/21/18 12:00: Potassium 2.5 L* Diagnostic Data Chest X-Ray 06/20/18 16:32 IMPRESSION: No change. No definite mass or acute chest disease. Electronically Signed: Farooq Fountain MD at 16:56 EST , Service support , Current Medications Al Hydroxide/Mg Hydroxide (Mylanta Ii) 30 ml PO Q6H PRN PRN PRN Reason: Gastric burning Albuterol Sulfate (Ventolin Aerosols) 2.5 mg INHALATION Q2H PRN PRN PRN Reason: dyspnea, wheezing Albuterol/Ipratropium (Duoneb) 3 ml INHALATION Q6HWA.RT [place] Last Admin: 06/21/18 13:17 Dose: Not Given Calamine/Phenol (Calmoseptine Ointment) 1 applic TOPICAL TID [facility]; Protocol Last Admin: 06/21/18 05:19 Dose: 1 applicatio Cyclobenzaprine HCl (Cyclobenzaprine Hcl) 5 mg PO TID PRN PRN PRN Reason: BACK SPASMS Diazepam (Valium) 10 mg PO BID PRN PRN Reason: ANXIETY Heparin Sodium (Beef Lung) () 50 units IV UD PRN PRN Reason: HEPARIN FLUSH Heparin Sodium (Porcine) (Heparin Na) 5,000 unit SC Q12 [facility] Last Admin: 06/21/18 10:37 Dose: 5,000 unit Hydrocortisone Sodium Succinate (Solu-Cortef) 100 mg IV Q8 [facility] Last Admin: 06/21/18 14:17 Dose: 100 mg Sodium Chloride () 1,000 mls @ 150 mls/hr IV .[id number] [facility] Last Admin: 06/21/18 12:58 Dose: 150 mls/hr Sodium Chloride () 250 mls @ 15 mls/hr IV .[id number] PRN PRN Reason: SALINE FLUSH Norepinephrine Bitartrate 8 mg (/ Dextrose) 258 mls @ 9.68 mls/hr IV .[id number] [facility]; Protocol Last Admin: 06/20/18 22:10 Dose: 9.68 mls/hr Loperamide HCl (Imodium) 2 mg PO Q4H PRN PRN PRN Reason: Diarrhea Magnesium Hydroxide (Milk Of Magnesia) 30 ml PO DAILY PRN PRN PRN Reason: Constipation Mirtazapine (Remeron) 30 mg PO HS [facility] Last Admin: 06/20/18 22:09 Dose: 30 mg Nicotine (Nicoderm Cq (Pbkc)) 21 mg TRANSDERM. DAILY [facility] Last Admin: 06/21/18 10:39 Dose: 21 mg Nutritional Formula (Lactose Free) (Ensure Enlive) 120 ml PO 4X/DAY [facility] Last Admin: 06/21/18 14:16 Dose: 120 ml Ondansetron HCl (Zofran) 4 mg IV Q8H PRN PRN PRN Reason: NAUSEA Oxycodone HCl (Oxyir) 5 mg PO Q6H PRN PRN PRN Reason: PAIN Pantoprazole Sodium (Protonix) 20 mg PO BID [facility] Last Admin: 06/21/18 10:39 Dose: 20 mg Potassium Chloride (K-Dur) 40 meq PO BIDCM [facility] Last Admin: 06/21/18 08:32 Dose: 40 meq Promethazine HCl (Phenergan) 12.5 mg IV Q6H PRN PRN PRN Reason: NAUSEA/VOMITING Sodium Bicarbonate (Sodium Bicarbonate) 650 mg PO TID [facility] Last Admin: 06/21/18 14:17 Dose: 650 mg Sodium Chloride () 5 - 30 ml IV UD PRN PRN Reason: SALINE FLUSH Last Admin: 06/21/18 14:18 Dose: 10 ml Vancomycin HCl () 125 mg PO Q6 [facility] Last Admin: 06/21/18 12:57 Dose: 125 mg Medical Necessity - Tobacco Use Smoking Status: Former smoker Tobacco Use: Non-smoker Assessment/Plan All Active Problems (Last Reviewed 05/16/18 @ 20:50 by Sohan Waddell MD) Acute kidney injury (Acute) Hypokalemia (Acute) Abnormal EKG (Acute) Hyponatremia (Acute) Nausea vomiting and diarrhea (Acute) Severe dehydration (Acute) Cardiac arrest (Acute) Periodontal disease (Acute) Nausea & vomiting (Acute) Headache (Acute) Encounter for adjustment or management of vascular access device (Acute) Regional lymph node metastasis present (Acute) Lung metastasis (Acute) 1. Hypotension * may be due to suspected adrenal insufficiency and possibly hypovolemic shock due to GI losses * had diarrhea and tested positive for C Diff. * being hydrated with IVF NS. Hasnt required pressors. * on IV steroids stress dose. * needs to be followed up by endocrinology- decision made to transfer patient to [facility] in [facility] thats where she sees her oncologist. * Transfer initiated * 2. C diff infection * admitted with recurrent diarrhea; thought to be possibly due to immunotherapy. Tested positive for C Diff * on PO vancomycin * isolation precautions * 3. Small cell lung cancer * Diagnosed in 2014. Is currently undergoing chemotherapy. Follows up with oncologist at [facility] * to follow up with oncologist upon transfer * 4. Severe hypokalemia * K was 1.5 on admission; aggressively replaced * Likely compounded by GI losses * Potassium today was up to 2.5. We will continue aggressive replacement. * 5. Hyponatremia: Resolved. Sodium was 132 on admission and was 142 and subsequently this morning. 6. Severe protein calorie malnutrition * nutrition on board. Likely complicated by malignancy and chemotherapy 7. COPD: on breathing treatments. DVT prophylaxis: heparin Code status: Full code DIsposition: for transfer to [facility]. Code Visit Inpatient E&M: 11159 Subs Hosp L3
[2018-06-21 18:07] LABS: Potassium 2.4 mmol/L (3.5-5.1)
[2018-06-21] MEDS: Mirtazapine 30 MG Tablet PO (21:17)
[2018-06-21 23:29] LABS: Anion Gap 10 (5-15); BUN 13 mg/dL (7-18); BUN/Creat Ratio 22.3 RATIO (10-20); Calcium,Total 7.2 mg/dL (8.5-10.1); Chloride 121 mmol/L (98-107); Creatinine, Serum 0.58 mg/dL (0.55-1.02); EST Glomerular Filtration Rate 114 mL/min (>60); Est Glom Filt Rate - Afr Amer 138 mL/min (>60); Estimated Creatinine Clearance 88.57 ml/min; Glucose 105 mg/dL (74-106); Potassium 2.4 mmol/L (3.5-5.1); Sodium Level 143 mmol/L (136-145)
[2018-06-22] VITALS (17 sets, daily range): BP systolic 90–132; BP diastolic 62–86; PULSE 83–91; RESP 14–23; TEMP 36.3–36.8; O2SAT 96–100
[2018-06-22] MEDS: 0.9% NaCl Peripheral Flush Adult/Peds IV (00:48)
[2018-06-22] MEDS: 0.9% Normal Saline 1,000 ML 150 ML IV ×3 (02:26→14:16)
[2018-06-22] MEDS: Sodium Bicarbonate 650 MG Tablet PO ×2 (05:14→14:17)
[2018-06-22] MEDS: Hydrocortisone Sod Succinate 100 MG/2 ML Vial IV ×2 (05:15→14:16)
[2018-06-22] MEDS: Menthol/Lanolin/Calamine/Znox 113 GM Tube 1 APPLIC TOPICAL ×2 (05:15→14:17)
[2018-06-22 05:36] LABS: Hemoglobin 7.4 g/dl (12.0-15.0); Mean Corp Hgb Conc 35.2 g/gl (32-36); Mean Corpuscular Hgb 30.1 pg (27.0-32.0); Mean Corpuscular Volume 85.4 fL (81-99); Mean Platelet Vol. 8.5 fl (6.2-12.0); Platelet Count 198 K/mm3 (150-450); RBC Distribution Width CV 18.7 % (11.6-14.6); RBC Distribution Width SD 56.4 fl (35.1-43.9); Red Blood Count 2.46 M/mm3 (4.2-5.4); Scan Indicated on CBC? Y/N NO; White Blood Count 7.3 K/mm3 (4.4-11.0)
[2018-06-22 05:50] LABS: Anion Gap 11 (5-15); BUN 10 mg/dL (7-18); BUN/Creat Ratio 15.8 RATIO (10-20); Calcium,Total 7.2 mg/dL (8.5-10.1); Chloride 123 mmol/L (98-107); Creatinine, Serum 0.63 mg/dL (0.55-1.02); EST Glomerular Filtration Rate 105 mL/min (>60); Est Glom Filt Rate - Afr Amer 126 mL/min (>60); Estimated Creatinine Clearance 87.18 ml/min; Glucose 100 mg/dL (74-106); Magnesium 1.9 mg/dL (1.6-2.6); Potassium 2.3 mmol/L (3.5-5.1); Sodium Level 146 mmol/L (136-145)
--- NOTE | 2018-06-22 06:53 | PN_ITS ---
Subjective: The patient was seen and examined at the bedside this morning. Events from the last 24 hours have been reviewed. The patient is currently afebrile, hemodynamically stable and maintaining appropriate oxygen saturations on room air. Potassium remains low this morning. The patient is still awaiting transfer to the [facility]. Objective: The patient's most recent lab work, culture data and imaging studies have all been personally reviewed. C. difficile was noted to be positive. Blood cultures are pending. Enteric bacteriology panel was negative. Stool for ova and parasites is pending. General: Alert, Cooperative, No apparent distress, - - Frail and cachectic in appearance. HEENT: Atraumatic, PERRLA, Normocephalic Oral: No Gingival or Mucosal Lesions/ Ulcerations Neck: Supple, No Nodes, Trachea Midline Lungs: No rhonchi, No wheeze, No rales, Diminished Cardiovascular: Regular rate, Regular Rhythm, Normal S1, Normal S2, No murmurs, - - Stable chest wall port Abdomen: Bowel Sounds Present, Soft, Non Tender Extremities: No cyanosis, No edema, Clubbing Skin: - - No significant change from previous. Musculoskeletal: No Tenderness to Palpation of Joints or Extremities, Cachexia, Muscle Wasting Lymphatic: No Cervical, Supraclavicular, or Inguinal Adenopathy Neurological: Cranial nerves II-XII grossly intact, Neuro grossly intact Psych/Mental Status: Flat Affect Vital Signs Temp Pulse Resp BP Pulse Ox 36.6 C 85 18 117/84 H 100 06/22/18 00:00 06/22/18 06:00 06/22/18 06:00 06/22/18 06:00 06/22/18 06:00 Oxygen Delivery Method Room Air Weight: 119 lb 4.321 oz Body Mass Index (BMI) 17.1 Intake and Output for Last 24 Hours 06/20/18 06/21/18 06/22/18 23:59 23:59 23:59 Intake Total 1430.8 / 1430.8 4943.6 / 4943.6 2340 / 2340 Output Total 200 / 200 700 / 700 Balance 1230.8 / 1230.8 4243.6 / 4243.6 2340 / 2340 Labs (Last 48 Hours) 06/20/18 06/20/18 06/20/18 16:15 16:15 16:15 WBC 14.2 H RBC 3.96 L Hgb 11.8 L Hct 33.5 L MCV 84.6 MCH 29.8 MCHC 35.2 RDW 18.5 H RDW Differential 57.2 H Plt Count 255 MPV 8.8 Sodium 132 L Potassium 1.5 L* Chloride 104 Carbon Dioxide 14.0 L Anion Gap 14 BUN 28 H Creatinine 0.91 Estim Creat Clear Calc 54.67 Est GFR (MDRD) Af Amer 83 Est GFR (MDRD) Non-Af 68 BUN/Creatinine Ratio 30.7 H Glucose 79 Lactic Acid 0.8 Calcium 8.4 L Phosphorus Magnesium Total Bilirubin 0.70 AST 11 L ALT 18 Alkaline Phosphatase 97 Troponin I Total Protein 6.9 Albumin 3.0 L Globulin 3.9 Albumin/Globulin Ratio 0.8 L Urine Color Urine Clarity Urine pH Ur Specific Jayess Urine Protein Urine Glucose (UA) Urine Ketones Urine Occult Blood Urine Nitrite Urine Bilirubin Urine Urobilinogen Ur Leukocyte Esterase Urine RBC Urine WBC Ur Squamous Epith Cells Urine Bacteria Urine Mucus 06/20/18 06/20/18 06/21/18 18:30 20:10 02:35 WBC RBC Hgb Hct MCV MCH MCHC RDW RDW Differential Plt Count MPV Sodium 137 142 Potassium 1.7 L* 1.9 L* Chloride 112 H 115 H Carbon Dioxide 10.0 L 11.0 L Anion Gap 15 16 H BUN 26 H 23 H Creatinine 0.74 0.74 Estim Creat Clear Calc 65.99 65.99 Est GFR (MDRD) Af Amer 106 106 Est GFR (MDRD) Non-Af 87 87 BUN/Creatinine Ratio 35.2 H 31.2 H Glucose 78 84 Lactic Acid Calcium 7.1 L 6.9 L Phosphorus 4.8 Magnesium 2.2 Total Bilirubin AST ALT Alkaline Phosphatase Troponin I Total Protein Albumin Globulin Albumin/Globulin Ratio Urine Color Yellow Urine Clarity Clear Urine pH 7.0 Ur Specific Jayess 1.005 Urine Protein 100 H Urine Glucose (UA) Normal Urine Ketones 5 H Urine Occult Blood 10 H Urine Nitrite Negative Urine Bilirubin Negative Urine Urobilinogen Normal Ur Leukocyte Esterase Negative Urine RBC 0-5 SEEN Urine WBC 0-5 SEEN Ur Squamous Epith Cells 0-5 SEEN Urine Bacteria 0 SEEN Urine Mucus 0 SEEN 06/21/18 06/21/18 06/21/18 02:35 04:10 08:30 WBC 11.3 H RBC 3.13 L Hgb 9.4 L Hct 26.3 L MCV 84.0 MCH 30.0 MCHC 35.7 RDW 18.3 H RDW Differential 54.0 H Plt Count 241 MPV 8.6 Sodium Potassium 1.9 L* Chloride Carbon Dioxide Anion Gap BUN Creatinine Estim Creat Clear Calc Est GFR (MDRD) Af Amer Est GFR (MDRD) Non-Af BUN/Creatinine Ratio Glucose Lactic Acid Calcium Phosphorus 4.8 Magnesium 2.2 Total Bilirubin AST ALT Alkaline Phosphatase Troponin I Total Protein Albumin Globulin Albumin/Globulin Ratio Urine Color Urine Clarity Urine pH Ur Specific Jayess Urine Protein Urine Glucose (UA) Urine Ketones Urine Occult Blood Urine Nitrite Urine Bilirubin Urine Urobilinogen Ur Leukocyte Esterase Urine RBC Urine WBC Ur Squamous Epith Cells Urine Bacteria Urine Mucus 06/21/18 06/21/18 06/21/18 08:30 12:00 17:20 WBC RBC Hgb Hct MCV MCH MCHC RDW RDW Differential Plt Count MPV Sodium Potassium 2.5 L* 2.4 L* Chloride Carbon Dioxide Anion Gap BUN Creatinine Estim Creat Clear Calc Est GFR (MDRD) Af Amer Est GFR (MDRD) Non-Af BUN/Creatinine Ratio Glucose Lactic Acid Calcium Phosphorus Magnesium Total Bilirubin AST ALT Alkaline Phosphatase Troponin I < 0.015 Total Protein Albumin Globulin Albumin/Globulin Ratio Urine Color Urine Clarity Urine pH Ur Specific Jayess Urine Protein Urine Glucose (UA) Urine Ketones Urine Occult Blood Urine Nitrite Urine Bilirubin Urine Urobilinogen Ur Leukocyte Esterase Urine RBC Urine WBC Ur Squamous Epith Cells Urine Bacteria Urine Mucus 06/21/18 06/22/18 06/22/18 22:55 05:25 05:25 WBC 7.3 RBC 2.46 L Hgb 7.4 L Hct 21.0 L MCV 85.4 MCH 30.1 MCHC 35.2 RDW 18.7 H RDW Differential 56.4 H Plt Count 198 MPV 8.5 Sodium 143 146 H Potassium 2.4 L* 2.3 L* Chloride 121 H 123 H Carbon Dioxide 12.0 L 12.0 L Anion Gap 10 11 BUN 13 10 Creatinine 0.58 0.63 Estim Creat Clear Calc 88.57 87.18 Est GFR (MDRD) Af Amer 138 126 Est GFR (MDRD) Non-Af 114 105 BUN/Creatinine Ratio 22.3 H 15.8 Glucose 105 100 Lactic Acid Calcium 7.2 L 7.2 L Phosphorus Magnesium 1.9 Total Bilirubin AST ALT Alkaline Phosphatase Troponin I Total Protein Albumin Globulin Albumin/Globulin Ratio Urine Color Urine Clarity Urine pH Ur Specific Jayess Urine Protein Urine Glucose (UA) Urine Ketones Urine Occult Blood Urine Nitrite Urine Bilirubin Urine Urobilinogen Ur Leukocyte Esterase Urine RBC Urine WBC Ur Squamous Epith Cells Urine Bacteria Urine Mucus Microbiology 06/21/18 04:15 Stool Enteric Bacteriology - Final 06/20/18 20:10 Stool C. difficile DNA Amplification - Final Toxigenic C. difficile DNA Clinical Impression(s) from Imaging Studies Chest X-Ray 06/20/18 16:32 IMPRESSION: No change. No definite mass or acute chest disease. Electronically Signed: Farooq Fountain MD at 16:56 EST , Service support , Medical Necessity - Tobacco Use Smoking Status: Former smoker Tobacco Use: Non-smoker Assessment/Plan All Active Problems (Last Reviewed 05/16/18 @ 20:50 by Sohan Waddell MD) Acute kidney injury (Acute) Hypokalemia (Acute) Abnormal EKG (Acute) Hyponatremia (Acute) Nausea vomiting and diarrhea (Acute) Severe dehydration (Acute) Cardiac arrest (Acute) Periodontal disease (Acute) Nausea & vomiting (Acute) Headache (Acute) Encounter for adjustment or management of vascular access device (Acute) Regional lymph node metastasis present (Acute) Lung metastasis (Acute) RECOMMENDATIONS: 1. Continue current supportive measures with IV volume resuscitation and aggressive electrolyte repletion. 2. Continue stress dose steroids. 3. Continue p.o. vancomycin for C. difficile colitis. 4. Continue scheduled bronchodilators. 5. Continue nicotine replacement therapy. 6. Awaiting transfer to [facility] for evaluation by the patient's oncologist and endocrinology. IMPRESSIONS: 1. Hypovolemic shock coupled with probable adrenal insufficiency This is now the patient's third hospitalization for similar issues. During each of the patient's prior hospitalizations, she presented with profound hypovolemia and electrolyte disturbances, in the setting of noninfectious gastrointestinal losses. It was initially felt that her GI losses may be the consequence of the immunotherapy she is receiving through the [facility] for her small cell lung cancer. However, the patient was noted to be positive during this hospital admission for C. difficile. Regardless, the patient always responds to IV volume resuscitation and stress dose steroids. She did have an abnormal cosyntropin stimulation test during her previous hospitalization and was supposed to follow-up with endocrinology, but failed to do so. At the current time, the patient's hemodynamics have responded favorably to volume expansion and stress dose steroids. At this point, given the recurrent nature of the patient's hospitalizations, I have recommended consideration for transfer to the [facility] for evaluation by the patient's oncologist and endocrinology. 2. Small cell lung cancer The patient was diagnosed with limited stage small cell lung cancer in 2014. She underwent concurrent chemoradiation wtih cisplatin/etoposide and completed prophylactic intracranial irradiation. She presented with local recurrent disease in 2017. Biopsy of LIMA on 04/17/17 was positive for small cell carcinoma. She has since progressed through 3 additional cycles of cisplatin/etoposide, to potecan and weekly paclitaxel. She began nivolumab and ipilimumab on 03/03/18 under the care of Dr. Cabral at [facility]. 3. Hypovolemic hyponatremia/hypokalemia Continue IV volume resuscitation and aggressive electrolyte repletion. 4. C. difficile colitis The patient will continued on p.o. vancomycin. 5. Severe protein calorie malnutrition/debility/bipolar disorder/ongoing tobacco dependence Complicates care, management, recovery and prognosis. Continue nicotine replacement therapy. Smoking cessation is advisable. Nutrition team is following. Physical therapy to work with patient. This note was generated with [employer] dictation software. It may contain incorrect words, spelling, and punctuation that were not noted in checking the note before signing. Code Visit Inpatient E&M: 54281 Subs Hosp L3
[2018-06-22] MEDS: oxyCODONE 5 MG Tablet PO (08:41)
[2018-06-22] MEDS: Pantoprazole Sodium 20 MG Tablet PO (10:59)
--- NOTE | 2018-06-22 16:45 | PCM.PN.HOSP ---
Subjective: Patient seen and examined. She had an uneventful night. She denies any chest pain, headache, fever chills, abdominal pain, diarrhea vomiting. She still awaiting transfer to [facility]. Review of systems otherwise negative. Labs and vitals reviewed. Potassium remains low and is being aggressively replaced. Vitals/I&O's: Vital Signs Temp Pulse Resp BP Pulse Ox 97.4 F L 85 18 95/79 100 06/22/18 14:32 06/22/18 14:32 06/22/18 14:32 06/22/18 14:32 06/22/18 14:32 Oxygen Delivery Method Room Air Weight: 119 lb 4.321 oz Body Mass Index (BMI) 17.1 Intake and Output for Last 24 Hours 06/20/18 06/21/18 06/22/18 23:59 23:59 23:59 Intake Total 1430.8 / 1430.8 4943.6 / 4943.6 3869 / 3869 Output Total 200 / 200 700 / 700 Balance 1230.8 / 1230.8 4243.6 / 4243.6 3869 / 3869 General: Alert, Oriented x3, Cooperative, No apparent distress HEENT: Atraumatic, PERRLA, EOMI, Normocephalic Oral: Moist Mucosa Neck: Supple, No JVD, Negative Carotid Bruits, Negative Hepatojugular Reflux, No Nodes, No Nuchal Rigidity Lungs: Clear to auscultation, Normal air movement, No rhonchi, No wheeze, No rales Cardiovascular: Regular rate, Regular Rhythm, Normal S1, Normal S2, No murmurs Abdomen: Bowel Sounds Present, Soft, Non Tender, Non-Distended, No Hepato-splenomegaly Extremities: No clubbing, No cyanosis, No edema, Capillary Refill Less than 3 Seconds Skin: No rashes, No breakdown Musculoskeletal: No Tenderness to Palpation of Joints or Extremities Lymphatic: No Cervical, Supraclavicular, or Inguinal Adenopathy Neurological: Cranial nerves II-XII grossly intact, Neuro grossly intact, Motor Exam 5/5 strength throughout Psych/Mental Status: Normal Affect, Appropriate, Alert and oriented to time, place, person, mood and affect Microbiology Past 72 Hours 06/21/18 04:15 Stool Enteric Bacteriology - Final 06/20/18 20:10 Stool C. difficile DNA Amplification - Final Toxigenic C. difficile DNA Laboratory Results 06/21/18 17:20: Potassium 2.4 L* 06/21/18 22:55: Sodium 143, Potassium 2.4 L*, Chloride 121 H, Carbon Dioxide 12.0 L, Anion Gap 10, BUN 13, Creatinine 0.58, Estim Creat Clear Calc 88.57, Est GFR (MDRD) Af Amer 138, Est GFR (MDRD) Non-Af 114, BUN/Creatinine Ratio 22.3 H, Glucose 105, Calcium 7.2 L 06/22/18 05:25: WBC 7.3, RBC 2.46 L, Hgb 7.4 L, Hct 21.0 L, MCV 85.4, MCH 30.1, MCHC 35.2, RDW 18.7 H, RDW Differential 56.4 H, Plt Count 198, MPV 8.5 06/22/18 05:25: Sodium 146 H, Potassium 2.3 L*, Chloride 123 H, Carbon Dioxide 12.0 L, Anion Gap 11, BUN 10, Creatinine 0.63, Estim Creat Clear Calc 87.18, Est GFR (MDRD) Af Amer 126, Est GFR (MDRD) Non-Af 105, BUN/Creatinine Ratio 15.8, Glucose 100, Calcium 7.2 L, Magnesium 1.9 Current Medications Al Hydroxide/Mg Hydroxide (Mylanta Ii) 30 ml PO Q6H PRN PRN PRN Reason: Gastric burning Albuterol Sulfate (Ventolin Aerosols) 2.5 mg INHALATION Q2H PRN PRN PRN Reason: dyspnea, wheezing Albuterol/Ipratropium (Duoneb) 3 ml INHALATION Q6HWA.RT [facility] Last Admin: 06/22/18 13:00 Dose: Not Given Calamine/Phenol (Calmoseptine Ointment) 1 applic TOPICAL TID [facility]; Protocol Last Admin: 06/22/18 14:17 Dose: 1 applicatio Cyclobenzaprine HCl (Cyclobenzaprine Hcl) 5 mg PO TID PRN PRN PRN Reason: BACK SPASMS Diazepam (Valium) 10 mg PO BID PRN PRN Reason: ANXIETY Heparin Sodium (Beef Lung) () 50 units IV UD PRN PRN Reason: HEPARIN FLUSH Heparin Sodium (Porcine) (Heparin Na) 5,000 unit SC Q12 [facility] Last Admin: 06/22/18 10:59 Dose: Not Given Hydrocortisone Sodium Succinate (Solu-Cortef) 100 mg IV Q8 [facility] Last Admin: 06/22/18 14:16 Dose: 100 mg Sodium Chloride () 1,000 mls @ 150 mls/hr IV .[id number] [facility] Last Admin: 06/22/18 14:16 Dose: 150 mls/hr Sodium Chloride () 250 mls @ 15 mls/hr IV .[id number] PRN PRN Reason: SALINE FLUSH Loperamide HCl (Imodium) 2 mg PO Q4H PRN PRN PRN Reason: Diarrhea Magnesium Hydroxide (Milk Of Magnesia) 30 ml PO DAILY PRN PRN PRN Reason: Constipation Mirtazapine (Remeron) 30 mg PO HS [facility] Last Admin: 06/21/18 21:17 Dose: 30 mg Nicotine (Nicoderm Cq (Pbkc)) 21 mg TRANSDERM. DAILY [facility] Last Admin: 06/22/18 10:59 Dose: 21 mg Nutritional Formula (Lactose Free) (Ensure Enlive) 120 ml PO 4X/DAY [facility] Last Admin: 06/22/18 14:17 Dose: Not Given Ondansetron HCl (Zofran) 4 mg IV Q8H PRN PRN PRN Reason: NAUSEA Oxycodone HCl (Oxyir) 5 mg PO Q6H PRN PRN PRN Reason: PAIN Last Admin: 06/22/18 08:41 Dose: 5 mg Pantoprazole Sodium (Protonix) 20 mg PO BID [facility] Last Admin: 06/22/18 10:59 Dose: 20 mg Potassium [facility] Last Admin: 06/22/18 08:42 Dose: 40 meq Promethazine HCl (Phenergan) 12.5 mg IV Q6H PRN PRN PRN Reason: NAUSEA/VOMITING Sodium Bicarbonate (Sodium Bicarbonate) 650 mg PO TID [facility] Last Admin: 06/22/18 14:17 Dose: 650 mg Sodium Chloride () 5 - 30 ml IV UD PRN PRN Reason: SALINE FLUSH Last Admin: 06/22/18 00:48 Dose: 10 ml Vancomycin HCl () 125 mg PO Q6 [facility] Last Admin: 06/22/18 10:59 Dose: 125 mg Medical Necessity - Tobacco Use Smoking Status: Former smoker Tobacco Use: Non-smoker Assessment/Plan All Active Problems (Last Reviewed 05/16/18 @ 20:50 by Sohan Waddell MD) Acute kidney injury (Acute) Hypokalemia (Acute) Abnormal EKG (Acute) Hyponatremia (Acute) Nausea vomiting and diarrhea (Acute) Severe dehydration (Acute) Cardiac arrest (Acute) Periodontal disease (Acute) Nausea & vomiting (Acute) Headache (Acute) Encounter for adjustment or management of vascular access device (Acute) Regional lymph node metastasis present (Acute) Lung metastasis (Acute) 1. Hypotension resolving may be due to suspected adrenal insufficiency and possibly hypovolemic shock due to GI losses remains on IVF on IV steroids awaiting transfer to [facility] as she needs endocrinology assessment, and that is where her oncologist is. 2. C diff infection still having diarrhea. On PO vancomycin isolation precautions 3. Small cell lung cancer Diagnosed in 2014. Is currently undergoing chemotherapy. Follows up with oncologist at [facility] to follow up with oncologist upon transfer 4. Severe hypokalemia K was 1.5 on admission; aggressively replaced Likely compounded by GI losses K today is 2.3. Continue aggressive replacement 5. Hyponatremia: Resolved. 6. Nonanion gap acidosis bicarb is 12, anion gap is 11. Likely due to GI loss from diarrhea should improve with resolution of diarrhea. If it persists, may benefit from bicarb 7. Normocytic, normochromic Anemia: Hb is 7.4 today. Was 11.8 on admission. may be due to hemodilution as all other indices such as white cell count and platelets have also dropped. RDW is elevated, leading ot suspicion of iron deficiency anemia Patient is asymptomatic. We will continue monitoring consider transfusion if hemoglobin falls less than 7. 8. Severe protein calorie malnutrition nutrition on board. Likely complicated by malignancy and chemotherapy 9. COPD: on breathing treatments. DVT prophylaxis: heparin Code status: Full code DIsposition: for transfer to [facility]. Code Visit Inpatient E&M: 91980 Subs Hosp L3
--- NOTE | 2018-06-22 16:49 | PN_ITS ---
Subjective: Patient seen and examined. She had an uneventful night. She denies any chest pain, headache, fever chills, abdominal pain, diarrhea vomiting. She still awaiting transfer to [facility]. Review of systems otherwise negative. Labs and vitals reviewed. Potassium remains low and is being aggressively replaced. Vitals/I&O's: Vital Signs Temp Pulse Resp BP Pulse Ox 97.4 F L 85 18 95/79 100 06/22/18 14:32 06/22/18 14:32 06/22/18 14:32 06/22/18 14:32 06/22/18 14:32 Oxygen Delivery Method Room Air Weight: 119 lb 4.321 oz Body Mass Index (BMI) 17.1 Intake and Output for Last 24 Hours 06/20/18 06/21/18 06/22/18 23:59 23:59 23:59 Intake Total 1430.8 / 1430.8 4943.6 / 4943.6 3869 / 3869 Output Total 200 / 200 700 / 700 Balance 1230.8 / 1230.8 4243.6 / 4243.6 3869 / 3869 General: Alert, Oriented x3, Cooperative, No apparent distress HEENT: Atraumatic, PERRLA, EOMI, Normocephalic Oral: Moist Mucosa Neck: Supple, No JVD, Negative Carotid Bruits, Negative Hepatojugular Reflux, No Nodes, No Nuchal Rigidity Lungs: Clear to auscultation, Normal air movement, No rhonchi, No wheeze, No rales Cardiovascular: Regular rate, Regular Rhythm, Normal S1, Normal S2, No murmurs Abdomen: Bowel Sounds Present, Soft, Non Tender, Non-Distended, No Hepato- splenomegaly Extremities: No clubbing, No cyanosis, No edema, Capillary Refill Less than 3 Seconds Skin: No rashes, No breakdown Musculoskeletal: No Tenderness to Palpation of Joints or Extremities Lymphatic: No Cervical, Supraclavicular, or Inguinal Adenopathy Neurological: Cranial nerves II-XII grossly intact, Neuro grossly intact, Motor Exam 5/5 strength throughout Psych/Mental Status: Normal Affect, Appropriate, Alert and oriented to time, place, person, mood and affect Microbiology Past 72 Hours 06/21/18 04:15 Stool Enteric Bacteriology - Final 06/20/18 20:10 Stool C. difficile DNA Amplification - Final Toxigenic C. difficile DNA Laboratory Results 06/21/18 17:20: Potassium 2.4 L* 06/21/18 22:55: Sodium 143, Potassium 2.4 L*, Chloride 121 H, Carbon Dioxide 12.0 L, Anion Gap 10, BUN 13, Creatinine 0.58, Estim Creat Clear Calc 88.57, Est GFR (MDRD) Af Amer 138, Est GFR (MDRD) Non-Af 114, BUN/Creatinine Ratio 22.3 H, Glucose 105, Calcium 7.2 L 06/22/18 05:25: WBC 7.3, RBC 2.46 L, Hgb 7.4 L, Hct 21.0 L, MCV 85.4, MCH 30.1, MCHC 35.2, RDW 18.7 H, RDW Differential 56.4 H, Plt Count 198, MPV 8.5 06/22/18 05:25: Sodium 146 H, Potassium 2.3 L*, Chloride 123 H, Carbon Dioxide 12.0 L, Anion Gap 11, BUN 10, Creatinine 0.63, Estim Creat Clear Calc 87.18, Est GFR (MDRD) Af Amer 126, Est GFR (MDRD) Non-Af 105, BUN/Creatinine Ratio 15.8, Glucose 100, Calcium 7.2 L, Magnesium 1.9 Current Medications Al Hydroxide/Mg Hydroxide (Mylanta Ii) 30 ml PO Q6H PRN PRN PRN Reason: Gastric burning Albuterol Sulfate (Ventolin Aerosols) 2.5 mg INHALATION Q2H PRN PRN PRN Reason: dyspnea, wheezing Albuterol/Ipratropium (Duoneb) 3 ml INHALATION Q6HWA.RT [facility] Last Admin: 06/22/18 13:00 Dose: Not Given Calamine/Phenol (Calmoseptine Ointment) 1 applic TOPICAL TID [facility]; Protocol Last Admin: 06/22/18 14:17 Dose: 1 applicatio Cyclobenzaprine HCl (Cyclobenzaprine Hcl) 5 mg PO TID PRN PRN PRN Reason: BACK SPASMS Diazepam (Valium) 10 mg PO BID PRN PRN Reason: ANXIETY Heparin Sodium (Beef Lung) () 50 units IV UD PRN PRN Reason: HEPARIN FLUSH Heparin Sodium (Porcine) (Heparin Na) 5,000 unit SC Q12 [facility] Last Admin: 06/22/18 10:59 Dose: Not Given Hydrocortisone Sodium Succinate (Solu-Cortef) 100 mg IV Q8 [facility] Last Admin: 06/22/18 14:16 Dose: 100 mg Sodium Chloride () 1,000 mls @ 150 mls/hr IV .Q6H40M [facility] Last Admin: 06/22/18 14:16 Dose: 150 mls/hr Sodium Chloride () 250 mls @ 15 mls/hr IV .[id number] PRN PRN Reason: SALINE FLUSH Loperamide HCl (Imodium) 2 mg PO Q4H PRN PRN PRN Reason: Diarrhea Magnesium Hydroxide (Milk Of Magnesia) 30 ml PO DAILY PRN PRN PRN Reason: Constipation Mirtazapine (Remeron) 30 mg PO HS [facility] Last Admin: 06/21/18 21:17 Dose: 30 mg Nicotine (Nicoderm Cq (Pbkc)) 21 mg TRANSDERM. DAILY [facility] Last Admin: 06/22/18 10:59 Dose: 21 mg Nutritional Formula (Lactose Free) (Ensure Enlive) 120 ml PO 4X/DAY [facility] Last Admin: 06/22/18 14:17 Dose: Not Given Ondansetron HCl (Zofran) 4 mg IV Q8H PRN PRN PRN Reason: NAUSEA Oxycodone HCl (Oxyir) 5 mg PO Q6H PRN PRN PRN Reason: PAIN Last Admin: 06/22/18 08:41 Dose: 5 mg Pantoprazole Sodium (Protonix) 20 mg PO BID [facility] Last Admin: 06/22/18 10:59 Dose: 20 mg Potassium [facility]Dur[facility] Last Admin: 06/22/18 08:42 Dose: 40 meq Promethazine HCl (Phenergan) 12.5 mg IV Q6H PRN PRN PRN Reason: NAUSEA/VOMITING Sodium Bicarbonate (Sodium Bicarbonate) 650 mg PO TID [facility] Last Admin: 06/22/18 14:17 Dose: 650 mg Sodium Chloride () 5 - 30 ml IV UD PRN PRN Reason: SALINE FLUSH Last Admin: 06/22/18 00:48 Dose: 10 ml Vancomycin HCl () 125 mg PO Q6 [facility] Last Admin: 06/22/18 10:59 Dose: 125 mg Medical Necessity - Tobacco Use Smoking Status: Former smoker Tobacco Use: Non-smoker Assessment/Plan All Active Problems (Last Reviewed 05/16/18 @ 20:50 by Sohan Waddell MD) Acute kidney injury (Acute) Hypokalemia (Acute) Abnormal EKG (Acute) Hyponatremia (Acute) Nausea vomiting and diarrhea (Acute) Severe dehydration (Acute) Cardiac arrest (Acute) Periodontal disease (Acute) Nausea & vomiting (Acute) Headache (Acute) Encounter for adjustment or management of vascular access device (Acute) Regional lymph node metastasis present (Acute) Lung metastasis (Acute) 1. Hypotension * resolving * may be due to suspected adrenal insufficiency and possibly hypovolemic shock due to GI losses * remains on IVF * on IV steroids * awaiting transfer to [facility] as she needs endocrinology assessment, and that is where her oncologist is. * 2. C diff infection * still having diarrhea. On PO vancomycin * isolation precautions * 3. Small cell lung cancer * Diagnosed in 2014. Is currently undergoing chemotherapy. Follows up with oncologist at [facility] * to follow up with oncologist upon transfer * 4. Severe hypokalemia * K was 1.5 on admission; aggressively replaced * Likely compounded by GI losses * K today is 2.3. Continue aggressive replacement * * 5. Hyponatremia: Resolved. 6. Nonanion gap acidosis * bicarb is 12, anion gap is 11. Likely due to GI loss from diarrhea * should improve with resolution of diarrhea. If it persists, may benefit from bicarb * 7. Normocytic, normochromic Anemia: * Hb is 7.4 today. * Was 11.8 on admission. * may be due to hemodilution as all other indices such as white cell count and platelets have also dropped. * RDW is elevated, leading ot suspicion of iron deficiency anemia * Patient is asymptomatic. We will continue monitoring consider transfusion if hemoglobin falls less than 7. 8. Severe protein calorie malnutrition * nutrition on board. Likely complicated by malignancy and chemotherapy 9. COPD: on breathing treatments. DVT prophylaxis: heparin Code status: Full code DIsposition: for transfer to [facility]. Code Visit Inpatient E&M: 86268 Subs Hosp L3
--- NOTE | 2018-06-22 17:30 | NURSING ---
report given to Angelic RN, [facility] RN
--- NOTE | 2018-06-22 17:43 | PCM.DC ---
You will use the following diet at home:: Cardiac Your food should be the consistency of: Regular Discharge Activity: Return to Normal Activity Weight Bearing Status: Weight bearing as tolerated Allergies/Adverse Reactions: Allergies No Known Allergies Allergy (Verified 05/26/18 12:01) Medications to take at Discharge Cyclobenzaprine HCl 5 mg PO TID PRN 05/16/18 Ondansetron [Zofran] 8 mg PO Q8H PRN PRN 05/16/18 Diazepam 10 mg PO BID PRN #10 tab 06/02/18 Heparin Pf Lock 10 units/ml 50 units IV UD PRN syringe 06/02/18 Loperamide [Imodium] 2 mg PO Q4H PRN PRN capsule 06/02/18 Oxycodone [Oxyir] 5 mg PO Q6H PRN PRN #20 tab 06/02/18 Mirtazapine [Remeron] 15 mg PO HS 06/20/18 Nicotine Polacrilex [Nicotine Gum] 2 mg BC Q1H PRN 06/20/18 Oxybutynin [Ditropan] 5 mg PO TID 06/20/18 Prochlorperazine Maleate [Compazine] 10 mg PO Q6H PRN PRN 06/20/18 Sennosides/Docusate Sodium [Docusate Sodium-Senna Tablet] 1 each PO DAILY 06/20/18 Tiotropium Br/Olodaterol HCl [Stiolto Respimat Inhal [place]] 4 gm IH BID 06/20/18 Primary Care Physician: Fausto Iverson DO [Primary Care Provider] - Please follow up with your Primary Care Physician in: 1-2 weeks Test Results: Test results from this visit will be discussed in further detail at your follow-up appointment, if applicable. Proposed Discharge Date: 06/22/18
--- NOTE | 2018-06-22 17:45 | PCM.DC.SUM ---
Discharge Date and Diagnosis Date of Admission: 06/20/18 Date of Discharge: 06/22/18 - Primary Discharge Diagnosis hypokalemia \hypotension; possible adrenal insufficiency - Secondary Discharge Diagnosis Chronic Problems (Last Reviewed 05/16/18 @ 20:50 by Sohan Waddell MD) Bipolar affect, depressed (Chronic) Pulmonary embolism (Chronic) Tobacco abuse (Chronic) Muscle spasm (Chronic) alf current use of anticoagulant (Chronic) Acid reflux disease (Chronic) Rotator cuff syndrome (Chronic) Adrenal nodule (Chronic) Small cell lung cancer (Chronic) COPD (chronic obstructive pulmonary disease) (Chronic) Poor compliance with medication (Chronic) Left atrial thrombus (Chronic) Tobacco dependence (Chronic) PTSD (post-traumatic stress disorder) (Chronic) 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 [place] Spasm of back muscles (Chronic) Manic depression (Chronic) Dyspnea (Chronic) 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 No definite mass or acute chest disease. Electronically Signed: Farooq Fountain MD at 16:56 EST , Service support , physician allergist immunologist- Dr Sunday Cano Operations: None Procedures: None Summary of Care Provided: The patient is a 53 year old F with a PMH with an extensive past medical history as listed below who was admitted through the ED with a complaint of severely worsening fatigue and weakness as well as diarrhea. She has a history of small cell lung cancer and COPD and had been following up with Dr. Mckeon and also with oncologist and [facility] cancer center in [place]. She has been receiving immunotherapy. She was recently admitted for similar presentation of severe dehydration and diarrhea as well as hypokalemia and suspected adrenal insufficiency at [facility] and recently at [facility]. She had been scheduled to follow-up with an air quality specialist but was unable to. During this admission she was noted to be hypotensive with a potassium of 1.5. She also tested positive for C. difficile. She was admitted and managed for suspected adrenal insufficiency, hypotension, hypokalemia and C. difficile. Potassium was aggressively replaced and she was resuscitated with IV fluid administration. Potassium trended up to about 2.4. Patient continued to have diarrhea. He was also noted to have a non-anion gap acidosis on account of GI losses most likely. Decision was made per discussion with physician allergist immunologist to transfer patient to [facility] as we do not have endocrinology service here and she also receives her oncology services at the [facility]. Patient remained stable and she was transferred to [facility] on 06/22/2018. Patient seen and examined prior to discharge. Still complained of weakness. She denied any fever chills, any cough or chest pain, any nausea abdominal pain. She is still complaining of diarrhea. Review of systems otherwise negative. Labs and vitals reviewed. Home medications reviewed and reconciled. On examination: Vital Signs Height 5 ft 6 in Weight: 119 lb 4.321 oz Weight in Pounds 119.3 lbs Pulse Ox 100 Temperature 97.4 F Pulse Rate 83 Respiratory Rate 18 Blood Pressure [BP] 112/78 Blood Pressure 95/79 Blood Pressure Position [BP] Sitting Blood Pressure Position Supine General: Alert, Oriented x3, Cooperative, No apparent distress HEENT: Atraumatic, PERRLA, EOMI, Normocephalic Oral: Moist Mucosa Neck: Supple, No JVD, Negative Carotid Bruits, Negative Hepatojugular Reflux, No Nodes, No Nuchal Rigidity Lungs: Clear to auscultation, Normal air movement, No rhonchi, No wheeze, No rales Cardiovascular: Regular rate, Regular Rhythm, Normal S1, Normal S2, No murmurs Abdomen: Bowel Sounds Present, Soft, Non Tender, Non-Distended, No Hepato-splenomegaly Extremities: No clubbing, No cyanosis, No edema, Capillary Refill Less than 3 Seconds Skin: No rashes, No breakdown Musculoskeletal: No Tenderness to Palpation of Joints or Extremities Lymphatic: No Cervical, Supraclavicular, or Inguinal Adenopathy Neurological: Cranial nerves II-XII grossly intact, Neuro grossly intact, Motor Exam 5/5 strength throughout Psych/Mental Status: Normal Affect, Appropriate, Alert and oriented to time, place, person, mood and affect [] Plan as stated above. - Physical Exam Vital Signs Temp Pulse Resp BP Pulse Ox 97.4 F L 83 18 95/79 100 06/22/18 14:32 06/22/18 15:00 06/22/18 14:32 06/22/18 14:32 06/22/18 14:32 Oxygen Delivery Method Room Air Weight: 119 lb 4.321 oz Body Mass Index (BMI) 17.1 Intake and Output for Last 24 Hours 06/20/18 06/21/18 06/22/18 23:59 23:59 23:59 Intake Total 1430.8 / 1430.8 4943.6 / 4943.6 3869 / 3869 Output Total 200 / 200 700 / 700 Balance 1230.8 / 1230.8 4243.6 / 4243.6 3869 / 3869 Microbiology Past 72 Hours 06/21/18 04:15 Enteric Bacteriology - Final Stool 06/20/18 20:10 C. difficile DNA Amplification - Final Stool Toxigenic C. difficile DNA Laboratory Tests Past 24 Hrs 06/21/18 06/21/18 06/22/18 17:20 22:55 05:25 WBC 7.3 RBC 2.46 L Hgb 7.4 L Hct 21.0 L MCV 85.4 MCH 30.1 MCHC 35.2 RDW 18.7 H RDW Differential 56.4 H Plt Count 198 MPV 8.5 Sodium 143 Potassium 2.4 L* 2.4 L* Chloride 121 H Carbon Dioxide 12.0 L Anion Gap 10 BUN 13 Creatinine 0.58 Estim Creat Clear Calc 88.57 Est GFR (MDRD) Af Amer 138 Est GFR (MDRD) Non-Af 114 BUN/Creatinine Ratio 22.3 H Glucose 105 Calcium 7.2 L Magnesium 06/22/18 05:25 WBC RBC Hgb Hct MCV MCH MCHC RDW RDW Differential Plt Count MPV Sodium 146 H Potassium 2.3 L* Chloride 123 H Carbon Dioxide 12.0 L Anion Gap 11 BUN 10 Creatinine 0.63 Estim Creat Clear Calc 87.18 Est GFR (MDRD) Af Amer 126 Est GFR (MDRD) Non-Af 105 BUN/Creatinine Ratio 15.8 Glucose 100 Calcium 7.2 L Magnesium 1.9 Discharge Diet: Low fat/ Low Cholesterol Discharge Activity: Return to Normal Activity Weight Bearing Status: Weight bearing as tolerated Home Medications: Medications to take at Discharge Cyclobenzaprine HCl 5 mg PO TID PRN 05/16/18 Ondansetron [Zofran] 8 mg PO Q8H PRN PRN 05/16/18 Diazepam 10 mg PO BID PRN #10 tab 10/19/18 Heparin Pf Lock 10 units/ml 50 units IV UD PRN syringe 06/02/18 Loperamide [Imodium] 2 mg PO Q4H PRN PRN capsule 06/02/18 Oxycodone [Oxyir] 5 mg PO Q6H PRN PRN #20 tab 06/02/18 Mirtazapine [Remeron] 15 mg PO HS 06/20/18 Nicotine Polacrilex [Nicotine Gum] 2 mg BC Q1H PRN 06/20/18 Oxybutynin [Ditropan] 5 mg PO TID 06/20/18 Prochlorperazine Maleate [Compazine] 10 mg PO Q6H PRN PRN 06/20/18 Sennosides/Docusate Sodium [Docusate Sodium-Senna Tablet] 1 each PO DAILY 06/20/18 Tiotropium Br/Olodaterol HCl [Stiolto Respimat Inhal [place]] 4 gm IH BID 06/20/18 Primary Care Physician: Fausto Iverson DO [Primary Care Provider] - Please follow up with your Primary Care Physician in: 1-2 weeks Disposition: Acute care [facility] Minutes spent on discharge:: 40 Patient Condition:: Fair Medical Necessity - Tobacco Use Smoking Status: Former smoker Tobacco Use: Non-smoker Meaningful Use Info Meaningful Use Diagnoses (Choose all that apply): None applicable Code Visit Inpatient E&M: 45825 Disch Hosp
--- NOTE | 2018-06-22 17:51 | DS.PCM_ITS ---
Discharge Date and Diagnosis Date of Admission: 06/20/18 Date of Discharge: 06/22/18 - Primary Discharge Diagnosis hypokalemia \hypotension; possible adrenal insufficiency - Secondary Discharge Diagnosis Chronic Problems (Last Reviewed 05/16/18 @ 20:50 by Sohan Waddell MD) Bipolar affect, depressed (Chronic) Pulmonary embolism (Chronic) Tobacco abuse (Chronic) Muscle spasm (Chronic) jail current use of anticoagulant (Chronic) Acid reflux disease (Chronic) Rotator cuff syndrome (Chronic) Adrenal nodule (Chronic) Small cell lung cancer (Chronic) COPD (chronic obstructive pulmonary disease) (Chronic) Poor compliance with medication (Chronic) Left atrial thrombus (Chronic) Tobacco dependence (Chronic) PTSD (post-traumatic stress disorder) (Chronic) 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 [place] Spasm of back muscles (Chronic) Manic depression (Chronic) Dyspnea (Chronic) 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 No definite mass or acute chest disease. Electronically Signed: Farooq Fountain MD at 16:56 EST , Service support , side gluer- Dr Sunday Cano Operations: None Procedures: None Summary of Care Provided: The patient is a 53 year old F with a PMH with an extensive past medical history as listed below who was admitted through the ED with a complaint of severely worsening fatigue and weakness as well as diarrhea. She has a history of small cell lung cancer and COPD and had been following up with Dr. Mckeon and also with oncologist and [facility] cancer center in [place]. She has been receiving immunotherapy. She was recently admitted for similar presentation of severe dehydration and diarrhea as well as hypokalemia and suspected adrenal insufficiency at [facility] and recently at [facility]. She had been scheduled to follow-up with an laser set up operator but was unable to. During this admission she was noted to be hypotensive with a potassium of 1.5. She also tested positive for C. difficile. She was admitted and managed for suspected adrenal insufficiency, hypotension, hypokalemia and C. difficile. Potassium was aggressively replaced and she was resuscitated with IV fluid administration. Potassium trended up to about 2.4. Patient continued to have diarrhea. He was also noted to have a non-anion gap acidosis on account of GI losses most likely. Decision was made per discussion with side gluer to transfer patient to [facility] as we do not have endocrinology se rvice here and she also receives her oncology services at the [facility]. Patient remained stable and she was transferred to [facility] on 06/22/2018. Patient seen and examined prior to discharge. Still complained of weakness. She denied any fever chills, any cough or chest pain, any nausea abdominal pain. She is still complaining of diarrhea. Review of systems otherwise negative. Labs and vitals reviewed. Home medications reviewed and reconciled. On examination: Vital Signs Height 5 ft 6 in Weight: 119 lb 4.321 oz Weight in Pounds 119.3 lbs Pulse Ox 100 Temperature 97.4 F Pulse Rate 83 Respiratory Rate 18 Blood Pressure [BP] 112/78 Blood Pressure 95/79 Blood Pressure Position [BP] Sitting Blood Pressure Position Supine General: Alert, Oriented x3, Cooperative, No apparent distress HEENT: Atraumatic, PERRLA, EOMI, Normocephalic Oral: Moist Mucosa Neck: Supple, No JVD, Negative Carotid Bruits, Negative Hepatojugular Reflux, No Nodes, No Nuchal Rigidity Lungs: Clear to auscultation, Normal air movement, No rhonchi, No wheeze, No rales Cardiovascular: Regular rate, Regular Rhythm, Normal S1, Normal S2, No murmurs Abdomen: Bowel Sounds Present, Soft, Non Tender, Non-Distended, No Hepato- splenomegaly Extremities: No clubbing, No cyanosis, No edema, Capillary Refill Less than 3 Seconds Skin: No rashes, No breakdown Musculoskeletal: No Tenderness to Palpation of Joints or Extremities Lymphatic: No Cervical, Supraclavicular, or Inguinal Adenopathy Neurological: Cranial nerves II-XII grossly intact, Neuro grossly intact, Motor Exam 5/5 strength throughout Psych/Mental Status: Normal Affect, Appropriate, Alert and oriented to time, place, person, mood and affect [] Plan as stated above. - Physical Exam Vital Signs Temp Pulse Resp BP Pulse Ox 97.4 F L 83 18 95/79 100 06/22/18 14:32 06/22/18 15:00 06/22/18 14:32 06/22/18 14:32 06/22/18 14:32 Oxygen Delivery Method Room Air Weight: 119 lb 4.321 oz Body Mass Index (BMI) 17.1 Intake and Output for Last 24 Hours 06/20/18 06/21/18 06/22/18 23:59 23:59 23:59 Intake Total 1430.8 / 1430.8 4943.6 / 4943.6 3869 / 3869 Output Total 200 / 200 700 / 700 Balance 1230.8 / 1230.8 4243.6 / 4243.6 3869 / 3869 Microbiology Past 72 Hours 06/21/18 04:15 Enteric Bacteriology - Final Stool 06/20/18 20:10 C. difficile DNA Amplification - Final Stool Toxigenic C. difficile DNA Laboratory Tests Past 24 Hrs 06/21/18 06/21/18 06/22/18 17:20 22:55 05:25 WBC 7.3 RBC 2.46 L Hgb 7.4 L Hct 21.0 L MCV 85.4 MCH 30.1 MCHC 35.2 RDW 18.7 H RDW Differential 56.4 H Plt Count 198 MPV 8.5 Sodium 143 Potassium 2.4 L* 2.4 L* Chloride 121 H Carbon Dioxide 12.0 L Anion Gap 10 BUN 13 Creatinine 0.58 Estim Creat Clear Calc 88.57 Est GFR (MDRD) Af Amer 138 Est GFR (MDRD) Non-Af 114 BUN/Creatinine Ratio 22.3 H Glucose 105 Calcium 7.2 L Magnesium 06/22/18 05:25 WBC RBC Hgb Hct MCV MCH MCHC RDW RDW Differential Plt Count MPV Sodium 146 H Potassium 2.3 L* Chloride 123 H Carbon Dioxide 12.0 L Anion Gap 11 BUN 10 Creatinine 0.63 Estim Creat Clear Calc 87.18 Est GFR (MDRD) Af Amer 126 Est GFR (MDRD) Non-Af 105 BUN/Creatinine Ratio 15.8 Glucose 100 Calcium 7.2 L Magnesium 1.9 Discharge Diet: Low fat/ Low Cholesterol Discharge Activity: Return to Normal Activity Weight Bearing Status: Weight bearing as tolerated Home Medications: Medications to take at Discharge Cyclobenzaprine HCl 5 mg PO TID PRN 05/16/18 Ondansetron [Zofran] 8 mg PO Q8H PRN PRN 05/16/18 Diazepam 10 mg PO BID PRN #10 tab 06/02/18 Heparin Pf Lock 10 units/ml 50 units IV UD PRN syringe 06/02/18 Loperamide [Imodium] 2 mg PO Q4H PRN PRN capsule 06/02/18 Oxycodone [Oxyir] 5 mg PO Q6H PRN PRN #20 tab 06/02/18 Mirtazapine [Remeron] 15 mg PO HS 06/20/18 Nicotine Polacrilex [Nicotine Gum] 2 mg BC Q1H PRN 06/20/18 Oxybutynin [Ditropan] 5 mg PO TID 06/20/18 Prochlorperazine Maleate [Compazine] 10 mg PO Q6H PRN PRN 06/20/18 Sennosides/Docusate Sodium [Docusate Sodium-Senna Tablet] 1 each PO DAILY 06/20/18 Tiotropium Br/Olodaterol HCl [Stiolto Respimat Inhal [place]] 4 gm IH BID 06/20/18 Primary Care Physician: Fausto Iverson DO [Primary Care Provider] - Please follow up with your Primary Care Physician in: 1-2 weeks Disposition: Acute care Hospital - [facility] Minutes spent on discharge:: 40 Patient Condition:: Fair Medical Necessity - Tobacco Use Smoking Status: Former smoker Tobacco Use: Non-smoker Meaningful Use Info Meaningful Use Diagnoses (Choose all that apply): None applicable Code Visit Inpatient E&M: 94001 Disch Hosp
[2018-06-22] MEDS: diazePAM 5 MG Tablet 10 MG PO (20:57)
--- NOTE | 2018-06-22 21:44 | NURSING ---
[facility] ambulance currently transferring pt out of [facility] to [facility]. [facility] informed of pt's JUANY time from [facility].
== END 2018-06-22 21:45 | disposition short-term general hospital (02) | DRG 248 ==
LOC: ED 17:08 → ICU 19:04
PROVIDERS: Internal Medicine Critical Care Medicine; Admitting Provider Family Medicine; Emergency Provider Emergency Medicine; Family Provider Family Medicine; PCP Family Medicine; Referring Provider Family Medicine; Visit Provider Student in an Organized Health Care Education/Training Program
DX: A04.72 Enterocolitis due to Clostridium difficile, not specified as recurrent (principal); E86.0 Dehydration; R57.1 Hypovolemic shock; E87.6 Hypokalemia; E27.40 Unspecified adrenocortical insufficiency; C34.90 Malignant neoplasm of unspecified part of unspecified bronchus or lung; E87.2 Acidosis; Z87.891 Personal history of nicotine dependence; E43 Unspecified severe protein-calorie malnutrition; Z68.1 Body mass index [BMI] 19.9 or less, adult; F31.9 Bipolar disorder, unspecified; E87.1 Hypo-osmolality and hyponatremia; J44.9 Chronic obstructive pulmonary disease, unspecified; D64.9 Anemia, unspecified
CPT/HCPCS: 36591; 71046; 80048; 80053; 81001; 83605; 83735; 84100; 84132; 84484; 85027; 87040; 87177; 87209; 87493; 87506; 93005; 97162; 97165; 97802; 99285; J7030; J7120; A4216

== ENCOUNTER 2018-08-20 18:27 | Inpatient (IN) | payer MEDICAID, SELFPAY ==
[2018-08-20 18:28] VITALS: PULSE 122; RESP 26; TEMP 36.4; O2SAT 100; BMI 27.6
--- NOTE | 2018-08-20 19:05 | RAD_ITS ---
STUDY: X-RAY CHEST REASON FOR EXAM: Female, 53 years old. Worsening weakness TECHNIQUE: Single AP portable view of the chest. COMPARISON: 06/20/2018 FINDINGS: There is hyperinflation of the lungs consistent with chronic obstructive lung disease (COPD). Right chest wall Mediport is noted. There is no demonstrated pleural abnormality. Normal size heart. Normal mediastinum and dyan. Normal visualized pulmonary arteries. Normal visualized aortic arch and descending thoracic aorta. Normal visualized thoracic spine. Normal visualized ribs, clavicles, and shoulders. There is no demonstrated abnormality of the visualized soft tissue structures of the upper abdomen. RAD/Chest 1 View (Portable) IMPRESSION: No acute cardiopulmonary disease Electronically Signed: David Sarmiento DO at 20:05 EST Tel , Service support ,
--- NOTE | 2018-08-20 19:05 | EKG12_ITS ---
Test Reason : GEN ILLNESS Blood Pressure : / mmHG Vent. Rate : 118 BPM Atrial Rate : 118 BPM P-R Int : 152 ms QRS Dur : 092 ms QT Int : 344 ms P-R-T Axes : 067 078 064 degrees QTc Int : 482 ms Sinus tachycardia Possible Left atrial enlargement Borderline ECG Confirmed by JUAN MANUEL SUAOZ, SHERIN ([id number]), publishing editor MIREYA WEISS ([id number]) on 08/22/2018 9:21:49 AM Referred By: JOVANA Confirmed By:SHERIN ZAMBRANO MD
[2018-08-20 19:49] LABS: Absolute Lymphocyte Count 1.23 X10^3/ul (0.83-4.51); Absolute Neutrophil Count 4.5 X10^3/uL (2.0-7.7); Basophil# 0.03 X10^3/uL; Basophil% 0.5 % (0-1); Differential Indicated SCAN CRITERIA MET; Eosinophil# 0.05 X10^3/uL; Eosinophils% 0.8 % (0-5); Hematocrit 33.2 % (37-47); Hemoglobin 11.4 g/dl (12.0-15.0); Lymphocyte # 1.23 X10^3/ul (4.0); Lymphocyte % 18.8 % (19-41); Mean Corp Hgb Conc 34.3 g/gl (32-36); Mean Corpuscular Hgb 30.5 pg (27.0-32.0); Mean Corpuscular Volume 88.8 fL (81-99); Mean Platelet Vol. 9.4 fl (6.2-12.0); Monocyte# 0.73 X10^3/uL; Monocyte% 11.1 % (0-10); Neutrophil # 4.48 X10^3/uL (2.7-7.7); Neutrophil % 68.2 % (47-70); POSITIVE COUNT NO; POSITIVE DIFFERENTIAL NO; POSITIVE MORPHOLOGY YES; Platelet Count 231 K/mm3 (150-450); RBC Distribution Width CV 14.8 % (11.6-14.6); RBC Distribution Width SD 47.7 fl (35.1-43.9); Red Blood Count 3.74 M/mm3 (4.2-5.4); White Blood Count 6.6 K/mm3 (4.4-11.0)
--- NOTE | 2018-08-20 20:10 | ED.RN ---
lab called with critical lab results. potassium level 2.2. Dr. Arshad made aware. no new orders at this time
[2018-08-20 20:12] LABS: AST(SGOT) 13 U/L (15-37); Alanine Aminotransfer ALT/SGPT 15 U/L (13-56); Albumin, Serum 2.9 g/dL (3.2-5.0); Alkaline Phosphatase 89 U/L (45-117); Anion Gap 12 (5-15); BUN 11 mg/dL (7-18); BUN/Creat Ratio 16.7 RATIO (10-20); Bilirubin, Direct 0.14 mg/dL (0.00-0.30); Calcium,Total 9.5 mg/dL (8.5-10.1); Chloride 103 mmol/L (98-107); Creatinine, Serum 0.66 mg/dL (0.55-1.02); EST Glomerular Filtration Rate 100 mL/min (>60); Est Glom Filt Rate - Afr Amer 121 mL/min (>60); Estimated Creatinine Clearance 87.68 ml/min; Globulin 3.6 g/dL (2.2-4.2); Glucose 101 mg/dL (74-106); Potassium 2.2 mmol/L (3.5-5.1); Protein, Total 6.5 g/dL (6.4-8.2); Sodium Level 134 mmol/L (136-145)
[2018-08-20 20:19] LABS: CPK Total, Creatine Kinase 24 U/L (26-192)
[2018-08-20 20:35] LABS: Atypical Lymphocyte RARE %; Differential Comment SCANNED
[2018-08-20 20:36] LABS: Tear Drop Cell RARE
[2018-08-20 20:37] LABS: Platelet Estimate ADEQUATE (ADEQ)
[2018-08-20] MEDS: 0.9% Normal Saline 1,000 ML 150 ML IV (20:38)
[2018-08-20] MEDS: Potassium Chloride 10mEq/100mL 10 MEQ/100 ML IV.SOLN. 100 MEQ IV BOLUS ×4 (20:38→22:58)
--- NOTE | 2018-08-20 20:43 | ED.VISSUMM ---
- ER Visit Summary Date of Service: 08/20/18 Chief Complaint: Weakness History of Present Illness: The patient is a 53 F who reports poor appetite and she has not eaten for the past 2 days. She states her legs became even more week when she was not eating and now she is unable to ambulate. She usually uses a walker. Past history significant for COPD, reflux disease, bipolar disorder, PE, small cell lung cancer, cardiac arrest. She is a smoker. She lives alone. Physical Examination: Vital signs significant for blood pressure of 91/66, temperature 97.6, heart rate 122, respiratory rate 26, pulse ox 100% on room air. Patient is a cachectic appearing female who appears older than her stated age. Head neck examination is grossly unremarkable. She has only mildly dry mucous membranes. Heart is tachycardic and regular. Lungs sounds are clear. Abdomen is soft and nontender. Lower external examination reveals no significant edema. She has generalized weakness throughout, but no focal deficits are noted. Test Results: EKG is sinus tach at 118 with no sign of acute ischemia. Portable chest x-ray shows no acute disease. CBC was normal white count with hemoglobin 11.4. Chemistry studies significant for potassium of 2.2. Renal function is unremarkable. Bicarb is 19. Emergency Department Course and Treatment: Patient is receiving IV fluids and IV potassium has been ordered. Patient has been updated on the findings and plan for admission. Hospitalist is on page. Treatment Plan: [] Disposition: Admit Impression: 1. Hypokalemia 2. Weakness secondary to #1 This note was generated with [employer] dictation software. It may contain incorrect words, spelling, and punctuation that were not noted in review of the chart prior to signing ED Disposition - Plan for ED Patient: Chief Complaint: General Illness Referrals: Fausto Iverson DO [Primary Care Provider] -
[2018-08-20 20:51] VITALS: BP 81/62; PULSE 117; RESP 14; RESP 18; O2SAT 97; O2SAT 98
--- NOTE | 2018-08-20 21:12 | HP.PCM_ITS ---
Problem List (1) Generalized weakness Status: Acute (2) Hypokalemia Status: Acute (3) Hypotension Status: Acute (4) Abnormal EKG Status: Chronic (5) Hyponatremia Status: Acute (6) Severe dehydration Status: Acute (7) Tobacco abuse Status: Chronic (8) Periodontal disease Status: Chronic (9) Lung metastasis Status: Chronic Qualifiers: Laterality: unspecified laterality Qualified Code(s): C78.00 - Secondary malignant neoplasm of unspecified lung History of Present Illness Date of Admission: 08/20/18 Chief Complaint: Generalized weakness The patient is a 53 year old F with a significant history of small cell lung cancer and on chemotherapy with next chemotherapy scheduled for September 16, 2018; anxiety disorder; COPD; and tobacco abuse who presented because of 3-day history of progressively generalized weakness with her legs giving up. Associated with her symptoms is lethargy; fatigue; and shortness of breath with mild exertion. Further, her last bowel movement was about a week ago. Patient is less talkative and slow to talk and much of the history was obtained from her daughter. A home health nurse sees patient weekly. She reported that the home health nurse will end her visits in the same week of admission. At emergency department patient was found to have systolic blood pressures blood pressures in the low 80s; and her potassium was severely low at 2.2. Patient was admitted at our hospital on 06/20/18 and transferred to [facility] on 06/22/18 for pretty much the same symptoms. At that time she had diarrhea but this time around she has no diarrhea but rather constipation. She was transferred so that she could follow-up with endocrinology. 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) Acid reflux disease (Chronic) Rotator cuff syndrome (Chronic) Adrenal nodule (Chronic) Small cell lung cancer (Chronic) Lung metastasis (Chronic) COPD (chronic obstructive pulmonary disease) (Chronic) Poor compliance with medication (Chronic) Left atrial thrombus (Chronic) Tobacco dependence (Chronic) PTSD (post-traumatic stress disorder) (Chronic) 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 LA Spasm of back muscles (Chronic) Manic depression (Chronic) Dyspnea (Chronic) 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) Chest pain (Chronic) Medical History: Medical History (Last Reviewed 08/20/18 @ 21:30 by Sohan Waddell MD) Pulmonary embolism (Chronic) I26.99 Tobacco abuse (Chronic) Z72.0 Muscle spasm (Chronic) M62.838 Periodontal disease (Chronic) K05.6 detention current use of anticoagulant (Chronic) Z79.01 Nausea & vomiting (Resolved) R11.2 Acid reflux disease (Chronic) K21.9 Headache (Inactive) R51 Rotator cuff syndrome (Chronic) M75.100 Adrenal nodule (Chronic) E27.9 Encounter for adjustment or management of vascular access device (Inactive) Z45.2 Small cell lung cancer (Chronic) C34.90 Regional lymph node metastasis present (Acute) C77.9 Lung metastasis (Chronic) C78.00 COPD (chronic obstructive pulmonary disease) (Chronic) J44.9 Poor compliance with medication (Chronic) Z91.14 Left atrial thrombus (Chronic) [id number] Tobacco dependence (Chronic) F17.200 PTSD (post-traumatic stress disorder) (Chronic) F43.10 Thrombus of pulmonary vein (Chronic) I26.99 R pulmonary vein as it enters the LA Spasm of back muscles (Chronic) M62.830 Manic depression (Chronic) F31.9 Dyspnea (Chronic) R06.00 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) I82.210 Chest pain (Chronic) R07.9 Allergies No Known Allergies Allergy (Verified 05/26/18 12:01) Home Medications: Ambulatory Orders Medication Instructions Recorded Cyclobenzaprine HCl 5 mg PO TID PRN 05/16/18 Ondansetron [Zofran] 8 mg PO Q8H PRN PRN 05/16/18 Diazepam 10 mg PO BID PRN #10 tab 06/02/18 Oxycodone [Oxyir] 5 mg PO Q6H PRN PRN #20 tab 06/02/18 Mirtazapine [Remeron] 15 mg PO HS 06/20/18 Nicotine Polacrilex [Nicotine Gum] 2 mg BC Q1H PRN 06/20/18 Oxybutynin [Ditropan] 5 mg PO TID 06/20/18 Prochlorperazine Maleate 10 mg PO Q6H PRN PRN 06/20/18 [Compazine] Sennosides/Docusate Sodium 1 each PO DAILY PRN 06/20/18 [Docusate Sodium-Senna Tablet] Tiotropium Br/Olodaterol HCl 4 gm IH BID 06/20/18 [Stiolto Respimat Inhal Nebo] Surgical History: Surgical History (Last Reviewed 08/20/18 @ 21:30 by oShan Waddell MD) History of lung biopsy Z98.890 [facility] 09/29/17, Surgical History: - - x 2, foot surgery, port placement. 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: No pertinent CASE ASSEMBLER history Smoking Status: Current every day smoker - *Family History Maternal Family History: Family History (Last Reviewed 08/20/18 @ 21:30 by Sohan Waddell MD) Mother Diabetes Hypertension Cancer Father Cancer Headache Sister Cancer Brother Cancer History Items: Diabetes, Hypertension, - - mother of lung CA Paternal Family History: Family History (Last Reviewed 08/20/18 @ 21:30 by Sohan Waddell MD) Mother Diabetes Hypertension Cancer Father Cancer Headache Sister Cancer Brother Cancer History Items: - - father had pancreatitic CA Sibling Family History: Family History (Last Reviewed 08/20/18 @ 21:30 by Sohan Waddell MD) Mother Diabetes Hypertension Cancer Father Cancer Headache Sister Cancer Brother Cancer History Items: Cancer - 1 sister of lymphoma and a brother with pancreatic, - - no one in her family has been diagnosed with BPD Review of Systems Constitutional: Reports: Anorexia, Weakness, Fatigue. Denies: Chills, Fever, Weight Change HEENT: Denies: Head Aches, Sinus Congestion, Sinus Drainage Cardiovascular: Denies: Chest Pain, Palpitations Respiratory: Reports: Shortness of breath at rest. Denies: Cough, Sputum production Gastrointestinal: Reports: Abdominal Pain, Constipation. Denies: Nausea, Vomiting Genitourinary: Denies: Dysuria Musculoskeletal: Denies: Joint Pain, Joint Tenderness Skin: Denies: Rash, Wounds Neurological: Denies: Numbness, Tingling, Focal weakness Psychiatric: Denies: Anxiety, Depression, Homicidal Ideations, Suicidal Ideations Hematologic/ Lymphatic: Denies: Easy Bruising, Easy Bleeding VTE Information - Inpt Only VTE Present on Admission: No VTE Mechan Device Prophylaxis: None VTE Pharm Prophylaxis ordered?: Yes Patient Problems: Active and Suspected Problems (Last Reviewed 08/20/18 @ 21:30 by Sohan Waddell MD) Generalized weakness (Acute) Hypotension (Acute) - Physical Exam General: Alert, Oriented x3, Cooperative HEENT: Atraumatic, PERRLA, EOMI, Normocephalic Oral: Dry Mucosa Neck: Supple, No JVD, Negative Carotid Bruits Lungs: Clear to auscultation, Normal air movement Cardiovascular: No murmurs, Tachycardic Abdomen: Bowel Sounds Present, Soft, Non Tender Extremities: No edema, Capillary Refill Less than 3 Seconds Skin: No breakdown, - - Petechiae rash on the abdomen that she attributes to chemotherapy. Musculoskeletal: No Tenderness to Palpation of Joints or Extremities Neurological: Neuro grossly intact, - Psych/Mental Status: Depressed, - - Slow speech. Vital Signs Temp Pulse Resp BP Pulse Ox 97.6 F L 117 H 18 81/62 L 98 08/20/18 18:28 08/20/18 20:51 08/20/18 20:51 08/20/18 20:51 08/20/18 20:51 Oxygen Delivery Method Room Air Weight: 75.296 kg Body Mass Index (BMI) 27.6 Laboratory Tests Past 24 Hrs 08/20/18 08/20/18 08/20/18 19:35 19:35 19:35 WBC 6.6 RBC 3.74 L Hgb 11.4 L Hct 33.2 L MCV 88.8 MCH 30.5 MCHC 34.3 RDW 14.8 H RDW Differential 47.7 H Plt Count 231 MPV 9.4 Immature Gran % (Auto) 0.600 Neut % (Auto) 68.2 Lymph % (Auto) 18.8 L [place] % (Auto) 11.1 H Eos % (Auto) 0.8 Baso % (Auto) 0.5 Absolute Neuts (auto) 4.5 Absolute Lymphs (auto) 1.23 Total Counted Not Reportable Differential Comment SCANNED Atypical Lymphocytes RARE Platelet Estimate ADEQUATE Tear Drop Cells RARE Sodium 134 L Potassium 2.2 L* Chloride 103 Carbon Dioxide 19.0 L Anion Gap 12 BUN 11 Creatinine 0.66 Estim Creat Clear Calc 87.68 Est GFR (MDRD) Af Amer 121 Est GFR (MDRD) Non-Af 100 BUN/Creatinine Ratio 16.7 Glucose 101 Calcium 9.5 Total Bilirubin 0.50 Direct Bilirubin 0.14 AST 13 L ALT 15 Alkaline Phosphatase 89 Total Creatine Kinase 24 L Total Protein 6.5 Albumin 2.9 L Globulin 3.6 Assessment/Plan All Active Problems (Last Reviewed 08/20/18 @ 21:30 by Sohan Waddell MD) Acute kidney injury (Resolved) Hypokalemia (Acute) Hyponatremia (Acute) Severe dehydration (Acute) Generalized weakness (Acute) Hypotension (Acute) Nausea & vomiting (Resolved) Regional lymph node metastasis present (Acute) The patient is a 53 year old F with a significant history of small cell lung cancer and on chemotherapy with next chemotherapy scheduled for September 16, 2018; anxiety disorder; COPD; and tobacco abuse who presented because recurrent generalized weakness; hypertension and hypokalemia. Generalized weakness Likely secondary to hypotension with severe hypokalemia. Received normal saline IV bolus at emergency department. Will trend blood pressures. Meanwhile we will start patient on lactated Ringer's with potassium. Will give by mouth potassium supplementation. On last admission consideration was made for adrenal insufficiency. We will check morning cortisol. Differential diagnosis include hypokalemic periodic paralysis since patient has had many episodes of hypokalemia. Hypokalemia EKG shows a probable atrial enlargement without any ominous abnormality. Admit to progressive care unit and place on telemetry. Treatment as above Check magnesium Trend BMP Hypotension Treatment as in Generalized weakness. Trend blood pressures. Probable adrenal insufficiency Management as in general weakness. Will request records from [facility]. Meanwhile we will start patient on hydrocortisone and Florinef. Constipation Senokot ordered. Small cell lung cancer Patient follows up with [facility]. She reports that her next chemotherapy is scheduled for September 16, 2018. Continue outpatient chemotherapy. Continue home pain medication. Anemia Chronic And hemoglobin on admission was 11.4 that is about her baseline. Likely secondary to anemia of chronic disease. No interventions at this time. COPD Appears stable. Tobacco abuse Patient reports that she was scheduled to begin nicotine replacement outpatient. Nicotine gum will be started here. DVT prophylaxis: The patient is a high risk from her cancer. Lovenox ordered. Code Visit Inpatient E&M: 04792 Init Hosp L3
[2018-08-20 21:27] VITALS: BP 91/64; PULSE 113; RESP 14; O2SAT 96
[2018-08-20] MEDS: 0.9% Normal Saline 1,000 ML 999 ML IV (21:37)
[2018-08-20 22:13] VITALS: BP 88/58; PULSE 109; RESP 20; TEMP 36.7; O2SAT 97
[2018-08-20 22:15] VITALS: BMI 21.5
[2018-08-20 22:18] VITALS: PULSE 108
[2018-08-20 22:36] VITALS: BMI 21.6
[2018-08-20] MEDS: Mirtazapine 15 MG Tablet PO (22:53)
[2018-08-20] MEDS: Oxybutynin 5 MG Tablet PO (22:53)
[2018-08-20] MEDS: Senna/Docusate Sodium 1 Tablet PO (22:53)
[2018-08-20 22:54] LABS: Thyroid Stim Hormone (TSH) 1.15 uIU/mL (0.358-3.74)
[2018-08-20] MEDS: Fludrocortisone Acetate 0.1 MG Tablet PO (22:54)
[2018-08-20] MEDS: Hydrocortisone Sod Succinate 100 MG/2 ML Vial 50 MG IV (22:54)
[2018-08-20 22:59] VITALS: PULSE 113
[2018-08-20] MEDS: 0.9% NaCl VAD Flush 10 ML IV (23:01)
[2018-08-21] VITALS (13 sets, daily range): BP systolic 93–105; BP diastolic 59–69; PULSE 74–116; RESP 13–20; TEMP 36.4–36.8; O2SAT 95–99
[2018-08-21] MEDS: 0.9% NaCl VAD Flush 10 ML IV ×4 (05:06→19:57)
[2018-08-21 05:44] LABS: Anion Gap 12 (5-15); BUN 9 mg/dL (7-18); BUN/Creat Ratio 15.7 RATIO (10-20); Calcium,Total 8.7 mg/dL (8.5-10.1); Chloride 112 mmol/L (98-107); Creatinine, Serum 0.57 mg/dL (0.55-1.02); EST Glomerular Filtration Rate 117 mL/min (>60); Est Glom Filt Rate - Afr Amer 142 mL/min (>60); Estimated Creatinine Clearance 101.53 ml/min; Glucose 111 mg/dL (74-106); Potassium 3.2 mmol/L (3.5-5.1); Sodium Level 141 mmol/L (136-145)
[2018-08-21] MEDS: Hydrocortisone Sod Succinate 100 MG/2 ML Vial 50 MG IV ×3 (06:08→19:57)
[2018-08-21] MEDS: Oxybutynin 5 MG Tablet PO ×3 (06:08→19:57)
[2018-08-21 08:49] LABS: Phosphorus 3.5 mg/dL (2.5-4.9)
[2018-08-21] MEDS: Senna/Docusate Sodium 1 Tablet PO (09:06)
[2018-08-21] MEDS: Fludrocortisone Acetate 0.1 MG Tablet PO ×2 (09:06→19:57)
--- NOTE | 2018-08-21 10:58 | CASEMGMT ---
JENNIFER LOZANO assessment: Face to Face with patient for initial transition planning/care coordination assessment. JENNIFER LOZANO introduced self and role at [facility], pt voices understanding and consents to assessment at this time. Pt is sitting up in chair in no distress at this time. Pt is A/Ox44 at this time and answers most questions appropriately at this time but does mis-answer some questions at times. Pt's daughter is at bedside during assessment and assists with questions at times. Care providers, pharmacy, and demographics verified at this time. PCP: [facility] Specialists: [facility]-pt/daughter state that pt is to start chemo again on 09/16/18 Preferred [facility]acy: [facility] Insurance: [facility] Prescription Benefit: [facility] Living Will/HPOA: Pt states does have LW/HPOA and her friend, Héctor Magana, is HPOA. AD are on file at [facility] at this time. LNOK: Héctor Magana, friend/HPOA; Judi Luo, daughter Living Arrangements: Pt states she lives in a 2nd floor apt and has been having difficulty ambulating at home. Pt has not been going out at all and cannot get up or down steps to apt on her own. Per daughter, pt's friend, Héctor, brings her food but daughter doesn't believe the pt has been eating much lately d/t inability to ambulate. Daughter states that pt's cats had no food also. Transportation: Pt states that her friend, Héctor, drives her and states no transportation concerns at this time. DME/HHC: Pt states has the following DME: raised toilet seat, grab bars, shower chair, and walker. Pt states has not had HHC but she has been to [facility] in [place] but does not want to go back there. Therapy is recommending SNF for pt at this time and pt would like to see if [facility] in [place] has a bed available. Dayna LOPES aware of all, voices understanding. Pt/daughter were provided with a list in-network group home facilities as well. Pt states did contact waiver program and is scheduled to have assessment next tuesday. Pt also states has an RN through [facility]. Pt/daughter do state concerns with pt going home at time of discharge. Pt is unemployed. Pt does still smoke about 1/2 pack cigarettes daily and does not drink ETOH. Pt's daughter states that pt does smoke marijuana daily and has a 'medical marijauna card.' Pt does get tearful several times throughout assessment. Plan: SNF SStyasmine RODRIGUEZ CM
--- NOTE | 2018-08-21 11:27 | CASEMGMT ---
RN MARTA spoke with patient and her daughter. They are asking about [facility]. SW called [facility] and spoke with Katia regarding referral and also faxed information. Josy RODRIGUEZ MSW
--- NOTE | 2018-08-21 12:42 | PN_ITS ---
<Geri Ellington - Last Filed: 08/21/18 12:43> Patient Problems: Active and Suspected Problems (Last Reviewed 08/20/18 @ 21:30 by Sohan Waddell MD) Generalized weakness (Acute) Hypotension (Acute) Subjective: Patient seen and examined. Daughter at bedside. Patient reports generalized weakness. Daughter states patient is having difficulty caring for self. POA and friend of patient, Brian providing significant help at home. Patient agreeable to SNF. - Physical Exam General: Alert, Oriented x3, Cooperative, No apparent distress HEENT: Atraumatic, PERRLA, EOMI, Normocephalic Oral: Dry Mucosa Neck: Supple, No JVD, Negative Carotid Bruits Lungs: Clear to auscultation, Normal air movement Cardiovascular: Regular rate, Regular Rhythm, Normal S1, Normal S2, No murmurs Abdomen: Bowel Sounds Present, Soft, Non Tender, Non-Distended Extremities: No clubbing, No cyanosis, No edema, Capillary Refill Less than 3 Seconds Skin: No rashes, No breakdown Musculoskeletal: No Tenderness to Palpation of Joints or Extremities Neurological: Cranial nerves II-XII grossly intact, Neuro grossly intact Psych/Mental Status: Flat Affect Vital Signs Temp Pulse Resp BP Pulse Ox 98.0 F 107 H 16 93/62 97 08/21/18 09:12 08/21/18 11:00 08/21/18 09:12 08/21/18 09:12 08/21/18 09:12 Oxygen Delivery Method Room Air Weight: 131 lb 9.855 oz Body Mass Index (BMI) 21.5 Intake and Output for Last 24 Hours 08/19/18 08/20/18 08/21/18 23:59 23:59 23:59 Intake Total 1235 / 1235 2140 / 2140 Output Total 0 / 0 Balance 1235 / 1235 2140 / 2140 Laboratory Tests Past 24 Hrs 08/20/18 08/20/18 08/20/18 19:35 19:35 19:35 WBC 6.6 RBC 3.74 L Hgb 11.4 L Hct 33.2 L MCV 88.8 MCH 30.5 MCHC 34.3 RDW 14.8 H RDW Differential 47.7 H Plt Count 231 MPV 9.4 Immature Gran % (Auto) 0.600 Neut % (Auto) 68.2 Lymph % (Auto) 18.8 L [place] % (Auto) 11.1 H Eos % (Auto) 0.8 Baso % (Auto) 0.5 Absolute Neuts (auto) 4.5 Absolute Lymphs (auto) 1.23 Total Counted Not Reportable Differential Comment SCANNED Atypical Lymphocytes RARE Platelet Estimate ADEQUATE Tear Drop Cells RARE Sodium 134 L Potassium 2.2 L* Chloride 103 Carbon Dioxide 19.0 L Anion Gap 12 BUN 11 Creatinine 0.66 Estim Creat Clear Calc 87.68 Est GFR (MDRD) Af Amer 121 Est GFR (MDRD) Non-Af 100 BUN/Creatinine Ratio 16.7 Glucose 101 Calcium 9.5 Phosphorus Magnesium Total Bilirubin 0.50 Direct Bilirubin 0.14 AST 13 L ALT 15 Alkaline Phosphatase 89 Total Creatine Kinase 24 L Total Protein 6.5 Albumin 2.9 L Globulin 3.6 TSH 08/20/18 08/20/18 08/21/18 19:35 19:35 05:05 WBC RBC Hgb Hct MCV MCH MCHC RDW RDW Differential Plt Count MPV Immature Gran % (Auto) Neut % (Auto) Lymph % (Auto) [place] % (Auto) Eos % (Auto) Baso % (Auto) Absolute Neuts (auto) Absolute Lymphs (auto) Total Counted Differential Comment Atypical Lymphocytes Platelet Estimate Tear Drop Cells Sodium 141 Potassium 3.2 L Chloride 112 H Carbon Dioxide 17.0 L Anion Gap 12 BUN 9 Creatinine 0.57 Estim Creat Clear Calc 101.53 Est GFR (MDRD) Af Amer 142 Est GFR (MDRD) Non-Af 117 BUN/Creatinine Ratio 15.7 Glucose 111 H Calcium 8.7 Phosphorus Magnesium 2.0 Total Bilirubin Direct Bilirubin AST ALT Alkaline Phosphatase Total Creatine Kinase Total Protein Albumin Globulin TSH 1.15 08/21/18 05:05 WBC RBC Hgb Hct MCV MCH MCHC RDW RDW Differential Plt Count MPV Immature Gran % (Auto) Neut % (Auto) Lymph % (Auto) [place] % (Auto) Eos % (Auto) Baso % (Auto) Absolute Neuts (auto) Absolute Lymphs (auto) Total Counted Differential Comment Atypical Lymphocytes Platelet Estimate Tear Drop Cells Sodium Potassium Chloride Carbon Dioxide Anion Gap BUN Creatinine Estim Creat Clear Calc Est GFR (MDRD) Af Amer Est GFR (MDRD) Non-Af BUN/Creatinine Ratio Glucose Calcium Phosphorus 3.5 Magnesium Total Bilirubin Direct Bilirubin AST ALT Alkaline Phosphatase Total Creatine Kinase Total Protein Albumin Globulin TSH Medical Necessity - Tobacco Use Smoking Status: Current every day smoker Assessment/Plan All Active Problems (Last Reviewed 08/20/18 @ 21:30 by Sohan Waddell MD) Acute kidney injury (Resolved) Hypokalemia (Acute) Hyponatremia (Acute) Severe dehydration (Acute) Generalized weakness (Acute) Hypotension (Acute) Nausea & vomiting (Resolved) Regional lymph node metastasis present (Acute) 1. Acute recurrent hypokalemia-patient previously prescribed potassium supplementation which she reports she has not been taking. Hypokalemia previously suspected due to adrenal insufficiency versus secondary to cisplatin regimen. Replaced per protocol. Started on Florinef on admission. Trend BMP. Patient will need to have routine potassium monitoring and supplemental potassium at discharge to SNF. 2. Failure to thrive, debility- PT/OT. Patient reported to have difficulty caring for self at home. Agreeable to SNF. Case management/social work following. 3. Hypotension secondary to hypovolemia as a result of poor oral intake- improved with IV fluids. 4. Small cell lung cancer-follows with [facility]. Scheduled to begin chemotherapy September 16. 5. Chronic normochromic normocytic anemia-stable. 6. Chronic COPD-no acute exacerbation. Albuterol DuoNeb aerosols. 7. Tobacco dependence-encourage smoking cessation. 8. Anxiety/depression-continue home regimen. 9. Chronic constipation-continue bowel regimen. DVT prophylaxis-Lovenox sc Discharge planning: SNF pending acceptance. This patient was seen by GRAYSON Tenorio under the supervision of Dr. Allison. <Antonio Allison F - Last Filed: 08/21/18 14:53> - Physical Exam Vital Signs Temp Pulse Resp BP Pulse Ox 97.6 F L 111 H 13 97/59 L 99 08/21/18 14:10 08/21/18 14:10 08/21/18 14:10 08/21/18 14:10 08/21/18 14:10 Oxygen Delivery Method Room Air Weight: 131 lb 9.855 oz Body Mass Index (BMI) 21.5 Intake and Output for Last 24 Hours 08/19/18 08/20/18 08/21/18 23:59 23:59 23:59 Intake Total 1235 / 1235 2140 / 2140 Output Total 0 / 0 Balance 1235 / 1235 2140 / 2140 Laboratory Tests Past 24 Hrs 08/20/18 08/20/18 08/20/18 19:35 19:35 19:35 WBC 6.6 RBC 3.74 L Hgb 11.4 L Hct 33.2 L MCV 88.8 MCH 30.5 MCHC 34.3 RDW 14.8 H RDW Differential 47.7 H Plt Count 231 MPV 9.4 Immature Gran % (Auto) 0.600 Neut % (Auto) 68.2 Lymph % (Auto) 18.8 L [place] % (Auto) 11.1 H Eos % (Auto) 0.8 Baso % (Auto) 0.5 Absolute Neuts (auto) 4.5 Absolute Lymphs (auto) 1.23 Total Counted Not Reportable Differential Comment SCANNED Atypical Lymphocytes RARE Platelet Estimate ADEQUATE Tear Drop Cells RARE Sodium 134 L Potassium 2.2 L* Chloride 103 Carbon Dioxide 19.0 L Anion Gap 12 BUN 11 Creatinine 0.66 Estim Creat Clear Calc 87.68 Est GFR (MDRD) Af Amer 121 Est GFR (MDRD) Non-Af 100 BUN/Creatinine Ratio 16.7 Glucose 101 Calcium 9.5 Phosphorus Magnesium Total Bilirubin 0.50 Direct Bilirubin 0.14 AST 13 L ALT 15 Alkaline Phosphatase 89 Total Creatine Kinase 24 L Total Protein 6.5 Albumin 2.9 L Globulin 3.6 TSH 08/20/18 08/20/18 08/21/18 19:35 19:35 05:05 WBC RBC Hgb Hct MCV MCH MCHC RDW RDW Differential Plt Count MPV Immature Gran % (Auto) Neut % (Auto) Lymph % (Auto) [place] % (Auto) Eos % (Auto) Baso % (Auto) Absolute Neuts (auto) Absolute Lymphs (auto) Total Counted Differential Comment Atypical Lymphocytes Platelet Estimate Tear Drop Cells Sodium 141 Potassium 3.2 L Chloride 112 H Carbon Dioxide 17.0 L Anion Gap 12 BUN 9 Creatinine 0.57 Estim Creat Clear Calc 101.53 Est GFR (MDRD) Af Amer 142 Est GFR (MDRD) Non-Af 117 BUN/Creatinine Ratio 15.7 Glucose 111 H Calcium 8.7 Phosphorus Magnesium 2.0 Total Bilirubin Direct Bilirubin AST ALT Alkaline Phosphatase Total Creatine Kinase Total Protein Albumin Globulin TSH 1.15 08/21/18 05:05 WBC RBC Hgb Hct MCV MCH MCHC RDW RDW Differential Plt Count MPV Immature Gran % (Auto) Neut % (Auto) Lymph % (Auto) [place] % (Auto) Eos % (Auto) Baso % (Auto) Absolute Neuts (auto) Absolute Lymphs (auto) Total Counted Differential Comment Atypical Lymphocytes Platelet Estimate Tear Drop Cells Sodium Potassium Chloride Carbon Dioxide Anion Gap BUN Creatinine Estim Creat Clear Calc Est GFR (MDRD) Af Amer Est GFR (MDRD) Non-Af BUN/Creatinine Ratio Glucose Calcium Phosphorus 3.5 Magnesium Total Bilirubin Direct Bilirubin AST ALT Alkaline Phosphatase Total Creatine Kinase Total Protein Albumin Globulin TSH Code Visit Addendum: Dr. Allison I personally examined the patient and reviewed the chart. I agree with the above. 53-year-old female with small cell lung cancer who had undergone multiple cycles of treatment with cisplatin as well as immunotherapy. Her initial cancer was treated in 2014 with cisplatin, and then she had a recurrence in 2016 based on the left upper lobe biopsy at [place]. She has since completed 4 cycles of immunotherapy and she states that she is supposed to start cisplatin again on September 16 of this year. She is currently hypokalemic making adrenal insufficiency unlikely, and she had had multiple cortisols tested in May, and all were normal. She states that she has potassium supplementation at home which she does not take. Will replace her potassium while here and have physical therapy evaluate her for possible placement in a SNF. Inpatient E&M: 36453 Subs Hosp L2
[2018-08-21] MEDS: Ipratropium/Albuterol Sulfate 3 ML AMPUL.NEB INHALATION (12:57)
--- NOTE | 2018-08-21 13:17 | CASEMGMT ---
Received return call from Freida at [facility] and they are not able to accept patient at this time due to insurance and reimbursement issues. SW spoke with patient and her healthcare POA, Héctor letting them know [facility] cannot accept and that SW will need a couple of other options. They will discuss this and then let SW know. RN CM gave them a list of in network SNF's. Josy RODRIGUEZ MSW
--- NOTE | 2018-08-21 14:00 | CASEMGMT ---
Patient's daughter came to the desk and asked for SW. SW spoke with her and they would like SW to send referrals to [facility]. SW told her SW will do this and let them know when SW hears back from them. SW called both facilities and left messages with referrals as well as faxed referrals. Josy RODRIGUEZ MSW
--- NOTE | 2018-08-21 14:13 | CASEMGMT ---
Copies of both healthcare POA and LW are on file in patient's chart. Josy RODRIGUEZ MSW
--- NOTE | 2018-08-21 14:22 | CASEMGMT ---
MOSES received a return call from Ita at [facility]. They can accept patient. MOSES called [facility] again and Elsa is out for the day. MOSES spoke with patient, her daughter, and her friend, Brian. Everyone agrees [facility] is fine. MOSES called Ita back and she will start the pre-cert. Plan: [facility] pending pre-cert. Josy RODRIGUEZ MSW
[2018-08-21] MEDS: Mirtazapine 15 MG Tablet PO (19:57)
--- NOTE | 2018-08-21 20:01 | NURSING ---
Pt requesting meds to be given early.
[2018-08-21] MEDS: oxyCODONE 5 MG Tablet PO (20:25)
[2018-08-22] VITALS (10 sets, daily range): BP systolic 105–136; BP diastolic 67–84; PULSE 85–117; RESP 15–18; TEMP 36.4–36.6; O2SAT 92–99
[2018-08-22] MEDS: 0.9% NaCl VAD Flush 10 ML IV ×5 (05:10→18:17)
[2018-08-22 06:10] LABS: Anion Gap 10 (5-15); BUN 10 mg/dL (7-18); BUN/Creat Ratio 18.1 RATIO (10-20); Calcium,Total 8.9 mg/dL (8.5-10.1); Chloride 116 mmol/L (98-107); Creatinine, Serum 0.55 mg/dL (0.55-1.02); EST Glomerular Filtration Rate 122 mL/min (>60); Est Glom Filt Rate - Afr Amer 148 mL/min (>60); Estimated Creatinine Clearance 105.22 ml/min; Glucose 119 mg/dL (74-106); Potassium 3.1 mmol/L (3.5-5.1); Sodium Level 143 mmol/L (136-145)
[2018-08-22] MEDS: Oxybutynin 5 MG Tablet PO ×3 (06:33→18:16)
[2018-08-22] MEDS: Hydrocortisone Sod Succinate 100 MG/2 ML Vial 50 MG IV ×2 (06:33→14:09)
[2018-08-22] MEDS: Ipratropium/Albuterol Sulfate 3 ML AMPUL.NEB INHALATION ×2 (06:55→13:53)
--- NOTE | 2018-08-22 10:58 | CASEMGMT ---
MOSES received a message from Jeannie at [facility]. MOSES spoke with patient and she said her nurse that sees her at home works there. She gave MOSES permission to call them back. MOSES called Jeannie and let her know patient's admission date, status, diagnosis, and d/c plan. Plan: [facility] pending pre-cert. Josy RODRIGUEZ MSW
--- NOTE | 2018-08-22 11:50 | CASEMGMT ---
SW received a voice mail from Ita at [facility]. Patient was approved. Notified SENIOR PRODUCER, Mandy. She feels patient can be discharged today. Josy RODRIGUEZ MSW
--- NOTE | 2018-08-22 13:22 | MRI_ITS ---
STUDY: MRI BRAIN WITH AND WITHOUT CONTRAST REASON FOR EXAM: Female, 53 years old. Confusion and history lung cancer TECHNIQUE: Standardized multiplanar fat and water weighted pulse sequences were obtained. 6 ml of Gadavist contrast material was administered intravenously for the contrast portion of the examination. COMPARISON: None. FINDINGS: Normal size of the ventricles and extra-axial spaces for the patient's age. Mild periventricular white matter ischemic changes without evidence for acute infarct.. Normal bilateral basal ganglia. Normal thalami. There is no extra-axial fluid accumulation. Normal flow voids within the major intracranial circulation suggesting patency by spin echo criteria. Normal venous enhancement. There is no enhancing intra-axial or extra-axial abnormality. Partial empty sella deformity is observed. Normal, infundibular stalk, optic chiasm and hypothalamus. Normal tectal plate and pineal gland. Normal midbrain, roman and medulla. Normal cerebellum. Normal basal cisterns. Normal bilateral temporal bones. Normal bilateral internal auditory canals. There is fluid signal noted within the mastoids greater on the right consistent with inflammatory changes. No demonstrated orbital abnormality, within the constraints of a routine brain study. There is moderate mucosal thickening within the maxillary sinuses.. Normal calvarium and skull base. Normal visualized soft tissue structures. Normal visualized upper cervical spine. MRI/Brain W/WO Contrast IMPRESSION: Mild periventricular white matter ischemic change without evidence for acute infarct. No evidence for metastatic disease. Electronically Signed: Sukhdev Zamudio MD at 16:23 EST , Service support ,
--- NOTE | 2018-08-22 15:00 | CASEMGMT ---
MOSES let patient know she was approved to go to [facility]. After that patient called SW back into her room a couple of times. She was tearful off and on. She would talk about one thing and jump to another. She thought the foot pedals on the bed and called them little sandals. Much of her conversation did not make sense. SECURITY ASSESSOR ordered a brain MRI. SW will follow to notify [facility] and patient's daughter if she is still being discharged. MOSES did call patient's daughter and let her know patient was approved and will likely be going to [facility] today.(this was prior to SW going back into the room) Josy RODRIGUEZ GROUP PRESIDENT
--- NOTE | 2018-08-22 15:51 | PN_ITS ---
Patient Problems: Active and Suspected Problems (Last Reviewed 08/20/18 @ 21:30 by Sohan Waddell MD) Generalized weakness (Acute) Hypotension (Acute) Subjective: Patient seen and examined. Confused, daughter reports patient has been hallucinating. Patient denies current complaints. - Physical Exam General: Alert, Cooperative, No apparent distress HEENT: Atraumatic, PERRLA, EOMI, Normocephalic Neck: Supple, No JVD, Negative Carotid Bruits Lungs: Clear to auscultation, Normal air movement Cardiovascular: Regular rate, Regular Rhythm, Normal S1, Normal S2, No murmurs Abdomen: Bowel Sounds Present, Soft, Non Tender, Non-Distended Extremities: No clubbing, No cyanosis, No edema, Capillary Refill Less than 3 Seconds Skin: No rashes, No breakdown Musculoskeletal: No Tenderness to Palpation of Joints or Extremities Neurological: Cranial nerves II-XII grossly intact, Neuro grossly intact Psych/Mental Status: Flat Affect Vital Signs Temp Pulse Resp BP Pulse Ox 97.9 F 114 H 18 119/73 94 08/22/18 14:31 08/22/18 14:31 08/22/18 14:31 08/22/18 14:31 08/22/18 14:31 Oxygen Delivery Method Room Air Weight: 131 lb 9.855 oz Body Mass Index (BMI) 21.5 Intake and Output for Last 24 Hours 08/20/18 08/21/18 08/22/18 23:59 23:59 23:59 Intake Total 1235 / 1235 3502 / 3502 540 / 540 Output Total 0 / 0 400 / 400 Balance 1235 / 1235 3502 / 3502 140 / 140 Laboratory Tests Past 24 Hrs 08/22/18 05:10 Sodium 143 Potassium 3.1 L Chloride 116 H Carbon Dioxide 17.0 L Anion Gap 10 BUN 10 Creatinine 0.55 Estim Creat Clear Calc 105.22 Est GFR (MDRD) Af Amer 148 Est GFR (MDRD) Non-Af 122 BUN/Creatinine Ratio 18.1 Glucose 119 H Calcium 8.9 Medical Necessity - Tobacco Use Smoking Status: Current every day smoker Assessment/Plan All Active Problems (Last Reviewed 08/20/18 @ 21:30 by Sohan Waddell MD) Acute kidney injury (Resolved) Hypokalemia (Acute) Hyponatremia (Acute) Severe dehydration (Acute) Generalized weakness (Acute) Hypotension (Acute) Nausea & vomiting (Resolved) Regional lymph node metastasis present (Acute) 1. Acute recurrent hypokalemia-patient previously prescribed potassium supplementation which she reports she has not been taking. Hypokalemia previously suspected due to adrenal insufficiency versus secondary to cisplatin/immunotherapy regimen. Replaced per protocol. Started on Florinef on admission, discontinued. Do not feel patient has adrenal insufficiency. Trend BMP. Patient will need to have routine potassium monitoring and supplemental potassium at discharge to SNF. 2. Failure to thrive, debility- PT/OT. Patient reported to have difficulty caring for self at home. Agreeable to SNF. Case management/social work following. 3. Hypotension secondary to hypovolemia as a result of poor oral intake- improved with IV fluids. 4. Altered mental status-patient with increased confusion and hallucinations. Obtain MRI of brain to rule out brain mets. If positive, patient may require tsf to [facility] where she follows with oncology. 5. Small cell lung cancer-[facility] with [facility]. Scheduled to begin chemotherapy September 16. 6. Chronic normochromic normocytic anemia-stable. 7. Chronic COPD-no acute exacerbation. Albuterol DuoNeb aerosols. 8. Tobacco dependence-encourage smoking cessation. 9. Anxiety/depression-continue home regimen. 10. Chronic constipation-continue bowel regimen. DVT prophylaxis-Lovenox sc Discharge planning: SNF pending acceptance and MRI brain results. This patient was seen by GRAYSON Tenorio under the supervision of Dr. Allison.
--- NOTE | 2018-08-22 15:59 | CASEMGMT ---
MOSES called Ita at [facility] and let her know patient may not be coming. MOSES told her she is having an MRI of her brain. Green sheet left on chart with instructions should patient be d/c tonight. Josy RODRIGUEZ MSW
--- NOTE | 2018-08-22 16:40 | PCM.EXTCARCO ---
- Diet 08/21/18 11:26 Diet: Regular Diet Is pt able to select menu?: Yes - Routine Orders/Code Status Enema Type: Fleetz Enema Frequency: Daily PRN Suppository Type: Dulcolax 10mg Suppository Frequency: Daily PRN Routine Lab Work: - - BMP daily x3 days then Q week if KCL within normal limits. CBC Q Week. Code Status: Full Code - Wound(s) bilat. LE Wound Type: Abrasion - Suggestions for Active Care Change Position every (hours): 2 Times a day to sit in chair: 3 - Therapies Physical Therapy: Eval and Treat Occupational Therapy: Eval and Treat - Problem/Diagnosis (1) Hypokalemia Status: Acute Current Visit: Yes (2) Generalized weakness Status: Acute Current Visit: Yes (3) Hypotension Status: Acute Current Visit: Yes (4) Bipolar affect, depressed Status: Chronic Current Visit: No (5) Tobacco abuse Status: Chronic Current Visit: No (6) COPD (chronic obstructive pulmonary disease) Status: Chronic Current Visit: No (7) Small cell lung cancer Status: Chronic Current Visit: No - Allergies/Procedures Done in Hospital Allergies/Adverse Reactions: Allergies No Known Allergies Allergy (Verified 05/26/18 12:01) Procedures: None - Type of Care/Length of Stay Estimated LOS: Convalescent Care Less Than 30 days Type of Care Needed: Skilled Rehab Potential: Fair Prognosis: Fair - Additional Orders/Day of Discharge H&P will serve as current which was dated: 08/20/18 Day of Discharge: 08/22/18 - Dietary and Speech Recommendations Dietitian Recommendations/Changes: Suggest liberalize diet to Regular given poor PO at meals--spoke to JENNIFER Hogan. - Follow Up Care Primary Care Physician: Fausto Iverson DO [Primary Care Provider] - Please follow up with your Primary Care Physician in: 1 Week Please Follow Up With: [facility] When: As scheduled Please Follow Up With: Chucky Mckeon MD When: As scheduled, 08/31/18
--- NOTE | 2018-08-22 16:46 | PCM.DC.SUM ---
<Geri Ellington - Last Filed: 08/22/18 16:53> Discharge Date and Diagnosis Date of Admission: 08/20/18 Date of Discharge: 08/22/18 - Primary Discharge Diagnosis Active and Suspected Problems (Last Reviewed 08/20/18 @ 21:30 by Sohan Waddell MD) 1. Acute recurrent hypokalemia, unclear etiology 2. Failure to thrive, debility 3. Hypotension secondary to hypovolemia 4. Altered mental status 5. Small cell lung cancer 6. Chronic normochromic normocytic anemia 7. Chronic COPD 8. Tobacco dependence 9. Anxiety/depression 10. Chronic constipation - Secondary Discharge Diagnosis Chronic Problems (Last Reviewed 08/20/18 @ 21:30 by Sohan Waddell MD) Abnormal EKG (Chronic) Small cell lung cancer (Chronic) Bipolar affect, depressed (Chronic) Pulmonary embolism (Chronic) Tobacco abuse (Chronic) Muscle spasm (Chronic) Periodontal disease (Chronic) care home current use of anticoagulant (Chronic) Acid reflux disease (Chronic) Rotator cuff syndrome (Chronic) Adrenal nodule (Chronic) Small cell lung cancer (Chronic) Lung metastasis (Chronic) COPD (chronic obstructive pulmonary disease) (Chronic) Poor compliance with medication (Chronic) Left atrial thrombus (Chronic) Tobacco dependence (Chronic) PTSD (post-traumatic stress disorder) (Chronic) 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 [place] Spasm of back muscles (Chronic) Manic depression (Chronic) Dyspnea (Chronic) 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 No evidence for metastatic disease. Electronically Signed: Sukhdev Zamudio MD at 16:23 EST , Service support , Operations: None Procedures: None Summary of Care Provided: The patient is a 53 year old F admitted 08/20/2018 due to generalized weakness. 1. Acute recurrent hypokalemia-patient previously prescribed potassium supplementation which she reports she has not been taking. Hypokalemia previously suspected due to adrenal insufficiency versus secondary to cisplatin/immunotherapy regimen. Started on Florinef on admission, discontinued. Do not feel patient has adrenal insufficiency. Etiology unclear at this point. Potassium stable on oral supplemental potassium. Discharge on potassium 40 mEq twice daily. Continue to monitor BMP at SNF. 2. Failure to thrive, debility- PT/OT. Patient reported to have difficulty caring for self at home. SNF at [place]. 3. Hypotension secondary to hypovolemia as a result of poor oral intake-improved with IV fluids. 4. Altered mental status-appears this has been ongoing with prior admission documentation reporting confusion, lethargy. MRI of brain obtained to rule out brain mets. MRI of brain without evidence of acute infarct or metastatic disease. 5. Small cell lung cancer-follows with [facility]. Scheduled to begin chemotherapy September 16. Continue outpatient follow-up as scheduled. 6. Chronic normochromic normocytic anemia-stable. 7. Chronic COPD-no acute exacerbation. 8. Tobacco dependence-encourage smoking cessation. 9. Anxiety/depression-continue home regimen. 10. Chronic constipation-continue bowel regimen. General: Alert, Cooperative, No apparent distress HEENT: Atraumatic, PERRLA, EOMI, Normocephalic Neck: Supple, No JVD, Negative Carotid Bruits Lungs: Clear to auscultation, Normal air movement Cardiovascular: Regular rate, Regular Rhythm, Normal S1, Normal S2, No murmurs Abdomen: Bowel Sounds Present, Soft, Non Tender, Non-Distended Extremities: No clubbing, No cyanosis, No edema, Capillary Refill Less than 3 Seconds Skin: No rashes, No breakdown Musculoskeletal: No Tenderness to Palpation of Joints or Extremities Neurological: Cranial nerves II-XII grossly intact, Neuro grossly intact Psych/Mental Status: Flat Affect Patient seen and examined prior to discharge. Physical assessment as noted above. Patient is stable for discharge with follow up recommendations as noted above. This patient was seen by GRAYSON Tenorio under the supervision of Dr. Allison. - Physical Exam Vital Signs Temp Pulse Resp BP Pulse Ox 97.9 F 113 H 18 119/73 94 08/22/18 14:31 08/22/18 15:51 08/22/18 14:31 08/22/18 14:31 08/22/18 14:31 Oxygen Delivery Method Room Air Weight: 131 lb 9.855 oz Body Mass Index (BMI) 21.5 Intake and Output for Last 24 Hours 08/20/18 08/21/18 08/22/18 23:59 23:59 23:59 Intake Total 1235 / 1235 3502 / 3502 540 / 540 Output Total 0 / 0 400 / 400 Balance 1235 / 1235 3502 / 3502 140 / 140 Laboratory Tests Past 24 Hrs 08/22/18 05:10 Sodium 143 Potassium 3.1 L Chloride 116 H Carbon Dioxide 17.0 L Anion Gap 10 BUN 10 Creatinine 0.55 Estim Creat Clear Calc 105.22 Est GFR (MDRD) Af Amer 148 Est GFR (MDRD) Non-Af 122 BUN/Creatinine Ratio 18.1 Glucose 119 H Calcium 8.9 Home Medications: Medications to take at Discharge Cyclobenzaprine HCl 5 mg PO TID PRN 05/16/18 Ondansetron [Zofran] 8 mg PO Q8H PRN PRN 05/16/18 Diazepam 10 mg PO BID PRN #10 tab 06/02/18 Oxycodone [Oxyir] 5 mg PO Q6H PRN PRN #20 tab 06/02/18 Mirtazapine [Remeron] 15 mg PO HS 06/20/18 Nicotine Polacrilex [Nicotine Gum] 2 mg BC Q1H PRN 06/20/18 Oxybutynin [Ditropan] 5 mg PO TID 06/20/18 Prochlorperazine Maleate [Compazine] 10 mg PO Q6H PRN PRN 06/20/18 Sennosides/Docusate Sodium [Docusate Sodium-Senna Tablet] 1 each PO DAILY PRN 06/20/18 Tiotropium Br/Olodaterol HCl [Stiolto Respimat Inhal [place]] 4 gm IH BID 06/20/18 Potassium Chloride [K-Dur] 40 meq PO BIDCM tablet 08/22/18 Primary Care Physician: Fausto Iverson DO [Primary Care Provider] - Please follow up with your Primary Care Physician in: 1 Week Please Follow Up With: [facility] When: As scheduled Please Follow Up With: Chucky Mckeon MD When: As scheduled, 08/31/18 Disposition: Group Home facility Minutes spent on discharge:: 35 Patient Condition:: Stable Medical Necessity - Tobacco Use Smoking Status: Current every day smoker Meaningful Use Info Meaningful Use Diagnoses (Choose all that apply): None applicable <Antonio Allison - Last Filed: 08/22/18 17:13> Discharge Date and Diagnosis - Secondary Discharge Diagnosis Chronic Problems (Last Reviewed 08/20/18 @ 21:30 by Sohan Waddell MD) Abnormal EKG (Chronic) Small cell lung cancer (Chronic) Bipolar affect, depressed (Chronic) Pulmonary embolism (Chronic) Tobacco abuse (Chronic) Muscle spasm (Chronic) Periodontal disease (Chronic) care home current use of anticoagulant (Chronic) Acid reflux disease (Chronic) Rotator cuff syndrome (Chronic) Adrenal nodule (Chronic) Small cell lung cancer (Chronic) Lung metastasis (Chronic) COPD (chronic obstructive pulmonary disease) (Chronic) Poor compliance with medication (Chronic) Left atrial thrombus (Chronic) Tobacco dependence (Chronic) PTSD (post-traumatic stress disorder) (Chronic) 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 [place] Spasm of back muscles (Chronic) Manic depression (Chronic) Dyspnea (Chronic) 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) Chest pain (Chronic) Hospital Course and Treatment Imaging Results: 08/22/18 13:22 MRI Brain [Brain W/WO Contrast] [MRI] Stat Summary of Care Provided: The patient is a 53 year old F [] - Physical Exam Vital Signs Temp Pulse Resp BP Pulse Ox 97.9 F 113 H 18 119/73 94 08/22/18 14:31 08/22/18 15:51 08/22/18 14:31 08/22/18 14:31 08/22/18 14:31 Oxygen Delivery Method Room Air Weight: 131 lb 9.855 oz Body Mass Index (BMI) 21.5 Intake and Output for Last 24 Hours 08/20/18 08/21/18 08/22/18 23:59 23:59 23:59 Intake Total 1235 / 1235 3502 / 3502 540 / 540 Output Total 0 / 0 400 / 400 Balance 1235 / 1235 3502 / 3502 140 / 140 Laboratory Tests Past 24 Hrs 08/22/18 05:10 Sodium 143 Potassium 3.1 L Chloride 116 H Carbon Dioxide 17.0 L Anion Gap 10 BUN 10 Creatinine 0.55 Estim Creat Clear Calc 105.22 Est GFR (MDRD) Af Amer 148 Est GFR (MDRD) Non-Af 122 BUN/Creatinine Ratio 18.1 Glucose 119 H Calcium 8.9 Code Visit Addendum: Dr. Allison I personally examined the patient and reviewed the chart. I agree with the above. 53-year-old female with a history of small cell lung cancer that was initially found in 2014 on the right. She underwent cisplatin chemotherapy with excellent results, however 2016 she was found to have a left upper lobe mass that on biopsy at [facility] in [place], was found to be small cell lung cancer. She underwent treatments with immunotherapy with the last one being in April 2018. She also had had an MRI in January which was now for any metastases. She also had prophylactic whole brain radiation. She presented to the hospital with weakness, failure to thrive, inability to complete ADLs and was found to have a significantly low potassium. She was started on IV replacement as well as p.o. replacement and on the day of discharge her potassium was 3.1. Magnesium and phosphorus were also obtained and were normal. She was started on p.o. potassium replacement twice daily. Initially there is a thought that this could be adrenal insufficiency and was started on both hydrocortisone and Florinef on admission, however given the fact that her potassium was low not high makes adrenal insufficiency unlikely, also she had had multiple cortisol levels checked back in May of this year all of which were normal. She did have an episode of confusion today that per the daughter was abnormal, so another MRI was obtained today with and without contrast which was negative for any brain metastases. On reevaluation, patient had returned to baseline. Plan will be for discharge to SNF, and would recommend repeating BMPs for the next 3 days and adjusting p.o. potassium as needed. Inpatient E&M: [id number] Disch Hosp
--- NOTE | 2018-08-22 16:52 | DS.PCM_ITS ---
<Geri Ellington - Last Filed: 08/22/18 16:53> Discharge Date and Diagnosis Date of Admission: 08/20/18 Date of Discharge: 08/22/18 - Primary Discharge Diagnosis Active and Suspected Problems (Last Reviewed 08/20/18 @ 21:30 by Sohan Waddell MD) 1. Acute recurrent hypokalemia, unclear etiology 2. Failure to thrive, debility 3. Hypotension secondary to hypovolemia 4. Altered mental status 5. Small cell lung cancer 6. Chronic normochromic normocytic anemia 7. Chronic COPD 8. Tobacco dependence 9. Anxiety/depression 10. Chronic constipation - Secondary Discharge Diagnosis Chronic Problems (Last Reviewed 08/20/18 @ 21:30 by Sohan Waddell MD) Abnormal EKG (Chronic) Small cell lung cancer (Chronic) Bipolar affect, depressed (Chronic) Pulmonary embolism (Chronic) Tobacco abuse (Chronic) Muscle spasm (Chronic) Periodontal disease (Chronic) halfway current use of anticoagulant (Chronic) Acid reflux disease (Chronic) Rotator cuff syndrome (Chronic) Adrenal nodule (Chronic) Small cell lung cancer (Chronic) Lung metastasis (Chronic) COPD (chronic obstructive pulmonary disease) (Chronic) Poor compliance with medication (Chronic) Left atrial thrombus (Chronic) Tobacco dependence (Chronic) PTSD (post-traumatic stress disorder) (Chronic) 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 [place] Spasm of back muscles (Chronic) Manic depression (Chronic) Dyspnea (Chronic) 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 No evidence for metastatic disease. Electronically Signed: Sukhdev Zamudio MD at 16:23 EST , Service support , Operations: None Procedures: None Summary of Care Provided: The patient is a 53 year old F admitted 08/20/2018 due to generalized weakness. 1. Acute recurrent hypokalemia-patient previously prescribed potassium supplementation which she reports she has not been taking. Hypokalemia previously suspected due to adrenal insufficiency versus secondary to cisp latin/immunotherapy regimen. Started on Florinef on admission, discontinued. Do not feel patient has adrenal insufficiency. Etiology unclear at this point. Potassium stable on oral supplemental potassium. Discharge on potassium 40 mEq twice daily. Continue to monitor BMP at SNF. 2. Failure to thrive, debility- PT/OT. Patient reported to have difficulty caring for self at home. SNF at [place]. 3. Hypotension secondary to hypovolemia as a result of poor oral intake- improved with IV fluids. 4. Altered mental status-appears this has been ongoing with prior admission documentation reporting confusion, lethargy. MRI of brain obtained to rule out brain mets. MRI of brain without evidence of acute infarct or metastatic disease. 5. Small cell lung cancer-follows with [facility]. Scheduled to begin chemotherapy September 16. Continue outpatient follow-up as scheduled. 6. Chronic normochromic normocytic anemia-stable. 7. Chronic COPD-no acute exacerbation. 8. Tobacco dependence-encourage smoking cessation. 9. Anxiety/depression-continue home regimen. 10. Chronic constipation-continue bowel regimen. General: Alert, Cooperative, No apparent distress HEENT: Atraumatic, PERRLA, EOMI, Normocephalic Neck: Supple, No JVD, Negative Carotid Bruits Lungs: Clear to auscultation, Normal air movement Cardiovascular: Regular rate, Regular Rhythm, Normal S1, Normal S2, No murmurs Abdomen: Bowel Sounds Present, Soft, Non Tender, Non-Distended Extremities: No clubbing, No cyanosis, No edema, Capillary Refill Less than 3 Seconds Skin: No rashes, No breakdown Musculoskeletal: No Tenderness to Palpation of Joints or Extremities Neurological: Cranial nerves II-XII grossly intact, Neuro grossly intact Psych/Mental Status: Flat Affect Patient seen and examined prior to discharge. Physical assessment as noted above. Patient is stable for discharge with follow up recommendations as noted above. This patient was seen by GRAYSON Tenorio under the supervision of Dr. Allison. - Physical Exam Vital Signs Temp Pulse Resp BP Pulse Ox 97.9 F 113 H 18 119/73 94 08/22/18 14:31 08/22/18 15:51 08/22/18 14:31 08/22/18 14:31 08/22/18 14:31 Oxygen Delivery Method Room Air Weight: 131 lb 9.855 oz Body Mass Index (BMI) 21.5 Intake and Output for Last 24 Hours 08/20/18 08/21/18 08/22/18 23:59 23:59 23:59 Intake Total 1235 / 1235 3502 / 3502 540 / 540 Output Total 0 / 0 400 / 400 Balance 1235 / 1235 3502 / 3502 140 / 140 Laboratory Tests Past 24 Hrs 08/22/18 05:10 Sodium 143 Potassium 3.1 L Chloride 116 H Carbon Dioxide 17.0 L Anion Gap 10 BUN 10 Creatinine 0.55 Estim Creat Clear Calc 105.22 Est GFR (MDRD) Af Amer 148 Est GFR (MDRD) Non-Af 122 BUN/Creatinine Ratio 18.1 Glucose 119 H Calcium 8.9 Home Medications: Medications to take at Discharge Cyclobenzaprine HCl 5 mg PO TID PRN 05/16/18 Ondansetron [Zofran] 8 mg PO Q8H PRN PRN 05/16/18 Diazepam 10 mg PO BID PRN #10 tab 06/02/18 Oxycodone [Oxyir] 5 mg PO Q6H PRN PRN #20 tab 06/02/18 Mirtazapine [Remeron] 15 mg PO HS 06/20/18 Nicotine Polacrilex [Nicotine Gum] 2 mg BC Q1H PRN 06/20/18 Oxybutynin [Ditropan] 5 mg PO TID 06/20/18 Prochlorperazine Maleate [Compazine] 10 mg PO Q6H PRN PRN 06/20/18 Sennosides/Docusate Sodium [Docusate Sodium-Senna Tablet] 1 each PO DAILY PRN 06/20/18 Tiotropium Br/Olodaterol HCl [Stiolto Respimat Inhal [place]] 4 gm IH BID 06/20/18 Potassium Chloride [K-Dur] 40 meq PO BIDCM tablet 08/22/18 Primary Care Physician: Fausto Iverson DO [Primary Care Provider] - Please follow up with your Primary Care Physician in: 1 Week Please Follow Up With: [facility] When: As scheduled Please Follow Up With: Chucky Mckeon MD When: As scheduled, 08/31/18 Disposition: Snf facility Minutes spent on discharge:: 35 Patient Condition:: Stable Medical Necessity - Tobacco Use Smoking Status: Current every day smoker Meaningful Use Info Meaningful Use Diagnoses (Choose all that apply): None applicable <Antonio Allison Henry - Last Filed: 08/22/18 17:13> Discharge Date and Diagnosis - Secondary Discharge Diagnosis Chronic Problems (Last Reviewed 08/20/18 @ 21:30 by Sohan Waddell MD) Abnormal EKG (Chronic) Small cell lung cancer (Chronic) Bipolar affect, depressed (Chronic) Pulmonary embolism (Chronic) Tobacco abuse (Chronic) Muscle spasm (Chronic) Periodontal disease (Chronic) halfway current use of anticoagulant (Chronic) Acid reflux disease (Chronic) Rotator cuff syndrome (Chronic) Adrenal nodule (Chronic) Small cell lung cancer (Chronic) Lung metastasis (Chronic) COPD (chronic obstructive pulmonary disease) (Chronic) Poor compliance with medication (Chronic) Left atrial thrombus (Chronic) Tobacco dependence (Chronic) PTSD (post-traumatic stress disorder) (Chronic) 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 [place] Spasm of back muscles (Chronic) Manic depression (Chronic) Dyspnea (Chronic) 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) Chest pain (Chronic) Hospital Course and Treatment Imaging Results: 08/22/18 13:22 MRI Brain [Brain W/WO Contrast] [MRI] Stat Summary of Care Provided: The patient is a 53 year old F [] - Physical Exam Vital Signs Temp Pulse Resp BP Pulse Ox 97.9 F 113 H 18 119/73 94 08/22/18 14:31 08/22/18 15:51 08/22/18 14:31 08/22/18 14:31 08/22/18 14:31 Oxygen Delivery Method Room Air Weight: 131 lb 9.855 oz Body Mass Index (BMI) 21.5 Intake and Output for Last 24 Hours 08/20/18 08/21/18 08/22/18 23:59 23:59 23:59 Intake Total 1235 / 1235 3502 / 3502 540 / 540 Output Total 0 / 0 400 / 400 Balance 1235 / 1235 3502 / 3502 140 / 140 Laboratory Tests Past 24 Hrs 08/22/18 05:10 Sodium 143 Potassium 3.1 L Chloride 116 H Carbon Dioxide 17.0 L Anion Gap 10 BUN 10 Creatinine 0.55 Estim Creat Clear Calc 105.22 Est GFR (MDRD) Af Amer 148 Est GFR (MDRD) Non-Af 122 BUN/Creatinine Ratio 18.1 Glucose 119 H Calcium 8.9 Code Visit Addendum: Dr. Allison I personally examined the patient and reviewed the chart. I agree with the above. 53-year-old female with a history of small cell lung cancer that was initially found in 2014 on the right. She underwent cisplatin chemotherapy with excellent results, however 2016 she was found to have a left upper lobe mass that on biopsy at [facility] in [place], was found to be small cell lung cancer. She underwent treatments with immunotherapy with the last one being in April 2018. She also had had an MRI in January which was now for any metastases. She also had prophylactic whole brain radiation. She presented to the hospital with weakness, failure to thrive, inability to complete ADLs and was found to have a significantly low potassium. She was started on IV replacement as well as p.o. replacement and on the day of discharge her potassium was 3.1. Magnesium and phosphorus were also obtained and were normal. She was started on p.o. potassium replacement twice daily. Initially there is a thought that this could be adrenal insufficiency and was started on both hydrocortisone and Florinef on admission, however given the fact that her potassium was low not high makes adrenal insufficiency unlikely, also she had had multiple cortisol levels checked back in May of this year all of which were normal. She did have an episode of confusion today that per the daughter was abnormal, so another MRI was obtained today with and without contrast which was negative for any brain metastases. On reevaluation, patient had returned to baseline. Plan will be for discharge to SNF, and would recommend repeating BMPs for the next 3 days and adjusting p.o. potassium as needed. Inpatient E&M: [id number] Disch Hosp
--- NOTE | 2018-08-22 17:15 | PCA ---
Left a message with Ita at [facility] notifying her of pts discharge for today. Faxed discharge papers and signed med list to [facility]. Set up transport with [facility] for [id number] and notified daughter Judi by phone of planned discharge and pickup time.
[2018-08-22] MEDS: Mirtazapine 15 MG Tablet PO (18:16)
--- NOTE | 2018-08-22 19:06 | NURSING ---
report called to barbara freeman at [facility]
== END 2018-08-22 18:57 | disposition skilled nursing facility (03) | DRG 422 ==
LOC: ED 20:48 → PCU 21:27
PROVIDERS: Nurse Practitioner Family; Admitting Provider Hospitalist; Emergency Provider Emergency Medicine; Family Provider Family Medicine; PCP Family Medicine; Visit Provider Family Medicine
DX: E87.6 Hypokalemia (principal); F31.9 Bipolar disorder, unspecified; C34.90 Malignant neoplasm of unspecified part of unspecified bronchus or lung; R64 Cachexia; Z68.21 Body mass index [BMI] 21.0-21.9, adult; Z79.899 Other long term (current) drug therapy; J44.9 Chronic obstructive pulmonary disease, unspecified; I95.9 Hypotension, unspecified; D64.9 Anemia, unspecified; R62.7 Adult failure to thrive; R53.81 Other malaise; E86.1 Hypovolemia; F32.9 Major depressive disorder, single episode, unspecified; F41.9 Anxiety disorder, unspecified; K59.09 Other constipation; F17.200 Nicotine dependence, unspecified, uncomplicated; F43.10 Post-traumatic stress disorder, unspecified; R41.82 Altered mental status, unspecified
CPT/HCPCS: 36591; 70553; 71045; 80048; 80076; 82550; 83735; 84100; 84443; 85025; 93005; 94640; 97163; 97165; 97530; 97802; 99284; A9585; J7030; J7040; J7120; A4216